=== PATIENT | male | born 1950 | race Caucasian/White ===

== ENCOUNTER 2017-02-07 16:03 | Emergency (ER) | payer OTHER ==
[~2017-02-07] VITALS: Ht 172.7 cm; Wt 81.6 kg
[~2017-02-07 16:03] MED LIST: AMLO5TAB4 PO; ASPCH81X PO; CHOL1CAP57 PO; CYCL10TA6 PO; HYDR-3983 PO; IPRA1AER2 INH; LPR25 PO; SIMV20TA5 PO
[2017-02-07 16:06] VITALS: BP 143/95; PULSE 76; TEMP 36.8; O2SAT 96; Ht 172.7 cm; Wt 81.6 kg
[2017-02-07] MEDS ORDERED: LIDOCAINE/EPINEPHRINE 1% 20 ML VIAL INFIL ONE (16:30)
--- NOTE | 2017-02-07 16:48 | DIAGNOSTIC IMAGING REPORT ---
LEFT HAND 3 VIEWS CLINICAL HISTORY: Laceration. Clinical concern for foreign body. FINDINGS: 3 views of left hand are compared to study dated 06/01/2007. The skeletal structures are osteopenic. No fracture is seen. Mild osteoarthritic change is present at the first carpometacarpal and metacarpophalangeal joints. Mild osteoarthritic change is also present involving the interphalangeal joints, distal greater than proximal. The overlying soft tissues are within normal limits. No radiodense foreign body is identified. IMPRESSION: 1. Osteopenia and arthritic change as above. No acute bony abnormality is identified. 2. There is no radiodense foreign body identified as clinically queried. Electronically signed by: Richie Freire M.D. 02/07/2017 4:47 PM Dictated Date/Time: 02/07/2017 4:45 PM
--- NOTE | 2017-02-07 17:33 | EMERGENCY ROOM VISIT NOTE ---
ED Visit Note First contact with patient: 16:10 The patient was seen and examined with Felicia Cruz PA-C. I agree with the history, physical and findings. Please see the note for disposition and details.
[2017-02-07] MEDS ORDERED: DOXY100C PO (17:34)
--- NOTE | 2017-02-07 17:34 | EMERGENCY ROOM VISIT NOTE ---
ED Visit Note First contact with patient: 16:10 CHIEF COMPLAINT: Left hand laceration HISTORY OF PRESENT ILLNESS: This 66-year-old male patient presents to the emergency department ambulatory after cutting the left hand just prior to arrival. The patient states that he was carrying firewood when he tripped and fell, causing a laceration to his left palm. The bleeding has not stopped. Denies weakness or numbness of the hand or finger. The patient rates the pain as sharp and 7/10. The patient denies any other injuries. The patient's Tetanus shot is up to date. REVIEW OF SYSTEMS: A 6 system review of systems was completed with positives and pertinent negatives listed in the HPI. ALLERGIES: Keflex MEDICATIONS: See med list PMH: Hypertension, hyperlipidemia SOCIAL HISTORY: Patient lives locally with family. He is a smoker and denies alcohol use. PHYSICAL EXAM: Vital Signs: Reviewed Nurse's notes, vital signs stable. GENERAL : This is a 66-year-old male, in no acute distress, well-developed, well- nourished. SKIN: There is a 2.5 cm long laceration on the palmar aspect of the left hand, just proximal to the first digit. The edges gape apart with traction. There is a small amount of debris within the wound with no significant foreign bodies. There is minimal active bleeding. No deep structures such as tendons, bones, or significant blood vessels are seen in the base of the wound. Normal strength and movement of the left thumb. Capillary refill less than 2 seconds. Normal sensation to light and sharp touch. EMERGENCY DEPARTMENT COURSE: I examined the patient. Verbal consent was obtained to perform the procedure. Using sterile technique the wound was cleansed with Betadine. The area was sterilely draped. 5 ml of 1% buffered lidocaine with epinephrine was used to anesthetize the laceration on the left hand. Once the patient was anesthetized, the wound was copiously irrigated under pressure with sterile saline. A small amount of debris was removed from the wound. The wound was explored and was as described above. The laceration was repaired using 5 simple interrupted 5-0 nylon sutures with the wound edges being well approximated. The patient tolerated the procedure well. Hemostasis was achieved. The area was cleaned with sterile saline and dressed with bacitracin ointment and bandage. As the wound was dirty, the patient will be placed on prophylactic antibiotics. He has an allergy to Keflex and therefore will be placed on doxycycline. The patient was discharged home in good condition. DIAGNOSIS: Left hand laceration Problem List Medical Problems: (1) Asthma Status: Chronic (2) History of leg surgery Status: Resolved (3) HTN (hypertension) Status: Chronic Current/Historical Medications Scheduled Amlodipine Besylate (Norvasc), 5 MG PO QPM Aspirin (Aspirin Chewable), 81 MG PO QPM Cholecalciferol (Vitamin D3), 1,000 UNITS PO QPM Doxycycline Hyclate (Vibramycin), 100 MG PO BID Hydrocodone/Acetaminophen 7.5MG/325MG ([place] 7.5MG/325MG), 1 TAB PO AMHS Ipratropium-Albuterol (Combivent Respimat), 1 PUFFS INH QID Metoprolol Tartrate (Lopressor), 25 MG PO BID Simvastatin (Zocor), 10 MG PO QPM Scheduled PRN Cyclobenzaprine Hcl (Flexeril), 10 MG PO BID PRN for Pain Allergies Coded Allergies: Cephalexin (Unverified Adverse Reaction, Unknown, throwing up, diahria , ) Vital Signs Date Time Temp Pulse Resp B/P Pulse Ox O2 Delivery O2 Flow Rate FiO2 02/07/17 16:06 36.8 76 18 143/95 96 Room Air Departure Information Impression Primary Impression: Hand laceration Dispostion Home / Self-Care Condition GOOD Prescriptions Doxycycline Hyclate (VIBRAMYCIN) 100 Mg Cap 100 MG PO BID for 7 Days, #14 CAP Prov: Felicia Cruz ., BRYON 02/07/17 Referrals Micheal Nelson M.D.([facility]) (PCP) Patient Instructions My [facility] Additional Instructions You have received 5 sutures on your hand. These sutures are NOT dissolvable and WILL need to be removed by a health care provider in 10-12 days. You can return to the Emergency Department or contact your Primary Care Provider to have the sutures removed. Proper wound care is essential for adequate wound healing and infection prevention. You can shower and clean the wound with soap and water. Do not scour over the wound, pat dry with a towel. Do not submerse the wound (i.e. bathe or dish wash) until the sutures have been removed. You can use an antibiotic ointment with a dressing over the wound for the next 3-4 days. After this time you may leave the wound dry and open to the air. If crust develops over the wound you can use a Q-tip to apply a 1:1 peroxide:water solution to clean the wound. Look for signs of infection of the wound including: increased pain, swelling, foul discharge, streaking, or increased temperature. If any of these are noticed you should return to the Emergency Department for further assessment and treatment. As with any laceration you may have received nerve damage to the surrounding tissues. This damage may or may not be permanent. You should keep the area covered with sunscreen for the first 6 months to 1 year when at risk for exposure to help minimize scarring. You can also use scar reducing creams or Vitamin E oil to help minimize scarring. For pain control, you can use the following noic-nns-zvzbepa medicines (if >12 yo): - Regular strength (325mg/tab) Tylenol (acetaminophen) 2 tabs every 4-6 hours as needed. Do not exceed 12 tablets in a 24 hour period. Avoid taking more than 4 grams (4000 mg) of Tylenol per day. This includes any other sources of acetaminophen you may take on a regular basis. - Regular strength (200 mg/tab) Advil (ibuprofen) 1-2 tabs every 4-6 hours as needed. Do not exceed a dose of 3200 mg per day. You were prescribed doxycycline to be taken twice daily as prescribed. This is an antibiotic. All antibiotics have the potential to cause diarrhea. Stop this medication and contact a medical provider if you were to develop any significant adverse side effects including: wheezing, shortness of breath, passing out, vomiting, or a diffuse rash. Always take antibiotics as directed and COMPLETE the ENTIRE course regardless of the improvement of your symptoms. Return to the emergency department if your symptoms worsen despite treatment course outlined above. Problem Qualifiers Primary Impression: Hand laceration Encounter type: initial encounter Foreign body presence: without foreign body Laterality: left Qualified Codes: S61.412A - Laceration without foreign body of left hand, initial encounter
== END 2017-02-07 17:44 | disposition home or self-care (01) ==
LOC: C.EDB 16:05 → C.EDD 17:44
DX: S61.412A Laceration without foreign body of left hand, initial encounter (principal); I10 Essential (primary) hypertension; E78.5 Hyperlipidemia, unspecified; J45.909 Unspecified asthma, uncomplicated; Z79.82 Long term (current) use of aspirin; Z79.899 Other long term (current) drug therapy; W01.0XXA Fall on same level from slipping, tripping and stumbling without subsequent striking against object, initial encounter; Y93.89 Activity, other specified; F17.200 Nicotine dependence, unspecified, uncomplicated

== ENCOUNTER 2017-02-19 19:12 | Emergency (ER) | payer OTHER ==
[~2017-02-19] VITALS: Ht 172.7 cm; Wt 83.4 kg
[2017-02-19 19:15] VITALS: BP 123/79; PULSE 78; TEMP 36.4; O2SAT 100; Ht 172.7 cm; Wt 83.4 kg
--- NOTE | 2017-02-19 23:44 | EMERGENCY ROOM VISIT NOTE ---
ED Visit Note First contact with patient: 19:23 CHIEF COMPLAINT: Suture removal HISTORY OF PRESENT ILLNESS: This 67-year-old male patient returns to the ED today for removal of sutures that were placed 13 days ago. There has been no swelling, redness, or drainage from the wound. The patient feels like the laceration is healing well. REVIEW OF SYSTEMS: A 6 system review of systems was completed with positives and pertinent negatives listed in the HPI. PMH: Unchanged from previous visit. ALLERGIES: No known allergies PHYSICAL EXAM: Vital Signs: Reviewed Nurse's notes, vital signs stable. GENERAL : Male, in no acute distress. SKIN: There is a sutured wound on the left hand with no signs of infection. There is no erythema, swelling, or tenderness. EMERGENCY DEPARTMENT COURSE: 5 sutures were removed without any difficulty and there was no separation of the wound edges. The patient was discharged home in good condition. Problem List Medical Problems: (1) Asthma Status: Chronic (2) History of leg surgery Status: Resolved (3) HTN (hypertension) Status: Chronic Current/Historical Medications Scheduled Amlodipine Besylate (Norvasc), 5 MG PO QPM Aspirin (Aspirin Chewable), 81 MG PO QPM Cholecalciferol (Vitamin D3), 1,000 UNITS PO QPM Hydrocodone/Acetaminophen 7.5MG/325MG ([place] 7.5MG/325MG), 1 TAB PO AMHS Ipratropium-Albuterol (Combivent Respimat), 1 PUFFS INH QID Metoprolol Tartrate (Lopressor), 25 MG PO BID Simvastatin (Zocor), 10 MG PO QPM Scheduled PRN Cyclobenzaprine Hcl (Flexeril), 10 MG PO BID PRN for Pain Allergies Coded Allergies: Cephalexin (Unverified Adverse Reaction, Unknown, throwing up, diahria , ) Vital Signs Date Time Temp Pulse Resp B/P Pulse Ox O2 Delivery O2 Flow Rate FiO2 02/19/17 19:15 36.4 78 18 123/79 100 Room Air Departure Information Impression Primary Impression: Encounter for removal of sutures Dispostion Home / Self-Care Condition GOOD Referrals Micheal Nelson M.D.([facility]) (PCP) Forms HOME CARE DOCUMENTATION FORM, IMPORTANT VISIT INFORMATION Patient Instructions [facility], ED Scar Tips to Minimize Additional Instructions Wash off any remaining debris and return to activity as tolerated.
== END 2017-02-19 19:36 | disposition home or self-care (01) ==
LOC: C.EDB 19:14 → C.EDD 19:36
DX: Z48.02 Encounter for removal of sutures (principal); I10 Essential (primary) hypertension; J45.909 Unspecified asthma, uncomplicated; Z98.890 Other specified postprocedural states; Z79.82 Long term (current) use of aspirin; Z79.899 Other long term (current) drug therapy; Z88.8 Allergy status to other drugs, medicaments and biological substances

== ENCOUNTER 2017-06-05 12:30 | Emergency (ER) | payer OTHER ==
[~2017-06-05] VITALS: Ht 172.7 cm; Wt 82.0 kg
[2017-06-05 12:44] VITALS: Ht 172.7 cm; Wt 82.0 kg
[2017-06-05 13:29] LABS: COMPLETE YES; EOS % 0.5 %; HEMATOCRIT 43.2 % (42-52); IG% 0.1 %; LYMPH % 22.2 %; LYMPH ABS # 1.72 K/uL (1.2-3.4); MEAN CELL VOLUME 87.6 fL (80-100); MEAN CORPUSCULAR HEMOGLOBIN 30.2 pg (25-34); MEAN CORPUSCULAR HGB CONC 34.5 g/dl (32-36); MEAN PLATELET VOLUME 11.8 fL (7.4-10.4); MONO % 9.9 %; NEUT % 67.3 %; PLATELET COUNT 135 K/uL (130-400); RED BLOOD COUNT 4.93 M/uL (4.7-6.1); WHITE BLOOD COUNT 7.74 K/uL (4.8-10.8)
[2017-06-05] MEDS ORDERED: MoRPHine SULFATE 4 MG/ML 1 ML CARP\\VIAL IV STA ×2 (13:46→15:01)
[2017-06-05] MEDS ORDERED: SODIUM CHLORIDE 0.9% 1000ML 1,000 ML IV STA (13:46)
[2017-06-05] MEDS ORDERED: SODIUM CHLORIDE 0.9% 500ML 500 ML IV STA (13:46)
[2017-06-05] MEDS ORDERED: ONDANSETRON INJ 2 MG/ML 2 ML VIAL IV STA (13:46)
[2017-06-05 13:55] LABS: BUN/CREATININE RATIO 21.4 (10-20); CREATININE 0.85 mg/dl (0.60-1.40)
[2017-06-05 13:56] LABS: MANUAL MICROSCOPIC REQUIRED? NO; REVIEW REQ? NO; URINE APPEARANCE CLOUDY (CLEAR); URINE BILIRUBIN NEG (NEG); URINE COLOR DK YELLOW; URINE NITRITE NEG (NEG); URINE PH 5.5 (4.5-7.5); URINE SPECIFIC GRAVITY 1.021 (1.000-1.030); UROBILINOGEN NEG (NEG); ZZUR CULT IF INDIC CLEAN CATCH NO
[2017-06-05 13:58] LABS: ALB/GLOB RATIO 1.1 (0.9-2)
--- NOTE | 2017-06-05 14:05 | EMERGENCY ROOM VISIT NOTE ---
History Report prepared by Vidal: Crista Alarcon Under the Supervision of: Dr. Vandana Daugherty M.D. First contact with patient: 13:35 Chief Complaint: ABDOMINAL PAIN Stated Complaint: ABD PAIN Nursing Triage Summary: Pt c/o abd pain, states "I have had diverticulitis in the past and feels the same." History of Present Illness The patient is a 67 year old male who presents to the Emergency Room with complaints of persistent lower abdominal pain starting last night. The patient had some constipation last night. His stools were small and brown. This morning , his stool had some bright red blood. His lower abdominal pain also started last night. He states that it feels like his previous diverticulitis. It has been a couple years since his last flare up. He had a colonoscopy recently which showed 3 pouches. He usually tries to watch what he eats, but notes that he did eat some cracker niraj recently. He denies any urinary symptoms. He does smoke 0.5 ppd. He denies any history of cancer, heart disease, or diabetes. Source of History: patient Onset: last night Position: abdomen (lower) Quality: other (persistent) Timing: other (diverticulitis-like) Associated Symptoms: + hematochezia, No urinary symptoms Note: Pt reports constipation. Review of Systems See HPI for pertinent positives & negatives. A total of 10 systems reviewed and were otherwise negative. Past Medical & Surgical Medical Problems: (1) Asthma (2) History of leg surgery (3) HTN (hypertension) Family History Cancer Diabetes mellitus FH: heart disease FHx: gallbladder disease Hypertension Social History Smoking Status: Never Smoker Alcohol Use: none Drug Use: none Marital Status: Housing Status: lives with significant other Occupation Status: employed Current/Historical Medications Scheduled Amlodipine Besylate (Norvasc), 5 MG PO QPM Aspirin (Aspirin Chewable), 81 MG PO QPM Cholecalciferol (Vitamin D3), 1,000 UNITS PO QPM Hydrocodone/Acetaminophen 7.5MG/325MG ([place] 7.5MG/325MG), 1 TAB PO AMHS Metoprolol Tartrate (Lopressor), 25 MG PO BID Simvastatin (Zocor), 10 MG PO QPM Scheduled PRN Cyclobenzaprine Hcl (Flexeril), 10 MG PO BID PRN for Pain Ipratropium-Albuterol (Combivent Respimat), 1 PUFFS INH QID PRN for Shortness of Breath Allergies Coded Allergies: Cephalexin (Unverified Adverse Reaction, Unknown, throwing up, diahria , ) Physical Exam Vital Signs Date Time Temp Pulse Resp B/P (MAP) Pulse Ox O2 Delivery O2 Flow Rate FiO2 06/05/17 17:45 36.5 86 18 156/86 92 06/05/17 17:00 75 23 148/101 95 06/05/17 16:55 76 19 94 06/05/17 16:50 79 22 94 06/05/17 16:45 76 15 97 06/05/17 16:40 77 22 94 06/05/17 16:35 70 13 95 06/05/17 16:30 79 24 157/84 93 06/05/17 16:28 157/90 06/05/17 16:25 76 14 92 06/05/17 16:20 84 17 87 06/05/17 16:15 80 19 89 06/05/17 16:10 86 19 93 06/05/17 16:09 134/112 06/05/17 16:05 86 19 06/05/17 16:00 87 37 06/05/17 15:55 93 31 06/05/17 15:50 93 38 06/05/17 15:45 88 21 06/05/17 15:40 83 24 06/05/17 15:35 81 23 06/05/17 15:20 82 16 06/05/17 15:15 84 46 06/05/17 15:10 82 26 06/05/17 15:05 86 20 06/05/17 15:00 81 19 06/05/17 13:55 82 18 159/98 93 Room Air 06/05/17 13:24 91 06/05/17 12:44 36.5 104 20 122/79 92 Room Air Physical Exam Vital signs reviewed. General: Well-appearing male, in no significant distress. HEENT: No scleral icterus, PERRLA, neck supple. Atraumatic. Cardiovascular: Regular rate and rhythm, no extra sounds. Pulmonary: Clear to auscultation bilaterally, normal work of breathing. Abdomen: Soft, tender to the LLQ, positive rebound, positive guarding, nondistended, positive bowel sounds. Musculoskeletal: Atraumatic, no peripheral edema. Neurologic: Patient awake alert and oriented x 3 Skin: Warm, dry, no rash Medical Decision & Procedures ER Provider Diagnostic Interpretation: Radiology results as stated below per my review and radiologist interpretation: ABD/PELVIS IV CONTRAST ONLY CT DOSE: 739.23 mGycm HISTORY: Pain LLQ pain TECHNIQUE: Multiaxial CT images of the abdomen and pelvis were performed following the use of intravenous contrast. A dose lowering technique was utilized adhering to the principles of ALARA. COMPARISON STUDY: 07/09/2014 FINDINGS: Mild bibasilar atelectasis. Liver spleen and pancreas are uniform. Several small microcysts as well as a small hemangioma potentially are present within the liver. These are similar compared to the prior study. Kidneys negative for calcification or hydronephrosis. There is a 5 mm cortical right renal cyst. The bowel pattern in the abdomen is considered nonobstructive. There is wall edematous change of the distal transverse as well as descending colonic region. Mild pericolonic infiltrative change is present. There is no evidence for abscess collection or obstruction. Atherosclerotic change and ectasia of the abdominal aorta as well as iliac vasculature. No free fluid within the pelvic cul-de-sac. Bladder is midline. Patient is status post left hip pinning. IMPRESSION: 1. Nonspecific colitis involving the descending colon as well as distal transverse colon. 2. [Moderate pericolonic infiltrative change, although there is no evidence for abscess collection or obstruction]. 3. Study is otherwise negative The above report was generated using voice recognition software. It may contain grammatical, syntax or spelling errors. Electronically signed by: Magdaleno Valadez M.D. 06/05/2017 3:00 PM Dictated Date/Time: 06/05/2017 2:56 PM Laboratory Results 06/05/17 13:05 Red Blood Count 4.93, Mean Corpuscular Volume 87.6, Mean Corpuscular Hemoglobin 30.2, Mean Corpuscular Hemoglobin Concent 34.5, Mean Platelet Volume 11.8, Neutrophils (%) (Auto) 67.3, Lymphocytes (%) (Auto) 22.2, Monocytes (%) (Auto) 9.9, Eosinophils (%) (Auto) 0.5, Basophils (%) (Auto) 0.0, Neutrophils # (Auto) 5.20, Lymphocytes # (Auto) 1.72, Monocytes # (Auto) 0.77, Eosinophils # (Auto) 0.04, Basophils # (Auto) 0.00 06/05/17 13:05 Test 06/05/17 13:05 06/05/17 13:40 White Blood Count 7.74 K/uL (4.8-10.8) Red Blood Count 4.93 M/uL (4.7-6.1) Hemoglobin 14.9 g/dL (14.0-18.0) Hematocrit 43.2 % (42-52) Mean Corpuscular Volume 87.6 fL (80-100) Mean Corpuscular Hemoglobin 30.2 pg (25-34) Mean Corpuscular Hemoglobin Concent 34.5 g/dl (32-36) Platelet Count 135 K/uL (130-400) Mean Platelet Volume 11.8 fL (7.4-10.4) Neutrophils (%) (Auto) 67.3 % Lymphocytes (%) (Auto) 22.2 % Monocytes (%) (Auto) 9.9 % Eosinophils (%) (Auto) 0.5 % Basophils (%) (Auto) 0.0 % Neutrophils # (Auto) 5.20 K/uL (1.4-6.5) Lymphocytes # (Auto) 1.72 K/uL (1.2-3.4) Monocytes # (Auto) 0.77 K/uL (0.11-0.59) Eosinophils # (Auto) 0.04 K/uL (0-0.5) Basophils # (Auto) 0.00 K/uL (0-0.2) RDW Standard Deviation 46.4 fL (36.4-46.3) RDW Coefficient of Variation 14.5 % (11.5-14.5) Immature Granulocyte % (Auto) 0.1 % Immature Granulocyte # (Auto) 0.01 K/uL (0.00-0.02) Anion Gap 7.0 mmol/L (3-11) Est Creatinine Clear Calc Drug Dose 80.4 ml/min Estimated GFR () 103.8 Estimated GFR (Non- 89.5 BUN/Creatinine Ratio 21.4 (10-20) Calcium Level 9.0 mg/dl (8.5-10.1) Total Bilirubin 0.5 mg/dl (0.2-1) Aspartate Amino Transf (AST/SGOT) 16 U/L (15-37) Alanine Aminotransferase (ALT/SGPT) 16 U/L (12-78) Alkaline Phosphatase 75 U/L (45-117) Total Protein 7.2 gm/dl (6.4-8.2) Albumin 3.7 gm/dl (3.4-5.0) Globulin 3.5 gm/dl (2.5-4.0) Albumin/Globulin Ratio 1.1 (0.9-2) Lipase 93 U/L (73-393) Urine Color DK YELLOW Urine Appearance CLOUDY (CLEAR) Urine pH 5.5 (4.5-7.5) Urine Specific [place] 1.021 (1.000-1.030) Urine Protein NEG (NEG) Urine Glucose (UA) NEG (NEG) Urine Ketones NEG (NEG) Urine Occult Blood NEG (NEG) Urine Nitrite NEG (NEG) Urine Bilirubin NEG (NEG) Urine Urobilinogen NEG (NEG) Urine Leukocyte Esterase NEG (NEG) Urine WBC (Auto) 1-5 /hpf (0-5) Urine RBC (Auto) 0-4 /hpf (0-4) Urine Hyaline Casts (Auto) 1-5 /lpf (0-5) Urine Epithelial Cells (Auto) 5-10 /lpf (0-5) Urine Bacteria (Auto) NEG (NEG) Laboratory results per my review. Medications Administered Medications (Trade) Dose Ordered Sig/Karla Route Start Time Stop Time Status Last Admin Dose Admin Sodium Chloride 500 ml @ 999 mls/hr Q31M STAT IV 06/05/17 13:46 06/05/17 14:16 DC 06/05/17 13:54 999 MLS/HR Sodium Chloride 1,000 ml @ 125 mls/hr Q8H STAT IV 06/05/17 13:46 06/05/17 19:19 DC 06/05/17 13:54 125 MLS/HR Morphine Sulfate (MoRPHine SULFATE INJ) 4 mg NOW STAT IV 06/05/17 13:46 06/05/17 13:48 DC 06/05/17 13:55 4 MG Ondansetron HCl (Zofran Inj) 4 mg NOW STAT IV 06/05/17 13:46 06/05/17 13:48 DC 06/05/17 13:54 4 MG Morphine Sulfate (MoRPHine SULFATE INJ) 4 mg NOW STAT IV 06/05/17 15:01 06/05/17 15:02 DC 06/05/17 15:01 4 MG Acetaminophen/ Hydrocodone Bitart ([place] 5/325mg Home Pack) 1 homepack UD ONCE PO 06/05/17 17:15 06/05/17 17:16 DC 06/05/17 17:15 1 HOMEPACK ED Course 1343: Past medical records reviewed. The patient was evaluated in room A11B. A complete history and physical examination was performed. 1346: Zofran Inj 4 mg IV, Morphine Sulfate 4 mg IV, NSS 1000 ml @ 125 mls/hr IV , NSS 500 ml @ 999 mls/hr IV. 1501: Morphine Sulfate 4 mg IV. 1525: I reevaluated the patient. I updated him on the results. 1705: Upon reevaluation, the patient appeared to have improvement of his symptoms. I discussed findings with him. He verbalized agreement of the treatment plan. He was discharged home. 1715: Hydrocodone Bitart/Acetaminophen 1 homepack PO. Medical Decision Differential diagnosis: Etiologies such as appendicitis, diverticulitis, PUD, biliary pathology, UTI, pancreatitis, obstruction, mesenteric ischemia, aortic pathology, infections, inflammatory bowel disease, renal colic, as well as others were entertained. This patient was evaluated and appeared to be in no significant distress. Physical exam is consistent with a left lower quadrant abdominal tenderness. CT scan of the abdomen and pelvis was performed to rule out acute diverticulitis. This study reveals a nonspecific colitis with no abscess or perforation. The patient was in the ER for multiple hours and was unable to provide a stool specimen. He was hydrated with normal saline solution and given IV morphine and Zofran 2. Patient was advised to maintain a bland diet and drink plan fluids. He was discharged with a [place] home pack. He'll follow- up with his physician this week for reevaluation. He will return to the ER for worsening of symptoms or any medical concerns. Medication Reconcilliation Current Medication List: was personally reviewed by me Blood Pressure Screening Patient's blood pressure: Elevated blood pressure Blood pressure disposition: Elevated BP felt to be situational Impression Primary Impression: Colitis Scribe Attestation The scribe's documentation has been prepared under my direction and personally reviewed by me in its entirety. I confirm that the note above accurately reflects all work, treatment, procedures, and medical decision making performed by me. Departure Information Dispostion Home / Self-Care Referrals No Doctor, Assigned (PCP) Sharon Cat C.R.N.PRegi Forms HOME CARE DOCUMENTATION FORM, IMPORTANT VISIT INFORMATION Patient Instructions My [facility] Additional Instructions Diagnosis: Colitis Drink plenty of fluids [place] diet, avoid greasy spicy foods. [place] 1-2 tabs every 6 hours as needed for pain, do not drive or take tylenol with this medication Follow up with your doctor this week for reevaluation Return to the ED for worsening of symptoms or any medical concerns.
[2017-06-05] MEDS ORDERED: OPTIRAY 320 IV PRN (14:15)
--- NOTE | 2017-06-05 15:01 | DIAGNOSTIC IMAGING REPORT ---
ABD/PELVIS IV CONTRAST ONLY CT DOSE: 739.23 mGycm HISTORY: Pain LLQ pain TECHNIQUE: Multiaxial CT images of the abdomen and pelvis were performed following the use of intravenous contrast. A dose lowering technique was utilized adhering to the principles of ALARA. COMPARISON STUDY: 07/09/2014 FINDINGS: Mild bibasilar atelectasis. Liver spleen and pancreas are uniform. Several small microcysts as well as a small hemangioma potentially are present within the liver. These are similar compared to the prior study. Kidneys negative for calcification or hydronephrosis. There is a 5 mm cortical right renal cyst. The bowel pattern in the abdomen is considered nonobstructive. There is wall edematous change of the distal transverse as well as descending colonic region. Mild pericolonic infiltrative change is present. There is no evidence for abscess collection or obstruction. Atherosclerotic change and ectasia of the abdominal aorta as well as iliac vasculature. No free fluid within the pelvic cul-de-sac. Bladder is midline. Patient is status post left hip pinning. IMPRESSION: 1. Nonspecific colitis involving the descending colon as well as distal transverse colon. 2. [Moderate pericolonic infiltrative change, although there is no evidence for abscess collection or obstruction]. 3. Study is otherwise negative The above report was generated using voice recognition software. It may contain grammatical, syntax or spelling errors. Electronically signed by: Magdaleno Valadez M.D. 06/05/2017 3:00 PM Dictated Date/Time: 06/05/2017 2:56 PM
[2017-06-05] MEDS ORDERED: NORCO 5/325MG HOME PACK PO ONE (17:15)
[2017-06-05 17:45] VITALS: BP 156/86; PULSE 86; TEMP 36.5; O2SAT 92
== END 2017-06-05 16:55 | disposition home or self-care (01) ==
LOC: C.EDB 12:31 → C.EDA 16:55
DX: K52.9 Noninfective gastroenteritis and colitis, unspecified (principal); J45.909 Unspecified asthma, uncomplicated; I10 Essential (primary) hypertension; Z98.890 Other specified postprocedural states; Z79.82 Long term (current) use of aspirin; Z79.899 Other long term (current) drug therapy; Z88.8 Allergy status to other drugs, medicaments and biological substances; Z80.9 Family history of malignant neoplasm, unspecified; Z83.3 Family history of diabetes mellitus; Z82.49 Family history of ischemic heart disease and other diseases of the circulatory system; Z83.79 Family history of other diseases of the digestive system

== ENCOUNTER 2017-11-03 14:51 | Emergency (ER) | payer OTHER ==
[~2017-11-03] VITALS: Ht 172.7 cm; Wt 83.0 kg
[2017-11-03 15:00] VITALS: Ht 172.7 cm; Wt 83.0 kg
[2017-11-03] MEDS ORDERED: OXYCODONE HCL IR 5 MG TAB (IMMEDIATE RELEASE) PO STA (15:08)
[2017-11-03] MEDS ORDERED: KETOROLAC TROMETHAMINE 60 MG/2 ML VIAL IM STA (15:08)
[2017-11-03] MEDS ORDERED: CYCLOBENZAPRINE HCL 10 MG TAB PO STA (15:08)
--- NOTE | 2017-11-03 15:56 | DIAGNOSTIC IMAGING REPORT ---
LUMBAR SPINE 5 VIEWS CLINICAL HISTORY: Low back pain. FINDINGS: 5 views of the lumbar spine are correlated with abdominal CT dated 06/05/2017. The skeletal structures are osteopenic. There is no radiographic evidence of fracture or malalignment involving the lumbar spine. Vertebral body height is maintained throughout the lumbar spine. Minimal retrolisthesis is seen at L3-L4. Alignment is otherwise preserved. There is straightening of the lumbar lordosis. The transverse and spinous processes appear intact. Anterior and lateral marginal osteophytes are seen throughout. There is moderate disc space narrowing at L3-L4 with associated endplate sclerosis. A similar finding is seen at L5-S1. Mild disc space narrowing is seen at L4-L5. The remaining disc spaces are maintained. Mild facet arthropathy is noted in the lower lumbar region. The bony pelvis is intact as imaged. Sclerotic change is seen in the sacroiliac joints, left greater than right. Postoperative change is partially visualized in the left femur. There is advanced atherosclerotic calcification and ectasia of the abdominal aorta. No bowel obstruction is seen. IMPRESSION: 1. No acute bony abnormality is seen involving the lumbar spine. 2. Osteopenia and multilevel spondylosis as above. This is similar in appearance to prior studies. Dictated: 11/03/2017 3:46 PM Transcribed: 11/03/2017 3:56 PM [facility] Electronically signed by: Richie Freire M.D. 11/03/2017 3:59 PM Dictated Date/Time: 11/03/2017 3:46 PM
--- NOTE | 2017-11-03 16:27 | EMERGENCY ROOM VISIT NOTE ---
ED Visit Note First contact with patient: 15:03 CHIEF COMPLAINT: Low back pain HISTORY OF PRESENT ILLNESS: This 67-year-old male presents to the ER with chief complaint of low back pain. The patient states yesterday he was shoveling snow and then went to clam picker a 25 pound salt bag and got pain in his lower back. The patient states he initially had some pain radiating down his left leg to his knee but that has resolved. The patient denies any numbness and tingling. The patient denies any loss of bowel or bladder control. The patient denies any saddle anesthesia. The patient states that he sat in a chair most of the day yesterday after he was finished shoveling since he could barely move. He took a Vicodin today just to get into the ER. The patient denies any chronic back pain. REVIEW OF SYSTEMS: 6 system review was performed and was negative unless stated otherwise in history of present illness. PMH: The patient is healthy; kidney disease SOCIAL HISTORY: Patient lives with his . The patient admits to tobacco use but denies any alcohol use. PHYSICAL EXAM: Vital Signs normal: Reviewed Nurse's notes and agree. GENERAL: 67-year-old male appears uncomfortable secondary to back pain. MENTAL STATUS: Alert and oriented in no acute distress. LUMBAR SPINE: No gross bony abnormality noted. Patient is tender to palpation over the lower spinous processes. He is mildly tender to palpation over the paravertebral regions bilaterally. He has limited range of motion in all directions secondary to pain. NEURO: Patient is able to heel and toe walk without difficulty. I lateral patellar and Achilles reflexes are 2+. Sensation is intact to pinprick bilateral lower extremities. Negative straight leg raise bilaterally. EMERGENCY DEPARTMENT COURSE: The patient was evaluated. The patient was given Toradol 60 mg IM, OxyIR 10 mg p.o. and Flexeril 10 mg p.o. X-ray of the lumbar spine was ordered and interpreted by the radiologist and myself. DIAGNOSTICS:LUMBAR SPINE 5 VIEWS CLINICAL HISTORY: Low back pain. FINDINGS: 5 views of the lumbar spine are correlated with abdominal CT dated 06/05/2017. The skeletal structures are osteopenic. There is no radiographic evidence of fracture or malalignment involving the lumbar spine. Vertebral body height is maintained throughout the lumbar spine. Minimal retrolisthesis is seen at L3-L4. Alignment is otherwise preserved. There is straightening of the lumbar lordosis. The transverse and spinous processes appear intact. Anterior and lateral marginal osteophytes are seen throughout. There is moderate disc space narrowing at L3-L4 with associated endplate sclerosis. A similar finding is seen at L5-S1. Mild disc space narrowing is seen at L4-L5. The remaining disc spaces are maintained. Mild facet arthropathy is noted in the lower lumbar region. The bony pelvis is intact as imaged. Sclerotic change is seen in the sacroiliac joints, left greater than right. Postoperative change is partially visualized in the left femur. There is advanced atherosclerotic calcification and ectasia of the abdominal aorta. No bowel obstruction is seen. IMPRESSION: 1. No acute bony abnormality is seen involving the lumbar spine. 2. Osteopenia and multilevel spondylosis as above. This is similar in appearance to prior studies. Dictated: 11/03/2017 3:46 PM Transcribed: 11/03/2017 3:56 PM [facility] Electronically signed by: Richie Freire M.D. 11/03/2017 3:59 PM Dictated Date/Time: 11/03/2017 3:46 PM The patient was informed of the findings. The patient stated he was feeling much better. The patient was independently evaluated by Dr. shipman who agrees with treatment plan. The patient was discharged home in stable condition with his driving.. DIAGNOSIS: Lumbar strain DISCHARGE INSTRUCTIONS AND TREATMENT: Ibuprofen 600 mg every 6 hours with food for pain. Rx is given for Vicodin Oxy IR mg. 1-2 tablets every 6 hours as needed for more severe pain. Dispense [address] taking the OxyIR. Patient was also given Rx for Flexeril 10 mg. One tablet p.o. every 8 hours for muscle spasms. Dispense [address] taking the Flexeril. Avoid staying in any one position for an extended period of time. Follow-up with your family doctor on Tuesday for reevaluation. If symptoms worsen in the interim, return to ER. Problem List Medical Problems: (1) Asthma Status: Chronic (2) History of leg surgery Status: Resolved (3) HTN (hypertension) Status: Chronic Current/Historical Medications Scheduled Amlodipine Besylate (Norvasc), 5 MG PO QPM Aspirin (Aspirin Chewable), 81 MG PO QPM Cholecalciferol (Vitamin D3), 1,000 UNITS PO QPM Hydrocodone/Acetaminophen 7.5MG/325MG ([place] 7.5MG/325MG), 1 TAB PO AMHS Metoprolol Tartrate (Lopressor), 25 MG PO BID Simvastatin (Zocor), 10 MG PO QPM Scheduled PRN Cyclobenzaprine Hcl (Flexeril), 10 MG PO BID PRN for Pain Ipratropium-Albuterol (Combivent Respimat), 1 PUFFS INH QID PRN for Shortness of Breath Allergies Coded Allergies: Cephalexin (Unverified Adverse Reaction, Unknown, throwing up, diahria , ) Vital Signs Date Time Temp Pulse Resp B/P (MAP) Pulse Ox O2 Delivery O2 Flow Rate FiO2 11/03/17 15:00 36.5 101 18 115/78 91 Room Air Medications Administered Medications (Trade) Dose Ordered Sig/Karla Route Start Time Stop Time Status Last Admin Dose Admin Ketorolac Tromethamine (Toradol Inj) 60 mg NOW STAT IM 11/03/17 15:08 11/03/17 15:11 DC 11/03/17 15:32 60 MG Cyclobenzaprine HCl (Flexeril Tab) 10 mg NOW STAT PO 11/03/17 15:08 11/03/17 15:11 DC 11/03/17 15:19 10 MG Oxycodone HCl (Roxicodone Immediate Rel Tab) 10 mg NOW STAT PO 11/03/17 15:08 11/03/17 15:11 DC 11/03/17 15:20 10 MG Departure Information Referrals No Doctor, Assigned (PCP) Patient Instructions [facility]
[2017-11-03] MEDS ORDERED: CYCL10TA6 PO (16:33)
[2017-11-03] MEDS ORDERED: OXYC1TAB3 PO (16:33)
[2017-11-03 17:10] VITALS: BP 115/78; PULSE 101; TEMP 36.5; O2SAT 91
== END 2017-11-03 17:11 | disposition home or self-care (01) ==
LOC: C.EDB 14:53 → C.EDD 17:11
DX: S39.012A Strain of muscle, fascia and tendon of lower back, initial encounter (principal); X50.9XXA Other and unspecified overexertion or strenuous movements or postures, initial encounter; M85.88 Other specified disorders of bone density and structure, other site

== ENCOUNTER 2019-04-03 06:10 | Observation (INO) ==
[~2019-04-03 06:10] MED LIST changes: -AMLO5TAB4 PO; -ASPCH81X PO; -CHOL1CAP57 PO; +CLINDAMYCIN 600 MG/54 ML BAG IV SCH; -CYCL10TA6 PO; -HYDR-3983 PO; -IPRA1AER2 INH; -LPR25 PO; +LR 15ML/HR IV SCH; -SIMV20TA5 PO
[2019-04-03] MEDS ORDERED: BUPIVACAINE 0.25% 30 ML VIAL ONE (07:19)
[2019-04-03] MEDS ORDERED: BACITRACIN INJ 50,000 UNIT VIAL ONE (07:19)
[2019-04-03] MEDS ORDERED: LIDOCAINE HCL 1% 20 ML VIAL ONE (07:19)
--- NOTE | 2019-04-03 08:00 | History & Physical Bridge Note ---
Date of Service April 03, 2019 History & Physical Bridge Note I have examined the patient, reviewed the History & Physical and in the interval since the performance of the History & Physical I have noted the following changes of clinical significance: no changes noted
--- NOTE | 2019-04-03 08:00 | Pre Anesthesia Assessment ---
Date of Service April 03, 2019 Pre Sedation Assessment Vital Signs Temp Pulse Resp BP Pulse Ox 04/03/19 06:40 36.4 C L 68 18 159/97 H 96 Cardiovascular RRR, no murmur, no edema Respiratory normal respiratory effort, lungs clear to auscultation Pre-Sedation Airway Assessment Smoking Status: Current every day smoker Hx Sleep Apnea: No Hx Difficult Intubation: No Short, Thick Neck: No Thyromental Distance: < 3.5 Finger Breadths Oral Cavity: + Dental Abnormalities Mallampati Class: III ASA: ASA3 NPO Status Date of Last Intake of Fluids: 04/02/19 Date of Last Intake of Solid Food: 04/02/19 Procedure Planning Contraindications for Sedation: none Current Medications Reviewed: Yes Notes The planned sedation has been discussed with the patient. Informed Consent was obtained. I have identified the patient, determined the appropriateness of sedation and have assessed the patient immediately prior to the procedure. All medicine(s) and interventions are by my order.
[2019-04-03] MEDS ORDERED: MIDAZOLAM HCL 5 MG/ML 1 ML VIAL ONE (08:10)
[2019-04-03] MEDS ORDERED: fentaNYL citrate 100 MCG/2 ML VIAL ONE (08:10)
--- NOTE | 2019-04-03 09:18 | Post Anesthesia Assessment ---
Date of Service April 03, 2019 Post Sedation Assessment Vital Signs Temp Pulse Resp BP Pulse Ox 04/03/19 06:40 36.4 C L 68 18 159/97 H 96 Recovery Score Activity: Moves 4 extremities Respiration: Deep Breath/Cough Circulation: +/-20% PreAnes Value Consciousness: Fully Awake Oxygen Saturation: > 92% On Room Air Discharge Sedation Level of Care: Fast Track Phase II Post Sedation Plan On clinical assessment, the patient appears to have tolerated the sedation without complications. Patient is recovering as anticipated. Patient will continue to be monitored by nursing and may be discharged when sedation discharge criteria are met per below protocol. Upon Completions of procedure and additional 15 minutes continue every 5 minute vital signs and the P.A.R. score; then discharge to a Phase I or Fast Track to Phase II per the following guidelines: * Discharge Patient to appropriate Phase II area if PAR is 8 or greater or return to pre- procedure baseline. The post - procedure orders will be as directed. * If PAR score is less than 8 or not return to pre-procedure baseline then patient will follow Phase I monitoring till PAR is reached for Phase II. The Phase I may be done in procedure room or may call to secure a Phase I area. * If naloxone or flumazenil are used for reversal, hold in Phase I for continued monitoring from when last reversal dose was given for a minimum of 60 minutes or longer pending the nurse and/or physician discretion of patient condition before discharge to Phase II. Please call the Sedation Physician to re-evaluate and complete post-note for discharge to Phase II area. Do NOT discharge from procedure sedation or Phase 1 until post- sedation evaluation note is complete by procedure /sedation MD Sedation Discharge Instructions to be given to the patient at discharge to home.
--- NOTE | 2019-04-03 09:18 | Operative Report ---
Post Operative Report Pre & Post Diagnosis TBS Operation Date: 04/03/19 08:00 <No data on this case meets the specified criteria> Procedure Operation Date: 04/03/19 08:00 Actual Procedures p Pacer with A/V Leads (Dual) - Tali Rodriguez DO Surgeon Tali Rodriguez, DO Higher Level Teaching Assistant none Estimated Blood Loss 15 Findings Consistent with Post-Op Diagnosis Specimens None Description of Procedure see official report I attest to the content of the Intraoperative Record and any orders documented therein. Any exceptions are noted below.
[2019-04-03] MEDS ORDERED: CYCLOBENZAPRINE HCL 10 MG TAB PO PRN (09:45)
[2019-04-03] MEDS ORDERED: IPRATROPIUM BROMIDE/ALBUTEROL respimat INH INH PRN (09:45)
[2019-04-03] MEDS: ACETAMINOPHEN 325 MG TAB PO PRN ×2 (11:44→20:40)
--- NOTE | 2019-04-03 12:22 | Discharge Summary ---
Date of Service April 03, 2019 Admission HPI Per Admitting Provider pt admitted for elective ppm implant Admission Exam Per Admitting Provider aaox3, NAD NC/AT, EOMI Supple No JVD Nrl S1/S2, No murmur CTA b/l no w/r/r soft nt/nd no LE edema b/l skin intact no focal deficits Principal Diagnosis TBS s/p dual chamber pacemaker Discharge Exam aaox3, NAD NC/AT, EOMI Supple No JVD Nrl S1/S2, No murmur CTA b/l no w/r/r soft nt/nd no LE edema b/l skin intact no focal deficits left pectoral incision intact, no hematoma mild ecchymosis ENMT Mallampati Class: III Respiratory normal respiratory effort, lungs clear to auscultation Cardiovascular RRR, no murmur, no edema Discharge Data Allergies Allergy/AdvReac Type Severity Reaction Status Date / Time cephalexin AdvReac Unknown throwing Verified 04/03/19 06:34 up, diahria Procedures Performed Operation Date: 04/03/19 08:00 Actual Procedures p Pacer with A/V Leads (Dual) - Tali Rodriguez DO Ordered Studies CXR: No PTX, leads in position ECG: SR Pacemaker Interrogation/reprogramming: Normal function and stable lead testing since implant 04/03/19 08:30 EP Lab Images for PACS ONCE Hospital Course (1) Tachy-eric syndrome: Total Time Total Time Spent Total Time Spent (In Minutes): 30 Total Time Includes: Examination of the Patient, Discharge Planning, Medication Reconciliation and Other Discharge Plan Discharge Items Patient Disposition: Home - Self-Care Reason For Visit: Tachy-Eric Syndrome Discharge Diagnosis: TBS s/p pacemaker Condition: Good Discharge Goals: Improve function Activity: As commented below Activity Comment: do not lift your left elbow over your left shoulder for 1 month Lifting: No more than 10 pounds Lifting Comment: do not lift more than 10 pounds with your left arm for 2 weeks Bathing: Keep incision dry Bathing Comment: can shower thurs let water run over the incision do not scrub it Sexual Activity: After two weeks Driving/Machine Use: Resume 1 day after discharge Non-emergency contact: Hand Ironer Follow-up/Referrals: Kimmy Han PA-C [Primary Care Provider] - Diet: Heart Healthy Addtl Provider Instructions: device and wound check as scheduled in [facility] next week if you notice any swelling call my office immediately Prescriptions: Continued CYCLOBENZAPRINE HCL (FLEXERIL) 10 MG tablet 10 mg PO BID PRN (Reason: Pain) Qty: 21 RF: 0 Hydrocodone/Acetaminophen 7.5MG/325MG ([place] 7.5MG/325MG) tablet 1 tab PO AMHS Qty: 0 RF: 0 SIMVASTATIN (ZOCOR) 20 MG tablet 10 mg PO QPM Qty: 0 RF: 0 CHOLECALCIFEROL (VITAMIN D3) 1,000 UNIT capsule 1,000 unit PO QPM Qty: 0 RF: 0 METOPROLOL TARTRATE (LOPRESSOR) 25 MG tablet 25 mg PO BID 30 Days Qty: 0 RF: 2 IPRATROPIUM-ALBUTEROL (COMBIVENT RESPIMAT) 1 AER AER 1 puff Inhalation QID PRN (Reason: Shortness of Breath) Qty: 0 RF: 0 Stand-Alone Forms: [facility] Discharge Orders: Discharge Order (Routine); Ordered 04/04/19 Ordered By: Tali Rodriguez Admission Data Admit Date/Time: 04/03/19 08:52 Attending Provider: Tali Rodriguez Admit Provider: Tali Rodriguez Primary Care Provider: Kimmy Han Service: Telemetry
[2019-04-03] MEDS: OXYCODONE/ACETAMINOPHEN 5mg/325mg TAB PO PRN ×2 (16:01→21:29)
[2019-04-03] MEDS: METOPROLOL TARTRATE 25 MG TAB PO SCH (20:41)
[2019-04-03] MEDS ORDERED: SIMVASTATIN 10 MG TAB PO SCH (21:00)
[2019-04-03] MEDS ORDERED: CHOLECALCIFEROL 1,000 UNITS TAB PO SCH (21:00)
[2019-04-03] MEDS ORDERED: HYDROCODONE/ACETAMINOPHEN 7.5/325MG TAB PO SCH (21:00)
[2019-04-04] MEDS: ACETAMINOPHEN 325 MG TAB PO PRN (03:06)
[2019-04-04] MEDS: OXYCODONE/ACETAMINOPHEN 5mg/325mg TAB PO PRN (03:39)
[2019-04-04] MEDS ORDERED: CLINDAMYCIN 600 MG/54 ML BAG IV SCH (06:00)
--- NOTE | 2019-04-04 07:31 | XRay Report ---
TWO VIEW CHEST CLINICAL HISTORY: Status post pacemaker implantation. FINDINGS: PA and lateral chest radiographs are compared to study dated 05/08/2013 and correlated with chest CT dated 02/20/2019. A 2-lead cardiac pacemaker has been placed. Leads project over the right at rial appendage and the right ventricle. The heart is top normal for projection noting atherosclerotic calcification of the thoracic aorta. The pulmonary vasculature is noncongested. Enlargement of the c entral pulmonary arteries suggests pulmonary artery hypertension. Emphysema and chronic interstitial thickening are similar to previous. Foci of linear scarring/atelectasis are seen bilaterally. No airs pace consolidation or pleural effusion is identified. There is no pneumothorax. The skeletal structur es are osteopenic. The bony thorax appears intact. IMPRESSION: 1. A 2-lead cardiac pacemaker has been placed as detailed above. No pneumothorax is identified. 2. There is no radiographic evidence of congestive failure. 3. Emphysematous change is noted. Electronically signed by: Richie Freire M.D. 04/04/2019 7:30 AM
[2019-04-04] MEDS: METOPROLOL TARTRATE 25 MG TAB PO SCH (07:33)
--- NOTE | 2019-04-11 01:13 | Operative Report ---
DATE OF OPERATION: 04/03/2019 PREOPERATIVE DIAGNOSIS: Tachybrady syndrome. POSTOPERATIVE DIAGNOSIS: Tachybrady syndrome. PROCEDURE: Dual chamber responsive permanent pacemaker under fluoroscopic guidance. SURGEON: Tali Rodriguez DO. LAV CREWMAN: None. ANESTHESIA: Monitored conscious sedation administered under my supervision by Laly Nieto. Start time 8:25 end time 9:11. Total of 4 mg of Versed, 100 mcg of fentanyl. INTRAVENOUS FLUIDS: 64 mL. ANTIBIOTICS: 600 mg of clindamycin. BLOOD LOSS: 15 mL. URINE OUTPUT: Not applicable. SPECIMENS: None. FINDINGS: See below. DRAINS: None. INDICATIONS: This is a 69-year-old gentleman with past medical history of paroxysmal atrial tachycardia, near syncope, carotid artery stenosis bilaterally, hypertension, hyperlipidemia, thrombocytopenia, hepatitis C, tobacco use, PTSD, history of skin cancer. He has had evidence of tachybrady syndrome and was recommended a dual chamber pacemaker. CONSENT: Consent was obtained prior to the patient going into electrophysiology lab. The patient was informed risk, benefits and alternative of procedure. Risks include but not limited to sudden cardiac , cardiac arrhythmia, cerebrovascular accident, myocardial infarction, injury to the blood vessels, chamber of the heart, lung, bleeding, and infection. The patient understood these risks and agreed to the procedure as planned. Informed consent obtained. DESCRIPTION OF PROCEDURE: The patient was brought into the electrophysiology lab in fasting state. He was connected to continuous superintendent local. A timeout was performed to ensure patient identity and procedure correctly. The patient was prepped and draped over the left infraclavicular space in normal surgical standard fashion. Monitored conscious sedation was given throughout the procedure for patient's comfort level. [place] precautions were maintained throughout the procedure. 10 mL of 1% lidocaine-bupivacaine mixture was given in the left deltopectoral groove. Incision was made in left deltopectoral groove. Blunt dissection performed down to identify the cephalic vein. Cephalic vein was identified and isolated using 0 silk ties. The vein was nicked with an 11 blade and a guidewire was inserted without any resistance. An 8-[place] sheath was inserted over the guidewire without any resistance. The dilator was removed and a second guidewire was inserted through the 8-[place] sheath to allow for retained venous access. Sheath was removed, flushed and dilator reinserted over and then was reinserted along the guidewire. The guidewire and dilator removed. Then the right ventricular lead was advanced into right ventricular apex and under fluoroscopic guidance was advanced into the right ventricle under fluoroscopic guidance and advanced into and positioned into right ventricular apex. There was adequate pacing and sensing thresholds and no diaphragmatic stimulation at high output pacing. The 8-[place] sheath was peeled away and lead was fixated to pectoralis muscle using 0 silk suture. A second 8-[place] sheath was reinserted over the retained guidewire. The guidewire and dilator removed. The right atrial lead was then advanced into right atrium and positioned into atrial appendage under fluoroscopic guidance. There was adequate pacing and sensing thresholds and no diaphragmatic stimulation at high output pacing. The 8-[place] sheath was peeled away and lead was fixated pectoralis muscle using 0 silk suture. A pacemaker pocket was created using blunt dissection of the pectoralis muscle within the pectoral fascia. The pocket was flushed with copious amounts of bacitracin saline wash and inspected for hemostasis. The pulse generator was then attached to leads, making sure that the pins were in appropriate position, passed set screw and set screws were all tightened. Pulse generator was then placed in the pocket, making sure that the leads were lying flat beneath the device. A stay stitch using 0 silk suture was used to secure the pectoralis muscle. The incision was then closed in 3-layer fashion with 2-0 Vicryl interrupted suture followed by 3-0 Vicryl interrupted suture followed by 4-0 Monocryl running stitch. Dermabond was applied. INTRAOPERATIVE TESTIN. Right atrial lead: P-wave is 4.1 millivolts, impedance 532 ohms, threshold 0.8 volts at 0.7 milliamps. 2. Right ventricular lead: R wave is 18 millivolts, impedance 456 ohms, threshold 0.4 volts at 0.6 milliamps. FINAL PARAMETERS: 1. Right atrial lead: P waves 4.6 millivolts, impedance 570 ohms, threshold 0.5 volts at 0.4 milliseconds. 2. Right ventricular lead: R-wave 20 millivolts, impedance 931 ohms, threshold 0.5 volts at 0.4 milliseconds. FINAL PARAMETERS: MVP-R 60/130, right atrial amplitude 3.5 volts, pulse width 0.4 milliseconds, sensitivity 0.3 millivolts. Right ventricular amplitude 3.5 volts, pulse width 0.4 milliseconds, sensitivity 1.2 millivolts. IMPRESSION: Successful implantation of dual chamber rate responsive permanent pacemaker under fluoroscopic guidance secondary to tachybrady syndrome. PLAN: Monitor patient overnight, 12-lead ECG, chest x-ray. He is not allowed to lift left elbow or left shoulder for 1 month. He cannot lift more than 10 pounds with the left arm for 2 weeks. He can shower in 2 days, let water run over the incision, do not scrub it. He should follow up in our [facility] in 1 week's time for device and wound check. I attest to the content of the Intraoperative Record and any orders documented therein. Any exception s are noted below.
== END 2019-04-04 10:20 | disposition home or self-care (01) ==
LOC: ASU 06:10 → 2S 06:10

== ENCOUNTER 2022-10-17 08:30 | Inpatient (IN) ==
[2022-10-17] MEDS ORDERED: SODIUM CHLORIDE 0.9% 500 ML IV STA (08:39)
[2022-10-17] MEDS ORDERED: ONDANSETRON INJ 2 MG/ML 2 ML VIAL IV STA (08:39)
[2022-10-17] MEDS ORDERED: MoRPHine SULFATE 4 MG/ML 1 ML CARP\\VIAL IV STA (08:39)
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
[2022-10-17] MEDS ORDERED: methylPREDNISolone 125 MG/2 ML VIAL IV STA (08:58)
[2022-10-17] MEDS ORDERED: ALBUT/IPRATROP 3MG/0.5MG NEB 3 ML VIAL NEB STA (08:58)
[2022-10-17 09:01] LABS: Base Excess VBG -3.6 mEq/L; HCO3 VBG 20 mmol/L; Oxygen Saturation VBG 72.2 %; PCO2 VBG 33 mmHg (38-50); PO2 VBG 42 mmHg
[2022-10-17 09:14] LABS: INR 1.2 (0.9-1.1); Partial Thromboplastin Ratio 0.8; Partial Thromboplastin Time 23.3 Seconds (21.0-31.0); Prothrombin Time 12.6 Seconds (9.0-12.0)
[2022-10-17 09:21] LABS: Alanine Aminotransferase 15 U/L (7-52); Albumin Globulin Ratio 1.4 (0.9-2); Albumin Level 4.1 gm/dl (3.4-5.0); Alkaline Phosphatase 50 U/L (34-104); Anion Gap 13 (3-11); Aspartate Aminotransferase 57 U/L (13-39); BUN Creatinine Ratio 23.7 (10-20); Bilirubin,Total 0.9 mg/dl (0.2-1.0); Blood Urea Nitrogen 31 mg/dl (6-23); Calcium 9.2 mg/dl (8.5-10.1); Carbon Dioxide 19 mmol/L (21-32); Chloride 102 mmol/L (98-107); Est GFR (African American) 62.2 ml/min; Est GFR (Non-African American) 53.6 ml/min; Globulin 2.9 gm/dl (2.5-4.0); Glucose 148 mg/dl (70-99(Fasting)); Potassium 4.4 mmol/L (3.5-5.1); Sodium 134 mmol/L (136-145)
[2022-10-17] MEDS ORDERED: OPTIRAY 350 100ml IV ONE (09:22)
--- NOTE | 2022-10-17 09:36 | XRay Report ---
XR chest 1V portable HISTORY: 72 years-old Male R sided CP, recent rib fractures acute chest pain COMPARISON: Chest CT of same day TECHNIQUE: AP view of the chest FINDINGS: Cardiac megaly with left subclavian pacer. Pulmonary emphysema. Trace pleural effusions with mild dep endent bibasilar consolidation. Degenerative changes of the shoulders and spine. Subtle acute nondisp laced right-sided rib fractures are better seen on the comparison chest CT. Right shoulder rotator cu ff calcific tendinosis. IMPRESSION: 1. Stable exam compared to the chest CT obtained 24 hours earlier. 2. Subtle acute right-sided rib fractures are better seen on the comparison chest CT. No pneumothorax . ACT 112: Negative or not required by law. The above report was generated using voice recognition software. It may contain grammatical, syntax o r spelling errors. Electronically signed by: Michael Boateng M.D. 10/17/2022 9:35 AM
[2022-10-17 09:41] LABS: Hematocrit (blood only) 36.3 % (40.1-51.0); Hemoglobin 11.5 g/dl (14.0-18.0); Mean Corpuscular Hgb Conc 31.7 g/dL (32.0-36.0); Mean Corpuscular Volume 88.5 fL (80.0-100.0); Nucleated RBC # (auto) 0.05 K/uL (0-0); Nucleated RBC % (auto) 0.1 %; Platelet Count 43 K/uL (130-400); RDW Coefficient of Variation 21.2 % (11.5-14.5); RDW Standard Deviation 66.8 fL (36.4-46.3); White Blood Count 48.19 K/ul (4.8-10.8)
[2022-10-17 09:43] LABS: ALC (manual) 1.45 K/uL (1.2-3.4); ANC (manual) 27.47 K/uL (1.4-6.5); Hypochromasia Present; Lymphocytes # (manual) 1.45 K/uL (1.2-3.4); Lymphocytes % (manual) 3 %; Monocytes # (manual) 18.79 K/uL (0.24-0.82); Monocytes % (manual) 39 %; Neutrophils # (manual) 27.47 K/uL (1.4-6.5); Neutrophils % (manual) 57 %; Platelet Estimate Decreased (Normal); Polychromasia 1+; Toxic Vacuolation 1+
--- NOTE | 2022-10-17 10:11 | CT Scan Report ---
CT CHEST WITH IV CONTRAST; ABDOMEN AND PELVIS CT WITH IV CONTRAST CT DOSE: 532.01 mGy.cm HISTORY: Acute chest and abdominal trauma with right-sided rib fractures. trauma, hypoxia TECHNIQUE: Multiaxial CT images of the chest, abdomen and pelvis were performed following the IV admi nistration of 90 cc of Optiray, A dose lowering technique was utilized adhering to the principles of ALARA. COMPARISON STUDY: Chest CT October 16, 2022, CT abdomen and pelvis 02/01/2022. FINDINGS: CHEST CT: Unremarkable thyroid. Left subclavian pacer. Moderate cardiomegaly without pericardial effusion. Exte nsive coronary artery calcifications. Atherosclerosis of the aorta without aneurysm. There is patency of the imaged great vessels. The opacified pulmonary artery is unremarkable. No lymphadenopathy. Tra ce pleural effusions with mild dependent bibasilar atelectasis. Respiratory motion artifact limits ev aluation of the lungs. Moderate emphysema. Mild tracheobronchial secretions. Unremarkable soft tissue s. Acute nondisplaced fracture of the posterior right 10th rib again noted with acute minimally displ aced fracture of the posterior right 11th rib. 25% superior endplate compression of the T7 vertebral body without retropulsion is chronic. CT ABDOMEN/PELVIS: No pneumatosis or pneumoperitoneum. The spleen measures the upper limits of normal at 13 cm. Unremark able pancreas and adrenal glands. Vicarious excretion of contrast in the gallbladder. There are a few scattered subcentimeter hypodensities of the liver which too small to characterize, likely benign. P atent portal vein. There are a few right-sided renal cysts again noted. No hydronephrosis. Contrast n oted within the urinary bladder lumen. 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 High-grade stenosis of the left common iliac artery is 319. N o lymphadenopathy identified. No bowel obstruction or bowel wall thickening. Moderate colonic fecal retention. Normal appendix. Unr emarkable soft tissues. No acute fracture identified. ORIF changes of the left proximal femur. IMPRESSION: 1. Stable exam from the chest CT obtained 24 hours earlier. 2. Acute fractures of the posterior right 10th and 11th ribs are redemonstrated without pneumothorax. 3. Trace pleural effusions with mild bibasilar atelectasis. 4. Pulmonary emphysema. 5. No acute posttraumatic intra-abdominal or intrapelvic abnormality. ACT 112: Negative or not required by law. The above report was generated using voice recognition software. It may contain grammatical, syntax o r spelling errors. Electronically signed by: Michael Boateng M.D. 10/17/2022 10:10 AM
--- NOTE | 2022-10-17 11:01 | Electrocardiogram Report ---
Test Reason : Blood Pressure : / mmHG Vent. Rate : 109 BPM Atrial Rate : 109 BPM P-R Int : 140 ms QRS Dur : 080 ms QT Int : 344 ms P-R-T Axes : 034 -28 -21 degrees QTc Int : 463 ms Poor data quality, interpretation may be adversely affected Sinus tachycardia with Premature atrial complexes RSR' or QR pattern in V1 suggests right ventricular conduction delay Possible Inferior infarct , age undetermined with inferior T wave inversion Abnormal ECG When compared with ECG of 03-APR-2019 09:46, Significant changes have occurred Confirmed by Lio Olivarez ([id number]) on 10/17/2022 11:01:35 AM Referred By: REFERRED SELF Confirmed By:Lio Olivarez
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
[2022-10-17] MEDS ORDERED: POLYETHYLENE (MIRALAX) 17 GM PACK PO PRN (13:06)
[2022-10-17] MEDS ORDERED: LACTATED RINGER'S 1,000 ML IV SCH (13:06)
[2022-10-17] MEDS ORDERED: ALBUTEROL 0.083% NEBU SOLN 3 ML VIAL NEB PRN (13:06)
[2022-10-17] MEDS ORDERED: MoRPHine SULFATE 4 MG/ML 1 ML CARP\\VIAL IV PRN (13:06)
[2022-10-17] MEDS ORDERED: ONDANSETRON INJ 2 MG/ML 2 ML VIAL IV PRN (13:06)
[2022-10-17] MEDS: ACETAMINOPHEN 500 MG TAB PO SCH ×2 (14:24→21:07)
[2022-10-17] MEDS: LIDOCAINE 5% 1 PATCH TD SCH (14:34)
[2022-10-17] MEDS: cefTRIAXone SODIUM 2,000 MG in DEXTROSE 5% 50 ML IV SCH (14:34)
[2022-10-17] MEDS: METOPROLOL TARTRATE 50 MG TAB PO SCH ×2 (14:34→21:08)
[2022-10-17] MEDS: ALBUT/IPRATROP 3MG/0.5MG NEB 3 ML VIAL NEB SCH ×2 (15:02→19:57)
[2022-10-17] MEDS: MoRPHine SULFATE 4 MG/ML 1 ML CARP\\VIAL IV PRN (16:07)
[2022-10-17] MEDS: oxyCODONE HCL IR 5 MG TAB (IMMEDIATE RELEASE) PO PRN (19:15)
[2022-10-17] MEDS: SODIUM CHLOR 7% 4 ML NEB NEB SCH (20:05)
[2022-10-17 20:27] LABS: iSTAT Allen Test Pass; iSTAT Art Bld Gas pCO2 Correct 30 mmHg (35-46); iSTAT Art Bld Gas pH Corrected 7.428 (7.35-7.45); iSTAT Arterial Blood Gas HCO3 20 meg/L (19-24); iSTAT Arterial Blood Gas pCO2 31 mmHg (35-46); iSTAT Arterial Blood Gas pH 7.42 (7.35-7.45); iSTAT Arterial Blood Gas pO2 55 mmHg (80-95); iSTAT Arterial Blood Gas pO2 C 52; iSTAT Carbon Dioxide 21 mmol/L (24-31); iSTAT Hematocrit 34 % (42-52); iSTAT Hemoglobin 11.6 g/dl (14.0-18.0); iSTAT Potassium 4.6 mmol/L (3.3-5.0); iSTAT Site R Radial; iSTAT Sodium 135 mmol/L (135-144)
[2022-10-17] MEDS ORDERED: SIMVASTATIN 10 MG TAB PO SCH (21:00)
[2022-10-17] MEDS: CYCLOBENZAPRINE HCL 10 MG TAB PO SCH (21:07)
[2022-10-17] MEDS: dilTIAZem HCL 30 MG TAB PO SCH (21:08)
[2022-10-18] MEDS ORDERED: Heparin IV Adult Wt-Based Standard WITH Bolus Protocol IV SCH (00:45)
[2022-10-18] MEDS ORDERED: HEPARIN SOD (PORCINE) 1000 UNIT/ML IV ONE (00:54)
[2022-10-18] MEDS: oxyCODONE HCL IR 5 MG TAB (IMMEDIATE RELEASE) PO PRN (01:00)
[2022-10-18] MEDS ORDERED: HEPARIN SODIUM/DEXTROSE 25,000 UNITS/500 ML BAG IV SCH (01:00)
[2022-10-18 01:21] LABS: Partial Thromboplastin Ratio 1.2; Partial Thromboplastin Time 32.2 Seconds (21.0-31.0)
[2022-10-18 04:15] LABS: Calcium 8.6 mg/dl (8.5-10.1); Potassium 4.2 mmol/L (3.5-5.1)
[2022-10-18 04:21] LABS: BUN Creatinine Ratio 33.6 (10-20); Creatinine Clr Calc Pharmacy 41.8 ml/min; Est GFR (African American) 53.2 ml/min; Est GFR (Non-African American) 45.9 ml/min
[2022-10-18 05:00] LABS: Basophils # (auto) 0.03 K/uL (0-0.2); Basophils % (auto) 0.1 %; Dohle Bodies 2+; Giant Platelets 1+; Hematocrit (blood only) 32.1 % (40.1-51.0); Hemoglobin 10.2 g/dl (14.0-18.0); Immature Granulocytes # (auto) 0.29 K/uL (0.00-0.02); Immature Granulocytes % (auto) 1.2 %; Lymphocytes # (auto) 0.82 K/uL (1.2-3.4); Lymphocytes % (auto) 3.3 %; Mean Corpuscular Hemoglobin 28.2 pg (25.0-34.0); Mean Corpuscular Hgb Conc 31.8 g/dL (32.0-36.0); Mean Corpuscular Volume 88.7 fL (80.0-100.0); Monocytes # (auto) 8.25 K/uL (0.24-0.82); Monocytes % (auto) 33.5 %; Neutrophils # (auto) 15.23 K/uL (1.4-6.5); Neutrophils % (auto) 61.9 %; Nucleated RBC # (auto) 0.16 K/uL (0-0); Nucleated RBC % (auto) 0.6 %; Platelet Count 25 K/uL (130-400); Platelet Estimate Signific. Decreased (Normal); Polychromasia 1+; RDW Coefficient of Variation 20.5 % (11.5-14.5); Red Blood Count 3.62 M/uL (4.63-6.08); Toxic Vacuolation 1+; White Blood Count 24.62 K/ul (4.8-10.8)
[2022-10-18] MEDS: ACETAMINOPHEN 500 MG TAB PO SCH ×3 (05:28→20:56)
[2022-10-18] MEDS: SODIUM CHLOR 7% 4 ML NEB NEB SCH ×2 (06:48→18:58)
[2022-10-18] MEDS: ALBUT/IPRATROP 3MG/0.5MG NEB 3 ML VIAL NEB SCH ×4 (06:49→18:58)
[2022-10-18 07:25] LABS: Hypogranular Neutrophils 2+
[2022-10-18 07:33] LABS: Hypogranular Neutrophils 2+
[2022-10-18 07:33] LABS: Partial Thromboplastin Ratio 1.7
[2022-10-18 07:35] LABS: Partial Thromboplastin Time 47.2 Seconds (21.0-31.0)
[2022-10-18] MEDS: CYCLOBENZAPRINE HCL 10 MG TAB PO SCH ×2 (07:55→20:56)
[2022-10-18] MEDS: dilTIAZem HCL 30 MG TAB PO SCH ×2 (07:55→20:56)
[2022-10-18] MEDS: allopurinoL 300 MG TAB PO SCH (07:56)
[2022-10-18] MEDS: PANTOprazole 40 MG TAB PO SCH (07:56)
[2022-10-18] MEDS: LIDOCAINE 5% 1 PATCH TD SCH (07:56)
[2022-10-18] MEDS: METOPROLOL TARTRATE 50 MG TAB PO SCH ×2 (07:56→20:56)
[2022-10-18] MEDS: MoRPHine SULFATE 4 MG/ML 1 ML CARP\\VIAL IV PRN ×3 (07:57→23:37)
--- NOTE | 2022-10-18 08:24 | XRay Report ---
XR chest 1V portable CLINICAL HISTORY: Hypoxia TECHNIQUE: Single frontal radiograph of the chest was obtained. Comparison: Comparison is made to chest radiograph 10/17/[address] chest 10/17/2029 FINDINGS: Dual lead pacemaker is seen. Calcified aortic knob is seen. The lungs are clear. No evidence of pleur al effusion or pneumothorax. Right rib fractures are better seen on CT. IMPRESSION: No acute chest disease. ACT 112: Negative or not required by law. Electronically signed by: Kvng Delatorre M.D. 10/18/2022 8:22 AM
[2022-10-18] MEDS: ATORVASTATIN 40 MG TAB PO SCH (08:43)
[2022-10-18 08:44] LABS: Partial Thromboplastin Ratio 1.2
[2022-10-18] MEDS ORDERED: ASPIRIN 81 MG CHEW PO SCH (09:00)
--- NOTE | 2022-10-18 09:12 | Ultrasound Report ---
US venous doppler LE BI CLINICAL HISTORY: Rule out DVT TECHNIQUE: Right lower extremity real-time compression venous ultrasound with Color Doppler imaging. Utilizing real-time ultrasonic imaging multiple real time high-resolution ultrasonic images with comp ression and noncompression maneuvers of the deep venous system in addition to color doppler imaging w ere performed from the common femoral vein through the proximal calf veins. COMPARISON: None available at the time of this dictation. FINDINGS/IMPRESSION: Currently there is normal compressibility of the deep venous system from the common femoral vein thro ugh the proximal calf veins. No superficial venous thrombosis is identified. ACT 112: Negative or not required by law. Electronically signed by: Kvng Delatorre M.D. 10/18/2022 9:11 AM
[2022-10-18] MEDS: oxyCODONE HCL IR 5 MG TAB (IMMEDIATE RELEASE) PO SCH ×3 (09:50→20:57)
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
--- NOTE | 2022-10-18 11:29 | Communication Note ---
Date of Service: October 18, 2022 With Mr Ap's permission, I called and updated Pt's spouse , Nishi, by phone.
--- NOTE | 2022-10-18 13:21 | Hospitalist Progress Note ---
Date of Service October 18, 2022 Assessment & Plan (1) Hypoxia: (2) Closed rib fracture: Plan: Closed Right Rib fractures Patient is 72 y/o M with PMH hepatitis C, PAD, AAA, COPD, tachybradycardia syndrome s/p pacemaker, HTN, dyslipidemia, recently diagnosed B-cell lymphoma presented to ER with complaint of shortness of breath. 10/16/21 In ER for fall and rightsided rib pain. At that time CT chest with "nondisplaced fractures of the right posterior ninth and 10th ribs. No pneumothorax is seen,bibasilar atelectasis, trace right contusion cannot be entirely excluded". CT head at that time was without intracranial abnormality noted. Overnight developed increased pain and increased SOB In ER patient noted to be tachypneic, pulse ox in the 70s and patient was placed on nonrebreather Patient's respiratory status improved on nonrebreather CT chest and abdomen pelvis: 1. Stable exam from the chest CT obtained 24 hours earlier. 2. Acute fractures of the posterior right 10th and 11th ribs are redemonstrated without pneumothorax. 3. Trace pleural effusions with mild bibasilar atelectasis. 4. Pulmonary emphysema. 5. No acute posttraumatic intra- abdominal or intrapelvic abnormality. In ER given morphine with improvement of pain Discussed with radiology regarding CT chest with contrast study on admission. Major pulmonary vessels were opacified with contrast during the scan; no PE was seen. Plan; Pain control with scheduled Tylenol, oxycodone and morphine. Incentive spirometry Duo nebs, hypertonic saline for pulmonary toileting. Supplemental oxygen as needed to maintain saturation above 90% (3) NSTEMI (non-ST elevated myocardial infarction): Plan: EKG on admission showed T wave inversion in inferior lateral leads. High-sensitivity troponin elevated to 11K; down trended to 8K. Echocardiogram shows a small size inferior wall motion abnormality with hypokinesis of the segment which is new from his echo from 2 weeks ago. No complaint of chest pain. Heparin started overnight; discontinued as patient's platelets are 25,000. No aspirin due to thrombocytopenia. Cardiology on board; recommend to continue metoprolol and Cardizem. Lipitor started. (4) Thrombocytopenia: (5) B-cell lymphoma: Plan: Leukocytosis Recent diagnosis B-cell lymphoma His leukocytosis down trended from 48,000-24,000. Blood culture on admission negative. Chest x-ray does not show any infiltrate. Continue on empiric antibiotic for now;DC if blood culture continues to be negative History of known ITP; previously on IVIG. Platelets 25,000 today. Continue to monitor. Oncology consulted; we appreciate recs (6) Tachy-boris syndrome: Plan: S/p pacemaker On Cardizem; rhythm control for PSVT. (7) HTN (hypertension): Plan: Stable Continue diltiazem, metoprolol tartrate (8) COPD (chronic obstructive pulmonary disease): Plan: Albuterol neb as needed (9) Dyslipidemia: Plan: Started on Lipitor. DVT Prophylaxis SCDs DNR/DNI as per discussion with pt Admission and Anticipated Discharge Date Admission Date: October 17, 2022 Subjective Patient seen and examined at bedside. Patient complains of rib fracture pain; denies any substernal pain or shortness of breath. He was placed on BiPAP due to increased work of breathing last night. High sensitive troponin was found to be markedly elevated; was initially started on heparin drip which was discontinued later. Discussed with radiology regarding CT chest with contrast study yesterday. Major pulmonary vessels were identified during the scan; no PE was seen. Review of Systems Review of Systems: All systems reviewed & are unremarkable except as noted in Subjective Physical Exam Physical Exam: General; he is alert, oriented x3; in distress due to pain Chest wall; tenderness present in right ninth and 10th rib Respiratorybilateral vesicular breath sound; decreased breath sound at bases CVSS1-S2 heard no murmur Abdomensoft nontender MSKno edema Skinno rash or bruises Neurogrossly intact Results & Data Results & Data ([facility]) Vital Signs (Past 12 Hours) Vital Signs Temp Pulse Resp BP Pulse Ox O2 Del Method O2 Flow Rate 10/18/22 12:00 36.6 C 88 18 118/75 91 Nasal Cannula 10/18/22 11:00 36.7 C 86 16 116/67 96 Nasal Cannula 6 10/18/22 10:57 86 19 94 Nasal Cannula 6 10/18/22 08:00 Nasal Cannula 6 10/18/22 06:49 83 20 99 High Flow Nasal Cannula 35 10/18/22 06:00 36.8 C 81 18 127/80 97 Room Air 10/18/22 03:19 74 16 High Flow Nasal Cannula 35 10/18/22 02:51 36.5 C 73 18 133/83 100 High Flow Nasal Cannula FiO2 10/18/22 12:00 10/18/22 11:00 10/18/22 10:57 10/18/22 08:00 10/18/22 06:49 75 10/18/22 06:00 10/18/22 03:19 95 10/18/22 02:51 Laboratory Results Laboratory Results WBC 24.62 K/ul (4.8-10.8) H 10/18/22 03:53 RBC 3.62 M/uL (4.63-6.08) L 10/18/22 03:53 Hgb 10.2 g/dl (14.0-18.0) L 10/18/22 03:53 POC Hgb 11.6 g/dl (14.0-18.0) L 10/17/22 20:13 Hct 32.1 % (40.1-51.0) L 10/18/22 03:53 POC Hct 34 % (42-52) L 10/17/22 20:13 MCV 88.7 fL (80.0-100.0) 10/18/22 03:53 MCH 28.2 pg (25.0-34.0) 10/18/22 03:53 MCHC 31.8 g/dL (32.0-36.0) L 10/18/22 03:53 RDW Std Deviation 64.0 fL (36.4-46.3) H 10/18/22 03:53 RDW Coeff of Efren 20.5 % (11.5-14.5) H 10/18/22 03:53 Plt Count 25 K/uL (130-400) L* 10/18/22 03:53 Immature Gran % (Auto) 1.2 % 10/18/22 03:53 Neut % (Auto) 61.9 % 10/18/22 03:53 Lymph % (Auto) 3.3 % 10/18/22 03:53 [place] % (Auto) 33.5 % 10/18/22 03:53 Eos % (Auto) 0.0 % 10/18/22 03:53 Baso % (Auto) 0.1 % 10/18/22 03:53 Neut # (Auto) 15.23 K/uL (1.4-6.5) H 10/18/22 03:53 Lymph # (Auto) 0.82 K/uL (1.2-3.4) L 10/18/22 03:53 [place] # (Auto) 8.25 K/uL (0.24-0.82) H 10/18/22 03:53 Eos # (Auto) 0.00 K/uL (0-0.50) 10/18/22 03:53 Baso # (Auto) 0.03 K/uL (0-0.2) 10/18/22 03:53 Immature Gran # (Auto) 0.29 K/uL (0.00-0.02) H 10/18/22 03:53 Absolute Nucleated RBC 0.16 K/uL (0-0) H 10/18/22 03:53 Nucleated RBC % (auto) 0.6 % 10/18/22 03:53 Neutrophils % (Manual) 57 % 10/17/22 08:50 Lymphocytes % (Manual) 3 % 10/17/22 08:50 Monocytes % (Manual) 39 % 10/17/22 08:50 Neutrophils # (Manual) 27.47 K/uL (1.4-6.5) H 10/17/22 08:50 Total Absolute Neuts 27.47 K/uL (1.4-6.5) H 10/17/22 08:50 Lymphocytes # (Manual) 1.45 K/uL (1.2-3.4) 10/17/22 08:50 Total Abs Lymphocytes 1.45 K/uL (1.2-3.4) 10/17/22 08:50 Monocytes # (Manual) 18.79 K/uL (0.24-0.82) H 10/17/22 08:50 Hypogranular Neuts 2+ 10/18/22 03:53 Toxic Vacuolation 1+ 10/18/22 03:53 Dohle Bodies 2+ 10/18/22 03:53 Platelet Estimate Signific. Decreased (Normal) L 10/18/22 03:53 Giant Platelets 1+ 10/18/22 03:53 Polychromasia 1+ 10/18/22 03:53 Hypochromasia Present 10/17/22 08:50 Peripher Smr Path Cons 10/17/22 08:50 PT 12.6 Seconds (9.0-12.0) H 10/17/22 08:50 INR 1.2 (0.9-1.1) H 10/17/22 08:50 APTT 33.0 Seconds (21.0-31.0) H 10/18/22 08:04 PTT Ratio 1.2 10/18/22 08:04 Sample Site R Radial 10/17/22 20:13 POC pH 7.42 (7.35-7.45) 10/17/22 20:13 POC pCO2 31 mmHg (35-46) L 10/17/22 20:13 POC pO2 55 mmHg (80-95) L 10/17/22 20:13 POC HCO3 20 devon/L (19-24) 10/17/22 20:13 POC Total CO2 21 mmol/L (24-31) L 10/17/22 20:13 POC Base Excess -4.0 devon/L (-9-1.8) 10/17/22 20:13 ABG pH (Temp Correct) 7.428 (7.35-7.45) 10/17/22 20:13 ABG pCO2 (Temp Corrct 30 mmHg (35-46) L 10/17/22 20:13 POC ABG pO2 at Pt Temp 52 10/17/22 20:13 POC ABG O2 Sat 89.0 % (90-95) L 10/17/22 20:13 Devon Test Pass 10/17/22 20:13 VBG pH 7.40 (7.36-7.41) 10/17/22 08:50 VBG pCO2 33 mmHg (38-50) L 10/17/22 08:50 VBG pO2 42 mmHg 10/17/22 08:50 VBG HCO3 20 mmol/L 10/17/22 08:50 VBG O2 Saturation 72.2 % 10/17/22 08:50 VBG Base Excess -3.6 mEq/L 10/17/22 08:50 O2 Delivery Device NonRb Mask 10/17/22 20:13 POC Sodium 135 mmol/L (135-144) 10/17/22 20:13 Sodium 136 mmol/L (136-145) 10/18/22 03:53 POC Potassium 4.6 mmol/L (3.3-5.0) 10/17/22 20:13 Potassium 4.2 mmol/L (3.5-5.1) 10/18/22 03:53 Chloride 105 mmol/L (98-107) 10/18/22 03:53 Carbon Dioxide 22 mmol/L (21-32) 10/18/22 03:53 Anion Gap 9 (3-11) 10/18/22 03:53 BUN 50 mg/dl (6-23) H 10/18/22 03:53 Creatinine 1.49 mg/dl (0.6-1.4) H 10/18/22 03:53 Est Cr Clr Drug Dosing 41.8 ml/min 10/18/22 03:53 Est GFR ( Amer) 53.2 ml/min 10/18/22 03:53 Est GFR (Non-Af Amer) 45.9 ml/min 10/18/22 03:53 BUN/Creatinine Ratio 33.6 (10-20) H 10/18/22 03:53 Glucose 133 mg/dl (70-99(Fasting)) H 10/18/22 03:53 Calcium 8.6 mg/dl (8.5-10.1) 10/18/22 03:53 Total Bilirubin 0.9 mg/dl (0.2-1.0) 10/17/22 08:50 AST 57 U/L (13-39) H 10/17/22 08:50 ALT 15 U/L (7-52) 10/17/22 08:50 Alkaline Phosphatase 50 U/L (34-104) 10/17/22 08:50 Troponin I High Sens 8616.2 pg/ml (0-20) H* 10/18/22 10:07 Total Protein 7.0 gm/dl (6.0-8.3) 10/17/22 08:50 Albumin 4.1 gm/dl (3.4-5.0) 10/17/22 08:50 Globulin 2.9 gm/dl (2.5-4.0) 10/17/22 08:50 Albumin/Globulin Ratio 1.4 (0.9-2) 10/17/22 08:50 SARS-CoV-2, RNA, NAAT NEGATIVE (NEGATIVE) 10/17/[address] 10/17/22 08:57 CT CHEST WITH IV CONTRAST; ABDOMEN AND PELVIS CT WITH IV CONTRAST CT DOSE: 532.01 mGy.cm HISTORY: Acute chest and abdominal trauma with right-sided rib fractures. trauma, hypoxia TECHNIQUE: Multiaxial CT images of the chest, abdomen and pelvis were performed following the IV administration of 90 cc of Optiray, A dose lowering technique was utilized adhering to the principles of ALARA. COMPARISON STUDY: Chest CT October 16, 2022, CT abdomen and pelvis 02/01/2022. FINDINGS: CHEST CT: Unremarkable thyroid. Left subclavian pacer. Moderate cardiomegaly without pericardial effusion. Extensive coronary artery calcifications. Atherosclerosis of the aorta without aneurysm. There is patency of the imaged great vessels. The opacified pulmonary artery is unremarkable. No lymphadenopathy. Trace pleural effusions with mild dependent bibasilar atelectasis. Respiratory motion artifact limits evaluation of the lungs. Moderate emphysema. Mild tracheobronchial secretions. Unremarkable soft tissues. Acute nondisplaced fracture of the posterior right 10th rib again noted with acute minimally displaced fracture of the posterior right 11th rib. 25% superior endplate compression of the T7 vertebral body without retropulsion is chronic. CT ABDOMEN/PELVIS: No pneumatosis or pneumoperitoneum. The spleen measures the upper limits of normal at 13 cm. Unremarkable pancreas and adrenal glands. Vicarious excretion of contrast in the gallbladder. There are a few scattered subcentimeter hypodensities of the liver which too small to characterize, likely benign. Patent portal vein. There are a few right-sided renal cysts again noted. No hydronephrosis. Contrast noted within the urinary bladder lumen. 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 High-grade stenosis of the left common iliac artery is 319. No lymphadenopathy identified. No bowel obstruction or bowel wall thickening. Moderate colonic fecal retention. Normal appendix. Unremarkable soft tissues. No acute fracture identified. ORIF changes of the left proximal femur. IMPRESSION: 1. Stable exam from the chest CT obtained 24 hours earlier. 2. Acute fractures of the posterior right 10th and 11th ribs are redemonstrated without pneumothorax. 3. Trace pleural effusions with mild bibasilar atelectasis. 4. Pulmonary emphysema. 5. No acute posttraumatic intra-abdominal or intrapelvic abnormality. ACT 112: Negative or not required by law. The above report was generated using voice recognition software. It may contain grammatical, syntax or spelling errors. Electronically signed by: Michael Boateng M.D. 10/17/2022 10:10 AM Abdomen/Pelvis CT 10/17/22 08:58 CT CHEST WITH IV CONTRAST; ABDOMEN AND PELVIS CT WITH IV CONTRAST CT DOSE: 532.01 mGy.cm HISTORY: Acute chest and abdominal trauma with right-sided rib fractures. trauma, hypoxia TECHNIQUE: Multiaxial CT images of the chest, abdomen and pelvis were performed following the IV administration of 90 cc of Optiray, A dose lowering technique was utilized adhering to the principles of ALARA. COMPARISON STUDY: Chest CT October 16, 2022, CT abdomen and pelvis 02/01/2022. FINDINGS: CHEST CT: Unremarkable thyroid. Left subclavian pacer. Moderate cardiomegaly without pericardial effusion. Extensive coronary artery calcifications. Atherosclerosis of the aorta without aneurysm. There is patency of the imaged great vessels. The opacified pulmonary artery is unremarkable. No lymphadenopathy. Trace pleural effusions with mild dependent bibasilar atelectasis. Respiratory motion artifact limits evaluation of the lungs. Moderate emphysema. Mild tracheobronchial secretions. Unremarkable soft tissues. Acute nondisplaced fracture of the posterior right 10th rib again noted with acute minimally displaced fracture of the posterior right 11th rib. 25% superior endplate compression of the T7 vertebral body without retropulsion is chronic. CT ABDOMEN/PELVIS: No pneumatosis or pneumoperitoneum. The spleen measures the upper limits of normal at 13 cm. Unremarkable pancreas and adrenal glands. Vicarious excretion of contrast in the gallbladder. There are a few scattered subcentimeter hypodensities of the liver which too small to characterize, likely benign. Patent portal vein. There are a few right-sided renal cysts again noted. No hydronephrosis. Contrast noted within the urinary bladder lumen. 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 High-grade stenosis of the left common iliac artery is 319. No lymphadenopathy identified. No bowel obstruction or bowel wall thickening. Moderate colonic fecal retention. Normal appendix. Unremarkable soft tissues. No acute fracture identified. ORIF changes of the left proximal femur. IMPRESSION: 1. Stable exam from the chest CT obtained 24 hours earlier. 2. Acute fractures of the posterior right 10th and 11th ribs are redemonstrated without pneumothorax. 3. Trace pleural effusions with mild bibasilar atelectasis. 4. Pulmonary emphysema. 5. No acute posttraumatic intra-abdominal or intrapelvic abnormality. ACT 112: Negative or not required by law. The above report was generated using voice recognition software. It may contain grammatical, syntax or spelling errors. Electronically signed by: Michael Boateng M.D. 10/17/2022 10:10 AM Venous Doppler Study 10/18/22 07:26 US venous doppler LE CLINICAL HISTORY: Rule out DVT TECHNIQUE: Right lower extremity real-time compression venous ultrasound with Color Doppler imaging. Utilizing real-time ultrasonic imaging multiple real time high-resolution ultrasonic images with compression and noncompression maneuvers of the deep venous system in addition to color doppler imaging were performed from the common femoral vein through the proximal calf veins. COMPARISON: None available at the time of this dictation. FINDINGS/IMPRESSION: Currently there is normal compressibility of the deep venous system from the common femoral vein through the proximal calf veins. No superficial venous thrombosis is identified. ACT 112: Negative or not required by law. Electronically signed by: Kvng Delatorre M.D. 10/18/2022 9:11 AM Chest X-Ray 10/18/22 07:43 XR chest 1V portable CLINICAL HISTORY: Hypoxia TECHNIQUE: Single frontal radiograph of the chest was obtained. Comparison: Comparison is made to chest radiograph 10/17/[address] chest 10/17/2029 FINDINGS: Dual lead pacemaker is seen. Calcified aortic knob is seen. The lungs are clear. No evidence of pleural effusion or pneumothorax. Right rib fractures are better seen on CT. IMPRESSION: No acute chest disease. ACT 112: Negative or not required by law. Electronically signed by: Kvng Delatorre M.D. 10/18/2022 8:22 AM
[2022-10-18] MEDS: cefTRIAXone SODIUM 2,000 MG in DEXTROSE 5% 50 ML IV SCH (13:24)
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
--- NOTE | 2022-10-18 18:18 | Electrocardiogram Report ---
Test Reason : Blood Pressure : / mmHG Vent. Rate : 075 BPM Atrial Rate : 075 BPM P-R Int : 152 ms QRS Dur : 090 ms QT Int : 440 ms P-R-T Axes : 035 -31 -30 degrees QTc Int : 491 ms Normal sinus rhythm Left axis deviation Minimal voltage criteria for LVH, may be normal variant Nonspecific T wave abnormality Prolonged QT Abnormal ECG When compared with ECG of 17-OCT-2022 08:37, Premature atrial complexes are no longer Present Criteria for Inferior infarct are no longer Present Nonspecific T wave abnormality now evident in Lateral leads Confirmed by Jeremiah Aleman ([id number]) on 10/18/2022 6:18:28 PM Referred By: REFERRED SELF Confirmed By:Fabricio Aleman
--- NOTE | 2022-10-18 20:10 | Communication Note ---
Date of Service: October 18, 2022 Last night patient was desaturating on oxy mask ABG showed po55. Placed [place] [address]. Started on iv heparin around midnight for NSTEMI.Stopped iv heparin around 6am as soon as morning labs came showing platelets 25k.Patient had baseline platelets 43k. Checked patient and has no bleeding episode and was doing fine, alert and oriented no complaints except of his right posterior lower thorax pain he was complaining earlier.Stat ptt ordered came at 47 drawn around 6:40am and 33 drawn at 8am,baseline ptt 32.Notified Am providers. Later called and and notified the incident.
[2022-10-19] MEDS: oxyCODONE HCL IR 5 MG TAB (IMMEDIATE RELEASE) PO SCH ×4 (03:18→20:16)
[2022-10-19] MEDS: ACETAMINOPHEN 500 MG TAB PO SCH ×3 (05:54→20:17)
[2022-10-19 07:09] LABS: Albumin Globulin Ratio 1.3 (0.9-2); Albumin Level 3.6 gm/dl (3.4-5.0); BUN Creatinine Ratio 43.8 (10-20); Bilirubin,Total 0.4 mg/dl (0.2-1.0); Calcium 8.7 mg/dl (8.5-10.1); Creatinine Clr Calc Pharmacy 49.4 ml/min; Est GFR (African American) 58.9 ml/min; Est GFR (Non-African American) 50.8 ml/min; Globulin 2.7 gm/dl (2.5-4.0); Potassium 4.5 mmol/L (3.5-5.1); Total Protein 6.3 gm/dl (6.0-8.3)
[2022-10-19 07:12] LABS: Hemoglobin 10.1 g/dl (14.0-18.0); Mean Corpuscular Hemoglobin 27.9 pg (25.0-34.0); Mean Corpuscular Hgb Conc 31.6 g/dL (32.0-36.0); Mean Corpuscular Volume 88.4 fL (80.0-100.0); Nucleated RBC # (auto) 0.15 K/uL (0-0); Nucleated RBC % (auto) 0.9 %; RDW Coefficient of Variation 20.6 % (11.5-14.5); RDW Standard Deviation 65.3 fL (36.4-46.3); Red Blood Count 3.62 M/uL (4.63-6.08); White Blood Count 16.55 K/ul (4.8-10.8)
[2022-10-19] MEDS: ALBUT/IPRATROP 3MG/0.5MG NEB 3 ML VIAL NEB SCH ×4 (07:12→19:49)
[2022-10-19] MEDS: SODIUM CHLOR 7% 4 ML NEB NEB SCH ×2 (07:12→19:49)
[2022-10-19 07:14] LABS: Anisocytosis Present; Basophils # (auto) 0.02 K/uL (0-0.2); Basophils % (auto) 0.1 %; Dohle Bodies 2+; Eosinophils # (auto) 0.01 K/uL (0-0.50); Eosinophils % (auto) 0.1 %; Immature Granulocytes # (auto) 0.12 K/uL (0.00-0.02); Immature Granulocytes % (auto) 0.7 %; Lymphocytes # (auto) 0.69 K/uL (1.2-3.4); Lymphocytes % (auto) 4.2 %; Monocytes # (auto) 7.35 K/uL (0.24-0.82); Monocytes % (auto) 44.4 %; Neutrophils # (auto) 8.36 K/uL (1.4-6.5); Neutrophils % (auto) 50.5 %; Polychromasia 1+
[2022-10-19] MEDS: CYCLOBENZAPRINE HCL 10 MG TAB PO SCH ×2 (07:46→20:20)
[2022-10-19] MEDS: LIDOCAINE 5% 1 PATCH TD SCH (07:47)
[2022-10-19] MEDS: METOPROLOL TARTRATE 50 MG TAB PO SCH ×2 (07:47→20:20)
[2022-10-19] MEDS: dilTIAZem HCL 30 MG TAB PO SCH ×2 (07:47→20:20)
[2022-10-19] MEDS: allopurinoL 300 MG TAB PO SCH (07:47)
[2022-10-19] MEDS: ATORVASTATIN 40 MG TAB PO SCH (07:47)
[2022-10-19] MEDS: PANTOprazole 40 MG TAB PO SCH (07:48)
--- NOTE | 2022-10-19 09:04 | Cardiology Progress Note ---
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 This complicates the use of anti-platelet therapy, and at present,and his aspirin is on hold. His acute on chronic thrombocytopenia makes him a poor candidate for PCI which would commit him to dual anti-platelet therapy. - Continue medical therapy with metoprolol, diltiazem ( which he is on for rhythm control of his PSVT) agree of transitioning him from simvastatin to atorvastatin for more intensive lipid lowering, monitor his LFTs. - Continue treatment of his pain with regards to the rib fractures. - Given his change in cardiac status, would likely be best to minimize or avoid exposure to doxorubicin given the potential for cardiac toxicity given the change in the patient's cardiac status.Will coordinate with Dr Rojas of Hematology / Oncology who is considering starting prednisone for the thro mbocytopenia. -Outpt PET CT planned for . -Would recommend delay of port placement for 4-6 weeks, agree with plan to administer chemo via PICC line in the interim. Admission and Anticipated Discharge Date Admission Date: October 17, 2022 Subjective Patient seen in follow up. He has ongoing pain with deep inspiration, but is improved compared to yesterday. No angina, however, pt has not bee out of bed yet. Telemetry reveals SR. Physical Exam Constitutional: + ill appearing Respiratory: + labored breathing ( Pain with deep inspiration) Auscultation: + diminished lung sounds ( mildly reduced breath sounds at the bases bilaterally); no crackles and no pleural rub Cardiovascular: Rate/Rhythm: regular rate Heart Sounds: + murmur (1/6 SM ) Extremities: no edema Gastrointestinal (Abdomen): normal bowel sounds, soft, nontender, no hepatosplenomegaly Neurologic: PERRL, EOMI, accommodation nl, no face palsy, no dysarthria Results & Data ([facility]) Vital Signs (Past 12 Hours) Vital Signs Temp Pulse Pulse Resp BP Pulse Ox O2 Del Method 10/19/22 07:50 Nasal Cannula 10/19/22 07:40 36.6 C 70 16 107/71 98 Nasal Cannula 10/19/22 07:16 73 20 97 Nasal Cannula 10/19/22 04:03 36.4 C L 72 18 99/62 L 92 Oxymask 10/19/22 00:24 94 Oxymask 10/19/22 00:19 36.4 C L 85 18 111/67 89 L Nasal Cannula 10/18/22 22:55 78 O2 Flow Rate 10/19/22 07:50 5 10/19/22 07:40 6 10/19/22 07:16 6 10/19/22 04:03 6 10/19/22 00:24 6 10/19/22 00:19 6 10/18/22 22:55 Laboratory Results Cardiac Enzymes 10/18/22 10/18/22 10/19/22 Range/Units 08:04 10:07 06:17 AST 56 H (13-39) U/L Troponin I High Sens 8494.2 H* D 8616.2 H* (0-20) pg/ml CBC 10/19/22 Range/Units 06:17 WBC 16.55 H (4.8-10.8) K/ul RBC 3.62 L (4.63-6.08) M/uL Hgb 10.1 L (14.0-18.0) g/dl Hct 32.0 L (40.1-51.0) % Plt Count 23 L* (130-400) K/uL Neut # (Auto) 8.36 H (1.4-6.5) K/uL Lymph # (Auto) 0.69 L (1.2-3.4) K/uL Gray # (Auto) 7.35 H (0.24-0.82) K/uL Eos # (Auto) 0.01 (0-0.50) K/uL Baso # (Auto) 0.02 (0-0.2) K/uL Comprehensive Metabolic Panel 10/19/22 Range/Units 06:17 Sodium 137 (136-145) mmol/L Potassium 4.5 (3.5-5.1) mmol/L Chloride 104 (98-107) mmol/L Carbon Dioxide 26 (21-32) mmol/L BUN 60 H (6-23) mg/dl Creatinine 1.37 (0.6-1.4) mg/dl Glucose 92 (70-99(Fasting)) mg/dl Calcium 8.7 (8.5-10.1) mg/dl AST 56 H (13-39) U/L ALT 28 (7-52) U/L Alkaline Phosphatase 42 (34-104) U/L Total Protein 6.3 (6.0-8.3) gm/dl Albumin 3.6 (3.4-5.0) gm/dl Intake and Output 10/18/22 10/19/22 10/19/22 22:59 06:59 14:59 Output Total 400 / 800 400 / 800 Balance -400 / -89.6 -400 / -89.6 Output: Urine 400 / 800 400 / 800 Other: Other Intake Source sips sips Weight 72.8 kg Weight Measurement Method Built in [facility] Diagnostic Findings EKG performed this morning and interpreted independently: SR at 71 bpm with PACs, T wave inversions consistent with inferior and lateral ischemia.
[2022-10-19 10:23] LABS: Platelet Count 23 K/uL (130-400)
--- NOTE | 2022-10-19 13:37 | Hospitalist Progress Note ---
Date of Service October 19, 2022 Assessment & Plan (1) Acute respiratory failure with hypoxia: (2) Closed rib fracture: Plan: Patient is 72 y/o M with PMH hepatitis C, PAD, AAA, COPD, tachybradycardia syndrome s/p pacemaker, HTN, dyslipidemia, recently diagnosed B-cell lymphoma presented to ER with complaint of shortness of breath. 10/16/21 In ER for fall and rightsided rib pain. At that time CT chest with "nondisplaced fractures of the right posterior ninth and 10th ribs. No pneumothorax is seen,bibasilar atelectasis, trace right contusion cannot be entirely excluded". CT head at that time was without intracranial abnormality noted. Overnight developed increased pain and increased SOB In ER patient noted to be tachypneic, pulse ox in the 70s and patient was placed on nonrebreather Patient's respiratory status improved on nonrebreather CT chest and abdomen pelvis: 1. Stable exam from the chest CT obtained 24 hours earlier. 2. Acute fractures of the posterior right 10th and 11th ribs are redemonstrated without pneumothorax. 3. Trace pleural effusions with mild bibasilar atelectasis. 4. Pulmonary emphysema. 5. No acute posttraumatic intra- abdominal or intrapelvic abnormality. In ER given morphine with improvement of pain Discussed with radiology regarding CT chest with contrast study on admission. Major pulmonary vessels were opacified with contrast during the scan; no PE was seen. Plan; Pain control with scheduled Tylenol, oxycodone and morphine. Incentive spirometry Duo nebs, hypertonic saline for pulmonary toileting. Supplemental oxygen as needed to maintain saturation above 90% (3) NSTEMI (non-ST elevated myocardial infarction): Plan: EKG on admission showed T wave inversion in inferior lateral leads. High-sensitivity troponin elevated to 11K; down trended to 8K. Echocardiogram shows a small size inferior wall motion abnormality with hypokinesis of the segment which is new from his echo from 2 weeks ago. No complaint of chest pain. Heparin started overnight; discontinued as patient's platelets are 23,000. No aspirin due to thrombocytopenia. Cardiology on board; recommend to continue metoprolol and Cardizem. Lipitor s tarted. (4) Thrombocytopenia: (5) B-cell lymphoma: Plan: Leukocytosis Recent diagnosis B-cell lymphoma His leukocytosis down trended from 48,000-24,000. Blood culture on admission negative. Chest x-ray does not show any infiltrate. Dc empiric antibiotics as cx are negative. History of known ITP; previously on IVIG. Platelets 23,000 today. Oncology consulted; patient has PET scan scheduled for PET scan on October 21. Port-a-cath placement may be post-poned due to low platelets. (6) Tachy-boris syndrome: Plan: S/p pacemaker On Cardizem; rhythm control for PSVT. (7) HTN (hypertension): Plan: Stable Continue diltiazem, metoprolol tartrate (8) COPD (chronic obstructive pulmonary disease): Plan: Albuterol neb as needed (9) Dyslipidemia: Plan: Started on Lipitor. Plan DVT Prophylaxis SCDs DNR/DNI as per discussion with pt Admission and Anticipated Discharge Date Admission Date: October 17, 2022 Subjective Patient seen and examined at bedside. He reports pain is well controlled on current regimen. Oxygen requirement downtrending; currently on 2 L of oxygen by nasal cannula. Review of Systems Review of Systems: All systems reviewed & are unremarkable except as noted in Subjective Physical Exam Physical Exam: General; he is alert, oriented x3; in distress due to pain Chest wall; tenderness present in right ninth and 10th rib Respiratorybilateral vesicular breath sound; decreased breath sound at bases CVSS1-S2 heard no murmur Abdomensoft nontender MSKno edema Skinno rash or bruises Neurogrossly intact Results & Data Results & Data ([facility]) Vital Signs (Past 12 Hours) Vital Signs Temp Pulse Resp BP Pulse Ox O2 Del Method O2 Del Method 10/19/22 12:00 Nasal Cannula 10/19/22 11:17 36.6 C 75 12 113/70 92 Nasal Cannula 10/19/22 10:16 75 18 93 Nasal Cannula 10/19/22 07:50 Nasal Cannula 10/19/22 07:40 36.6 C 70 16 107/71 98 Nasal Cannula 10/19/22 07:16 73 20 97 Nasal Cannula 10/19/22 04:03 36.4 C L 72 18 99/62 L 92 Oxymask O2 Flow Rate O2 Flow Rate 10/19/22 12:00 2 10/19/22 11:17 6 10/19/22 10:16 2 10/19/22 07:50 5 10/19/22 07:40 6 10/19/22 07:16 6 10/19/22 04:03 6 Laboratory Results Laboratory Results WBC 16.55 K/ul (4.8-10.8) H 10/19/22 06:17 RBC 3.62 M/uL (4.63-6.08) L 10/19/22 06:17 Hgb 10.1 g/dl (14.0-18.0) L 10/19/22 06:17 POC Hgb 11.6 g/dl (14.0-18.0) L 10/17/22 20:13 Hct 32.0 % (40.1-51.0) L 10/19/22 06:17 POC Hct 34 % (42-52) L 10/17/22 20:13 MCV 88.4 fL (80.0-100.0) 10/19/22 06:17 MCH 27.9 pg (25.0-34.0) 10/19/22 06:17 MCHC 31.6 g/dL (32.0-36.0) L 10/19/22 06:17 RDW Std Deviation 65.3 fL (36.4-46.3) H 10/19/22 06:17 RDW Coeff of Efren 20.6 % (11.5-14.5) H 10/19/22 06:17 Plt Count 23 K/uL (130-400) L* 10/19/22 06:17 Immature Gran % (Auto) 0.7 % 10/19/22 06:17 Neut % (Auto) 50.5 % 10/19/22 06:17 Lymph % (Auto) 4.2 % 10/19/22 06:17 [place] % (Auto) 44.4 % 10/19/22 06:17 Eos % (Auto) 0.1 % 10/19/22 06:17 Baso % (Auto) 0.1 % 10/19/22 06:17 Neut # (Auto) 8.36 K/uL (1.4-6.5) H 10/19/22 06:17 Lymph # (Auto) 0.69 K/uL (1.2-3.4) L 10/19/22 06:17 [place] # (Auto) 7.35 K/uL (0.24-0.82) H 10/19/22 06:17 Eos # (Auto) 0.01 K/uL (0-0.50) 10/19/22 06:17 Baso # (Auto) 0.02 K/uL (0-0.2) 10/19/22 06:17 Immature Gran # (Auto) 0.12 K/uL (0.00-0.02) H 10/19/22 06:17 Absolute Nucleated RBC 0.15 K/uL (0-0) H 10/19/22 06:17 Nucleated RBC % (auto) 0.9 % 10/19/22 06:17 Neutrophils % (Manual) 57 % 10/17/22 08:50 Lymphocytes % (Manual) 3 % 10/17/22 08:50 Monocytes % (Manual) 39 % 10/17/22 08:50 Neutrophils # (Manual) 27.47 K/uL (1.4-6.5) H 10/17/22 08:50 Total Absolute Neuts 27.47 K/uL (1.4-6.5) H 10/17/22 08:50 Lymphocytes # (Manual) 1.45 K/uL (1.2-3.4) 10/17/22 08:50 Total Abs Lymphocytes 1.45 K/uL (1.2-3.4) 10/17/22 08:50 Monocytes # (Manual) 18.79 K/uL (0.24-0.82) H 10/17/22 08:50 Hypogranular Neuts 2+ 10/18/22 03:53 Toxic Vacuolation 1+ 10/18/22 03:53 Dohle Bodies 2+ 10/19/22 06:17 Platelet Estimate Signific. Decreased (Normal) L 10/18/22 03:53 Giant Platelets 1+ 10/18/22 03:53 Polychromasia 1+ 10/19/22 06:17 Hypochromasia Present 10/17/22 08:50 Anisocytosis Present 10/19/22 06:17 Peripher Smr Path Cons 10/17/22 08:50 PT 12.6 Seconds (9.0-12.0) H 10/17/22 08:50 INR 1.2 (0.9-1.1) H 10/17/22 08:50 APTT 33.0 Seconds (21.0-31.0) H 10/18/22 08:04 PTT Ratio 1.2 10/18/22 08:04 Sample Site R Radial 10/17/22 20:13 POC pH 7.42 (7.35-7.45) 10/17/22 20:13 POC pCO2 31 mmHg (35-46) L 10/17/22 20:13 POC pO2 55 mmHg (80-95) L 10/17/22 20:13 POC HCO3 20 devon/L (19-24) 10/17/22 20:13 POC Total CO2 21 mmol/L (24-31) L 10/17/22 20:13 POC Base Excess -4.0 devon/L (-9-1.8) 10/17/22 20:13 ABG pH (Temp Correct) 7.428 (7.35-7.45) 10/17/22 20:13 ABG pCO2 (Temp Corrct 30 mmHg (35-46) L 10/17/22 20:13 POC ABG pO2 at Pt Temp 52 10/17/22 20:13 POC ABG O2 Sat 89.0 % (90-95) L 10/17/22 20:13 [place] Test Pass 10/17/22 20:13 VBG pH 7.40 (7.36-7.41) 10/17/22 08:50 VBG pCO2 33 mmHg (38-50) L 10/17/22 08:50 VBG pO2 42 mmHg 10/17/22 08:50 VBG HCO3 20 mmol/L 10/17/22 08:50 VBG O2 Saturation 72.2 % 10/17/22 08:50 VBG Base Excess -3.6 mEq/L 10/17/22 08:50 O2 Delivery Device NonRb Mask 10/17/22 20:13 POC Sodium 135 mmol/L (135-144) 10/17/22 20:13 Sodium 137 mmol/L (136-145) 10/19/22 06:17 POC Potassium 4.6 mmol/L (3.3-5.0) 10/17/22 20:13 Potassium 4.5 mmol/L (3.5-5.1) 10/19/22 06:17 Chloride 104 mmol/L (98-107) 10/19/22 06:17 Carbon Dioxide 26 mmol/L (21-32) 10/19/22 06:17 Anion Gap 7 (3-11) 10/19/22 06:17 BUN 60 mg/dl (6-23) H 10/19/22 06:17 Creatinine 1.37 mg/dl (0.6-1.4) 10/19/22 06:17 Est Cr Clr Drug Dosing 49.4 ml/min 10/19/22 06:17 Est GFR ( Amer) 58.9 ml/min 10/19/22 06:17 Est GFR (Non-Af Amer) 50.8 ml/min 10/19/22 06:17 BUN/Creatinine Ratio 43.8 (10-20) H 10/19/22 06:17 Glucose 92 mg/dl (70-99(Fasting)) 10/19/22 06:17 Calcium 8.7 mg/dl (8.5-10.1) 10/19/22 06:17 Total Bilirubin 0.4 mg/dl (0.2-1.0) D 10/19/22 06:17 AST 56 U/L (13-39) H 10/19/22 06:17 ALT 28 U/L (7-52) 10/19/22 06:17 Alkaline Phosphatase 42 U/L (34-104) 10/19/22 06:17 Troponin I High Sens 8616.2 pg/ml (0-20) H* 10/18/22 10:07 Total Protein 6.3 gm/dl (6.0-8.3) 10/19/22 06:17 Albumin 3.6 gm/dl (3.4-5.0) 10/19/22 06:17 Globulin 2.7 gm/dl (2.5-4.0) 10/19/22 06:17 Albumin/Globulin Ratio 1.3 (0.9-2) 10/19/22 06:17 SARS-CoV-2, RNA, NAAT NEGATIVE (NEGATIVE) 10/17/[address] 10/17/22 08:57 CT CHEST WITH IV CONTRAST; ABDOMEN AND PELVIS CT WITH IV CONTRAST CT DOSE: 532.01 mGy.cm HISTORY: Acute chest and abdominal trauma with right-sided rib fractures. trauma, hypoxia TECHNIQUE: Multiaxial CT images of the chest, abdomen and pelvis were performed following the IV administration of 90 cc of Optiray, A dose lowering technique was utilized adhering to the principles of ALARA. COMPARISON STUDY: Chest CT October 16, 2022, CT abdomen and pelvis 02/01/2022. FINDINGS: CHEST CT: Unremarkable thyroid. Left subclavian pacer. Moderate cardiomegaly without pericardial effusion. Extensive coronary artery calcifications. Atherosclerosis of the aorta without aneurysm. There is patency of the imaged great vessels. The opacified pulmonary artery is unremarkable. No lymphadenopathy. Trace pleural effusions with mild dependent bibasilar atelectasis. Respiratory motion artifact limits evaluation of the lungs. Moderate emphysema. Mild tracheobronchial secretions. Unremarkable soft tissues. Acute nondisplaced fracture of the posterior right 10th rib again noted with acute minimally displaced fracture of the posterior right 11th rib. 25% superior endplate compression of the T7 vertebral body without retropulsion is chronic. CT ABDOMEN/PELVIS: No pneumatosis or pneumoperitoneum. The spleen measures the upper limits of normal at 13 cm. Unremarkable pancreas and adrenal glands. Vicarious excretion of contrast in the gallbladder. There are a few scattered subcentimeter hypodensities of the liver which too small to characterize, likely benign. Patent portal vein. There are a few right-sided renal cysts again noted. No hydronephrosis. Contrast noted within the urinary bladder lumen. 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 High-grade stenosis of the left common iliac artery is 319. No lymphadenopathy identified. No bowel obstruction or bowel wall thickening. Moderate colonic fecal retention. Normal appendix. Unremarkable soft tissues. No acute fracture identified. ORIF changes of the left proximal femur. IMPRESSION: 1. Stable exam from the chest CT obtained 24 hours earlier. 2. Acute fractures of the posterior right 10th and 11th ribs are redemonstrated without pneumothorax. 3. Trace pleural effusions with mild bibasilar atelectasis. 4. Pulmonary emphysema. 5. No acute posttraumatic intra-abdominal or intrapelvic abnormality. ACT 112: Negative or not required by law. The above report was generated using voice recognition software. It may contain grammatical, syntax or spelling errors. Electronically signed by: Michael Boateng M.D. 10/17/2022 10:10 AM Abdomen/Pelvis CT 10/17/22 08:58 CT CHEST WITH IV CONTRAST; ABDOMEN AND PELVIS CT WITH IV CONTRAST CT DOSE: 532.01 mGy.cm HISTORY: Acute chest and abdominal trauma with right-sided rib fractures. trauma, hypoxia TECHNIQUE: Multiaxial CT images of the chest, abdomen and pelvis were performed following the IV administration of 90 cc of Optiray, A dose lowering technique was utilized adhering to the principles of ALARA. COMPARISON STUDY: Chest CT October 16, 2022, CT abdomen and pelvis 02/01/2022. FINDINGS: CHEST CT: Unremarkable thyroid. Left subclavian pacer. Moderate cardiomegaly without pericardial effusion. Extensive coronary artery calcifications. Atherosclerosis of the aorta without aneurysm. There is patency of the imaged great vessels. The opacified pulmonary artery is unremarkable. No lymphadenopathy. Trace pleural effusions with mild dependent bibasilar atelectasis. Respiratory motion artifact limits evaluation of the lungs. Moderate emphysema. Mild tracheobronchial secretions. Unremarkable soft tissues. Acute nondisplaced fracture of the posterior right 10th rib again noted with acute minimally displaced fracture of the posterior right 11th rib. 25% superior endplate compression of the T7 vertebral body without retropulsion is chronic. CT ABDOMEN/PELVIS: No pneumatosis or pneumoperitoneum. The spleen measures the upper limits of normal at 13 cm. Unremarkable pancreas and adrenal glands. Vicarious excretion of contrast in the gallbladder. There are a few scattered subcentimeter hypodensities of the liver which too small to characterize, likely benign. Patent portal vein. There are a few right-sided renal cysts again noted. No hydronephrosis. Contrast noted within the urinary bladder lumen. 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 High-grade stenosis of the left common iliac artery is 319. No lymphadenopathy identified. No bowel obstruction or bowel wall thickening. Moderate colonic fecal retention. Normal appendix. Unremarkable soft tissues. No acute fracture identified. ORIF changes of the left proximal femur. IMPRESSION: 1. Stable exam from the chest CT obtained 24 hours earlier. 2. Acute fractures of the posterior right 10th and 11th ribs are redemonstrated without pneumothorax. 3. Trace pleural effusions with mild bibasilar atelectasis. 4. Pulmonary emphysema. 5. No acute posttraumatic intra-abdominal or intrapelvic abnormality. ACT 112: Negative or not required by law. The above report was generated using voice recognition software. It may contain grammatical, syntax or spelling errors. Electronically signed by: Michael Boateng M.D. 10/17/2022 10:10 AM Venous Doppler Study 10/18/22 07:26 US venous doppler LE BI CLINICAL HISTORY: Rule out DVT TECHNIQUE: Right lower extremity real-time compression venous ultrasound with Color Doppler imaging. Utilizing real-time ultrasonic imaging multiple real time high-resolution ultrasonic images with compression and noncompression maneuvers of the deep venous system in addition to color doppler imaging were performed from the common femoral vein through the proximal calf veins. COMPARISON: None available at the time of this dictation. FINDINGS/IMPRESSION: Currently there is normal compressibility of the deep venous system from the common femoral vein through the proximal calf veins. No superficial venous thrombosis is identified. ACT 112: Negative or not required by law. Electronically signed by: Kvng Delatorre M.D. 10/18/2022 9:11 AM Chest X-Ray 10/18/22 07:43 XR chest 1V portable CLINICAL HISTORY: Hypoxia TECHNIQUE: Single frontal radiograph of the chest was obtained. Comparison: Comparison is made to chest radiograph 10/17/[address] chest 10/17/2029 FINDINGS: Dual lead pacemaker is seen. Calcified aortic knob is seen. The lungs are clear. No evidence of pleural effusion or pneumothorax. Right rib fractures are better seen on CT. IMPRESSION: No acute chest disease. ACT 112: Negative or not required by law. Electronically signed by: Kvng Delatorre M.D. 10/18/2022 8:22 AM
--- NOTE | 2022-10-19 14:32 | Electrocardiogram Report ---
Test Reason : Blood Pressure : / mmHG Vent. Rate : 071 BPM Atrial Rate : 071 BPM P-R Int : 156 ms QRS Dur : 086 ms QT Int : 448 ms P-R-T Axes : 042 -30 -46 degrees QTc Int : 486 ms Sinus rhythm with Premature atrial complexes Left axis deviation T wave abnormality, consider inferior ischemia T wave abnormality, consider anterolateral ischemia Prolonged QT Abnormal ECG When compared with ECG of 18-OCT-2022 00:47, Premature atrial complexes are now Present Confirmed by Jeremiah Aleman ([id number]) on 10/19/2022 2:31:39 PM Referred By: REFERRED SELF Confirmed By:Fabricio Aleman
[2022-10-19] MEDS: MoRPHine SULFATE 4 MG/ML 1 ML CARP\\VIAL IV PRN ×2 (17:37→21:32)
[2022-10-20] MEDS: MoRPHine SULFATE 4 MG/ML 1 ML CARP\\VIAL IV PRN ×2 (01:14→11:32)
[2022-10-20] MEDS: oxyCODONE HCL IR 5 MG TAB (IMMEDIATE RELEASE) PO SCH ×3 (02:46→14:46)
[2022-10-20 03:19] LABS: Appearance Urine Clear (Clear); Bacteria Urine Automated Negative (Negative); Bilirubin Urine Negative (Negative); Blood Urine Negative (Negative); Color Urine Yellow; Glucose Urine UA Negative (Negative); Ketones Urine Negative (Negative); Leukocyte Esterase Urine Negative (Negative); Nitrite Urine Negative (Negative); Protein Urine Trace (Negative); RBC Urine Automated 0-4 /hpf (0-4); Specific Gravity Urine 1.024 (1.000-1.030); Urobilinogen Urine Negative (Negative)
[2022-10-20] MEDS: ACETAMINOPHEN 500 MG TAB PO SCH ×2 (05:25→12:57)
[2022-10-20] MEDS: ALBUT/IPRATROP 3MG/0.5MG NEB 3 ML VIAL NEB SCH ×2 (07:29→11:46)
[2022-10-20] MEDS: SODIUM CHLOR 7% 4 ML NEB NEB SCH (07:30)
[2022-10-20] MEDS: dilTIAZem HCL 30 MG TAB PO SCH (08:32)
[2022-10-20] MEDS: CYCLOBENZAPRINE HCL 10 MG TAB PO SCH (08:32)
[2022-10-20] MEDS: ATORVASTATIN 40 MG TAB PO SCH (08:33)
[2022-10-20] MEDS: PANTOprazole 40 MG TAB PO SCH (08:33)
[2022-10-20] MEDS: METOPROLOL TARTRATE 50 MG TAB PO SCH (08:33)
[2022-10-20] MEDS: allopurinoL 300 MG TAB PO SCH (08:33)
[2022-10-20] MEDS: LIDOCAINE 5% 1 PATCH TD SCH (08:40)
[2022-10-20 08:41] LABS: Albumin Globulin Ratio 1.5 (0.9-2); Bilirubin,Total 0.5 mg/dl (0.2-1.0); Creatinine Clr Calc Pharmacy 55.8 ml/min; Est GFR (African American) 68.4 ml/min; Globulin 2.7 gm/dl (2.5-4.0); Potassium 4.3 mmol/L (3.5-5.1); Total Protein 6.7 gm/dl (6.0-8.3)
[2022-10-20 11:17] LABS: Anisocytosis Present; Basophils # (auto) 0.02 K/uL (0-0.2); Basophils % (auto) 0.1 %; Eosinophils # (auto) 0.03 K/uL (0-0.50); Eosinophils % (auto) 0.2 %; Giant Platelets 1+; Hematocrit (blood only) 35.2 % (40.1-51.0); Hypogranular Neutrophils 1+; Immature Granulocytes # (auto) 0.06 K/uL (0.00-0.02); Immature Granulocytes % (auto) 0.4 %; Lymphocytes # (auto) 1.34 K/uL (1.2-3.4); Lymphocytes % (auto) 8.4 %; Mean Corpuscular Hemoglobin 27.7 pg (25.0-34.0); Mean Corpuscular Hgb Conc 31.3 g/dL (32.0-36.0); Mean Corpuscular Volume 88.7 fL (80.0-100.0); Monocytes # (auto) 5.21 K/uL (0.24-0.82); Monocytes % (auto) 32.5 %; Neutrophils # (auto) 9.38 K/uL (1.4-6.5); Neutrophils % (auto) 58.4 %; Nucleated RBC # (auto) 0.02 K/uL (0-0); Nucleated RBC % (auto) 0.1 %; Platelet Count 99 K/uL (130-400); Polychromasia 1+; RDW Standard Deviation 65.9 fL (36.4-46.3); Red Blood Count 3.97 M/uL (4.63-6.08); White Blood Count 16.04 K/ul (4.8-10.8)
[2022-10-20 11:31] LABS: BUN Creatinine Ratio 33.1 (10-20)
--- NOTE | 2022-10-20 13:48 | Cardiology Progress Note ---
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 - Continue medical therapy with metoprolol, diltiazem ( which he is on for rhythm control of his PSVT) agree of transitioning him from simvastatin to atorvastatin for more intensive lipid lowering, monitor his LFTs. - Continue treatment of his pain with regards to the rib fractures. - Given his change in cardiac status, would likely be best to minimize or avoid exposure to doxorubicin given the potential for cardiac toxicity given the change in the patient's cardiac status.Will coordinate with Dr Rojas of Hematology / Oncology who is considering starting prednisone for the thrombocytopenia. -Outpt PET CT planned for has been rescheduled. -Would recommend delay of port placement for 4-6 weeks, agree with plan to administer chemo via PICC line in the interim. Admission and Anticipated Discharge Date Admission Date: October 17, 2022 Subjective Patient seen in cardiology follow-up this morning. Feels well, but has not been very mobile as of yet, has not tried to walk in the hallway. Telemetry reveals sinus rhythm in the 60s to 70s with no SVT episodes. He is accompanied by his spouse at the bedside. Physical Exam Constitutional: no acute distress Respiratory: + labored breathing ( Pain with deep inspiration) Auscultation: + diminished lung sounds ( mildly reduced breath sounds at the bases bilaterally); no crackles and no pleural rub Cardiovascular: Rate/Rhythm: regular rate Heart Sounds: + murmur (1/6 SM ) Extremities: no edema Gastrointestinal (Abdomen): normal bowel sounds, soft, nontender, no hepatosplenomegaly Neurologic: PERRL, EOMI, accommodation nl, no face palsy, no dysarthria Results & Data ([facility]) Vital Signs (Past 12 Hours) Vital Signs Temp Pulse Pulse Pulse Resp BP BP 10/20/22 11:57 10/20/22 11:46 61 18 10/20/22 11:42 36.5 C 80 20 119/74 10/20/22 08:00 81 10/20/22 08:00 10/20/22 11:19 36.5 C 80 20 119/74 10/20/22 07:37 36.5 C 74 18 115/75 10/20/22 07:30 77 18 10/20/22 02:48 36.5 C 79 16 143/83 H Pulse Ox O2 Del Method O2 Flow Rate 10/20/22 11:57 94 10/20/22 11:46 93 Oxymask 2 10/20/22 11:42 97 Room Air 10/20/22 08:00 10/20/22 08:00 Nasal Cannula 2 10/20/22 11:19 97 Room Air 10/20/22 07:37 98 Oxymask 2 10/20/22 07:30 97 Oxymask 2 10/20/22 02:48 94 Room Air Laboratory Results Cardiac Enzymes 10/20/22 Range/Units 06:58 AST 43 H (13-39) U/L CBC 10/20/22 Range/Units 06:58 WBC 16.04 H (4.8-10.8) K/ul RBC 3.97 L (4.63-6.08) M/uL Hgb 11.0 L (14.0-18.0) g/dl Hct 35.2 L (40.1-51.0) % Plt Count 99 L D (130-400) K/uL Neut # (Auto) 9.38 H (1.4-6.5) K/uL Lymph # (Auto) 1.34 (1.2-3.4) K/uL [place]verse # (Auto) 5.21 H (0.24-0.82) K/uL Eos # (Auto) 0.03 (0-0.50) K/uL Baso # (Auto) 0.02 (0-0.2) K/uL Comprehensive Metabolic Panel 10/20/22 Range/Units 06:58 Sodium 138 (136-145) mmol/L Potassium 4.3 (3.5-5.1) mmol/L Chloride 105 (98-107) mmol/L Carbon Dioxide 26 (21-32) mmol/L BUN 40 H D (6-23) mg/dl Creatinine 1.21 (0.6-1.4) mg/dl Glucose 81 (70-99(Fasting)) mg/dl Calcium 9.0 (8.5-10.1) mg/dl AST 43 H (13-39) U/L ALT 30 (7-52) U/L Alkaline Phosphatase 52 (34-104) U/L Total Protein 6.7 (6.0-8.3) gm/dl Albumin 4.0 (3.4-5.0) gm/dl Intake and Output 10/19/22 10/20/22 10/20/22 22:59 06:59 14:59 Intake Total 100 / 955 300 / 955 Output Total 700 / 1100 200 / 1100 Balance -600 / -145 100 / -145 Intake: Oral 100 / 955 300 / 955 Output: Urine 700 / 1100 200 / 1100 Other: Other Intake Source sips Weight 72.5 kg Weight Measurement Method Built in [facility]
--- NOTE | 2022-10-20 13:57 | Hospitalist Progress Note ---
Date of Service October 20, 2022 Assessment & Plan (1) Acute respiratory failure with hypoxia: (2) Closed rib fracture: Plan: Patient is 72 y/o M with PMH hepatitis C, PAD, AAA, COPD, tachybradycardia syndrome s/p pacemaker, HTN, dyslipidemia, recently diagnosed B-cell lymphoma presented to ER with complaint of shortness of breath. 10/16/21 In ER for fall and rightsided rib pain. At that time CT chest with "nondisplaced fractures of the right posterior ninth and 10th ribs. No pneumothorax is seen,bibasilar atelectasis, trace right contusion cannot be entirely excluded". CT head at that time was without intracranial abnormality noted. Overnight developed increased pain and increased SOB In ER patient noted to be tachypneic, pulse ox in the 70s and patient was placed on nonrebreather Patient's respiratory status improved on nonrebreather CT chest and abdomen pelvis: 1. Stable exam from the chest CT obtained 24 hours earlier. 2. Acute fractures of the posterior right 10th and 11th ribs are redemonstrated without pneumothorax. 3. Trace pleural effusions with mild bibasilar atelectasis. 4. Pulmonary emphysema. 5. No acute posttraumatic intra- abdominal or intrapelvic abnormality. In ER given morphine with improvement of pain Discussed with radiology regarding CT chest with contrast study on admission. Major pulmonary vessels were opacified with contrast during the scan; no PE was seen. Plan; Pain control with scheduled Tylenol, oxycodone and morphine. Incentive spirometry Duo nebs, hypertonic saline for pulmonary toileting done earlier in the hospitalization; will switch to as needed DuoNeb. Supplemental oxygen as needed to maintain saturation above 90% (3) NSTEMI (non-ST elevated myocardial infarction): Plan: EKG on admission showed T wave inversion in inferior lateral leads. High-sensitivity troponin elevated to 11K; down trended to 8K. Echocardiogram shows a small size inferior wall motion abnormality with hypokinesis of the segment which is new from his echo from 2 weeks ago. No complaint of chest pain. Heparin started overnight; discontinued as patient's platelets are 23,000. No aspirin due to thrombocytopenia. Cardiology on board; recommend to continue metoprolol and Cardizem. Lipitor started. (4) Thrombocytopenia: (5) B-cell lymphoma: Plan: Leukocytosis Recent diagnosis B-cell lymphoma His leukocytosis down trended from 48,000 to 16,000 Blood culture on admission negative. Chest x-ray does not show any infiltrate. Dc empiric antibiotics as cx are negative. History of known ITP; previously on IVIG. Platelet improved to 99,000 today Oncology consulted; patient had PET scan scheduled for PET scan on October 21. It will be rescheduled to October 28. Patient to have port placement by surgery after discharge. If continues to be thrombocytopenic; he will have chemotherapy through PICC line. (6) Tachy-boris syndrome: Plan: S/p pacemaker On Cardizem; rhythm control for PSVT. (7) HTN (hypertension): Plan: Stable Continue diltiazem, metoprolol tartrate (8) COPD (chronic obstructive pulmonary disease): Plan: Albuterol neb as needed (9) Dyslipidemia: Plan: Started on Lipitor. DC home simvastatin at discharge. Plan DVT Prophylaxis SCDs DNR/DNI as per discussion with pt DispoHome with home PT OT. Patient continues to be hospitalized due to severe chest pain. If pain is well controlled on oral medication; likely discharge in a.m. tomorrow. Admission and Anticipated Discharge Date Admission Date: October 17, 2022 Subjective Patient seen and examined at bedside. He appears to be more comfortable; chest pain well controlled on current medications. Review of Systems Review of Systems: All systems reviewed & are unremarkable except as noted in Subjective Physical Exam Physical Exam: General; he is alert, oriented x3; in distress due to pain Chest wall; tenderness present in right ninth and 10th rib Respiratorybilateral vesicular breath sound; decreased breath sound at bases CVSS1-S2 heard no murmur Abdomensoft nontender MSKno edema Skinno rash or bruises Neurogrossly intact Results & Data Results & Data ([facility]) Vital Signs (Past 12 Hours) Vital Signs Temp Pulse Pulse Pulse Resp BP BP 10/20/22 11:57 10/20/22 11:46 61 18 10/20/22 11:42 36.5 C 80 20 119/74 10/20/22 08:00 81 10/20/22 08:00 10/20/22 11:19 36.5 C 80 20 119/74 10/20/22 07:37 36.5 C 74 18 115/75 10/20/22 07:30 77 18 10/20/22 02:48 36.5 C 79 16 143/83 H Pulse Ox O2 Del Method O2 Flow Rate 10/20/22 11:57 94 10/20/22 11:46 93 Oxymask 2 10/20/22 11:42 97 Room Air 10/20/22 08:00 10/20/22 08:00 Nasal Cannula 2 10/20/22 11:19 97 Room Air 10/20/22 07:37 98 Oxymask 2 10/20/22 07:30 97 Oxymask 2 10/20/22 02:48 94 Room Air Laboratory Results Laboratory Results WBC 16.04 K/ul (4.8-10.8) H 10/20/22 06:58 RBC 3.97 M/uL (4.63-6.08) L 10/20/22 06:58 Hgb 11.0 g/dl (14.0-18.0) L 10/20/22 06:58 POC Hgb 11.6 g/dl (14.0-18.0) L 10/17/22 20:13 Hct 35.2 % (40.1-51.0) L 10/20/22 06:58 POC Hct 34 % (42-52) L 10/17/22 20:13 MCV 88.7 fL (80.0-100.0) 10/20/22 06:58 MCH 27.7 pg (25.0-34.0) 10/20/22 06:58 MCHC 31.3 g/dL (32.0-36.0) L 10/20/22 06:58 RDW Std Deviation 65.9 fL (36.4-46.3) H 10/20/22 06:58 RDW Coeff of Efren 21.0 % (11.5-14.5) H 10/20/22 06:58 Plt Count 99 K/uL (130-400) L D 10/20/22 06:58 Immature Gran % (Auto) 0.4 % 10/20/22 06:58 Neut % (Auto) 58.4 % 10/20/22 06:58 Lymph % (Auto) 8.4 % 10/20/22 06:58 Dickenson % (Auto) 32.5 % 10/20/22 06:58 Eos % (Auto) 0.2 % 10/20/22 06:58 Baso % (Auto) 0.1 % 10/20/22 06:58 Neut # (Auto) 9.38 K/uL (1.4-6.5) H 10/20/22 06:58 Lymph # (Auto) 1.34 K/uL (1.2-3.4) 10/20/22 06:58 Dickenson # (Auto) 5.21 K/uL (0.24-0.82) H 10/20/22 06:58 Eos # (Auto) 0.03 K/uL (0-0.50) 10/20/22 06:58 Baso # (Auto) 0.02 K/uL (0-0.2) 10/20/22 06:58 Immature Gran # (Auto) 0.06 K/uL (0.00-0.02) H 10/20/22 06:58 Absolute Nucleated RBC 0.02 K/uL (0-0) H 10/20/22 06:58 Nucleated RBC % (auto) 0.1 % 10/20/22 06:58 Neutrophils % (Manual) 57 % 10/17/22 08:50 Lymphocytes % (Manual) 3 % 10/17/22 08:50 Monocytes % (Manual) 39 % 10/17/22 08:50 Neutrophils # (Manual) 27.47 K/uL (1.4-6.5) H 10/17/22 08:50 Total Absolute Neuts 27.47 K/uL (1.4-6.5) H 10/17/22 08:50 Lymphocytes # (Manual) 1.45 K/uL (1.2-3.4) 10/17/22 08:50 Total Abs Lymphocytes 1.45 K/uL (1.2-3.4) 10/17/22 08:50 Monocytes # (Manual) 18.79 K/uL (0.24-0.82) H 10/17/22 08:50 Hypogranular Neuts 1+ 10/20/22 06:58 Toxic Vacuolation 1+ 10/18/22 03:53 Dohle Bodies 2+ 10/19/22 06:17 Platelet Estimate Signific. Decreased (Normal) L 10/18/22 03:53 Giant Platelets 1+ 10/20/22 06:58 Polychromasia 1+ 10/20/22 06:58 Hypochromasia Present 10/17/22 08:50 Anisocytosis Present 10/20/22 06:58 Peripher Smr Path Cons 10/17/22 08:50 PT 12.6 Seconds (9.0-12.0) H 10/17/22 08:50 INR 1.2 (0.9-1.1) H 10/17/22 08:50 APTT 33.0 Seconds (21.0-31.0) H 10/18/22 08:04 PTT Ratio 1.2 10/18/22 08:04 Sample Site R Radial 10/17/22 20:13 POC pH 7.42 (7.35-7.45) 10/17/22 20:13 POC pCO2 31 mmHg (35-46) L 10/17/22 20:13 POC pO2 55 mmHg (80-95) L 10/17/22 20:13 POC HCO3 20 devon/L (19-24) 10/17/22 20:13 POC Total CO2 21 mmol/L (24-31) L 10/17/22 20:13 POC Base Excess -4.0 devon/L (-9-1.8) 10/17/22 20:13 ABG pH (Temp Correct) 7.428 (7.35-7.45) 10/17/22 20:13 ABG pCO2 (Temp Corrct 30 mmHg (35-46) L 10/17/22 20:13 POC ABG pO2 at Pt Temp 52 10/17/22 20:13 POC ABG O2 Sat 89.0 % (90-95) L 10/17/22 20:13 Devon Test Pass 10/17/22 20:13 VBG pH 7.40 (7.36-7.41) 10/17/22 08:50 VBG pCO2 33 mmHg (38-50) L 10/17/22 08:50 VBG pO2 42 mmHg 10/17/22 08:50 VBG HCO3 20 mmol/L 10/17/22 08:50 VBG O2 Saturation 72.2 % 10/17/22 08:50 VBG Base Excess -3.6 mEq/L 10/17/22 08:50 O2 Delivery Device NonRb Mask 10/17/22 20:13 POC Sodium 135 mmol/L (135-144) 10/17/22 20:13 Sodium 138 mmol/L (136-145) 10/20/22 06:58 POC Potassium 4.6 mmol/L (3.3-5.0) 10/17/22 20:13 Potassium 4.3 mmol/L (3.5-5.1) 10/20/22 06:58 Chloride 105 mmol/L (98-107) 10/20/22 06:58 Carbon Dioxide 26 mmol/L (21-32) 10/20/22 06:58 Anion Gap 7 (3-11) 10/20/22 06:58 BUN 40 mg/dl (6-23) H D 10/20/22 06:58 Creatinine 1.21 mg/dl (0.6-1.4) 10/20/22 06:58 Est Cr Clr Drug Dosing 55.8 ml/min 10/20/22 06:58 Est GFR ( Amer) 68.4 ml/min 10/20/22 06:58 Est GFR (Non-Af Amer) 59.0 ml/min 10/20/22 06:58 BUN/Creatinine Ratio 33.1 (10-20) H 10/20/22 06:58 Glucose 81 mg/dl (70-99(Fasting)) 10/20/22 06:58 Calcium 9.0 mg/dl (8.5-10.1) 10/20/22 06:58 Total Bilirubin 0.5 mg/dl (0.2-1.0) 10/20/22 06:58 AST 43 U/L (13-39) H 10/20/22 06:58 ALT 30 U/L (7-52) 10/20/22 06:58 Alkaline Phosphatase 52 U/L (34-104) 10/20/22 06:58 Troponin I High Sens 8616.2 pg/ml (0-20) H* 10/18/22 10:07 Total Protein 6.7 gm/dl (6.0-8.3) 10/20/22 06:58 Albumin 4.0 gm/dl (3.4-5.0) 10/20/22 06:58 Globulin 2.7 gm/dl (2.5-4.0) 10/20/22 06:58 Albumin/Globulin Ratio 1.5 (0.9-2) 10/20/22 06:58 Urine Color Yellow 10/20/22 Unknown Urine Appearance Clear (Clear) 10/20/22 Unknown Urine pH 5.0 (4.5-7.5) 10/20/22 Unknown Ur Specific [place] 1.024 (1.000-1.030) 10/20/22 Unknown Urine Protein Trace (Negative) H 10/20/22 Unknown Urine Glucose (UA) Negative (Negative) 10/20/22 Unknown Urine Ketones Negative (Negative) 10/20/22 Unknown Urine Blood Negative (Negative) 10/20/22 Unknown Urine Nitrite Negative (Negative) 10/20/22 Unknown Urine Bilirubin Negative (Negative) 10/20/22 Unknown Urine Urobilinogen Negative (Negative) 10/20/22 Unknown Ur Leukocyte Esterase Negative (Negative) 10/20/22 Unknown Urine WBC (Auto) 1-5 /hpf (0-5) 10/20/22 Unknown Urine RBC (Auto) 0-4 /hpf (0-4) 10/20/22 Unknown U Hyaline Cast (Auto) 1-5 /lpf (0-5) 10/20/22 Unknown U Epithel Cells (Auto) 10-20 /lpf (0-5) H 10/20/22 Unknown Urine Bacteria (Auto) Negative (Negative) 10/20/22 Unknown SARS-CoV-2, RNA, NAAT NEGATIVE (NEGATIVE) 10/17/[address] 10/17/22 08:57 CT CHEST WITH IV CONTRAST; ABDOMEN AND PELVIS CT WITH IV CONTRAST CT DOSE: 532.01 mGy.cm HISTORY: Acute chest and abdominal trauma with right-sided rib fractures. trauma, hypoxia TECHNIQUE: Multiaxial CT images of the chest, abdomen and pelvis were performed following the IV administration of 90 cc of Optiray, A dose lowering technique was utilized adhering to the principles of ALARA. COMPARISON STUDY: Chest CT October 16, 2022, CT abdomen and pelvis 02/01/2022. FINDINGS: CHEST CT: Unremarkable thyroid. Left subclavian pacer. Moderate cardiomegaly without pericardial effusion. Extensive coronary artery calcifications. Atherosclerosis of the aorta without aneurysm. There is patency of the imaged great vessels. The opacified pulmonary artery is unremarkable. No lymphadenopathy. Trace pleural effusions with mild dependent bibasilar atelectasis. Respiratory motion artifact limits evaluation of the lungs. Moderate emphysema. Mild tracheobronchial secretions. Unremarkable soft tissues. Acute nondisplaced fracture of the posterior right 10th rib again noted with acute minimally displaced fracture of the posterior right 11th rib. 25% superior endplate compression of the T7 vertebral body without retropulsion is chronic. CT ABDOMEN/PELVIS: No pneumatosis or pneumoperitoneum. The spleen measures the upper limits of normal at 13 cm. Unremarkable pancreas and adrenal glands. Vicarious excretion o f contrast in the gallbladder. There are a few scattered subcentimeter hypodensities of the liver which too small to characterize, likely benign. Patent portal vein. There are a few right-sided renal cysts again noted. No hydronephrosis. Contrast noted within the urinary bladder lumen. 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 High-grade stenosis of the left common iliac artery is 319. No lymphadenopathy identified. No bowel obstruction or bowel wall thickening. Moderate colonic fecal retention. Normal appendix. Unremarkable soft tissues. No acute fracture identified. ORIF changes of the left proximal femur. IMPRESSION: 1. Stable exam from the chest CT obtained 24 hours earlier. 2. Acute fractures of the posterior right 10th and 11th ribs are redemonstrated without pneumothorax. 3. Trace pleural effusions with mild bibasilar atelectasis. 4. Pulmonary emphysema. 5. No acute posttraumatic intra-abdominal or intrapelvic abnormality. ACT 112: Negative or not required by law. The above report was generated using voice recognition software. It may contain grammatical, syntax or spelling errors. Electronically signed by: Michael Boateng M.D. 10/17/2022 10:10 AM Abdomen/Pelvis CT 10/17/22 08:58 CT CHEST WITH IV CONTRAST; ABDOMEN AND PELVIS CT WITH IV CONTRAST CT DOSE: 532.01 mGy.cm HISTORY: Acute chest and abdominal trauma with right-sided rib fractures. trauma, hypoxia TECHNIQUE: Multiaxial CT images of the chest, abdomen and pelvis were performed following the IV administration of 90 cc of Optiray, A dose lowering technique was utilized adhering to the principles of ALARA. COMPARISON STUDY: Chest CT October 16, 2022, CT abdomen and pelvis 02/01/2022. FINDINGS: CHEST CT: Unremarkable thyroid. Left subclavian pacer. Moderate cardiomegaly without pericardial effusion. Extensive coronary artery calcifications. Atherosclerosis of the aorta without aneurysm. There is patency of the imaged great vessels. The opacified pulmonary artery is unremarkable. No lymphadenopathy. Trace pleural effusions with mild dependent bibasilar atelectasis. Respiratory motion artifact limits evaluation of the lungs. Moderate emphysema. Mild tracheobronchial secretions. Unremarkable soft tissues. Acute nondisplaced fracture of the posterior right 10th rib again noted with acute minimally displaced fracture of the posterior right 11th rib. 25% superior endplate compression of the T7 vertebral body without retropulsion is chronic. CT ABDOMEN/PELVIS: No pneumatosis or pneumoperitoneum. The spleen measures the upper limits of normal at 13 cm. Unremarkable pancreas and adrenal glands. Vicarious excretion of contrast in the gallbladder. There are a few scattered subcentimeter hypodensities of the liver which too small to characterize, likely benign. Patent portal vein. There are a few right-sided renal cysts again noted. No hydronephrosis. Contrast noted within the urinary bladder lumen. 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 High-grade stenosis of the left common iliac artery is 319. No lymph adenopathy identified. No bowel obstruction or bowel wall thickening. Moderate colonic fecal retention. Normal appendix. Unremarkable soft tissues. No acute fracture identified. ORIF changes of the left proximal femur. IMPRESSION: 1. Stable exam from the chest CT obtained 24 hours earlier. 2. Acute fractures of the posterior right 10th and 11th ribs are redemonstrated without pneumothorax. 3. Trace pleural effusions with mild bibasilar atelectasis. 4. Pulmonary emphysema. 5. No acute posttraumatic intra-abdominal or intrapelvic abnormality. ACT 112: Negative or not required by law. The above report was generated using voice recognition software. It may contain grammatical, syntax or spelling errors. Electronically signed by: Michael Boateng M.D. 10/17/2022 10:10 AM Venous Doppler Study 10/18/22 07:26 US venous doppler LE BI CLINICAL HISTORY: Rule out DVT TECHNIQUE: Right lower extremity real-time compression venous ultrasound with Color Doppler imaging. Utilizing real-time ultrasonic imaging multiple real time high-resolution ultrasonic images with compression and noncompression maneuvers of the deep venous system in addition to color doppler imaging were performed from the common femoral vein through the proximal calf veins. COMPARISON: None available at the time of this dictation. FINDINGS/IMPRESSION: Currently there is normal compressibility of the deep venous system from the common femoral vein through the proximal calf veins. No superficial venous thrombosis is identified. ACT 112: Negative or not required by law. Electronically signed by: Kvng Delatorre M.D. 10/18/2022 9:11 AM Chest X-Ray 10/18/22 07:43 XR chest 1V portable CLINICAL HISTORY: Hypoxia TECHNIQUE: Single frontal radiograph of the chest was obtained. Comparison: Comparison is made to chest radiograph 10/17/[address] chest 10/17/2029 FINDINGS: Dual lead pacemaker is seen. Calcified aortic knob is seen. The lungs are clear. No evidence of pleural effusion or pneumothorax. Right rib fractures are better seen on CT. IMPRESSION: No acute chest disease. ACT 112: Negative or not required by law. Electronically signed by: Kvng Delatorre M.D. 10/18/2022 8:22 AM
--- NOTE | 2022-10-20 17:26 | Discharge Summary ---
Date of Service October 20, 2022 Admission HPI Per Admitting Provider Patient is 72 y/o M with PMH hepatitis C, PAD, AAA, COPD, tachybradycardia syndrome s/p pacemaker, HTN, dyslipidemia, recently diagnosed B-cell lymphoma presented to ER with complaint of shortness of breath. History obtained from patient, patient's , chart review. Patient was seen in ER yesterday after reported fall at home. Yesterday had CT chest with report of "nondisplaced fractures of the right posterior ninth and 10th ribs. No pneumothorax is seen,bibasilar atelectasis, trace right contusion cannot be entirely excluded" and also had CT scan head with no acute intracranial abnormality noted. Patient was ultimately discharged home. He has been taking oxycodone with minimal relief. Reports at home having significant right-sided rib pain that worsened last night. Pain aggravated with breathing and movement of torso. States became short of breath during the night. reports patient seemed very sleepy this morning, was having shortness of breath and complaining of severe pain so was brought to ER. Denies fever/chills, diaphoresis, N/V/D/C, RUIZ, dizziness, syncope, vision changes, neck pain, palpitations, cough, sore throat, otalgia, rhinorrhea, abdominal pain, paresthesias, extremity weakness, extremity edema, rashes, urinary symptoms. Principal Diagnosis (1) Acute respiratory failure with hypoxia: (2) Closed rib fracture: (3) NSTEMI (non-ST elevated myocardial infarction): Discharge Exam General; he is alert, oriented x3; in distress due to pain Chest wall; tenderness present in right ninth and 10th rib Respiratorybilateral vesicular breath sound; decreased breath sound at bases CVSS1-S2 heard no murmur Abdomensoft nontender MSKno edema Skinno rash or bruises Neurogrossly intact Discharge Data Allergies Allergy/AdvReac Type Severity Reaction Status Date / Time cephalexin Allergy Intermediate vomiting, Verified 10/15/22 09:03 diarrhea Consultations 10/17/22 11:12 ED Decision to Admit Stat 10/18/22 08:00 Consult Cardiology Routine Consult Oncology Routine Ordered Studies 10/17/22 08:57 CT chest diagnostic w con Stat 10/17/22 08:58 CT Abd and Pelvis [CT abd pelvis IV con only] Stat 10/18/22 07:26 US venous doppler LE BI Urgent Hospital Course (1) Acute respiratory failure with hypoxia: (2) Closed rib fracture: Patient is 72 y/o M with PMH hepatitis C, PAD, AAA, COPD, tachybradycardia syndrome s/p pacemaker, HTN, dyslipidemia, recently diagnosed B-cell lymphoma presented to ER with complaint of shortness of breath. 10/16/21 In ER for fall and rightsided rib pain. At that time CT chest with "nondisplaced fractures of the right posterior ninth and 10th ribs. No pneumothorax is seen,bibasilar atelectasis, trace right contusion cannot be entirely excluded". CT head at that time was without intracranial abnormality noted. Overnight developed increased pain and increased SOB In ER patient noted to be tachypneic, pulse ox in the 70s and patient was placed on nonrebreather Patient's respiratory status improved on nonrebreather CT chest and abdomen pelvis: 1. Stable exam from the chest CT obtained 24 hours earlier. 2. Acute fractures of the posterior right 10th and 11th ribs are redemonstrated without pneumothorax. 3. Trace pleural effusions with mild bibasilar atelectasis. 4. Pulmonary emphysema. 5. No acute posttraumatic intra- abdominal or intrapelvic abnormality. In ER given morphine with improvement of pain Discussed with radiology regarding CT chest with contrast study on admission. Major pulmonary vessels were opacified with contrast during the scan; no PE was seen. Plan; Pain control with scheduled Tylenol, oxycodone and morphine. Incentive spirometry Patient oxygen requirement was down trended to room air at discharge. He did not require frequent morphine for pain control. He was prescribed oxycodone at discharge for pain control. (3) NSTEMI (non-ST elevated myocardial infarction): EKG on admission showed T wave inversion in inferior lateral leads. High-sensitivity troponin elevated to 11K; down trended to 8K. Echocardiogram shows a small size inferior wall motion abnormality with hypokinesis of the segment which is new from his echo from 2 weeks ago. No complaint of chest pain. Heparin started overnight; discontinued as patient's platelets are 23,000. No aspirin due to thrombocytopenia. Cardiology on board; recommend to continue metoprolol and Cardizem. Lipitor started. Simvastatin was discontinued at discharge. Lipitor was started. No antiplatelet agent given thrombocytopenia. Discussed with cardiology at discharge. (4) Thrombocytopenia: (5) B-cell lymphoma: Leukocytosis Recent diagnosis B-cell lymphoma His leukocytosis down trended from 48,000 to 16,000 Blood culture on admission negative. Chest x-ray does not show any infiltrate. Dc empiric antibiotics as cx are negative. History of known ITP; previously on IVIG. Platelet improved to 99,000 at discharge. Oncology consulted; patient had PET scan scheduled on October 21. It will be rescheduled to October 28. Patient to have port placement by surgery after discharge. If continues to be thrombocytopenic; he will have chemotherapy through PICC line. (6) Tachy-boris syndrome: S/p pacemaker On Cardizem; rhythm control for PSVT. (7) HTN (hypertension): Stable Continue diltiazem, metoprolol tartrate (8) COPD (chronic obstructive pulmonary disease): Albuterol neb as needed (9) Dyslipidemia: Started on Lipitor. DC home simvastatin at discharge. Plan PT OT recommended rehab. However, patient was very insistent on going home, refused going to rehab. Patient was discharged home with his . Home PT OT to be set up for the patient. Patient to have primary care follow-up for sometime next week. Total Time Total Time Spent Total Time Spent (In Minutes): 40 Total Time Includes: Examination of the Patient, Discharge Planning, Medication Reconciliation, Communication With Other Providers and Other Discharge Plan Discharge Items Patient Disposition: Home - Self-Care Reason For Visit: HYPOXIA Discharge Diagnosis: (1) Acute respiratory failure with hypoxia: (2) Closed rib fracture (3) NSTEMI (non-ST elevated myocardial infarction): (4) Thrombocytopenia: (5) B-cell lymphoma: Activity: Resume your previous activity Non-emergency contact: Primary Care Provider Call non-emergency contact if: you have any medication questions and your symptoms worsen Follow-up/Referrals: Kimmy Bradshaw PA-C [Primary Care Provider] - Diet: Regular Addtl Attending Provider Instructions: You are prescribed oxycodone as needed for pain control every 6 hours for the rib fracture. You were prescribed Lipitor for high cholesterol. Please stop taking simvastatin. Please continue to take deep breaths. You will have a follow-up set up with your primary care doctor for sometime next week. Pending Studies at Discharge: No Stand-Alone Forms: My [facility], Smoking Cessation Medications and DC Order Prescriptions: New atorvastatin 40 mg Tablet 40 mg PO QAM Qty: 30 0RF oxycodone 5 mg Tablet 5 mg PO Q6H Qty: 20 0RF Continued metoprolol tartrate [Lopressor] 50 mg tablet 50 mg PO BID diltiazem HCl [Cardizem] 30 mg tablet 30 mg PO BID cyclobenzaprine 10 mg Tablet 10 mg PO BID pantoprazole [Protonix] 40 mg tablet,delayed release (DR/EC) 40 mg PO QAM Rx Instructions: 30 mins before breakfast on an empty stomach allopurinol 300 mg Tablet 300 mg PO QAM ondansetron 4 mg Tablet,Disintegrating 4 mg PO UD PRN (Reason: Nausea) albuterol sulfate 90 mcg/actuation Hfa Aerosol Inhaler 1 inh INHALATION QID PRN (Reason: sob) polyethylene glycol 3350 [Miralax] 17 gram Powder In Packet 17 g PO QAM PRN (Reason: Constipation) acetaminophen 500 mg Tablet 500 mg PO Q6H PRN (Reason: Pain) Discontinued oxycodone 5 mg Tablet 5 mg PO QID PRN (Reason: Pain) simvastatin [Zocor] 20 mg tablet 10 mg PO HS Rx Instructions: take half tablet (10mg) daily Discharge Orders: Discharge Order (Routine); Ordered 10/20/22 Ordered By: Dmitry Fernandes Admission Data Admit Date/Time: 10/17/22 11:53 Attending Provider: Dmitry Fernandes Admit Provider: Dmitry Fernandes Primary Care Provider: Kimmy Bradshaw Other Providers: Dmitry Fernandes ; Zaki Betancourt ; Rigoberto Campos ; Joel Phillips ; Dipesh Cheney ; JamesJoesph gonzalez ; Magdaleno Miranda ; Melodie Woody ; Tali Rodriguez ; Cheyenne Hernandez ; Dustin Renner ; [facility] ; Niyah Rojas
== END 2022-10-20 17:53 | disposition home health service (06) | DRG 280 ==
LOC: ED 08:30 → 2S 11:53

== ENCOUNTER 2022-10-26 22:32 | Inpatient (IN) ==
[2022-10-26] MEDS ORDERED: fentaNYL citrate 100 MCG/2 ML VIAL IV STA (23:02)
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
[2022-10-27 00:08] LABS: Albumin Globulin Ratio 1.5 (0.9-2); Albumin Level 3.8 gm/dl (3.4-5.0); BUN Creatinine Ratio 19.2 (10-20); Bilirubin,Total 0.5 mg/dl (0.2-1.0); Calcium 8.9 mg/dl (8.5-10.1); Creatinine Clr Calc Pharmacy 50.9 ml/min; Est GFR (African American) 65.8 ml/min; Est GFR (Non-African American) 56.8 ml/min; Globulin 2.6 gm/dl (2.5-4.0); Potassium 3.3 mmol/L (3.5-5.1); Total Protein 6.4 gm/dl (6.0-8.3)
[2022-10-27] MEDS ORDERED: fentaNYL citrate 100 MCG/2 ML VIAL IV STA (00:13)
[2022-10-27 00:18] LABS: INR 1.1 (0.9-1.1); Partial Thromboplastin Ratio 1.1; Partial Thromboplastin Time 31.3 Seconds (21.0-31.0)
[2022-10-27 00:31] LABS: Hematocrit (blood only) 33.5 % (42.0-52.0); Hemoglobin 11.1 g/dl (14.0-18.0); Mean Corpuscular Hemoglobin 27.8 pg (25.0-34.0); Mean Corpuscular Hgb Conc 33.1 g/dL (32.0-36.0); Mean Corpuscular Volume 83.8 fL (80.0-100.0); Platelet Count 54 K/uL (130-400); RDW Coefficient of Variation 20.2 % (11.5-14.5)
[2022-10-27] MEDS ORDERED: NSS + 20MEQ KCL 20 MEQ/1,000 ML BAG IV ONE (00:35)
[2022-10-27] MEDS: POTASSIUM CHLORIDE CRTAB 20 MEQ TABCR PO STA ×2 (01:01→01:05)
[2022-10-27] MEDS ORDERED: oxyCODONE HCL IR 5 MG TAB (IMMEDIATE RELEASE) PO STA (01:06)
[2022-10-27 01:08] LABS: Magnesium 1.8 mg/dl (1.7-2.4)
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
[2022-10-27 01:11] LABS: Anisocytosis Present; Basophils # (auto) 0.01 K/uL (0-0.2); Basophils % (auto) 0.1 %; Eosinophils # (auto) 0.07 K/uL (0-0.50); Eosinophils % (auto) 0.4 %; Giant Platelets 1+; Immature Granulocytes # (auto) 0.11 K/uL (0.01-0.20); Immature Granulocytes % (auto) 0.6 %; Lymphocytes # (auto) 1.97 K/uL (1.2-3.4); Lymphocytes % (auto) 11.4 %; Monocytes # (auto) 9.51 K/uL (0.11-0.59); Neutrophils # (auto) 5.63 K/uL (1.40-6.50); Neutrophils % (auto) 32.5 %; Platelet Estimate Decreased (Normal)
[2022-10-27] MEDS: MoRPHine SULFATE 4 MG/ML 1 ML CARP\\VIAL IV PRN ×2 (01:21→05:35)
[2022-10-27] MEDS ORDERED: LEVALBUTEROL 1.25MG/0.5ML NEB INH PRN (02:54)
[2022-10-27] MEDS ORDERED: bisacodyL 10 MG SUPP PR PRN (02:54)
[2022-10-27] MEDS ORDERED: NALOXONE HCL 0.4 MG/1 ML VIAL/CARP IV PRN (02:54)
[2022-10-27] MEDS ORDERED: XOPENEX/ATROVENT 1.25mg/0.5MG NEB COMBO NEB PRN (02:54)
[2022-10-27] MEDS ORDERED: MAGNESIUM HYDROXIDE SUSP 30 ML UDC PO PRN (02:54)
[2022-10-27] MEDS ORDERED: IPRATROPIUM BROMIDE NEB SOLN 0.02% 2.5 ML VIAL INH PRN (02:54)
[2022-10-27] MEDS ORDERED: KETOROLAC TROMETHAMINE 15 MG/ML VIAL IV ONE (03:35)
[2022-10-27] MEDS: MAGNESIUM SULFATE / D5W 1 GM/100 ML BAG IV ONE ×2 (03:45→03:46)
[2022-10-27 06:44] LABS: Hypogranular Neutrophils 1+
--- NOTE | 2022-10-27 07:23 | XRay Report ---
SINGLE VIEW CHEST CLINICAL HISTORY: Fall. FINDINGS: An AP, portable, supine chest radiograph is compared to study dated 10/18/2022 and correlate d with chest CT dated 10/17/2022. The examination is degraded by portable technique and apical lordoti c positioning. A 2-lead cardiac pacemaker is unchanged in position. The heart is enlarged noting athe rosclerotic calcification of the thoracic aorta. The pulmonary vasculature is noncongested. Emphysema and chronic interstitial thickening is similar to previous. Scarring/atelectasis is noted at the rosalina g bases. No airspace consolidation or large pleural effusion is identified. No pneumothorax is seen. The skeletal structures are osteopenic. The bony thorax is grossly intact. IMPRESSION: 1. Cardiomegaly and cardiac pacemaker without radiographic evidence of congestive failure. 2. Emphysema. 3. No airspace consolidation or large pleural effusion is identified. ACT 112: Negative or not required by law. Electronically signed by: Richie Freire M.D. 10/27/2022 7:21 AM
--- NOTE | 2022-10-27 07:24 | XRay Report ---
RIGHT HIP 2 VIEWS CLINICAL HISTORY: Fall with right hip injury. FINDINGS: AP and crosstable lateral views of the right hip compared to study dated 10/16/2022. The ske letal structures are osteopenic. There is a mildly displaced fracture through the neck and intertroch anteric region of the right femur. Overlying soft tissue edema is noted. The visualized right hemipel vis appears intact. Postsurgical change is partially visualized in the left proximal femur. Moderate arthritic change and joint space narrowing is seen in the right hip. Degenerative sclerosis is noted in the sacroiliac joints. Lumbosacral spondylosis is partially visualized. IMPRESSION: Fracture of the right proximal femur as above. Electronically signed by: Richie Freire M.D. 10/27/2022 7:23 AM
[2022-10-27 08:07] LABS: Hematocrit (blood only) 32.5 % (42.0-52.0); Hemoglobin 10.6 g/dl (14.0-18.0); Mean Corpuscular Hemoglobin 27.6 pg (25.0-34.0); Mean Corpuscular Hgb Conc 32.6 g/dL (32.0-36.0); Mean Corpuscular Volume 84.6 fL (80.0-100.0); Platelet Count 47 K/uL (130-400); RDW Coefficient of Variation 20.2 % (11.5-14.5); RDW Standard Deviation 61.6 fL (36.4-46.3); Red Blood Count 3.84 M/uL (4.70-6.10); White Blood Count 14.17 K/ul (4.8-10.8)
[2022-10-27 08:14] LABS: BUN Creatinine Ratio 18.7 (10-20); Calcium 8.4 mg/dl (8.5-10.1); Creatinine Clr Calc Pharmacy 51.6 ml/min; Est GFR (African American) 67.1 ml/min; Est GFR (Non-African American) 57.9 ml/min; Potassium 3.6 mmol/L (3.5-5.1)
[2022-10-27] MEDS: oxyCODONE HCL IR 5 MG TAB (IMMEDIATE RELEASE) PO PRN (09:05)
[2022-10-27 09:22] LABS: Anisocytosis Present; Basophils # (auto) 0.02 K/uL (0-0.2); Basophils % (auto) 0.1 %; Eosinophils # (auto) 0.03 K/uL (0-0.50); Eosinophils % (auto) 0.2 %; Giant Platelets 1+; Immature Granulocytes # (auto) 0.13 K/uL (0.01-0.20); Immature Granulocytes % (auto) 0.9 %; Lymphocytes # (auto) 1.73 K/uL (1.2-3.4); Lymphocytes % (auto) 12.2 %; Monocytes # (auto) 7.73 K/uL (0.11-0.59); Monocytes % (auto) 54.6 %; Neutrophils # (auto) 4.53 K/uL (1.40-6.50)
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
[2022-10-27 09:42] LABS: Appearance Urine Cloudy (Clear); Bacteria Urine Automated Negative (Negative); Bilirubin Urine Negative (Negative); Blood Urine 2+ (Negative); Color Urine Dark Yellow; Epithelial Cell Urine Auto >30 /lpf (0-5); Glucose Urine UA Negative (Negative); Ketones Urine Negative (Negative); Leukocyte Esterase Urine Negative (Negative); Nitrite Urine Negative (Negative); Protein Urine 1+ (Negative); Specific Gravity Urine 1.023 (1.000-1.030); Urobilinogen Urine Negative (Negative)
[2022-10-27] MEDS: allopurinoL 300 MG TAB PO SCH (09:49)
[2022-10-27] MEDS: dilTIAZem HCL 30 MG TAB PO SCH ×2 (09:49→21:40)
[2022-10-27] MEDS: CYCLOBENZAPRINE HCL 10 MG TAB PO SCH (09:49)
[2022-10-27] MEDS: METOPROLOL TARTRATE 50 MG TAB PO SCH ×2 (09:50→21:40)
[2022-10-27] MEDS: PANTOprazole 40 MG TAB PO SCH (09:50)
[2022-10-27 09:52] LABS: Cast Urine Automated >30 /lpf (0-5); Sperm Urine Present (None Prsent)
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
[2022-10-27] MEDS ORDERED: SODIUM CHLORIDE 0.9% 250 ML IV PRN ×2 (12:16→14:24)
[2022-10-27] MEDS ORDERED: dexAMETHasone 40 MG in DEXTROSE 5% 25 ML IV SCH (12:45)
[2022-10-27] MEDS ORDERED: BUPIVACAINE/EPINEPHRINE 0.5% MPF 1:200,000 10 ML VIAL ONE (14:17)
[2022-10-27] MEDS ORDERED: ROCURONIUM BROMIDE 10 MG/ML 5 ML VIAL IV ONE (14:28)
[2022-10-27] MEDS ORDERED: LIDOCAINE 2% MPF LOCAL 5 ML VIAL INFIL ONE (14:28)
[2022-10-27] MEDS ORDERED: PROPOFOL IV EMULSION 10 MG/ML 20 ML VIAL IV ONE (14:28)
[2022-10-27] MEDS ORDERED: ONDANSETRON INJ 2 MG/ML 2 ML VIAL ONE (14:28)
[2022-10-27] MEDS ORDERED: PHENYLEPHRINE HCL 10 MG/ML VIAL ONE (14:28)
[2022-10-27] MEDS ORDERED: MIDAZOLAM HCL 1 MG/ML 2ML VIAL ONE (14:29)
[2022-10-27] MEDS ORDERED: fentaNYL citrate 100 MCG/2 ML VIAL ONE (14:29)
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
[2022-10-27] MEDS ORDERED: ceFAZolin 2,000 MG/15 ML IV PUSH IV ONE (14:53)
--- NOTE | 2022-10-27 14:53 | Hospitalist Progress Note ---
Date of Service October 27, 2022 Assessment & Plan (1) Closed hip fracture: Plan: Right hip fracture secondary to fall Presents with mechanical fall at home. Recent admission with rib fracture WBC of 14.1, hemoglobin 10.6. Platelet count of 47 Plan; Cardiology evaluated the patient; increased risks of perioperative cardiac complication due to recent NSTEMI. Discussed with hematology; patient recommended to be transfused 2 units of platelets and dexamethasone 40 mg once before the procedure. Orthopedic to undergo for surgery today PT OT after surgery Pain control (2) Thrombocytopenia: (3) B-cell lymphoma: Plan: History of thrombocytopenia. Recently diagnosed B-cell lymphoma Plan is to transfer to units of platelets and give dexamethasone 40 mg once prior to surgery Patient has PET scan scheduled for tomorrow which will need to be rescheduled; oncology informed. 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 He is lying in the bed comfortably; denies any discomfort or pain. Review of Systems Review of Systems: All systems reviewed & are unremarkable except as noted in Subjective Physical Exam Physical Exam: Constitutional: WD/WN, vitals as above, NAD, sitting up in bed, pleasant, conversing easily Respiratory: normal respiratory effort, lungs clear to auscultation, no wheeze, rales, rhonchi. Normal insp/exp effort, no accessory muscle use Cardiovascular: RRR, no murmur, no edema Vessels: no JVD or carotid bruit Chest: normal inspection of chest Abdomen: normal bowel sounds, soft, nontender, no hepatosplenomegaly Musculoskeletal: Right hip tenderness present Skin: no rashes, warm and dry normal turgor Neurologic: PERRL, EOMI, accommodation nl, no face palsy, no dysarthria CN's II- XI intact bilaterally and moves all extremities Psychiatric: A+Ox3, euthymic affect Lymphatic: no cervical or axillary lymphadenopathy : deferred Results & Data Results & Data ([facility]) Vital Signs (Past 12 Hours) Vital Signs Temp Pulse Pulse Resp BP BP Pulse Ox 10/27/22 14:27 36.8 C 80 20 120/70 10/27/22 14:40 37.1 C 82 22 121/65 10/27/22 14:12 36.8 C 76 16 125/72 10/27/22 07:23 36.6 C 84 18 120/69 95 10/27/22 03:45 10/27/22 03:45 36.6 C 74 16 127/79 93 O2 Del Method 10/27/22 14:27 10/27/22 14:40 10/27/22 14:12 10/27/22 07:23 Room Air 10/27/22 03:45 Room Air 10/27/22 03:45 Room Air Laboratory Results Laboratory Results WBC 14.17 K/ul (4.8-10.8) H 10/27/22 07:32 RBC 3.84 M/uL (4.70-6.10) L 10/27/22 07:32 Hgb 10.6 g/dl (14.0-18.0) L 10/27/22 07:32 Hct 32.5 % (42.0-52.0) L 10/27/22 07:32 MCV 84.6 fL (80.0-100.0) 10/27/22 07:32 MCH 27.6 pg (25.0-34.0) 10/27/22 07:32 MCHC 32.6 g/dL (32.0-36.0) 10/27/22 07:32 RDW Std Deviation 61.6 fL (36.4-46.3) H 10/27/22 07:32 RDW Coeff of Efren 20.2 % (11.5-14.5) H 10/27/22 07:32 Plt Count 47 K/uL (130-400) L 10/27/22 07:32 Immature Gran % (Auto) 0.9 % 10/27/22 07:32 Neut % (Auto) 32.0 % 10/27/22 07:32 Lymph % (Auto) 12.2 % 10/27/22 07:32 [place] % (Auto) 54.6 % 10/27/22 07:32 Eos % (Auto) 0.2 % 10/27/22 07:32 Baso % (Auto) 0.1 % 10/27/22 07:32 Neut # (Auto) 4.53 K/uL (1.40-6.50) 10/27/22 07:32 Lymph # (Auto) 1.73 K/uL (1.2-3.4) 10/27/22 07:32 [place] # (Auto) 7.73 K/uL (0.11-0.59) H 10/27/22 07:32 Eos # (Auto) 0.03 K/uL (0-0.50) 10/27/22 07:32 Baso # (Auto) 0.02 K/uL (0-0.2) 10/27/22 07:32 Immature Gran # (Auto) 0.13 K/uL (0.01-0.20) 10/27/22 07:32 Hypogranular Neuts 1+ 10/26/22 23:25 Platelet Estimate Decreased (Normal) L 10/26/22 23:25 Giant Platelets 1+ 10/27/22 07:32 Anisocytosis Present 10/27/22 07:32 PT 12.0 Seconds (9.0-12.0) 10/26/22 23:25 INR 1.1 (0.9-1.1) 10/26/22 23:25 APTT 31.3 Seconds (21.0-31.0) H 10/26/22 23:25 PTT Ratio 1.1 10/26/22 23:25 Sodium 135 mmol/L (136-145) L 10/27/22 07:32 Potassium 3.6 mmol/L (3.5-5.1) 10/27/22 07:32 Chloride 107 mmol/L (98-107) 10/27/22 07:32 Carbon Dioxide 22 mmol/L (21-32) 10/27/22 07:32 Anion Gap 6 (3-11) 10/27/22 07:32 BUN 23 mg/dl (6-23) 10/27/22 07:32 Creatinine 1.23 mg/dl (0.6-1.4) 10/27/22 07:32 Est Cr Clr Drug Dosing 51.6 ml/min 10/27/22 07:32 Est GFR ( Amer) 67.1 ml/min 10/27/22 07:32 Est GFR (Non-Af Amer) 57.9 ml/min 10/27/22 07:32 BUN/Creatinine Ratio 18.7 (10-20) 10/27/22 07:32 Glucose 100 mg/dl (70-99(Fasting)) H 10/27/22 07:32 Calcium 8.4 mg/dl (8.5-10.1) L 10/27/22 07:32 Magnesium 1.8 mg/dl (1.7-2.4) 10/26/22 23:25 Total Bilirubin 0.5 mg/dl (0.2-1.0) 10/26/22 23:25 AST 16 U/L (13-39) 10/26/22 23:25 ALT 13 U/L (7-52) 10/26/22 23:25 Alkaline Phosphatase 54 U/L (34-104) 10/26/22 23:25 Total Protein 6.4 gm/dl (6.0-8.3) 10/26/22 23:25 Albumin 3.8 gm/dl (3.4-5.0) 10/26/22 23:25 Globulin 2.6 gm/dl (2.5-4.0) 10/26/22 23:25 Albumin/Globulin Ratio 1.5 (0.9-2) 10/26/22 23:25 Urine Color Dark Yellow 10/27/22 09:10 Urine Appearance Cloudy (Clear) A 10/27/22 09:10 Urine pH 5.0 (4.5-7.5) 10/27/22 09:10 Ur Specific [place] 1.023 (1.000-1.030) 10/27/22 09:10 Urine Protein 1+ (Negative) H 10/27/22 09:10 Urine Glucose (UA) Negative (Negative) 10/27/22 09:10 Urine Ketones Negative (Negative) 10/27/22 09:10 Urine Blood 2+ (Negative) H 10/27/22 09:10 Urine Nitrite Negative (Negative) 10/27/22 09:10 Urine Bilirubin Negative (Negative) 10/27/22 09:10 Urine Urobilinogen Negative (Negative) 10/27/22 09:10 Ur Leukocyte Esterase Negative (Negative) 10/27/22 09:10 Urine WBC (Auto) 10-30 /hpf (0-5) H 10/27/22 09:10 Urine RBC (Auto) 10-30 /hpf (0-4) H 10/27/22 09:10 U Hyaline Cast (Auto) >30 /lpf (0-5) H 10/27/22 09:10 U Epithel Cells (Auto) >30 /lpf (0-5) H 10/27/22 09:10 Urine Bacteria (Auto) Negative (Negative) 10/27/22 09:10 Ur Renal Epithelial Cell Not Reportable 10/27/22 09:10 Granular Casts 1-5 /lpf (0) H 10/27/22 09:10 Urine Sperm Present (None Prsent) A 10/27/22 09:10 SARS-CoV-2, RNA, NAAT NEGATIVE (NEGATIVE) 10/27/22 00:28 Blood Type O Positive 10/27/22 07:32 Antibody Screen NEGATIVE 10/27/22 07:32 Crossmatch See Detail 10/27/22 07:32 Impressions Chest X-Ray 10/26/22 23:03 SINGLE VIEW CHEST CLINICAL HISTORY: Fall. FINDINGS: An AP, portable, supine chest radiograph is compared to study dated 10/18/2022 and correlated with chest CT dated 10/17/2022. The examination is degraded by portable technique and apical lordotic positioning. A 2-lead cardiac pacemaker is unchanged in position. The heart is enlarged noting atherosclerotic calcification of the thoracic aorta. The pulmonary vasculature is noncongested. Emphysema and chronic interstitial thickening is similar to previous. Scarring/atelectasis is noted at the lung bases. No airspace consolidation or large pleural effusion is identified. No pneumothorax is seen. The skeletal structures are osteopenic. The bony thorax is grossly intact. IMPRESSION: 1. Cardiomegaly and cardiac pacemaker without radiographic evidence of congestive failure. 2. Emphysema. 3. No airspace consolidation or large pleural effusion is identified. ACT 112: Negative or not required by law. Electronically signed by: Richie Freire M.D. 10/27/2022 7:21 AM Hip X-Ray 10/26/22 23:03 RIGHT HIP 2 VIEWS CLINICAL HISTORY: Fall with right hip injury. FINDINGS: AP and crosstable lateral views of the right hip compared to study dated 10/16/2022. The skeletal structures are osteopenic. There is a mildly displaced fracture through the neck and intertrochanteric region of the right femur. Overlying soft tissue edema is noted. The visualized right hemipelvis appears intact. Postsurgical change is partially visualized in the left proximal femur. Moderate arthritic change and joint space narrowing is seen in the right hip. Degenerative sclerosis is noted in the sacroiliac joints. Lumbosacral spondylosis is partially visualized. IMPRESSION: Fracture of the right proximal femur as above. Electronically signed by: Richie Freire M.D. 10/27/2022 7:23 AM (1) Closed hip fracture Encounter type: initial encounter Laterality: right Qualified Code(s): S72.001A - Fracture of unspecified part of neck of right femur, initial encounter for closed fracture
[2022-10-27] MEDS ORDERED: SUGAMMADEX SODIUM 200 MG/2 ML VIAL IV ONE (14:55)
[2022-10-27] MEDS ORDERED: ceFAZolin 2000MG 2,000 MG/15 ML SYR IV ONE (15:00)
--- NOTE | 2022-10-27 15:30 | Electrocardiogram Report ---
Test Reason : Blood Pressure : / mmHG Vent. Rate : 080 BPM Atrial Rate : 080 BPM P-R Int : 166 ms QRS Dur : 082 ms QT Int : 370 ms P-R-T Axes : 063 -43 041 degrees QTc Int : 426 ms Normal sinus rhythm Left axis deviation Left ventricular hypertrophy with repolarization abnormality Abnormal ECG When compared with ECG of 19-OCT-2022 05:36, Premature atrial complexes are no longer Present T wave inversion no longer evident in Inferior leads QT has shortened Confirmed by Justice Chau ([id number]) on 10/27/2022 3:30:15 PM Referred By: REFERRED SELF Confirmed By:Justice Chau
[2022-10-27] MEDS ORDERED: HYDROmorphone INJ 1 MG/ML SYRINGE IV PRN (15:35)
[2022-10-27] MEDS ORDERED: fentaNYL citrate 100 MCG/2 ML VIAL IV PRN (15:35)
[2022-10-27] MEDS ORDERED: ONDANSETRON INJ 2 MG/ML 2 ML VIAL IV PRN (15:35)
[2022-10-27] MEDS ORDERED: ATROPINE SULFATE 0.1 MG/ML 10ML SYR IV PRN (15:35)
[2022-10-27] MEDS ORDERED: ePHEDrine sulfate 50 MG/ML AMP IV PRN (15:35)
--- NOTE | 2022-10-27 15:36 | Electrocardiogram Report ---
Test Reason : Blood Pressure : / mmHG Vent. Rate : 081 BPM Atrial Rate : 081 BPM P-R Int : 160 ms QRS Dur : 090 ms QT Int : 394 ms P-R-T Axes : 075 -48 042 degrees QTc Int : 457 ms Sinus rhythm with Premature atrial complexes Left anterior fascicular block Inferior infarct , age undetermined Nonspecific T wave abnormality Abnormal ECG When compared with ECG of 26-OCT-2022 23:49, (unconfirmed) Premature atrial complexes are now Present Confirmed by Justice Chau ([id number]) on 10/27/2022 3:36:16 PM Referred By: REFERRED SELF Confirmed By:Justice Chau
--- NOTE | 2022-10-27 16:59 | Fluoroscopy Report ---
FL hip RT 2-3V CLINICAL HISTORY: RT TROCH NAIL COMPARISON STUDY: Right hip 10/26/2022. FLUOROSCOPY TIME: 58 seconds FLUOROSCOPY IMAGES: 4 EXPOSURE DOSE: 8.1 mGy FINDINGS: There is a right femoral intramedullary mary within interlocking femoral neck pin traversing the intertrochanteric fracture. The hardware appears intact. There is improved anatomic alignment. IMPRESSION: Fluoroscopic assistance as above. ACT 112: Negative or not required by law. Electronically signed by: Kyle Barker M.D. 10/27/2022 4:57 PM
--- NOTE | 2022-10-27 17:07 | Operative Report ---
PG Post Operative Report Pre & Post Diagnosis Operation Date: 10/27/22 12:20 Pre-Op Diagnosis: RT INTERTROCHANTERIC HIP FX Post-Op Diagnosis: RT INTERTROCHANTERIC HIP FX I identified the patient and participated in the time-out.: Yes Procedure Operation Date: 10/27/22 12:20 Actual Procedures p Right Hip Intramedullary Nail(Right) - Rigoberto Null MD Surgeon Rigoberto Null MD Retail Account Specialist Saul Castañeda PA-C Estimated Blood Loss 100 Findings Consistent with Post-Op Diagnosis Specimens None Anesthesia Type General Complications none Disposition Accompanied Patient To Recovery: No Indications Patient is a 72-year-old with multiple medical problems who sustained several falls recently. He developed the relatively acute onset of hip pain. He was brought to emergency room where x-rays revealed a intertrochanteric hip fractu re. Patient was medically optimized and seen several medical services including cardiology and hematology. He was indicated for surgical repair. Description of Procedure Operative implants consist of: 1 Synthes 360 mm x 11 mm right long trochanteric nail. 2. 95 mm helical blade. 3. 46 mm distal interlocking screw. The patient was taken the operating, identified, placed on the operating table supine position but all contact areas were properly padded. IV antibiotics tried by anesthesia team. A general anesthetic was implemented. The patient was a placed on the fracture table. The right leg was placed in boot traction of the left leg was placed in a well leg mckeon. I applied some longitudinal traction to the right leg and internally rotated the foot so the kneecap pointed to the ceiling. X-rays brought in and the fracture was nearly anatomically aligned. The right hip and leg were then scrubbed with Hibiclens, prepped with ChloraPrep and draped in usual sterile fashion. A curvilinear incision was made just proximal to the tip of the trochanter. Sharp dissection was carried through subcutaneous tissue down to level of the gluteal fascia. Gluteal fascia incised longitudinally in line with skin incision. A guidewire was then placed just lateral to the tip of the trochanter in both AP and lateral planes in line with the IM canal. It was advanced down the canal. Was overreamed with a large reamer. This guidewire was removed and exchanged for the ball-tipped guidewire. The ball-tipped guidewire was placed down the canal of the femur length was measured. A 360 mm nail was selected. I overreamed the guidewire with a 12.5 mm reamer. A 360 mm right 11 mm long trochanteric nail was then placed over the guidewire. It was tapped in position. The guidewire was removed. The lateral aiming arm was attached. Stab incision was made in the lateral aiming arm was advanced to the lateral femur. A guidewire was placed in the central aspect of the femoral head neck in both AP and lateral planes. This was measured. A a 95 mm helical blade was selected. The cortical strut drill was used to breach the cortex and a 95 mm reamer was placed to ream for the helical blade. The 95 mm helical blade was placed and tapped in position. This was verified fluoroscopically. The proximal setscrew was tightened. Some final x-rays were obtained. Attention drawn toward distal interlocking. Using the perfect [place] technique the distal interlocking screw was placed. A stab incision was made. We drilled a hole and then placed a 46 mm screw. Some final x-rays were obtained. Attention drawn toward closing. The wounds were irrigated with coconuts normal saline. I did inject locally with 30 cc of half percent Marcaine with epinephrine. The gluteal fascia was then closed with #1 Vicryl suture running fashion for subcutaneous tissues of all wounds were then closed with 2-0 Dexon suture in a buried interrupted fashion skin was closed skin neymar. Leg was then cleaned and dried a sterile dressing was Xeroform, 4 x 4's, ABD pad, foam tape was applied. The patient then taken off the fracture table. Was brought out of general anesthesia and transferred to the recovery room in stable condition. Patient tolerated procedure well and there were no complications. Saul Castañeda, my physician commercial escrow assistant, was present for the entire procedure. His assistance was required for proper patient positioning, prepping and draping, surgical exposure, retraction, placement of the implants, closure of the wound a nd placement of sterile bandage. I attest to the content of the Intraoperative Record and any orders documented therein. Any exceptions are noted below.
--- NOTE | 2022-10-27 17:27 | Anesthesiology Progress Note ---
Date of Service October 27, 2022 Anesthesia Post Procedure Vital Signs Vital Signs: Temp Pulse Pulse Resp BP BP Pulse Ox 10/27/22 15:10 37.2 C 83 20 121/64 10/27/22 14:27 36.8 C 80 20 120/70 10/27/22 14:40 37.1 C 82 22 121/65 10/27/22 14:40 37.1 C 82 22 121/65 91 10/27/22 14:12 36.8 C 76 16 125/72 10/27/22 07:23 36.6 C 84 18 120/69 95 10/27/22 03:45 10/27/22 03:45 36.6 C 74 16 127/79 93 10/27/22 02:00 80 18 121/75 90 10/27/22 00:00 79 20 123/68 90 10/26/22 22:46 36.9 C 89 20 117/59 L 94 O2 Del Method 10/27/22 15:10 10/27/22 14:27 10/27/22 14:40 10/27/22 14:40 Room Air 10/27/22 14:12 10/27/22 07:23 Room Air 10/27/22 03:45 Room Air 10/27/22 03:45 Room Air 10/27/22 02:00 Room Air 10/27/22 00:00 Room Air 10/26/22 22:46 Room Air Pain Intensity Right Hip: Pain Intensity: 9 Transfer of Care Handoff Completed per policy Notes Mental Status: alert / awake / arousable and participated in evaluation Patient Amnestic to Procedure: Yes Nausea / Vomiting: adequately controlled Pain: adequately controlled Airway Patency, RR, SpO2: stable & adequate BP & HR: stable & adequate Hydration State: stable & adequate Anesthetic Complications: no major complications apparent and Pt Satisfied with anesthetic care
[2022-10-27] MEDS ORDERED: ALBUTEROL HFA 8 GM INHALER INH PRN (18:28)
[2022-10-27] MEDS ORDERED: oxyCODONE HCL IR 5 MG TAB (IMMEDIATE RELEASE) PO SCH (18:28)
[2022-10-27] MEDS ORDERED: ONDANSETRON 4 MG OD TAB PO PRN (18:28)
[2022-10-27] MEDS ORDERED: POLYETHYLENE (MIRALAX) 17 GM PACK PO PRN (18:28)
[2022-10-27] MEDS: SODIUM CHLORIDE 0.9% 1000ML 1,000 ML IV SCH ×2 (18:47→22:34)
[2022-10-27] MEDS: ALBUT/IPRATROP 3MG/0.5MG NEB 3 ML VIAL NEB SCH (19:52)
[2022-10-27] MEDS: ceFAZolin 1000MG 1,000 MG/7.5 ML SYR IV SCH (22:33)
[2022-10-28] MEDS: CYCLOBENZAPRINE HCL 10 MG TAB PO SCH ×3 (01:27→20:12)
[2022-10-28] MEDS: oxyCODONE HCL IR 5 MG TAB (IMMEDIATE RELEASE) PO PRN ×3 (01:36→14:45)
[2022-10-28] MEDS: ceFAZolin 1000MG 1,000 MG/7.5 ML SYR IV SCH (06:10)
[2022-10-28] MEDS: ALBUT/IPRATROP 3MG/0.5MG NEB 3 ML VIAL NEB SCH ×2 (06:58→11:06)
--- NOTE | 2022-10-28 08:06 | Progress Notes ---
DATE OF SERVICE: 10/28/2022. SUBJECTIVE: A 72-year-old gentleman with multiple medical comorbidities, postop day 1 from IM nailin g of a right intertrochanteric fracture. He is doing well this morning. A fairly minimal pain while resting in bed. No new complaints. OBJECTIVE: VITAL SIGNS: Temperature 36.3. Vital signs are stable. GENERAL: Shows a thin elderly male. He is lying in bed and looks comfortable. EXTREMITIES: Examination of the right leg reveals the leg to be well aligned. Dressings are clean, dry, and intact. He can dorsiflex and plantarflex his foot appropriately. NEUROLOGIC: He is neurologically intact. LABORATORY DATA: Labs are pending. ASSESSMENT: A 72-year-old gentleman with multiple medical comorbidities, postop day 1 from IM nailin g of a right intertrochanteric fracture. Orthopedically, he seems to be doing okay. Multiple medica l issues to manage. PLAN: 1. DVT prophylaxis includes thigh-high TEDs and SCDs. 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 2. PT/OT. He can weight bear as tolerated on the right leg. 3. Routine wound care. 4. Medical management as per the medicine service. 5. Disposition: He is orthopedically okay for discharge any time medically stable. I need to see h im back in 2-3 weeks out from surgery date. Any orthopedic questions can be directed to me at [phone] . Job ID: [id number]
[2022-10-28] MEDS: dilTIAZem HCL 30 MG TAB PO SCH ×2 (08:12→20:12)
[2022-10-28] MEDS: PANTOprazole 40 MG TAB PO SCH (08:12)
[2022-10-28] MEDS: ATORVASTATIN 40 MG TAB PO SCH (08:12)
[2022-10-28] MEDS: allopurinoL 300 MG TAB PO SCH (08:12)
[2022-10-28] MEDS: METOPROLOL TARTRATE 50 MG TAB PO SCH ×2 (08:12→20:12)
[2022-10-28 09:11] LABS: Basophils # (auto) 0.04 K/uL (0-0.2); Basophils % (auto) 0.1 %; Echinocytes 1+; Hematocrit (blood only) 31.1 % (42.0-52.0); Hemoglobin 9.8 g/dl (14.0-18.0); Immature Granulocytes # (auto) 0.28 K/uL (0.01-0.20); Lymphocytes # (auto) 1.11 K/uL (1.2-3.4); Lymphocytes % (auto) 3.8 %; Mean Corpuscular Hemoglobin 27.3 pg (25.0-34.0); Mean Corpuscular Hgb Conc 31.5 g/dL (32.0-36.0); Mean Corpuscular Volume 86.6 fL (80.0-100.0); Monocytes % (auto) 14.4 %; Neutrophils # (auto) 23.55 K/uL (1.40-6.50); Neutrophils % (auto) 80.7 %; Platelet Count 59 K/uL (130-400); Platelet Estimate Decreased (Normal); RDW Standard Deviation 62.2 fL (36.4-46.3); Red Blood Count 3.59 M/uL (4.70-6.10); White Blood Count 29.18 K/ul (4.8-10.8)
[2022-10-28 11:02] LABS: BUN Creatinine Ratio 21.8 (10-20); Calcium 8.4 mg/dl (8.5-10.1); Creatinine Clr Calc Pharmacy 53.3 ml/min; Est GFR (African American) 69.8 ml/min; Est GFR (Non-African American) 60.2 ml/min; Potassium 4.1 mmol/L (3.5-5.1)
[2022-10-28] MEDS ORDERED: ALBUT/IPRATROP 3MG/0.5MG NEB 3 ML VIAL NEB PRN (11:35)
--- NOTE | 2022-10-28 16:31 | Hospitalist Progress Note ---
Date of Service October 28, 2022 Assessment & Plan (1) Closed hip fracture: Plan: Right hip fracture secondary to fall Presents with mechanical fall at home Recent admission with rib fractur WBC of 14.1, hemoglobin 10.6. Platelet count of 47 Cardiology evaluated the patient; increased risks of perioperative cardiac complication due to recent NSTEMI Discussed with hematology; patient recommended to be transfused 2 units of platelets and dexamethasone 40 mg once before the procedure POD#1 s/p IM nailing of a right intertrochanteric fracture by Dr. Null Anticoagulation includes thigh-high teds and SCDs. Avoid chemical prophylaxis d ue to a history of ITP and thrombocytopenia PT/OT. Per Ortho can weight-bear as tolerated on right leg. Continue wound care Plan to discharge to rehab. Appreciate case management assistance (2) Thrombocytopenia: (3) B-cell lymphoma: Plan: History of thrombocytopenia. Recently diagnosed B-cell lymphoma Plan is to transfer to units of platelets and give dexamethasone 40 mg once prior to surgery Patient has PET scan scheduled for tomorrow which will need to be rescheduled; oncology informed. 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 Please see attending documentation for corrections and/or additions. Admission and Anticipated Discharge Date Admission Date: October 27, 2022 Supervising Physician Co-Signing Physician Notes Patient seen and examined independently. Discussed with Miguelina Null PA-C. POD 1; comfortably sitting up on the chair. Not in any distress. working well with PT/OT Rehab needing; CM on board. Subjective Patient seen and examined at bedside. He sitting in bedside chair with some pain at site of hip. Also with rib pain on deep inspiration. at bedside. Agreeable to recommendation for rehab. Denies any other new symptoms overnight. No fever, chills, lightheadedness, chest pain, shortness of breath, nausea, vomiting, abdominal pain, dysuria, diarrhea or constipation. Review of Systems Review of Systems: As per HPI, all other systems reviewed and negative Physical Exam Physical Exam: Gen: WD/WN, NAD, sitting in bedside chair, A&Ox3 HEENT: Normocephalic, atraumatic, conjunctivae moist, sclerae anicteric, mucous membranes moist Lung: Clear to Auscultation bilaterally, no wheezes/rales/rhonchi Heart: Regular rate, regular rhythm, no murmurs, rubs, or gallops Abdomen: Soft, NT, ND +BS x 4 Extremities:+ R Hip dressing c/d/i. No edema Skin: Warm, no rash Results & Data Results & Data ([facility]) Vital Signs (Past 12 Hours) Vital Signs Temp Pulse Resp BP Pulse Ox O2 Del Method O2 Flow Rate 10/28/22 12:14 36.3 C L 81 18 96/60 L 94 Nasal Cannula 2 10/28/22 08:00 96 10/28/22 11:06 70 18 94 Nasal Cannula 2 10/28/22 07:35 36.3 C L 75 18 120/63 95 Nasal Cannula 2 10/28/22 06:59 77 18 94 Nasal Cannula 2 10/28/22 04:30 94 Nasal Cannula 2 Laboratory Results Short CBC 10/28/22 Range/Units 08:14 WBC 29.18 H (4.8-10.8) K/ul Hgb 9.8 L (14.0-18.0) g/dl Hct 31.1 L (42.0-52.0) % Plt Count 59 L (130-400) K/uL BMP 10/28/22 08:14 Sodium 137 Potassium 4.1 Chloride 107 Carbon Dioxide 21 BUN 26 H Creatinine 1.19 Glucose 150 H Calcium 8.4 L Diagnostic Findings Chest X-Ray 10/26/22 23:03 SINGLE VIEW CHEST CLINICAL HISTORY: Fall. FINDINGS: An AP, portable, supine chest radiograph is compared to study dated 10/18/2022 and correlated with chest CT dated 10/17/2022. The examination is degraded by portable technique and apical lordotic positioning. A 2-lead cardiac pacemaker is unchanged in position. The heart is enlarged noting atherosclerotic calcification of the thoracic aorta. The pulmonary vasculature is noncongested. Emphysema and chronic interstitial thickening is similar to previous. Scarring/atelectasis is noted at the lung bases. No airspace consolidation or large pleural effusion is identified. No pneumothorax is seen. The skeletal structures are osteopenic. The bony thorax is grossly intact. IMPRESSION: 1. Cardiomegaly and cardiac pacemaker without radiographic evidence of congestive failure. 2. Emphysema. 3. No airspace consolidation or large pleural effusion is identified. ACT 112: Negative or not required by law. Electronically signed by: Richie Freire M.D. 10/27/2022 7:21 AM Hip X-Ray 10/26/22 23:03 RIGHT HIP 2 VIEWS CLINICAL HISTORY: Fall with right hip injury. FINDINGS: AP and crosstable lateral views of the right hip compared to study dated 10/16/2022. The skeletal structures are osteopenic. There is a mildly displaced fracture through the neck and intertrochanteric region of the right femur. Overlying soft tissue edema is noted. The visualized right hemipelvis appears intact. Postsurgical change is partially visualized in the left proximal femur. Moderate arthritic change and joint space narrowing is seen in the right hip. Degenerative sclerosis is noted in the sacroiliac joints. Lumbosacral spondylosis is partially visualized. IMPRESSION: Fracture of the right proximal femur as above. Electronically signed by: Richie Freire M.D. 10/27/2022 7:23 AM Hip X-Ray 10/27/22 00:00 FL hip RT 2-3V CLINICAL HISTORY: RT TROCH NAIL COMPARISON STUDY: Right hip 10/26/2022. FLUOROSCOPY TIME: 58 seconds FLUOROSCOPY IMAGES: 4 EXPOSURE DOSE: 8.1 mGy FINDINGS: There is a right femoral intramedullary mary within interlocking femoral neck pin traversing the intertrochanteric fracture. The hardware appears intact. There is improved anatomic alignment. IMPRESSION: Fluoroscopic assistance as above. ACT 112: Negative or not required by law. Electronically signed by: Kyle Barker M.D. 10/27/2022 4:57 PM (1) Closed hip fracture Encounter type: initial encounter Laterality: right Qualified Code(s): S72.001A - Fracture of unspecified part of neck of right femur, initial encounter for closed fracture
--- NOTE | 2022-10-28 18:23 | Cardiology Progress Note ---
Date of Service October 28, 2022 Assessment & Plan (1) Closed hip fracture: (2) Thrombocytopenia: (3) CAD (coronary artery disease): Plan Post op Right Hip Intramedullary Nail 10/27/22. Recent NSTEMI. Recent rib fractures. 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 -Pt feeling well post op. -Not on ASA or pharm DVT prophylaxis due to his chronic thrombocytopenia. -Continue atorvastatin, diltiazem, metoprolol. Admission and Anticipated Discharge Date Admission Date: October 27, 2022 Subjective Pt seen in cardiology follow up. Sitting in bedside chair. Comfortable. Denies chest pain or shortness of breath. Physical Exam Constitutional: no acute distress Respiratory: normal respiratory effort, lungs clear to auscultation Cardiovascular: RRR, no murmur, no edema Gastrointestinal (Abdomen): normal bowel sounds, soft, nontender, no hepatosplenomegaly Neurologic: PERRL, EOMI, accommodation nl, no face palsy, no dysarthria Results & Data ([facility]) Vital Signs (Past 12 Hours) Vital Signs Temp Pulse Resp BP Pulse Ox O2 Del Method O2 Flow Rate 10/28/22 12:14 36.3 C L 81 18 96/60 L 94 Nasal Cannula 2 10/28/22 08:00 96 10/28/22 11:06 70 18 94 Nasal Cannula 2 10/28/22 07:35 36.3 C L 75 18 120/63 95 Nasal Cannula 2 10/28/22 06:59 77 18 94 Nasal Cannula 2 Laboratory Results CBC 10/28/22 Range/Units 08:14 WBC 29.18 H (4.8-10.8) K/ul RBC 3.59 L (4.70-6.10) M/uL Hgb 9.8 L (14.0-18.0) g/dl Hct 31.1 L (42.0-52.0) % Plt Count 59 L (130-400) K/uL Neut # (Auto) 23.55 H (1.40-6.50) K/uL Lymph # (Auto) 1.11 L (1.2-3.4) K/uL [place] # (Auto) 4.20 H (0.11-0.59) K/uL Eos # (Auto) 0.00 (0-0.50) K/uL Baso # (Auto) 0.04 (0-0.2) K/uL Comprehensive Metabolic Panel 10/28/22 Range/Units 08:14 Sodium 137 (136-145) mmol/L Potassium 4.1 (3.5-5.1) mmol/L Chloride 107 (98-107) mmol/L Carbon Dioxide 21 (21-32) mmol/L BUN 26 H (6-23) mg/dl Creatinine 1.19 (0.6-1.4) mg/dl Glucose 150 H (70-99(Fasting)) mg/dl Calcium 8.4 L (8.5-10.1) mg/dl Intake and Output 10/28/22 10/28/22 10/28/22 06:59 14:59 22:59 Intake Total 851.333 / 3024.000 360 / 360 Output Total 400 / 1275 200 / 200 Balance 451.333 / 1749.000 160 / 160 Intake: IV 601.333 / 1939.000 Sodium Chloride 0.9% 1000ML 1, 601.333 / 904.000 000 ml @ 80 mls/hr IV .[id number] [facility] Rx#:[id number] Oral 250 / 250 360 / 360 Output: Urine Amount (Catheter) 400 / 1175 200 / 200 Choudhary/Indwelling 400 / 1175 200 / 200 (1) Closed hip fracture Encounter type: initial encounter Laterality: right Qualified Code(s): S72.001A - Fracture of unspecified part of neck of right femur, initial encounter for closed fracture
[2022-10-29 06:34] LABS: Hematocrit (blood only) 27.5 % (42.0-52.0); Hemoglobin 8.9 g/dl (14.0-18.0); Mean Corpuscular Hemoglobin 28.2 pg (25.0-34.0); Mean Corpuscular Hgb Conc 32.4 g/dL (32.0-36.0); Nucleated RBC # (auto) 0.02 K/uL (0-0.12); Nucleated RBC % (auto) 0.1 %; Platelet Count 62 K/uL (130-400); RDW Coefficient of Variation 20.1 % (11.5-14.5); RDW Standard Deviation 63.4 fL (36.4-46.3); Red Blood Count 3.16 M/uL (4.70-6.10); White Blood Count 31.17 K/ul (4.8-10.8)
[2022-10-29 06:43] LABS: Basophils # (auto) 0.04 K/uL (0-0.2); Basophils % (auto) 0.1 %; Hypogranular Neutrophils 1+; Immature Granulocytes # (auto) 0.26 K/uL (0.01-0.20); Immature Granulocytes % (auto) 0.8 %; Lymphocytes # (auto) 1.25 K/uL (1.2-3.4); Monocytes # (auto) 11.01 K/uL (0.11-0.59); Monocytes % (auto) 35.3 %; Neutrophils # (auto) 18.61 K/uL (1.40-6.50); Neutrophils % (auto) 59.8 %; Polychromasia 1+
[2022-10-29 06:56] LABS: Albumin Globulin Ratio 1.3 (0.9-2); Albumin Level 3.4 gm/dl (3.4-5.0); BUN Creatinine Ratio 25.2 (10-20); Bilirubin,Total 0.4 mg/dl (0.2-1.0); Calcium 8.5 mg/dl (8.5-10.1); Creatinine Clr Calc Pharmacy 59.3 ml/min; Est GFR (African American) 79.4 ml/min; Est GFR (Non-African American) 68.5 ml/min; Globulin 2.6 gm/dl (2.5-4.0); Potassium 3.9 mmol/L (3.5-5.1)
[2022-10-29] MEDS: ATORVASTATIN 40 MG TAB PO SCH (08:17)
[2022-10-29] MEDS: PANTOprazole 40 MG TAB PO SCH (08:17)
[2022-10-29] MEDS: METOPROLOL TARTRATE 50 MG TAB PO SCH ×2 (08:17→20:02)
[2022-10-29] MEDS: CYCLOBENZAPRINE HCL 10 MG TAB PO SCH ×2 (08:17→20:02)
[2022-10-29] MEDS: dilTIAZem HCL 30 MG TAB PO SCH ×2 (08:17→20:02)
[2022-10-29] MEDS: allopurinoL 300 MG TAB PO SCH (08:17)
--- NOTE | 2022-10-29 13:58 | Hospitalist Progress Note ---
Date of Service October 29, 2022 Assessment & Plan (1) Closed hip fracture: Plan: Right hip fracture secondary to fall Presents with mechanical fall at home Recent admission with rib fractur Cardiology evaluated the patient; increased risks of perioperative cardiac complication due to recent NSTEMI Discussed with hematology; patient recommended to be transfused 2 units of platelets and dexamethasone 40 mg once before the procedure s/p IM nailing of a right intertrochanteric fracture by Dr. Null on 10/27/2022 Anticoagulation includes thigh-high teds and SCDs. Avoid chemical prophylaxis due to a history of ITP and thrombocytopenia PT/OT. Per Ortho can weight-bear as tolerated on right leg. Continue wound care Plan to discharge to rehab. Appreciate case management assistance (2) Thrombocytopenia: (3) B-cell lymphoma: Plan: History of thrombocytopenia. Recently diagnosed B-cell lymphoma (4) Closed rib fracture: Plan: Recent admission versus close rib fracture Pain well controlled currently (5) Tachy-boris syndrome: Plan: Status post pacemaker On Cardizem, rhythm control for PSVT (6) COPD (chronic obstructive pulmonary disease): Plan: Continue home inhalers (7) Dyslipidemia: Plan: Continue on Lipitor Plan DVT prophylaxis SCDs DNR/DNI Admission and Anticipated Discharge Date Admission Date: October 27, 2022 Subjective Patient seen and examined at bedside. He is sitting up on the chair at the side of the bed; not in any distress. Denies any fever, chills, chest pain or shortness of breath. Review of Systems Review of Systems: All systems reviewed & are unremarkable except as noted in Subjective Physical Exam Physical Exam: Constitutional: WD/WN, vitals as above, NAD, sitting up in bed, pleasant, conversing easily Respiratory: normal respiratory effort, lungs clear to auscultation, no wheeze, rales, rhonchi. Normal insp/exp effort, no accessory muscle use Cardiovascular: RRR, no murmur, no edema Vessels: no JVD or carotid bruit Chest: normal inspection of chest Abdomen: normal bowel sounds, soft, nontender, no hepatosplenomegaly Musculoskeletal: Right hip bandages intact; no soakage. Skin: no rashes, warm and dry normal turgor Neurologic: PERRL, EOMI, accommodation nl, no face palsy, no dysarthria CN's II- XI intact bilaterally and moves all extremities Psychiatric: A+Ox3, euthymic affect Lymphatic: no cervical or axillary lymphadenopathy : deferred Results & Data Results & Data ([facility]) Vital Signs (Past 12 Hours) Vital Signs Temp Pulse Resp BP Pulse Ox O2 Del Method O2 Flow Rate 10/29/22 09:00 Nasal Cannula 2 10/29/22 07:28 36.6 C 79 16 125/72 96 Nasal Cannula 2 10/29/22 03:42 36.6 C 83 16 119/69 94 Nasal Cannula 2 Laboratory Results Laboratory Results WBC 31.17 K/ul (4.8-10.8) H* 10/29/22 05:57 RBC 3.16 M/uL (4.70-6.10) L 10/29/22 05:57 Hgb 8.9 g/dl (14.0-18.0) L 10/29/22 05:57 Hct 27.5 % (42.0-52.0) L 10/29/22 05:57 MCV 87.0 fL (80.0-100.0) 10/29/22 05:57 MCH 28.2 pg (25.0-34.0) 10/29/22 05:57 MCHC 32.4 g/dL (32.0-36.0) 10/29/22 05:57 RDW Std Deviation 63.4 fL (36.4-46.3) H 10/29/22 05:57 RDW Coeff of Efren 20.1 % (11.5-14.5) H 10/29/22 05:57 Plt Count 62 K/uL (130-400) L 10/29/22 05:57 Immature Gran % (Auto) 0.8 % 10/29/22 05:57 Neut % (Auto) 59.8 % 10/29/22 05:57 Lymph % (Auto) 4.0 % 10/29/22 05:57 [place] % (Auto) 35.3 % 10/29/22 05:57 Eos % (Auto) 0.0 % 10/29/22 05:57 Baso % (Auto) 0.1 % 10/29/22 05:57 Neut # (Auto) 18.61 K/uL (1.40-6.50) H 10/29/22 05:57 Lymph # (Auto) 1.25 K/uL (1.2-3.4) 10/29/22 05:57 [place] # (Auto) 11.01 K/uL (0.11-0.59) H 10/29/22 05:57 Eos # (Auto) 0.00 K/uL (0-0.50) 10/29/22 05:57 Baso # (Auto) 0.04 K/uL (0-0.2) 10/29/22 05:57 Immature Gran # (Auto) 0.26 K/uL (0.01-0.20) H 10/29/22 05:57 Absolute Nucleated RBC 0.02 K/uL (0-0.12) 10/29/22 05:57 Nucleated RBC % (auto) 0.1 % 10/29/22 05:57 Hypogranular Neuts 1+ 10/29/22 05:57 Platelet Estimate Decreased (Normal) L 10/28/22 08:14 Giant Platelets 1+ 10/27/22 07:32 Polychromasia 1+ 10/29/22 05:57 Anisocytosis Present 10/27/22 07:32 Echinocytes 1+ 10/28/22 08:14 PT 12.0 Seconds (9.0-12.0) 10/26/22 23:25 INR 1.1 (0.9-1.1) 10/26/22 23:25 APTT 31.3 Seconds (21.0-31.0) H 10/26/22 23:25 PTT Ratio 1.1 10/26/22 23:25 Sodium 137 mmol/L (136-145) 10/29/22 05:57 Potassium 3.9 mmol/L (3.5-5.1) 10/29/22 05:57 Chloride 107 mmol/L (98-107) 10/29/22 05:57 Carbon Dioxide 24 mmol/L (21-32) 10/29/22 05:57 Anion Gap 6 (3-11) 10/29/22 05:57 BUN 27 mg/dl (6-23) H 10/29/22 05:57 Creatinine 1.07 mg/dl (0.6-1.4) 10/29/22 05:57 Est Cr Clr Drug Dosing 59.3 ml/min 10/29/22 05:57 Est GFR ( Amer) 79.4 ml/min 10/29/22 05:57 Est GFR (Non-Af Amer) 68.5 ml/min 10/29/22 05:57 BUN/Creatinine Ratio 25.2 (10-20) H 10/29/22 05:57 Glucose 107 mg/dl (70-99(Fasting)) H 10/29/22 05:57 Calcium 8.5 mg/dl (8.5-10.1) 10/29/22 05:57 Magnesium 1.8 mg/dl (1.7-2.4) 10/26/22 23:25 Total Bilirubin 0.4 mg/dl (0.2-1.0) 10/29/22 05:57 AST 15 U/L (13-39) 10/29/22 05:57 ALT 11 U/L (7-52) 10/29/22 05:57 Alkaline Phosphatase 48 U/L (34-104) 10/29/22 05:57 Total Protein 6.0 gm/dl (6.0-8.3) 10/29/22 05:57 Albumin 3.4 gm/dl (3.4-5.0) 10/29/22 05:57 Globulin 2.6 gm/dl (2.5-4.0) 10/29/22 05:57 Albumin/Globulin Ratio 1.3 (0.9-2) 10/29/22 05:57 25-OH Vitamin D Total 29.0 ng/ml (30-100) L 10/28/22 08:14 Urine Color Dark Yellow 10/27/22 09:10 Urine Appearance Cloudy (Clear) A 10/27/22 09:10 Urine pH 5.0 (4.5-7.5) 10/27/22 09:10 Ur Specific [place] 1.023 (1.000-1.030) 10/27/22 09:10 Urine Protein 1+ (Negative) H 10/27/22 09:10 Urine Glucose (UA) Negative (Negative) 10/27/22 09:10 Urine Ketones Negative (Negative) 10/27/22 09:10 Urine Blood 2+ (Negative) H 10/27/22 09:10 Urine Nitrite Negative (Negative) 10/27/22 09:10 Urine Bilirubin Negative (Negative) 10/27/22 09:10 Urine Urobilinogen Negative (Negative) 10/27/22 09:10 Ur Leukocyte Esterase Negative (Negative) 10/27/22 09:10 Urine WBC (Auto) 10-30 /hpf (0-5) H 10/27/22 09:10 Urine RBC (Auto) 10-30 /hpf (0-4) H 10/27/22 09:10 U Hyaline Cast (Auto) >30 /lpf (0-5) H 10/27/22 09:10 U Epithel Cells (Auto) >30 /lpf (0-5) H 10/27/22 09:10 Urine Bacteria (Auto) Negative (Negative) 10/27/22 09:10 Ur Renal Epithelial Cell Not Reportable 10/27/22 09:10 Granular Casts 1-5 /lpf (0) H 10/27/22 09:10 Urine Sperm Present (None Prsent) A 10/27/22 09:10 SARS-CoV-2, RNA, NAAT NEGATIVE (NEGATIVE) 10/27/22 00:28 Blood Type O Positive 10/27/22 07:32 Antibody Screen NEGATIVE 10/27/22 07:32 Crossmatch See Detail 10/27/22 07:32 Impressions Chest X-Ray 10/26/22 23:03 SINGLE VIEW CHEST CLINICAL HISTORY: Fall. FINDINGS: An AP, portable, supine chest radiograph is compared to study dated 10/18/2022 and correlated with chest CT dated 10/17/2022. The examination is degraded by portable technique and apical lordotic positioning. A 2-lead cardiac pacemaker is unchanged in position. The heart is enlarged noting atherosclerotic calcification of the thoracic aorta. The pulmonary vasculature is noncongested. Emphysema and chronic interstitial thickening is similar to previous. Scarring/atelectasis is noted at the lung bases. No airspace consolidation or large pleural effusion is identified. No pneumothorax is seen. The skeletal structures are osteopenic. The bony thorax is grossly intact. IMPRESSION: 1. Cardiomegaly and cardiac pacemaker without radiographic evidence of congestive failure. 2. Emphysema. 3. No airspace consolidation or large pleural effusion is identified. ACT 112: Negative or not required by law. Electronically signed by: Richie Freire M.D. 10/27/2022 7:21 AM Hip X-Ray 10/27/22 00:00 FL hip RT 2-3V CLINICAL HISTORY: RT TROCH NAIL COMPARISON STUDY: Right hip 10/26/2022. FLUOROSCOPY TIME: 58 seconds FLUOROSCOPY IMAGES: 4 EXPOSURE DOSE: 8.1 mGy FINDINGS: There is a right femoral intramedullary mary within interlocking femoral neck pin traversing the intertrochanteric fracture. The hardware appears intact. There is improved anatomic alignment. IMPRESSION: Fluoroscopic assistance as above. ACT 112: Negative or not required by law. Electronically signed by: Kyle Barker M.D. 10/27/2022 4:57 PM (1) Closed hip fracture Encounter type: initial encounter Laterality: right Qualified Code(s): S72.001A - Fracture of unspecified part of neck of right femur, initial encounter for closed fracture
[2022-10-29] MEDS: oxyCODONE HCL IR 5 MG TAB (IMMEDIATE RELEASE) PO PRN ×2 (14:43→20:29)
--- NOTE | 2022-10-29 16:26 | Progress Notes ---
DATE OF SERVICE: 10/29/2022. SUBJECTIVE: A 72-year-old gentleman with multiple medical comorbidities postoperative day 2 from IM nailing of a right intertrochanteric fracture. He is doing pretty well. Pain is controlled. He has been up and around some. No chest pain or shortness of breath. Not feeling dizzy or lightheaded. OBJECTIVE: VITAL SIGNS: Temperature 36.7. Vital signs are stable. GENERAL: Shows a pleasant, elderly male. He was sitting up in bed and talking on the phone when I w ent in to first see him today. EXTREMITIES: Examination of the right leg reveals the leg to be well aligned. Dressing is clean, dr y and intact. No significant drainage. He is neurologically intact. LABORATORY DATA: Hemoglobin 8.9. Hematocrit 27.5. Platelets are 62. Electrolytes are stable. ASSESSMENT: A 72-year-old gentleman with multiple medical comorbidities. Postoperative day 2 from I M nailing of a right intertrochanteric fracture. Orthopedically, he is doing well. He seems medical ly stable. PLAN: 1. DVT prophylaxis includes thigh-high TEDs and SCDs. I do not think he is a candidate for anticoag ulation due to his multiple medical issues and ITP and low platelets. 2. PT/OT, weightbear as tolerated. He can fully weightbear on this right leg. 3. Pain control, seems to be doing pretty well with pain control. 4. Medical management as per the medicine service. 5. Disposition. He is orthopedically okay for discharge any time. I need to see him back in 2-3 we eks out from surgery date. Any orthopedic questions can be directed to me at [phone]. Job ID: [id number]
--- NOTE | 2022-10-29 17:33 | Cardiology Progress Note ---
Date of Service October 29, 2022 Assessment & Plan (1) Closed hip fracture: (2) Thrombocytopenia: (3) CAD (coronary artery disease): Plan Post op Right Hip Intramedullary Nail 10/27/22. Recent NSTEMI. Recent rib fractures. 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 -Pt feeling well post op. -Not on ASA or pharm DVT prophylaxis due to his chronic thrombocytopenia. -Continue atorvastatin, diltiazem, metoprolol. -Physical therapy, increase activity as tolerated. -He has been due for an outpatient PET scan last week, which will need to be rescheduled. Admission and Anticipated Discharge Date Admission Date: October 27, 2022 Subjective Patient seen in cardiology follow-up. He is undergoing a visit with his granddaughter. He is awake and oriented. He states he walked a short distance to the bathroom in his room today. Physical Exam Constitutional: + ill appearing; no acute distress Respiratory: normal respiratory effort, lungs clear to auscultation Cardiovascular: RRR, no murmur, no edema Gastrointestinal (Abdomen): normal bowel sounds, soft, nontender, no hepatosplenomegaly Neurologic: PERRL, EOMI, accommodation nl, no face palsy, no dysarthria Results & Data ([facility]) Vital Signs (Past 12 Hours) Vital Signs Temp Pulse Resp BP Pulse Ox O2 Del Method O2 Flow Rate 10/29/22 14:30 36.7 C 77 16 112/61 94 Nasal Cannula 2 10/29/22 09:00 Nasal Cannula 2 10/29/22 07:28 36.6 C 79 16 125/72 96 Nasal Cannula 2 Laboratory Results Cardiac Enzymes 10/29/22 Range/Units 05:57 AST 15 (13-39) U/L CBC 10/29/22 Range/Units 05:57 WBC 31.17 H* (4.8-10.8) K/ul RBC 3.16 L (4.70-6.10) M/uL Hgb 8.9 L (14.0-18.0) g/dl Hct 27.5 L (42.0-52.0) % Plt Count 62 L (130-400) K/uL Neut # (Auto) 18.61 H (1.40-6.50) K/uL Lymph # (Auto) 1.25 (1.2-3.4) K/uL [place] # (Auto) 11.01 H (0.11-0.59) K/uL Eos # (Auto) 0.00 (0-0.50) K/uL Baso # (Auto) 0.04 (0-0.2) K/uL Comprehensive Metabolic Panel 10/29/22 Range/Units 05:57 Sodium 137 (136-145) mmol/L Potassium 3.9 (3.5-5.1) mmol/L Chloride 107 (98-107) mmol/L Carbon Dioxide 24 (21-32) mmol/L BUN 27 H (6-23) mg/dl Creatinine 1.07 (0.6-1.4) mg/dl Glucose 107 H (70-99(Fasting)) mg/dl Calcium 8.5 (8.5-10.1) mg/dl AST 15 (13-39) U/L ALT 11 (7-52) U/L Alkaline Phosphatase 48 (34-104) U/L Total Protein 6.0 (6.0-8.3) gm/dl Albumin 3.4 (3.4-5.0) gm/dl (1) Closed hip fracture Encounter type: initial encounter Laterality: right Qualified Code(s): S72.001A - Fracture of unspecified part of neck of right femur, initial encounter for closed fracture
[2022-10-29] MEDS: ACETAMINOPHEN 500 MG TAB PO PRN (19:53)
[2022-10-30] MEDS: oxyCODONE HCL IR 5 MG TAB (IMMEDIATE RELEASE) PO PRN ×4 (02:47→21:01)
[2022-10-30 08:35] LABS: Hemoglobin 9.5 g/dl (14.0-18.0); Mean Corpuscular Hemoglobin 27.3 pg (25.0-34.0); Mean Corpuscular Hgb Conc 31.7 g/dL (32.0-36.0); Mean Corpuscular Volume 86.2 fL (80.0-100.0); Platelet Count 93 K/uL (130-400); RDW Coefficient of Variation 20.4 % (11.5-14.5); RDW Standard Deviation 63.5 fL (36.4-46.3); Red Blood Count 3.48 M/uL (4.70-6.10)
[2022-10-30 08:49] LABS: Albumin Globulin Ratio 1.3 (0.9-2); Albumin Level 3.5 gm/dl (3.4-5.0); BUN Creatinine Ratio 23.8 (10-20); Bilirubin,Total 0.5 mg/dl (0.2-1.0); Calcium 8.8 mg/dl (8.5-10.1); Creatinine Clr Calc Pharmacy 60.4 ml/min; Est GFR (African American) 81.2 ml/min; Est GFR (Non-African American) 70.1 ml/min; Globulin 2.6 gm/dl (2.5-4.0); Potassium 3.9 mmol/L (3.5-5.1); Total Protein 6.1 gm/dl (6.0-8.3)
[2022-10-30] MEDS: PANTOprazole 40 MG TAB PO SCH (08:59)
[2022-10-30] MEDS: dilTIAZem HCL 30 MG TAB PO SCH ×2 (08:59→21:01)
[2022-10-30] MEDS: ATORVASTATIN 40 MG TAB PO SCH (09:00)
[2022-10-30] MEDS: METOPROLOL TARTRATE 50 MG TAB PO SCH ×2 (09:00→21:01)
[2022-10-30] MEDS: allopurinoL 300 MG TAB PO SCH (09:00)
[2022-10-30] MEDS: CYCLOBENZAPRINE HCL 10 MG TAB PO SCH ×2 (09:01→21:01)
[2022-10-30 09:08] LABS: Basophils # (auto) 0.02 K/uL (0-0.2); Basophils % (auto) 0.1 %; Eosinophils # (auto) 0.11 K/uL (0-0.50); Eosinophils % (auto) 0.6 %; Immature Granulocytes # (auto) 0.11 K/uL (0.01-0.20); Immature Granulocytes % (auto) 0.6 %; Lymphocytes # (auto) 1.94 K/uL (1.2-3.4); Monocytes % (auto) 30.7 %; Neutrophils # (auto) 10.02 K/uL (1.40-6.50); RBC Morphology Unremarkable
--- NOTE | 2022-10-30 10:04 | Progress Notes ---
DATE OF SERVICE: 10/30/2022. SUBJECTIVE: A 72-year-old gentleman now postop day 3 from IM nailing of a right intertrochanteric fr acture. He is doing well. Pain is manageable. No chest pain or shortness of breath. OBJECTIVE: VITAL SIGNS: Temperature 36.7. Vital signs are stable. GENERAL: Shows a thin, pleasant, elderly male. He is sitting up in bed, looks comfortable. EXTREMITIES: Examination of the right leg reveals the dressing to be clean, dry and intact. Leg is well aligned. No significant drainage. No significant swelling. He is neurologically intact. LABORATORY DATA: Pending. ASSESSMENT: A 72-year-old gentleman, postoperative day #3 from IM nailing of a right intertrochanter ic fracture, doing well orthopedically. He has got multiple medical comorbidities. PLAN: 1. DVT prophylaxis includes thigh-high TEDs and SCDs. Really not a candidate for more aggressive an ticoagulation due to his multiple medical issues especially his ITP and thrombocytopenia. 2. PT/OT. He can fully weightbear on his right leg as tolerated. 3. Pain control, doing okay with current pain regimen. 4. Medical management as per the medicine service. 5. Disposition: He is orthopedically okay for discharge any time medically stable. I need to see h im back in 2-3 weeks out from surgery. Any orthopedic questions can be directed to me at [phone]. I am going to sign off for now unless there are other issues and feel free to contact me. Job ID: [id number]
--- NOTE | 2022-10-30 11:58 | Hospitalist Progress Note ---
Date of Service October 30, 2022 Assessment & Plan (1) Closed hip fracture: Plan: Right hip fracture secondary to fall Presents with mechanical fall at home Recent admission with rib fracture Cardiology evaluated the patient; increased risks of perioperative cardiac complication due to recent NSTEMI Discussed with hematology preoperatively; transfused 2 units of platelets and dexamethasone 40 mg once before the procedure. s/p IM nailing of a right intertrochanteric fracture by Dr. Null on 10/27/2022 Anticoagulation includes thigh-high teds and SCDs. Avoid chemical prophylaxis due to a history of ITP and thrombocytopenia PT/OT. Per Ortho can weight-bear as tolerated on right leg. Continue wound care Plan to discharge to rehab. Appreciate case management assistance (2) Thrombocytopenia: (3) B-cell lymphoma: Plan: History of thrombocytopenia. Recently diagnosed B-cell lymphoma Patient was planned for PET scan prior to admission but needed to rescheduled due to the hospitalization. Oncology aware. Also, Patient is also planned to have PICC line placed after the discharged from rehab to be started on chemotherapy. 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 He is comfortably sitting up on the chair; not in any distress. No complains of fever, chills, chest pain, shortness of breath. Review of Systems Review of Systems: All systems reviewed & are unremarkable except as noted in Subjective Physical Exam Physical Exam: Constitutional: WD/WN, vitals as above, NAD, sitting up in bed, pleasant, conversing easily Respiratory: normal respiratory effort, lungs clear to auscultation, no wheeze, rales, rhonchi. Normal insp/exp effort, no accessory muscle use Cardiovascular: RRR, no murmur, no edema Vessels: no JVD or carotid bruit Chest: normal inspection of chest Abdomen: normal bowel sounds, soft, nontender, no hepatosplenomegaly Musculoskeletal: Right hip bandages intact; no soakage. Skin: no rashes, warm and dry normal turgor Neurologic: PERRL, EOMI, accommodation nl, no face palsy, no dysarthria CN's II- XI intact bilaterally and moves all extremities Psychiatric: A+Ox3, euthymic affect Lymphatic: no cervical or axillary lymphadenopathy : deferred Results & Data Results & Data ([facility]) Vital Signs (Past 12 Hours) Vital Signs Temp Pulse Resp BP Pulse Ox O2 Del Method 10/30/22 09:00 Room Air 10/30/22 07:31 36.7 C 82 16 126/74 97 Room Air Laboratory Results Laboratory Results WBC 17.60 K/ul (4.8-10.8) H 10/30/22 07:59 RBC 3.48 M/uL (4.70-6.10) L 10/30/22 07:59 Hgb 9.5 g/dl (14.0-18.0) L 10/30/22 07:59 Hct 30.0 % (42.0-52.0) L 10/30/22 07:59 MCV 86.2 fL (80.0-100.0) 10/30/22 07:59 MCH 27.3 pg (25.0-34.0) 10/30/22 07:59 MCHC 31.7 g/dL (32.0-36.0) L 10/30/22 07:59 RDW Std Deviation 63.5 fL (36.4-46.3) H 10/30/22 07:59 RDW Coeff of Efren 20.4 % (11.5-14.5) H 10/30/22 07:59 Plt Count 93 K/uL (130-400) L 10/30/22 07:59 Immature Gran % (Auto) 0.6 % 10/30/22 07:59 Neut % (Auto) 57.0 % 10/30/22 07:59 Lymph % (Auto) 11.0 % 10/30/22 07:59 [place] % (Auto) 30.7 % 10/30/22 07:59 Eos % (Auto) 0.6 % 10/30/22 07:59 Baso % (Auto) 0.1 % 10/30/22 07:59 Neut # (Auto) 10.02 K/uL (1.40-6.50) H 10/30/22 07:59 Lymph # (Auto) 1.94 K/uL (1.2-3.4) 10/30/22 07:59 [place]agher # (Auto) 5.40 K/uL (0.11-0.59) H 10/30/22 07:59 Eos # (Auto) 0.11 K/uL (0-0.50) 10/30/22 07:59 Baso # (Auto) 0.02 K/uL (0-0.2) 10/30/22 07:59 Immature Gran # (Auto) 0.11 K/uL (0.01-0.20) 10/30/22 07:59 Absolute Nucleated RBC 0.02 K/uL (0-0.12) 10/29/22 05:57 Nucleated RBC % (auto) 0.1 % 10/29/22 05:57 Hypogranular Neuts 1+ 10/29/22 05:57 Platelet Estimate Decreased (Normal) L 10/28/22 08:14 Giant Platelets 1+ 10/27/22 07:32 RBC Morphology Unremarkable 10/30/22 07:59 Polychromasia 1+ 10/29/22 05:57 Anisocytosis Present 10/27/22 07:32 Echinocytes 1+ 10/28/22 08:14 PT 12.0 Seconds (9.0-12.0) 10/26/22 23:25 INR 1.1 (0.9-1.1) 10/26/22 23:25 APTT 31.3 Seconds (21.0-31.0) H 10/26/22 23:25 PTT Ratio 1.1 10/26/22 23:25 Sodium 136 mmol/L (136-145) 10/30/22 07:59 Potassium 3.9 mmol/L (3.5-5.1) 10/30/22 07:59 Chloride 104 mmol/L (98-107) 10/30/22 07:59 Carbon Dioxide 28 mmol/L (21-32) 10/30/22 07:59 Anion Gap 4 (3-11) 10/30/22 07:59 BUN 25 mg/dl (6-23) H 10/30/22 07:59 Creatinine 1.05 mg/dl (0.6-1.4) 10/30/22 07:59 Est Cr Clr Drug Dosing 60.4 ml/min 10/30/22 07:59 Est GFR ( Amer) 81.2 ml/min 10/30/22 07:59 Est GFR (Non-Af Amer) 70.1 ml/min 10/30/22 07:59 BUN/Creatinine Ratio 23.8 (10-20) H 10/30/22 07:59 Glucose 99 mg/dl (70-99(Fasting)) 10/30/22 07:59 Calcium 8.8 mg/dl (8.5-10.1) 10/30/22 07:59 Magnesium 1.8 mg/dl (1.7-2.4) 10/26/22 23:25 Total Bilirubin 0.5 mg/dl (0.2-1.0) 10/30/22 07:59 AST 20 U/L (13-39) 10/30/22 07:59 ALT 16 U/L (7-52) 10/30/22 07:59 Alkaline Phosphatase 55 U/L (34-104) 10/30/22 07:59 Total Protein 6.1 gm/dl (6.0-8.3) 10/30/22 07:59 Albumin 3.5 gm/dl (3.4-5.0) 10/30/22 07:59 Globulin 2.6 gm/dl (2.5-4.0) 10/30/22 07:59 Albumin/Globulin Ratio 1.3 (0.9-2) 10/30/22 07:59 25-OH Vitamin D Total 29.0 ng/ml (30-100) L 10/28/22 08:14 Urine Color Dark Yellow 10/27/22 09:10 Urine Appearance Cloudy (Clear) A 10/27/22 09:10 Urine pH 5.0 (4.5-7.5) 10/27/22 09:10 Ur Specific [place] 1.023 (1.000-1.030) 10/27/22 09:10 Urine Protein 1+ (Negative) H 10/27/22 09:10 Urine Glucose (UA) Negative (Negative) 10/27/22 09:10 Urine Ketones Negative (Negative) 10/27/22 09:10 Urine Blood 2+ (Negative) H 10/27/22 09:10 Urine Nitrite Negative (Negative) 10/27/22 09:10 Urine Bilirubin Negative (Negative) 10/27/22 09:10 Urine Urobilinogen Negative (Negative) 10/27/22 09:10 Ur Leukocyte Esterase Negative (Negative) 10/27/22 09:10 Urine WBC (Auto) 10-30 /hpf (0-5) H 10/27/22 09:10 Urine RBC (Auto) 10-30 /hpf (0-4) H 10/27/22 09:10 U Hyaline Cast (Auto) >30 /lpf (0-5) H 10/27/22 09:10 U Epithel Cells (Auto) >30 /lpf (0-5) H 10/27/22 09:10 Urine Bacteria (Auto) Negative (Negative) 10/27/22 09:10 Ur Renal Epithelial Cell Not Reportable 10/27/22 09:10 Granular Casts 1-5 /lpf (0) H 10/27/22 09:10 Urine Sperm Present (None Prsent) A 10/27/22 09:10 SARS-CoV-2, RNA, NAAT NEGATIVE (NEGATIVE) 10/27/22 00:28 Blood Type O Positive 10/27/22 07:32 Antibody Screen NEGATIVE 10/27/22 07:32 Crossmatch See Detail 10/27/22 07:32 Impressions Chest X-Ray 10/26/22 23:03 SINGLE VIEW CHEST CLINICAL HISTORY: Fall. FINDINGS: An AP, portable, supine chest radiograph is compared to study dated 10/18/2022 and correlated with chest CT dated 10/17/2022. The examination is degraded by portable technique and apical lordotic positioning. A 2-lead cardiac pacemaker is unchanged in position. The heart is enlarged noting atherosclerotic calcification of the thoracic aorta. The pulmonary vasculature is noncongested. Emphysema and chronic interstitial thickening is similar to previous. Scarring/atelectasis is noted at the lung bases. No airspace consolidation or large pleural effusion is identified. No pneumothorax is seen. The skeletal structures are osteopenic. The bony thorax is grossly intact. IMPRESSION: 1. Cardiomegaly and cardiac pacemaker without radiographic evidence of congestive failure. 2. Emphysema. 3. No airspace consolidation or large pleural effusion is identified. ACT 112: Negative or not required by law. Electronically signed by: Richie Freire M.D. 10/27/2022 7:21 AM Hip X-Ray 02/01/23 00:00 FL hip RT 2-3V CLINICAL HISTORY: RT TROCH NAIL COMPARISON STUDY: Right hip 10/26/2022. FLUOROSCOPY TIME: 58 seconds FLUOROSCOPY IMAGES: 4 EXPOSURE DOSE: 8.1 mGy FINDINGS: There is a right femoral intramedullary mary within interlocking femoral neck pin traversing the intertrochanteric fracture. The hardware appears intact. There is improved anatomic alignment. IMPRESSION: Fluoroscopic assistance as above. ACT 112: Negative or not required by law. Electronically signed by: Kyle Barker M.D. 10/27/2022 4:57 PM (1) Closed hip fracture Encounter type: initial encounter Laterality: right Qualified Code(s): S72.001A - Fracture of unspecified part of neck of right femur, initial encounter for closed fracture
[2022-10-30] MEDS: ACETAMINOPHEN 500 MG TAB PO PRN (12:01)
[2022-10-30] MEDS: MoRPHine SULFATE 4 MG/ML 1 ML CARP\\VIAL IV PRN (22:33)
[2022-10-31] MEDS: oxyCODONE HCL IR 5 MG TAB (IMMEDIATE RELEASE) PO PRN ×4 (03:11→21:18)
[2022-10-31] MEDS: ACETAMINOPHEN 500 MG TAB PO PRN (07:30)
[2022-10-31] MEDS: allopurinoL 300 MG TAB PO SCH (07:30)
[2022-10-31 07:31] LABS: Albumin Globulin Ratio 1.3 (0.9-2); Albumin Level 3.6 gm/dl (3.4-5.0); BUN Creatinine Ratio 20.9 (10-20); Bilirubin,Total 0.7 mg/dl (0.2-1.0); Calcium 9.4 mg/dl (8.5-10.1); Creatinine Clr Calc Pharmacy 55.2 ml/min; Est GFR (African American) 72.8 ml/min; Est GFR (Non-African American) 62.8 ml/min; Globulin 2.8 gm/dl (2.5-4.0); Potassium 4.2 mmol/L (3.5-5.1); Total Protein 6.4 gm/dl (6.0-8.3)
[2022-10-31] MEDS: ATORVASTATIN 40 MG TAB PO SCH (07:31)
[2022-10-31] MEDS: dilTIAZem HCL 30 MG TAB PO SCH ×2 (07:31→20:12)
[2022-10-31] MEDS: PANTOprazole 40 MG TAB PO SCH (07:31)
[2022-10-31] MEDS: METOPROLOL TARTRATE 50 MG TAB PO SCH ×2 (07:31→20:12)
[2022-10-31] MEDS: CYCLOBENZAPRINE HCL 10 MG TAB PO SCH ×2 (07:31→20:12)
[2022-10-31 08:00] LABS: Basophils # (auto) 0.01 K/uL (0-0.2); Eosinophils # (auto) 0.12 K/uL (0-0.50); Eosinophils % (auto) 0.6 %; Hematocrit (blood only) 31.3 % (42.0-52.0); Hemoglobin 10.2 g/dl (14.0-18.0); Immature Granulocytes # (auto) 0.24 K/uL (0.01-0.20); Immature Granulocytes % (auto) 1.2 %; Lymphocytes % (auto) 12.4 %; Mean Corpuscular Hemoglobin 27.1 pg (25.0-34.0); Mean Corpuscular Hgb Conc 32.6 g/dL (32.0-36.0); Mean Corpuscular Volume 83.2 fL (80.0-100.0); Monocytes # (auto) 8.84 K/uL (0.11-0.59); Monocytes % (auto) 43.9 %; Neutrophils # (auto) 8.42 K/uL (1.40-6.50); Neutrophils % (auto) 41.9 %; Platelet Count 112 K/uL (130-400); RBC Morphology Unremarkable; RDW Coefficient of Variation 19.9 % (11.5-14.5); RDW Standard Deviation 59.9 fL (36.4-46.3); Red Blood Count 3.76 M/uL (4.70-6.10); White Blood Count 20.13 K/ul (4.8-10.8)
--- NOTE | 2022-10-31 12:14 | Hospitalist Progress Note ---
Date of Service October 31, 2022 Assessment & Plan (1) Closed hip fracture: Plan: Right hip fracture secondary to fall Presents with mechanical fall at home Recent admission with rib fracture Cardiology evaluated the patient; increased risks of perioperative cardiac complication due to recent NSTEMI Discussed with hematology preoperatively; transfused 2 units of platelets and dexamethasone 40 mg once before the procedure. s/p IM nailing of a right intertrochanteric fracture by Dr. Null on 10/27/2022 Anticoagulation includes thigh-high teds and SCDs. Avoid chemical prophylaxis due to a history of ITP and thrombocytopenia PT/OT. Per Ortho can weight-bear as tolerated on right leg. Continue wound care Plan to discharge to rehab. Patient accepted at [facility] for acute rehab. Discussed with patient and regarding transfer to the facility today. Patient does not want to go today. Physical therapy also spoke with the patient and reiterated importance of going to rehab for early mobility. Despite extensive discussion, patient did not want to go and did not specify any reasons for not wanting to go. He says that he wants to go tomorrow. (2) Thrombocytopenia: (3) B-cell lymphoma: Plan: History of thrombocytopenia. Recently diagnosed B-cell lymphoma Patient was planned for PET scan prior to admission but needed to rescheduled due to the hospitalization. Oncology aware. Also, Patient is also planned to have PICC line placed after the discharged from rehab to be started on chemotherapy. (4) Tachy-boris syndrome: Plan: Status post pacemaker On Cardizem, rhythm control for PSVT (5) COPD (chronic obstructive pulmonary disease): Plan: Continue home inhalers (6) Dyslipidemia: Plan: Continue on Lipitor Plan DVT prophylaxis SCDs DNR/DNI Admission and Anticipated Discharge Date Admission Date: October 27, 2022 Subjective Patient seen and examined at bedside. He denies any fever, chills, chest pain, shortness of breath. Patient accepted at [facility] for acute rehab. Discussed with patient and regarding transfer to the facility today. Patient does not want to go today. Physical therapy also spoke with the patient and reiterated importance of going to rehab for early mobility. Despite extensive discussion, patient did not want to go and did not specify any reasons for not wanting to go. He says that he wants to go tomorrow. Review of Systems Review of Systems: All systems reviewed & are unremarkable except as noted in Subjective Physical Exam Physical Exam: Constitutional: WD/WN, vitals as above, NAD, sitting up in bed, pleasant, conversing easily Respiratory: normal respiratory effort, lungs clear to auscultation, no wheeze, rales, rhonchi. Normal insp/exp effort, no accessory muscle use Cardiovascular: RRR, no murmur, no edema Vessels: no JVD or carotid bruit Chest: normal inspection of chest Abdomen: normal bowel sounds, soft, nontender, no hepatosplenomegaly Musculoskeletal: Right hip bandages intact; no soakage. Skin: no rashes, warm and dry normal turgor Neurologic: PERRL, EOMI, accommodation nl, no face palsy, no dysarthria CN's II- XI intact bilaterally and moves all extremities Psychiatric: A+Ox3, euthymic affect Lymphatic: no cervical or axillary lymphadenopathy : deferred Results & Data Results & Data ([facility]) Vital Signs (Past 12 Hours) Vital Signs Temp Pulse Resp BP Pulse Ox O2 Del Method 10/31/22 08:10 Room Air 10/31/22 09:31 82 16 112/72 94 Room Air 10/31/22 07:26 98 H 18 109/68 94 Room Air 10/31/22 07:04 36.8 C 103 H 16 99/46 L 91 Room Air Laboratory Results Laboratory Results WBC 20.13 K/ul (4.8-10.8) H 10/31/22 06:37 RBC 3.76 M/uL (4.70-6.10) L 10/31/22 06:37 Hgb 10.2 g/dl (14.0-18.0) L 10/31/22 06:37 Hct 31.3 % (42.0-52.0) L 10/31/22 06:37 MCV 83.2 fL (80.0-100.0) 10/31/22 06:37 MCH 27.1 pg (25.0-34.0) 10/31/22 06:37 MCHC 32.6 g/dL (32.0-36.0) 10/31/22 06:37 RDW Std Deviation 59.9 fL (36.4-46.3) H 10/31/22 06:37 RDW Coeff of Efren 19.9 % (11.5-14.5) H 10/31/22 06:37 Plt Count 112 K/uL (130-400) L 10/31/22 06:37 Immature Gran % (Auto) 1.2 % 10/31/22 06:37 Neut % (Auto) 41.9 % 10/31/22 06:37 Lymph % (Auto) 12.4 % 10/31/22 06:37 Cross % (Auto) 43.9 % 10/31/22 06:37 Eos % (Auto) 0.6 % 10/31/22 06:37 Baso % (Auto) 0.0 % 10/31/22 06:37 Neut # (Auto) 8.42 K/uL (1.40-6.50) H 10/31/22 06:37 Lymph # (Auto) 2.50 K/uL (1.2-3.4) 10/31/22 06:37 Cross # (Auto) 8.84 K/uL (0.11-0.59) H 10/31/22 06:37 Eos # (Auto) 0.12 K/uL (0-0.50) 10/31/22 06:37 Baso # (Auto) 0.01 K/uL (0-0.2) 10/31/22 06:37 Immature Gran # (Auto) 0.24 K/uL (0.01-0.20) H 10/31/22 06:37 Absolute Nucleated RBC 0.02 K/uL (0-0.12) 10/29/22 05:57 Nucleated RBC % (auto) 0.1 % 10/29/22 05:57 Hypogranular Neuts 1+ 10/29/22 05:57 Platelet Estimate Decreased (Normal) L 10/28/22 08:14 Giant Platelets 1+ 10/27/22 07:32 RBC Morphology Unremarkable 10/31/22 06:37 Polychromasia 1+ 10/29/22 05:57 Anisocytosis Present 10/27/22 07:32 Echinocytes 1+ 10/28/22 08:14 PT 12.0 Seconds (9.0-12.0) 10/26/22 23:25 INR 1.1 (0.9-1.1) 10/26/22 23:25 APTT 31.3 Seconds (21.0-31.0) H 10/26/22 23:25 PTT Ratio 1.1 10/26/22 23:25 Sodium 135 mmol/L (136-145) L 10/31/22 06:37 Potassium 4.2 mmol/L (3.5-5.1) 10/31/22 06:37 Chloride 101 mmol/L (98-107) 10/31/22 06:37 Carbon Dioxide 30 mmol/L (21-32) 10/31/22 06:37 Anion Gap 4 (3-11) 10/31/22 06:37 BUN 24 mg/dl (6-23) H 10/31/22 06:37 Creatinine 1.15 mg/dl (0.6-1.4) 10/31/22 06:37 Est Cr Clr Drug Dosing 55.2 ml/min 10/31/22 06:37 Est GFR ( Amer) 72.8 ml/min 10/31/22 06:37 Est GFR (Non-Af Amer) 62.8 ml/min 10/31/22 06:37 BUN/Creatinine Ratio 20.9 (10-20) H 10/31/22 06:37 Glucose 104 mg/dl (70-99(Fasting)) H 10/31/22 06:37 Calcium 9.4 mg/dl (8.5-10.1) 10/31/22 06:37 Magnesium 1.8 mg/dl (1.7-2.4) 10/26/22 23:25 Total Bilirubin 0.7 mg/dl (0.2-1.0) 10/31/22 06:37 AST 19 U/L (13-39) 10/31/22 06:37 ALT 18 U/L (7-52) 10/31/22 06:37 Alkaline Phosphatase 58 U/L (34-104) 10/31/22 06:37 Total Protein 6.4 gm/dl (6.0-8.3) 10/31/22 06:37 Albumin 3.6 gm/dl (3.4-5.0) 10/31/22 06:37 Globulin 2.8 gm/dl (2.5-4.0) 10/31/22 06:37 Albumin/Globulin Ratio 1.3 (0.9-2) 10/31/22 06:37 25-OH Vitamin D Total 29.0 ng/ml (30-100) L 10/28/22 08:14 Urine Color Dark Yellow 10/27/22 09:10 Urine Appearance Cloudy (Clear) A 10/27/22 09:10 Urine pH 5.0 (4.5-7.5) 10/27/22 09:10 Ur Specific [place] 1.023 (1.000-1.030) 10/27/22 09:10 Urine Protein 1+ (Negative) H 10/27/22 09:10 Urine Glucose (UA) Negative (Negative) 10/27/22 09:10 Urine Ketones Negative (Negative) 10/27/22 09:10 Urine Blood 2+ (Negative) H 10/27/22 09:10 Urine Nitrite Negative (Negative) 10/27/22 09:10 Urine Bilirubin Negative (Negative) 10/27/22 09:10 Urine Urobilinogen Negative (Negative) 10/27/22 09:10 Ur Leukocyte Esterase Negative (Negative) 10/27/22 09:10 Urine WBC (Auto) 10-30 /hpf (0-5) H 10/27/22 09:10 Urine RBC (Auto) 10-30 /hpf (0-4) H 10/27/22 09:10 U Hyaline Cast (Auto) >30 /lpf (0-5) H 10/27/22 09:10 U Epithel Cells (Auto) >30 /lpf (0-5) H 10/27/22 09:10 Urine Bacteria (Auto) Negative (Negative) 10/27/22 09:10 Ur Renal Epithelial Cell Not Reportable 10/27/22 09:10 Granular Casts 1-5 /lpf (0) H 10/27/22 09:10 Urine Sperm Present (None Prsent) A 10/27/22 09:10 SARS-CoV-2, RNA, NAAT NEGATIVE (NEGATIVE) 10/27/22 00:28 Blood Type O Positive 10/27/22 07:32 Antibody Screen NEGATIVE 10/27/22 07:32 Crossmatch See Detail 10/27/22 07:32 Impressions Chest X-Ray 10/26/22 23:03 SINGLE VIEW CHEST CLINICAL HISTORY: Fall. FINDINGS: An AP, portable, supine chest radiograph is compared to study dated 10/18/2022 and correlated with chest CT dated 10/17/2022. The examination is degraded by portable technique and apical lordotic positioning. A 2-lead cardiac pacemaker is unchanged in position. The heart is enlarged noting atherosclerotic calcification of the thoracic aorta. The pulmonary vasculature is noncongested. Emphysema and chronic interstitial thickening is similar to previous. Scarring/atelectasis is noted at the lung bases. No airspace consolidation or large pleural effusion is identified. No pneumothorax is seen. The skeletal structures are osteopenic. The bony thorax is grossly intact. IMPRESSION: 1. Cardiomegaly and cardiac pacemaker without radiographic evidence of congestive failure. 2. Emphysema. 3. No airspace consolidation or large pleural effusion is identified. ACT 112: Negative or not required by law. Electronically signed by: Richie Freire M.D. 10/27/2022 7:21 AM Hip X-Ray 10/27/22 00:00 FL hip RT 2-3V CLINICAL HISTORY: RT TROCH NAIL COMPARISON STUDY: Right hip 10/26/2022. FLUOROSCOPY TIME: 58 seconds FLUOROSCOPY IMAGES: 4 EXPOSURE DOSE: 8.1 mGy FINDINGS: There is a right femoral intramedullary mary within interlocking femoral neck pin traversing the intertrochanteric fracture. The hardware appears intact. There is improved anatomic alignment. IMPRESSION: Fluoroscopic assistance as above. ACT 112: Negative or not required by law. Electronically signed by: Kyle Barker M.D. 10/27/2022 4:57 PM (1) Closed hip fracture Encounter type: initial encounter Laterality: right Qualified Code(s): S72.001A - Fracture of unspecified part of neck of right femur, initial encounter for closed fracture
[2022-11-01] MEDS: oxyCODONE HCL IR 5 MG TAB (IMMEDIATE RELEASE) PO PRN ×4 (04:22→21:44)
[2022-11-01] MEDS: ACETAMINOPHEN 500 MG TAB PO PRN ×2 (04:22→13:54)
[2022-11-01 06:35] LABS: Hematocrit (blood only) 29.2 % (42.0-52.0); Hemoglobin 9.6 g/dl (14.0-18.0); Mean Corpuscular Hemoglobin 27.2 pg (25.0-34.0); Mean Corpuscular Hgb Conc 32.9 g/dL (32.0-36.0); Mean Corpuscular Volume 82.7 fL (80.0-100.0); Platelet Count 110 K/uL (130-400); RDW Coefficient of Variation 19.9 % (11.5-14.5); RDW Standard Deviation 58.5 fL (36.4-46.3); Red Blood Count 3.53 M/uL (4.70-6.10); White Blood Count 22.72 K/ul (4.8-10.8)
[2022-11-01 06:50] LABS: Albumin Globulin Ratio 1.3 (0.9-2); Albumin Level 3.4 gm/dl (3.4-5.0); BUN Creatinine Ratio 26.5 (10-20); Bilirubin,Total 0.9 mg/dl (0.2-1.0); Calcium 8.8 mg/dl (8.5-10.1); Creatinine Clr Calc Pharmacy 56.2 ml/min; Est GFR (African American) 74.3 ml/min; Est GFR (Non-African American) 64.1 ml/min; Globulin 2.6 gm/dl (2.5-4.0); Potassium 3.7 mmol/L (3.5-5.1)
[2022-11-01 06:51] LABS: Hypogranular Neutrophils 2+
[2022-11-01 07:01] LABS: Anisocytosis Present; Basophils # (auto) 0.02 K/uL (0-0.2); Basophils % (auto) 0.1 %; Eosinophils # (auto) 0.08 K/uL (0-0.50); Eosinophils % (auto) 0.4 %; Giant Platelets 1+; Hypogranular Neutrophils 2+; Immature Granulocytes # (auto) 0.12 K/uL (0.01-0.20); Immature Granulocytes % (auto) 0.5 %; Lymphocytes # (auto) 1.41 K/uL (1.2-3.4); Lymphocytes % (auto) 6.2 %; Monocytes # (auto) 9.71 K/uL (0.11-0.59); Monocytes % (auto) 42.7 %; Neutrophils # (auto) 11.38 K/uL (1.40-6.50); Neutrophils % (auto) 50.1 %
[2022-11-01 07:31] LABS: Hypogranular Neutrophils 2+
[2022-11-01] MEDS: PANTOprazole 40 MG TAB PO SCH (08:53)
[2022-11-01] MEDS: allopurinoL 300 MG TAB PO SCH (08:54)
[2022-11-01] MEDS: ATORVASTATIN 40 MG TAB PO SCH (08:54)
[2022-11-01] MEDS: CYCLOBENZAPRINE HCL 10 MG TAB PO SCH ×2 (08:54→21:36)
[2022-11-01] MEDS ORDERED: SODIUM CHLORIDE 0.9% 500 ML IV SCH (09:45)
[2022-11-01] MEDS: dilTIAZem HCL 30 MG TAB PO SCH ×2 (11:51→21:34)
[2022-11-01] MEDS: METOPROLOL TARTRATE 50 MG TAB PO SCH ×2 (11:51→21:34)
--- NOTE | 2022-11-01 14:01 | Hospitalist Progress Note ---
Date of Service November 01, 2022 Assessment & Plan (1) Closed hip fracture: Plan: Right hip fracture secondary to fall Presents with mechanical fall at home Recent admission with rib fracture 10/12-10/20/22 Cardiology evaluated the patient; increased risks of perioperative cardiac complication due to recent NSTEMI Discussed with hematology preoperatively; transfused 2 units of platelets and dexamethasone 40 mg once before the procedure. s/p IM nailing of a right intertrochanteric fracture by Dr. Null on 10/27/2022 Anticoagulation includes thigh-high teds and SCDs. Avoid chemical prophylaxis due to a history of ITP and thrombocytopenia PT/OT. Per Ortho can weight-bear as tolerated on right leg. Continue wound care Plan to discharge to rehab. Patient accepted at [facility] for acute rehab. Discussed with patient and regarding transfer to the facility today; however due to patients blood pressure being on lower side we are going to treat with IVF and hope to discharge patient tomorrow. Low Blood pressure SBP in 90s today Lopressor and dilt held this a.m. s/p IVF, will monitor q4h no apparent sign of infection pt with elevated wbc; however known b cell lymphoma (2) Thrombocytopenia: (3) B-cell lymphoma: Plan: History of thrombocytopenia Recently diagnosed B-cell lymphoma Patient was planned for PET scan prior to admission but needed to rescheduled due to the hospitalization. Oncology aware. Also, Patient is also planned to have PICC line placed after the discharged from rehab to be started on chemotherapy. 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 Benton, please see addendum A total of 35 minutes were spent with greater than 50% of that time face to face with the patient, personally reviewing all current laboratories, imaging studies, past medication reconciliation, outpatient chart review, and discussion with specialists to collaborate care for the patient with attending. Please see attending documentation for corrections and/or additions. Admission and Anticipated Discharge Date Admission Date: October 27, 2022 Supervising Physician Co-Signing Physician Notes Attending addendum The patient was seen and examined in medical floor in presence of the He has been noted to be tachycardic with low blood pressure today Denies any symptoms in bed Has been weak and little dizzy with ambulation Will not be discharged today On examination Lying in bed comfortably Low blood pressure at systolic 70/43 once standing with tachycardia at 108 Chest-clear to auscultation bilaterally Heart-S1, S2. Tachycardic Abdomen-benign Extremities-negative for any edema His labs and electrolytes noted He is a status post right hip fixation with history of B-cell lymphoma Noted to have low blood pressure today on Cardizem and metoprolol We will decrease the dose of metoprolol to 25 mg in the morning and continue with 50 mg at night We will give IV fluid Monitor blood pressure Agree with assessment plan as outlined above by Mihaela Benton Subjective Patient seen and examined in 385-1. Follow up R hip fracture. Pt and family at bedside reports low BP this morning. He denies dizzy/lightheaded but hasn't been out of bed. He is having a lot of R leg pain specifically R ankle pain where he had prior metal placed. He denies f/c/s, chest pain, sob, cough, n/v/d. Overall poor oral intake per family at bedside. She has been trying to encourage him to drink protein shakes. He will drink coke. Review of Systems Review of Systems: All systems reviewed & are unremarkable except as noted in HPI & below Physical Exam Physical Exam: Gen: Thin, M, appears older than stated age, lying in bed, NAD, A&O x3 HEENT: Normocephalic, atraumatic, conjunctivae moist, sclerae anicteric, mucous membranes moist. Lung: Clear to Auscultation bilaterally, no wheezes/rales/rhonchi Heart: Regular rate, regular rhythm, no murmurs, rubs, or gallops Abdomen: Soft, NT, ND +BS x 4 Extremities: R lateral hip incision dressing CDI, no erythema, swelling to ankle, decreased ROM Skin: Warm, no rash, negative turgor. Results & Data Results & Data ([facility]) Vital Signs (Past 12 Hours) Vital Signs Temp Pulse Resp BP Pulse Ox O2 Del Method 11/01/22 07:33 36.5 C 93 H 18 95/53 L 94 Room Air Laboratory Results Short CBC 11/01/22 Range/Units 05:56 WBC 22.72 H (4.8-10.8) K/ul Hgb 9.6 L (14.0-18.0) g/dl Hct 29.2 L (42.0-52.0) % Plt Count 110 L (130-400) K/uL BMP 11/01/22 05:56 Sodium 134 L Potassium 3.7 Chloride 100 Carbon Dioxide 26 BUN 30 H Creatinine 1.13 Glucose 121 H Calcium 8.8 Liver Function 11/01/22 Range/Units 05:56 Total Bilirubin 0.9 (0.2-1.0) mg/dl AST 12 L (13-39) U/L ALT 12 (7-52) U/L Alkaline Phosphatase 51 (34-104) U/L Albumin 3.4 (3.4-5.0) gm/dl Medications Administered Current Inpatient Medications Acetaminophen (Acetaminophen 500 Mg Tab) 500 mg PO Q6H PRN PRN Reason: Pain Stop: 11/26/22 02:53 Last Admin: 11/01/22 13:54 Dose: 500 mg Albuterol (Albuterol Hfa 8 Gm Inhaler) 1 puffs INH QID PRN PRN Reason: sob Stop: 11/26/22 18:27 Albuterol (Albut/Ipratrop 3mg/0.5mg Neb 3 Ml Vial) 3 ml NEB QIDR PRN; Protocol PRN Reason: Shortness Of Breath Or Wheezing Stop: 11/26/22 18:59 Allopurinol (Allopurinol 300 Mg Tab) 300 mg PO QAM [facility] Stop: 11/26/22 08:59 Last Admin: 11/01/22 08:54 Dose: 300 mg Atorvastatin Calcium (Atorvastatin 40 Mg Tab) 40 mg PO QAM [facility] Stop: 11/27/22 08:59 Last Admin: 11/01/22 08:54 Dose: 40 mg Bisacodyl (Bisacodyl 10 Mg Supp) 10 mg MD DAILY PRN PRN Reason: Constipation Stop: 11/26/22 02:53 Cyclobenzaprine HCl (Cyclobenzaprine Hcl 10 Mg Tab) 10 mg PO BID [facility] Stop: 11/26/22 08:59 Last Admin: 11/01/22 08:54 Dose: 10 mg Diltiazem HCl (Diltiazem Hcl 30 Mg Tab) 30 mg PO BID [facility] Stop: 11/26/22 08:59 Last Admin: 11/01/22 11:51 Dose: Not Given Sodium Chloride (Nss) 500 mls @ 100 mls/hr IV .Q5H [facility] Stop: 11/01/22 14:44 Last Admin: 11/01/22 09:49 Dose: 100 mls/hr Ipratropium [place] (Ipratropium [place] Neb Soln 0.02% 2.5 Ml Vial) 0.5 mg INH Q4H PRN PRN Reason: sob wheeze Stop: 11/26/22 02:53 Levalbuterol HCl (Levalbuterol 1.25mg/0.5ml Neb) 1.25 mg INH Q4H PRN PRN Reason: sob/wheeze Stop: 11/26/22 02:53 Magnesium Hydroxide (Magnesium Hydroxide Susp 30 Ml Udc) 30 ml PO DAILY PRN PRN Reason: Constipation Stop: 11/26/22 02:53 Metoprolol Tartrate (Metoprolol Tartrate 50 Mg Tab) 50 mg PO BID [facility] Stop: 11/26/22 08:59 Last Admin: 11/01/22 11:51 Dose: Not Given Morphine Sulfate (Morphine Sulfate 4 Mg/Ml 1 Ml Carp\Vial) 4 mg IV Q4H PRN PRN Reason: Pain Stop: 11/10/22 01:05 Last Admin: 10/30/22 22:33 Dose: 4 mg Naloxone HCl (Naloxone Hcl 0.4 Mg/1 Ml Vial/Carp) 0.1 mg IV UD PRN PRN Reason: Opiate Overdose Stop: 11/26/22 02:53 Ondansetron HCl (Ondansetron 4 Mg Od Tab) 4 mg PO Q6H PRN PRN Reason: Nausea Stop: 11/26/22 18:27 Last Admin: 10/29/22 12:53 Dose: 4 mg Oxycodone HCl (Oxycodone Hcl Ir 5 Mg Tab (Immediate Release)) 5 - 10 mg PO QID PRN PRN Reason: Pain Stop: 11/10/22 01:05 Last Admin: 11/01/22 09:54 Dose: 10 mg Pantoprazole Sodium (Pantoprazole 40 Mg Tab) 40 mg PO QAM [facility] Stop: 11/26/22 08:59 Last Admin: 11/01/22 08:53 Dose: 40 mg Polyethylene Glycol (Polyethylene (Miralax) 17 Gm Pack) 17 gm PO QAM PRN PRN Reason: Constipation Stop: 11/26/22 18:27 (1) Closed hip fracture Encounter type: initial encounter Laterality: right Qualified Code(s): S72.001A - Fracture of unspecified part of neck of right femur, initial encounter for closed fracture
[2022-11-01] MEDS: SODIUM CHLORIDE 0.9% 1000ML 1,000 ML IV SCH (15:21)
[2022-11-02] MEDS: SODIUM CHLORIDE 0.9% 1000ML 1,000 ML IV SCH ×2 (01:56→12:35)
[2022-11-02] MEDS: oxyCODONE HCL IR 5 MG TAB (IMMEDIATE RELEASE) PO PRN ×3 (06:37→18:26)
[2022-11-02 07:45] LABS: Anisocytosis Present; Basophils # (auto) 0.01 K/uL (0-0.2); Basophils % (auto) 0.1 %; Eosinophils # (auto) 0.07 K/uL (0-0.50); Eosinophils % (auto) 0.4 %; Hematocrit (blood only) 28.2 % (42.0-52.0); Hemoglobin 9.1 g/dl (14.0-18.0); Immature Granulocytes % (auto) 0.6 %; Lymphocytes # (auto) 1.19 K/uL (1.2-3.4); Mean Corpuscular Hemoglobin 27.6 pg (25.0-34.0); Mean Corpuscular Hgb Conc 32.3 g/dL (32.0-36.0); Mean Corpuscular Volume 85.5 fL (80.0-100.0); Monocytes # (auto) 6.61 K/uL (0.11-0.59); Monocytes % (auto) 38.6 %; Neutrophils # (auto) 9.14 K/uL (1.40-6.50); Neutrophils % (auto) 53.3 %; Platelet Count 102 K/uL (130-400); RDW Coefficient of Variation 19.8 % (11.5-14.5); RDW Standard Deviation 60.8 fL (36.4-46.3); White Blood Count 17.12 K/ul (4.8-10.8)
[2022-11-02 07:46] LABS: BUN Creatinine Ratio 29.8 (10-20); Calcium 8.7 mg/dl (8.5-10.1); Est GFR (African American) 82.2 ml/min; Est GFR (Non-African American) 70.9 ml/min; Potassium 3.7 mmol/L (3.5-5.1)
[2022-11-02] MEDS: ATORVASTATIN 40 MG TAB PO SCH (09:04)
[2022-11-02] MEDS: PANTOprazole 40 MG TAB PO SCH (09:04)
[2022-11-02] MEDS: CYCLOBENZAPRINE HCL 10 MG TAB PO SCH ×2 (09:04→20:11)
[2022-11-02] MEDS: allopurinoL 300 MG TAB PO SCH (09:04)
[2022-11-02] MEDS: METOPROLOL TARTRATE 50 MG TAB PO SCH ×2 (09:26→20:11)
[2022-11-02] MEDS: dilTIAZem HCL 30 MG TAB PO SCH ×2 (09:26→20:11)
[2022-11-02] MEDS: ACETAMINOPHEN 500 MG TAB PO PRN (15:09)
--- NOTE | 2022-11-02 15:27 | Hospitalist Progress Note ---
Date of Service November 02, 2022 Assessment & Plan (1) Closed hip fracture: Plan: Right hip fracture secondary to fall Presents with mechanical fall at home Recent admission with rib fracture 10/12-10/20/22 Cardiology evaluated the patient; increased risks of perioperative cardiac complication due to recent NSTEMI Discussed with hematology preoperatively; transfused 2 units of platelets and dexamethasone 40 mg once before the procedure. s/p IM nailing of a right intertrochanteric fracture by Dr. Null on 10/27/2022 Anticoagulation includes thigh-high teds and SCDs. Avoid chemical prophylaxis due to a history of ITP and thrombocytopenia PT/OT. Per Ortho can weight-bear as tolerated on right leg. Continue wound care Plan to discharge to rehab. Patient accepted at [facility] for acute rehab. Discussed with patient and regarding transfer to the facility today; however due to patients blood pressure being on lower side we are going to treat with IVF and hope to discharge patient tomorrow. Low Blood pressure ( on 11/01/22) SBP were in 90s +orthostasis s/p IVF BP improving, 127/76 pt encouraged to hydrate but poor intake per and staff continue to monitor (2) Thrombocytopenia: (3) B-cell lymphoma: Plan: History of thrombocytopenia Recently diagnosed B-cell lymphoma Patient was planned for PET scan prior to admission but needed to rescheduled due to the hospitalization. Oncology aware. Also, Patient is also planned to have PICC line placed after the discharged from rehab to be started on chemotherapy. 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 Benton, please see addendum A total of 35 minutes were spent with greater than 50% of that time face to face with the patient, personally reviewing all current laboratories, imaging studies, past medication reconciliation, outpatient chart review, and discussion with specialists to collaborate care for the patient with attending. Please see attending documentation for corrections and/or additions. Pt stable for discharge today Family insistent on [facility] but per CM no beds available possibly all week, [facility] awaiting to hear back Admission and Anticipated Discharge Date Admission Date: October 27, 2022 Supervising Physician Co-Signing Physician Notes Attending addendum The patient was seen and examined in the medical floor in presence of the He has been feeling better but he still complains of pain in the leg mostly the right ankle His blood pressure remains stable On examination No apparent distress at rest Hemodynamically stable Chest-decreased breath sound both bases Heart-S1, S2. Regular Abdomen-benign Extremities-negative for any edema His labs, medications and imaging studies reviewed Remains stable following right hip repair Remote history of right ankle repair which is causing most pain now Will need pain medication Medically stable to be discharged Awaiting placement Patient and the want to go to [facility] Agree with assessment and plan as outlined above by Mihaela Benton Subjective Patient seen and examined in 385-1. Follow up R hip fracture. Pt states he feels unwell due to back pain and ankle pain. Hip feels generally well. Continues with poor intake and motivation per staff. BP improving with IVF. Denies cp, sob, n/v/d, abd pain. Review of Systems Review of Systems: All systems reviewed & are unremarkable except as noted in HPI & below Physical Exam Physical Exam: Gen: Thin, fraile, M, appears older than stated age, lying in bed, NAD, A&O x3 HEENT: Normocephalic, atraumatic, conjunctivae moist, sclerae anicteric, mucous membranes moist. Neck: fixed node to palpation supramandibular/anterior cervical chain Lung: Clear to Auscultation bilaterally, no wheezes/rales/rhonchi Heart: Regular rate, regular rhythm, no murmurs, rubs, or gallops Abdomen: Soft, NT, ND +BS x 4 Extremities: R lateral hip incision dressing CDI, no erythema, swelling to ankle, decreased ROM Skin: Warm, no rash, negative turgor. Results & Data Results & Data ([facility]) Vital Signs (Past 12 Hours) Vital Signs Temp Pulse Resp BP Pulse Ox O2 Del Method 11/02/22 10:39 87 18 97 Room Air 11/02/22 08:44 98 H 93 Room Air 11/02/22 07:43 36.7 C 100 H 17 127/76 92 Room Air Laboratory Results Short CBC 11/02/22 Range/Units 06:50 WBC 17.12 H (4.8-10.8) K/ul Hgb 9.1 L (14.0-18.0) g/dl Hct 28.2 L (42.0-52.0) % Plt Count 102 L (130-400) K/uL [facility] 11/02/22 06:50 Sodium 137 Potassium 3.7 Chloride 103 Carbon Dioxide 25 BUN 31 H Creatinine 1.04 Glucose 101 H Calcium 8.7 Medications Administered Current Inpatient Medications Acetaminophen (Acetaminophen 500 Mg Tab) 500 mg PO Q6H PRN PRN Reason: Pain Stop: 11/26/22 02:53 Last Admin: 11/02/22 15:09 Dose: 500 mg Albuterol (Albuterol Hfa 8 Gm Inhaler) 1 puffs INH QID PRN PRN Reason: sob Stop: 11/26/22 18:27 Albuterol (Albut/Ipratrop 3mg/0.5mg Neb 3 Ml Vial) 3 ml NEB QIDR PRN; Protocol PRN Reason: Shortness Of Breath Or Wheezing Stop: 11/26/22 18:59 Allopurinol (Allopurinol 300 Mg Tab) 300 mg PO QAM [facility] Stop: 11/26/22 08:59 Last Admin: 11/02/22 09:04 Dose: 300 mg Atorvastatin Calcium (Atorvastatin 40 Mg Tab) 40 mg PO QAM [facility] Stop: 11/27/22 08:59 Last Admin: 11/02/22 09:04 Dose: 40 mg Bisacodyl (Bisacodyl 10 Mg Supp) 10 mg NM DAILY PRN PRN Reason: Constipation Stop: 11/26/22 02:53 Cyclobenzaprine HCl (Cyclobenzaprine Hcl 10 Mg Tab) 10 mg PO BID [facility] Stop: 11/26/22 08:59 Last Admin: 11/02/22 09:04 Dose: 10 mg Diltiazem HCl (Diltiazem Hcl 30 Mg Tab) 30 mg PO BID [facility] Stop: 11/26/22 08:59 Last Admin: 11/02/22 09:26 Dose: 30 mg Sodium Chloride (Nss 1000ml) 1,000 mls @ 100 mls/hr IV .Q10H [facility] Stop: 11/02/22 21:14 Last Admin: 11/02/22 12:35 Dose: 100 mls/hr Ipratropium [place] (Ipratropium [place] Neb Soln 0.02% 2.5 Ml Vial) 0.5 mg INH Q4H PRN PRN Reason: sob wheeze Stop: 11/26/22 02:53 Levalbuterol HCl (Levalbuterol 1.25mg/0.5ml Neb) 1.25 mg INH Q4H PRN PRN Reason: sob/wheeze Stop: 11/26/22 02:53 Magnesium Hydroxide (Magnesium Hydroxide Susp 30 Ml Udc) 30 ml PO DAILY PRN PRN Reason: Constipation Stop: 11/26/22 02:53 Metoprolol Tartrate (Metoprolol Tartrate 50 Mg Tab) 50 mg PO BID [facility] Stop: 11/26/22 08:59 Last Admin: 11/02/22 09:26 Dose: 50 mg Morphine Sulfate (Morphine Sulfate 4 Mg/Ml 1 Ml Carp\Vial) 4 mg IV Q4H PRN PRN Reason: Pain Stop: 11/10/22 01:05 Last Admin: 10/30/22 22:33 Dose: 4 mg Naloxone HCl (Naloxone Hcl 0.4 Mg/1 Ml Vial/Carp) 0.1 mg IV UD PRN PRN Reason: Opiate Overdose Stop: 11/26/22 02:53 Ondansetron HCl (Ondansetron 4 Mg Od Tab) 4 mg PO Q6H PRN PRN Reason: Nausea Stop: 11/26/22 18:27 Last Admin: 10/29/22 12:53 Dose: 4 mg Oxycodone HCl (Oxycodone Hcl Ir 5 Mg Tab (Immediate Release)) 5 - 10 mg PO QID PRN PRN Reason: Pain Stop: 11/10/22 01:05 Last Admin: 11/02/22 12:33 Dose: 10 mg Pantoprazole Sodium (Pantoprazole 40 Mg Tab) 40 mg PO QAM [facility] Stop: 11/26/22 08:59 Last Admin: 11/02/22 09:04 Dose: 40 mg Polyethylene Glycol (Polyethylene (Miralax) 17 Gm Pack) 17 gm PO QAM PRN PRN Reason: Constipation Stop: 11/26/22 18:27 (1) Closed hip fracture Encounter type: initial encounter Laterality: right Qualified Code(s): S72.001A - Fracture of unspecified part of neck of right femur, initial encounter for closed fracture
[2022-11-03] MEDS: oxyCODONE HCL IR 5 MG TAB (IMMEDIATE RELEASE) PO PRN ×3 (06:19→19:55)
[2022-11-03 07:21] LABS: Hematocrit (blood only) 27.4 % (42.0-52.0); Mean Corpuscular Hemoglobin 27.4 pg (25.0-34.0); Mean Corpuscular Hgb Conc 32.8 g/dL (32.0-36.0); Mean Corpuscular Volume 83.5 fL (80.0-100.0); Platelet Count 100 K/uL (130-400); RDW Coefficient of Variation 19.9 % (11.5-14.5); RDW Standard Deviation 59.2 fL (36.4-46.3); Red Blood Count 3.28 M/uL (4.70-6.10); White Blood Count 17.16 K/ul (4.8-10.8)
[2022-11-03 07:38] LABS: Basophils # (auto) 0.01 K/uL (0-0.2); Basophils % (auto) 0.1 %; Eosinophils % (auto) 0.6 %; Giant Platelets 1+; Hypogranular Neutrophils 1+; Immature Granulocytes # (auto) 0.09 K/uL (0.01-0.20); Immature Granulocytes % (auto) 0.5 %; Lymphocytes # (auto) 1.42 K/uL (1.2-3.4); Lymphocytes % (auto) 8.3 %; Monocytes # (auto) 7.11 K/uL (0.11-0.59); Monocytes % (auto) 41.4 %; Neutrophils # (auto) 8.43 K/uL (1.40-6.50); Neutrophils % (auto) 49.1 %; Polychromasia 1+
[2022-11-03] MEDS: CYCLOBENZAPRINE HCL 10 MG TAB PO SCH ×2 (08:22→19:50)
[2022-11-03] MEDS: dilTIAZem HCL 30 MG TAB PO SCH ×2 (08:23→19:50)
[2022-11-03] MEDS: ATORVASTATIN 40 MG TAB PO SCH (08:23)
[2022-11-03] MEDS: PANTOprazole 40 MG TAB PO SCH (08:23)
[2022-11-03] MEDS: allopurinoL 300 MG TAB PO SCH (08:23)
[2022-11-03] MEDS: METOPROLOL TARTRATE 50 MG TAB PO SCH ×2 (08:23→19:50)
[2022-11-03] MEDS: ACETAMINOPHEN 500 MG TAB PO PRN (09:40)
--- NOTE | 2022-11-03 14:31 | Hospitalist Progress Note ---
Date of Service November 03, 2022 Assessment & Plan (1) Closed hip fracture: Plan: Right hip fracture secondary to fall Presents with mechanical fall at home Recent admission with rib fracture 10/12-10/20/22 Cardiology evaluated the patient; increased risks of perioperative cardiac complication due to recent NSTEMI Discussed with hematology preoperatively; transfused 2 units of platelets and dexamethasone 40 mg once before the procedure. s/p IM nailing of a right intertrochanteric fracture by Dr. Null on 10/27/2022 Anticoagulation includes thigh-high teds and SCDs. Avoid chemical prophylaxis due to a history of ITP and thrombocytopenia PT/OT. Per Ortho can weight-bear as tolerated on right leg. Continue wound care Plan to discharge to rehab. Patient accepted at [facility] for acute rehab. doesn't feel pt can perform 3hrs of rehab; therefore looking for subacute placement Low Blood pressure ( on 11/01/22) SBP were in 90s +orthostasis s/p IVF x 3.5L BP stable pt encouraged to hydrate but poor intake per and staff continue to monitor R ankle pain pt with h/o previous repair will obtain xray (2) Thrombocytopenia: (3) B-cell lymphoma: Plan: History of thrombocytopenia Recently diagnosed B-cell lymphoma Patient was planned for PET scan prior to admission but needed to rescheduled due to the hospitalization. Oncology aware. Also, Patient is also planned to have PICC line placed after the discharged from rehab to be started on chemotherapy. Follows with DR. 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 Benton, please see addendum A total of 35 minutes were spent with greater than 50% of that time face to face with the patient, personally reviewing all current laboratories, imaging studies, past medication reconciliation, outpatient chart review, and discussion with specialists to collaborate care for the patient with attending. Please see attending documentation for corrections and/or additions. Pt stable for discharge Family insistent on [facility] but per CM no beds available possibly all week, other [facility] have been sent Admission and Anticipated Discharge Date Admission Date: October 27, 2022 Supervising Physician Co-Signing Physician Notes Attending addendum The patient was seen and examined in medical floor He complains to pain mostly in the right ankle Remain generally weak but hemodynamically stable Denies any other significant symptoms On examination Distress due to right ankle pain Hemodynamically stable Chest-clear to auscultate bilaterally Heart-S1, S2 regular Abdomen-benign Extremities-right ankle swelling and status post surgery His labs and imaging studies reviewed We will get an x-ray of the right ankle Status post right hip surgery Remains medically stable to be transferred and awaiting to go to [facility] Agree with assessment plan as outlined above by Mihaela Benton Subjective Patient seen and examined in 385-1. Follow up R hip fracture. Pt states he feels unwell due to back pain and ankle pain. Hip feels generally well. Continues with poor intake and motivation per staff. BP improving with IVF. Denies cp, sob, n/v/d, abd pain. Physical Exam Physical Exam: Gen: Thin, fraile, M, appears older than stated age, lying in bed, NAD, A&O x3 HEENT: Normocephalic, atraumatic, conjunctivae moist, sclerae anicteric, mucous membranes moist. Neck: fixed node to palpation supramandibular/anterior cervical chain Lung: Clear to Auscultation bilaterally, no wheezes/rales/rhonchi Heart: Regular rate, regular rhythm, no murmurs, rubs, or gallops Abdomen: Soft, NT, ND +BS x 4 Extremities: R lateral hip incision dressing CDI, no erythema, swelling to ankle, decreased ROM Skin: Warm, no rash, negative turgor. Results & Data Results & Data ([facility]) Vital Signs (Past 12 Hours) Vital Signs Temp Pulse Resp BP BP Pulse Ox O2 Del Method 11/03/22 14:18 36.9 C 88 18 117/76 90 Room Air 11/03/22 11:22 36.6 C 91 H 16 98/57 L 92 Room Air 11/03/22 10:25 Room Air 11/03/22 07:31 37.1 C 98 H 18 115/64 92 Room Air (1) Closed hip fracture Encounter type: initial encounter Laterality: right Qualified Code(s): S72.001A - Fracture of unspecified part of neck of right femur, initial encounter for closed fracture
--- NOTE | 2022-11-03 15:25 | XRay Report ---
RIGHT ANKLE 2 VIEWS CLINICAL HISTORY: Right ankle pain. FINDINGS: AP and crosstable lateral views of the right ankle are compared to study dated 01/05/2022. T he skeletal structures are heterogeneously osteopenic. There is no radiographic evidence of acute fra cture. Chronic posttraumatic deformity is noted in the distal tibia and fibula. There are buttress pl ates along the lateral cortex of the distal fibula and the medial cortex of the distal tibial which a re transfixed by numerous cortical lag screws. The orthopedic hardware appears intact. Degenerative c hange is noted at the ankle mortise. The overlying soft tissues are atrophic. There is atheroscleroti c calcification of the regional arteries. IMPRESSION: Osteopenia with chronic posttraumatic and postoperative changes as above. No acute bony a bnormality is seen. Electronically signed by: Richie Freire M.D. 11/03/2022 3:23 PM
[2022-11-04] MEDS: oxyCODONE HCL IR 5 MG TAB (IMMEDIATE RELEASE) PO PRN ×3 (05:07→18:01)
[2022-11-04] MEDS: ACETAMINOPHEN 500 MG TAB PO PRN ×2 (06:14→14:32)
[2022-11-04] MEDS: CYCLOBENZAPRINE HCL 10 MG TAB PO SCH ×2 (07:51→21:35)
[2022-11-04] MEDS: dilTIAZem HCL 30 MG TAB PO SCH ×2 (07:51→21:36)
[2022-11-04] MEDS: PANTOprazole 40 MG TAB PO SCH (07:51)
[2022-11-04] MEDS: METOPROLOL TARTRATE 50 MG TAB PO SCH ×2 (07:51→21:36)
[2022-11-04] MEDS: ATORVASTATIN 40 MG TAB PO SCH (07:51)
[2022-11-04] MEDS: allopurinoL 300 MG TAB PO SCH (07:51)
[2022-11-04 08:58] LABS: Basophils # (auto) 0.01 K/uL (0-0.2); Basophils % (auto) 0.1 %; Eosinophils # (auto) 0.07 K/uL (0-0.50); Eosinophils % (auto) 0.4 %; Hematocrit (blood only) 27.5 % (42.0-52.0); Hemoglobin 8.9 g/dl (14.0-18.0); Immature Granulocytes # (auto) 0.14 K/uL (0.01-0.20); Immature Granulocytes % (auto) 0.8 %; Lymphocytes # (auto) 0.94 K/uL (1.2-3.4); Lymphocytes % (auto) 5.3 %; Mean Corpuscular Hemoglobin 27.3 pg (25.0-34.0); Mean Corpuscular Hgb Conc 32.4 g/dL (32.0-36.0); Mean Corpuscular Volume 84.4 fL (80.0-100.0); Monocytes # (auto) 6.44 K/uL (0.11-0.59); Monocytes % (auto) 36.4 %; Neutrophils # (auto) 10.07 K/uL (1.40-6.50); Platelet Count 115 K/uL (130-400); RDW Coefficient of Variation 19.8 % (11.5-14.5); RDW Standard Deviation 59.7 fL (36.4-46.3); Red Blood Count 3.26 M/uL (4.70-6.10); White Blood Count 17.67 K/ul (4.8-10.8)
--- NOTE | 2022-11-04 13:18 | Hospitalist Progress Note ---
Date of Service November 04, 2022 Assessment & Plan (1) Closed hip fracture: Plan: Right hip fracture secondary to fall Presents with mechanical fall at home Recent admission with rib fracture 10/12-10/20/22 Cardiology evaluated the patient; increased risks of perioperative cardiac complication due to recent NSTEMI Discussed with hematology preoperatively; transfused 2 units of platelets and dexamethasone 40 mg once before the procedure. S/p IM nailing of a right intertrochanteric fracture by Dr. Null on 10/27/2022 Anticoagulation includes thigh-high teds and SCDs. Avoid chemical prophylaxis due to a history of ITP and thrombocytopenia PT/OT. Per Ortho can weight-bear as tolerated on right leg. Continue wound care Plan to discharge to rehab. Patient accepted at [facility] for acute rehab. doesn't feel pt can perform 3hrs of rehab; therefore looking for subacute placement Low Blood pressure -> improved +orthostasis on 11/01/22 s/p IVF x 3.5L BP improved and no longer receiving IV fluids but still with intermittent hypotension. Continue to encourage PO hydration but h/o poor intake Will repeat orthostatics today Considering starting midodrine 2.5 TID to help prevent falls per Dr. Campos. Currently on diltiazem and metoprolol for SVT and need to be continued R ankle pain pt with h/o previous repair will obtain xray - osteopenia with chronic posttraumatic and postoperative changes as above. No acute bony abnormality is seen Continue PRN tylenol, consider further discussion with ortho at post-op follow up (2) Thrombocytopenia: (3) B-cell lymphoma: Plan: History of thrombocytopenia Recently diagnosed B-cell lymphoma Patient was planned for PET scan prior to admission but needed to rescheduled due to the hospitalization. Oncology aware Also, Patient is also planned to have PICC line placed after the discharged from rehab to be started on chemotherapy Follows with Dr. 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 Benton, please see addendum A total of 35 minutes were spent with greater than 50% of that time face to face with the patient, personally reviewing all current laboratories, imaging studies, past medication reconciliation, outpatient chart review, and discussion with specialists to collaborate care for the patient with attending. Please see attending documentation for corrections and/or additions. Pt stable for discharge Family insistent on [facility] but per CM no beds available possibly all week, other auths have been sent Admission and Anticipated Discharge Date Admission Date: October 27, 2022 Supervising Physician Co-Signing Physician Notes Attending addendum: The patient was seen and examined in medical floor in presence of the Remains generally weak and lethargic and gets a little dizzy with ambulation Orthostasis symptoms with positive On examination Lying in bed comfortably Hemodynamically stable with BP 120/68 Standing BP drops to 85 Chestclear HeartS1-S2, regular Abdomenbenign His labs and imaging studies reviewed Has significant orthostasis Will start midodrine as per form grader 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 Feeling generally well without any new complaints overnight. Feeling weak but not necessarily any worse than before. at bedside wishes patient would participate more with therapy. BP improving with IVF. Denies cp, sob, n/v/d, abd pain. Last bowel movement 11/03/22. Review of Systems Review of Systems: As per HPI, all other systems reviewed and negative Physical Exam Physical Exam: Gen: Elderly male, appears older than stated age, lying in bed, NAD, A&O x3 HEENT: Normocephalic, atraumatic, conjunctivae moist, sclerae anicteric, mucous membranes moist Lung: Clear to Auscultation bilaterally, no wheezes/rales/rhonchi Heart: Regular rate, regular rhythm, no murmurs, rubs, or gallops Abdomen: Soft, NT, ND +BS x 4 Extremities: R lateral hip incision dressing CDI, no erythema, swelling to ankle, decreased ROM Skin: Warm, no rash Results & Data Results & Data ([facility]) Vital Signs (Past 12 Hours) Vital Signs Temp Pulse Resp BP Pulse Ox O2 Del Method 11/04/22 10:37 Room Air 11/04/22 07:29 36.7 C 99 H 17 120/68 95 Room Air Laboratory Results Short CBC 11/04/22 Range/Units 07:15 WBC 17.67 H (4.8-10.8) K/ul Hgb 8.9 L (14.0-18.0) g/dl Hct 27.5 L (42.0-52.0) % Plt Count 115 L (130-400) K/uL Diagnostic Findings Chest X-Ray 10/26/22 23:03 SINGLE VIEW CHEST CLINICAL HISTORY: Fall. FINDINGS: An AP, portable, supine chest radiograph is compared to study dated 10/18/2022 and correlated with chest CT dated 10/17/2022. The examination is degraded by portable technique and apical lordotic positioning. A 2-lead cardiac pacemaker is unchanged in position. The heart is enlarged noting atherosclerotic calcification of the thoracic aorta. The pulmonary vasculature is noncongested. Emphysema and chronic interstitial thickening is similar to previous. Scarring/atelectasis is noted at the lung bases. No airspace consolidation or large pleural effusion is identified. No pneumothorax is seen. The skeletal structures are osteopenic. The bony thorax is grossly intact. IMPRESSION: 1. Cardiomegaly and cardiac pacemaker without radiographic evidence of congestive failure. 2. Emphysema. 3. No airspace consolidation or large pleural effusion is identified. ACT 112: Negative or not required by law. Electronically signed by: Richie Freire M.D. 10/27/2022 7:21 AM Hip X-Ray 10/26/22 23:03 RIGHT HIP 2 VIEWS CLINICAL HISTORY: Fall with right hip injury. FINDINGS: AP and crosstable lateral views of the right hip compared to study dated 10/16/2022. The skeletal structures are osteopenic. There is a mildly displaced fracture through the neck and intertrochanteric region of the right femur. Overlying soft tissue edema is noted. The visualized right hemipelvis appears intact. Postsurgical change is partially visualized in the left proximal femur. Moderate arthritic change and joint space narrowing is seen in the right hip. Degenerative sclerosis is noted in the sacroiliac joints. Lumbosacral spondylosis is partially visualized. IMPRESSION: Fracture of the right proximal femur as above. Electronically signed by: Richie Freire M.D. 10/27/2022 7:23 AM Hip X-Ray 10/27/22 00:00 FL hip RT 2-3V CLINICAL HISTORY: RT TROCH NAIL COMPARISON STUDY: Right hip 10/26/2022. FLUOROSCOPY TIME: 58 seconds FLUOROSCOPY IMAGES: 4 EXPOSURE DOSE: 8.1 mGy FINDINGS: There is a right femoral intramedullary mary within interlocking femoral neck pin traversing the intertrochanteric fracture. The hardware appears intact. There is improved anatomic alignment. IMPRESSION: Fluoroscopic assistance as above. ACT 112: Negative or not required by law. Electronically signed by: Kyle Barker M.D. 10/27/2022 4:57 PM Ankle X-Ray 11/03/22 14:40 RIGHT ANKLE 2 VIEWS CLINICAL HISTORY: Right ankle pain. FINDINGS: AP and crosstable lateral views of the right ankle are compared to study dated 01/05/2022. The skeletal structures are heterogeneously osteopenic. There is no radiographic evidence of acute fracture. Chronic posttraumatic deformity is noted in the distal tibia and fibula. There are buttress plates along the lateral cortex of the distal fibula and the medial cortex of the distal tibial which are transfixed by numerous cortical lag screws. The orthopedic hardware appears intact. Degenerative change is noted at the ankle mortise. The overlying soft tissues are atrophic. There is atherosclerotic calcification of the regional arteries. IMPRESSION: Osteopenia with chronic posttraumatic and postoperative changes as above. No acute bony abnormality is seen. Electronically signed by: Richie Freire M.D. 11/03/2022 3:23 PM (1) Closed hip fracture Encounter type: initial encounter Laterality: right Qualified Code(s): S72.001A - Fracture of unspecified part of neck of right femur, initial encounter for closed fracture
[2022-11-04 15:05] LABS: Calcium 8.9 mg/dl (8.5-10.1); Potassium 3.5 mmol/L (3.5-5.1)
[2022-11-04 15:10] LABS: BUN Creatinine Ratio 23.6 (10-20); Creatinine Clr Calc Pharmacy 59.9 ml/min; Est GFR (African American) 80.3 ml/min; Est GFR (Non-African American) 69.3 ml/min
[2022-11-04] MEDS: MIDODRINE HCL 2.5 MG TAB PO SCH (17:47)
[2022-11-05] MEDS: dilTIAZem HCL 30 MG TAB PO SCH (07:54)
[2022-11-05] MEDS: METOPROLOL TARTRATE 50 MG TAB PO SCH (07:54)
[2022-11-05] MEDS: allopurinoL 300 MG TAB PO SCH (07:55)
[2022-11-05] MEDS: PANTOprazole 40 MG TAB PO SCH (07:55)
[2022-11-05] MEDS: ATORVASTATIN 40 MG TAB PO SCH (07:55)
[2022-11-05] MEDS: CYCLOBENZAPRINE HCL 10 MG TAB PO SCH (07:55)
[2022-11-05] MEDS: oxyCODONE HCL IR 5 MG TAB (IMMEDIATE RELEASE) PO PRN ×2 (07:59→12:20)
[2022-11-05] MEDS ORDERED: CEROVITE ADV FORMULA TAB PO SCH (09:00)
[2022-11-05] MEDS ORDERED: MEGESTROL ACETATE 40 MG TAB PO SCH (09:00)
[2022-11-05] MEDS: MIDODRINE HCL 2.5 MG TAB PO SCH ×2 (09:17→13:42)
[2022-11-05] MEDS ORDERED: CARBAMIDE PEROXIDE 6.5% 15 ML BTL OTR PRN (10:56)
[2022-11-05] MEDS: ACETAMINOPHEN 500 MG TAB PO PRN (11:09)
--- NOTE | 2022-11-05 14:23 | Discharge Summary ---
Discharge Summary Date of Service November 05, 2022 Notes For Next Care Provider Medically complex patient admitted for hip fracture 2 fall and underwent IM nailing of a right intertrochanteric fracture by Dr. Null on 10/27/2022. Follow up with Dr. Rojas for rescheduled PET scan in the future. Will need PICC line placed per Isela once discharged from SNF to begin chemotherapy. Increase water intake. Started on midodrine per cardiology to support BP and hopefully prevent falls. Monitor BP at SNF and adjust accordingly Started on multivitamin and megestrol to help improve overall nutrition/ appetite stimulation. Follow up with PCP, orthopedic surgery, oncology, cardiology. Medication Changes From Visit Midodrine 2.5mg TID Megestrol 40mg daily Short course oxycodone PRN for severe pain Admission HPI Per Admitting Provider History obtained from patient, family, and records. 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 Troponin elevation attributed to NSTEMI, Medical management recommended by cardiology. Patient slipped at home last night subsequently falling on his right side. Some head trauma without LOC. No chest pain, no unusual SOB. Achy right hip pain and inability to get up. Patient brought by EMS to ER. SURGERIES: Shoulder surgery, left hip surgery, L zygoma surgery, FAMILY HISTORY: Hypertension, lung CA PERSONAL SOCIAL HISTORY: Half pack daily, no chronic intake of alcoholic beverages. 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 Admission Exam Per Admitting Provider GENERAL: uncomfortable, no respiratory distress SKIN: Pallor, warm HEENT: Pale palpebral conjunctivae, no ptosis, dry buccal mucosa NECK : Supple, no tenderness CHEST : Decreased breath sounds, no tenderness HEART : RRR, no obvious murmurs ABDOMEN: Some distention, nontender EXTREMITIES : No LE swelling, right hip tenderness NEUROLOGIC : Coherent, no facial asymmetry, gait and stance not assessed Principal Dx & Hospital Course #1 = Principal Diagnosis (1) Closed hip fracture: (2) Thrombocytopenia: (3) B-cell lymphoma: (4) Tachy-boris syndrome: (5) COPD (chronic obstructive pulmonary disease): (6) Dyslipidemia: Plan This is a 72yo M with PMH significant for SSS status post PPM, hypertension, valvular heart disease (mild MR/TR), AAA, PAD, COPD, HCV cirrhosis, 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 Underwent IM nailing of a right intertrochanteric fracture by Dr. Null on 10/27/2022. Anticoagulation includes thigh-high teds and SCDs but have avoided chemical prophylaxis due to a history of ITP and thrombocytopenia. Cardiology and hematology were consulted to evaluate the patient pre-operatively due to recent history of NSTEMI and was given platelets prior to procedure. Patient will continue PT/OT at short term rehab and then follow up with orthopedics in clinic as scheduled. While admitted, patient noted to have issues with hypotension. Orthostatics were positive on multiple occasions despite administration of IV fluids. Patient with poor p.o. intake at baseline despite encouragement to increase hydration. Per discussion with Dr. Campos, will trial patient on midodrine 2.5 3 times daily in an effort to maintain blood pressure and prevent future falls. Patient to continue diltiazem and metoprolol for SVT. Patient endorsing right ankle pain during admission with history of remote injury status post repair. X-ray demonstrates osteopenia with chronic posttraumatic and postoperative changes but no acute abnormality seen. Continue as needed Tylenol, consider supportive compression sleeve for ankle and follow-up with orthopedic service as needed. Patient was recently diagnosed with B-cell lymphoma and is due for PET scan. Oncology is aware of this. Patient also needs to have PICC line placed after discharge from rehab so that he may start on chemotherapy. Follows with Dr. Rojas for heme/onc. During admission, patient thin with limited p.o. intake or appetite. Noted a multivitamin to optimize nutritional status. Also started on Megace daily to stimulate appetite. Earlier today, patient complaining that he is having difficulty hearing during discussions and felt that right ear was clogged. Notable wax buildup on otoscope exam and started on Debrox drops to be continued at SNF. Patient comfortable and clear on plan details. Patient to follow-up with orthopedic service and then PCP and cardiology at time of discharge from SNF. Comfortable and he medically stable at time of discharge. Discharge Exam Gen: Elderly male, appears older than stated age,sitting in bedside chair, NAD, A&O x3 HEENT: Normocephalic, atraumatic, conjunctivae moist, sclerae anicteric, mucous membranes moist, R ear with pearly shin TM, non-bulging, no erythema.+ significant wax visualized Lung: Clear to Auscultation bilaterally, no wheezes/rales/rhonchi Heart: Regular rate, regular rhythm, no murmurs, rubs, or gallops Abdomen: Soft, NT, ND +BS x 4 Extremities: R lateral hip incision dressing CDI, no erythema, swelling to ankle, decreased ROM Skin: Warm, no rash Updated Medication List Medication Instructions Recorded Confirmed Type oxycodone 5 mg tablet 5 mg PO Q6H #20 tabs 10/20/22 10/26/22 Rx acetaminophen 500 mg tablet 500 mg PO Q6H PRN Pain #60 tabs 11/05/22 Rx albuterol sulfate 90 mcg/actuation 1 inh inhalation QID PRN sob #6.7 11/05/22 Rx aerosol inhaler grams allopurinol 300 mg tablet 300 mg PO QAM #30 tabs 11/05/22 Rx atorvastatin 40 mg tablet 40 mg PO QAM #30 tabs 11/05/22 Rx carbamide peroxide 6.5 % ear drops 5 drp OTR BID PRN earwax #15 mL 11/05/22 Rx (Ear Drops (carbamide peroxide)) cyclobenzaprine 10 mg tablet 10 mg PO BID #60 tabs 11/05/22 Rx diltiazem HCl 30 mg tablet 30 mg PO BID #60 tabs 11/05/22 Rx (Cardizem) megestrol 40 mg tablet 40 mg PO QAM #30 tabs 11/05/22 Rx metoprolol tartrate 50 mg tablet 50 mg PO BID #60 tabs 11/05/22 Rx (Lopressor) midodrine 2.5 mg tablet 2.5 mg PO TID@0800,1200,1700 #90 11/05/22 Rx tabs ajexhyfe-dtp-gvqjj acid 0.4 1 tab PO QAM #30 tabs 11/05/22 Rx mg-lycopene 300 mcg-lutein 250 mcg tablet ([employer]) ondansetron 4 mg disintegrating 4 mg PO Q8H PRN Nausea #10 tabs 11/05/22 Rx tablet oxycodone 5 mg tablet 5 mg PO Q6H PRN severe pain (scale 11/05/22 Rx score 7-10) #12 tabs pantoprazole 40 mg tablet,delayed 40 mg PO QAM #30 tabs 11/05/22 Rx release (Protonix) polyethylene glycol 3350 17 gram 17 g PO QAM PRN Constipation #14 ea 11/05/22 Rx oral powder packet (Miralax) Hospital Stay Data Consultations 10/27/22 00:12 ED Decision to Admit Stat 10/27/22 01:33 Consult Orthopedic Surgery Routine 10/27/22 08:49 Consult Cardiology Routine Procedures Performed Operation Date: 10/27/22 12:20 Actual Procedures p Right Hip Intramedullary Nail(Right) - Rigoberto Null MD Diagnostic Imagining Performed 10/27/22 FL hip RT 2-3V Routine Pending Results Patient Have Any Pending Studies at Discharge: No Discharge Instructions Given to Patient (Per Discharging Provider) You were admitted to the hospital with right hip fracture after a fall. Your event surgery by Dr. Null on October 27, 2022. Please continue physical therapy and Occupational Therapy while at the rehab. You may bear weight on right leg as tolerated. For pain control; use Tylenol for mild pain. Use oxycodone 5mg for moderate to severe pain. Please apply thigh-high teds and SCDs to prevent DVT at the rehab. You are not on any blood thinner and antiplatelet agent due to your low platelet count. You need to follow-up with orthopedic in 2 to 3 weeks. Any orthopedic question can be directed to Dr. Null at [phone]. Your oncologist was informed regarding it the admission; you will have rescheduled PET scan in the future. Patient was supposed to have PICC line placed as per Isela. Please coordinate with the rehab facility upon discharge to have it placed. You need to follow-up with her primary care doctor in 1 week. He will also need to follow-up with your oncologist. Drink 64oz of water daily. Encourage daily protein shakes. Started on Midodrine 3x/day to support blood pressure. Please continue to monitor BP in out-patient setting and adjust as needed. Follow-up with card iology once discharged home. Started on multivitamin and megestrol to help improve overall nutrition/ appetite stimulation. Total Time Total Time Spent Total Time Spent (In Minutes): 80
== END 2022-11-05 16:50 | DRG 480 ==
LOC: ED 22:32 → 3N 10-27 01:31 → SUATTDRO 10-27 01:31 → 3N 10-27 02:05

== ENCOUNTER 2022-11-18 10:39 | Inpatient (IN) ==
[2022-11-18] MEDS ORDERED: MAGNESIUM HYDROXIDE SUSP 30 ML UDC PO PRN (11:55)
[2022-11-18] MEDS ORDERED: ACETAMINOPHEN 325 MG TAB PO PRN (11:55)
[2022-11-18] MEDS ORDERED: POLYETHYLENE (MIRALAX) 17 GM PACK PO PRN (11:55)
[2022-11-18] MEDS ORDERED: ONDANSETRON INJ 2 MG/ML 2 ML VIAL IV PRN (11:55)
[2022-11-18] MEDS ORDERED: ALUMINUM/MAGNESIUM SUSP 30 ML UDC PO PRN (11:55)
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
[2022-11-18] MEDS ORDERED: ALBUTEROL HFA 8 GM INHALER INH PRN (14:13)
[2022-11-18] MEDS: oxyCODONE HCL IR 5 MG TAB (IMMEDIATE RELEASE) PO PRN ×2 (15:02→21:07)
[2022-11-18 15:12] LABS: Albumin Globulin Ratio 1.4 (0.9-2); Albumin Level 3.9 gm/dl (3.4-5.0); BUN Creatinine Ratio 25.2 (10-20); Bilirubin,Total 0.7 mg/dl (0.2-1.0); Calcium 9.2 mg/dl (8.5-10.1); Est GFR (African American) 62.2 ml/min; Est GFR (Non-African American) 53.6 ml/min; Globulin 2.8 gm/dl (2.5-4.0); Magnesium 1.9 mg/dl (1.7-2.4); Phosphorus 3.7 mg/dl (2.5-4.9); Potassium 3.8 mmol/L (3.5-5.1); Total Protein 6.7 gm/dl (6.0-8.3); Uric Acid 2.7 mg/dl (2.6-7.2)
[2022-11-18 15:22] LABS: Hematocrit (blood only) 31.9 % (42.0-52.0); Mean Corpuscular Hemoglobin 27.2 pg (25.0-34.0); Mean Corpuscular Hgb Conc 31.3 g/dL (32.0-36.0); Mean Corpuscular Volume 86.9 fL (80.0-100.0); Platelet Count 83 K/uL (130-400); RDW Coefficient of Variation 21.3 % (11.5-14.5); RDW Standard Deviation 63.7 fL (36.4-46.3); Red Blood Count 3.67 M/uL (4.70-6.10)
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
[2022-11-18 15:55] LABS: Basophils # (auto) 0.03 K/uL (0-0.2); Basophils % (auto) 0.1 %; Eosinophils % (auto) 0.3 %; Immature Granulocytes # (auto) 0.34 K/uL (0.01-0.20); Immature Granulocytes % (auto) 1.1 %; Lymphocytes # (auto) 2.37 K/uL (1.2-3.4); Lymphocytes % (auto) 7.5 %; Monocytes # (auto) 8.45 K/uL (0.11-0.59); Monocytes % (auto) 26.6 %; Neutrophils # (auto) 20.51 K/uL (1.40-6.50); Neutrophils % (auto) 64.4 %
[2022-11-18] MEDS ORDERED: [UNRECOGNIZED DRUG - OTHER] IV PRN (16:15)
[2022-11-18] MEDS ORDERED: [UNRECOGNIZED DRUG - OTHER] IV PRN (16:15)
[2022-11-18] MEDS ORDERED: [UNRECOGNIZED DRUG - MIXTURE] IV PRN (16:15)
[2022-11-18] MEDS ORDERED: ACETAMINOPHEN 325 MG TAB PO SCH (17:00)
[2022-11-18] MEDS ORDERED: SODIUM CHLORIDE 0.9% IV SCH ×3 (17:00→19:30)
[2022-11-18] MEDS ORDERED: diphenhydrAMINE Capsule 25 MG CAP PO SCH (17:00)
[2022-11-18] MEDS ORDERED: RITUXIMAB IV SCH ×3 (17:00→19:30)
[2022-11-18] MEDS ORDERED: dexAMETHasone 20 MG in DEXTROSE 5% 25 ML IV SCH (17:00)
--- NOTE | 2022-11-18 17:04 | XRay Report ---
SINGLE VIEW CHEST CLINICAL HISTORY: PICC placement. FINDINGS: An AP, portable, upright chest radiograph is compared to study dated 10/26/2022 and correlat ed with chest CT dated 10/17/2022. The examination is degraded by portable technique and apical lordot ic positioning. A 2-lead cardiac pacemaker is unchanged in position. A right PICC line has been place d. The tip projects over the cavoatrial junction. The heart is enlarged noting atherosclerotic calcif ication of the thoracic aorta. The pulmonary vasculature is noncongested. Emphysema and chronic inter stitial thickening is similar to previous. Mild scarring/atelectasis is noted at the lung bases. The lungs and pleural spaces are otherwise clear. No pneumothorax is seen. The skeletal structures are os teopenic. The bony thorax is grossly intact. IMPRESSION: 1. A right PICC line has been placed as above. 2. Cardiomegaly and cardiac pacemaker without radiographic evidence of congestive failure. 3. Emphysema. 4. No airspace consolidation or large pleural effusion is identified ACT 112: Negative or not required by law. Electronically signed by: Richie Freire M.D. 11/18/2022 5:02 PM
--- NOTE | 2022-11-18 17:12 | Electrocardiogram Report ---
Test Reason : Blood Pressure : / mmHG Vent. Rate : 075 BPM Atrial Rate : 075 BPM P-R Int : 152 ms QRS Dur : 088 ms QT Int : 408 ms P-R-T Axes : 047 -12 -47 degrees QTc Int : 455 ms Normal sinus rhythm Inferior-posterior infarct (cited on or before 27-OCT-2022) T wave inversions concerning for ischemia Abnormal ECG When compared with ECG of 27-OCT-2022 09:22, Premature atrial complexes are no longer Present Left anterior fascicular block is no longer Present Inverted T waves have replaced nonspecific T wave abnormality in Inferior leads Nonspecific T wave abnormality, improved in Anterior leads Confirmed by Jeremiah Aleman ([id number]) on 11/18/2022 5:12:03 PM Referred By: Niyah Rojas Confirmed By:Fabricio Aleman
[2022-11-18] MEDS ORDERED: dexAMETHasone 4 MG TAB PO SCH (18:00)
[2022-11-18] MEDS: MIDODRINE HCL 2.5 MG TAB PO SCH (18:16)
[2022-11-18] MEDS: MELATONIN 3 MG TAB PO PRN (21:07)
[2022-11-18] MEDS: METOPROLOL TARTRATE 50 MG TAB PO SCH (21:08)
[2022-11-18] MEDS: dilTIAZem HCL 30 MG TAB PO SCH (21:08)
[2022-11-19] MEDS: oxyCODONE HCL IR 5 MG TAB (IMMEDIATE RELEASE) PO PRN ×4 (06:01→23:35)
[2022-11-19 06:54] LABS: Phosphorus 5.8 mg/dl (2.5-4.9)
[2022-11-19 06:57] LABS: Hematocrit (blood only) 30.3 % (42.0-52.0); Hemoglobin 9.6 g/dl (14.0-18.0); Mean Corpuscular Hemoglobin 27.3 pg (25.0-34.0); Mean Corpuscular Hgb Conc 31.7 g/dL (32.0-36.0); Mean Corpuscular Volume 86.1 fL (80.0-100.0); Nucleated RBC # (auto) 0.04 K/uL (0-0.12); Nucleated RBC % (auto) 0.1 %; Platelet Count 68 K/uL (130-400); RDW Coefficient of Variation 21.8 % (11.5-14.5); RDW Standard Deviation 64.5 fL (36.4-46.3); Red Blood Count 3.52 M/uL (4.70-6.10); White Blood Count 30.81 K/ul (4.8-10.8)
[2022-11-19 07:29] LABS: Anisocytosis Present; Basophils # (auto) 0.04 K/uL (0-0.2); Basophils % (auto) 0.1 %; Eosinophils # (auto) 0.01 K/uL (0-0.50); Hypogranular Neutrophils 2+; Immature Granulocytes # (auto) 0.52 K/uL (0.01-0.20); Immature Granulocytes % (auto) 1.7 %; Lymphocytes # (auto) 1.73 K/uL (1.2-3.4); Lymphocytes % (auto) 5.6 %; Monocytes # (auto) 4.27 K/uL (0.11-0.59); Monocytes % (auto) 13.9 %; Neutrophils # (auto) 24.24 K/uL (1.40-6.50); Neutrophils % (auto) 78.7 %; Polychromasia 1+
[2022-11-19 07:48] LABS: Albumin Globulin Ratio 1.4 (0.9-2); Albumin Level 3.9 gm/dl (3.4-5.0); BUN Creatinine Ratio 28.6 (10-20); Bilirubin,Total 0.8 mg/dl (0.2-1.0); Calcium 9.2 mg/dl (8.5-10.1); Creatinine Clr Calc Pharmacy 47.4 ml/min; Est GFR (Non-African American) 52.7 ml/min; Globulin 2.7 gm/dl (2.5-4.0); Potassium 4.2 mmol/L (3.5-5.1); Total Protein 6.6 gm/dl (6.0-8.3); Uric Acid 3.4 mg/dl (2.6-7.2)
[2022-11-19] MEDS ORDERED: PALONOSETRON 0.25 MG in SYRINGE 0 ML IV SCH (08:30)
[2022-11-19] MEDS ORDERED: dexAMETHasone 12 MG in DEXTROSE 5% 25 ML IV SCH (08:30)
[2022-11-19] MEDS: MIDODRINE HCL 2.5 MG TAB PO SCH ×3 (08:59→16:43)
[2022-11-19] MEDS: MEGESTROL ACETATE 40 MG TAB PO SCH (09:00)
[2022-11-19] MEDS: METOPROLOL TARTRATE 50 MG TAB PO SCH ×2 (09:00→20:07)
[2022-11-19] MEDS: dilTIAZem HCL 30 MG TAB PO SCH ×2 (09:00→20:07)
[2022-11-19] MEDS: ATORVASTATIN 40 MG TAB PO SCH (09:00)
[2022-11-19] MEDS ORDERED: vinCRIStine SULFATE 1 MG in SODIUM CHLORIDE 0.9% 50 ML IV SCH (09:00)
[2022-11-19] MEDS: allopurinoL 300 MG TAB PO SCH (09:00)
[2022-11-19] MEDS: CEROVITE ADV FORMULA TAB PO SCH (09:01)
[2022-11-19] MEDS: PANTOprazole 40 MG TAB PO SCH (09:01)
[2022-11-19] MEDS ORDERED: CYCLOPHOSPHAMIDE IV SCH (09:15)
[2022-11-19] MEDS ORDERED: SODIUM CHLORIDE 0.9% IV SCH ×2 (09:15→09:45)
[2022-11-19] MEDS ORDERED: ETOPOSIDE IV SCH (09:45)
--- NOTE | 2022-11-19 11:37 | Electrocardiogram Report ---
Test Reason : Blood Pressure : / mmHG Vent. Rate : 074 BPM Atrial Rate : 075 BPM P-R Int : 120 ms QRS Dur : 082 ms QT Int : 412 ms P-R-T Axes : 039 -15 -38 degrees QTc Int : 457 ms Poor data quality, interpretation may be adversely affected Sinus rhythm with Premature supraventricular complexes and demand atrial pacing Inferior infarct (cited on or before 27-OCT-2022) Abnormal ECG When compared with ECG of 18-NOV-2022 14:53, Premature supraventricular complexes are now Present Nonspecific T wave abnormality no longer evident in Lateral leads Confirmed by Jeremiah Aleman ([id number]) on 11/19/2022 11:37:21 AM Referred By: Niyah Rojas Confirmed By:Fabricio Aleman
--- NOTE | 2022-11-19 15:39 | Hospitalist Progress Note ---
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 Pt recently hospitalized 2/2 fall and R hip fx s/p R IM nail on 10/27/[address] Null. Was d/c to SNF for PT/OT. Now presents back to hospital for direct admission at direction of oncology to initiate chemotherapy. 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 Chronic Thrombocytopenia Marrow biopsy consistent with CMML with multiple mutations including SRS F2 and TET 2 Continue chemotherapy as per oncology Appreciate oncology input Monitor CBC CT neck pending Needs outpatient PET scan Continue prednisone as per oncology Continue allopurinol for tumor lysis syndrome prophylaxis Needs follow-up with oncology upon discharge SSS S/P PPM Orthostatic hypotension Valvular heart disease H/O PSVT continue diltiazem, metoprolol Abnormal EKG No significant change from prior Denies any chest pain Chronic troponin elevation Frequent falls Recent R hip fx s/p IM nail by Dr. Null 10/27/22 PT OT Fall precautions Needs follow-up with orthopedics with repeat imaging in 1 month PAD continue statin ABIs done on 03/17 showed R 0.87 and L 0.85 at rest concerning for occlusive disease to b/l SFA and tibial artery along with L iliac disease Follow-up as outpatient COPD No signs of exacerbation continue home inhalers DTI 2/2 pressure of b/l heels - POA consult wound care Heel precautions Tobacco use Encouraged cessation Refuses nicotine patch Anorexia 30lb weight loss since July Continue Megace DVT Px: SCDS Re: Thrombocytopenia Code Status FULL CODE Disposition PT OT prior to discharge Admission and Anticipated Discharge Date Admission Date: November 18, 2022 Subjective Patient is seen and examined at bedside States having right hip pain intermittently Otherwise feels well Denies any chest pain, shortness of breath, dizziness, nausea, abdominal pain No other complaints Review of Systems Review of Systems: All systems reviewed & are unremarkable except as noted in Subjective Physical Exam Physical Exam: Physical Exam: Vitals signs as noted above General Appearance:Thin, Frail, Chronic ill appearing, no apparent distress Head: normocephalic, Atraumatic Eyes: normal inspection, EOMI Neck: supple, Trachea midline Respiratory/Chest: Decreased Normal breath sounds, CTA, No accessory muscle use Cardiovascular: S1, S2, No murmur Abdomen/GI:Soft, Non tender, Bowel sounds present Extremities/Musculoskeletal:normal inspection, no edema, R hip surgical scar Neurologic/Psych:AAOX3, grossly no focal neurological deficits Skin: normal color, warm Results & Data Results & Data ([facility]) Vital Signs (Past 12 Hours) Vital Signs Temp Pulse Resp BP Pulse Ox O2 Del Method 11/19/22 12:03 36.6 C 80 19 124/65 93 Room Air 11/19/22 08:04 36.7 C 77 18 107/64 93 Room Air Laboratory Results Short CBC 11/19/22 Range/Units 06:07 WBC 30.81 H* (4.8-10.8) K/ul Hgb 9.6 L (14.0-18.0) g/dl Hct 30.3 L (42.0-52.0) % Plt Count 68 L (130-400) K/uL BMP 11/19/22 06:07 Sodium 137 Potassium 4.2 Chloride 103 Carbon Dioxide 22 BUN 38 H Creatinine 1.33 Glucose 148 H Calcium 9.2 Liver Function 11/19/22 Range/Units 06:07 Total Bilirubin 0.8 (0.2-1.0) mg/dl AST 23 (13-39) U/L ALT 37 (7-52) U/L Alkaline Phosphatase 72 (34-104) U/L Albumin 3.9 (3.4-5.0) gm/dl
[2022-11-19] MEDS ORDERED: OPTIRAY 350 100ml IV ONE (17:56)
--- NOTE | 2022-11-19 18:16 | CT Scan Report ---
CT soft tissue neck w con CT DOSE: 448.56 mGy.cm CLINICAL HISTORY: Neck Mass TECHNIQUE: Multiaxial CT images of the neck were performed following the intravenous administration o f contrast. Sagittal and coronal reformations were performed at the workstation by the radiologist. A dose lowering technique was utilized adhering to the principles of ALARA. COMPARISON STUDY: CT neck 09/20/2022. FINDINGS: The majority of the enlarged right cervical lymph nodes seen on the prior study are almost completely cystic/necrotic and have also slightly increased in size. Dominant right cervical lymph no de deep to the skin marker measures 2.9 x 2.3 cm, previously measuring 2.4 x 2.0 cm. There are few ne w mild enlarged right posterior cervical chain lymph nodes. Stable subcentimeter left cervical lymph nodes. The visualized brain parenchyma and orbits are unremarkable. The pterygopalatine fossa and par atracheal fat spaces are well-maintained. There is mild edema surrounding the right carotid arteries. Prevertebral soft tissues and the epiglottis are normal in thickness. The major mucosal airways serv ices are intact. The thyroid gland enhances normally. Emphysema. Pacemaker wires and a right-sided ce ntral venous catheter partially visualized. The orbits are unremarkable. The parotid and submandibula r glands enhance symmetrically. Moderate calcified plaque within the bilateral carotid bifurcations w ith up to 50% stenosis within the proximal bilateral internal carotid arteries. This remains unchange d. The paranasal sinuses and mastoid air cells are clear. No suspicious lytic or blastic osseous lesi ons. IMPRESSION: 1. The majority of the enlarged right cervical lymph nodes seen on the prior study are almost complet enrique cystic/necrotic and have also slightly increased in size. Neoplastic/metastatic disease of the di agnosis of exclusion. Of note, these were previously biopsied. 2. There are few new mildly enlarged right posterior cervical chain lymph nodes. 3. Emphysema. 4. Additional findings as described above. ACT 112: Positive. There are findings on this exam that require communication between the performing entity and the patient following Patient Test Result Information Act ([place] Act 112) guidelines. Electronically signed by: Kyle Barker M.D. 11/19/2022 6:14 PM
[2022-11-19] MEDS: MELATONIN 3 MG TAB PO PRN (23:35)
[2022-11-20] MEDS: oxyCODONE HCL IR 5 MG TAB (IMMEDIATE RELEASE) PO PRN ×3 (06:40→19:50)
[2022-11-20 07:06] LABS: Hematocrit (blood only) 26.5 % (42.0-52.0); Hemoglobin 8.4 g/dl (14.0-18.0); Mean Corpuscular Hemoglobin 27.1 pg (25.0-34.0); Mean Corpuscular Hgb Conc 31.7 g/dL (32.0-36.0); Mean Corpuscular Volume 85.5 fL (80.0-100.0); Nucleated RBC # (auto) 0.08 K/uL (0-0.12); Nucleated RBC % (auto) 0.2 %; Platelet Count 50 K/uL (130-400); RDW Coefficient of Variation 21.8 % (11.5-14.5); RDW Standard Deviation 65.1 fL (36.4-46.3); White Blood Count 43.05 K/ul (4.8-10.8)
[2022-11-20 07:15] LABS: Anisocytosis Present; Basophils # (auto) 0.08 K/uL (0-0.2); Basophils % (auto) 0.2 %; Hypogranular Neutrophils 2+; Immature Granulocytes # (auto) 1.44 K/uL (0.01-0.20); Immature Granulocytes % (auto) 3.3 %; Lymphocytes # (auto) 1.19 K/uL (1.2-3.4); Lymphocytes % (auto) 2.8 %; Monocytes # (auto) 8.41 K/uL (0.11-0.59); Monocytes % (auto) 19.5 %; Neutrophils # (auto) 31.93 K/uL (1.40-6.50); Neutrophils % (auto) 74.2 %; Polychromasia 1+
[2022-11-20 07:24] LABS: Albumin Globulin Ratio 1.4 (0.9-2); Albumin Level 3.4 gm/dl (3.4-5.0); BUN Creatinine Ratio 39.3 (10-20); Bilirubin,Total 0.6 mg/dl (0.2-1.0); Creatinine Clr Calc Pharmacy 49.2 ml/min; Est GFR (African American) 71.3 ml/min; Est GFR (Non-African American) 61.5 ml/min; Globulin 2.5 gm/dl (2.5-4.0); Magnesium 2.1 mg/dl (1.7-2.4); Phosphorus 5.4 mg/dl (2.5-4.9); Potassium 4.2 mmol/L (3.5-5.1); Total Protein 5.9 gm/dl (6.0-8.3); Uric Acid 3.8 mg/dl (2.6-7.2)
[2022-11-20] MEDS: predniSONE 50 MG TAB PO SCH (08:24)
[2022-11-20] MEDS: PANTOprazole 40 MG TAB PO SCH (08:25)
[2022-11-20] MEDS: CEROVITE ADV FORMULA TAB PO SCH (08:25)
[2022-11-20] MEDS: MIDODRINE HCL 2.5 MG TAB PO SCH ×3 (08:25→16:52)
[2022-11-20] MEDS: ATORVASTATIN 40 MG TAB PO SCH (08:25)
[2022-11-20] MEDS: MEGESTROL ACETATE 40 MG TAB PO SCH (08:25)
[2022-11-20] MEDS: allopurinoL 300 MG TAB PO SCH (08:25)
[2022-11-20] MEDS: dilTIAZem HCL 30 MG TAB PO SCH ×2 (08:25→20:33)
[2022-11-20] MEDS: METOPROLOL TARTRATE 50 MG TAB PO SCH ×2 (08:25→20:33)
[2022-11-20] MEDS: ETOPOSIDE IV SCH (09:24)
[2022-11-20] MEDS: SODIUM CHLORIDE 0.9% IV SCH (09:24)
--- NOTE | 2022-11-20 17:12 | Hospitalist Progress Note ---
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 Pt recently hospitalized 2/2 fall and R hip fx s/p R IM nail on 10/27/[address] Null. Was d/c to SNF for PT/OT. Now presents back to hospital for direct admission at direction of oncology to initiate chemotherapy. 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 The majority of the enlarged right cervical lymph nodes seen on the prior study are almost completely cystic/necrotic and have also slightly increased in size. Neoplastic/metastatic disease of the diagnosis of exclusion. Of note, these were previously biopsied. There are few new mildly enlarged right posterior cervical chain lymph nodes. Emphysema. -Continue chemotherapy as per oncology Appreciate oncology input Monitor CBC Needs outpatient PET scan Continue prednisone as per oncology Continue allopurinol for tumor lysis syndrome prophylaxis Needs follow-up with oncology upon discharge Tolerating chemotherapy Leukocytosis secondary to steroids, lymphoma SSS S/P PPM Orthostatic hypotension Valvular heart disease H/O PSVT continue diltiazem, metoprolol Abnormal EKG No significant change from prior Denies any chest pain Chronic troponin elevation Frequent falls Recent R hip fx s/p IM nail by Dr. Null 10/27/22 PT OT Fall precautions Needs follow-up with orthopedics with repeat imaging in 1 month PAD continue statin ABIs done on 03/17 showed R 0.87 and L 0.85 at rest concerning for occlusive disease to b/l SFA and tibial artery along with L iliac disease Obtain arterial Doppler Vascular surgery consulted COPD No signs of exacerbation continue home inhalers DTI 2/2 pressure of b/l heels - POA consult wound care Heel precautions Tobacco use Encouraged cessation Refuses nicotine patch Anorexia 30lb weight loss since July Continue Megace DVT Px: SCDS Re: Thrombocytopenia Code Status FULL CODE Admission and Anticipated Discharge Date Admission Date: November 18, 2022 Subjective Patient is seen and examined at bedside At chemotherapy today Right hip pain is controlled No new complaints Denies any chest pain, shortness of breath, dizziness, nausea, abdominal pain Review of Systems Review of Systems: All systems reviewed & are unremarkable except as noted in Subjective Physical Exam Physical Exam: Physical Exam: Vitals signs as noted above General Appearance:Thin, Frail, Chronic ill appearing, no apparent distress Head: normocephalic, Atraumatic Eyes: normal inspection, EOMI Neck: supple, Trachea midline Respiratory/Chest: Decreased Normal breath sounds, CTA, No accessory muscle use Cardiovascular: S1, S2, No murmur Abdomen/GI:Soft, Non tender, Bowel sounds present Extremities/Musculoskeletal:normal inspection, no edema, R hip surgical scar Neurologic/Psych:AAOX3, grossly no focal neurological deficits Skin: normal color, warm Results & Data Results & Data ([facility]) Vital Signs (Past 12 Hours) Vital Signs Temp Pulse Pulse Resp BP Pulse Ox O2 Del Method 11/20/22 16:06 36.6 C 63 19 127/65 94 Room Air 11/20/22 14:55 70 11/20/22 12:12 36.7 C 77 18 113/70 93 Room Air 11/20/22 07:56 36.6 C 71 19 110/68 93 Room Air 11/20/22 07:13 Room Air 11/20/22 07:45 78 Laboratory Results Short CBC 11/20/22 Range/Units 06:12 WBC 43.05 H* (4.8-10.8) K/ul Hgb 8.4 L (14.0-18.0) g/dl Hct 26.5 L (42.0-52.0) % Plt Count 50 L (130-400) K/uL BMP 11/20/22 06:12 Sodium 137 Potassium 4.2 Chloride 105 Carbon Dioxide 23 BUN 46 H Creatinine 1.17 Glucose 120 H Calcium 9.0 Liver Function 11/20/22 Range/Units 06:12 Total Bilirubin 0.6 (0.2-1.0) mg/dl AST 22 (13-39) U/L ALT 38 (7-52) U/L Alkaline Phosphatase 60 (34-104) U/L Albumin 3.4 (3.4-5.0) gm/dl
[2022-11-20] MEDS: MELATONIN 3 MG TAB PO PRN (19:51)
[2022-11-21] MEDS: oxyCODONE HCL IR 5 MG TAB (IMMEDIATE RELEASE) PO PRN ×3 (01:55→18:57)
[2022-11-21 06:36] LABS: Anisocytosis Present; Basophils # (auto) 0.01 K/uL (0-0.2); Basophils % (auto) 0.1 %; Giant Platelets 1+; Hematocrit (blood only) 27.6 % (42.0-52.0); Hemoglobin 8.7 g/dl (14.0-18.0); Hypogranular Neutrophils 2+; Immature Granulocytes # (auto) 0.17 K/uL (0.01-0.20); Immature Granulocytes % (auto) 1.1 %; Lymphocytes # (auto) 0.34 K/uL (1.2-3.4); Lymphocytes % (auto) 2.2 %; Mean Corpuscular Hemoglobin 27.4 pg (25.0-34.0); Mean Corpuscular Hgb Conc 31.5 g/dL (32.0-36.0); Mean Corpuscular Volume 87.1 fL (80.0-100.0); Monocytes # (auto) 2.66 K/uL (0.11-0.59); Monocytes % (auto) 17.6 %; Neutrophils # (auto) 11.94 K/uL (1.40-6.50); Nucleated RBC # (auto) 0.08 K/uL (0-0.12); Nucleated RBC % (auto) 0.5 %; Platelet Count 40 K/uL (130-400); Polychromasia 1+; RDW Coefficient of Variation 21.4 % (11.5-14.5); RDW Standard Deviation 65.5 fL (36.4-46.3); Red Blood Count 3.17 M/uL (4.70-6.10); White Blood Count 15.12 K/ul (4.8-10.8)
[2022-11-21 07:47] LABS: Albumin Level 3.4 gm/dl (3.4-5.0); Bilirubin,Total 0.7 mg/dl (0.2-1.0); Calcium 8.9 mg/dl (8.5-10.1); Magnesium 2.2 mg/dl (1.7-2.4); Potassium 4.3 mmol/L (3.5-5.1)
[2022-11-21 07:53] LABS: Creatinine Clr Calc Pharmacy 62.3 ml/min; Est GFR (African American) 84.1 ml/min; Est GFR (Non-African American) 72.6 ml/min
[2022-11-21 08:03] LABS: Albumin Globulin Ratio 1.4 (0.9-2); Globulin 2.5 gm/dl (2.5-4.0); Phosphorus 5.2 mg/dl (2.5-4.9); Total Protein 5.9 gm/dl (6.0-8.3); Uric Acid 4.9 mg/dl (2.6-7.2)
[2022-11-21] MEDS: MEGESTROL ACETATE 40 MG TAB PO SCH (08:17)
[2022-11-21] MEDS: predniSONE 50 MG TAB PO SCH (08:17)
[2022-11-21] MEDS: CEROVITE ADV FORMULA TAB PO SCH (08:17)
[2022-11-21] MEDS: ATORVASTATIN 40 MG TAB PO SCH (08:18)
[2022-11-21] MEDS: dilTIAZem HCL 30 MG TAB PO SCH ×2 (08:18→20:39)
[2022-11-21] MEDS: allopurinoL 300 MG TAB PO SCH (08:18)
[2022-11-21] MEDS: METOPROLOL TARTRATE 50 MG TAB PO SCH ×2 (08:18→20:38)
[2022-11-21] MEDS: MIDODRINE HCL 2.5 MG TAB PO SCH ×3 (08:18→17:00)
[2022-11-21] MEDS: PANTOprazole 40 MG TAB PO SCH (08:18)
[2022-11-21] MEDS ORDERED: PALONOSETRON 0.25 MG in SYRINGE 0 ML IV SCH (08:30)
[2022-11-21] MEDS: ETOPOSIDE IV SCH (09:09)
[2022-11-21] MEDS: SODIUM CHLORIDE 0.9% IV SCH (09:09)
--- NOTE | 2022-11-21 14:56 | Hospitalist Progress Note ---
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 Pt recently hospitalized 2/2 fall and R hip fx s/p R IM nail on 10/27/[address] Null. Was d/c to SNF for PT/OT. Now presents back to hospital for direct admission at direction of oncology to initiate chemotherapy. 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 The majority of the enlarged right cervical lymph nodes seen on the prior study are almost completely cystic/necrotic and have also slightly increased in size. Neoplastic/metastatic disease of the diagnosis of exclusion. Of note, these were previously biopsied. There are few new mildly enlarged right posterior cervical chain lymph nodes. Emphysema. Appreciate oncology input Monitor CBC Needs outpatient PET scan Continue prednisone as per oncology Continue allopurinol for tumor lysis syndrome prophylaxis Needs follow-up with oncology upon discharge Tolerating chemotherapy Leukocytosis trended down today Continue chemotherapy as per oncology SSS S/P PPM Orthostatic hypotension Valvular heart disease H/O PSVT continue diltiazem, metoprolol Abnormal EKG No significant change from prior Denies any chest pain Chronic troponin elevation Frequent falls Recent R hip fx s/p IM nail by Dr. Null 10/27/22 PT OT Fall precautions Needs follow-up with orthopedics with repeat imaging in 1 month PAD continue statin ABIs done on 03/17 showed R 0.87 and L 0.85 at rest concerning for occlusive disease to b/l SFA and tibial artery along with L iliac disease Arterial Doppler pending Vascular surgery consulted COPD No signs of exacerbation continue home inhalers DTI 2/2 pressure of b/l heels - POA consult wound care Heel precautions Tobacco use Encouraged cessation Refuses nicotine patch Anorexia 30lb weight loss since July Continue Megace DVT Px: SCDS Re: Thrombocytopenia Code Status FULL CODE Admission and Anticipated Discharge Date Admission Date: November 18, 2022 Subjective Patient is seen and examined at bedside Getting chemotherapy this morning No new complaints Denies any significant Right hip pain at surgical site Discussed with patient's family at bedside Denies any chest pain, shortness of breath, dizziness, nausea, abdominal pain Review of Systems Review of Systems: All systems reviewed & are unremarkable except as noted in Subjective Physical Exam Physical Exam: Physical Exam: Vitals signs as noted above General Appearance:Thin, Frail, Chronic ill appearing, no apparent distress Head: normocephalic, Atraumatic Eyes: normal inspection, EOMI Neck: supple, Trachea midline Respiratory/Chest: Decreased Normal breath sounds, CTA, No accessory muscle use Cardiovascular: S1, S2, No murmur Abdomen/GI:Soft, Non tender, Bowel sounds present Extremities/Musculoskeletal:normal inspection, no edema, R hip surgical scar Neurologic/Psych:AAOX3, grossly no focal neurological deficits Skin: normal color, warm Results & Data Results & Data ([facility]) Vital Signs (Past 12 Hours) Vital Signs Temp Pulse Resp BP Pulse Ox O2 Del Method 11/21/22 11:26 36.7 C 78 19 122/60 91 Room Air 11/21/22 06:39 36.7 C 76 16 118/69 96 Room Air Laboratory Results Short CBC 11/21/22 Range/Units 05:44 WBC 15.12 H D (4.8-10.8) K/ul Hgb 8.7 L (14.0-18.0) g/dl Hct 27.6 L (42.0-52.0) % Plt Count 40 L (130-400) K/uL BMP 11/21/22 05:44 Sodium 135 L Potassium 4.3 Chloride 103 Carbon Dioxide 23 BUN 50 H Creatinine 1.02 Glucose 113 H Calcium 8.9 Liver Function 11/21/22 Range/Units 05:44 Total Bilirubin 0.7 (0.2-1.0) mg/dl AST 22 (13-39) U/L ALT 35 (7-52) U/L Alkaline Phosphatase 66 (34-104) U/L Albumin 3.4 (3.4-5.0) gm/dl
[2022-11-21] MEDS: MELATONIN 3 MG TAB PO PRN (19:50)
[2022-11-22] MEDS: oxyCODONE HCL IR 5 MG TAB (IMMEDIATE RELEASE) PO PRN ×4 (02:45→21:31)
[2022-11-22 07:53] LABS: Albumin Globulin Ratio 1.4 (0.9-2); Albumin Level 3.4 gm/dl (3.4-5.0); Calcium 9.1 mg/dl (8.5-10.1); Creatinine Clr Calc Pharmacy 61.8 ml/min; Est GFR (African American) 88.3 ml/min; Est GFR (Non-African American) 76.2 ml/min; Globulin 2.4 gm/dl (2.5-4.0); Magnesium 2.3 mg/dl (1.7-2.4); Phosphorus 4.8 mg/dl (2.5-4.9); Potassium 4.2 mmol/L (3.5-5.1); Total Protein 5.8 gm/dl (6.0-8.3); Uric Acid 5.4 mg/dl (2.6-7.2)
[2022-11-22 08:10] LABS: Basophils # (auto) 0.01 K/uL (0-0.2); Basophils % (auto) 0.1 %; Giant Platelets 1+; Hematocrit (blood only) 25.6 % (42.0-52.0); Hemoglobin 8.3 g/dl (14.0-18.0); Hypogranular Neutrophils 2+; Immature Granulocytes # (auto) 0.08 K/uL (0.01-0.20); Immature Granulocytes % (auto) 0.9 %; Lymphocytes # (auto) 0.18 K/uL (1.2-3.4); Mean Corpuscular Hemoglobin 28.1 pg (25.0-34.0); Mean Corpuscular Hgb Conc 32.4 g/dL (32.0-36.0); Mean Corpuscular Volume 86.8 fL (80.0-100.0); Monocytes # (auto) 1.55 K/uL (0.11-0.59); Neutrophils # (auto) 7.28 K/uL (1.40-6.50); Nucleated RBC # (auto) 0.05 K/uL (0-0.12); Nucleated RBC % (auto) 0.5 %; Platelet Count 26 K/uL (130-400); Platelet Estimate Signific. Decreased (Normal); Polychromasia 1+; RDW Coefficient of Variation 21.2 % (11.5-14.5); RDW Standard Deviation 64.7 fL (36.4-46.3); Red Blood Count 2.95 M/uL (4.70-6.10)
--- NOTE | 2022-11-22 08:38 | Ultrasound Report ---
BILATERAL LOWER EXTREMITY ARTERIAL DOPPLER ULTRASOUND CLINICAL HISTORY: Peripheral arterial disease. COMPARISON STUDY: No previous studies for comparison. TECHNIQUE: Grayscale, color and duplex Doppler sonography of the arterial systems of both lower extre mities was performed. Ankle to brachial indices could not be obtained due to portable technique. FINDINGS: Moderate atherosclerotic plaque is noted within the lower extremities. There is biphasic fl ow within the right common femoral and profunda vessels. Otherwise, there is monophasic flow througho ut the remainder of the right lower extremity. The vessels were patent. Mildly elevated velocities wi thin the right posterior tibial and anterior tibial arteries are present. There are no elevated veloc ities within the left lower extremity. There is biphasic flow within the left common femoral and prof unda vessels with monophasic flow within the remainder of the left lower extremity vessels with the e xception of suspected occlusion of the distal left posterior tibial artery. IMPRESSION: 1. Moderate atherosclerotic plaque within the bilateral lower extremities. Suspected occlusion of the distal left posterior tibial artery, otherwise patent vessels. 2. Monophasic flow within the bilateral calf vessels. ACT 112: Negative or not required by law. Electronically signed by: Alok Davenport M.D. 11/22/2022 8:36 AM
[2022-11-22] MEDS: dilTIAZem HCL 30 MG TAB PO SCH ×2 (08:57→21:32)
[2022-11-22] MEDS: CEROVITE ADV FORMULA TAB PO SCH (08:58)
[2022-11-22] MEDS: METOPROLOL TARTRATE 50 MG TAB PO SCH ×2 (08:58→21:32)
[2022-11-22] MEDS: predniSONE 50 MG TAB PO SCH (08:58)
[2022-11-22] MEDS: MIDODRINE HCL 2.5 MG TAB PO SCH ×3 (08:58→18:11)
[2022-11-22] MEDS: MEGESTROL ACETATE 40 MG TAB PO SCH (08:59)
[2022-11-22] MEDS: PANTOprazole 40 MG TAB PO SCH (08:59)
[2022-11-22] MEDS: allopurinoL 300 MG TAB PO SCH (09:00)
[2022-11-22] MEDS: ATORVASTATIN 40 MG TAB PO SCH (09:00)
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
[2022-11-22] MEDS: CYCLOBENZAPRINE HCL 10 MG TAB PO PRN (12:31)
--- NOTE | 2022-11-22 14:05 | Fluoroscopy Report ---
FL video swallow HISTORY: Neck mass. assess for aspiration TECHNIQUE: Video fluoroscopic evaluation of swallowing was performed in the AP and lateral projection s by the speech pathology staff. The patient is fed nectar-thick and thin liquid barium, a barium coa clemencia wafer, and barium pudding. FLUOROSCOPY TIME: 2.3 minutes. A cine loop submitted. Ka, r: 24.8 mGy. COMPARISON STUDY: None. FINDINGS: There is normal hyoid excursion and epiglottic deflection. A few episodes of trace silent a spiration with the thin liquid barium only. No aspiration seen within the mildly ectatic liquid bariu m, barium pudding, or barium coated cracker. IMPRESSION: 1. A few episodes of trace silent aspiration with the thin liquid barium only. 2. Please see the speech pathologist report for detailed findings and recommendations. ACT 112: Negative or not required by law. Electronically signed by: Kyle Barker M.D. 11/22/2022 2:03 PM
--- NOTE | 2022-11-22 15:52 | Hematology/Oncology Prog Note ---
Date of Service November 22, 2022 Assessment & Plan (1) B-cell lymphoma of lymph nodes of head: (2) CMML (chronic myelomonocytic leukemia): (3) Thrombocytopenia: Plan Very pleasant gentleman recently diagnosed with stage Ia diffuse large B-cell lymphoma for which he is s/p inpatient chemotherapy with cycle 1 of treatment with RCEOP. He also has a history of recently diagnosed CMML-0. Treatment has so far been well-tolerated. Labs show thrombocytopenia likely due to CMML0/ITP and recent chemotherapy. Appears to have responded to treatment with improvement in right neck mass as well as clinical symptoms. -Continue with daily CBC while inpatient. Transfuse for platelet count less than 15,000 and hemoglobin less than 7.5 -Continue with allopurinol -Plan to see him upon discharge from hospital to resume systemic therapy Admission and Anticipated Discharge Date Admission Date: November 18, 2022 Subjective Cycle 1, day 5 following treatment with RCEOP. Treatment has been well- tolerated so far with no significant side effects.Complains of fatigue. Has noticed significant improvement in right-sided neck mass. Also noted improvement in odynophagia Review of Systems Review of Systems: All systems reviewed & are unremarkable except as noted in HPI & below Results & Data ([facility]) Vital Signs (Past 12 Hours) Vital Signs Temp Pulse Pulse Resp BP Pulse Ox O2 Del Method 11/22/22 12:23 36.7 C 85 18 107/63 94 Room Air 11/22/22 08:00 74 11/22/22 08:00 Room Air 11/22/22 06:37 36.8 C 77 18 129/74 93 Room Air
--- NOTE | 2022-11-22 16:44 | Hospitalist Progress Note ---
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 Pt recently hospitalized 2/2 fall and R hip fx s/p R IM nail on 10/27/[address] Null. Was d/c to SNF for PT/OT. Now presents back to hospital for direct admission at direction of oncology to initiate chemotherapy. 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 The majority of the enlarged right cervical lymph nodes seen on the prior study are almost completely cystic/necrotic and have also slightly increased in size. Neoplastic/metastatic disease of the diagnosis of exclusion. Of note, these were previously biopsied. There are few new mildly enlarged right posterior cervical chain lymph nodes. Emphysema. Appreciate oncology input Needs outpatient PET scan Continue prednisone as per oncology Continue allopurinol for tumor lysis syndrome prophylaxis Needs follow-up with oncology upon discharge Completed chemotherapy cycle Will monitor CBC and transfuse as needed Currently no bleeding issues Blood consent obtained today Discussed with oncology: Will need outpatient blood work and follow-up for further chemotherapy Frequent falls Recent R hip fx s/p IM nail by Dr. Null 10/27/22 PT OT Fall precautions Needs follow-up with orthopedics with repeat imaging in 1 month PAD continue statin ABIs done on 03/17 showed R 0.87 and L 0.85 at rest concerning for occlusive disease to b/l SFA and tibial artery along with L iliac disease Arterial Doppler:Moderate atherosclerotic plaque within the bilateral lower extremities. Suspected occlusion of the distal left posterior tibial artery, otherwise patent vessels. Monophasic flow within the bilateral calf vessels. Appreciate vascular surgery input Waffle boots to offload heel pressure No surgical intervention suggested currently Dysphagia-POA Video swallow:few episodes of trace silent aspiration with the thin liquid barium only. Aspiration precautions Appreciate speech therapy recommendations Continue moist~cut easy to chew diet with thin liquids SSS S/P PPM Orthostatic hypotension Valvular heart disease H/O PSVT continue diltiazem, metoprolol Abnormal EKG No significant change from prior Denies any chest pain Chronic troponin elevation COPD No signs of exacerbation continue home inhalers DTI 2/2 pressure of b/l heels - POA consult wound care Heel precautions Tobacco use Encouraged cessation Refuses nicotine patch Anorexia 30lb weight loss since July Continue Megace DVT Px: SCDS Re: Thrombocytopenia Code Status FULL CODE Disposition Home with home health Admission and Anticipated Discharge Date Admission Date: November 18, 2022 Subjective Patient is seen and examined at bedside States having generalized weakness No other complaints Discussed with patient's at bedside Also discussed with Dr. Rojas Denies any chest pain, shortness of breath, dizziness, nausea, abdominal pain Review of Systems Review of Systems: All systems reviewed & are unremarkable except as noted in Subjective Physical Exam Physical Exam: Physical Exam: Vitals signs as noted above General Appearance:Thin, Frail, Chronic ill appearing, no apparent distress Head: normocephalic, Atraumatic Eyes: normal inspection, EOMI Neck: supple, Trachea midline Respiratory/Chest: Decreased Normal breath sounds, CTA, No accessory muscle use Cardiovascular: S1, S2, No murmur Abdomen/GI:Soft, Non tender, Bowel sounds present Extremities/Musculoskeletal:normal inspection, no edema, R hip surgical scar Neurologic/Psych:AAOX3, grossly no focal neurological deficits Skin: normal color, warm Results & Data Results & Data ([facility]) Vital Signs (Past 12 Hours) Vital Signs Temp Pulse Pulse Resp BP Pulse Ox O2 Del Method 11/22/22 16:22 36.8 C 78 17 115/62 92 Room Air 11/22/22 12:23 36.7 C 85 18 107/63 94 Room Air 11/22/22 08:00 74 11/22/22 08:00 Room Air 11/22/22 06:37 36.8 C 77 18 129/74 93 Room Air Laboratory Results Short CBC 11/22/22 Range/Units 06:41 WBC 9.10 (4.8-10.8) K/ul Hgb 8.3 L (14.0-18.0) g/dl Hct 25.6 L (42.0-52.0) % Plt Count 26 L* (130-400) K/uL BMP 11/22/22 06:41 Sodium 136 Potassium 4.2 Chloride 102 Carbon Dioxide 27 BUN 48 H Creatinine 0.98 Glucose 105 H Calcium 9.1 Liver Function 11/22/22 Range/Units 06:41 Total Bilirubin 1.0 (0.2-1.0) mg/dl AST 18 (13-39) U/L ALT 33 (7-52) U/L Alkaline Phosphatase 59 (34-104) U/L Albumin 3.4 (3.4-5.0) gm/dl
[2022-11-22] MEDS: MELATONIN 3 MG TAB PO PRN (21:31)
[2022-11-23] MEDS: oxyCODONE HCL IR 5 MG TAB (IMMEDIATE RELEASE) PO PRN ×2 (03:39→09:42)
[2022-11-23 06:35] LABS: Calcium 8.8 mg/dl (8.5-10.1); Est GFR (African American) 82.2 ml/min; Est GFR (Non-African American) 70.9 ml/min; Potassium 3.9 mmol/L (3.5-5.1)
[2022-11-23 06:54] LABS: Anisocytosis Present; Basophils # (auto) 0.02 K/uL (0-0.2); Basophils % (auto) 0.2 %; Hematocrit (blood only) 21.8 % (42.0-52.0); Hemoglobin 7.2 g/dl (14.0-18.0); Hypogranular Neutrophils 1+; Immature Granulocytes # (auto) 0.22 K/uL (0.01-0.20); Immature Granulocytes % (auto) 1.7 %; Lymphocytes # (auto) 0.24 K/uL (1.2-3.4); Lymphocytes % (auto) 1.9 %; Mean Corpuscular Volume 84.8 fL (80.0-100.0); Monocytes # (auto) 0.63 K/uL (0.11-0.59); Neutrophils # (auto) 11.58 K/uL (1.40-6.50); Neutrophils % (auto) 91.2 %; Nucleated RBC # (auto) 0.03 K/uL (0-0.12); Nucleated RBC % (auto) 0.2 %; Platelet Count 21 K/uL (130-400); Platelet Estimate Decreased (Normal); Poikilocytosis Present; RDW Coefficient of Variation 20.8 % (11.5-14.5); RDW Standard Deviation 63.3 fL (36.4-46.3); Red Blood Count 2.57 M/uL (4.70-6.10); White Blood Count 12.69 K/ul (4.8-10.8)
[2022-11-23] MEDS: MIDODRINE HCL 2.5 MG TAB PO SCH ×2 (08:28→12:20)
[2022-11-23] MEDS: METOPROLOL TARTRATE 50 MG TAB PO SCH (08:28)
[2022-11-23] MEDS: dilTIAZem HCL 30 MG TAB PO SCH (08:28)
[2022-11-23] MEDS: PANTOprazole 40 MG TAB PO SCH (08:29)
[2022-11-23] MEDS: ATORVASTATIN 40 MG TAB PO SCH (08:29)
[2022-11-23] MEDS: CEROVITE ADV FORMULA TAB PO SCH (08:29)
[2022-11-23] MEDS: predniSONE 50 MG TAB PO SCH (08:29)
[2022-11-23] MEDS: allopurinoL 300 MG TAB PO SCH (08:29)
[2022-11-23] MEDS: MEGESTROL ACETATE 40 MG TAB PO SCH (08:29)
[2022-11-23] MEDS: CYCLOBENZAPRINE HCL 10 MG TAB PO PRN (08:34)
[2022-11-23] MEDS ORDERED: SODIUM CHLORIDE 0.9% 250 ML IV PRN (08:55)
--- NOTE | 2022-11-23 14:18 | Hospitalist Progress Note ---
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 Pt recently hospitalized 2/2 fall and R hip fx s/p R IM nail on 10/27/[address] Null. Was d/c to SNF for PT/OT. Now presents back to hospital for direct admission at direction of oncology to initiate chemotherapy. 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 The majority of the enlarged right cervical lymph nodes seen on the prior study are almost completely cystic/necrotic and have also slightly increased in size. Neoplastic/metastatic disease of the diagnosis of exclusion. Of note, these were previously biopsied. There are few new mildly enlarged right posterior cervical chain lymph nodes. Emphysema. Appreciate oncology input Needs outpatient PET scan Continue prednisone as per oncology Continue allopurinol for tumor lysis syndrome prophylaxis Completed chemotherapy cycle No bleeding issues Discussed with oncology 11/22/22 and 11/23/22: Will need outpatient blood work and follow-up for further chemotherapy. Can discharge with PICC line in place as cardiology recommends to hold off on Mediport. Hb 7.2 today Transfuse 1 unit PRBC Thrombocytes 21 K. No plan for transfusion unless less than 15,000. Plan to discharge home with Home Health Needs follow-up with oncology upon discharge Frequent falls Recent R hip fx s/p IM nail by Dr. Null 10/27/22 PT OT Fall precautions Needs follow-up with orthopedics with repeat imaging in 1 month Follow-up with orthopedics is scheduled PAD continue statin ABIs done on 03/17 showed R 0.87 and L 0.85 at rest concerning for occlusive disease to b/l SFA and tibial artery along with L iliac disease Arterial Doppler:Moderate atherosclerotic plaque within the bilateral lower extremities. Suspected occlusion of the distal left posterior tibial artery, otherwise patent vessels. Monophasic flow within the bilateral calf vessels. Appreciate vascular surgery input Waffle boots to offload heel pressure No surgical intervention suggested currently Dysphagia-POA Video swallow:few episodes of trace silent aspiration with the thin liquid barium only. Aspiration precautions Appreciate speech therapy recommendations Continue moist~cut easy to chew diet with thin liquids SSS S/P PPM Orthostatic hypotension Valvular heart disease H/O PSVT continue diltiazem, metoprolol Abnormal EKG No significant change from prior Denies any chest pain Chronic troponin elevation COPD No signs of exacerbation continue home inhalers DTI 2/2 pressure of b/l heels - POA consult wound care Heel precautions Tobacco use Encouraged cessation Refuses nicotine patch Anorexia 30lb weight loss since July Continue Megace DVT Px: SCDS Re: Thrombocytopenia Code Status FULL CODE Disposition Home with home health Admission and Anticipated Discharge Date Admission Date: November 18, 2022 Subjective Patient is seen and examined at bedside States feeling tired No other complaints Discussed with patient's at bedside and Dr. Rojas Denies any chest pain, shortness of breath, dizziness, nausea, abdominal pain Plan to transfuse 1 unit PRBC today Review of Systems Review of Systems: All systems reviewed & are unremarkable except as noted in Subjective Physical Exam Physical Exam: Physical Exam: Vitals signs as noted above General Appearance:Thin, Frail, Chronic ill appearing, no apparent distress Head: normocephalic, Atraumatic Eyes: normal inspection, EOMI Neck: supple, Trachea midline Respiratory/Chest: Decreased Normal breath sounds, CTA, No accessory muscle use Cardiovascular: S1, S2, No murmur Abdomen/GI:Soft, Non tender, Bowel sounds present Extremities/Musculoskeletal:normal inspection, no edema, R hip surgical scar Neurologic/Psych:AAOX3, grossly no focal neurological deficits Skin: normal color, warm Results & Data Results & Data ([facility]) Vital Signs (Past 12 Hours) Vital Signs Temp Pulse Pulse Resp BP BP Pulse Ox 11/23/22 12:43 36.5 C 71 18 119/71 93 11/23/22 12:28 36.5 C 77 18 108/63 94 11/23/22 12:12 36.6 C 82 18 105/65 94 11/23/22 11:35 36.8 C 81 17 107/63 93 11/23/22 08:54 11/23/22 08:00 36.5 C 90 16 105/59 L 93 11/23/22 07:28 76 11/23/22 02:50 36.5 C 72 16 133/75 96 O2 Del Method 11/23/22 12:43 11/23/22 12:28 11/23/22 12:12 11/23/22 11:35 Room Air 11/23/22 08:54 Room Air 11/23/22 08:00 Room Air 11/23/22 07:28 11/23/22 02:50 Room Air Laboratory Results Short CBC 11/23/22 Range/Units 05:44 WBC 12.69 H (4.8-10.8) K/ul Hgb 7.2 L (14.0-18.0) g/dl Hct 21.8 L (42.0-52.0) % Plt Count 21 L* (130-400) K/uL BMP 11/23/22 05:44 Sodium 136 Potassium 3.9 Chloride 103 Carbon Dioxide 28 BUN 53 H Creatinine 1.04 Glucose 119 H Calcium 8.8
--- NOTE | 2022-11-23 14:50 | Discharge Summary ---
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 Of significance patient was recently hospitalized 10/27-11/05/22 secondary to fall and subsequent right hip fracture. He underwent IM nailing of the right intertrochanteric fracture by Dr. Null on 10/27/2022. Chemical prophylaxis for VTE was avoided in setting of history of ITP and thrombocytopenia. Cardiology and heme/oncology were consulted to evaluate patient preoperatively due to history of NSTEMI and he was given platelets prior to procedure. Due to procedure patient required PT and OT at SNF facility. During hospitalization he did have difficulty with hypotension despite IV fluids. He remained orthostatic. Cardiology was on board and recommended a trial of midodrine 2.5 mg 3 times a day to maintain blood pressure and hopeful to prevent falls. He was also started on Megace for appetite stimulation due to poor po intake. In regards to RLE he is WBAT and recently follows up with Dr. Null and neymar were removed. He has been at [facility] for rehab. He follows with Dr. Rojas for heme/onc in regards to Diffuse B cell lymphoma. He is being admitted to initiate inpatient chemotherapy. Currently patient feels generally weak and complains of right-sided neck pain and right hip pain. He feels he is making improvements in therapy and then walking with a walker. He also complains of change in color to his bilateral heels and pain. He denies any fever, chills, sweats, lightheadedness, dizziness, chest pain, shortness breath, cough, nausea, vomit, abdominal pain. P.o. intake is still very poor despite Megace. He continues to to smoke cigarettes despite being in rehab. is at bedside. Patient has not yet underwent PET/CT. Over the last 2 weeks he has been noticing increasing size to his right neck and enlarged lymph node as well as worsening pain. He further elicits difficulty swallowing due to enlargement of neck lymph nodes. Admission Exam Per Admitting Provider On exam General: Elderly man in no distress Eyes: PERRL, conjunctivae normal, not pale, anicteric sclerae, EOM intact bilaterally ENMT: External ear and nose normal, oropharynx normal Neck: Right neck swelling at angle of jaw, tender Respiratory: Normal respiratory effort, no respiratory distress, lungs clear to auscultation, no crackles and no wheezes Cardiovascular: RRR S1 S2 Gastrointestinal (Abdomen): Abdomen is not distended, soft, non-tender to palpation, no guarding, no palpable hepatosplenomegaly, normal bowel sounds Musculoskeletal: No pedal edema Skin: Deep tiss injury on both heels Neurologic: Alert and oriented x 3, No focal weakness, sensation grossly intact. Power reduced in RLE due to recent fracture Psychiatric: Euthymic affect Principal Diagnosis Diffuse B Cell Lymphoma Chronic myelomonocytic leukemia Thrombocytopenia Recent Right hip fracture Peripheral artery disease Dysphagia Orthostatic hypotension Valvular heart disease Discharge Data Allergies Allergy/AdvReac Type Severity Reaction Status Date / Time cephalexin Allergy Intermediate vomiting, Verified 11/15/22 12:08 diarrhea Consultations 11/18/22 11:55 Consult Oncology Routine 11/22/22 07:00 Consult Vascular Surgery Routine Procedures Performed Laboratory Results WBC 12.69 K/ul (4.8-10.8) H 11/23/22 05:44 RBC 2.57 M/uL (4.70-6.10) L 11/23/22 05:44 Hgb 7.2 g/dl (14.0-18.0) L 11/23/22 05:44 Hct 21.8 % (42.0-52.0) L 11/23/22 05:44 MCV 84.8 fL (80.0-100.0) 11/23/22 05:44 MCH 28.0 pg (25.0-34.0) 11/23/22 05:44 MCHC 33.0 g/dL (32.0-36.0) 11/23/22 05:44 RDW Std Deviation 63.3 fL (36.4-46.3) H 11/23/22 05:44 RDW Coeff of Efren 20.8 % (11.5-14.5) H 11/23/22 05:44 Plt Count 21 K/uL (130-400) L* 11/23/22 05:44 Immature Gran % (Auto) 1.7 % 11/23/22 05:44 Neut % (Auto) 91.2 % 11/23/22 05:44 Lymph % (Auto) 1.9 % 11/23/22 05:44 [place] % (Auto) 5.0 % 11/23/22 05:44 Eos % (Auto) 0.0 % 11/23/22 05:44 Baso % (Auto) 0.2 % 11/23/22 05:44 Neut # (Auto) 11.58 K/uL (1.40-6.50) H 11/23/22 05:44 Lymph # (Auto) 0.24 K/uL (1.2-3.4) L 11/23/22 05:44 [place] # (Auto) 0.63 K/uL (0.11-0.59) H 11/23/22 05:44 Eos # (Auto) 0.00 K/uL (0-0.50) 11/23/22 05:44 Baso # (Auto) 0.02 K/uL (0-0.2) 11/23/22 05:44 Immature Gran # (Auto) 0.22 K/uL (0.01-0.20) H 11/23/22 05:44 Absolute Nucleated RBC 0.03 K/uL (0-0.12) 11/23/22 05:44 Nucleated RBC % (auto) 0.2 % 11/23/22 05:44 Hypogranular Neuts 1+ 11/23/22 05:44 Platelet Estimate Decreased (Normal) L 11/23/22 05:44 Giant Platelets 1+ 11/22/22 06:41 Polychromasia 1+ 11/22/22 06:41 Poikilocytosis Present 11/23/22 05:44 Anisocytosis Present 11/23/22 05:44 Sodium 136 mmol/L (136-145) 11/23/22 05:44 Potassium 3.9 mmol/L (3.5-5.1) 11/23/22 05:44 Chloride 103 mmol/L (98-107) 11/23/22 05:44 Carbon Dioxide 28 mmol/L (21-32) 11/23/22 05:44 Anion Gap 5 (3-11) 11/23/22 05:44 BUN 53 mg/dl (6-23) H 11/23/22 05:44 Creatinine 1.04 mg/dl (0.6-1.4) 11/23/22 05:44 Est Cr Clr Drug Dosing 54.0 ml/min 11/23/22 05:44 Est GFR ( Amer) 82.2 ml/min 11/23/22 05:44 Est GFR (Non-Af Amer) 70.9 ml/min 11/23/22 05:44 BUN/Creatinine Ratio 51.0 (10-20) H 11/23/22 05:44 Glucose 119 mg/dl (70-99(Fasting)) H 11/23/22 05:44 Uric Acid 5.4 mg/dl (2.6-7.2) 11/22/22 06:41 Calcium 8.8 mg/dl (8.5-10.1) 11/23/22 05:44 Phosphorus 4.8 mg/dl (2.5-4.9) 11/22/22 06:41 Magnesium 2.3 mg/dl (1.7-2.4) 11/22/22 06:41 Total Bilirubin 1.0 mg/dl (0.2-1.0) 11/22/22 06:41 AST 18 U/L (13-39) 11/22/22 06:41 ALT 33 U/L (7-52) 11/22/22 06:41 Alkaline Phosphatase 59 U/L (34-104) 11/22/22 06:41 Troponin I High Sens 171.8 pg/ml (0-20) H* 11/19/22 06:07 Total Protein 5.8 gm/dl (6.0-8.3) L 11/22/22 06:41 Albumin 3.4 gm/dl (3.4-5.0) 11/22/22 06:41 Globulin 2.4 gm/dl (2.5-4.0) L 11/22/22 06:41 Albumin/Globulin Ratio 1.4 (0.9-2) 11/22/22 06:41 SARS-CoV-2, RNA, NAAT NEGATIVE (NEGATIVE) 11/18/22 17:28 Blood Type O Positive 11/23/22 09:25 Antibody Screen NEGATIVE 11/23/22 09:25 Crossmatch See Detail 11/23/22 09:25 Impressions Chest X-Ray 11/18/22 16:41 SINGLE VIEW CHEST CLINICAL HISTORY: PICC placement. FINDINGS: An AP, portable, upright chest radiograph is compared to study dated 10/26/2022 and correlated with chest CT dated 10/17/2022. The examination is degraded by portable technique and apical lordotic positioning. A 2-lead cardiac pacemaker is unchanged in position. A right PICC line has been placed. The tip projects over the cavoatrial junction. The heart is enlarged noting atherosclerotic calcification of the thoracic aorta. The pulmonary vasculature is noncongested. Emphysema and chronic interstitial thickening is similar to previous. Mild scarring/atelectasis is noted at the lung bases. The lungs and pleural spaces are otherwise clear. No pneumothorax is seen. The skeletal structures are osteopenic. The bony thorax is grossly intact. IMPRESSION: 1. A right PICC line has been placed as above. 2. Cardiomegaly and cardiac pacemaker without radiographic evidence of congestive failure. 3. Emphysema. 4. No airspace consolidation or large pleural effusion is identified ACT 112: Negative or not required by law. Electronically signed by: Richie Freire M.D. 11/18/2022 5:[address] Tissue Neck [address] 11/19/22 11:57 CT soft tissue neck w con CT DOSE: 448.56 mGy.cm CLINICAL HISTORY: Neck Mass TECHNIQUE: Multiaxial CT images of the neck were performed following the intravenous administration of contrast. Sagittal and coronal reformations were performed at the workstation by the radiologist. A dose lowering technique was utilized adhering to the principles of ALARA. COMPARISON STUDY: CT neck 09/20/2022. FINDINGS: The majority of the enlarged right cervical lymph nodes seen on the prior study are almost completely cystic/necrotic and have also slightly increased in size. Dominant right cervical lymph node deep to the skin marker measures 2.9 x 2.3 cm, previously measuring 2.4 x 2.0 cm. There are few new mild enlarged right posterior cervical chain lymph nodes. Stable subcentimeter left cervical lymph nodes. The visualized brain parenchyma and orbits are unremarkable. The pterygopalatine fossa and paratracheal fat spaces are well- maintained. There is mild edema surrounding the right carotid arteries. Prevertebral soft tissues and the epiglottis are normal in thickness. The major mucosal airways services are intact. The thyroid gland enhances normally. Emphysema. Pacemaker wires and a right-sided central venous catheter partially visualized. The orbits are unremarkable. The parotid and submandibular glands enhance symmetrically. Moderate calcified plaque within the bilateral carotid bifurcations with up to 50% stenosis within the proximal bilateral internal carotid arteries. This remains unchanged. The paranasal sinuses and mastoid air cells are clear. No suspicious lytic or blastic osseous lesions. IMPRESSION: 1. The majority of the enlarged right cervical lymph nodes seen on the prior study are almost completely cystic/necrotic and have also slightly increased in size. Neoplastic/metastatic disease of the diagnosis of exclusion. Of note, these were previously biopsied. 2. There are few new mildly enlarged right posterior cervical chain lymph nodes. 3. Emphysema. 4. Additional findings as described above. ACT 112: Positive. There are findings on this exam that require communication between the performing entity and the patient following Patient Test Result Information Act ([place] Act 112) guidelines. Electronically signed by: Kyle Barker M.D. 11/19/2022 6:14 PM Duplex Scan Lower Extremity Artery 11/20/22 14:51 BILATERAL LOWER EXTREMITY ARTERIAL DOPPLER ULTRASOUND CLINICAL HISTORY: Peripheral arterial disease. COMPARISON STUDY: No previous studies for comparison. TECHNIQUE: Grayscale, color and duplex Doppler sonography of the arterial systems of both lower extremities was performed. Ankle to brachial indices could not be obtained due to portable technique. FINDINGS: Moderate atherosclerotic plaque is noted within the lower extremities. There is biphasic flow within the right common femoral and profunda vessels. Otherwise, there is monophasic flow throughout the remainder of the right lower extremity. The vessels were patent. Mildly elevated velocities within the right posterior tibial and anterior tibial arteries are present. There are no elevated velocities within the left lower extremity. There is biphasic flow within the left common femoral and profunda vessels with monophasic flow within the remainder of the left lower extremity vessels with the exception of suspected occlusion of the distal left posterior tibial artery. IMPRESSION: 1. Moderate atherosclerotic plaque within the bilateral lower extremities. Suspected occlusion of the distal left posterior tibial artery, otherwise patent vessels. 2. Monophasic flow within the bilateral calf vessels. ACT 112: Negative or not required by law. Electronically signed by: Alok Davenport M.D. 11/22/2022 8:36 AM Videofluoroscopic Swallow 11/22/22 13:30 FL video swallow HISTORY: Neck mass. assess for aspiration TECHNIQUE: Video fluoroscopic evaluation of swallowing was performed in the AP and lateral projections by the speech pathology staff. The patient is fed nectar-thick and thin liquid barium, a barium coated wafer, and barium pudding. FLUOROSCOPY TIME: 2.3 minutes. A cine loop submitted. katerina Cortes: 24.8 mGy. COMPARISON STUDY: None. FINDINGS: There is normal hyoid excursion and epiglottic deflection. A few episodes of trace silent aspiration with the thin liquid barium only. No aspiration seen within the mildly ectatic liquid barium, barium pudding, or barium coated cracker. IMPRESSION: 1. A few episodes of trace silent aspiration with the thin liquid barium only. 2. Please see the speech pathologist report for detailed findings and recommendations. ACT 112: Negative or not required by law. Electronically signed by: Kyle Barker M.D. 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 Pt recently hospitalized 2/2 fall and R hip fx s/p R IM nail on 10/27/[address] Null. Was d/c to SNF for PT/OT. Now presents back to hospital for direct admission at direction of oncology to initiate chemotherapy. 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 The majority of the enlarged right cervical lymph nodes seen on the prior study are almost completely cystic/necrotic and have also slightly increased in size. Neoplastic/metastatic disease of the diagnosis of exclusion. Of note, these were previously biopsied. There are few new mildly enlarged right posterior cervical chain lymph nodes. Emphysema. Appreciate oncology input Needs outpatient PET scan Continue prednisone as per oncology Continue allopurinol for tumor lysis syndrome prophylaxis Completed chemotherapy cycle No bleeding issues Discussed with oncology 11/22/22 and 11/23/22: Will need outpatient blood work and follow-up for further chemotherapy. Can discharge with PICC line in place as cardiology recommends to hold off on Mediport. Hb 7.2 today Transfuse 1 unit PRBC Thrombocytes 21 K. No plan for transfusion unless less than 15,000. Plan to discharge home with Home Health Needs follow-up with oncology upon discharge Frequent falls Recent R hip fx s/p IM nail by Dr. Null 10/27/22 PT OT Fall precautions Needs follow-up with orthopedics with repeat imaging in 1 month Follow-up with orthopedics is scheduled PAD continue statin ABIs done on 03/17 showed R 0.87 and L 0.85 at rest concerning for occlusive disease to b/l SFA and tibial artery along with L iliac disease Arterial Doppler:Moderate atherosclerotic plaque within the bilateral lower extremities. Suspected occlusion of the distal left posterior tibial artery, otherwise patent vessels. Monophasic flow within the bilateral calf vessels. Appreciate vascular surgery input Waffle boots to offload heel pressure No surgical intervention suggested currently Dysphagia-POA Video swallow:few episodes of trace silent aspiration with the thin liquid barium only. Aspiration precautions Appreciate speech therapy recommendations Continue moist~cut easy to chew diet with thin liquids SSS S/P PPM Orthostatic hypotension Valvular heart disease H/O PSVT continue diltiazem, metoprolol Abnormal EKG No significant change from prior Denies any chest pain Chronic troponin elevation COPD No signs of exacerbation continue home inhalers DTI 2/2 pressure of b/l heels - POA consult wound care Heel precautions Tobacco use Encouraged cessation Refuses nicotine patch Anorexia 30lb weight loss since July Continue Megace DVT Px: SCDS Re: Thrombocytopenia Code Status FULL CODE Disposition Home with home health Total Time Total Time Spent Total Time Spent (In Minutes): 65 minutes Discharge Plan Discharge Items Patient Disposition: Home - Home Health Services Reason For Visit: LYMPHOMA Discharge Diagnosis: Diffuse B Cell Lymphoma Chronic myelomonocytic leukemia Thrombocytopenia Recent Right hip fracture Peripheral artery disease Dysphagia Orthostatic hypotension Valvular heart disease Activity: Per Instructions section Exercise/Sports: Gradually increase as tolerated Non-emergency contact: Primary Care Provider, Surgeon and Oncologist Call non-emergency contact if: you have any medication questions, your symptoms worsen, your pain is concerning for you and you have a fever Follow-up/Referrals: Kimmy Bradshaw PA-C [Primary Care Provider] - Diet: Heart Healthy Diet Texture: Easy to Chew Addtl Attending Provider Instructions: Follow-up with your primary care physician Kailey Bradshaw PA-C in 1 week as advised Follow-up with your oncologist for chemotherapy, blood work and follow- up as advised Follow-up with your orthopedic surgeon Dr. Null as scheduled Consider following with vascular surgeon Dr. Polk as needed --- Quit smoking tobacco as advised. --- Obtain outpatient PET scan as recommended by your oncologist. ---Continue to use waffle boots to offload heel pressure ---Complete Prednisone 100mg course tomorrow as prescribed Seek immediate medical attention if your symptoms reoccur or worsen Please take all medications as instructed on discharge list below. Please call if you have any questions or problems. You can reach a [facility] hospitalist on duty at [facility] 24 hours a day by calling [phone] Pending Studies at Discharge: No Stand-Alone Forms: My [facility], Smoking Cessation Medications and DC Order Prescriptions: New prednisone 50 mg Tablet 100 mg PO DAILY Qty: 2 0RF Continued megestrol 40 mg Tablet 40 mg PO QAM Qty: 30 0RF Ear Drops (carbamide peroxide) 6.5 % Drops 5 drp OTR BID PRN (Reason: earwax) Qty: 15 0RF Rx Instructions: Use twice a day up to 4 days as needed Cerovite Senior 0.4 mg-300 mcg- 250 mcg Tablet 1 tab PO QAM Qty: 30 0RF cyclobenzaprine 10 mg Tablet 10 mg PO BID Qty: 60 0RF atorvastatin 40 mg Tablet 40 mg PO QAM Qty: 30 0RF Rx Instructions: PER PT'S SPOUSE "WAITING TO GET FROM [place], NOT STARTED YET". polyethylene glycol 3350 [Miralax] 17 gram Powder In Packet 17 g PO QAM PRN (Reason: Constipation) Qty: 14 0RF acetaminophen 500 mg Tablet 500 mg PO Q6H PRN (Reason: Pain) Qty: 60 0RF pantoprazole [Protonix] 40 mg tablet,delayed release (DR/EC) 40 mg PO QAM Qty: 30 0RF Rx Instructions: 30 mins before breakfast on an empty stomach metoprolol tartrate [Lopressor] 50 mg tablet 50 mg PO BID Qty: 60 0RF allopurinol 300 mg Tablet 300 mg PO QAM Qty: 30 0RF albuterol sulfate 90 mcg/actuation Hfa Aerosol Inhaler 1 inh INHALATION QID PRN (Reason: sob) Qty: 6.7 0RF diltiazem HCl [Cardizem] 30 mg tablet 30 mg PO BID Qty: 60 0RF ondansetron 4 mg Tablet,Disintegrating 4 mg PO Q8H PRN (Reason: Nausea) Qty: 10 0RF midodrine 2.5 mg Tablet 2.5 mg PO TID@0800,1200,1700 Qty: 90 0RF oxycodone 5 mg Tablet 5 mg PO Q6H PRN (Reason: severe pain (scale score 7-10)) Qty: 12 0RF Discontinued oxycodone 5 mg Tablet 5 mg PO Q6H Qty: 20 0RF Rx Instructions: PER PT'S SPOUSE "HAVE NOT RECIEVED FROM [facility], NOT STARTED YET". Discharge Orders: Discharge Order (Routine); Ordered 11/23/22 Ordered By: Stefano Kramer Admission Data Admit Date/Time: 11/18/22 13:01 Attending Provider: Stefano Kramer Admit Provider: Tish Gonzalez I. Primary Care Provider: Kimmy Bradshaw Other Providers: Niyah Rojas ; Fredy Polk ; [place]
== END 2022-11-23 16:15 | disposition home health service (06) | DRG 847 ==
LOC: SUATTDRO 13:01 → 3E 13:01 → 2S 18:51

== ENCOUNTER 2022-11-26 15:27 | Inpatient (IN) ==
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
[2022-11-26 17:04] LABS: Hematocrit (blood only) 20.9 % (42.0-52.0); Hemoglobin 6.7 g/dl (14.0-18.0); Mean Corpuscular Hemoglobin 27.8 pg (25.0-34.0); Mean Corpuscular Hgb Conc 32.1 g/dL (32.0-36.0); Mean Corpuscular Volume 86.7 fL (80.0-100.0); Platelet Count 10 K/uL (130-400); RDW Coefficient of Variation 19.9 % (11.5-14.5); RDW Standard Deviation 62.1 fL (36.4-46.3); Red Blood Count 2.41 M/uL (4.70-6.10); White Blood Count 0.84 K/ul (4.8-10.8)
[2022-11-26 17:07] LABS: Albumin Level 3.1 gm/dl (3.4-5.0); BUN Creatinine Ratio 44.2 (10-20); Bilirubin Direct 0.4 mg/dl (0-0.2); Bilirubin,Total 1.4 mg/dl (0.2-1.0); Calcium 7.9 mg/dl (8.5-10.1); Creatinine Clr Calc Pharmacy 62.7 ml/min; Est GFR (African American) 91.7 ml/min; Est GFR (Non-African American) 79.1 ml/min; Magnesium 1.7 mg/dl (1.7-2.4); Potassium 3.3 mmol/L (3.5-5.1)
--- NOTE | 2022-11-26 17:14 | XRay Report ---
XR chest 1V portable HISTORY: 72 years-old Male Sepsis acute sepsis COMPARISON: Chest radiograph 11/18/2022 TECHNIQUE: AP view of the chest FINDINGS: Cardiac mediastinal and hilar silhouettes are within normal limits. Left subclavian pacer. Pulmonary emphysema. Unchanged positioning of the right-sided PICC. No pneumothorax, pleural effusion, airspace consolidation or pulmonary edema. Bones appear grossly intact. Unchanged mild right hemidiaphragmati c elevation. Left shoulder rotator cuff calcific tendinosis. IMPRESSION: 1. Emphysema without acute process. 2. Unchanged positioning of the right-sided PICC. ACT 112: Negative or not required by law. The above report was generated using voice recognition software. It may contain grammatical, syntax o r spelling errors. Electronically signed by: Michael Boateng M.D. 11/26/2022 5:13 PM
[2022-11-26] MEDS ORDERED: SODIUM CHLORIDE 0.9% 1000ML 1,000 ML IV ONE (17:16)
[2022-11-26] MEDS ORDERED: cefTRIAXone SODIUM 2,000 MG/70 ML BAG IV STA (17:16)
[2022-11-26] MEDS ORDERED: SODIUM CHLORIDE 0.9% 250 ML IV PRN ×2 (17:17→21:15)
[2022-11-26 17:26] LABS: Troponin I High Sensitivity 61.7 pg/ml (0-20)
[2022-11-26 17:28] LABS: ALC (manual) 0.04 K/uL (1.2-3.4); Anisocytosis Present; Hypochromasia Present; Lymphocytes # (manual) 0.04 K/uL (1.2-3.4); Lymphocytes % (manual) 5 %; Neutrophils % (manual) 95 %
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
[2022-11-26] MEDS ORDERED: ALBUTEROL HFA 8 GM INHALER INH PRN (18:49)
[2022-11-26] MEDS ORDERED: CARBAMIDE PEROXIDE 6.5% 15 ML BTL OTR PRN (18:49)
[2022-11-26 20:30] LABS: Appearance Urine Clear (Clear); Bilirubin Urine Negative (Negative); Blood Urine Negative (Negative); Color Urine Yellow; Glucose Urine UA Negative (Negative); Ketones Urine Negative (Negative); Leukocyte Esterase Urine Negative (Negative); Nitrite Urine Negative (Negative); Protein Urine Negative (Negative); Specific Gravity Urine 1.017 (1.000-1.030); Urobilinogen Urine Negative (Negative); pH Urine 5.5 (4.5-7.5)
[2022-11-26] MEDS ORDERED: dilTIAZem HCL 30 MG TAB PO SCH (21:00)
[2022-11-26] MEDS ORDERED: DEXTROSE 50% 50 ML SYRINGE IV PRN (21:15)
[2022-11-26] MEDS ORDERED: MAGNESIUM HYDROXIDE SUSP 30 ML UDC PO PRN (21:15)
[2022-11-26] MEDS ORDERED: GLUCAGON FOR INJ 1 MG VIAL SQ PRN (21:15)
[2022-11-26] MEDS ORDERED: POTASSIUM CHLORIDE 20 MEQ/15 ML UDC PO ONE (21:15)
[2022-11-26] MEDS ORDERED: GLUCOSE 10 TAB/TUBE PO PRN (21:15)
[2022-11-26] MEDS ORDERED: POLYETHYLENE (MIRALAX) 17 GM PACK PO PRN (21:15)
[2022-11-26] MEDS ORDERED: ALUMINUM/MAGNESIUM SUSP 30 ML UDC PO PRN (21:15)
[2022-11-26] MEDS ORDERED: ONDANSETRON INJ 2 MG/ML 2 ML VIAL IV PRN (21:15)
[2022-11-26] MEDS ORDERED: GLUCOSE 40% GEL 15 GM TUBE PO PRN (21:15)
[2022-11-26] MEDS ORDERED: CARBOHYDRATES FOR HYPOGLYCEMIA PO PRN (21:15)
[2022-11-26] MEDS ORDERED: MEROPENEM 1,000 MG in SYRINGE 0 ML IV SCH (21:15)
[2022-11-26] MEDS: HYDROCODONE/ACETAMINOPHEN 7.5/325MG TAB PO PRN (21:44)
[2022-11-26] MEDS: CYCLOBENZAPRINE HCL 10 MG TAB PO SCH (21:45)
[2022-11-26] MEDS: METOPROLOL TARTRATE 50 MG TAB PO SCH (21:45)
[2022-11-26] MEDS ORDERED: ACETAMINOPHEN 325 MG TAB PO SCH (22:00)
[2022-11-26] MEDS ORDERED: diphenhydrAMINE Capsule 25 MG CAP PO SCH (22:00)
[2022-11-26 22:56] LABS: Hematocrit (blood only) 20.6 % (42.0-52.0); Hemoglobin 6.7 g/dl (14.0-18.0); Mean Corpuscular Hemoglobin 28.3 pg (25.0-34.0); Mean Corpuscular Hgb Conc 32.5 g/dL (32.0-36.0); Mean Corpuscular Volume 86.9 fL (80.0-100.0); Platelet Count 10 K/uL (130-400); RDW Standard Deviation 63.2 fL (36.4-46.3); Red Blood Count 2.37 M/uL (4.70-6.10)
[2022-11-26 22:59] LABS: ALC (manual) 0.09 K/uL (1.2-3.4); ANC (manual) 0.61 K/uL (1.4-6.5); Anisocytosis Present; Lymphocytes # (manual) 0.09 K/uL (1.2-3.4); Lymphocytes % (manual) 13 %; Neutrophils # (manual) 0.61 K/uL (1.40-6.50); Neutrophils % (manual) 87 %
[2022-11-27] MEDS: MEROPENEM 500 MG in SYRINGE 0 ML IV SCH ×3 (01:24→08:41)
[2022-11-27] MEDS: oxyCODONE HCL IR 5 MG TAB (IMMEDIATE RELEASE) PO PRN (01:24)
[2022-11-27] MEDS ORDERED: diphenhydrAMINE Capsule 25 MG CAP PO ONE (01:48)
[2022-11-27 04:55] LABS: BUN Creatinine Ratio 41.3 (10-20); Calcium 8.2 mg/dl (8.5-10.1); Creatinine Clr Calc Pharmacy 64.7 ml/min; Est GFR (African American) 95.3 ml/min; Est GFR (Non-African American) 82.2 ml/min; Potassium 4.3 mmol/L (3.5-5.1)
[2022-11-27] MEDS: HYDROCODONE/ACETAMINOPHEN 7.5/325MG TAB PO PRN ×2 (06:19→18:01)
[2022-11-27 07:44] LABS: Hemoglobin 9.3 g/dl (14.0-18.0); Mean Corpuscular Hemoglobin 28.4 pg (25.0-34.0); Mean Corpuscular Hgb Conc 33.2 g/dL (32.0-36.0); Mean Corpuscular Volume 85.4 fL (80.0-100.0); Platelet Count 8 K/uL (130-400); RDW Coefficient of Variation 19.3 % (11.5-14.5); RDW Standard Deviation 58.9 fL (36.4-46.3); Red Blood Count 3.28 M/uL (4.70-6.10); White Blood Count 0.88 K/ul (4.8-10.8)
--- NOTE | 2022-11-27 08:05 | Electrocardiogram Report ---
Test Reason : Blood Pressure : / mmHG Vent. Rate : 087 BPM Atrial Rate : 087 BPM P-R Int : 128 ms QRS Dur : 086 ms QT Int : 382 ms P-R-T Axes : 050 000 -20 degrees QTc Int : 459 ms Sinus rhythm with Premature supraventricular complexes Left atrial enlargement Borderline ECG When compared with ECG of 19-NOV-2022 05:45, No significant change was found Confirmed by Vinny Gan ([id number]) on 11/27/2022 8:05:42 AM Referred By: REFERRED SELF Confirmed By:Vinny Gan
[2022-11-27 08:13] LABS: Platelet Estimate Signific. Decreased (Normal)
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
--- NOTE | 2022-11-27 08:33 | XRay Report ---
XR chest 1V portable CLINICAL HISTORY: post-operative coughing and wheezing TECHNIQUE: Single frontal radiograph of the chest was obtained. Comparison: Comparison is made to chest radiograph 12/16/2022 FINDINGS: Dual lead pacemaker is seen. Stable right PICC. Cardiomegaly is noted. The aortic arch is calcified. Emphysematous changes are seen. No evidence of pleural effusion or pneumothorax. IMPRESSION: No evidence of acute abnormality. In particular no pneumothorax or pneumonia. ACT 112: Negative or not required by law. Electronically signed by: Kvng Delatorre M.D. 11/27/2022 8:32 AM
[2022-11-27] MEDS: MIDODRINE HCL 2.5 MG TAB PO SCH ×3 (08:41→16:19)
[2022-11-27] MEDS: CYCLOBENZAPRINE HCL 10 MG TAB PO SCH ×2 (08:41→20:51)
[2022-11-27] MEDS: METOPROLOL TARTRATE 50 MG TAB PO SCH ×2 (08:41→20:50)
[2022-11-27] MEDS: ATORVASTATIN 40 MG TAB PO SCH (10:27)
[2022-11-27] MEDS: CEROVITE ADV FORMULA TAB PO SCH (10:27)
[2022-11-27] MEDS: allopurinoL 300 MG TAB PO SCH (10:27)
[2022-11-27] MEDS: MEGESTROL ACETATE 40 MG TAB PO SCH (10:27)
[2022-11-27] MEDS: FILGRASTIM 480 MCG/1.6 ML VIAL SC SCH (10:27)
[2022-11-27] MEDS: PANTOprazole 40 MG TAB PO SCH (10:27)
[2022-11-27 11:19] LABS: Uric Acid 3.1 mg/dl (2.6-7.2)
--- NOTE | 2022-11-27 14:01 | Hospitalist Progress Note ---
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 Patient was recently discharged with an admission 11/18 to 11/23 secondary to fall at home and right hip fracture status post right intramedullary nail placement on 10/[address] Null. Patient was at that point discharged to SNF for PT OT and rehabilitation which was necessary for completion prior to initiation of chemotherapy treatment per his oncologist. Patient has been home for 3 days [facility] and has been, increasingly challenging to care for physically due to increased weakness. Pt was receiving platelet transfusion in the [facility] when he became shaky and shivering (s/p solumedrol and benadryl in [facility]) and hence was sent to ED for evaluation. He is being managed for the following: Diffuse B Cell Lymphoma of head/neck: s/p 1 cycle of RCEOP (11/18/22 - 11/21/22). Chronic myelomonocytic leukemia: Chronic Thrombocytopenia: Transfusion reaction/to platelets transfusion: Recently discharged 11/23 with PICC line. Last Admission marrow biopsy consistent with CMML with multiple mutations including SRS F2 and TET 2 11/19/22 CT Neck:. The majority of the enlarged right cervical lymph nodes seen on the prior study are almost completely cystic/necrotic and have also slightly increased in size. Neoplastic/metastatic disease of the diagnosis of exclusion. Of note, these were previously biopsied. There are few new mildly enlarged right posterior cervical chain lymph nodes. Emphysema. Admitting: WBC 0.84K; Hb 6.7; Plt 10K; CXR w/ no acute findings/no pna or ptx. Continue allopurinol for tumor lysis syndrome prophylaxis Hem Onc on board, d/w hem onc 11/27 - filgrastim for 2 to 3 days, goal of Hb >7.5 and Plt >15K. Pt will require premedications prior to transfusion as OP s/p 2 units prbc and 1 unit platelets. Repeat CBC at 2PM, transfuse rbc or platelets as needed. maintain neutropenic precaution. Needs outpatient PET scan that has not occured yet. Increase blood lactic acid level: Lactate 5.7 at presentation with other labs as above at presentation. suspect related to thrombocytopenia and disease process. Patient with no signs and symptoms of infection 1 to 2 weeks prior to arrival per Pt. Procalcitonin at presentation was negative. Lactate downtrending. UA and CXR negative for infection at presentation. Patient reports being at his baseline. Will discontinue meropenem and monitor him off of antibiotic as long as he is here. Follow-up admitting blood culture. Maintain neutropenic precaution. Goals of care; counseling/discussion: noted prior attending's/team d/w pt on 11/26. Will follow palliative care. Severe protein calorie malnutrition: Significant weight loss > 30 pounds since 08/17. Continue Megace; per this was never started post discharge Frequent falls:Recent R hip fx s/p IM nail by Dr. Null 10/27/22. Pt/ot; Fall precaution. f/u ortho on dc as scheduled prior. PAD: c/w statin. ABIs done on 03/17 showed R 0.87 and L 0.85 at rest concerning for occlusive disease to b/l SFA and tibial artery along with L iliac disease. Arterial Doppler:Moderate atherosclerotic plaque within the bilateral lower extremities. Suspected occlusion of the distal left posterior tibial artery, otherwise patent vessels. Monophasic flow within the bilateral calf vessels. H/o Dysphagia Video swallow:few episodes of trace silent aspiration with the thin liquid barium only. Aspiration precautions Appreciate speech therapy recommendations Continue moist~cut easy to chew diet with thin liquids No need for further speech therapy at this point. SSS S/P PPM -Orthostatic hypotension; SBP mid 90s in ED. MAP greater than 60 -Valvular heart disease -H/O PSVT -continue diltiazem, metoprolol; reevaluate with hold parameters pending continued hypotension -Last admission cardiology started midodrine; per this was not continued post discharge COPD: c/w home inhalers. no signs of exacerbation. Disposition: PCP: Dr. Bradshaw Code Status: DNR/DNI VTE Prophylaxis: Teds and SCDs for now, will await fobt prior to chemo px. ambulation as 2-3 times a day. Admission and Anticipated Discharge Date Admission Date: November 26, 2022 Subjective Patient seen and examined at bedside as a follow-up of history of diffuse B-cell lymphoma of head and neck and chronic myelomonocytic leukemia who was admitted due to reaction to platelets transfusion at [facility]. Patient was sitting up in bed, eating his lunch, NAD, reports no new acute event overnight, reports no headache or dizziness or chest pain or belly pain or blood in the stool or cough or sputum or any febrile illness or viral illness in the last 1 to 2 weeks prior to arrival. Patient reports feeling better and at his baseline. The only symptom he had was chills and shivers while transfusing platelets at [facility] clinic on the day of admission. Physical Exam Physical Exam: GENERAL: Alert and oriented x3. NAD, on RA. Thin/frail/weak appearing. HEENT: No pallor, no icterus. Pupils equal, round and reactive to light. Oral mucosa moist. NECK: No JVD, no neck masses. HEART: S1 and S2 heard. Regular rate and rhythm. No murmur, no gallop. RESPIRATORY SYSTEM: Normal AP diameter. No accessory muscle use. No wheezing, no crackles. ABDOMEN: Soft, bowel sounds present, nontender, no distention. CENTRAL NERVOUS SYSTEM: No facial droop. Speech is clear. Obeys simple commands. Moves extremities. EXTREMITIES: No edema, no erythema seen. Results & Data Results & Data ([facility]) Vital Signs (Past 12 Hours) Vital Signs Temp Pulse Pulse Resp BP BP Pulse Ox 11/27/22 11:41 87 11/27/22 11:40 87 14 147/79 H 98 11/27/22 09:00 36.5 C 79 16 141/81 H 99 11/27/22 10:10 82 11/27/22 10:47 36.7 C 75 14 147/76 H 94 11/27/22 10:17 36.6 C 78 14 128/62 96 11/27/22 10:02 36.6 C 82 14 134/71 99 11/27/22 04:55 36.5 C 80 14 121/74 99 11/27/22 09:43 36.5 C 78 14 147/70 H 98 11/27/22 05:24 11/27/22 05:24 36.6 C 76 18 165/93 H 92 11/27/22 05:22 76 11/27/22 04:16 36.7 C 77 18 143/80 H 98 11/27/22 03:16 37.2 C 11/27/22 03:16 37.2 C 81 18 135/74 98 11/27/22 02:46 37.6 C H 11/27/22 02:45 37.6 C H 80 18 136/72 97 11/27/22 02:31 37.1 C 78 16 133/70 100 11/27/22 02:15 36.8 C 84 18 126/67 97 11/27/22 01:45 36.3 C L 82 18 123/68 99 O2 Del Method O2 Flow Rate 11/27/22 11:41 11/27/22 11:40 11/27/22 09:00 Room Air 11/27/22 10:10 11/27/22 10:47 11/27/22 10:17 11/27/22 10:02 11/27/22 04:55 11/27/22 09:43 11/27/22 05:24 Room Air 11/27/22 05:24 Room Air 11/27/22 05:22 11/27/22 04:16 3 11/27/22 03:16 11/27/22 03:16 3 11/27/22 02:46 11/27/22 02:45 3 11/27/22 02:31 3 11/27/22 02:15 3 11/27/22 01:45 3
[2022-11-27 15:03] LABS: Hematocrit (blood only) 26.6 % (42.0-52.0); Hemoglobin 8.9 g/dl (14.0-18.0); Mean Corpuscular Hemoglobin 28.2 pg (25.0-34.0); Mean Corpuscular Hgb Conc 33.5 g/dL (32.0-36.0); Mean Corpuscular Volume 84.2 fL (80.0-100.0); Platelet Count 12 K/uL (130-400); RDW Coefficient of Variation 19.4 % (11.5-14.5); RDW Standard Deviation 57.8 fL (36.4-46.3); Red Blood Count 3.16 M/uL (4.70-6.10); White Blood Count 1.04 K/ul (4.8-10.8)
[2022-11-27] MEDS: MELATONIN 3 MG TAB PO PRN (20:50)
[2022-11-28] MEDS: HYDROCODONE/ACETAMINOPHEN 7.5/325MG TAB PO PRN ×2 (04:16→19:12)
[2022-11-28 07:39] LABS: BUN Creatinine Ratio 29.9 (10-20); Calcium 7.7 mg/dl (8.5-10.1); Creatinine Clr Calc Pharmacy 76.4 ml/min; Est GFR (African American) 104.3 ml/min; Magnesium 1.8 mg/dl (1.7-2.4); Phosphorus 2.2 mg/dl (2.5-4.9); Potassium 3.6 mmol/L (3.5-5.1)
[2022-11-28 07:51] LABS: Hematocrit (blood only) 27.3 % (42.0-52.0); Hemoglobin 9.1 g/dl (14.0-18.0); Mean Corpuscular Hemoglobin 28.4 pg (25.0-34.0); Mean Corpuscular Hgb Conc 33.3 g/dL (32.0-36.0); Mean Corpuscular Volume 85.3 fL (80.0-100.0); Nucleated RBC # (auto) 0.03 K/uL (0-0.12); Nucleated RBC % (auto) 2.4 %; Platelet Count 8 K/uL (130-400); RDW Coefficient of Variation 19.8 % (11.5-14.5); RDW Standard Deviation 60.2 fL (36.4-46.3); White Blood Count 1.24 K/ul (4.8-10.8)
[2022-11-28] MEDS: METOPROLOL TARTRATE 50 MG TAB PO SCH ×2 (08:33→19:14)
[2022-11-28] MEDS: CYCLOBENZAPRINE HCL 10 MG TAB PO SCH ×2 (08:34→19:14)
[2022-11-28] MEDS: MIDODRINE HCL 2.5 MG TAB PO SCH ×3 (08:34→16:11)
[2022-11-28] MEDS: allopurinoL 300 MG TAB PO SCH (08:35)
[2022-11-28] MEDS: ATORVASTATIN 40 MG TAB PO SCH (08:35)
[2022-11-28] MEDS: CEROVITE ADV FORMULA TAB PO SCH (08:35)
[2022-11-28] MEDS: MEGESTROL ACETATE 40 MG TAB PO SCH (08:35)
[2022-11-28] MEDS: PANTOprazole 40 MG TAB PO SCH (08:35)
[2022-11-28 08:44] LABS: Lymphocytes # (auto) 0.79 K/uL (1.2-3.4); Lymphocytes % (auto) 63.7 %; Monocytes # (auto) 0.11 K/uL (0.11-0.59); Monocytes % (auto) 8.9 %; Neutrophils # (auto) 0.34 K/uL (1.40-6.50); Neutrophils % (auto) 27.4 %
[2022-11-28] MEDS: FILGRASTIM 480 MCG/1.6 ML VIAL SC SCH ×2 (09:27→09:59)
[2022-11-28] MEDS: POT PHOSPHATE MONOBASIC W/ SOD TAB PO SCH ×5 (12:23→21:40)
[2022-11-28 14:47] LABS: Hematocrit (blood only) 26.5 % (42.0-52.0); Hemoglobin 8.8 g/dl (14.0-18.0); Mean Corpuscular Hemoglobin 28.2 pg (25.0-34.0); Mean Corpuscular Hgb Conc 33.2 g/dL (32.0-36.0); Mean Corpuscular Volume 84.9 fL (80.0-100.0); Nucleated RBC # (auto) 0.02 K/uL (0-0.12); Nucleated RBC % (auto) 1.6 %; Platelet Count 17 K/uL (130-400); RDW Coefficient of Variation 19.7 % (11.5-14.5); Red Blood Count 3.12 M/uL (4.70-6.10); White Blood Count 1.22 K/ul (4.8-10.8)
--- NOTE | 2022-11-28 14:49 | Hospitalist Progress Note ---
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 Patient was recently discharged with an admission 11/18 to 11/23 secondary to fall at home and right hip fracture status post right intramedullary nail placement on 10/[address] Null. Patient was at that point discharged to SNF for PT OT and rehabilitation which was necessary for completion prior to initiation of chemotherapy treatment per his oncologist. Patient has been home for 3 days [employer] and has been, increasingly challenging to care for physically due to increased weakness. Pt was receiving platelet transfusion in the [facility] when he became shaky and shivering (s/p solumedrol and benadryl in [facility]) and hence was sent to ED for evaluation. He is being managed for the following: Diffuse B Cell Lymphoma of head/neck: s/p 1 cycle of RCEOP (11/18/22 - 11/21/22). Chronic myelomonocytic leukemia: Chronic Thrombocytopenia: Transfusion reaction/to platelets transfusion: Recently discharged 11/23 with PICC line. Last Admission marrow biopsy consistent with CMML with multiple mutations including SRS F2 and TET 2 11/19/22 CT Neck:. The majority of the enlarged right cervical lymph nodes seen on the prior study are almost completely cystic/necrotic and have also slightly increased in size. Neoplastic/metastatic disease of the diagnosis of exclusion. Of note, these were previously biopsied. There are few new mildly enlarged right posterior cervical chain lymph nodes. Emphysema. Admitting: WBC 0.84K; Hb 6.7; Plt 10K; CXR w/ no acute findings/no pna or ptx. Continue allopurinol for tumor lysis syndrome prophylaxis Hem Onc on board, d/w hem onc 11/27 - filgrastim for 2 to 3 days, goal of Hb >7.5 and Plt >15K. Pt will require premedications prior to transfusion as OP s/p 2 units prbc and 2 unit platelets. Repeat CBC at 2PM, transfuse rbc or platelets as needed. maintain neutropenic precaution. Needs outpatient PET scan that has not occurred yet. Increase blood lactic acid level: Lactate 5.7 at presentation with other labs as above at presentation. suspect related to thrombocytopenia and disease process. Patient with no signs and symptoms of infection 1 to 2 weeks prior to arrival per Pt. Procalcitonin at presentation was negative. Lactate downtrended. UA and CXR negative for infection at presentation. Meropenem started empirically on 11/26 was discontinued 11/27. Pt afebrile, WBC improving, immature granulocyte is 0.00. Will repeat Procal. Follow-up admitting blood culture. Maintain neutropenic precaution. Goals of care; counseling/discussion: noted prior attending's/team d/w pt on 11/26. Will follow palliative care. Severe protein calorie malnutrition: Significant weight loss > 30 pounds since 08/17. Continue Megace; per this was never started post discharge. Appetite has been ok lately. Frequent falls:Recent R hip fx s/p IM nail by Dr. Null 10/27/22. Pt/ot; Fall precaution. f/u ortho on dc as scheduled prior. PAD: c/w statin. ABIs done on 03/17 showed R 0.87 and L 0.85 at rest concerning for occlusive disease to b/l SFA and tibial artery along with L iliac disease. Arterial Doppler:Moderate atherosclerotic plaque within the bilateral lower extremities. Suspected occlusion of the distal left posterior tibial artery, otherwise patent vessels. Monophasic flow within the bilateral calf vessels. H/o Dysphagia Video swallow:few episodes of trace silent aspiration with the thin liquid barium only. Aspiration precautions Appreciate speech therapy recommendations Continue moist~cut easy to chew diet with thin liquids No need for further speech therapy at this point. SSS S/P PPM -Orthostatic hypotension; SBP mid 90s in ED. MAP greater than 60 -Valvular heart disease -H/O PSVT -continue diltiazem, metoprolol; reevaluate with hold parameters pending continued hypotension -Last admission cardiology started midodrine; per this was not continued post discharge COPD: c/w home inhalers. no signs of exacerbation. Disposition: PCP: Dr. Bradshaw Code Status: DNR/DNI VTE Prophylaxis: Teds and SCDs for now, will await fobt prior to chemo px. ambulation as 2-3 times a day. Admission and Anticipated Discharge Date Admission Date: November 26, 2022 Subjective Patient seen and examined at bedside as a follow-up of history of diffuse B-cell lymphoma of head and neck and chronic myelomonocytic leukemia who was admitted due to reaction to platelets transfusion at [facility] clinic. Patient was lying in bed, sleepy, reports feeling weak and tired and asked "to be left alone". at bedside who reports pt w/ good appetite in AM, BM yes terday and has no other concerns except for his tiredness & off - mood which she has noticed on and off in the past as well. Pt declined any pain or new cough or any other ROS. Pt appears to be afebrile since admission. Physical Exam Physical Exam: GENERAL: sleepy, NAD, on RA. Thin/frail/weak appearing. HEENT: No pallor, no icterus. Pupils equal, round and reactive to light. Oral mucosa moist. NECK: No JVD, no neck masses. HEART: S1 and S2 heard. Regular rate and rhythm. No murmur, no gallop. RESPIRATORY SYSTEM: Normal AP diameter. No accessory muscle use. No wheezing, no crackles. ABDOMEN: Soft, bowel sounds present, nontender, no distention. CENTRAL NERVOUS SYSTEM: No facial droop. Speech is clear. Obeys simple commands. Moves extremities. EXTREMITIES: No edema, no erythema seen. Results & Data Results & Data ([facility]) Vital Signs (Past 12 Hours) Vital Signs Temp Pulse Pulse Resp BP BP Pulse Ox 11/28/22 12:11 36.9 C 82 17 140/65 99 11/28/22 08:00 11/28/22 09:41 36.5 C 95 H 16 129/66 95 11/28/22 09:24 36.5 C 87 16 129/66 97 11/28/22 09:09 36.3 C L 88 18 134/68 97 11/28/22 07:57 36.5 C 87 18 112/56 L 92 03/05/23 05:40 11/28/22 03:47 36.8 C 86 20 120/78 95 O2 Del Method O2 Del Method 11/28/22 12:11 Room Air 11/28/22 08:00 Room Air 11/28/22 09:41 11/28/22 09:24 11/28/22 09:09 11/28/22 07:57 Room Air 11/28/22 05:40 Room Air 11/28/22 03:47 Room Air
[2022-11-28] MEDS ORDERED: POTASSIUM PHOS 3 MMOL/1 ML INFUSION IV STA (21:07)
[2022-11-28] MEDS ORDERED: POTASSIUM PHOSPHATE 15 MMOL in SODIUM CHLORIDE 0.9% 250 ML IV ONE (21:15)
[2022-11-29] MEDS: oxyCODONE HCL IR 5 MG TAB (IMMEDIATE RELEASE) PO PRN ×3 (01:00→17:37)
[2022-11-29] MEDS: HYDROCODONE/ACETAMINOPHEN 7.5/325MG TAB PO PRN ×2 (06:26→22:53)
[2022-11-29 06:35] LABS: BUN Creatinine Ratio 28.4 (10-20); Calcium 7.8 mg/dl (8.5-10.1); Creatinine Clr Calc Pharmacy 79.9 ml/min; Est GFR (African American) 106.1 ml/min; Est GFR (Non-African American) 91.5 ml/min; Magnesium 1.7 mg/dl (1.7-2.4); Phosphorus 2.9 mg/dl (2.5-4.9); Potassium 3.9 mmol/L (3.5-5.1)
[2022-11-29 07:20] LABS: Hematocrit (blood only) 27.7 % (42.0-52.0); Mean Corpuscular Hemoglobin 27.8 pg (25.0-34.0); Mean Corpuscular Hgb Conc 32.5 g/dL (32.0-36.0); Mean Corpuscular Volume 85.5 fL (80.0-100.0); Platelet Count 12 K/uL (130-400); RDW Coefficient of Variation 19.8 % (11.5-14.5); RDW Standard Deviation 60.5 fL (36.4-46.3); Red Blood Count 3.24 M/uL (4.70-6.10)
[2022-11-29 07:33] LABS: Dohle Bodies 1+; Platelet Estimate Signific. Decreased (Normal); Polychromasia 1+; Toxic Vacuolation 1+
[2022-11-29 07:42] LABS: Lymphocytes # (auto) 0.91 K/uL (1.2-3.4); Monocytes # (auto) 0.14 K/uL (0.11-0.59); Neutrophils # (auto) 0.35 K/uL (1.40-6.50)
[2022-11-29] MEDS: allopurinoL 300 MG TAB PO SCH (08:15)
[2022-11-29] MEDS: MEGESTROL ACETATE 40 MG TAB PO SCH (08:15)
[2022-11-29] MEDS: ATORVASTATIN 40 MG TAB PO SCH (08:15)
[2022-11-29] MEDS: CEROVITE ADV FORMULA TAB PO SCH (08:15)
[2022-11-29] MEDS: PANTOprazole 40 MG TAB PO SCH (08:15)
[2022-11-29] MEDS: METOPROLOL TARTRATE 50 MG TAB PO SCH ×2 (08:16→22:01)
[2022-11-29] MEDS: CYCLOBENZAPRINE HCL 10 MG TAB PO SCH ×2 (08:16→22:01)
[2022-11-29] MEDS: MIDODRINE HCL 2.5 MG TAB PO SCH ×3 (08:35→17:29)
[2022-11-29] MEDS: POT PHOSPHATE MONOBASIC W/ SOD TAB PO SCH ×4 (08:36→22:01)
[2022-11-29] MEDS: FILGRASTIM 480 MCG/1.6 ML VIAL SC SCH (08:50)
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
[2022-11-29] MEDS: ACETAMINOPHEN 325 MG TAB PO PRN (12:52)
[2022-11-29] MEDS ORDERED: METOPROLOL TARTRATE 25 MG TAB PO STA (14:20)
[2022-11-29] MEDS ORDERED: MAGNESIUM SULFATE / D5W 1 GM/100 ML BAG IV ONE (14:30)
--- NOTE | 2022-11-29 14:34 | Hospitalist Progress Note ---
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 Patient was recently discharged with an admission 11/18 to 11/23 secondary to fall at home and right hip fracture status post right intramedullary nail placement on 10/[address] Null. Patient was at that point discharged to SNF for PT OT and rehabilitation which was necessary for completion prior to initiation of chemotherapy treatment per his oncologist. 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 Pt was receiving platelet transfusion [facility] when he became shaky and shivering (s/p solumedrol and benadryl in [facility]) and hence was sent to ED for evaluation. He is being managed for the following: Diffuse B Cell Lymphoma of head/neck: s/p 1 cycle of RCEOP (11/18/22 - 11/21/22). Chronic myelomonocytic leukemia: Chronic Thrombocytopenia: Transfusion reaction/to platelets transfusion: Recently discharged 11/23 with PICC line. Last Admission marrow biopsy consistent with CMML with multiple mutations including SRS F2 and TET 2 11/19/22 CT Neck:. The majority of the enlarged right cervical lymph nodes seen on the prior study are almost completely cystic/necrotic and have also slightly increased in size. Neoplastic/metastatic disease of the diagnosis of exclusion. Of note, these were previously biopsied. There are few new mildly enlarged right posterior cervical chain lymph nodes. Emphysema. Admitting: WBC 0.84K; Hb 6.7; Plt 10K; CXR w/ no acute findings/no pna or ptx. Continue allopurinol for tumor lysis syndrome prophylaxis Hem Onc on board, d/w hem onc 11/27 - filgrastim for 2 to 3 days, goal of Hb >7.5 and Plt >15K. Pt will require premedications prior to transfusion as OP s/p 2 units prbc and 3 unit platelets. Repeat CBC at 2PM, transfuse rbc or platelets as needed. maintain neutropenic precaution. Needs outpatient PET scan that has not occurred yet. Filgrastim will be done today. Increase blood lactic acid level: Lactate 5.7 at presentation with other labs as above at presentation. suspect related to thrombocytopenia and disease process. Patient with no signs and symptoms of infection 1 to 2 weeks prior to arrival per Pt. Procalcitonin at presentation was negative. Lactate downtrended. UA and CXR negative for infection at presentation. Meropenem started empirically on 11/26 was discontinued 11/27. Pt afebrile, WBC improving, immature granulocyte is 0.00. Repeat procal on 11/28 is negative. Follow-up admitting blood culture. Maintain neutropenic precaution. Goals of care; counseling/discussion: noted prior attending's/team d/w pt on 11/26. Will follow palliative care. Severe protein calorie malnutrition: Significant weight loss > 30 pounds since 08/17. Continue Megace; per this was never started post discharge. Appetite has been ok lately. Frequent falls:Recent R hip fx s/p IM nail by Dr. Null 10/27/22. Pt/ot; Fall precaution. f/u ortho on dc as scheduled prior. PAD: c/w statin. ABIs done on 03/17 showed R 0.87 and L 0.85 at rest concerning for occlusive disease to b/l SFA and tibial artery along with L iliac disease. Arterial Doppler:Moderate atherosclerotic plaque within the bilateral lower extremities. Suspected occlusion of the distal left posterior tibial artery, otherwise patent vessels. Monophasic flow within the bilateral calf vessels. H/o Dysphagia Video swallow:few episodes of trace silent aspiration with the thin liquid barium only. Aspiration precautions Appreciate speech therapy recommendations Continue moist~cut easy to chew diet with thin liquids No need for further speech therapy at this point. SSS S/P PPM -Orthostatic hypotension; SBP mid 90s in ED. MAP greater than 60 -Valvular heart disease -H/O PSVT -continue diltiazem, metoprolol; reevaluate with hold parameters pending continued hypotension -Last admission cardiology started midodrine; per this was not continued post discharge COPD: c/w home inhalers. no signs of exacerbation. Disposition: PCP: Dr. Bradshaw Code Status: DNR/DNI VTE Prophylaxis: Teds and SCDs for now, will await fobt prior to chemo px. ambulation as 2-3 times a day. Dispo: PT/OT eval; pending pall eval; cm to assist. Admission and Anticipated Discharge Date Admission Date: November 26, 2022 Subjective Patient seen and examined at bedside as a follow-up of history of diffuse B-cell lymphoma of head and neck and chronic myelomonocytic leukemia who was admitted due to reaction to platelets transfusion at [facility] clinic. Patient was lying in bed, is more alert and reports feeling better today, patient is aware that he was not feeling okay yesterday but did not have any specific complaints, he just wanted to be left alone yesterday. Patient reports having good appetite and moving bowels okay. Patient denies any headache or fever or chills or sore throat or cough or chest pain or belly pain or pain or burning with passing urine. Pt's metoprolol was held per parameter in AM; communicated w/ RN to recheck parameters in half to 1 hours time in such situation rather than completely forgoing metoprolol dose. HR high now; will order one time dose. Communicated to administer CATHIE. Physical Exam Physical Exam: GENERAL: alert and awake, NAD, on RA. Thin/frail/weak appearing. HEENT: No pallor, no icterus. Pupils equal, round and reactive to light. Oral mucosa moist. NECK: No JVD, no neck masses. HEART: S1 and S2 heard. Regular rate and rhythm. No murmur, no gallop. RESPIRATORY SYSTEM: Normal AP diameter. No accessory muscle use. No wheezing, no crackles. ABDOMEN: Soft, bowel sounds present, nontender, no distention. CENTRAL NERVOUS SYSTEM: No facial droop. Speech is clear. Obeys simple commands. Moves extremities. EXTREMITIES: No edema, no erythema seen. Results & Data Results & Data ([facility]) Vital Signs (Past 12 Hours) Vital Signs Temp Pulse Pulse Resp BP BP Pulse Ox 11/29/22 12:22 36.9 C 122 H 18 120/94 93 11/29/22 09:58 36.4 C L 106 H 16 119/63 93 11/29/22 08:50 34.9 C L 108 H 16 119/63 93 11/29/22 08:35 36.2 C L 111 H 16 130/66 93 11/29/22 08:10 36.0 C L 100 H 16 95/61 L 95 11/29/22 07:38 36.8 C 112 H 18 112/78 98 11/29/22 05:42 11/29/22 02:50 36.5 C 94 H 18 115/66 97 O2 Del Method O2 Del Method 11/29/22 12:22 Room Air 11/29/22 09:58 11/29/22 08:50 11/29/22 08:35 11/29/22 08:10 11/29/22 07:38 Room Air 11/29/22 05:42 Room Air 11/29/22 02:50 Room Air
[2022-11-30] MEDS: oxyCODONE HCL IR 5 MG TAB (IMMEDIATE RELEASE) PO PRN ×3 (01:32→16:04)
[2022-11-30 08:07] LABS: BUN Creatinine Ratio 30.4 (10-20); Calcium 8.2 mg/dl (8.5-10.1); Creatinine Clr Calc Pharmacy 85.9 ml/min; Est GFR (African American) 109.2 ml/min; Est GFR (Non-African American) 94.2 ml/min; Magnesium 1.8 mg/dl (1.7-2.4); Phosphorus 3.5 mg/dl (2.5-4.9); Potassium 3.7 mmol/L (3.5-5.1)
[2022-11-30 08:44] LABS: Hematocrit (blood only) 27.2 % (42.0-52.0); Hemoglobin 8.9 g/dl (14.0-18.0); Mean Corpuscular Hemoglobin 27.6 pg (25.0-34.0); Mean Corpuscular Hgb Conc 32.7 g/dL (32.0-36.0); Mean Corpuscular Volume 84.5 fL (80.0-100.0); Platelet Count 16 K/uL (130-400); RDW Coefficient of Variation 19.8 % (11.5-14.5); RDW Standard Deviation 61.1 fL (36.4-46.3); Red Blood Count 3.22 M/uL (4.70-6.10); White Blood Count 1.94 K/ul (4.8-10.8)
[2022-11-30] MEDS: PANTOprazole 40 MG TAB PO SCH (09:30)
[2022-11-30] MEDS: allopurinoL 300 MG TAB PO SCH (09:30)
[2022-11-30] MEDS: MEGESTROL ACETATE 40 MG TAB PO SCH (09:30)
[2022-11-30] MEDS: CEROVITE ADV FORMULA TAB PO SCH (09:30)
[2022-11-30] MEDS: ATORVASTATIN 40 MG TAB PO SCH (09:30)
[2022-11-30] MEDS: METOPROLOL TARTRATE 50 MG TAB PO SCH ×2 (09:30→20:27)
[2022-11-30] MEDS: CHLORASEPTIC 1.4% SOLN 180 ML BTL MT PRN ×2 (09:31→16:04)
--- NOTE | 2022-11-30 10:23 | XRay Report ---
XR chest 1V portable HISTORY: 72 years-old Male f/u, now w cough; immunocompromised pt acute cough COMPARISON: 11/27/2022 TECHNIQUE: AP view of the chest FINDINGS: Cardiac silhouette is enlarged. Left subclavian pacer. Right-sided PICC is again noted with distal ti p in Dislocation of the mid SVC. Atherosclerosis of the aorta. Emphysema with mild chronic interstitial co arsening. No pneumothorax, pleural effusion, airspace consolidation or pulmonary edema. Bones of the chest appear grossly intact. Bilateral shoulder rotator cuff calcific tendinosis. IMPRESSION: Emphysema without acute process. ACT 112: Negative or not required by law. The above report was generated using voice recognition software. It may contain grammatical, syntax o r spelling errors. Electronically signed by: Michael Boateng M.D. 11/30/2022 10:22 AM
[2022-11-30] MEDS: CYCLOBENZAPRINE HCL 10 MG TAB PO SCH ×2 (10:29→20:26)
[2022-11-30] MEDS: MIDODRINE HCL 2.5 MG TAB PO SCH ×3 (10:29→17:00)
[2022-11-30] MEDS: DOXYCYCLINE HYCLATE 100 MG CAP PO SCH ×2 (10:29→20:27)
[2022-11-30 12:08] LABS: Adenovirus PCR Not Detected (NotDetected); Bordetella parapertussis PCR Not Detected (NotDetected); Bordetella pertussis PCR Not Detected (NotDetected); Chlamydia pneumoniae PCR Not Detected (NotDetected); Coronavirus 229E PCR Not Detected (NotDetected); Coronavirus CoV-2 (COVID19)PCR Not Detected (NotDetected); Coronavirus HKU1 PCR Not Detected (NotDetected); Coronavirus NL63 PCR Not Detected (NotDetected); Coronavirus OC43PCR Not Detected (NotDetected); Human Metapneumovirus PCR Not Detected (NotDetected); Influenza A PCR Not Detected (NotDetected); Influenza B PCR Not Detected (NotDetected); Mycoplasma pneumoniae PCR Not Detected (NotDetected); Parainfluenza Virus 1 PCR Not Detected (NotDetected); Parainfluenza Virus 2 PCR Not Detected (NotDetected); Parainfluenza Virus 3 PCR Not Detected (NotDetected); Parainfluenza Virus 4 PCR Not Detected (NotDetected); Respiratory Syncytial VirusPCR Not Detected (NotDetected); Rhinovirus/Enterovirus PCR Not Detected (NotDetected)
--- NOTE | 2022-11-30 13:56 | Hospitalist Progress Note ---
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 Patient was recently discharged with an admission 11/18 to 11/23 secondary to fall at home and right hip fracture status post right intramedullary nail placement on 10/[address] Null. Patient was at that point discharged to SNF for PT OT and rehabilitation which was necessary for completion prior to initiation of chemotherapy treatment per his oncologist. Patient has been home for 3 days [employer]QUAT[employer] DIRECT[employer] and has been, increasingly challenging to care for physically due to increased weakness. Pt was receiving platelet transfusion in [facility] when he became shaky and shivering (s/p solumedrol and benadryl in [facility]) and hence was sent to ED for evaluation. He is being managed for the following: Diffuse B Cell Lymphoma of head/neck: s/p 1 cycle of RCEOP (11/18/22 - 11/21/22). Chronic myelomonocytic leukemia: Chronic Thrombocytopenia: Transfusion reaction/to platelets transfusion: Recently discharged 11/23 with PICC line. Last Admission marrow biopsy consistent with CMML with multiple mutations including SRS F2 and TET 2 11/19/22 CT Neck:. The majority of the enlarged right cervical lymph nodes seen on the prior study are almost completely cystic/necrotic and have also slightly increased in size. Neoplastic/metastatic disease of the diagnosis of exclusion. Of note, these were previously biopsied. There are few new mildly enlarged right posterior cervical chain lymph nodes. Emphysema. Admitting: WBC 0.84K; Hb 6.7; Plt 10K; CXR w/ no acute findings/no pna or ptx. Continue allopurinol for tumor lysis syndrome prophylaxis Hem Onc on board, d/w hem onc 11/27 - filgrastim for 2 to 3 days, goal of Hb >7.5 and Plt >15K. Pt will require premedications prior to transfusion as OP s/p 2 units prbc and 3 unit platelets. s/p filgrastim for 3 days. Transfuse rbc or platelets as needed. Needs outpatient PET scan that has not occurred yet. Increase blood lactic acid level: Lactate 5.7 at presentation with other labs as above at presentation. suspect related to thrombocytopenia and disease process. Patient with no signs and symptoms of infection 1 to 2 weeks prior to arrival per Pt. Procalcitonin at presentation was negative. Lactate downtrended. UA and CXR negative for infection at presentation. Meropenem started empirically on 11/26 was discontinued 11/27. Pt afebrile, WBC improving, immature granulocyte is 0.00. Repeat procal on 11/28 is negative. Follow-up admitting blood culture- NG 48 hours. Sore throat/?bronchitis: Pt complains of sore throat 11/30 a/w cough w/ clear mucus. 11/28 Viral panel negative; 11/28 CXR w/ no acute findings. 11/28 Strep throat PCR negative. Pt afebrile. Chloraseptic spray. doxy empirically for bronchitis given immunocompromised status. symptomatic care. Goals of care; counseling/discussion: noted prior attending's/team d/w pt on 11/26. Appreciate pall care recs ---> pt can have both hospice level nursing support and chemo under his [facility] benefit; CM to assist w/ dc planning. Severe protein calorie malnutrition: Significant weight loss > 30 pounds since 08/17. Continue Megace; per this was never started post discharge. Appetite has been ok lately. Frequent falls:Recent R hip fx s/p IM nail by Dr. Null 10/27/22. Pt/ot; Fall precaution. f/u ortho on dc as scheduled prior. PAD: c/w statin. ABIs done on 03/17 showed R 0.87 and L 0.85 at rest concerning for occlusive disease to b/l SFA and tibial artery along with L iliac disease. Arterial Doppler:Moderate atherosclerotic plaque within the bilateral lower extremities. Suspected occlusion of the distal left posterior tibial artery, otherwise patent vessels. Monophasic flow within the bilateral calf vessels. H/o Dysphagia Video swallow:few episodes of trace silent aspiration with the thin liquid barium only. Aspiration precautions Appreciate speech therapy recommendations Continue moist~cut easy to chew diet with thin liquids No need for further speech therapy at this point. SSS S/P PPM -Orthostatic hypotension; SBP mid 90s in ED. MAP greater than 60 -Valvular heart disease -H/O PSVT -continue diltiazem, metoprolol; reevaluate with hold parameters pending continued hypotension -Last admission cardiology started midodrine; per this was not continued post discharge COPD: c/w home inhalers. no signs of exacerbation. Disposition: PCP: Dr. Bradshaw Code Status: DNR/DNI VTE Prophylaxis: heparin sc Dispo: PT/OT eval; has acute sore throat today/likely dc [place] unless family wants to go today. ideally would monitor overnight given severely immunocompromised status since he is already in the hospital. CM to assist w/ dc plan. Admission and Anticipated Discharge Date Admission Date: November 26, 2022 Subjective Patient seen and examined at bedside as a follow-up of history of diffuse B-cell lymphoma of head and neck and chronic myelomonocytic leukemia who was admitted due to reaction to platelets transfusion at [facility]. Patient was lying in bed, is alert and reports feeling better today overall, but now he has sore throat and cough w/ clear mucus. Patient reports having good appetite but trouble swallowing due to sore throat and moving bowels okay. Patient denies any headache or fever or chills or chest pain or belly pain or pain or burning with passing urine. Pt's at bedside, update about plan of care, answered all her questions. Physical Exam Physical Exam: GENERAL: alert and awake, NAD, on RA. Thin/frail/weak appearing. HEENT: No pallor, no icterus. Pupils equal, round and reactive to light. Oral mucosa moist. erythematous oropharynx. NECK: No JVD, no neck masses. HEART: S1 and S2 heard. Regular rate and rhythm. No murmur, no gallop. RESPIRATORY SYSTEM: Normal AP diameter. No accessory muscle use. No wheezing, no crackles. ABDOMEN: Soft, bowel sounds present, nontender, no distention. CENTRAL NERVOUS SYSTEM: No facial droop. Speech is clear. Obeys simple commands. Moves extremities. EXTREMITIES: No edema, no erythema seen. Results & Data Results & Data ([facility]) Vital Signs (Past 12 Hours) Vital Signs Temp Pulse Resp BP Pulse Ox Pulse Ox O2 Del Method 11/30/22 11:34 36.6 C 110 H 18 132/68 95 Room Air 11/30/22 08:24 36.7 C 111 H 19 109/75 94 Room Air 11/30/22 07:36 Room Air 11/30/22 05:00 94 11/30/22 02:58 37.3 C 100 H 18 115/73 94 Room Air O2 Del Method 11/30/22 11:34 11/30/22 08:24 11/30/22 07:36 11/30/22 05:00 Room Air 11/30/22 02:58
[2022-11-30] MEDS: HYDROCODONE/ACETAMINOPHEN 7.5/325MG TAB PO PRN (20:26)
[2022-11-30] MEDS: MELATONIN 3 MG TAB PO PRN (20:26)
[2022-11-30] MEDS: HEPARIN SOD 5,000 UNIT/0.5 ML VIAL SQ SCH (20:29)
[2022-12-01 07:06] LABS: BUN Creatinine Ratio 25.4 (10-20); Calcium 8.6 mg/dl (8.5-10.1); Creatinine Clr Calc Pharmacy 87.1 ml/min; Est GFR (African American) 110.5 ml/min; Est GFR (Non-African American) 95.3 ml/min; Magnesium 1.7 mg/dl (1.7-2.4); Phosphorus 3.5 mg/dl (2.5-4.9); Potassium 3.6 mmol/L (3.5-5.1)
[2022-12-01 07:09] LABS: Hematocrit (blood only) 28.4 % (42.0-52.0); Hemoglobin 9.4 g/dl (14.0-18.0); Mean Corpuscular Hemoglobin 27.8 pg (25.0-34.0); Mean Corpuscular Hgb Conc 33.1 g/dL (32.0-36.0); Platelet Count 12 K/uL (130-400); RDW Coefficient of Variation 19.8 % (11.5-14.5); RDW Standard Deviation 60.1 fL (36.4-46.3); Red Blood Count 3.38 M/uL (4.70-6.10); White Blood Count 3.84 K/ul (4.8-10.8)
[2022-12-01] MEDS: oxyCODONE HCL IR 5 MG TAB (IMMEDIATE RELEASE) PO PRN ×2 (09:25→20:01)
[2022-12-01] MEDS: ATORVASTATIN 40 MG TAB PO SCH (09:26)
[2022-12-01] MEDS: allopurinoL 300 MG TAB PO SCH (09:26)
[2022-12-01] MEDS: CHLORASEPTIC 1.4% SOLN 180 ML BTL MT PRN (09:26)
[2022-12-01] MEDS: PANTOprazole 40 MG TAB PO SCH (09:26)
[2022-12-01] MEDS: METOPROLOL TARTRATE 50 MG TAB PO SCH ×2 (09:26→20:02)
[2022-12-01] MEDS: MEGESTROL ACETATE 40 MG TAB PO SCH (09:27)
[2022-12-01] MEDS: CEROVITE ADV FORMULA TAB PO SCH (09:27)
[2022-12-01] MEDS: DOXYCYCLINE HYCLATE 100 MG CAP PO SCH ×2 (09:27→20:02)
[2022-12-01] MEDS: MIDODRINE HCL 2.5 MG TAB PO SCH ×3 (09:28→17:06)
[2022-12-01] MEDS: CYCLOBENZAPRINE HCL 10 MG TAB PO SCH ×2 (09:34→20:01)
[2022-12-01] MEDS: HEPARIN SOD 5,000 UNIT/0.5 ML VIAL SQ SCH (10:37)
[2022-12-01] MEDS: HYDROCODONE/ACETAMINOPHEN 7.5/325MG TAB PO PRN (16:08)
--- NOTE | 2022-12-01 16:42 | Hospitalist Progress Note ---
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 Patient was recently discharged with an admission 11/18 to 11/23 secondary to fall at home and right hip fracture status post right intramedullary nail placement on 10/[address] Null. Patient was at that point discharged to SNF for PT OT and rehabilitation which was necessary for completion prior to initiation of chemotherapy treatment per his oncologist. 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 Pt was receiving platelet transfusion in the [facility] when he became shaky and shivering (s/p solumedrol and benadryl in [facility]) and hence was sent to ED for evaluation. He is being managed for the following: Diffuse B Cell Lymphoma of head/neck: s/p 1 cycle of RCEOP (11/18/22 - 11/21/22). Chronic myelomonocytic leukemia: Chronic Thrombocytopenia: Transfusion reaction/to platelets transfusion: Recently discharged 11/23 with PICC line. Last Admission marrow biopsy consistent with CMML with multiple mutations including SRS F2 and TET 2 11/19/22 CT Neck:. The majority of the enlarged right cervical lymph nodes seen on the prior study are almost completely cystic/necrotic and have also slightly increased in size. Neoplastic/metastatic disease of the diagnosis of exclusion. Of note, these were previously biopsied. There are few new mildly enlarged right posterior cervical chain lymph nodes. Emphysema. Admitting: WBC 0.84K; Hb 6.7; Plt 10K; CXR w/ no acute findings/no pna or ptx. Continue allopurinol for tumor lysis syndrome prophylaxis Hem Onc on board, d/w hem onc 11/27 - filgrastim for 2 to 3 days, goal of Hb >7.5 and Plt >15K. Pt will require premedications prior to transfusion as OP s/p 2 units prbc and 4 unit platelets. s/p filgrastim for 3 days. Transfuse rbc or platelets as needed. Needs outpatient PET scan that has not occurred yet. Increase blood lactic acid level: Lactate 5.7 at presentation with other labs as above at presentation. suspect related to thrombocytopenia and disease process. Patient with no signs and symptoms of infection 1 to 2 weeks prior to arrival per Pt. Procalcitonin at presentation was negative. Lactate downtrended. UA and CXR negative for infection at presentation. Meropenem started empirically on 11/26 was discontinued 11/27. Pt afebrile, WBC improving, immature granulocyte is 0.00. Repeat procal on 11/28 is negative. Follow-up admitting blood culture- NG 48 hours. Sore throat/?bronchitis: Pt complains of sore throat 11/30 a/w cough w/ clear mucus. 11/28 Viral panel negative; 11/28 CXR w/ no acute findings. 11/28 Strep throat PCR negative. Pt afebrile. Chloraseptic spray. doxy empirically for bronchitis given immunocompromised status. symptomatic care. Pressure Ulcers: Right ankle ulcer POA -unstageable and bilateral heel pressure ulcer - unstageable. WOCN on board, dressings. Goals of care; counseling/discussion: noted prior attending's/team d/w pt on 11/26. Appreciate pall care recs ---> pt can have both hospice level nursing support and chemo under his [facility] benefit; CM to assist w/ dc planning. Severe protein calorie malnutrition: Significant weight loss > 30 pounds since 08/17. Continue Megace; per this was never started post discharge. Appetite has been ok lately. Frequent falls:Recent R hip fx s/p IM nail by Dr. Null 10/27/22. Pt/ot; Fall precaution. f/u ortho on dc as scheduled prior. PAD: c/w statin. ABIs done on 03/17 showed R 0.87 and L 0.85 at rest concerning for occlusive disease to b/l SFA and tibial artery along with L iliac disease. Arterial Doppler:Moderate atherosclerotic plaque within the bilateral lower extremities. Suspected occlusion of the distal left posterior tibial artery, otherwise patent vessels. Monophasic flow within the bilateral calf vessels. H/o Dysphagia Video swallow:few episodes of trace silent aspiration with the thin liquid barium only. Aspiration precautions Appreciate speech therapy recommendations Continue moist~cut easy to chew diet with thin liquids No need for further speech therapy at this point. SSS S/P PPM -Orthostatic hypotension; SBP mid 90s in ED. MAP greater than 60 -Valvular heart disease -H/O PSVT -continue diltiazem, metoprolol; reevaluate with hold parameters pending continued hypotension -Last admission cardiology started midodrine; per this was not continued post discharge COPD: c/w home inhalers. no signs of exacerbation. Disposition: PCP: Dr. Bradshaw Code Status: DNR/DNI VTE Prophylaxis: scds. Dispo: PT/OT eval; cm to assist, awaiting placement. d/w CM regarding his medical stability and he could go, initially plan was to go home w/ home health but later on pt's said she won't be able to take care of him and hence wanted him to go to rehab. Admission and Anticipated Discharge Date Admission Date: November 26, 2022 Subjective Patient seen and examined at bedside as a follow-up of history of diffuse B-cell lymphoma of head and neck and chronic myelomonocytic leukemia who was admitted due to reaction to platelets transfusion at [facility] clinic. Patient was lying in bed, is alert and reports feeling better, reports his sore throat is about the same and has some occasional cough w/ clear mucus. Patient reports having good appetite but trouble swallowing due to sore throat, and is moving bowels okay. Patient denies any headache or fever or chills or chest pain or belly pain or pain or burning with passing urine. Pt's at bedside, update about plan of care, answered all her questions. Physical Exam Physical Exam: GENERAL: alert and awake, NAD, on RA. Thin/frail/weak appearing. HEENT: No pallor, no icterus. Pupils equal, round and reactive to light. Oral mucosa moist. erythematous oropharynx. NECK: No JVD, no neck masses. HEART: S1 and S2 heard. Regular rate and rhythm. No murmur, no gallop. RESPIRATORY SYSTEM: Normal AP diameter. No accessory muscle use. No wheezing, no crackles. ABDOMEN: Soft, bowel sounds present, nontender, no distention. CENTRAL NERVOUS SYSTEM: No facial droop. Speech is clear. Obeys simple commands. Moves extremities. EXTREMITIES: No edema, no erythema seen. Results & Data Results & Data ([facility]) Vital Signs (Past 12 Hours) Vital Signs Temp Pulse Pulse Resp BP BP Pulse Ox 12/01/22 15:50 36.8 C 109 H 16 119/78 95 12/01/22 11:28 36.8 C 100 H 17 108/61 90 12/01/22 10:42 36.7 C 99 H 16 121/64 93 12/01/22 10:22 36.8 C 101 H 16 121/64 93 12/01/22 10:08 113 H 12/01/22 09:52 37.0 C 111 H 18 124/61 93 12/01/22 09:37 36.7 C 109 H 16 123/78 93 12/01/22 09:16 36.8 C 116 H 16 122/74 93 12/01/22 08:05 36.7 C 116 H 16 109/78 93 O2 Del Method 12/01/22 15:50 Room Air 12/01/22 11:28 Room Air 12/01/22 10:42 12/01/22 10:22 12/01/22 10:08 12/01/22 09:52 12/01/22 09:37 12/01/22 09:16 12/01/22 08:05 Room Air
[2022-12-01] MEDS: MELATONIN 3 MG TAB PO PRN (20:01)
[2022-12-02] MEDS: HYDROCODONE/ACETAMINOPHEN 7.5/325MG TAB PO PRN (05:42)
[2022-12-02 08:00] LABS: Hemoglobin 9.3 g/dl (14.0-18.0); Mean Corpuscular Hemoglobin 27.6 pg (25.0-34.0); Mean Corpuscular Hgb Conc 33.2 g/dL (32.0-36.0); Mean Corpuscular Volume 83.1 fL (80.0-100.0); Platelet Count 25 K/uL (130-400); RDW Standard Deviation 60.5 fL (36.4-46.3); Red Blood Count 3.37 M/uL (4.70-6.10)
[2022-12-02] MEDS: DOXYCYCLINE HYCLATE 100 MG CAP PO SCH ×2 (08:26→21:17)
[2022-12-02] MEDS: CEROVITE ADV FORMULA TAB PO SCH (08:26)
[2022-12-02] MEDS: METOPROLOL TARTRATE 50 MG TAB PO SCH ×2 (08:26→21:17)
[2022-12-02] MEDS: MIDODRINE HCL 2.5 MG TAB PO SCH ×3 (08:28→16:07)
[2022-12-02] MEDS: PANTOprazole 40 MG TAB PO SCH (08:28)
[2022-12-02] MEDS: allopurinoL 300 MG TAB PO SCH (08:28)
[2022-12-02] MEDS: ATORVASTATIN 40 MG TAB PO SCH (08:28)
[2022-12-02] MEDS: MEGESTROL ACETATE 40 MG TAB PO SCH (08:33)
[2022-12-02] MEDS: CYCLOBENZAPRINE HCL 10 MG TAB PO SCH ×2 (08:39→21:20)
--- NOTE | 2022-12-02 13:07 | Hospitalist Progress Note ---
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 Patient was recently discharged with an admission 11/18 to 11/23 secondary to fall at home and right hip fracture status post right intramedullary nail placement on 10/[address] Null. Patient was at that point discharged to SNF for PT OT and rehabilitation which was necessary for completion prior to initiation of chemotherapy treatment per his oncologist. Patient has been home for 3 days [employer] and has been, increasingly challenging to care for physically due to increased weakness. Pt was receiving platelet transfusion [facility] when he became shaky and shivering (s/p solumedrol and benadryl in [facility]) and hence was sent to ED for evaluation. He is being managed for the following: Diffuse B Cell Lymphoma of head/neck: s/p 1 cycle of RCEOP (11/18/22 - 11/21/22). Chronic myelomonocytic leukemia: Chronic Thrombocytopenia: Transfusion reaction/to platelets transfusion: Recently discharged 11/23 with PICC line. Last Admission marrow biopsy consistent with CMML with multiple mutations including SRS F2 and TET 2 11/19/22 CT Neck:. The majority of the enlarged right cervical lymph nodes seen on the prior study are almost completely cystic/necrotic and have also slightly increased in size. Neoplastic/metastatic disease of the diagnosis of exclusion. Of note, these were previously biopsied. There are few new mildly enlarged right posterior cervical chain lymph nodes. Emphysema. Admitting: WBC 0.84K; Hb 6.7; Plt 10K; CXR w/ no acute findings/no pna or ptx. Continue allopurinol for tumor lysis syndrome prophylaxis Hem Onc on board, d/w hem onc 11/27 - filgrastim for 2 to 3 days, goal of Hb >7.5 and Plt >15K. Pt will require premedications prior to transfusion as OP s/p 2 units prbc and 4 unit platelets. s/p filgrastim for 3 days. Transfuse rbc or platelets as needed. Needs outpatient PET scan that has not occurred yet. WBC wnl, Plt 25K and Hb stable around 9.0. Appears improving. Increase blood lactic acid level: Lactate 5.7 at presentation with other labs as above at presentation. suspect related to thrombocytopenia and disease process. Patient with no signs and symptoms of infection 1 to 2 weeks prior to arrival per Pt. Procalcitonin at presentation was negative. Lactate downtrended. UA and CXR negative for infection at presentation. Meropenem started empirically on 11/26 was discontinued 11/27. Pt afebrile, WBC wnl now. Repeat procal on 11/28 is negative. Admitting blood culture - no growth. Pt has been afebrile. Sore throat/?bronchitis: Pt complains of sore throat 11/30 a/w cough w/ clear mucus. 11/28 Viral panel negative; 11/28 CXR w/ no acute findings. 11/28 Strep throat PCR negative. Pt afebrile. Chloraseptic spray. doxy empirically for bronchitis given immunocompromised status. symptomatic care. Pt reports improving sore throat and easing up of swallowing food now. Pressure Ulcers: Right ankle ulcer POA -unstageable and bilateral heel pressure ulcer - unstageable. WOCN on board, dressings. Goals of care; counseling/discussion: noted prior attending's/team d/w pt on 11/26. Appreciate pall care recs ---> pt can have both hospice level nursing support and chemo under his [facility] benefit; CM to assist w/ dc planning. Severe protein calorie malnutrition: Significant weight loss > 30 pounds since 08/17. Continue Megace; per this was never started post discharge. Appetite has been ok lately. Frequent falls:Recent R hip fx s/p IM nail by Dr. Null 10/27/22. Pt/ot; Fall precaution. f/u ortho on dc as scheduled prior. PAD: c/w statin. ABIs done on 03/17 showed R 0.87 and L 0.85 at rest concerning for occlusive disease to b/l SFA and tibial artery along with L iliac disease. Arterial Doppler:Moderate atherosclerotic plaque within the bilateral lower extremities. Suspected occlusion of the distal left posterior tibial artery, otherwise patent vessels. Monophasic flow within the bilateral calf vessels. H/o Dysphagia Video swallow:few episodes of trace silent aspiration with the thin liquid barium only. Aspiration precautions Appreciate speech therapy recommendations Continue moist~cut easy to chew diet with thin liquids No need for further speech therapy at this point. SSS S/P PPM -Orthostatic hypotension; SBP mid 90s in ED. MAP greater than 60 -Valvular heart disease -H/O PSVT -continue diltiazem, metoprolol; reevaluate with hold parameters pending continued hypotension -Last admission cardiology started midodrine; per this was not continued post discharge COPD: c/w home inhalers. no signs of exacerbation. Disposition: PCP: Dr. Bradshaw Code Status: DNR/DNI VTE Prophylaxis: scds. Dispo: PT/OT eval; cm to assist, awaiting placement. Admission and Anticipated Discharge Date Admission Date: November 26, 2022 Subjective Patient seen and examined at bedside as a follow-up of history of diffuse B-cell lymphoma of head and neck and chronic myelomonocytic leukemia who was admitted due to reaction to platelets transfusion at [facility]. Patient was lying in bed, is alert and reports feeling better, reports his sore throat is improving and swallowing has eased up better now. Reports some bloating and indigestion today, will use maalox. Patient reports having good appetite and is moving bowels okay. Patient denies any headache or fever or chills or chest pain, or pain or burning with passing urine. Pt's at bedside, update about plan of care, answered all her questions. Physical Exam Physical Exam: GENERAL: alert and awake, NAD, on RA. Thin/frail/weak appearing. HEENT: No pallor, no icterus. Pupils equal, round and reactive to light. Oral mucosa moist. erythematous oropharynx. NECK: No JVD, no neck masses. HEART: S1 and S2 heard. Regular rate and rhythm. No murmur, no gallop. RESPIRATORY SYSTEM: Normal AP diameter. No accessory muscle use. No wheezing, no crackles. ABDOMEN: Soft, bowel sounds present, nontender, no distention. CENTRAL NERVOUS SYSTEM: No facial droop. Speech is clear. Obeys simple commands. Moves extremities. EXTREMITIES: No edema, no erythema seen. Results & Data Results & Data ([facility]) Vital Signs (Past 12 Hours) Vital Signs Temp Pulse Pulse Resp BP Pulse Ox O2 Del Method 12/02/22 11:06 36.6 C 103 H 20 109/68 99 Room Air 12/02/22 09:42 107 H 12/02/22 07:52 36.8 C 113 H 17 119/73 95 Room Air 12/02/22 02:17 36.8 C 110 H 19 144/75 H 95 Room Air
--- NOTE | 2022-12-02 15:17 | Palliative Care Progress Note ---
Date of Service December 02, 2022 Assessment & Plan (1) Palliative care by specialist: Plan Patient has a disposition plan for SNF placement, rehab then hopefully home. ACP discussion was held and documented in prior notes. No acute IP pall med needs at this time, so Palliative med will sign off and remain available for re-engagement if needed. Joanna Cordova DNP Clinical Director, Palliative Medicine Admission and Anticipated Discharge Date Admission Date: November 26, 2022 Subjective pt and have elected a SNF dc for rehab, is uncomfortable with managing the complexity of patient's medical needs. Review of Systems Review of Systems: All systems reviewed & are unremarkable except as noted in Subjective Results & Data ([facility]) Vital Signs (Past 12 Hours) Vital Signs Temp Pulse Pulse Resp BP Pulse Ox O2 Del Method 12/02/22 11:06 36.6 C 103 H 20 109/68 99 Room Air 12/02/22 09:42 107 H 12/02/22 07:52 36.8 C 113 H 17 119/73 95 Room Air PG Care Time/CCT Total # of Minutes Spent Total Time Spent: 20 Total Time Spent with Patient: Total time spent is greater than 50% in coordination of care (as documented) at patient's floor/unit and/or counseling patient: [place] [address] SUB INP/OBS CARE 1/25MIN Patient Type Established History Problem Focused Medical Decision Making Straight Forward Diagnoses Palliative care by specialist Z51.5
[2022-12-02] MEDS: oxyCODONE HCL IR 5 MG TAB (IMMEDIATE RELEASE) PO PRN ×2 (16:07→22:21)
[2022-12-02] MEDS ORDERED: SIMETHICONE 80 MG CHEW PO PRN (17:02)
[2022-12-02] MEDS: MELATONIN 3 MG TAB PO PRN (21:17)
[2022-12-03] MEDS ORDERED: POTASSIUM CHLORIDE PWD 20 MEQ PACK PO STA (06:16)
[2022-12-03] MEDS ORDERED: LACTATED RINGER'S 1,000 ML IV ONE (06:16)
[2022-12-03] MEDS ORDERED: oxyCODONE HCL IR 5 MG TAB (IMMEDIATE RELEASE) PO STA (06:17)
[2022-12-03] MEDS ORDERED: OPTIRAY 350 100ml IV ONE (06:39)
[2022-12-03] MEDS: MAGNESIUM SULFATE / D5W 1 GM/100 ML BAG IV SCH ×2 (06:39→08:20)
--- NOTE | 2022-12-03 06:42 | Communication Note ---
Date of Service: December 03, 2022 Patient with new left-sided central abdominal pain as per RN. Last BM was yesterday. CT abdomen pelvis N.p.o. for now until CT results known.
[2022-12-03 07:23] LABS: Hematocrit (blood only) 28.6 % (42.0-52.0); Hemoglobin 9.5 g/dl (14.0-18.0); Mean Corpuscular Hemoglobin 27.2 pg (25.0-34.0); Mean Corpuscular Hgb Conc 33.2 g/dL (32.0-36.0); Mean Corpuscular Volume 81.9 fL (80.0-100.0); Nucleated RBC # (auto) 0.02 K/uL (0-0.12); Nucleated RBC % (auto) 0.2 %; Platelet Count 49 K/uL (130-400); Platelet Estimate Decreased (Normal); RDW Coefficient of Variation 20.3 % (11.5-14.5); RDW Standard Deviation 60.1 fL (36.4-46.3); Red Blood Count 3.49 M/uL (4.70-6.10); White Blood Count 12.92 K/ul (4.8-10.8)
[2022-12-03 08:05] LABS: Albumin Globulin Ratio 1.3 (0.9-2); Albumin Level 3.2 gm/dl (3.4-5.0); Calcium 8.4 mg/dl (8.5-10.1); Creatinine Clr Calc Pharmacy 77.8 ml/min; Est GFR (African American) 106.7 ml/min; Globulin 2.4 gm/dl (2.5-4.0); Magnesium 1.6 mg/dl (1.7-2.4); Potassium 3.5 mmol/L (3.5-5.1); Total Protein 5.6 gm/dl (6.0-8.3)
[2022-12-03] MEDS: allopurinoL 300 MG TAB PO SCH (08:18)
[2022-12-03] MEDS: CEROVITE ADV FORMULA TAB PO SCH (08:18)
[2022-12-03] MEDS: MEGESTROL ACETATE 40 MG TAB PO SCH (08:18)
[2022-12-03] MEDS: PANTOprazole 40 MG TAB PO SCH (08:18)
[2022-12-03] MEDS: ATORVASTATIN 40 MG TAB PO SCH (08:18)
[2022-12-03] MEDS: DOXYCYCLINE HYCLATE 100 MG CAP PO SCH ×2 (08:18→22:00)
[2022-12-03] MEDS: METOPROLOL TARTRATE 50 MG TAB PO SCH ×2 (08:18→21:17)
[2022-12-03] MEDS: MIDODRINE HCL 2.5 MG TAB PO SCH ×3 (08:18→17:23)
[2022-12-03] MEDS: CYCLOBENZAPRINE HCL 10 MG TAB PO SCH ×2 (08:21→21:14)
--- NOTE | 2022-12-03 08:46 | CT Scan Report ---
CT abd pelvis IV con only CLINICAL HISTORY: abd pain TECHNIQUE: Helical axial images of the abdomen and pelvis were obtained and displayed. Automated dose lowering techniques and/or adjustment according to patient size were utilized for this exam. This e xam was performed with intravenous contrast. CT DOSE: 300.30 mGy.cm COMPARISON: Comparison is made to CT abdomen pelvis 10/17/2022 FINDINGS: Lower chest: Right lower lung consolidation is noted. Liver: Unremarkable. No focal lesions are seen. Gallbladder and biliary tree: No calcified gallstones. Normal caliber wall. No intra- or extrahepatic biliary ductal dilation. Pancreas: Unremarkable, no focal lesions. Spleen: Splenule is incidentally noted. Adrenals: Unremarkable. Kidneys and ureters: Right renal cyst is seen. Bladder: Unremarkable. Reproductive organs: Unremarkable. Bowel: The appendix is normal. Lymph nodes Retroperitoneal: Subcentimeter lymph nodes are noted. Pelvic: Unremarkable. Mesenteric: Unremarkable. Peritoneum: Trace peritoneal stranding in the right paracolic gutter, nonspecific. Vessels: Atherosclerotic calcifications are seen. 31 mm infrarenal aortic aneurysm is seen. Redemonst ration of high-grade stenosis of the left common iliac artery. Abdominal wall: Unremarkable. Bones: Bilateral femoral fixation hardware is seen. Degenerative changes are seen in the spine. There are subacute fractures of the right 10th and 11th ribs. IMPRESSION: 1. No acute abnormalities and in particular the appendix is normal. 2. Redemonstration of subacute rib fractures. ACT 112: Negative or not required by law. Electronically signed by: Kvng Delatorre M.D. 12/03/2022 8:45 AM
[2022-12-03] MEDS ORDERED: cefTRIAXone SODIUM 2,000 MG in DEXTROSE 5% 50 ML IV SCH (12:30)
[2022-12-03 13:10] LABS: Calcium 8.4 mg/dl (8.5-10.1); Creatinine Clr Calc Pharmacy 69.2 ml/min; Est GFR (African American) 101.7 ml/min; Est GFR (Non-African American) 87.7 ml/min
[2022-12-03] MEDS: FIRST - Mouthwash BLM 119 ML PO SCH ×3 (13:16→21:19)
[2022-12-03] MEDS: ADVANCED PROBIOTIC 1250 MG CAPSULE PO SCH (14:10)
--- NOTE | 2022-12-03 14:59 | Hospitalist Progress Note ---
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 Patient was recently discharged with an admission 11/18 to 11/23 secondary to fall at home and right hip fracture status post right intramedullary nail placement on 10/[address] Null. Patient was at that point discharged to SNF for PT OT and rehabilitation which was necessary for completion prior to initiation of chemotherapy treatment per his oncologist. Patient has been home for 3 days [employer] and has been, increasingly challenging to care for physically due to increased weakness. Pt was receiving platelet transfusion [facility] when he became shaky and shivering (s/p solumedrol and benadryl in [facility]) and hence was sent to ED for evaluation. He is being managed for the following: Diffuse B Cell Lymphoma of head/neck: s/p 1 cycle of RCEOP (11/18/22 - 11/21/22). Chronic myelomonocytic leukemia: Chronic Thrombocytopenia: Transfusion reaction/to platelets transfusion: Recently discharged 11/23 with PICC line. Last Admission marrow biopsy consistent with CMML with multiple mutations including SRS F2 and TET 2 11/19/22 CT Neck:. The majority of the enlarged right cervical lymph nodes seen on the prior study are almost completely cystic/necrotic and have also slightly increased in size. Neoplastic/metastatic disease of the diagnosis of exclusion. Of note, these were previously biopsied. There are few new mildly enlarged right posterior cervical chain lymph nodes. Emphysema. Admitting: WBC 0.84K; Hb 6.7; Plt 10K; CXR w/ no acute findings/no pna or ptx. Continue allopurinol for tumor lysis syndrome prophylaxis Hem Onc on board, d/w hem onc 11/27 - filgrastim for 2 to 3 days, goal of Hb >7.5 and Plt >15K. Pt will require premedications prior to transfusion as OP s/p 2 units prbc and 4 unit platelets. s/p filgrastim for 3 days. Transfuse rbc or platelets as needed. Needs outpatient PET scan that has not occurred yet. Cell lines appear improved and stable. Increase blood lactic acid level: Lactate 5.7 at presentation with other labs as above at presentation. suspect related to thrombocytopenia and disease process. Patient with no signs and symptoms of infection 1 to 2 weeks prior to arrival per Pt. Procalcitonin at presentation was negative. Lactate downtrended. UA and CXR negative for infection at presentation. Meropenem started empirically on 11/26 was discontinued 11/27. Pt afebrile, WBC wnl now. Repeat procal on 11/28 is negative. Admitting blood culture - no growth. Pt has been afebrile. Leucocytosis: noted 12/03, procal 12/03 0.80, pt complains of burning while passing urine. 12/03 CTAP - neg for acute findings, f/u 12/01 urine analysis and blood culture. c/w rocephin 12/03 Sore throat/?bronchitis: Pt complains of sore throat 11/30 a/w cough w/ clear mucus. 11/28 Viral panel negative; 11/28 CXR w/ no acute findings. 11/28 Strep throat PCR negative. Pt afebrile. Chloraseptic spray. doxy empirically for bronchitis given immunocompromised status. symptomatic care. Pt reports improving sore throat and easing up of swallowing food now. Pressure Ulcers: Right ankle ulcer POA -unstageable and bilateral heel pressure ulcer - unstageable. WOCN on board, dressings. Goals of care; counseling/discussion: noted prior attending's/team d/w pt on 11/26. Appreciate pall care recs ---> pt can have both hospice level nursing support and chemo under his [facility] benefit; CM to assist w/ dc planning. Severe protein calorie malnutrition: Significant weight loss > 30 pounds since 08/17. Continue Megace; per this was never started post discharge. Appetite has been ok lately. Frequent falls:Recent R hip fx s/p IM nail by Dr. Null 10/27/22. Pt/ot; Fall precaution. f/u ortho on dc as scheduled prior. PAD: c/w statin. ABIs done on 03/17 showed R 0.87 and L 0.85 at rest concerning for occlusive disease to b/l SFA and tibial artery along with L iliac disease. Arterial Doppler:Moderate atherosclerotic plaque within the bilateral lower extremities. Suspected occlusion of the distal left posterior tibial artery, otherwise patent vessels. Monophasic flow within the bilateral calf vessels. H/o Dysphagia Video swallow:few episodes of trace silent aspiration with the thin liquid barium only. Aspiration precautions Appreciate speech therapy recommendations Continue moist~cut easy to chew diet with thin liquids No need for further speech therapy at this point. SSS S/P PPM -Orthostatic hypotension; SBP mid 90s in ED. MAP greater than 60 -Valvular heart disease -H/O PSVT -continue diltiazem, metoprolol; reevaluate with hold parameters pending continued hypotension -Last admission cardiology started midodrine; per this was not continued post discharge COPD: c/w home inhalers. no signs of exacerbation. Disposition: PCP: Dr. Bradshaw Code Status: DNR/DNI VTE Prophylaxis: scds. Dispo: PT/OT eval; cm to assist. Admission and Anticipated Discharge Date Admission Date: November 26, 2022 Subjective Patient seen and examined at bedside as a follow-up of history of diffuse B-cell lymphoma of head and neck and chronic myelomonocytic leukemia who was admitted due to reaction to platelets transfusion at [facility]. Patient was lying in bed, is alert and reports feeling better, reports his sore throat is improving and swallowing has eased up better now. Reports lower belly pain today, has some burnig w/ passing urine, CTAP done overnight was neg for any acute findings. Patient reports having good appetite and is moving bowels okay. Patient denies any headache or fever or chills or chest pain, or pain or burning with passing urine. Physical Exam Physical Exam: GENERAL: alert and awake, NAD, on RA. Thin/frail/weak appearing. HEENT: No pallor, no icterus. Pupils equal, round and reactive to light. Oral mucosa moist. erythematous oropharynx. NECK: No JVD, no neck masses. HEART: S1 and S2 heard. Regular rate and rhythm. No murmur, no gallop. RESPIRATORY SYSTEM: Normal AP diameter. No accessory muscle use. No wheezing, no crackles. ABDOMEN: Soft, bowel sounds present, nontender, no distention. CENTRAL NERVOUS SYSTEM: No facial droop. Speech is clear. Obeys simple commands. Moves extremities. EXTREMITIES: No edema, no erythema seen. Results & Data Results & Data ([facility]) Vital Signs (Past 12 Hours) Vital Signs Temp Pulse Pulse Resp BP Pulse Ox O2 Del Method 12/03/22 14:48 96 H 12/03/22 08:00 Room Air 12/03/22 10:47 36.9 C 106 H 17 107/57 L 92 Room Air 12/03/22 06:20 163 H 12/03/22 07:24 36.9 C 120 H 22 126/54 L 91 Room Air
[2022-12-03] MEDS: oxyCODONE HCL IR 5 MG TAB (IMMEDIATE RELEASE) PO PRN ×2 (17:22→21:14)
[2022-12-03 18:50] LABS: Appearance Urine Clear (Clear); Bacteria Urine Automated Negative (Negative); Bilirubin Urine Negative (Negative); Blood Urine Negative (Negative); Color Urine Dark Yellow; Epithelial Cell Urine Auto >30 /lpf (0-5); Glucose Urine UA Negative (Negative); Ketones Urine Negative (Negative); Leukocyte Esterase Urine Negative (Negative); Nitrite Urine Negative (Negative); Protein Urine 1+ (Negative); RBC Urine Automated 0-4 /hpf (0-4); Specific Gravity Urine 1.036 (1.000-1.030); Urobilinogen Urine Negative (Negative); pH Urine 6.5 (4.5-7.5)
[2022-12-03] MEDS: MELATONIN 3 MG TAB PO PRN ×2 (21:15→21:20)
[2022-12-04] MEDS: FIRST - Mouthwash BLM 119 ML PO SCH ×4 (06:00→20:22)
[2022-12-04] MEDS: oxyCODONE HCL IR 5 MG TAB (IMMEDIATE RELEASE) PO PRN ×2 (06:00→17:27)
[2022-12-04] MEDS: ACETAMINOPHEN 325 MG TAB PO PRN (06:00)
[2022-12-04 07:23] LABS: Hematocrit (blood only) 27.6 % (42.0-52.0); Mean Corpuscular Hemoglobin 27.1 pg (25.0-34.0); Mean Corpuscular Hgb Conc 32.6 g/dL (32.0-36.0); Mean Corpuscular Volume 83.1 fL (80.0-100.0); Platelet Count 84 K/uL (130-400); RDW Coefficient of Variation 21.1 % (11.5-14.5); Red Blood Count 3.32 M/uL (4.70-6.10); White Blood Count 16.24 K/ul (4.8-10.8)
[2022-12-04 07:25] LABS: Calcium 8.4 mg/dl (8.5-10.1); Est GFR (African American) 102.2 ml/min; Est GFR (Non-African American) 88.2 ml/min; Phosphorus 4.1 mg/dl (2.5-4.9); Potassium 3.6 mmol/L (3.5-5.1)
[2022-12-04] MEDS: DOXYCYCLINE HYCLATE 100 MG CAP PO SCH ×2 (08:36→20:21)
[2022-12-04] MEDS: allopurinoL 300 MG TAB PO SCH (08:36)
[2022-12-04] MEDS: ATORVASTATIN 40 MG TAB PO SCH (08:37)
[2022-12-04] MEDS: CEROVITE ADV FORMULA TAB PO SCH (08:37)
[2022-12-04] MEDS: PANTOprazole 40 MG TAB PO SCH (08:37)
[2022-12-04] MEDS: MEGESTROL ACETATE 40 MG TAB PO SCH (08:37)
[2022-12-04] MEDS: METOPROLOL TARTRATE 50 MG TAB PO SCH ×2 (08:37→20:21)
[2022-12-04] MEDS: MIDODRINE HCL 2.5 MG TAB PO SCH ×3 (08:37→17:25)
[2022-12-04] MEDS: ADVANCED PROBIOTIC 1250 MG CAPSULE PO SCH (08:45)
[2022-12-04] MEDS: CYCLOBENZAPRINE HCL 10 MG TAB PO SCH ×2 (08:45→20:22)
[2022-12-04] MEDS: HYDROCODONE/ACETAMINOPHEN 7.5/325MG TAB PO PRN ×2 (09:09→20:21)
[2022-12-04] MEDS: AMOXICILLIN/CLAVULANATE 875 MG TAB PO SCH ×2 (09:26→17:28)
[2022-12-04] MEDS: METOPROLOL TARTRATE 25 MG TAB PO SCH (09:26)
--- NOTE | 2022-12-04 14:34 | Hospitalist Progress Note ---
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 Patient was recently discharged with an admission 11/18 to 11/23 secondary to fall at home and right hip fracture status post right intramedullary nail placement on 10/[address] Null. Patient was at that point discharged to SNF for PT OT and rehabilitation which was necessary for completion prior to initiation of chemotherapy treatment per his oncologist. Patient has been home for 3 days [employer] [employer] and has been, increasingly challenging to care for physically due to increased weakness. Pt was receiving platelet transfusion in the [facility] when he became shaky and shivering (s/p solumedrol and benadryl in [facility]) and hence was sent to ED for evaluation. He is being managed for the following: Diffuse B Cell Lymphoma of head/neck: s/p 1 cycle of RCEOP (11/18/22 - 11/21/22). Chronic myelomonocytic leukemia: Chronic Thrombocytopenia: Transfusion reaction/to platelets transfusion: Recently discharged 11/23 with PICC line. Last Admission marrow biopsy consistent with CMML with multiple mutations including SRS F2 and TET 2 11/19/22 CT Neck:. The majority of the enlarged right cervical lymph nodes seen on the prior study are almost completely cystic/necrotic and have also slightly increased in size. Neoplastic/metastatic disease of the diagnosis of exclusion. Of note, these were previously biopsied. There are few new mildly enlarged right posterior cervical chain lymph nodes. Emphysema. Admitting: WBC 0.84K; Hb 6.7; Plt 10K; CXR w/ no acute findings/no pna or ptx. Continue allopurinol for tumor lysis syndrome prophylaxis Hem Onc on board, d/w hem onc 11/27 - filgrastim for 2 to 3 days, goal of Hb >7.5 and Plt >15K. Pt will require premedications prior to transfusion as OP s/p 2 units prbc and 4 unit platelets. s/p filgrastim for 3 days. Transfuse rbc or platelets as needed. Needs outpatient PET scan that has not occurred yet. WBC trending up towards his lymphoma level. Pt remains afebrile. Increase blood lactic acid level: Lactate 5.7 at presentation with other labs as above at presentation. suspect related to thrombocytopenia and disease process. Patient with no signs and symptoms of infection 1 to 2 weeks prior to arrival per Pt. Procalcitonin at presentation was negative. Lactate downtrended. UA and CXR negative for infection at presentation. Meropenem started empirically on 11/26 was discontinued 11/27. Pt afebrile, WBC wnl now. Repeat procal on 11/28 is negative. Admitting blood culture - no growth. Pt has been afebrile. Leucocytosis: noted 12/03, may be trending up towards his previous lymphoma level. Pt did complain burning while passing urine on 12/03. Also pt has h/o aspiration. 12/03 blood culture -NG48 hrs. Will change rocephin 12/03 to Augmentin --- total 5-7 days. Sore throat/?bronchitis: Pt complains of sore throat 11/30 a/w cough w/ clear mucus. 11/28 Viral panel negative; 11/28 CXR w/ no acute findings. 11/28 Strep throat PCR negative. Pt afebrile. Chloraseptic spray. doxy empirically for bronchitis given immunocompromised status. symptomatic care. Pt reports improving sore throat and easing up of swallowing food now. Pressure Ulcers: Right ankle ulcer POA -unstageable and bilateral heel pressure ulcer - unstageable. WOCN on board, dressings. Goals of care; counseling/discussion: noted prior attending's/team d/w pt on 11/26. Appreciate pall care recs ---> pt can have both hospice level nursing support and chemo under his [facility] benefit; CM to assist w/ dc planning. Severe protein calorie malnutrition: Significant weight loss > 30 pounds since 08/17. Continue Megace; per this was never started post discharge. Appetite has been ok lately. Frequent falls:Recent R hip fx s/p IM nail by Dr. Null 10/27/22. Pt/ot; Fall precaution. f/u ortho on dc as scheduled prior. PAD: c/w statin. ABIs done on 03/17 showed R 0.87 and L 0.85 at rest concerning for occlusive disease to b/l SFA and tibial artery along with L iliac disease. Arterial Doppler:Moderate atherosclerotic plaque within the bilateral lower extremities. Suspected occlusion of the distal left posterior tibial artery, otherwise patent vessels. Monophasic flow within the bilateral calf vessels. H/o Dysphagia Video swallow:few episodes of trace silent aspiration with the thin liquid barium only. Aspiration precautions Appreciate speech therapy recommendations Continue moist~cut easy to chew diet with thin liquids No need for further speech therapy at this point. SSS S/P PPM -Orthostatic hypotension; SBP mid 90s in ED. MAP greater than 60 -Valvular heart disease -H/O PSVT -continue diltiazem, metoprolol; reevaluate with hold parameters pending continued hypotension -Last admission cardiology started midodrine; per this was not continued post discharge COPD: c/w home inhalers. no signs of exacerbation. Disposition: PCP: Dr. Bradshaw Code Status: DNR/DNI VTE Prophylaxis: scds. Dispo: PT/OT eval; cm to assist. awaiting placement. Admission and Anticipated Discharge Date Admission Date: November 26, 2022 Subjective Patient seen and examined at bedside as a follow-up of history of diffuse B-cell lymphoma of head and neck and chronic myelomonocytic leukemia who was admitted due to reaction to platelets transfusion at [facility]. Patient was lying in bed, is alert and is feeling better, reports his sore throat is better. Reports no burning while passing urine today. Reports being weak to move around. Patient reports having good appetite and is moving bowels okay. Patient denies any headache or fever or chills or chest pain. Pt's at bedside, updated. She is concerned whether she would be able to take him home/care for him. Physical Exam Physical Exam: GENERAL: alert and awake, NAD, on RA. Thin/frail/weak appearing. HEENT: No pallor, no icterus. Pupils equal, round and reactive to light. Oral mucosa moist. erythematous oropharynx - improved. NECK: No JVD, no neck masses. HEART: S1 and S2 heard. Regular rate and rhythm. No murmur, no gallop. RESPIRATORY SYSTEM: Normal AP diameter. No accessory muscle use. No wheezing, no crackles. ABDOMEN: Soft, bowel sounds present, nontender, no distention. CENTRAL NERVOUS SYSTEM: No facial droop. Speech is clear. Obeys simple commands. Moves extremities. EXTREMITIES: No edema, no erythema seen. Results & Data Results & Data ([facility]) Vital Signs (Past 12 Hours) Vital Signs Temp Pulse Pulse Pulse Resp BP Pulse Ox 12/04/22 11:39 36.9 C 100 H 16 105/68 92 12/04/22 08:00 12/04/22 07:38 36.7 C 110 H 22 110/73 92 12/04/22 06:00 130 H 12/04/22 04:01 36.9 C 112 H 20 120/70 92 12/04/22 02:32 36.9 C 110 H 18 114/67 90 O2 Del Method O2 Flow Rate 12/04/22 11:39 Room Air 12/04/22 08:00 Room Air 12/04/22 07:38 Room Air 12/04/22 06:00 12/04/22 04:01 Nasal Cannula 2 12/04/22 02:32 Room Air
[2022-12-04] MEDS ORDERED: SODIUM CHLORIDE 0.9% 1000ML 1,000 ML IV SCH (16:45)
[2022-12-04] MEDS ORDERED: METOPROLOL TARTRATE 50 MG TAB PO STA (17:12)
[2022-12-04] MEDS ORDERED: Heparin IV Adult Wt-Based Low-Dose *NO* Bolus Protocol IV SCH (17:28)
[2022-12-04] MEDS: METOPROLOL TARTRATE 1 MG/ML VIAL IV PRN ×3 (17:31→18:02)
[2022-12-04] MEDS ORDERED: HEPARIN SODIUM/DEXTROSE 25,000 UNITS/500 ML BAG IV SCH (18:15)
[2022-12-04 18:40] LABS: Partial Thromboplastin Ratio 1.1; Partial Thromboplastin Time 29.9 Seconds (21.0-31.0)
[2022-12-04] MEDS: MELATONIN 3 MG TAB PO PRN (20:22)
[2022-12-05] MEDS: oxyCODONE HCL IR 5 MG TAB (IMMEDIATE RELEASE) PO PRN ×3 (00:21→19:52)
[2022-12-05 01:21] LABS: Partial Thromboplastin Ratio 1.2
[2022-12-05] MEDS ORDERED: HEPARIN IV BOLUS 2,000 UNITS in SYRINGE 0 ML IV ONE (01:45)
[2022-12-05] MEDS ORDERED: METOPROLOL TARTRATE 1 MG/ML VIAL IV STA (01:47)
[2022-12-05] MEDS ORDERED: POTASSIUM CHLORIDE PWD 20 MEQ PACK PO STA (01:48)
[2022-12-05] MEDS ORDERED: dilTIAZem HCl 5 MG/ML 5 ML VIAL IV STA (04:38)
[2022-12-05] MEDS ORDERED: SODIUM CHLORIDE 0.9% 1000ML 1,000 ML IV ONE (04:39)
[2022-12-05] MEDS: METOPROLOL TARTRATE 50 MG TAB PO SCH ×2 (05:00→20:40)
[2022-12-05] MEDS: FIRST - Mouthwash BLM 119 ML PO SCH ×3 (05:04→18:33)
[2022-12-05 08:29] LABS: Calcium 7.8 mg/dl (8.5-10.1); Creatinine Clr Calc Pharmacy 66.9 ml/min; Est GFR (African American) 98.8 ml/min; Est GFR (Non-African American) 85.2 ml/min; Phosphorus 3.9 mg/dl (2.5-4.9); Potassium 4.1 mmol/L (3.5-5.1)
[2022-12-05 08:40] LABS: Partial Thromboplastin Ratio 1.3; Partial Thromboplastin Time 37.1 Seconds (21.0-31.0)
[2022-12-05] MEDS: AMOXICILLIN/CLAVULANATE 875 MG TAB PO SCH ×2 (08:44→16:15)
[2022-12-05] MEDS: allopurinoL 300 MG TAB PO SCH (08:44)
[2022-12-05] MEDS: PANTOprazole 40 MG TAB PO SCH (08:44)
[2022-12-05] MEDS: MIDODRINE HCL 2.5 MG TAB PO SCH ×3 (08:44→16:13)
[2022-12-05] MEDS: ADVANCED PROBIOTIC 1250 MG CAPSULE PO SCH (08:44)
[2022-12-05] MEDS: MEGESTROL ACETATE 40 MG TAB PO SCH (08:44)
[2022-12-05] MEDS: CEROVITE ADV FORMULA TAB PO SCH (08:44)
[2022-12-05] MEDS: ATORVASTATIN 40 MG TAB PO SCH (08:45)
[2022-12-05] MEDS: DOXYCYCLINE HYCLATE 100 MG CAP PO SCH (08:45)
[2022-12-05] MEDS: METOPROLOL TARTRATE 25 MG TAB PO SCH (08:46)
[2022-12-05] MEDS: CYCLOBENZAPRINE HCL 10 MG TAB PO SCH ×2 (08:51→20:53)
[2022-12-05 08:53] LABS: Hematocrit (blood only) 27.3 % (42.0-52.0); Hemoglobin 8.6 g/dl (14.0-18.0); Mean Corpuscular Hemoglobin 26.4 pg (25.0-34.0); Mean Corpuscular Hgb Conc 31.5 g/dL (32.0-36.0); Mean Corpuscular Volume 83.7 fL (80.0-100.0); Nucleated RBC # (auto) 0.03 K/uL (0-0.12); Nucleated RBC % (auto) 0.2 %; Platelet Count 122 K/uL (130-400); RDW Coefficient of Variation 21.1 % (11.5-14.5); RDW Standard Deviation 63.8 fL (36.4-46.3); Red Blood Count 3.26 M/uL (4.70-6.10); White Blood Count 16.79 K/ul (4.8-10.8)
[2022-12-05] MEDS ORDERED: AMIODARONE 200 MG TAB PO ONE (10:34)
--- NOTE | 2022-12-05 10:35 | Electrocardiogram Report ---
Test Reason : Blood Pressure : / mmHG Vent. Rate : 136 BPM Atrial Rate : 131 BPM P-R Int : 000 ms QRS Dur : 084 ms QT Int : 322 ms P-R-T Axes : 000 -09 -04 degrees QTc Int : 484 ms Atrial fibrillation with rapid ventricular response Cannot rule out Inferior infarct , age undetermined Abnormal ECG When compared with ECG of 26-NOV-2022 16:17, Atrial fibrillation has replaced Sinus rhythm Vent. rate has increased BY 49 BPM Confirmed by Lio Olivarez ([id number]) on 12/05/2022 10:34:48 AM Referred By: REFERRED SELF Confirmed By:Lio Olivarez
[2022-12-05] MEDS ORDERED: HEPARIN SOD (PORCINE) 1000 UNIT/ML IV ONE (10:37)
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
--- NOTE | 2022-12-05 10:56 | Electrocardiogram Report ---
Test Reason : Blood Pressure : / mmHG Vent. Rate : 099 BPM Atrial Rate : 099 BPM P-R Int : 150 ms QRS Dur : 084 ms QT Int : 378 ms P-R-T Axes : 029 -14 -08 degrees QTc Int : 485 ms Normal sinus rhythm Nonspecific T wave abnormality Abnormal ECG When compared with ECG of 04-DEC-2022 16:57, (unconfirmed) Sinus rhythm has replaced Atrial fibrillation Confirmed by Lio Olivarez ([id number]) on 12/05/2022 10:56:31 AM Referred By: REFERRED SELF Confirmed By:Lio Olivarez
[2022-12-05] MEDS: AMIODARONE 200 MG TAB PO SCH ×2 (11:50→16:15)
[2022-12-05] MEDS ORDERED: METOPROLOL TARTRATE 1 MG/ML VIAL IV PRN (12:42)
--- NOTE | 2022-12-05 15:42 | Hospitalist Progress Note ---
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 Patient was recently discharged with an admission 11/18 to 11/23 secondary to fall at home and right hip fracture status post right intramedullary nail placement on 10/[address] Null. Patient was at that point discharged to SNF for PT OT and rehabilitation which was necessary for completion prior to initiation of chemotherapy treatment per his oncologist. Patient has been home for 3 days [employer] and has been, increasingly challenging to care for physically due to increased weakness. Pt was receiving platelet transfusion [facility] when he became shaky and shivering (s/p solumedrol and benadryl in [facility]) and hence was sent to ED for evaluation. He is being managed for the following: Diffuse B Cell Lymphoma of head/neck: s/p 1 cycle of RCEOP (11/18/22 - 11/21/22). Chronic myelomonocytic leukemia: Chronic Thrombocytopenia: Transfusion reaction/to platelets transfusion: Recently discharged 11/23 with PICC line. Last Admission marrow biopsy consistent with CMML with multiple mutations including SRS F2 and TET 2 11/19/22 CT Neck:. The majority of the enlarged right cervical lymph nodes seen on the prior study are almost completely cystic/necrotic and have also slightly increased in size. Neoplastic/metastatic disease of the diagnosis of exclusion. Of note, these were previously biopsied. There are few new mildly enlarged right posterior cervical chain lymph nodes. Emphysema. Admitting: WBC 0.84K; Hb 6.7; Plt 10K; CXR w/ no acute findings/no pna or ptx. Continue allopurinol for tumor lysis syndrome prophylaxis Hem Onc on board, d/w hem onc 11/27 - filgrastim for 2 to 3 days, goal of Hb >7.5 and Plt >15K. Pt will require premedications prior to transfusion as OP s/p 2 units prbc and 4 unit platelets. s/p filgrastim for 3 days. Transfuse rbc or platelets as needed. Needs outpatient PET scan that has not occurred yet. WBC trending up towards his lymphoma level. Pt remains afebrile. Afib RVR: Pt w/ new afib, onset 12/04 evening, TSH wnl. Currently pt in and out of afib, rate in 100s to 120s. d/w cardio, amiodarone started and heparin drip discontinued/as pt is not a candidate for chronic anticoagulation give recurrent falls and tendency to get pancytopenia from his cancer therapy. Increase blood lactic acid level: Lactate 5.7 at presentation with other labs as above at presentation. suspect related to thrombocytopenia and disease process. Patient with no signs and symptoms of infection 1 to 2 weeks prior to arrival per Pt. Procalcitonin at presentation was negative. Lactate downtrended. UA and CXR negative for infection at presentation. Meropenem started empirically on 11/26 was discontinued 11/27. Pt afebrile. Repeat procal on 11/28 is negative. Admitting blood culture - no growth. Pt has been afebrile. Leucocytosis: noted 12/03, may be trending up towards his previous lymphoma level. Pt did complain burning while passing urine on 12/03. Also pt has h/o aspiration. 12/03 blood culture -NG48 hrs. Changed rocephin 12/03 to Augmentin 12/04 --- total 5-7 days. Sore throat/?bronchitis: Pt complains of sore throat 11/30 a/w cough w/ clear mucus. 11/28 Viral panel negative; 11/28 CXR w/ no acute findings. 11/28 Strep throat PCR negative. Pt afebrile. Chloraseptic spray. s/p empiric doxy course for bronc hitis given immunocompromised status. symptomatic care. Pt reports improving sore throat and easing up of swallowing food now. Pressure Ulcers: Right ankle ulcer POA -unstageable and bilateral heel pressure ulcer - unstageable. WOCN on board, dressings. Goals of care; counseling/discussion: noted prior attending's/team d/w pt on 11/26. Appreciate pall care recs ---> pt can have both hospice level nursing support and chemo under his [facility] benefit; CM to assist w/ dc planning. Severe protein calorie malnutrition: Significant weight loss > 30 pounds since 08/17. Continue Megace; per this was never started post discharge. Appetite has been ok lately. Frequent falls:Recent R hip fx s/p IM nail by Dr. Null 10/27/22. Pt/ot; Fall precaution. f/u ortho on dc as scheduled prior. PAD: c/w statin. ABIs done on 03/17 showed R 0.87 and L 0.85 at rest concerning for occlusive disease to b/l SFA and tibial artery along with L iliac disease. Arterial Doppler:Moderate atherosclerotic plaque within the bilateral lower extremities. Suspected occlusion of the distal left posterior tibial artery, otherwise patent vessels. Monophasic flow within the bilateral calf vessels. H/o Dysphagia Video swallow:few episodes of trace silent aspiration with the thin liquid barium only. Aspiration precautions Appreciate speech therapy recommendations Continue moist~cut easy to chew diet with thin liquids No need for further speech therapy at this point. SSS S/P PPM -Orthostatic hypotension; SBP mid 90s in ED. MAP greater than 60 -Valvular heart disease -H/O PSVT -continue diltiazem, metoprolol; reevaluate with hold parameters pending continued hypotension -Last admission cardiology started midodrine; per this was not continued post discharge COPD: c/w home inhalers. no signs of exacerbation. Disposition: PCP: Dr. Bradshaw Code Status: DNR/DNI VTE Prophylaxis: scds. Dispo: PT/OT eval; cm to assist. Admission and Anticipated Discharge Date Admission Date: November 26, 2022 Subjective Patient seen and examined at bedside as a follow-up of history of diffuse B-cell lymphoma of head and neck and chronic myelomonocytic leukemia who was admitted due to reaction to platelets transfusion [facility]. Patient was lying in bed, is alert and is feeling better, reports his sore throat is better. Reports no burning while passing urine today. Reports being weak to move around. Did move bowel today - no blood or black. Patient w/ poor po intake/appetite and is moving bowels okay. Patient denies any headache or fever or chills or chest pain. Pt's at bedside, updated. She is concerned whether she would be able to take him home/care for him. Physical Exam Physical Exam: GENERAL: alert and awake, NAD, on RA. Thin/frail/weak appearing. HEENT: No pallor, no icterus. Pupils equal, round and reactive to light. Oral mucosa moist. erythematous oropharynx - improved. NECK: No JVD, no neck masses. HEART: S1 and S2 heard. irregular rate and rhythm. No murmur, no gallop. RESPIRATORY SYSTEM: Normal AP diameter. No accessory muscle use. No wheezing, no crackles. ABDOMEN: Soft, bowel sounds present, nontender, no distention. CENTRAL NERVOUS SYSTEM: No facial droop. Speech is clear. Obeys simple commands. Moves extremities. EXTREMITIES: No edema, no erythema seen. Results & Data Results & Data ([facility]) Vital Signs (Past 12 Hours) Vital Signs Temp Pulse Pulse Resp BP BP Pulse Ox 12/05/22 15:07 101 H 12/05/22 13:02 131 H 12/05/22 11:03 36.7 C 117 H 23 100/65 90 12/05/22 09:50 120 H 12/05/22 08:00 12/05/22 08:00 36.7 C 96 H 22 103/68 95 12/05/22 07:27 89 12/05/22 06:00 99 H 12/05/22 04:26 20 103/68 95 12/05/22 03:54 36.5 C 100 H 25 H 103/72 92 O2 Del Method O2 Flow Rate 12/05/22 15:07 12/05/22 13:02 12/05/22 11:03 Room Air 12/05/22 09:50 12/05/22 08:00 Room Air 12/05/22 08:00 Room Air 12/05/22 07:27 12/05/22 06:00 12/05/22 04:26 Nasal Cannula 3 12/05/22 03:54 Nasal Cannula 3
[2022-12-05] MEDS: HYDROCODONE/ACETAMINOPHEN 7.5/325MG TAB PO PRN (16:13)
[2022-12-05] MEDS: FAMOTIDINE 20 MG TAB PO SCH (20:41)
[2022-12-05] MEDS: MELATONIN 3 MG TAB PO PRN (20:53)
[2022-12-06] MEDS: FIRST - Mouthwash BLM 119 ML PO SCH ×5 (00:39→23:30)
[2022-12-06] MEDS: AMIODARONE 200 MG TAB PO SCH ×3 (07:21→17:42)
[2022-12-06 07:22] LABS: BUN Creatinine Ratio 28.8 (10-20); Creatinine Clr Calc Pharmacy 80.3 ml/min; Est GFR (African American) 106.7 ml/min; Magnesium 1.9 mg/dl (1.7-2.4); Phosphorus 3.4 mg/dl (2.5-4.9); Potassium 3.6 mmol/L (3.5-5.1)
[2022-12-06] MEDS: MIDODRINE HCL 2.5 MG TAB PO SCH ×3 (07:22→17:42)
[2022-12-06] MEDS: AMOXICILLIN/CLAVULANATE 875 MG TAB PO SCH ×2 (07:22→17:42)
[2022-12-06 07:34] LABS: Hematocrit (blood only) 26.4 % (42.0-52.0); Hemoglobin 8.4 g/dl (14.0-18.0); Mean Corpuscular Hemoglobin 26.3 pg (25.0-34.0); Mean Corpuscular Hgb Conc 31.8 g/dL (32.0-36.0); Mean Corpuscular Volume 82.8 fL (80.0-100.0); Nucleated RBC # (auto) 0.02 K/uL (0-0.12); Nucleated RBC % (auto) 0.1 %; Platelet Count 150 K/uL (130-400); RDW Coefficient of Variation 21.6 % (11.5-14.5); RDW Standard Deviation 63.9 fL (36.4-46.3); Red Blood Count 3.19 M/uL (4.70-6.10); White Blood Count 13.36 K/ul (4.8-10.8)
[2022-12-06] MEDS: ADVANCED PROBIOTIC 1250 MG CAPSULE PO SCH (08:43)
[2022-12-06] MEDS: METOPROLOL TARTRATE 50 MG TAB PO SCH ×2 (08:43→20:54)
[2022-12-06] MEDS: CEROVITE ADV FORMULA TAB PO SCH (08:43)
[2022-12-06] MEDS: PANTOprazole 40 MG TAB PO SCH (08:43)
[2022-12-06] MEDS: ATORVASTATIN 40 MG TAB PO SCH (08:44)
[2022-12-06] MEDS: allopurinoL 300 MG TAB PO SCH (08:44)
[2022-12-06] MEDS: MEGESTROL ACETATE 40 MG TAB PO SCH (08:44)
[2022-12-06] MEDS: oxyCODONE HCL IR 5 MG TAB (IMMEDIATE RELEASE) PO PRN (09:14)
[2022-12-06] MEDS: CYCLOBENZAPRINE HCL 10 MG TAB PO SCH (09:15)
--- NOTE | 2022-12-06 11:22 | Cardiology Progress Note ---
Date of Service December 06, 2022 Assessment & Plan (1) Paroxysmal atrial fibrillation with RVR: (2) Chronic ischemic heart disease: (3) Pancytopenia: Plan IMPRESSION: Complex 72-year-old patient with recent NSTEMI managed medically due to pancytopenia presented to the hospital with weakness on November 26, 2022. New onset paroxysmal atrial fibrillation noted over the past 24 hours without associated symptoms. Carries a history of supraventricular tachycardia with tachybradycardia syndrome and permanent pacemaker implantation. He is not a candidate for long-term anticoagulation due to pancytopenia. PLAN: Recommend rhythm control strategy. QTc stable on today's EKG. Continue amiodarone 200 mg 3 times daily (12/05). Continue metoprolol 50 mg twice daily for the time being with plans to reduce dose of beta-alma therapy pending blood pressure response. Not a long-term anticoagulation candidate due to pancytopenia-remain off anticoagulation. Continue to manage chronic ischemic heart disease medically with statin therapy and beta-alma. Repeat ECG 12/05 demonstrating sinus rhythm with inferior T wave inversions unchanged from admission ECG 11/26/2022. Case discussed with Dr. Cheney. Will follow. Admission and Anticipated Discharge Date Admission Date: November 26, 2022 Supervising Physician Co-Signing Physician Notes I have personally seen and examined the patient along with JUAN ANTONIO Vela. Patient more confused today. Denies chest pain or shortness of breath. The medical record and all available studies have been reviewed. Please refer to the note as detailed above for full PMH, PSH, social hx, family hx, active medication list and allergies. After discussion with JUAN ANTONIO Vela I fully agree with the assessment and plan as documented above. Continue rhythm control strategy with amiodarone. Consider reduction of metoprolol pending clinical response. Subjective Medically complex 72-year-old male who presented to [facility] on 11/26 secondary to weakness. 12/04: Developed new onset atrial fibrillation with RVR. Treated with oral metoprolol and IV diltiazem. Continuously converted to normal sinus rhythm at approximately 4:50 AM. Patient was asymptomatic with atrial fibrillation. Amiodarone 200 mg 3 times daily started. Metoprolol succinate 50 mg twice daily continued. Not a candidate for long-term anticoagulation due to pancytopenia. IV heparin discontinued. 12/05: Upon entrance into the room patient resting in bed. Increasingly confused. Easily redirected. No acute distress. Review of systems limited due to confusion. Telemetry: Normal sinus rhythm with PACs in the 90s. Episode of atrial fibrillation from 10pm-12am yesterday, 12/05. Review of Systems Review of Systems: Unobtainable due to cognitive status Physical Exam Constitutional: + thin; no acute distress Respiratory: no respiratory distress, no labored breathing and no retractions Auscultation: no crackles, no rales, no rhonchi and no wheezes Cardiovascular: Rate/Rhythm: regular rate and regular rhythm Heart Sounds: normal S1, normal S2 and + murmur (1/6 systolic ejection murmur) Vessels: radial pulses present; no JVD and no carotid bruit Extremities: no edema Gastrointestinal (Abdomen): Inspection/Auscultation: abdomen normal to inspection and normal bowel sounds; abdomen not distended Percussion/Palpation: abdomen soft; abdomen nontender, no guarding and abdomen not rigid Neurologic: CN's II-XI intact bilaterally and moves all extremities; no focal motor deficits Psychiatric: Orientation: alert and cooperative Results & Data ([facility]) Vital Signs (Past 12 Hours) Vital Signs Temp Pulse Pulse Resp BP Pulse Ox O2 Del Method 12/06/22 11:11 36.7 C 88 20 117/65 93 Room Air 12/06/22 09:43 102 H 12/06/22 07:29 36.7 C 111 H 22 152/84 H 96 Room Air 12/05/22 23:42 36.4 C L 12/06/22 03:46 36.4 C L 99 H 20 126/72 93 Room Air 12/05/22 23:27 35.8 C L 122 H 22 104/82 92 Room Air Laboratory Results CBC 12/06/22 Range/Units 06:12 WBC 13.36 H (4.8-10.8) K/ul RBC 3.19 L (4.70-6.10) M/uL Hgb 8.4 L (14.0-18.0) g/dl Hct 26.4 L (42.0-52.0) % Plt Count 150 (130-400) K/uL Comprehensive Metabolic Panel 12/06/22 Range/Units 06:12 Sodium 137 (136-145) mmol/L Potassium 3.6 (3.5-5.1) mmol/L Chloride 105 (98-107) mmol/L Carbon Dioxide 23 (21-32) mmol/L BUN 21 (6-23) mg/dl Creatinine 0.73 (0.6-1.4) mg/dl Glucose 104 H (70-99(Fasting)) mg/dl Calcium 8.0 L (8.5-10.1) mg/dl Intake and Output 12/05/22 12/06/22 12/06/22 22:59 06:59 14:59 Output Total 400 / 675 275 / 675 Balance -400 / 1066.667 -275 / 1066.667 Output: Urine 400 / 675 275 / 675 Other: Other Intake Source sips Weight 63 kg Weight Measurement Method Built in [facility]
--- NOTE | 2022-12-06 15:01 | Hospitalist Progress Note ---
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 Patient was recently discharged with an admission 11/18 to 11/23 secondary to fall at home and right hip fracture status post right intramedullary nail placement on 10/[address] Null. Patient was at that point discharged to SNF for PT OT and rehabilitation which was necessary for completion prior to initiation of chemotherapy treatment per his oncologist. Patient has been home for 3 days [employer] and has been, increasingly challenging to care for physically due to increased weakness. Pt was receiving platelet transfusion [facility] when he became shaky and shivering (s/p solumedrol and benadryl in [facility]) and hence was sent to ED for evaluation. He is being managed for the following: Diffuse B Cell Lymphoma of head/neck: s/p 1 cycle of RCEOP (11/18/22 - 11/21/22). Chronic myelomonocytic leukemia: Chronic Thrombocytopenia: Transfusion reaction/to platelets transfusion: Recently discharged 11/23 with PICC line. Last Admission marrow biopsy consistent with CMML with multiple mutations including SRS F2 and TET 2 11/19/22 CT Neck:. The majority of the enlarged right cervical lymph nodes seen on the prior study are almost completely cystic/necrotic and have also slightly increased in size. Neoplastic/metastatic disease of the diagnosis of exclusion. Of note, these were previously biopsied. There are few new mildly enlarged right posterior cervical chain lymph nodes. Emphysema. Admitting: WBC 0.84K; Hb 6.7; Plt 10K; CXR w/ no acute findings/no pna or ptx. Continue allopurinol for tumor lysis syndrome prophylaxis Hem Onc on board, d/w hem onc 11/27 - filgrastim for 2 to 3 days, goal of Hb >7.5 and Plt >15K. Pt will require premedications prior to transfusion as OP s/p 2 units prbc and 4 unit platelets. s/p filgrastim for 3 days. Transfuse rbc or platelets as needed. Needs outpatient PET scan that has not occurred yet. Pt remains afebrile. Afib RVR: Pt w/ new afib, onset 12/04 evening, TSH wnl. Currently pt in and out of afib, rate better controlled today. cardio on board - c/w metoprolol and amiodarone. Not a candidate for chronic anticoagulation give recurrent falls and tendency to get pancytopenia from his cancer therapy. Increase blood lactic acid level: Lactate 5.7 at presentation with other labs as above at presentation. suspect related to thrombocytopenia and disease process. Patient with no signs and symptoms of infection 1 to 2 weeks prior to arrival per Pt. Procalcitonin at presentation was negative. Lactate downtrended. UA and CXR negative for infection at presentation. Meropenem started empirically on 11/26 was discontinued 11/27. Pt afebrile. Repeat procal on 11/28 is negative. Admitting blood culture - no growth. Pt has been afebrile. Leucocytosis: noted 12/03, may be trending up towards his previous lymphoma level. Pt did complain burning while passing urine on 12/03. Also pt has h/o aspiration. 12/03 blood culture -NG48 hrs. Changed rocephin 12/03 to Augmentin 12/04 --- total 5-7 days. Sore throat/?bronchitis: Pt complains of sore throat 11/30 a/w cough w/ clear mucus. 11/28 Viral panel negative; 11/28 CXR w/ no acute findings. 11/28 Strep throat PCR negative. Pt afebrile. Chloraseptic spray. s/p empiric doxy course for bronchitis given immunocompromised status. symptomatic care. Pt reports improving sore throat and easing up of swallowing food now. Pressure Ulcers: Right ankle ulcer POA -unstageable and bilateral heel pressure ulcer - unstageable. WOCN on board, dressings. Goals of care; counseling/discussion: noted prior attending's/team d/w pt on 11/26. Appreciate pall care recs ---> pt can have both hospice level nursing support and chemo under his [facility] benefit; CM to assist w/ dc planning. Severe protein calorie malnutrition: Significant weight loss > 30 pounds since 08/17. Continue Megace; per this was never started post discharge. Appetite has been ok lately. Frequent falls:Recent R hip fx s/p IM nail by Dr. Null 10/27/22. Pt/ot; Fall precaution. f/u ortho on dc as scheduled prior. PAD: c/w statin. ABIs done on 03/17 showed R 0.87 and L 0.85 at rest concerning for occlusive disease to b/l SFA and tibial artery along with L iliac disease. Arterial Doppler:Moderate atherosclerotic plaque within the bilateral lower extremities. Suspected occlusion of the distal left posterior tibial artery, otherwise patent vessels. Monophasic flow within the bilateral calf vessels. H/o Dysphagia Video swallow:few episodes of trace silent aspiration with the thin liquid barium only. Aspiration precautions Appreciate speech therapy recommendations Continue moist~cut easy to chew diet with thin liquids No need for further speech therapy at this point. SSS S/P PPM -Orthostatic hypotension; SBP mid 90s in ED. MAP greater than 60 -Valvular heart disease -H/O PSVT -continue diltiazem, metoprolol; reevaluate with hold parameters pending continued hypotension -Last admission cardiology started midodrine; per this was not continued post discharge COPD: c/w home inhalers. no signs of exacerbation. Disposition: PCP: Dr. Bradshaw Code Status: DNR/DNI VTE Prophylaxis: scds. Dispo: PT/OT eval; cm to assist. Admission and Anticipated Discharge Date Admission Date: November 26, 2022 Subjective Patient seen and examined at bedside as a follow-up of history of diffuse B-cell lymphoma of head and neck and chronic myelomonocytic leukemia who was admitted due to reaction to platelets transfusion at [facility]. Patient was lying in bed, is alert and has good appetite today and moved his bowel in am. Reports no burning while passing urine today. Reports being weak to move around. Is confused on/off today. Patient denies any headache or fever or chills or chest pain. Pt had generalized pain today at exam time but had just received his pain meds. Pt's at bedside, updated. She is concerned whether she would be able to take him home/care for him. Physical Exam Physical Exam: GENERAL: alert and awake, NAD, on RA. Thin/frail/weak appearing. HEENT: No pallor, no icterus. Pupils equal, round and reactive to light. Oral mucosa moist. NECK: No JVD, no neck masses. HEART: S1 and S2 heard. irregular rate and rhythm. No murmur, no gallop. RESPIRATORY SYSTEM: Normal AP diameter. No accessory muscle use. No wheezing, no crackles. ABDOMEN: Soft, bowel sounds present, nontender, no distention. CENTRAL NERVOUS SYSTEM: No facial droop. Speech is clear. Obeys simple commands. Moves extremities. EXTREMITIES: No edema, no erythema seen. Results & Data Results & Data ([facility]) Vital Signs (Past 12 Hours) Vital Signs Temp Pulse Pulse Resp BP Pulse Ox O2 Del Method 12/06/22 11:11 36.7 C 88 20 117/65 93 Room Air 12/06/22 09:43 102 H 12/06/22 07:29 36.7 C 111 H 22 152/84 H 96 Room Air 12/06/22 03:46 36.4 C L 99 H 20 126/72 93 Room Air
[2022-12-06] MEDS ORDERED: OLANZAPINE 2.5 MG TAB PO PRN (15:31)
[2022-12-06] MEDS: SODIUM CHLORIDE 0.9% 1000ML 1,000 ML IV SCH (16:05)
[2022-12-06] MEDS: FAMOTIDINE 20 MG TAB PO SCH (20:57)
[2022-12-06] MEDS ORDERED: MELATONIN 3 MG TAB PO SCH (21:00)
[2022-12-07] MEDS: ACETAMINOPHEN 325 MG TAB PO PRN ×2 (01:34→10:45)
[2022-12-07] MEDS: FIRST - Mouthwash BLM 119 ML PO SCH ×2 (04:23→11:41)
--- NOTE | 2022-12-07 07:26 | Cardiology Progress Note ---
Date of Service December 07, 2022 Assessment & Plan (1) Paroxysmal atrial fibrillation with RVR: (2) Chronic ischemic heart disease: (3) Pancytopenia: Plan IMPRESSION: Complex 72-year-old patient with recent NSTEMI managed medically due to pancytopenia presented to the hospital with weakness on November 26, 2022. New onset paroxysmal atrial fibrillation noted without associated symptoms. Carries a history of supraventricular tachycardia with tachybradycardia syndrome and permanent pacemaker implantation. He is not a candidate for long-term anticoagulation due to pancytopenia. PLAN: -Recommend rhythm control strategy. QTc stable on today's EKG. Continue amiodarone, will reduce to 200 mg twice daily with meals at discharge. -Continue metoprolol 50 mg twice daily. -Not a long-term anticoagulation candidate due to pancytopenia-remain off anticoagulation. -Continue to manage chronic ischemic heart disease medically with statin therapy and beta-alma. -Continue to monitor and replace electrolytes. Potassium goal 4.0 and mag goal at 2.0. -Blood pressures improving, will stop midodrine at discharge. Case discussed with Dr. Cheney. Krunal for discharge from a cardiology standpoint- recommend follow up in our office in 2 weeks. Will arrange. Admission and Anticipated Discharge Date Admission Date: November 26, 2022 Supervising Physician Co-Signing Physician Notes I have personally seen and examined the patient along with JUAN ANTONIO Vela. Patient more alert today. Denies chest pain or shortness of breath. No palpitations. The medical record and all available studies have been reviewed. Please refer to the note as detailed above for full physical exam, active medication list and allergies. After discussion with JUAN ANTONIO Vela I fully agree with the assessment and plan as documented above. Continue rhythm control strategy with amiodarone 200 mg twice daily. Discontinue midodrine. Consider reduction of metoprolol pending clinical response. Subjective Medically complex 72-year-old male who presented to [facility] on 11/26 secondary to weakness. Carries a history of non-Hodgkin's B-cell lymphoma, CML, chronic thrombocytopenia, sick sinus syndrome status post permanent pacemaker, and recent NSTEMI. 12/04: Developed new onset atrial fibrillation with RVR. Treated with oral metoprolol and IV diltiazem. Continuously converted to normal sinus rhythm at approximately 4:50 AM. Patient was asymptomatic with atrial fibrillation. Amiodarone 200 mg 3 times daily started. Metoprolol succinate 50 mg twice daily continued. Not a candidate for long-term anticoagulation due to pancytopenia. IV heparin discontinued. 12/05: Telemetry: Normal sinus rhythm with PACs in the 90s. Episode of atrial fibrillation from 10pm-12am, 12/05. Amiodarone 200 mg TID with meals continued. 12/06: Upon entrance into the room patient resting comfortably in bed. at bedside. Separate from his confusion today. He denies any acute concerns including chest pain, shortness of breath, or palpitations. No lightheadedness or dizziness. No syncope. Tele: NSR 80s, ongoing brief episodes of PAF, most recent occurrence 0730am Review of Systems Review of Systems: All systems reviewed & are unremarkable except as noted in HPI & below Physical Exam Constitutional: well nourished and + thin; no acute distress Respiratory: no respiratory distress, no labored breathing and no retractions Auscultation: no crackles, no rales, no rhonchi and no wheezes Cardiovascular: Rate/Rhythm: regular rate and regular rhythm Heart Sounds: normal S1, normal S2 and + murmur (1/6 systolic ejection murmur) Vessels: radial pulses present; no JVD and no carotid bruit Extremities: no edema Gastrointestinal (Abdomen): Inspection/Auscultation: abdomen normal to inspection and normal bowel sounds; abdomen not distended Percussion/Palpation: abdomen soft; abdomen nontender, no guarding and abdomen not rigid Neurologic: moves all extremities Psychiatric: A+Ox3, euthymic affect Orientation: cooperative Results & Data ([facility]) Vital Signs (Past 12 Hours) Vital Signs Temp Pulse Pulse Resp BP Pulse Ox O2 Del Method 12/07/22 04:43 36.9 C 91 H 18 134/79 100 Room Air 12/06/22 23:26 36.8 C 88 20 130/84 100 Room Air 12/06/22 22:55 94 H 12/06/22 20:18 36.7 C 103 H 22 142/80 H 100 Room Air Laboratory Results CBC 12/07/22 Range/Units 06:20 WBC 10.41 (4.8-10.8) K/ul RBC 3.18 L (4.70-6.10) M/uL Hgb 8.3 L (14.0-18.0) g/dl Hct 26.2 L (42.0-52.0) % Plt Count 205 (130-400) K/uL Comprehensive Metabolic Panel 12/07/22 Range/Units 06:20 Sodium 138 (136-145) mmol/L Potassium 3.3 L (3.5-5.1) mmol/L Chloride 107 (98-107) mmol/L Carbon Dioxide 21 (21-32) mmol/L BUN 14 (6-23) mg/dl Creatinine 0.79 (0.6-1.4) mg/dl Glucose 93 (70-99(Fasting)) mg/dl Calcium 8.0 L (8.5-10.1) mg/dl Intake and Output 12/06/22 12/07/22 12/07/22 22:59 06:59 14:59 Intake Total 97.333 / 313.333 216 / 313.333 590.667 / 590.667 Output Total 350 / 350 Balance -252.667 / -36.667 216 / -36.667 590.667 / 590.667 Intake: IV 97.333 / 313.333 216 / 313.333 590.667 / 590.667 Sodium Chloride 0.9% 1000ML 1, 97.333 / 313.333 216 / 313.333 590.667 / 590.667 000 ml @ 80 mls/hr IV .[id number] [facility] Rx#:[id number] Output: Urine 350 / 350 Other: Other Intake Source SIPS SIPS Weight 60.7 kg Weight Measurement Method Built in [facility]
[2022-12-07 07:36] LABS: BUN Creatinine Ratio 17.7 (10-20); Creatinine Clr Calc Pharmacy 71.5 ml/min; Est GFR (African American) 103.2 ml/min; Est GFR (Non-African American) 89.1 ml/min; Magnesium 1.9 mg/dl (1.7-2.4); Potassium 3.3 mmol/L (3.5-5.1)
[2022-12-07 07:51] LABS: Hematocrit (blood only) 26.2 % (42.0-52.0); Hemoglobin 8.3 g/dl (14.0-18.0); Mean Corpuscular Hemoglobin 26.1 pg (25.0-34.0); Mean Corpuscular Hgb Conc 31.7 g/dL (32.0-36.0); Mean Corpuscular Volume 82.4 fL (80.0-100.0); Platelet Count 205 K/uL (130-400); RDW Coefficient of Variation 21.9 % (11.5-14.5); RDW Standard Deviation 63.7 fL (36.4-46.3); Red Blood Count 3.18 M/uL (4.70-6.10); White Blood Count 10.41 K/ul (4.8-10.8)
[2022-12-07] MEDS: AMOXICILLIN/CLAVULANATE 875 MG TAB PO SCH (08:10)
[2022-12-07] MEDS: ADVANCED PROBIOTIC 1250 MG CAPSULE PO SCH (08:10)
[2022-12-07] MEDS: SODIUM CHLORIDE 0.9% 1000ML 1,000 ML IV SCH (08:10)
[2022-12-07] MEDS: AMIODARONE 200 MG TAB PO SCH ×2 (08:10→11:41)
[2022-12-07] MEDS: ATORVASTATIN 40 MG TAB PO SCH (08:11)
[2022-12-07] MEDS: MEGESTROL ACETATE 40 MG TAB PO SCH (08:11)
[2022-12-07] MEDS: allopurinoL 300 MG TAB PO SCH (08:11)
[2022-12-07] MEDS: PANTOprazole 40 MG TAB PO SCH (08:11)
[2022-12-07] MEDS: CEROVITE ADV FORMULA TAB PO SCH (08:11)
[2022-12-07] MEDS: MIDODRINE HCL 2.5 MG TAB PO SCH (08:11)
[2022-12-07] MEDS: METOPROLOL TARTRATE 50 MG TAB PO SCH (08:11)
[2022-12-07] MEDS ORDERED: POTASSIUM CHLORIDE CRTAB 20 MEQ TABCR PO STA (08:20)
--- NOTE | 2022-12-07 13:53 | Discharge Summary ---
Date of Service December 07, 2022 Admission HPI Per Admitting Provider Mr. Greenberg is a pleasant 72-year-old gentleman with chronic thrombocytopenia who was recently diagnosed with diffuse large B-cell lymphoma and CMML. He noticed right-sided neck swelling around July, for which [facility] and prednisone with no significant improvement in symptoms. He then presented to the ED [facility] on 09/20/2022 with sore throat and worsening right-sided lymphadenopathy. CT soft tissue neck on 09/20/2022 revealed pathologically enlarged right cervical chain lymph nodes with largest lymph node measuring 2.6 x 2.1 cm. He was also found to have mildly thickened and hyperemic pharyngeal mucosa with soft tissue thickening along the right aspect of the vallecula without obvious mass lesion identified. Patient was in the [facility] receiving a platelet transfusion when he became shaky and was shivering. Transfusion was stopped and he was given Solumedrol and Benadryl and transfered to the ED for further evaluation. Patient indicated that he has had increased falls, increased weakness and just feels like 'things are not moving in the right direction'. Patient and indicated that they are both becoming overwhelmed at home due to the burden of his illness and toxicities of his therapy are feeling that it is more than they can manage on their own; especially with his worsening weakness and becoming more dependent with his care and ADLs. Patient lives with his and adult son. Patient quite emotional during conversation however I indicated that it is important for them to have a goals of care conversation while the patient is still able to express his desires and goals related to his treatment. Patient expressed that he is not fearful of dying; however he did indicate that he would like to live but if it appears that his life is limited or that the majority of the remaining part of his life would be spent in and out of the hospital that he would prefer to transition to a more hospice approach to his care and remain at home with symptom management. We discussed the difference between palliative medicine and hospice services. I asked him what was important to him and what brought him felicitas and he reflected on his family and grandchild that just turned 18. He said that 1 goal that he has that he has not fulfilled is to take a trip in his pickup truck and drive out [place]. He indicated that Jasmine is not of strong importance to him but he does not fear dying. Patient is sitting upright in his hospital bed with shin, dusky skin complexion. Patient is not using any accessory or diaphragmatic muscle use for his breathing. Patient is normotensive without tachycardia and is able to speak in complete sentences without hypoxia. Patient states that he is experiencing chronic generalized pain. Patient reports that he has had increased bowel movements that have been soft and dark. For now, we will continue to monitor and trend his laboratory work including his lactic acid, transfusing PRBCs and monitoring Hgb. Patient will be admitted for further evaluation and management. Please see A/P for further details. Admission Exam Per Admitting Provider Neuro: AAOx4, PERRLA, no aphagia, memory changes, CNII-XII grossly intact . Able to speak in complete sentences HEENT: head normocephalic, moist mucus membranes CV: S1/S2, (-) M/G/R, (-) edema, cap refill < 3 seconds Resp: Lungs CTA in all palomo. On 2LNC. No diaphragmatic use of muscles. No accessory muscle use. GI: Abdomen S/NT/ND, Ax4 bowel sounds, (-) CVA tenderness Musculoskeletal: 5/5 B/L UE strength, 5/5 B/L LE strength. Increased weakness. Right AC double-lumen PICC Skin: (-) rashes , (-) erythema. 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 Thin/frail/weak appearing. HEENT: No pallor, no icterus. Pupils equal, round and reactive to light. Oral mucosa moist. NECK: No JVD, no neck masses. HEART: S1 and S2 heard. regular rate and rhythm. No murmur, no gallop. RESPIRATORY SYSTEM: Normal AP diameter. No accessory muscle use. No wheezing, no crackles. ABDOMEN: Soft, bowel sounds present, nontender, no distention. CENTRAL NERVOUS SYSTEM: No facial droop. Speech is clear. Obeys simple commands. Moves extremities. EXTREMITIES: No edema, no erythema seen. Discharge Data Allergies Allergy/AdvReac Type Severity Reaction Status Date / Time cephalexin Allergy Intermediate vomiting, Verified 11/26/22 12:55 diarrhea Consultations 11/26/22 17:29 ED Decision to Admit Stat 11/26/22 21:15 Consult Hematology Routine 11/27/22 08:00 Consult Hematology Routine 11/29/22 08:00 Consult Palliative Care Routine 12/04/22 17:01 Consult Cardiology Routine Ordered Studies 12/03/22 06:14 CT abd pelvis IV con only Urgent Hospital Course (1) B-cell lymphoma of lymph nodes of head: (2) CMML (chronic myelomonocytic leukemia): (3) Pancytopenia: (4) Frequent falls: (5) Peripheral arterial disease: (6) Tachy-boris syndrome: (7) Dyslipidemia: (8) COPD (chronic obstructive pulmonary disease): (9) Goals of care, counseling/discussion: Plan 72-year-old male with a quite complex medical history including non- Hodgkin's B-cell lymphoma, CML, chronic thrombocytopenia, history of SSS status post PPM, HTN, valvular heart disease with mild MR/TR, AAA, history of SVT, PAD, COPD, 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 Patient was recently discharged with an admission 11/18 to 11/23 secondary to fall at home and right hip fracture status post right intramedullary nail placement on 10/[address] Null. Patient was at that point discharged to SNF for PT OT and rehabilitation which was necessary for completion prior to initiation of chemotherapy treatment per his oncologist. Patient has been home for 3 days [employer] and has been, increasingly challenging to care for physically due to increased weakness. Pt was receiving platelet transfusion in the [facility] clinic when he became shaky and shivering (s/p solumedrol and benadryl in [facility]) and hence was sent to ED for evaluation. He is being man aged for the following: Diffuse B Cell Lymphoma of head/neck: s/p 1 cycle of RCEOP (11/18/22 - 11/21/22). Chronic myelomonocytic leukemia: Chronic Thrombocytopenia: Transfusion reaction/to platelets transfusion: Recently discharged 11/23 with PICC line. Last Admission marrow biopsy consistent with CMML with multiple mutations including SRS F2 and TET 2 11/19/22 CT Neck:. The majority of the enlarged right cervical lymph nodes seen on the prior study are almost completely cystic/necrotic and have also slightly increased in size. Neoplastic/metastatic disease of the diagnosis of exclusion. Of note, these were previously biopsied. There are few new mildly enlarged right posterior cervical chain lymph nodes. Emphysema. Admitting: WBC 0.84K; Hb 6.7; Plt 10K; CXR w/ no acute findings/no pna or ptx. Continue allopurinol for tumor lysis syndrome prophylaxis Hem Onc on board, d/w hem onc 11/27 - filgrastim for 2 to 3 days, goal of Hb >7.5 and Plt >15K. Pt will require premedications prior to transfusion as OP s/p 2 units prbc and 4 unit platelets. s/p filgrastim for 3 days. Transfuse rbc or platelets as needed. Needs outpatient PET scan that has not occurred yet. Pt remains afebrile. Afib RVR: Pt w/ new afib, onset 12/04 evening, TSH wnl. Currently pt in and out of afib, rate better controlled today. cardio on board - c/w metoprolol and amiodarone. Not a candidate for chronic anticoagulation give recurrent falls and tendency to get pancytopenia from his cancer therapy. Midodrine and diltiazem discontinued; being discharged on prior home dose of metoprolol and amiodarone 200 mg BIDM. f/u w/ cardion in 1-2 weeks time. Increase blood lactic acid level: Lactate 5.7 at presentation with other labs as above at presentation. suspect related to thrombocytopenia and disease process. Patient with no signs and symptoms of infection 1 to 2 weeks prior to arrival per Pt. Procalcitonin at presentation was negative. Lactate downtrended. UA and CXR negative for infection at presentation. Meropenem started empirically on 11/26 was discontinued 11/27. Pt afebrile. Repeat procal on 11/28 is negative. Admitting blood culture - no growth. Pt has been afebrile. Leucocytosis: noted 12/03, may be trending up towards his previous lymphoma level. Pt did complain burning while passing urine on 12/03. Also pt has h/o aspiration. 12/03 blood culture -NG48 hrs. Changed rocephin 12/03 to Augmentin 12/04 --- total 5-7 days, to complete course on dc. Sore throat/?bronchitis: Pt complains of sore throat 11/30 a/w cough w/ clear mucus. 11/28 Viral panel negative; 11/28 CXR w/ no acute findings. 11/28 Strep throat PCR negative. Pt afebrile. Chloraseptic spray. s/p empiric doxy course for bronchitis given immunocompromised status. symptomatic care. Pt reports no more sore throat. Pressure Ulcers: Right ankle ulcer POA -unstageable and bilateral heel pressure ulcer - unstageable. WOCN on board, dressings. Goals of care; counseling/discussion: noted prior attending's/team d/w pt on 11/26. Appreciate pall care recs ---> pt can have both hospice level nursing support and chemo under [facility]; CM to assist w/ dc planning. Severe protein calorie malnutrition: Significant weight loss > 30 pounds since 08/17. Continue Megace; per this was never started post discharge. Appetite has been ok lately. Frequent falls:Recent R hip fx s/p IM nail by Dr. Null 10/27/22. Pt/ot; Fall precaution. f/u ortho on dc as scheduled prior. PAD: c/w statin. ABIs done on 03/17 showed R 0.87 and L 0.85 at rest concerning for occlusive disease to b/l SFA and tibial artery along with L iliac disease. Arterial Doppler:Moderate atherosclerotic plaque within the bilateral lower extremities. Suspected occlusion of the distal left posterior tibial artery, otherwise patent vessels. Monophasic flow within the bilateral calf vessels. H/o Dysphagia Video swallow:few episodes of trace silent aspiration with the thin liquid barium only. Aspiration precautions Appreciate speech therapy recommendations Continue moist~cut easy to chew diet with thin liquids No need for further speech therapy at this point. SSS S/P PPM -Orthostatic hypotension; SBP mid 90s in ED. MAP greater than 60 -Valvular heart disease -H/O PSVT - cardio evaled, recs as above. COPD: c/w home inhalers. no signs of exacerbation. Disposition: PCP: Dr. Bradshaw Code Status: DNR/DNI VTE Prophylaxis: scds. Dispo: PT/OT eval; cm to assist. Patient being discharged to group home with following instructions at the point of discharge: Follow-up with your primary care physician within a week time and likely you will need labs CBC/CMP/magnesium/phosphorus. Follow-up with your cancer doctor as prior for ongoing treatment of your lymphoma. Since you had allergy to platelet transfusion as an outpatient, you received irradiated platelets while in here. Either you need irradiated platelets if you need in future or premedication prior to transfusion. Follow up with you plan for Outpatient PET Scan. You also developed atrial fibrillation with rapid ventricular response, cardiology evaluated you, you are being discharged on amiodarone, continue your home metoprolol dose. Diltiazem and midodrine has been discontinued. You will need to follow-up with cardiology in 1 to 2 weeks time. Since you were considered poor candidate for long-term anticoagulation due to your weakness/recurrent falls, if that changes in future, you will need reevaluation for consideration for anticoagulation. You will be discharged with few days worth of antibiotic to complete the course for UTI. Continue ongoing physical therapy and Occupational Therapy. Continue with minced and moist diet/easy to chew diet as per our speech therapy recommendation while inpatient. Follow up with wound care as outpatient for your b/l heel pressure ulcers care. Follow up with ortho on dc as scheduled prior. Take your medications as prescribed. Please make sure that you are able to get your medications today by calling your pharmacy before you leave the hospital so that your treatment continuity is not broken. Home Health Attestation I certify that this patient is under my care and that I, or a physicians college sports assistant working with me, had a face to-face encounter that meets the home health xsoo-di-uwti encounter requirements with this patient. The encounter with the patient was in whole, or in part, for the following medical condition, which is the primary reason for home health care (list medical condition): weakness- transfusion reaction I certify that, based on my findings, the following services are medically necessary home health services: My clinical findings support the need for the above services because: OT Assess ADL Status and Restore Function w ADLs PT Assessment for Endurance / Balance / Strength PT Eval for Safety and Mobility PT Eval for Safety, Gait Training, Assistive Devices PT Gait and Balance Training, Strengthening and Safety Skilled Nsg Assessment Further, I certify that my clinical findings support that this patient is homebound (i.e. absences from home require considerable and taxing effort and are for medical reasons or tenriism services or infrequently or of short duration when for other reasons) because: Supportive Aid - Walker Transportation Assistance/Unable to Leave Home Unassisted Certification for Home Health Services: Based on the above findings, I certify that this patient is confined to the home and needs intermittent care home care, physical therapy and/or speech therapy or continues to need occupational therapy. The patient is under my care, and I have initiated the establishment of the plan of care. This patient will be followed by a physician who will periodically review the plan of care. Total Time Total Time Spent Total Time Spent (In Minutes): 55 Discharge Plan Discharge Items Patient Disposition: Transfer Correction Fac Reason For Visit: WEAKNESS Discharge Diagnosis: Diffuse B-cell lymphoma of head and neck Chronic myelomonocytic leukemia Chronic thrombocytopenia Transfusion reaction to platelets transfusion Atrial fibrillation RVR, new onset A-fib UTI Severe protein calorie malnutrition Activity: Resume your previous activity Non-emergency contact: Primary Care Provider Call non-emergency contact if: you have any medication questions, your symptoms worsen and your pain is worsening Follow-up/Referrals: Kimmy Bradshaw PA-C [Primary Care Provider] - Diet: Regular Diet Texture: Easy to Chew Addtl Attending Provider Instructions: Follow-up with your primary care physician within a week time and likely you will need labs CBC/CMP/magnesium/phosphorus. Follow-up with your cancer doctor as prior for ongoing treatment of your lymphoma. Since you had allergy to platelet transfusion as an outpatient, you received irradiated platelets while in here. Either you need irradiated platelets if you need in future or premedication prior to transfusion. Follow up with you plan for Outpatient PET Scan. You also developed atrial fibrillation with rapid ventricular response, cardiology evaluated you, you are being discharged on amiodarone, continue your home metoprolol dose. Diltiazem and midodrine has been discontinued. You will need to follow-up with cardiology in 1 to 2 weeks time. Since you were considered poor candidate for long-term anticoagulation due to your weakness/recurrent falls, if that changes in future, you will need reevaluation for consideration for anticoagulation. You will be discharged with few days worth of antibiotic to complete the course for UTI. Continue ongoing physical therapy and Occupational Therapy. Continue with minced and moist diet/easy to chew diet as per our speech therapy recommendation while inpatient. Follow up with wound care as outpatient for your b/l heel pressure ulcers care. Follow up with ortho on dc as scheduled prior. Take your medications as prescribed. Please make sure that you are able to get your medications today by calling your pharmacy before you leave the hospital so that your treatment continuity is not broken. Pending Studies at Discharge: Yes (Blood culture final results.) Stand-Alone Forms: My [facility] Skilled Items Patient informed of condition?: Yes DNR: Yes Discharge Level of Care: Skilled Communicable Disease: No Discharge Prognosis: Stable Lines: PICC Urinary Catheter: No Medications and DC Order Prescriptions: New amoxicillin-pot clavulanate 875-125 mg Tablet 1 tab PO BIDM 4 Days Qty: 8 0RF amiodarone 200 mg Tablet 200 mg PO BIDM Qty: 60 0RF Advanced Probiotic 625 mg (10 billion cell) Capsule 2 cap PO DAILY 7 Days Qty: 14 0RF Continued Ear Drops (carbamide peroxide) 6.5 % Drops 5 drp OTR BID PRN (Reason: earwax) Qty: 15 0RF Rx Instructions: Use twice a day up to 4 days as needed Cerovite Senior 0.4 mg-300 mcg- 250 mcg Tablet 1 tab PO QAM Qty: 30 0RF cyclobenzaprine 10 mg Tablet 10 mg PO BID Qty: 60 0RF atorvastatin 40 mg Tablet 40 mg PO QAM Qty: 30 0RF polyethylene glycol 3350 [Miralax] 17 gram Powder In Packet 17 g PO QAM PRN (Reason: Constipation) Qty: 14 0RF acetaminophen 500 mg Tablet 500 mg PO Q6H PRN (Reason: Pain) Qty: 60 0RF pantoprazole [Protonix] 40 mg tablet,delayed release (DR/EC) 40 mg PO QAM Qty: 30 0RF Rx Instructions: 30 mins before breakfast on an empty stomach metoprolol tartrate [Lopressor] 50 mg tablet 50 mg PO BID Qty: 60 0RF allopurinol 300 mg Tablet 300 mg PO QAM Qty: 30 0RF albuterol sulfate 90 mcg/actuation Hfa Aerosol Inhaler 1 inh INHALATION QID PRN (Reason: sob) Qty: 6.7 0RF ondansetron 4 mg Tablet,Disintegrating 4 mg PO Q8H PRN (Reason: Nausea) Qty: 10 0RF oxycodone 5 mg Tablet 5 mg PO Q6H PRN (Reason: severe pain (scale score 7-10)) Qty: 12 0RF hydrocodone-acetaminophen 7.5-325 mg Tablet 1 tab PO Q8H PRN (Reason: Pain) megestrol 40 mg Tablet 40 mg PO QAM Qty: 30 0RF Discontinued diltiazem HCl [Cardizem] 30 mg tablet 30 mg PO BID Qty: 60 0RF midodrine 2.5 mg Tablet 2.5 mg PO TID@0800,1200,1700 Qty: 90 0RF Discharge Orders: Discharge Order (Routine); Ordered 12/07/22 Ordered By: Davion Murguia Admission Data Admit Date/Time: 11/26/22 17:36 Attending Provider: Davion Murguia Admit Provider: Stefano Kramer Primary Care Provider: Kimmy Bradshaw Other Providers: Anjelica Darling ; Stefano Kramer ; Flavia Alan ; Niyah Rojas ; [facility] ; [place] ; Criselda Bartlett [facility] ; Dipesh Cheney ; [place] Other Interventions: Discharge Summary Assessment (RN) Last Done: 12/07/22 13:25
--- NOTE | 2022-12-07 22:27 | Electrocardiogram Report ---
Test Reason : Blood Pressure : / mmHG Vent. Rate : 092 BPM Atrial Rate : 092 BPM P-R Int : 160 ms QRS Dur : 092 ms QT Int : 390 ms P-R-T Axes : 077 -11 -15 degrees QTc Int : 482 ms Poor data quality, interpretation may be adversely affected Normal sinus rhythm Possible Left atrial enlargement Inferior infarct (cited on or before 06-DEC-2022) Prolonged QT Abnormal ECG When compared with ECG of 05-DEC-2022 05:55, No significant change was found Confirmed by Issac Bynum ([id number]) on 12/07/2022 10:27:02 PM Referred By: REFERRED SELF Confirmed By:Issac Bynum
== END 2022-12-07 14:29 | DRG 840 ==
LOC: ED 15:27 → SUATTDRO 17:36 → EDINP 17:36 → 1E 21:16 → 2E 11-27 19:12
DX: Z88.1 Allergy status to other antibiotic agents; G62.9 Polyneuropathy, unspecified; J44.9 Chronic obstructive pulmonary disease, unspecified; I25.9 Chronic ischemic heart disease, unspecified; I71.40 Abdominal aortic aneurysm, without rupture, unspecified; R13.10 Dysphagia, unspecified; R25.9 Unspecified abnormal involuntary movements; E87.20 Acidosis, unspecified; J40 Bronchitis, not specified as acute or chronic; E43 Unspecified severe protein-calorie malnutrition; Z66 Do not resuscitate; D61.818 Other pancytopenia; J43.9 Emphysema, unspecified; I25.2 Old myocardial infarction; C93.10 Chronic myelomonocytic leukemia not having achieved remission; R29.6 Repeated falls; N39.0 Urinary tract infection, site not specified; Z95.0 Presence of cardiac pacemaker; I95.1 Orthostatic hypotension; L89.620 Pressure ulcer of left heel, unstageable; D84.9 Immunodeficiency, unspecified; C85.11 Unspecified B-cell lymphoma, lymph nodes of head, face, and neck; T45.8X5A Adverse effect of other primarily systemic and hematological agents, initial encounter; I49.5 Sick sinus syndrome; L89.510 Pressure ulcer of right ankle, unstageable; D69.6 Thrombocytopenia, unspecified; K76.0 Fatty (change of) liver, not elsewhere classified; L89.610 Pressure ulcer of right heel, unstageable; Z79.899 Other long term (current) drug therapy; Z51.5 Encounter for palliative care; I25.10 Atherosclerotic heart disease of native coronary artery without angina pectoris; R06.02 Shortness of breath; I48.0 Paroxysmal atrial fibrillation

== ENCOUNTER 2022-12-26 13:46 | Inpatient (IN) ==
[2022-12-26] MEDS ORDERED: SODIUM CHLORIDE 0.9% 1000ML 1,000 ML IV ONE ×2 (14:08→15:35)
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
[2022-12-26 15:57] LABS: Albumin Globulin Ratio 1.3 (0.9-2); BUN Creatinine Ratio 21.1 (10-20); Calcium 9.6 mg/dl (8.6-10.3); Creatinine Clr Calc Pharmacy 50.3 ml/min; Est GFR (African American) 77.6 ml/min; Globulin 3.1 gm/dl (2.5-4.0); Potassium 3.6 mmol/L (3.5-5.1); Total Protein 7.1 gm/dl (6.0-8.3)
[2022-12-26 16:03] LABS: Troponin I High Sensitivity 23.9 pg/ml (0-20)
--- NOTE | 2022-12-26 16:07 | XRay Report ---
XR chest 1V portable CLINICAL HISTORY: Chest pain, nonspecific TECHNIQUE: Single frontal radiograph of the chest was obtained. Comparison: Comparison is made to chest radiograph 11/30/2022 FINDINGS: Dual lead pacemaker is seen. Calcified aortic knob is seen. Right lower lung airspace opacity is note d. Lesser degree of airspace opacity is seen elsewhere. IMPRESSION: Right lower lung airspace opacity compatible with pneumonia. ACT 112: Negative or not required by law. Electronically signed by: Kvng Delatorre M.D. 12/26/2022 4:05 PM
[2022-12-26 16:16] LABS: Anisocytosis Present; Basophils # (auto) 0.02 K/uL (0-0.2); Basophils % (auto) 0.2 %; Eosinophils # (auto) 0.36 K/uL (0-0.50); Eosinophils % (auto) 3.7 %; Hematocrit (blood only) 31.1 % (42.0-52.0); Hemoglobin 9.7 g/dl (14.0-18.0); Immature Granulocytes # (auto) 0.03 K/uL (0.01-0.20); Immature Granulocytes % (auto) 0.3 %; Lymphocytes # (auto) 2.07 K/uL (1.2-3.4); Lymphocytes % (auto) 21.3 %; Mean Corpuscular Hemoglobin 26.6 pg (25.0-34.0); Mean Corpuscular Hgb Conc 31.2 g/dL (32.0-36.0); Mean Corpuscular Volume 85.2 fL (80.0-100.0); Monocytes # (auto) 3.51 K/uL (0.11-0.59); Neutrophils # (auto) 3.75 K/uL (1.40-6.50); Neutrophils % (auto) 38.5 %; Platelet Count 53 K/uL (130-400); RDW Standard Deviation 73.3 fL (36.4-46.3); Red Blood Count 3.65 M/uL (4.70-6.10); White Blood Count 9.74 K/ul (4.8-10.8)
[2022-12-26] MEDS ORDERED: OPTIRAY 320 500ml IV ONE (16:35)
[2022-12-26 16:53] LABS: Influenza A virus by PCR Negative (Neg); Influenza B virus by PCR Negative (Neg); RSV by PCR Negative (Neg); SARS CoV2 RNA(COVID-19) Ceph NEGATIVE (Negative)
--- NOTE | 2022-12-26 17:13 | CT Scan Report ---
CT angio head wo/w, CT angio neck with con CLINICAL HISTORY: ?cva TECHNIQUE: Contiguous axial CT images of the head were acquired from the base of the skull to the abdoul alexis without intravenous contrast administration. CT angiography of the head and neck was performed f ollowing intravenous administration of iodinated contrast. Coronal and sagittal MIPS were obtained fr om the axial data set and were submitted for review. Automated dose lowering techniques and/or adjus tment according to patient size were utilized for this examination. All measurements were calculated based on NASCET criteria. Comparison: Comparison is made to CT head 10/16/2022 FINDINGS: CT head: There is no acute intracranial hemorrhage or evidence of acute territorial infarction. No sh ift of the midline structures, mass effect, or extra-axial abnormalities are shown. Emphysema is seen in the lungs. CTA Neck: A 3 vessel aortic arch is shown. Atherosclerotic plaque is present in the aortic arch and at the origin of the great vessels. Significant but likely hemodynamically nonsignificant stenosis is seen just proximal to the right carotid bulb. The left vertebral artery is dominant. CTA Head: The anterior and posterior cerebral circulations are patent. origin of the right pos terior cerebral artery is seen. IMPRESSION: 1. No acute intracranial hemorrhage, evidence of acute territorial infarction, or other acute intrac ranial disease process. 2. No occlusion, hemodynamically significant stenosis, or dissection in the major cervical arteries. 3. No occlusion, hemodynamically significant stenosis, aneurysm, dissection, or arteriovenous malfor mation in the major intracranial arteries. Assessment of stenosis of the internal carotid arteries is based on NASCET criteria. ACT 112: Negative or not required by law. Electronically signed by: Kvng Delatorre M.D. 12/26/2022 5:11 PM
--- NOTE | 2022-12-26 17:21 | CT Scan Report ---
CT soft tissue neck w con CLINICAL HISTORY: trouble talking with throat cancer Technique: Axial CT images of the soft tissues of the neck were obtained following intravenous admini stration of 100 cc of Omnipaque 300. Automated dose lowering techniques and/or adjustment according t o patient size were utilized for this exam. CT DOSE: 1565.13 mGy.cm Comparison: Comparison is made to CT neck 11/19/2022 Findings: Exam is limited by patient motion. There is a right 20 mm hypodense lesion just anterior to the carotid bifurcation compatible with a ne crotic lymph node which has decreased in size from October were measured 28 mm. There is also a 13 m m hypodensity deep to the SCM which is decreased from prior exam where it measured 18 mm. The orophar ynx, hypopharynx, larynx, and trachea are patent. No enlarged lymph nodes are seen. The parotid gland s, submandibular glands, and thyroid gland are unremarkable. Imaged portions of the brain parenchyma are unremarkable. The paranasal sinuses and mastoid air cell s are normal in appearance. Impression: Necrotic lymph nodes are further decreased in size from prior exam. ACT 112: Negative or not required by law. Electronically signed by: Kvng Delatorre M.D. 12/26/2022 5:19 PM
[2022-12-26] MEDS ORDERED: levoFLOXacin/D5W 750 MG/150 ML BAG IV STA (17:27)
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
[2022-12-26 19:36] LABS: Fibrinogen 429 mg/dl (184-400); INR 1.2 (0.9-1.1); Partial Thromboplastin Ratio 1.2; Prothrombin Time 12.7 Seconds (9.0-12.0)
[2022-12-26] MEDS ORDERED: METOPROLOL TARTRATE 50 MG TAB PO ONE (19:40)
[2022-12-26] MEDS ORDERED: ALBUTEROL HFA 8 GM INHALER INH PRN (19:42)
[2022-12-26] MEDS ORDERED: CARBAMIDE PEROXIDE 6.5% 15 ML BTL OTR PRN (19:42)
[2022-12-26] MEDS ORDERED: AMIODARONE 200 MG TAB PO ONE (19:43)
[2022-12-26] MEDS ORDERED: METOPROLOL TARTRATE 50 MG TAB PO SCH (19:45)
[2022-12-26] MEDS ORDERED: ONDANSETRON INJ 2 MG/ML 2 ML VIAL IV PRN (20:33)
[2022-12-26] MEDS ORDERED: POLYETHYLENE (MIRALAX) 17 GM PACK PO PRN (20:33)
[2022-12-26] MEDS: HYDROCODONE/ACETAMINOPHEN 7.5/325MG TAB PO SCH ×2 (20:57→21:35)
[2022-12-26] MEDS: CYCLOBENZAPRINE HCL 10 MG TAB PO SCH (21:29)
[2022-12-26] MEDS: cefTRIAXone SODIUM 2,000 MG in DEXTROSE 5% 50 ML IV SCH (21:29)
[2022-12-26] MEDS: DOXYCYCLINE HYCLATE 100 MG in DEXTROSE 5% 100 ML IV SCH (22:15)
[2022-12-26] MEDS ORDERED: SODIUM CHLORIDE 0.9% 1000ML 500 ML IV SCH (23:15)
--- NOTE | 2022-12-27 01:42 | CT Scan Report ---
Exam(s): CT CHEST Without Contrast EXAM: CT Chest Without Intravenous Contrast CLINICAL HISTORY: Reason for exam: RLL PNA. TECHNIQUE: Axial computed tomography images of the chest without intravenous contrast. CTDI is 6.42 mGy and DLP is 206.16 mGy-cm. Automated exposure control was utilized for the study. A dose lowering technique was utilized adhering to the principles of ALARA. COMPARISON: 02/04/2022. FINDINGS: Lungs: Right lower lobe consolidation suggestive of residual atelectasis versus infiltrate. Mild interstitial opacity in the left lower lobe which may indicate a focal interstitial changes versus pneumonitis. Biapical mid upper lung emphysematous changes, otherwise clear lung. Pleural space: Mild right-sided pleural effusion. No pneumothorax. Heart: Unremarkable. No cardiomegaly. No significant pericardial effusion. No significant coronary artery calcifications. Bones/joints: Mild compression fracture of the approximate T7 vertebral body, stable. Mild degenerative disease of thoracic spine. No acute fracture. No dislocation. Soft tissues: Unremarkable. Vasculature: Atherosclerotic disease of aorta with mild ectasia measuring 2.9 cm. No thoracic aortic aneurysm. Lymph nodes: Unremarkable. No enlarged lymph nodes. Liver: Upper abdomen reveals low-attenuation structures within the liver, difficult to characterize due to small size measuring up to 5 mm, likely benign such as liver cysts. Tubes, lines and devices: There is a left-sided pacemaker in place. IMPRESSION: 1. Underlying emphysema, more significant in the lung apices . 2. Mild right-sided pleural effusion with right lower lobe atelectasis versus residual infiltrate. 3. Focal interstitial changes versus residual pneumonitis in the left lower lobe. 4. No pneumothorax. Electronically signed by: Bertha Isabel MD 12/27/22 01:41 AM
[2022-12-27 06:59] LABS: BUN Creatinine Ratio 18.8 (10-20); Creatinine Clr Calc Pharmacy 56.4 ml/min; Est GFR (African American) 90.5 ml/min; Est GFR (Non-African American) 78.1 ml/min; Potassium 3.6 mmol/L (3.5-5.1)
[2022-12-27 07:03] LABS: Hematocrit (blood only) 28.6 % (42.0-52.0); Hemoglobin 8.8 g/dl (14.0-18.0); Mean Corpuscular Hemoglobin 26.6 pg (25.0-34.0); Mean Corpuscular Hgb Conc 30.8 g/dL (32.0-36.0); Mean Corpuscular Volume 86.4 fL (80.0-100.0); Platelet Count 41 K/uL (130-400); RDW Coefficient of Variation 24.1 % (11.5-14.5); RDW Standard Deviation 73.4 fL (36.4-46.3); Red Blood Count 3.31 M/uL (4.70-6.10); White Blood Count 11.02 K/ul (4.8-10.8)
--- NOTE | 2022-12-27 07:38 | Hospitalist Progress Note ---
Date of Service December 27, 2022 Assessment & Plan (1) Acute metabolic encephalopathy: (2) Pneumonia: (3) Weakness: (4) HTN (hypertension): (5) Tachy-boris syndrome: (6) Thrombocytopenia: (7) B-cell lymphoma: (8) COPD (chronic obstructive pulmonary disease): (9) NSTEMI (non-ST elevated myocardial infarction): (10) CMML (chronic myelomonocytic leukemia): (11) Chronic ischemic heart disease: (12) Paroxysmal atrial fibrillation: Plan This is a 72yo M with a complex PMH of 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 Acute delirium Likely multifactorial in setting of infection, possible opioid withdrawal vs general illness Has been taking hydrocodone TID for cancer related pain but has not taken any narcotics since yesterday - resume hydrocodone with careful monitoring CT head, CTA head/neck without acute findings Infection discussed below 12/27: Today he appeared too fatigued to take his scheduled hydrocodone. Will back down on the dose to 5mg and change to BID dosing with PRN in addition as needed for breakthrough. Hypoxia RLL pneumonia, previously noted on imaging Was recent admitted to our service earlier in November with e/o RLL pna and was treated with Rocephin and then discharged on Augmentin CXR today with Right lower lung airspace opacity compatible with pneumonia-this was already present on CT from 12/03 continue with aspiration precautions and Rocephin/doxy CT chest reveals an improvement in the pna Continue supplemental O2 - underlying COPD so goal to maintain O2 ~90-92% 12/27: still hypoxic, consider CT PE in am pending improvement in hyopxia overnight. Paroxysmal A fib Diagnosed during admission last month Following with cardiology, given missed doses of amiodarone 200mg (dose decreased last week) and Lopressor Not a candidate for aspirin or anticoagulation with history of thrombocytopenia Diffuse B Cell Lymphoma of head/neck:s/p 1 cycle of RCEOP (11/18/22 - 11/21/22) Chronic myelomonocytic leukemia: Chronic Thrombocytopenia: Transfusion reaction/to platelets transfusion: Following with Dr. Rojas - randolph on hold for now, picc was removed Soft tissue neck CT with necrotic lymph nodes are further decreased in size from prior exam Continue allopurinol for tumor lysis syndrome prophylaxis Chronic thrombocytopenia, h/o ITP Plt 53 today. Monitor with daily CBC. Consider transfusion for plt <20 and bleeding or <10 Severe protein calorie malnutrition:Significant weight loss > 30 pounds since 08/17.Continue Megace; per this was never started post discharge. Appetite has been okay until today Frequent falls:Recent R hip fx s/p IM nail by Dr. Null 10/27/22. Pt/ot; Fall precaution.f/u orthothis week - will need to reschedule PAD: c/w statin. ABIs done on 03/17 showed R 0.87 and L 0.85 at rest concerning for occlusive disease to b/l SFA and tibial artery along with L iliac disease. Arterial Doppler:Moderate atherosclerotic plaque within the bilateral lower extremities. Suspected occlusion of the distal left posterior tibial artery, otherwise patent vessels. Monophasic flow within the bilateral calf vessels H/o Dysphagia Video swallow:few episodes of trace silent aspiration with the thin liquid barium only.= Aspiration precautions Appreciate speech therapy recommendations Continue minced and moist, easy to chew diet with thin liquids Notably when patient is confused/somnolent aspiration risk increases. SSS S/P PPM in 2019 COPD: c/w home inhalers. no signs of exacerbation Goals of care; counseling/discussion:noted prior attending's/team d/w pt on 11/26. Appreciate pall care recs ---> pt can have both hospice level nursing support and chemo under his [facility] benefit but patient and not interested in pursuing hospice at this time Disposition PCP: Dr. Bradshaw Code Status: DNR/DNI VTE Prophylaxis: SCDs, avoid chemical vte ppx given thrombocytopenia Dispo: admitted to PCU Admission and Anticipated Discharge Date Admission Date: December 26, 2022 Subjective 72 yoM presented with delirium and hypoxia Today he "feelss fine" Yasmani is notably less fidgety but is still very fatigued as if he didn't get much rest overnight Repeat CT chest reviewed with and compared to previous films Pneumonia appears improved Patient denies pain states he is not eating much Review of Systems Review of Systems: All systems reviewed and negative except as indicated above. Physical Exam Physical Exam: CONSTITUTIONAL: thin, vitals as above, generally appears fatigued but can wake eup too verbal stimulus and follow instructions. EYES: normal conjunctivae, no scleral icterus ENT: external ear and nose normal, MMM NECK: trachea midline RESPIRATORY: clear to auscultation bilaterally, no crackles, rales or wheezes, normal respiratory effort CARDIOVASCULAR: regular rate and rhythm, S1 and 2 heard without murmurs, gallops or rubs, no JVD, no peripheral edema CHEST: inspection of chest was normal GASTROINTESTINAL: soft, nontender, ND, no guarding MUSCULOSKELETAL: strength 5/5 throughout, head is normocephalic and atraumatic, neck supple, normal palpation of chest wall without tenderness SKIN: warm and dry, no rashes NEUROLOGIC: CN 2-12 grossly intact, no sensory deficit, normal cognition, normal speech, no tremor PSYCHIATRIC: alert cooperative and oriented to person, place and time. Euthy antoine mood, makes good eye contact, language grossly intact, recent and remote memory grossly intact. Results & Data Results & Data Vital Signs (Past 12 Hours) Vital Signs Temp Pulse Pulse Pulse Resp BP Pulse Ox 12/26/22 20:49 12/26/22 20:49 12/26/22 20:49 12/27/22 00:41 36.3 C L 89 19 132/77 95 12/26/22 20:49 36.7 C 110 H 20 137/78 96 12/26/22 23:25 119 H 12/26/22 22:31 114 H 12/26/22 20:49 36.7 C 110 H 20 137/78 96 12/26/22 20:12 116 H 18 156/84 H 91 Pulse Ox O2 Del Method O2 Del Method O2 Flow Rate O2 Flow Rate 12/26/22 20:49 Nasal Cannula 4 12/26/22 20:49 Nasal Cannula 4 12/26/22 20:49 95 Nasal Cannula 4 12/27/22 00:41 Nasal Cannula 4 12/26/22 20:49 Nasal Cannula 4 12/26/22 23:25 12/26/22 22:31 12/26/22 20:49 Nasal Cannula 2 12/26/22 20:12 Nasal Cannula 4 Laboratory Results Short CBC 12/26/22 12/27/22 Range/Units 13:55 05:31 WBC 9.74 11.02 H (4.8-10.8) K/ul Hgb 9.7 L 8.8 L (14.0-18.0) g/dl Hct 31.1 L 28.6 L (42.0-52.0) % Plt Count 53 L 41 L (130-400) K/uL BMP 12/26/22 12/27/22 13:55 05:31 Sodium 139 137 Potassium 3.6 3.6 Chloride 107 108 H Carbon Dioxide 22 20 L BUN 23 18 Creatinine 1.09 0.96 Glucose 96 87 Calcium 9.6 9.0 Liver Function 12/26/22 Range/Units 13:55 Total Bilirubin 1.0 (0.2-1.0) mg/dl AST 14 (13-39) U/L ALT 10 (7-52) U/L Alkaline Phosphatase 73 (34-104) U/L Albumin 4.0 (3.4-5.0) gm/dl Diagnostic Findings Chest CT 12/26/22 20:18 Exam(s): CT CHEST Without Contrast EXAM: CT Chest Without Intravenous Contrast CLINICAL HISTORY: Reason for exam: RLL PNA. TECHNIQUE: Axial computed tomography images of the chest without intravenous contrast. CTDI is 6.42 mGy and DLP is 206.16 mGy-cm. Automated exposure control was utilized for the study. A dose lowering technique was utilized adhering to the principles of ALARA. COMPARISON: 02/04/2022. FINDINGS: Lungs: Right lower lobe consolidation suggestive of residual atelectasis versus infiltrate. Mild interstitial opacity in the left lower lobe which may indicate a focal interstitial changes versus pneumonitis. Biapical mid upper lung emphysematous changes, otherwise clear lung. Pleural space: Mild right-sided pleural effusion. No pneumothorax. Heart: Unremarkable. No cardiomegaly. No significant pericardial effusion. No significant coronary artery calcifications. Bones/joints: Mild compression fracture of the approximate T7 vertebral body, stable. Mild degenerative disease of thoracic spine. No acute fracture. No dislocation. Soft tissues: Unremarkable. Vasculature: Atherosclerotic disease of aorta with mild ectasia measuring 2.9 cm. No thoracic aortic aneurysm. Lymph nodes: Unremarkable. No enlarged lymph nodes. Liver: Upper abdomen reveals low-attenuation structures within the liver, difficult to characterize due to small size measuring up to 5 mm, likely benign such as liver cysts. Tubes, lines and devices: There is a left-sided pacemaker in place. IMPRESSION: 1. Underlying emphysema, more significant in the lung apices . 2. Mild right-sided pleural effusion with right lower lobe atelectasis versus residual infiltrate. 3. Focal interstitial changes versus residual pneumonitis in the left lower lobe. 4. No pneumothorax. Electronically signed by: Bertha Isabel MD 12/27/22 01:41 AM Medications Administered Current Inpatient Medications Acetaminophen (Acetaminophen 325 Mg Tab) 650 mg PO Q4H PRN PRN Reason: Pain or Fever Stop: 01/25/23 20:32 Hydrocodone Bitart/Acetaminophen (Hydrocodone/Acetaminophen 7.5/325mg Tab) 1 tab PO TID COUNT INCLUDES THE [facility] Stop: 01/09/23 19:39 Last Admin: 12/26/22 21:35 Dose: 1 tab Albuterol (Albuterol Hfa 8 Gm Inhaler) 1 puffs INH QID PRN PRN Reason: sob Stop: 01/25/23 19:41 Allopurinol (Allopurinol 300 Mg Tab) 300 mg PO QAM COUNT INCLUDES THE [facility] Stop: 01/26/23 08:59 Amiodarone HCl (Amiodarone 200 Mg Tab) 200 mg PO DAILY COUNT INCLUDES THE [facility] Stop: 01/26/23 08:59 Atorvastatin Calcium (Atorvastatin 40 Mg Tab) 40 mg PO QAM COUNT INCLUDES THE [facility] Stop: 01/26/23 08:59 Carbamide Peroxide (Carbamide Peroxide 6.5% 15 Ml Btl) 5 drops OTR BID PRN PRN Reason: earwax Stop: 12/30/22 19:41 Cyclobenzaprine HCl (Cyclobenzaprine Hcl 10 Mg Tab) 10 mg PO BID COUNT INCLUDES THE [facility] Stop: 01/25/23 20:59 Last Admin: 12/26/22 21:29 Dose: 10 mg Ceftriaxone Sodium 2,000 mg/ (Dextrose) 70 mls @ 100 mls/hr IV Q24H COUNT INCLUDES THE [facility]; Protocol Stop: 01/01/23 21:41 Last Infusion: 12/26/22 22:15 Dose: Infused Doxycycline Hyclate 100 mg/ (Dextrose) 110 mls @ 50 mls/hr IV Q12H COUNT INCLUDES THE [facility] Stop: 01/02/23 21:59 Last Infusion: 12/27/22 00:40 Dose: Infused Megestrol Acetate (Megestrol Acetate 40 Mg Tab) 40 mg PO QAM COUNT INCLUDES THE [facility] Stop: 01/26/23 08:59 Metoprolol Tartrate (Metoprolol Tartrate 50 Mg Tab) 50 mg PO BID COUNT INCLUDES THE [facility] Stop: 01/26/23 08:59 Multivitamins/Minerals (Cerovite Adv Formula Tab) [facility] [place] Stop: 01/26/23 08:59 Ondansetron HCl (Ondansetron Inj 2 Mg/Ml 2 Ml Vial) 4 mg IV Q6H PRN PRN Reason: Nausea Stop: 01/25/23 20:32 Pantoprazole Sodium (Pantoprazole 40 Mg Tab) 40 mg PO QAM COUNT INCLUDES THE [facility] Stop: 01/26/23 08:59 Polyethylene Glycol (Polyethylene (Miralax) 17 Gm Pack) 17 gm PO DAILY PRN PRN Reason: Constipation Stop: 01/25/23 20:32
--- NOTE | 2022-12-27 08:28 | Electrocardiogram Report ---
Test Reason : Blood Pressure : / mmHG Vent. Rate : 103 BPM Atrial Rate : 103 BPM P-R Int : 170 ms QRS Dur : 090 ms QT Int : 372 ms P-R-T Axes : 034 -06 008 degrees QTc Int : 487 ms Poor data quality, interpretation may be adversely affected Sinus tachycardia Otherwise normal ECG When compared with ECG of 06-DEC-2022 11:33, Criteria for Inferior infarct are no longer Present Confirmed by Vinny Gan ([id number]) on 12/27/2022 8:27:57 AM Referred By: REFERRED SELF Confirmed By:Vinny Gan
[2022-12-27] MEDS: CEROVITE ADV FORMULA TAB PO SCH (08:38)
[2022-12-27] MEDS: allopurinoL 300 MG TAB PO SCH (08:38)
[2022-12-27] MEDS: AMIODARONE 200 MG TAB PO SCH (08:38)
[2022-12-27] MEDS: MEGESTROL ACETATE 40 MG TAB PO SCH (08:38)
[2022-12-27] MEDS: PANTOprazole 40 MG TAB PO SCH (08:39)
[2022-12-27] MEDS: HYDROCODONE/ACETAMINOPHEN 7.5/325MG TAB PO SCH ×5 (08:39→23:47)
[2022-12-27] MEDS: ATORVASTATIN 40 MG TAB PO SCH (08:39)
[2022-12-27] MEDS: CYCLOBENZAPRINE HCL 10 MG TAB PO SCH ×2 (08:45→21:15)
[2022-12-27] MEDS: DOXYCYCLINE HYCLATE 100 MG in DEXTROSE 5% 100 ML IV SCH ×2 (12:27→21:21)
[2022-12-27] MEDS: METOPROLOL TARTRATE 50 MG TAB PO SCH ×2 (12:27→21:16)
[2022-12-27] MEDS: cefTRIAXone SODIUM 2,000 MG in DEXTROSE 5% 50 ML IV SCH (21:21)
[2022-12-28] MEDS ORDERED: oxyCODONE HCL IR 5 MG TAB (IMMEDIATE RELEASE) PO STA (05:20)
[2022-12-28 06:37] LABS: BUN Creatinine Ratio 15.7 (10-20); Calcium 9.1 mg/dl (8.6-10.3); Creatinine Clr Calc Pharmacy 47.3 ml/min; Est GFR (African American) 78.5 ml/min; Est GFR (Non-African American) 67.7 ml/min; Potassium 3.4 mmol/L (3.5-5.1)
[2022-12-28 06:38] LABS: Hematocrit (blood only) 28.9 % (42.0-52.0); Hemoglobin 9.1 g/dl (14.0-18.0); Mean Corpuscular Hemoglobin 26.6 pg (25.0-34.0); Mean Corpuscular Hgb Conc 31.5 g/dL (32.0-36.0); Mean Corpuscular Volume 84.5 fL (80.0-100.0); Platelet Count 32 K/uL (130-400); RDW Coefficient of Variation 24.3 % (11.5-14.5); RDW Standard Deviation 72.7 fL (36.4-46.3); Red Blood Count 3.42 M/uL (4.70-6.10); White Blood Count 8.58 K/ul (4.8-10.8)
[2022-12-28] MEDS ORDERED: POTASSIUM CHLORIDE CRTAB 20 MEQ TABCR PO STA (08:47)
[2022-12-28] MEDS ORDERED: HYDROCODONE/ACETAMOPHEN 5/325MG TAB PO SCH (09:00)
[2022-12-28] MEDS: ATORVASTATIN 40 MG TAB PO SCH (09:14)
[2022-12-28] MEDS: CEROVITE ADV FORMULA TAB PO SCH (09:14)
[2022-12-28] MEDS: allopurinoL 300 MG TAB PO SCH (09:14)
[2022-12-28] MEDS: PANTOprazole 40 MG TAB PO SCH (09:14)
[2022-12-28] MEDS: AMIODARONE 200 MG TAB PO SCH (09:14)
[2022-12-28] MEDS: MEGESTROL ACETATE 40 MG TAB PO SCH (09:15)
[2022-12-28] MEDS: CYCLOBENZAPRINE HCL 10 MG TAB PO SCH (09:15)
[2022-12-28] MEDS: METOPROLOL TARTRATE 50 MG TAB PO SCH ×2 (09:15→22:00)
--- NOTE | 2022-12-28 09:35 | Hospitalist Progress Note ---
Date of Service December 28, 2022 Assessment & Plan (1) Acute metabolic encephalopathy: (2) Pneumonia: (3) Weakness: (4) HTN (hypertension): (5) Tachy-boris syndrome: (6) Thrombocytopenia: (7) B-cell lymphoma: (8) COPD (chronic obstructive pulmonary disease): (9) CMML (chronic myelomonocytic leukemia): (10) Chronic ischemic heart disease: (11) Paroxysmal atrial fibrillation: Plan This is a 72yo M with a complex PMH of 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 Acute delirium resolved- was Likely multifactorial in setting of infection, likely opioid wi thdrawal Has been taking hydrocodone TID for cancer related pain but likely overmedicated Working on decreasing pain medications-changed scheduled Flexeril to PRN to avoid polypharmacy CT head, CTA head/neck without acute findings No evidence of stroke Hypoxia RLL pneumonia, previously noted on imaging Resolved--Was recent admitted to our service earlier in November with e/o RLL pna and was treated with Rocephin and then discharged on Augmentin (total 5 day course) CXR today with Right lower lung airspace opacity compatible with pneumonia- likely residual, definitely improved and doesn't appear to be contributing to his hypoxia. Hypoxia more likely related to overmedication with narcotics. Rocephin/doxy started, cont aspiration precautions, cont short course Au gmentin/Doxy at discharge for total 7 days treatment to ensure complete clearance of any infection prior to starting chemotherapy. Paroxysmal A fib Diagnosed during admission last month Not a candidate for aspirin or anticoagulation with history of thrombocytopenia Cont metoprolol and amiodarone per home regimen. Diffuse B Cell Lymphoma of head/neck:s/p 1 cycle of RCEOP (11/18/22 - 11/21/22) Chronic myelomonocytic leukemia: Chronic Thrombocytopenia: Transfusion reaction/to platelets transfusion: Following with Dr. Rojas - chemo on hold for now, picc was removed recently Soft tissue neck CT with necrotic lymph nodes are further decreased in size from prior exam Continue allopurinol for tumor lysis syndrome prophylaxis Planned chemotherapy as outpatient as soon as possible. Chronic thrombocytopenia, h/o ITP Plts are in the 30s, no indication for transfusion at this time. Needs ch emotherapy which improved his platelets for the past 3 weeks. Severe protein calorie malnutrition:Significant weight loss > 30 pounds since 08/17.Continue Megace; per this was never started post discharge. reports boiler control technician already saw his last visit and recommended Boost which he won't drink. She has some supplements that she may bring in from home which will be fine. Will also address his throat discomfort with a compounded Maalox/nystatin/lidocaine magic mouthwash pharmacy is making for him. Mouth is dry, biotene spray at bedside. Frequent falls:Recent R hip fx s/p IM nail by Dr. Null 10/27/22. Pt/ot; Fall precaution.outpatient followup with ortho was scheduled for this week. will reschedule PAD: c/w statin. ABIs done on 03/17 showed R 0.87 and L 0.85 at rest concerning for occlusive disease to b/l SFA and tibial artery along with L iliac disease. Arterial Doppler:Moderate atherosclerotic plaque within the bilateral lower extremities. Suspected occlusion of the distal left posterior tibial artery, otherwise patent vessels. Monophasic flow within the bilateral calf vessels Heel wounds-POA, wound care nurse consulted. Supportive care. Waffle boots. Narcotics are being given for pain here. H/o Dysphagia Video swallow:few episodes of trace silent aspiration with the thin liquid barium only.= Aspiration precautions Appreciate speech therapy recommendations Continue minced and moist, easy to chew diet with thin liquids Magic mouthwash as above. Avoid foods that are dry. SSS S/P PPM in 2019 COPD: c/w home inhalers. no signs of exacerbation Goals of care; counseling/discussion:noted prior attending's/team d/w pt on 11/26. Appreciate pall care recs ---> pt can have both hospice level nursing support and chemo under his [facility] benefit but patient and not interested in pursuing hospice at this time Disposition PCP: Dr. Bradshaw Code Status: DNR/DNI VTE Prophylaxis: SCDs, avoid chemical vte ppx given thrombocytopenia Dispo: admitted to PCU I spent a total of 80 minutes coordinating, documenting, and providing care for this patient excluding time spent in the performance of separately billed services. DO Hilda Guy Hospitalist Admission and Anticipated Discharge Date Admission Date: December 26, 2022 Subjective 72 yo M presented with delirium and hypoxia Initially reporting that pain is well controlled Later mentioned that his throat is sore On exam he has dry scabbed material in posterior throat and dry tongue/mucous membranes Off oxygen overnight Discussed outpatient care plan wtih his oncologist. Relayed all of this with at bedside and patient today. Discussed pros and cons for taking him home vs SNF with and case filler. Review of Systems Review of Systems: All systems reviewed and negative except as indicated above. Physical Exam Physical Exam: CONSTITUTIONAL: thin, vitals as above, NAD EYES: normal conjunctivae, no scleral icterus ENT: external ear and nose normal, MMM NECK: trachea midline RESPIRATORY: clear to auscultation bilaterally, no crackles, rales or wheezes, normal respiratory effort CARDIOVASCULAR: regular rate and rhythm, S1 and 2 heard without murmurs, gallops or rubs, no JVD, no peripheral edema CHEST: inspection of chest was normal GASTROINTESTINAL: soft, nontender, ND, no guarding MUSCULOSKELETAL: strength 5/5 throughout, head is normocephalic and atraumatic, neck supple, normal palpation of chest wall without tenderness SKIN: warm and dry, unstageable heel ulcers bilaterally NEUROLOGIC: CN 2-12 grossly intact, no sensory deficit, normal cognition, difficulty articulating at baseline, no tremor PSYCHIATRIC: alert cooperative and oriented to person, place and time. Euthymic mood, makes good eye contact, language grossly intact, recent and remote memory grossly intact. Results & Data Results & Data Vital Signs (Past 12 Hours) Vital Signs Temp Pulse Resp BP Pulse Ox O2 Del Method 12/28/22 08:02 36.8 C 93 H 20 144/79 H 92 Room Air 12/28/22 03:15 36.7 C 74 18 109/67 92 Room Air 12/27/22 22:00 36.9 C 88 21 106/69 93 Room Air Laboratory Results Short CBC 12/28/22 Range/Units 05:47 WBC 8.58 (4.8-10.8) K/ul Hgb 9.1 L (14.0-18.0) g/dl Hct 28.9 L (42.0-52.0) % Plt Count 32 L (130-400) K/uL [facility] 12/28/22 05:47 Sodium 136 Potassium 3.4 L Chloride 106 Carbon Dioxide 19 L BUN 17 Creatinine 1.08 Glucose 90 Calcium 9.1 Medications Administered Current Inpatient Medications Acetaminophen (Acetaminophen 325 Mg Tab) 650 mg PO Q4H PRN PRN Reason: Pain or Fever Stop: 01/25/23 20:32 Hydrocodone Bitart/Acetaminophen (Hydrocodone/Acetamophen 5/325mg Tab) 1 tab PO BID [facility] Stop: 01/11/23 08:59 Last Admin: 12/28/22 09:15 Dose: 1 tab Albuterol (Albuterol Hfa 8 Gm Inhaler) 1 puffs INH QID PRN PRN Reason: sob Stop: 01/25/23 19:41 Allopurinol (Allopurinol 300 Mg Tab) 300 mg PO QAM [facility] Stop: 01/26/23 08:59 Last Admin: 12/28/22 09:14 Dose: 300 mg Amiodarone HCl (Amiodarone 200 Mg Tab) 200 mg PO DAILY [facility] Stop: 01/26/23 08:59 Last Admin: 12/28/22 09:14 Dose: 200 mg Atorvastatin Calcium (Atorvastatin 40 Mg Tab) 40 mg PO QAM [facility] Stop: 01/26/23 08:59 Last Admin: 12/28/22 09:14 Dose: 40 mg Carbamide Peroxide (Carbamide Peroxide 6.5% 15 Ml Btl) 5 drops OTR BID PRN PRN Reason: earwax Stop: 12/30/22 19:41 Cyclobenzaprine HCl (Cyclobenzaprine Hcl 10 Mg Tab) 10 mg PO BID [facility] Stop: 01/25/23 20:59 Last Admin: 12/28/22 09:15 Dose: 10 mg Ceftriaxone Sodium 2,000 mg/ (Dextrose) 70 mls @ 100 mls/hr IV Q24H [facility]; Protocol Stop: 01/01/23 21:41 Last Infusion: 12/27/22 23:07 Dose: Infused Doxycycline Hyclate 100 mg/ (Dextrose) 110 mls @ 50 mls/hr IV Q12H [facility] Stop: 01/02/23 21:59 Last Infusion: 12/27/22 23:43 Dose: Infused Megestrol Acetate (Megestrol Acetate 40 Mg Tab) [facility] [place]: 01/26/23 08:59 Last Admin: 12/28/22 09:15 Dose: 40 mg Metoprolol Tartrate (Metoprolol Tartrate 50 Mg Tab) 50 mg PO BID [facility] Stop: 01/26/23 08:59 Last Admin: 12/28/22 09:15 Dose: 50 mg Multivitamins/Minerals (Cerovite Adv Formula Tab) 1 tab PO QAM [facility] Stop: 01/26/23 08:59 Last Admin: 12/28/22 09:14 Dose: 1 tab Ondansetron HCl (Ondansetron Inj 2 Mg/Ml 2 Ml Vial) 4 mg IV Q6H PRN PRN Reason: Nausea Stop: 01/25/23 20:32 Pantoprazole Sodium (Pantoprazole 40 Mg Tab) 40 mg PO QAM [facility] Stop: 01/26/23 08:59 Last Admin: 12/28/22 09:14 Dose: 40 mg Polyethylene Glycol (Polyethylene (Miralax) 17 Gm Pack) 17 gm PO DAILY PRN PRN Reason: Constipation Stop: 01/25/23 20:32
[2022-12-28] MEDS: DOXYCYCLINE HYCLATE 100 MG in DEXTROSE 5% 100 ML IV SCH (11:25)
[2022-12-28] MEDS ORDERED: CYCLOBENZAPRINE HCL 10 MG TAB PO PRN (11:37)
[2022-12-28] MEDS: MAGNESIUM PO SCH ×3 (14:58→21:59)
[2022-12-28] MEDS: [UNRECOGNIZED DRUG - OTHER] PO SCH ×3 (14:58→21:59)
[2022-12-28] MEDS: LIDOCAINE VISCOUS PO SCH ×3 (14:58→21:59)
[2022-12-28] MEDS: NYSTATIN PO SCH ×3 (14:58→21:59)
[2022-12-28] MEDS: ALUMINUM PO SCH ×3 (14:58→21:59)
[2022-12-28] MEDS: AMOXICILLIN/CLAVULANATE 875 MG TAB PO SCH (16:40)
[2022-12-28] MEDS ORDERED: HYDROCODONE/ACETAMOPHEN 5/325MG TAB PO STA (17:38)
[2022-12-28] MEDS: HYDROCODONE/ACETAMOPHEN 5/325MG TAB PO SCH (21:59)
[2022-12-28] MEDS: DOXYCYCLINE HYCLATE 100 MG CAP PO SCH (22:00)
[2022-12-29] MEDS: ACETAMINOPHEN 325 MG TAB PO PRN ×3 (03:19→15:12)
[2022-12-29] MEDS: HYDROCODONE/ACETAMOPHEN 5/325MG TAB PO SCH ×2 (05:25→20:21)
[2022-12-29] MEDS: PANTOprazole 40 MG TAB PO SCH (08:20)
[2022-12-29] MEDS: METOPROLOL TARTRATE 50 MG TAB PO SCH ×2 (08:20→20:21)
[2022-12-29] MEDS: DOXYCYCLINE HYCLATE 100 MG CAP PO SCH ×2 (08:20→20:21)
[2022-12-29] MEDS: allopurinoL 300 MG TAB PO SCH (08:21)
[2022-12-29] MEDS: ATORVASTATIN 40 MG TAB PO SCH (08:21)
[2022-12-29] MEDS: AMIODARONE 200 MG TAB PO SCH (08:21)
[2022-12-29] MEDS: AMOXICILLIN/CLAVULANATE 875 MG TAB PO SCH ×2 (08:22→16:52)
[2022-12-29] MEDS: CEROVITE ADV FORMULA TAB PO SCH (08:22)
[2022-12-29] MEDS: MEGESTROL ACETATE 40 MG TAB PO SCH (08:22)
[2022-12-29] MEDS: NYSTATIN PO SCH ×4 (09:26→20:22)
[2022-12-29] MEDS: LIDOCAINE VISCOUS PO SCH ×4 (09:26→20:22)
[2022-12-29] MEDS: [UNRECOGNIZED DRUG - OTHER] PO SCH ×4 (09:26→20:22)
[2022-12-29] MEDS: ALUMINUM PO SCH ×4 (09:26→20:22)
[2022-12-29] MEDS: MAGNESIUM PO SCH ×4 (09:26→20:22)
[2022-12-29] MEDS ORDERED: POTASSIUM CHLORIDE CRTAB 20 MEQ TABCR PO STA (17:05)
--- NOTE | 2022-12-29 17:17 | Hospitalist Progress Note ---
Date of Service December 29, 2022 Assessment & Plan (1) Acute metabolic encephalopathy: (2) Pneumonia: (3) Weakness: (4) HTN (hypertension): (5) Tachy-boris syndrome: (6) Thrombocytopenia: (7) B-cell lymphoma: (8) COPD (chronic obstructive pulmonary disease): (9) CMML (chronic myelomonocytic leukemia): (10) Chronic ischemic heart disease: (11) Paroxysmal atrial fibrillation: Plan This is a 72yo M with a complex PMH of 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 He is being managed for the following: Acute delirium: CT head, CTA head/neck without acute findings . No evidence of stroke. Metation resolved- was Likely multifactorial in setting of overmedication w/ opioid at home, likely infection. Working on decreasing pain medications-changed scheduled Flexeril to PRN to avoid polypharmacy Hypoxia RLL pneumonia, previously noted on imaging Resolved--Was recent admitted to our service earlier in November with e/o RLL pna and was treated. CXR at admission with Right lower lung airspace opacity compatible with pneumonia-likely residual, definitely improved and doesn't appear to be contributing to his hypoxia. Hypoxia more likely related to overmedication with narcotics. Rocephin/doxy started, cont aspiration precautions, cont short course Augmentin/Doxy at discharge for total 7 days treatment to ensure complete alexander gera of any infection prior to starting chemotherapy. Paroxysmal A fib Diagnosed during admission last month Not a candidate for aspirin or anticoagulation with history of thrombocytopenia Cont metoprolol and amiodarone per home regimen. Diffuse B Cell Lymphoma of head/neck:s/p 1 cycle of RCEOP (11/18/22 - 11/21/22) Chronic myelomonocytic leukemia: Chronic Thrombocytopenia: Transfusion reaction/to platelets transfusion: Following with Dr. Rojas - chemo on hold for now, picc was removed recently Soft tissue neck CT with necrotic lymph nodes are further decreased in size from prior exam Continue allopurinol for tumor lysis syndrome prophylaxis Planned chemotherapy as outpatient as soon as possible. Chronic thrombocytopenia, h/o ITP : Plts are in the 30s, no indication for transfusion at this time. Needs chemotherapy which improved his platelets for the past 3 weeks. Severe protein calorie malnutrition:Significant weight loss > 30 pounds since 08/17.Continue Megace; was discharged on megace during last admission. reports crane operator already saw his last visit and recommended Boost which he won't drink. She has some supplements that she may bring in from home which will be fine. Will also address his throat discomfort with a compounded Maalox/nystatin/lidocaine magic mouthwash pharmacy is making for him. Mouth is dry, biotene spray at bedside. Frequent falls:Recent R hip fx s/p IM nail by Dr. Null 10/27/22. Pt/ot; Fall precaution.outpatient followup with ortho was scheduled for last week. to reschedule PAD: c/w statin. ABIs done on 03/17 showed R 0.87 and L 0.85 at rest concerning for occlusive disease to b/l SFA and tibial artery along with L iliac disease. Arterial Doppler:Moderate atherosclerotic plaque within the bilateral lower extremities. Suspected occlusion of the distal left posterior tibial artery, otherwise patent vessels. Monophasic flow within the bilateral calf vessels Heel wounds-POA, wound care nurse consulted. Supportive care. Waffle boots. Narcotics are being given for pain here. H/o Dysphagia Video swallow:few episodes of trace silent aspiration with the thin liquid barium only.= Aspiration precautions Appreciate speech therapy recommendations Continue minced and moist, easy to chew diet with thin liquids Magic mouthwash as above. Avoid foods that are dry. SSS S/P PPM in 2019 COPD: c/w home inhalers. no signs of exacerbation Goals of care; counseling/discussion:noted prior attending's/team d/w pt on 11/26. Appreciate pall care recs ---> pt can have both hospice level nursing support and chemo under his [facility] benefit but patient and not interested in pursuing hospice at this time Disposition PCP: Dr. Bradshaw Code Status: DNR/DNI VTE Prophylaxis: SCDs, avoid chemical vte ppx given thrombocytopenia Dispo: awaiting placement. Admission and Anticipated Discharge Date Admission Date: December 26, 2022 Subjective Patient seen and examined at bedside as a follow-up of acute metabolic encephalopathy, likely pneumonia and weakness. Patient was lying in bed, on room air, NAD, reports no new acute event overnight, per at bedside patient has fairly better appetite than prior, patient denies any headache or dizziness or chest pain or belly pain or any other review of symptoms. Physical Exam Physical Exam: GENERAL: alert and awake, NAD, on RA. Thin/frail/weak appearing. HEENT: No pallor, no icterus. Pupils equal, round and reactive to light. Oral mucosa moist. NECK: No JVD, no neck masses. HEART: S1 and S2 heard. regular rate and rhythm. No murmur, no gallop. RESPIRATORY SYSTEM: Normal AP diameter. No accessory muscle use. No wheezing, no crackles. ABDOMEN: Soft, bowel sounds present, nontender, no distention. CENTRAL NERVOUS SYSTEM: No facial droop. Speech is clear. Obeys simple commands. Moves extremities. EXTREMITIES: No edema, no erythema seen. Results & Data Results & Data Vital Signs (Past 12 Hours) Vital Signs Temp Pulse Pulse Resp BP Pulse Ox O2 Del Method 12/29/22 15:00 36.7 C 87 16 122/64 93 Room Air 12/29/22 07:20 Room Air 12/29/22 07:36 36.6 C 86 86 16 120/72 95 Room Air
[2022-12-29] MEDS ORDERED: Nursing to Pharmacy Communication SCH (18:15)
[2022-12-29] MEDS ORDERED: HYDROCODONE/ACETAMOPHEN 5/325MG TAB PO ONE (18:15)
[2022-12-30] MEDS: ACETAMINOPHEN 325 MG TAB PO PRN ×2 (03:41→09:12)
[2022-12-30] MEDS: HYDROCODONE/ACETAMOPHEN 5/325MG TAB PO SCH ×2 (05:06→19:26)
[2022-12-30 07:17] LABS: BUN Creatinine Ratio 20.5 (10-20); Calcium 8.9 mg/dl (8.6-10.3); Creatinine Clr Calc Pharmacy 45.6 ml/min; Est GFR (African American) 75.1 ml/min; Est GFR (Non-African American) 64.8 ml/min; Magnesium 1.9 mg/dl (1.7-2.4); Phosphorus 3.7 mg/dl (2.5-4.9); Potassium 3.9 mmol/L (3.5-5.1)
[2022-12-30] MEDS: allopurinoL 300 MG TAB PO SCH (09:06)
[2022-12-30] MEDS: AMIODARONE 200 MG TAB PO SCH (09:06)
[2022-12-30] MEDS: AMOXICILLIN/CLAVULANATE 875 MG TAB PO SCH ×2 (09:06→17:14)
[2022-12-30] MEDS: ALUMINUM PO SCH ×4 (09:07→21:32)
[2022-12-30] MEDS: [UNRECOGNIZED DRUG - OTHER] PO SCH ×4 (09:07→21:32)
[2022-12-30] MEDS: NYSTATIN PO SCH ×4 (09:07→21:32)
[2022-12-30] MEDS: PANTOprazole 40 MG TAB PO SCH (09:07)
[2022-12-30] MEDS: CEROVITE ADV FORMULA TAB PO SCH (09:07)
[2022-12-30] MEDS: DOXYCYCLINE HYCLATE 100 MG CAP PO SCH ×2 (09:07→19:30)
[2022-12-30] MEDS: MEGESTROL ACETATE 40 MG TAB PO SCH (09:07)
[2022-12-30] MEDS: METOPROLOL TARTRATE 50 MG TAB PO SCH ×2 (09:07→19:30)
[2022-12-30] MEDS: LIDOCAINE VISCOUS PO SCH ×4 (09:07→21:32)
[2022-12-30] MEDS: MAGNESIUM PO SCH ×4 (09:07→21:32)
[2022-12-30] MEDS: ATORVASTATIN 40 MG TAB PO SCH (09:07)
--- NOTE | 2022-12-30 17:26 | Hospitalist Progress Note ---
Date of Service December 30, 2022 Assessment & Plan (1) Acute metabolic encephalopathy: (2) Pneumonia: (3) Weakness: (4) HTN (hypertension): (5) Tachy-boris syndrome: (6) Thrombocytopenia: (7) B-cell lymphoma: (8) COPD (chronic obstructive pulmonary disease): (9) CMML (chronic myelomonocytic leukemia): (10) Chronic ischemic heart disease: (11) Paroxysmal atrial fibrillation: Plan This is a 72yo M with a complex PMH of 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 He is being managed for the following: Acute delirium: CT head, CTA head/neck without acute findings . No evidence of stroke. Metation resolved- was Likely multifactorial in setting of overmedication w/ opioid at home, likely infection. Working on decreasing pain medications-changed scheduled Flexeril to PRN to avoid polypharmacy Hypoxia RLL pneumonia, previously noted on imaging Resolved--Was recent admitted to our service earlier in November with e/o RLL pna and was treated. CXR at admission with Right lower lung airspace opacity compatible with pneumonia-likely residual, definitely improved and doesn't appear to be contributing to his hypoxia. Hypoxia more likely related to overmedication with narcotics. Rocephin/doxy started, cont aspiration precautions, cont short course Augmentin/Doxy at discharge for total 7 days treatment to ensure complete alexander gera of any infection prior to starting chemotherapy. Paroxysmal A fib Diagnosed during admission last month Not a candidate for aspirin or anticoagulation with history of thrombocytopenia Cont metoprolol and amiodarone per home regimen. Diffuse B Cell Lymphoma of head/neck:s/p 1 cycle of RCEOP (11/18/22 - 11/21/22) Chronic myelomonocytic leukemia: Chronic Thrombocytopenia: Transfusion reaction/to platelets transfusion: Following with Dr. Rojas - chemo on hold for now, picc was removed recently Soft tissue neck CT with necrotic lymph nodes are further decreased in size from prior exam Continue allopurinol for tumor lysis syndrome prophylaxis Planned chemotherapy as outpatient as soon as possible. Chronic thrombocytopenia, h/o ITP : Plts are in the 30s, no indication for transfusion at this time. Needs chemotherapy which improved his platelets for the past 3 weeks. Severe protein calorie malnutrition:Significant weight loss > 30 pounds since 08/17.Continue Megace; was discharged on megace during last admission. reports teletype installer already saw his last visit and recommended Boost which he won't drink. She has some supplements that she may bring in from home which will be fine. Will also address his throat discomfort with a compounded Maalox/nystatin/lidocaine magic mouthwash pharmacy is making for him. Mouth is dry, biotene spray at bedside. Frequent falls:Recent R hip fx s/p IM nail by Dr. Null 10/27/22. Pt/ot; Fall precaution.outpatient followup with ortho was scheduled for last week. to reschedule PAD: c/w statin. ABIs done on 03/17 showed R 0.87 and L 0.85 at rest concerning for occlusive disease to b/l SFA and tibial artery along with L iliac disease. Arterial Doppler:Moderate atherosclerotic plaque within the bilateral lower extremities. Suspected occlusion of the distal left posterior tibial artery, otherwise patent vessels. Monophasic flow within the bilateral calf vessels Heel wounds-POA, wound care nurse consulted. Supportive care. Waffle boots. Narcotics are being given for pain here. H/o Dysphagia Video swallow:few episodes of trace silent aspiration with the thin liquid barium only.= Aspiration precautions Appreciate speech therapy recommendations Continue minced and moist, easy to chew diet with thin liquids Magic mouthwash as above. Avoid foods that are dry. SSS S/P PPM in 2019 COPD: c/w home inhalers. no signs of exacerbation Goals of care; counseling/discussion:noted prior attending's/team d/w pt on 11/26. Appreciate pall care recs ---> pt can have both hospice level nursing support and chemo under his [facility] benefit but patient and not interested in pursuing hospice at this time Disposition PCP: Dr. Bradshaw Code Status: DNR/DNI VTE Prophylaxis: SCDs, avoid chemical vte ppx given thrombocytopenia Dispo: awaiting placement. Admission and Anticipated Discharge Date Admission Date: December 26, 2022 Subjective Patient seen and examined at bedside as a follow-up of acute metabolic encephalopathy, likely pneumonia and weakness. Patient was lying in bed, on room air, NAD, reports no new acute event overnight, per at bedside patient has fairly better appetite than prior, patient denies any headache or dizziness or chest pain or belly pain or any other review of symptoms. Physical Exam Physical Exam: GENERAL: alert and awake, NAD, on RA. Thin/frail/weak appearing. HEENT: No pallor, no icterus. Pupils equal, round and reactive to light. Oral mucosa moist. NECK: No JVD, no neck masses. HEART: S1 and S2 heard. regular rate and rhythm. No murmur, no gallop. RESPIRATORY SYSTEM: Normal AP diameter. No accessory muscle use. No wheezing, no crackles. ABDOMEN: Soft, bowel sounds present, nontender, no distention. CENTRAL NERVOUS SYSTEM: No facial droop. Speech is clear. Obeys simple commands. Moves extremities. EXTREMITIES: No edema, no erythema seen. Results & Data Results & Data Vital Signs (Past 12 Hours) Vital Signs Temp Pulse Pulse Resp BP Pulse Ox O2 Del Method 12/30/22 16:09 36.8 C 89 18 105/63 93 Room Air 12/30/22 09:51 Room Air 12/30/22 07:30 36.4 C L 83 16 127/75 91 Room Air
[2022-12-31] MEDS: ACETAMINOPHEN 325 MG TAB PO PRN (02:22)
[2022-12-31] MEDS: HYDROCODONE/ACETAMOPHEN 5/325MG TAB PO SCH ×2 (05:02→19:54)
[2022-12-31] MEDS: AMOXICILLIN/CLAVULANATE 875 MG TAB PO SCH ×2 (08:00→16:32)
[2022-12-31] MEDS: METOPROLOL TARTRATE 50 MG TAB PO SCH ×2 (08:48→19:55)
[2022-12-31] MEDS: ATORVASTATIN 40 MG TAB PO SCH (08:48)
[2022-12-31] MEDS: DOXYCYCLINE HYCLATE 100 MG CAP PO SCH ×2 (08:49→19:55)
[2022-12-31] MEDS: allopurinoL 300 MG TAB PO SCH (08:49)
[2022-12-31] MEDS: AMIODARONE 200 MG TAB PO SCH (08:49)
[2022-12-31] MEDS: CEROVITE ADV FORMULA TAB PO SCH (08:49)
[2022-12-31] MEDS: PANTOprazole 40 MG TAB PO SCH (08:49)
[2022-12-31] MEDS: [UNRECOGNIZED DRUG - OTHER] PO SCH ×4 (08:52→19:55)
[2022-12-31] MEDS: LIDOCAINE VISCOUS PO SCH ×4 (08:52→19:55)
[2022-12-31] MEDS: MAGNESIUM PO SCH ×4 (08:52→19:55)
[2022-12-31] MEDS: NYSTATIN PO SCH ×4 (08:52→19:55)
[2022-12-31] MEDS: ALUMINUM PO SCH ×4 (08:52→19:55)
[2022-12-31] MEDS: MEGESTROL ACETATE 40 MG TAB PO SCH (08:53)
[2022-12-31] MEDS: HYDROCODONE/ACETAMOPHEN 5/325MG TAB PO PRN (12:23)
--- NOTE | 2022-12-31 15:12 | Hospitalist Progress Note ---
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 He is being managed for the following: Acute delirium: Likely secondary to excessive opioid use/polypharmacy -CT head, CTA head/neck without acute findings. Scheduled Flexeril changed to as needed Minimize narcotics as able Mentation back to baseline Hypoxia RLL pneumonia, previously noted on imaging --CT Chest:Underlying emphysema, more significant in the lung apices. Mild right-sided pleural effusion with right lower lobe atelectasis versus residual infiltrate. Focal interstitial changes versus residual pneumonitis in the left lower lobe. No pneumothorax. Hypoxia likely multifactorial-pneumonia, overmedication with narcotics --Currently on Augmentin, doxycycline--will complete 7-day course Weaned off of supplemental oxygen Saturating well on room air Paroxysmal A fib Not a candidate Anticoagulation with significant thrombocytopenia/Bleeding risk/Recurrent falls Continue metoprolol, amiodarone Diffuse B Cell Lymphoma of head/neck:s/p 1 cycle of RCEOP (11/18/22 - 11/21/22) Chronic myelomonocytic leukemia Chronic Thrombocytopenia Transfusion reaction to platelets transfusion: Following with Dr. Rojas - randolph on hold for now Soft tissue neck CT with necrotic lymph nodes are further decreased in size from prior exam Continue allopurinol for tumor lysis syndrome prophylaxis Planned chemotherapy as outpatient as soon as possible. Needs follow-up with oncology upon discharge Chronic thrombocytopenia H/O ITP No acute bleeding issues Monitor platelets Severe protein calorie malnutrition:Significant weight loss > 30 pounds since 08/17. Continue Megace Poor oral intake BMI 18 Encouraged to increase oral intake Frequent falls: Recent R hip fx s/p IM nail by Dr. Null 10/27/22 Fall precautions Continue PT OT Needs placement Advised to schedule for outpatient orthopedics follow-up upon discharge PAD: ABIs done on 03/17 showed R 0.87 and L 0.85 at rest concerning for occlusive disease to b/l SFA and tibial artery along with L iliac disease. Arterial Doppler:Moderate atherosclerotic plaque within the bilateral lower extremities. Suspected occlusion of the distal left posterior tibial artery, otherwise patent vessels. Monophasic flow within the bilateral calf vessels Continue statin Heel wounds-POA wound care nurse consulted Supportive care Waffle boots. H/o Dysphagia Video swallow:few episodes of trace silent aspiration with the thin liquid barium only.= Aspiration precautions Appreciate speech therapy recommendations Continue minced and moist, easy to chew diet with thin liquids Magic mouthwash as needed SSS S/P PPM in 2019 COPD: c/w home inhalers. no signs of exacerbation As per prior provider Goals of care; counseling/discussion:noted prior attending's/team d/w pt on 11/26. Appreciate pall care recs ---> pt can have both hospice level nursing support and chemo under his [facility] benefit but patient and not interested in pursuing hospice at this time DVT Px: SCDs Re: Thrombocytopenia Code Status: DNR/DNI Disposition Needs placement Admission and Anticipated Discharge Date Admission Date: December 26, 2022 Subjective Patient is seen and examined at bedside States having right-sided chest pain intermittently within started after having a big sneeze overnight No significant cough Poor appetite Denies any dyspnea, dizziness, nausea, vomiting, abdominal pain Family at bedside No other complaints Review of Systems Review of Systems: All systems reviewed & are unremarkable except as noted in Subjective Physical Exam Physical Exam: Physical Exam: Vitals signs as noted above General Appearance:Thin, Frail, Chronic ill appearing, no apparent distress Head: normocephalic, Atraumatic Eyes: normal inspection, EOMI Neck: supple, Trachea midline Respiratory/Chest: Decreased breath sounds, CTA, No accessory muscle use Cardiovascular: S1, S2, No murmur Abdomen/GI:Soft, Non tender, Bowel sounds present Extremities/Musculoskeletal:normal inspection, no edema, +Heel ulcers bilaterally Neurologic/Psych:AAOX3, grossly no focal neurological deficits Skin: normal color, warm Results & Data Results & Data Vital Signs (Past 12 Hours) Vital Signs Temp Pulse Resp BP Pulse Ox O2 Del Method 12/31/22 07:45 Room Air 12/31/22 07:35 36.8 C 67 16 114/75 95 Room Air
[2023-01-01] MEDS: HYDROCODONE/ACETAMOPHEN 5/325MG TAB PO SCH ×2 (04:36→20:03)
[2023-01-01 06:40] LABS: BUN Creatinine Ratio 25.2 (10-20); Calcium 8.6 mg/dl (8.6-10.3); Creatinine Clr Calc Pharmacy 44.4 ml/min; Est GFR (African American) 72.8 ml/min; Est GFR (Non-African American) 62.8 ml/min; Potassium 3.8 mmol/L (3.5-5.1)
[2023-01-01 06:52] LABS: Hematocrit (blood only) 28.5 % (42.0-52.0); Hemoglobin 9.1 g/dl (14.0-18.0); Mean Corpuscular Hemoglobin 26.9 pg (25.0-34.0); Mean Corpuscular Hgb Conc 31.9 g/dL (32.0-36.0); Mean Corpuscular Volume 84.3 fL (80.0-100.0); Platelet Count 24 K/uL (130-400); Platelet Estimate Signific. Decreased (Normal); RDW Coefficient of Variation 25.5 % (11.5-14.5); RDW Standard Deviation 78.2 fL (36.4-46.3); Red Blood Count 3.38 M/uL (4.70-6.10); White Blood Count 17.06 K/ul (4.8-10.8)
[2023-01-01] MEDS: MEGESTROL ACETATE 40 MG TAB PO SCH (09:52)
[2023-01-01] MEDS: AMIODARONE 200 MG TAB PO SCH (09:52)
[2023-01-01] MEDS: AMOXICILLIN/CLAVULANATE 875 MG TAB PO SCH ×2 (09:52→17:23)
[2023-01-01] MEDS: CEROVITE ADV FORMULA TAB PO SCH (09:52)
[2023-01-01] MEDS: METOPROLOL TARTRATE 50 MG TAB PO SCH ×2 (09:52→21:18)
[2023-01-01] MEDS: PANTOprazole 40 MG TAB PO SCH (09:52)
[2023-01-01] MEDS: DOXYCYCLINE HYCLATE 100 MG CAP PO SCH ×2 (09:52→21:18)
[2023-01-01] MEDS: ATORVASTATIN 40 MG TAB PO SCH (09:52)
[2023-01-01] MEDS: allopurinoL 300 MG TAB PO SCH (09:52)
[2023-01-01] MEDS: [UNRECOGNIZED DRUG - OTHER] PO SCH ×4 (09:53→21:18)
[2023-01-01] MEDS: MAGNESIUM PO SCH ×4 (09:53→21:18)
[2023-01-01] MEDS: LIDOCAINE VISCOUS PO SCH ×4 (09:53→21:18)
[2023-01-01] MEDS: ALUMINUM PO SCH ×4 (09:53→21:18)
[2023-01-01] MEDS: NYSTATIN PO SCH ×4 (09:53→21:18)
--- NOTE | 2023-01-01 10:53 | Hospitalist Progress Note ---
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 He is being managed for the following: Acute delirium: Likely secondary to excessive opioid use/polypharmacy -CT head, CTA head/neck without acute findings. Scheduled Flexeril changed to as needed Minimize narcotics as able Mentation back to baseline Hypoxia RLL pneumonia, previously noted on imaging --CT Chest:Underlying emphysema, more significant in the lung apices. Mild right-sided pleural effusion with right lower lobe atelectasis versus residual infiltrate. Focal interstitial changes versus residual pneumonitis in the left lower lobe. No pneumothorax. Hypoxia likely multifactorial-pneumonia, overmedication with narcotics --Currently on Augmentin, doxycycline--will complete 7-day course Weaned off of supplemental oxygen Saturating well on room air - continues to have R-sided chest pain pleuritic, will repeat chest Xray, obtain procalcitonin (WBC elevated) Paroxysmal A fib Not a candidate Anticoagulation with significant thrombocytopenia/Bleeding risk/Recurrent falls Continue metoprolol, amiodarone Diffuse B Cell Lymphoma of head/neck:s/p 1 cycle of RCEOP (11/18/22 - 11/21/22) Chronic myelomonocytic leukemia Chronic Thrombocytopenia Transfusion reaction to platelets transfusion: Following with Dr. Rojas - randolph on hold for now Soft tissue neck CT with necrotic lymph nodes are further decreased in size from prior exam Continue allopurinol for tumor lysis syndrome prophylaxis Planned chemotherapy as outpatient as soon as possible. Needs follow-up with oncology upon discharge Chronic thrombocytopenia H/O ITP No acute bleeding issues Monitor platelets Severe protein calorie malnutrition:Significant weight loss > 30 pounds since 08/17. Continue Megace Poor oral intake BMI 18 Encouraged to increase oral intake Frequent falls: Recent R hip fx s/p IM nail by Dr. Null 10/27/22 Fall precautions Continue PT OT Needs placement Advised to schedule for outpatient orthopedics follow-up upon discharge PAD: ABIs done on 03/17 showed R 0.87 and L 0.85 at rest concerning for occlusive disease to b/l SFA and tibial artery along with L iliac disease. Arterial Doppler:Moderate atherosclerotic plaque within the bilateral lower extremities. Suspected occlusion of the distal left posterior tibial artery, otherwise patent vessels. Monophasic flow within the bilateral calf vessels Continue statin Heel wounds-POA wound care nurse consulted Supportive care Waffle boots. H/o Dysphagia Video swallow:few episodes of trace silent aspiration with the thin liquid barium only.= Aspiration precautions Appreciate speech therapy recommendations Continue minced and moist, easy to chew diet with thin liquids Magic mouthwash as needed SSS S/P PPM in 2019 COPD: c/w home inhalers. no signs of exacerbation As per prior provider Goals of care; counseling/discussion:noted prior attending's/team d/w pt on 11/26. Appreciate palliative care recs ---> pt can have both hospice level nursing support and chemo under his [facility] benefit but patient and not interested in pursuing hospice at this time DVT Px: SCDs Re: Thrombocytopenia Code Status: DNR/DNI Disposition Needs placement Admission and Anticipated Discharge Date Admission Date: December 26, 2022 Subjective Patient seen in follow up of AMS, hypoxia, hx of B-cell lymphoma States having right-sided chest pain intermittently No significant cough Poor appetite Denies any dyspnea, dizziness, nausea, vomiting, abdominal pain Currently breathing comfortably on RA present at the bedside Review of Systems Review of Systems: All systems reviewed & are unremarkable except as noted in Subjective Physical Exam Physical Exam: GENERAL: alert and awake, NAD, on RA. Thin/frail/weak appearing. HEENT: NC. EOMI. Pupils equal, round and reactive to light. Oral mucosa moist. NECK: No JVD, no neck masses. HEART: S1 and S2 heard. regular rate and rhythm. No murmur, no gallop. RESPIRATORY: Normal AP diameter. No accessory muscle use. No wheezing, no crackles. somewhat diminished on the right ABDOMEN: Soft, bowel sounds present, nontender, no distention. NEURO: No facial droop. Speech is clear. Obeys simple commands. Moves extremities. EXTREMITIES: No edema, no erythema seen. Results & Data Results & Data Vital Signs (Past 12 Hours) Vital Signs Temp Pulse Resp BP Pulse Ox Pulse Ox O2 Del Method 01/01/23 07:47 36.7 C 96 H 16 118/69 90 Room Air 01/01/23 00:54 94 O2 Del Method O2 Flow Rate 01/01/23 07:47 01/01/23 00:54 Nasal Cannula 2 Laboratory Results 01/01/23 01/01/23 Range/Units 05:15 05:15 WBC 17.06 H (4.8-10.8) K/ul RBC 3.38 L (4.70-6.10) M/uL Hgb 9.1 L (14.0-18.0) g/dl Hct 28.5 L (42.0-52.0) % MCV 84.3 (80.0-100.0) fL MCH 26.9 (25.0-34.0) pg MCHC 31.9 L (32.0-36.0) g/dL RDW Std Deviation 78.2 H (36.4-46.3) fL RDW Coeff of Efren 25.5 H (11.5-14.5) % Plt Count 24 L* (130-400) K/uL Platelet Estimate Signific. Decreased L (Normal) Sodium 136 (136-145) mmol/L Potassium 3.8 (3.5-5.1) mmol/L Chloride 105 (98-107) mmol/L Carbon Dioxide 20 L (21-32) mmol/L Anion Gap 11 (3-11) BUN 29 H (6-23) mg/dl Creatinine 1.15 (0.6-1.4) mg/dl Est Cr Clr Drug Dosing 44.4 ml/min Est GFR ( Amer) 72.8 ml/min Est GFR (Non-Af Amer) 62.8 ml/min BUN/Creatinine Ratio 25.2 H (10-20) Glucose 102 H (70-99(Fasting)) mg/dl Calcium 8.6 (8.6-10.3) mg/dl Medications Administered Current Inpatient Medications Acetaminophen (Acetaminophen 325 Mg Tab) 650 mg PO Q4H PRN PRN Reason: Pain or Fever Stop: 01/25/23 20:32 Last Admin: 12/31/22 02:22 Dose: 650 mg Hydrocodone Bitart/Acetaminophen (Hydrocodone/Acetamophen 5/325mg Tab) 1 tab PO BID@0500,2000 [facility] Stop: 01/11/23 19:59 Last Admin: 01/01/23 04:36 Dose: 1 tab Hydrocodone Bitart/Acetaminophen (Hydrocodone/Acetamophen 5/325mg Tab) 1 tab PO DAILY PRN PRN Reason: Pain Stop: 01/14/23 12:08 Last Admin: 12/31/22 12:23 Dose: 1 tab Albuterol (Albuterol Hfa 8 Gm Inhaler) 1 puffs INH QID PRN PRN Reason: sob Stop: 01/25/23 19:41 Allopurinol (Allopurinol 300 Mg Tab) 300 mg PO QAM [facility] Stop: 01/26/23 08:59 Last Admin: 01/01/23 09:52 Dose: 300 mg Amiodarone HCl (Amiodarone 200 Mg Tab) 200 mg PO DAILY [facility] Stop: 01/26/23 08:59 Last Admin: 01/01/23 09:52 Dose: 200 mg Amoxicillin/Clavulanate Potassium (Amoxicillin/Clavulanate 875 Mg Tab) 1 tab PO BIDM [facility] Stop: 01/04/23 16:59 Last Admin: 01/01/23 09:52 Dose: 1 tab Atorvastatin Calcium (Atorvastatin 40 Mg Tab) 40 mg PO QAM [facility] Stop: 01/26/23 08:59 Last Admin: 01/01/23 09:52 Dose: 40 mg Nystatin 30 ml/ Lidocaine HCl 30 ml/ Al Hydrox/Mg Hydrox/Simethicone 30 ml/ BARCODE IDENTIFIER 1 each 0 ml PO QID [facility] Stop: 01/27/23 12:59 Last Admin: 01/01/23 09:53 Dose: 5 ml Cyclobenzaprine HCl (Cyclobenzaprine Hcl 10 Mg Tab) 10 mg PO BID PRN PRN Reason: prn Stop: 01/25/23 20:59 Doxycycline Hyclate (Doxycycline Hyclate 100 Mg Cap) 100 mg PO BID [facility] Stop: 01/04/23 20:59 Last Admin: 01/01/23 09:52 Dose: 100 mg Megestrol Acetate (Megestrol Acetate 40 Mg Tab) [facility] Stop: 01/26/23 08:59 Last Admin: 01/01/23 09:52 Dose: 40 mg Metoprolol Tartrate (Metoprolol Tartrate 50 Mg Tab) 50 mg PO BID [facility] Stop: 01/26/23 08:59 Last Admin: 01/01/23 09:52 Dose: 50 mg Multivitamins/Minerals (Cerovite Adv Formula Tab) 1 tab PO QAM [facility] Stop: 01/26/23 08:59 Last Admin: 01/01/23 09:52 Dose: 1 tab Ondansetron HCl (Ondansetron Inj 2 Mg/Ml 2 Ml Vial) 4 mg IV Q6H PRN PRN Reason: Nausea Stop: 01/25/23 20:32 Pantoprazole Sodium (Pantoprazole 40 Mg Tab) [facility] [place] Stop: 01/26/23 08:59 Last Admin: 01/01/23 09:52 Dose: 40 mg Polyethylene Glycol (Polyethylene (Miralax) 17 Gm Pack) 17 gm PO DAILY PRN PRN Reason: Constipation Stop: 01/25/23 20:32
[2023-01-01] MEDS: HYDROCODONE/ACETAMOPHEN 5/325MG TAB PO PRN (11:32)
--- NOTE | 2023-01-01 11:41 | XRay Report ---
XR chest 1V portable CLINICAL HISTORY: follow up COMPARISON STUDY: Chest radiograph December 26, 2022. Chest CT December 27, 2022. FINDINGS: Dual lead left subclavian pacer is in place. There is no pneumothorax. A moderate right ple ural effusion has significantly increased in size since chest CT of December 27, 2022. Associated airspac e opacity is noted with interstitial thickening within the right lung. The left lung is clear. Underl brandon emphysema is better depicted on prior chest CT. No convincing evidence for pulmonary edema. IMPRESSION: Significant increase in size of a moderate right pleural effusion, possibly loculated, since chest CT of December 27, 2022. Associated right lung airspace opacity could reflect pneumonia or atelectasis. Rad iographic follow-up to ensure resolution is recommended. ACT 112: Negative or not required by law. Electronically signed by: Alok Davenport M.D. 01/01/2023 11:39 AM
[2023-01-01] MEDS: guaiFENesin SUGAR FREE 200 MG/10 ML UDC PO SCH ×3 (12:41→23:49)
[2023-01-01] MEDS ORDERED: POTASSIUM CHLORIDE PWD 20 MEQ PACK PO ONE (12:54)
[2023-01-01] MEDS: FUROSEMIDE 20 MG TAB PO SCH (17:23)
[2023-01-02] MEDS: HYDROCODONE/ACETAMOPHEN 5/325MG TAB PO SCH (05:06)
[2023-01-02] MEDS: guaiFENesin SUGAR FREE 200 MG/10 ML UDC PO SCH ×3 (05:06→16:55)
[2023-01-02 06:44] LABS: Hematocrit (blood only) 27.4 % (42.0-52.0); Hemoglobin 8.8 g/dl (14.0-18.0); Mean Corpuscular Hemoglobin 26.9 pg (25.0-34.0); Mean Corpuscular Hgb Conc 32.1 g/dL (32.0-36.0); Mean Corpuscular Volume 83.8 fL (80.0-100.0); Nucleated RBC # (auto) 0.02 K/uL (0-0.12); Nucleated RBC % (auto) 0.1 %; Platelet Count 30 K/uL (130-400); RDW Coefficient of Variation 25.1 % (11.5-14.5); RDW Standard Deviation 77.4 fL (36.4-46.3); Red Blood Count 3.27 M/uL (4.70-6.10); White Blood Count 14.87 K/ul (4.8-10.8)
--- NOTE | 2023-01-02 06:53 | Hospitalist Progress Note ---
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 He is being managed for the following: Acute delirium: Likely secondary to excessive opioid use/polypharmacy -CT head, CTA head/neck without acute findings. Scheduled Flexeril changed to as needed Minimize narcotics as able Mentation back to baseline Hypoxia RLL pneumonia, previously noted on imaging --CT Chest:Underlying emphysema, more significant in the lung apices. Mild right-sided pleural effusion with right lower lobe atelectasis versus residual infiltrate. Focal interstitial changes versus residual pneumonitis in the left lower lobe. No pneumothorax. Hypoxia likely multifactorial-pneumonia, overmedication with narcotics --Currently on Augmentin, doxycycline--plan was to complete 7-day course Weaned off of supplemental oxygen - however now on 2L d/t new pl. effusion - continues to have R-sided chest pain pleuritic, repeated chest Xray (01/01), and obtained procalcitonin (as WBC elevated) CXR c/w with R sided pl. effusion - reviewed personally -started on small dose lasix as thoracentesis difficult given his thrombocytopenia Repeated CXR today- pl. effusion w/o improvement, procal normal, will discuss w/ pulm. medicine -pulm. medicine consulted Paroxysmal A fib Not a candidate Anticoagulation with significant thrombocytopenia/Bleeding risk/Recurrent falls Continue metoprolol, amiodarone Diffuse B Cell Lymphoma of head/neck:s/p 1 cycle of RCEOP (11/18/22 - 11/21/22) Chronic myelomonocytic leukemia Chronic Thrombocytopenia Transfusion reaction to platelets transfusion: Following with Dr. Rojas - randolph on hold for now Soft tissue neck CT with necrotic lymph nodes are further decreased in size from prior exam Continue allopurinol for tumor lysis syndrome prophylaxis Planned chemotherapy as outpatient as soon as possible. Needs follow-up with oncology upon discharge Chronic thrombocytopenia H/O ITP No acute bleeding issues Monitor platelets Severe protein calorie malnutrition:Significant weight loss > 30 pounds since 08/17. Continue Megace Poor oral intake BMI 18 Encouraged to increase oral intake Frequent falls: Recent R hip fx s/p IM nail by Dr. Null 10/27/22 Fall precautions Continue PT OT Needs placement Advised to schedule for outpatient orthopedics follow-up upon discharge PAD: ABIs done on 03/17 showed R 0.87 and L 0.85 at rest concerning for occlusive disease to b/l SFA and tibial artery along with L iliac disease. Arterial Doppler:Moderate atherosclerotic plaque within the bilateral lower extremities. Suspected occlusion of the distal left posterior tibial artery, otherwise patent vessels. Monophasic flow within the bilateral calf vessels Continue statin Heel wounds-POA wound care nurse consulted Supportive care Waffle boots. H/o Dysphagia Video swallow:few episodes of trace silent aspiration with the thin liquid barium only.= Aspiration precautions Appreciate speech therapy recommendations Continue minced and moist, easy to chew diet with thin liquids Magic mouthwash as needed SSS S/P PPM in 2019 COPD: c/w home inhalers. no signs of exacerbation As per prior provider Goals of care; counseling/discussion:noted prior attending's/team d/w pt on 11/26. Appreciate palliative care recs ---> pt can have both hospice level nursing support and chemo under his [facility] benefit but patient and not interested in pursuing hospice at this time DVT Px: SCDs Re: Thrombocytopenia Code Status: DNR/DNI Disposition Needs placement Admission and Anticipated Discharge Date Admission Date: December 26, 2022 Subjective Patient seen in follow up of AMS, hypoxia, hx of B-cell lymphoma Pt reported having right-sided chest pain intermittently - CXR obtained yesterday and showed pl. effusion No significant cough Poor appetite Denies any dyspnea, dizziness, nausea, vomiting, abdominal pain Currently breathing comfortably on 2L suppl. O2 Review of Systems Review of Systems: All systems reviewed & are unremarkable except as noted in Subjective Physical Exam Physical Exam: GENERAL: alert and awake, NAD, on 2 L of O2 Thin/frail/weak appearing. HEENT: NC. EOMI. Pupils equal, round and reactive to light. Oral mucosa moist. NECK: No JVD, no neck masses. HEART: S1 and S2 heard. regular rate and rhythm. No murmur, no gallop. RESPIRATORY: Normal AP diameter. No accessory muscle use. No wheezing, +diminished on the right ABDOMEN: Soft, bowel sounds present, nontender, no distention. NEURO: No facial droop. Speech is clear. Obeys simple commands. Moves ex tremities. EXTREMITIES: No edema, no erythema seen. Results & Data Results & Data Vital Signs (Past 12 Hours) Vital Signs Temp Pulse Pulse Resp BP Pulse Ox O2 Del Method 01/02/23 05:16 36.6 C 97 H 18 129/76 91 Room Air 01/01/23 19:50 Nasal Cannula 01/01/23 21:00 36.6 C 99 H 20 114/68 92 Nasal Cannula O2 Flow Rate 01/02/23 05:16 2 01/01/23 19:50 2 01/01/23 21:00 2 Laboratory Results 01/02/23 01/02/23 01/02/23 Range/Units 05:34 05:34 05:34 WBC 14.87 H (4.8-10.8) K/ul RBC 3.27 L (4.70-6.10) M/uL Hgb 8.8 L (14.0-18.0) g/dl Hct 27.4 L (42.0-52.0) % MCV 83.8 (80.0-100.0) fL MCH 26.9 (25.0-34.0) pg MCHC 32.1 (32.0-36.0) g/dL RDW Std Deviation 77.4 H (36.4-46.3) fL RDW Coeff of Efren 25.1 H (11.5-14.5) % Plt Count 30 L (130-400) K/uL Absolute Nucleated RBC 0.02 (0-0.12) K/uL Nucleated RBC % (auto) 0.1 % Sodium 135 L (136-145) mmol/L Potassium 3.4 L (3.5-5.1) mmol/L Chloride 102 (98-107) mmol/L Carbon Dioxide 21 (21-32) mmol/L Anion Gap 12 H (3-11) BUN 29 H (6-23) mg/dl Creatinine 1.19 (0.6-1.4) mg/dl Est Cr Clr Drug Dosing 42.9 ml/min Est GFR ( Amer) 69.8 ml/min Est GFR (Non-Af Amer) 60.2 ml/min BUN/Creatinine Ratio 24.4 H (10-20) Glucose 110 H (70-99(Fasting)) mg/dl Calcium 8.6 (8.6-10.3) mg/dl Phosphorus 4.4 (2.5-4.9) mg/dl Magnesium 1.7 (1.7-2.4) mg/dl Procalcitonin 0.27 (0-0.5) ng/ml Medications Administered Current Inpatient Medications Acetaminophen (Acetaminophen 325 Mg Tab) 650 mg PO Q4H PRN PRN Reason: Pain or Fever Stop: 01/25/23 20:32 Last Admin: 12/31/22 02:22 Dose: 650 mg Hydrocodone Bitart/Acetaminophen (Hydrocodone/Acetamophen 5/325mg Tab) 1 tab PO BID@0500,2000 [facility] Stop: 01/11/23 19:59 Last Admin: 01/02/23 05:06 Dose: 1 tab Hydrocodone Bitart/Acetaminophen (Hydrocodone/Acetamophen 5/325mg Tab) 1 tab PO DAILY PRN PRN Reason: Pain Stop: 01/14/23 12:08 Last Admin: 01/01/23 11:32 Dose: 1 tab Albuterol (Albuterol Hfa 8 Gm Inhaler) 1 puffs INH QID PRN PRN Reason: sob Stop: 01/25/23 19:41 Allopurinol (Allopurinol 300 Mg Tab) 300 mg PO QAM [facility] Stop: 01/26/23 08:59 Last Admin: 01/01/23 09:52 Dose: 300 mg Amiodarone HCl (Amiodarone 200 Mg Tab) 200 mg PO DAILY [facility] Stop: 01/26/23 08:59 Last Admin: 01/01/23 09:52 Dose: 200 mg Amoxicillin/Clavulanate Potassium (Amoxicillin/Clavulanate 875 Mg Tab) 1 tab PO BIDM [facility] Stop: 01/04/23 16:59 Last Admin: 01/01/23 17:23 Dose: 1 tab Atorvastatin Calcium (Atorvastatin 40 Mg Tab) 40 mg PO QAM [facility] Stop: 01/26/23 08:59 Last Admin: 01/01/23 09:52 Dose: 40 mg Nystatin 30 ml/ Lidocaine HCl 30 ml/ Al Hydrox/Mg Hydrox/Simethicone 30 ml/ BARCODE IDENTIFIER 1 each 0 ml PO QID [facility] Stop: 01/27/23 12:59 Last Admin: 01/01/23 21:18 Dose: 5 ml Cyclobenzaprine HCl (Cyclobenzaprine Hcl 10 Mg Tab) 10 mg PO BID PRN PRN Reason: prn Stop: 01/25/23 20:59 Doxycycline Hyclate (Doxycycline Hyclate 100 Mg Cap) 100 mg PO BID [facility] Stop: 01/04/23 20:59 Last Admin: 01/01/23 21:18 Dose: 100 mg Furosemide (Furosemide 20 Mg Tab) 20 mg PO BID17 [facility] Stop: 01/31/23 16:59 Last Admin: 01/01/23 17:23 Dose: 20 mg Guaifenesin (Guaifenesin Sugar Free 200 Mg/10 Ml Udc) 200 mg PO Q6H [facility] Stop: 01/31/23 11:29 Last Admin: 01/02/23 05:06 Dose: 200 mg Megestrol Acetate (Megestrol Acetate 40 Mg Tab) 40 mg PO QAM [facility] Stop: 01/26/23 08:59 Last Admin: 01/01/23 09:52 Dose: 40 mg Metoprolol Tartrate (Metoprolol Tartrate 50 Mg Tab) 50 mg PO BID [facility] Stop: 01/26/23 08:59 Last Admin: 01/01/23 21:18 Dose: 50 mg Multivitamins/Minerals (Cerovite Adv Formula Tab) [facility] Stop: 01/26/23 08:59 Last Admin: 01/01/23 09:52 Dose: 1 tab Ondansetron HCl (Ondansetron Inj 2 Mg/Ml 2 Ml Vial) 4 mg IV Q6H PRN PRN Reason: Nausea Stop: 01/25/23 20:32 Pantoprazole Sodium (Pantoprazole 40 Mg Tab) [facility] Stop: 01/26/23 08:59 Last Admin: 01/01/23 09:52 Dose: 40 mg Polyethylene Glycol (Polyethylene (Miralax) 17 Gm Pack) 17 gm PO DAILY PRN PRN Reason: Constipation Stop: 01/25/23 20:32
[2023-01-02 06:57] LABS: BUN Creatinine Ratio 24.4 (10-20); Calcium 8.6 mg/dl (8.6-10.3); Creatinine Clr Calc Pharmacy 42.9 ml/min; Est GFR (African American) 69.8 ml/min; Est GFR (Non-African American) 60.2 ml/min; Magnesium 1.7 mg/dl (1.7-2.4); Phosphorus 4.4 mg/dl (2.5-4.9); Potassium 3.4 mmol/L (3.5-5.1)
--- NOTE | 2023-01-02 07:15 | XRay Report ---
XR chest 1V portable CLINICAL HISTORY: follow up pl. effusion COMPARISON STUDY: Chest CT December 27, 2022. Chest radiograph January 01, 2023. FINDINGS: Dual lead subclavian pacemaker. Cardiac size is normal. Mediastinal contours are stable. Th ere is no pneumothorax. A moderate to large right pleural effusion, likely loculated, has increased i n size since prior chest radiograph. Associated right lung airspace opacity is present. Asymmetric in terstitial thickening within the right lung is noted. Linear left basilar densities favor atelectasis . IMPRESSION: Increase in size of a moderate to large right pleural effusion, likely loculated. Associ ated right lung airspace opacities could reflect pneumonia or atelectasis. ACT 112: Negative or not required by law. Electronically signed by: Alok Davenport M.D. 01/02/2023 7:14 AM
[2023-01-02] MEDS: AMOXICILLIN/CLAVULANATE 875 MG TAB PO SCH ×2 (09:13→17:03)
[2023-01-02] MEDS: FUROSEMIDE 20 MG TAB PO SCH ×2 (09:14→17:03)
[2023-01-02] MEDS: MAGNESIUM PO SCH ×4 (09:14→20:48)
[2023-01-02] MEDS: METOPROLOL TARTRATE 50 MG TAB PO SCH ×2 (09:14→20:45)
[2023-01-02] MEDS: DOXYCYCLINE HYCLATE 100 MG CAP PO SCH ×2 (09:14→20:46)
[2023-01-02] MEDS: AMIODARONE 200 MG TAB PO SCH (09:14)
[2023-01-02] MEDS: ATORVASTATIN 40 MG TAB PO SCH (09:14)
[2023-01-02] MEDS: NYSTATIN PO SCH ×4 (09:14→20:48)
[2023-01-02] MEDS: CEROVITE ADV FORMULA TAB PO SCH (09:14)
[2023-01-02] MEDS: allopurinoL 300 MG TAB PO SCH (09:14)
[2023-01-02] MEDS: [UNRECOGNIZED DRUG - OTHER] PO SCH ×4 (09:14→20:48)
[2023-01-02] MEDS: MEGESTROL ACETATE 40 MG TAB PO SCH (09:14)
[2023-01-02] MEDS: LIDOCAINE VISCOUS PO SCH ×4 (09:14→20:48)
[2023-01-02] MEDS: ALUMINUM PO SCH ×4 (09:14→20:48)
[2023-01-02] MEDS: PANTOprazole 40 MG TAB PO SCH (09:15)
[2023-01-02] MEDS ORDERED: POTASSIUM CHLORIDE PWD 20 MEQ PACK PO ONE (10:00)
[2023-01-02] MEDS: HYDROCODONE/ACETAMOPHEN 5/325MG TAB PO PRN ×2 (11:48→20:44)
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
[2023-01-02] MEDS ORDERED: ACETAMINOPHEN 325 MG TAB PO PRN (12:54)
[2023-01-02] MEDS ORDERED: diphenhydrAMINE HCL 25 MG/10 ML UDC PO ONE (12:55)
[2023-01-02] MEDS ORDERED: dexAMETHasone 8 MG in SYRINGE 0 ML IV ONE (13:15)
[2023-01-03] MEDS: guaiFENesin SUGAR FREE 200 MG/10 ML UDC PO SCH ×5 (00:06→18:03)
[2023-01-03] MEDS: HYDROCODONE/ACETAMOPHEN 5/325MG TAB PO PRN ×3 (04:31→19:21)
[2023-01-03 06:34] LABS: Hematocrit (blood only) 25.3 % (42.0-52.0); Hemoglobin 8.2 g/dl (14.0-18.0); Mean Corpuscular Hemoglobin 26.9 pg (25.0-34.0); Mean Corpuscular Hgb Conc 32.4 g/dL (32.0-36.0); Nucleated RBC # (auto) 0.04 K/uL (0-0.12); Nucleated RBC % (auto) 0.4 %; Platelet Count 79 K/uL (130-400); RDW Standard Deviation 75.3 fL (36.4-46.3); Red Blood Count 3.05 M/uL (4.70-6.10); White Blood Count 9.93 K/ul (4.8-10.8)
[2023-01-03 06:49] LABS: Anisocytosis Present; Basophils # (auto) 0.01 K/uL (0-0.2); Basophils % (auto) 0.1 %; Giant Platelets 1+; Hypogranular Neutrophils 2+; Immature Granulocytes # (auto) 0.05 K/uL (0.01-0.20); Immature Granulocytes % (auto) 0.5 %; Lymphocytes # (auto) 0.96 K/uL (1.2-3.4); Lymphocytes % (auto) 9.7 %; Monocytes # (auto) 1.43 K/uL (0.11-0.59); Monocytes % (auto) 14.4 %; Neutrophils # (auto) 7.48 K/uL (1.40-6.50); Neutrophils % (auto) 75.3 %; Poikilocytosis Present; Polychromasia 1+
[2023-01-03 07:21] LABS: BUN Creatinine Ratio 26.3 (10-20); Calcium 8.9 mg/dl (8.6-10.3); Creatinine Clr Calc Pharmacy 44.8 ml/min; Est GFR (African American) 73.5 ml/min; Est GFR (Non-African American) 63.4 ml/min; Phosphorus 5.5 mg/dl (2.5-4.9); Potassium 3.9 mmol/L (3.5-5.1)
[2023-01-03] MEDS: DOXYCYCLINE HYCLATE 100 MG CAP PO SCH ×2 (08:29→20:14)
[2023-01-03] MEDS: METOPROLOL TARTRATE 50 MG TAB PO SCH ×2 (08:29→20:14)
[2023-01-03] MEDS: CEROVITE ADV FORMULA TAB PO SCH (08:30)
[2023-01-03] MEDS: allopurinoL 300 MG TAB PO SCH (08:30)
[2023-01-03] MEDS: ATORVASTATIN 40 MG TAB PO SCH (08:30)
[2023-01-03] MEDS: AMOXICILLIN/CLAVULANATE 875 MG TAB PO SCH ×2 (08:30→17:48)
[2023-01-03] MEDS: PANTOprazole 40 MG TAB PO SCH (08:30)
[2023-01-03] MEDS: MEGESTROL ACETATE 40 MG TAB PO SCH (08:30)
[2023-01-03] MEDS: AMIODARONE 200 MG TAB PO SCH (08:30)
[2023-01-03] MEDS: FUROSEMIDE 20 MG TAB PO SCH ×2 (08:31→17:48)
[2023-01-03] MEDS: ALUMINUM PO SCH ×4 (08:31→20:15)
[2023-01-03] MEDS: NYSTATIN PO SCH ×4 (08:31→20:15)
[2023-01-03] MEDS: MAGNESIUM PO SCH ×4 (08:31→20:15)
[2023-01-03] MEDS: [UNRECOGNIZED DRUG - OTHER] PO SCH ×4 (08:31→20:15)
[2023-01-03] MEDS: LIDOCAINE VISCOUS PO SCH ×4 (08:31→20:15)
--- NOTE | 2023-01-03 09:57 | Pulmonology Progress Note ---
Date of Service January 03, 2023 Assessment & Plan (1) Hypoxia: (2) Pneumonia: (3) Thrombocytopenia: (4) Loculated pleural effusion: (5) COPD with emphysema: Plan Impression: 72-year-old male with diffuse large B-cell lymphoma currently undergoing chemotherapy admitted with delirium and pneumonia now with right- sided pleural effusion. 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 They understand and want to go ahead with the procedure Case was discussed with Dr. Benton Please note the above document was generated using voice recognition software. It may contain grammatical, syntax or spelling errors.Any formal questions or concerns about the content, text or information contained within the body of this dictation should be directly addressed to the provider for clarification. Admission and Anticipated Discharge Date Admission Date: December 26, 2022 Subjective Patient seen and examined at bedside. No acute distress, no adverse events overnight. Patient's family was also at bedside. Denies any chest pain, no headache, no nausea, no vomiting Fair appetite. Review of Systems Review of Systems: All systems reviewed & are unremarkable except as noted in Subjective Physical Exam Physical Exam: Constitutional: No acute distress, frail-appearing HEENT: EOMI, PERRLA Respiratory system: Decreased air entry on the right side, no wheeze, no rhonchi, positive crackles right lower lobe CVS: S1-S2 positive, no murmurs or gallops Abdomen: Soft, nontender, nondistended, positive bowel sounds x4 Extremities: +2 pulses bilaterally radialis/ dorsalis pedis, no cyanosis, no edema Neuro: Awake alert oriented x3 Psych: Normal mood and affect G/U: No Choudhary Skin: no rashes, warm and dry Lymphatic: no cervical or axillary lymphadenopathy Results & Data Results & Data Vital Signs (Past 12 Hours) Vital Signs Temp Pulse Pulse Pulse Resp BP Pulse Ox 01/03/23 07:52 36.7 C 99 H 18 144/75 H 92 01/03/23 03:00 36.5 C 68 19 125/75 91 01/02/23 21:59 81 01/02/23 23:00 36.4 C L 87 21 112/68 91 O2 Del Method O2 Flow Rate 01/03/23 07:52 Nasal Cannula 2 01/03/23 03:00 Nasal Cannula 2 01/02/23 21:59 01/02/23 23:00 Nasal Cannula 2 Laboratory Results 01/03/23 05:38 01/03/23 05:38 PG Care Time/CCT Total # of Minutes Spent Total Time Spent with Patient: Total time spent is greater than 50% in coordination of care (as documented) at patient's floor/unit and/or counseling patient: Coding [place] [address] SUB INP/OBS CARE 3/50MIN Patient Type Established Diagnoses Hypoxia R09.02 Pneumonia J18.9 Thrombocytopenia D69.6 Loculated pleural effusion J90 COPD with emphysema J43.9
[2023-01-03] MEDS ORDERED: LIDOCAINE 2% 2 ML VIAL/AMP(20MG/ML) INFIL ONE (12:06)
[2023-01-03] MEDS ORDERED: LIDOCAINE 2% LOCAL 50 ML VIAL ONE (12:08)
[2023-01-03] MEDS ORDERED: LIDOCAINE 2% 20 MG/ML 5 ML SYR IV STA (12:08)
--- NOTE | 2023-01-03 12:38 | Procedure Note ---
Procedure Note Date of Service January 03, 2023 Note Procedure: Pigtail chest tube insertion Performance Engineer: Dr. Tania Carter Indication: Right-sided loculated pleural effusion Consent: Signed by patient and verified with timeout prior to procedure Anesthesia: 1% lidocaine without epinephrine local Procedure: Consent was verified and timeout performed. Appropriate imaging studies were reviewed prior to the procedure. Patient was placed in a seated position. Appropriate site above the diaphragm on the right midaxillary line fourth intercostal space for chest tube insertion was selected. The skin was prepped and draped in normal sterile fashion. Lidocaine was used for local analgesia. Serosanguineous was aspirated via the finder needle. A small skin patsy was made with the scalpel and the catheter over the needle apparatus was advanced over the rib into the pleural space. With the help of guidewire and Seldinger technique, 14 Cameroonian pigtail catheter was inserted and connected to Pleur-evac. Minimal air leak was appreciated after the procedure which stopped. Chest x-ray to follow Fluid was sent for labs, culture and cytology. The patient tolerated the procedure without obvious complication Complications: None Blood loss: Less than 2 cc. Coding CPT Codes Pulmonary/Thoracic - Pulmonary and Thoracic: 62663 Tube thoracostomy ([id number]) Pulmonary/Thoracic - Pulmonary and Thoracic: 22242 Pleural drainage w/o imaging ([id number]) Pulmonary/Thoracic - Pulmonary and Thoracic: 66454 US, Chest, real time with imaging documentation ([id number]) Pulmonary/Thoracic - Pulmonary and Thoracic: 91391 [place] chest fibrin initial day ([id number]) [facility] [place] Procedure Codes (Charges) Pulmonary/Thoracic Procedure 1: Pulmonary and Thoracic: 04475 Tube thoracostomy Procedure 2: Pulmonary and Thoracic: 69510 Pleural drainage w/o imaging Procedure 3: Pulmonary and Thoracic: 83428 US, Chest, real time with imaging documentation Procedure 4: Pulmonary and Thoracic: 37416 Lyse chest fibrin initial day
--- NOTE | 2023-01-03 13:09 | XRay Report ---
XR chest 1V portable CLINICAL HISTORY: CHEST TUBE PLACEMENT TECHNIQUE: Single frontal radiograph of the chest was obtained. Comparison: Comparison is made to chest radiographs 01/02/2023 FINDINGS: There is interval placement of a right pigtail catheter. Dual lead pacemaker is seen. Calcified aorti c knob is seen. Airspace opacity is seen in the right lower lung. Right pleural effusion is decreased from prior exam. No pneumothorax is seen. IMPRESSION: 1. Interval placement of right pigtail catheter with decrease in size of right pleural effusion. No pneumothorax is seen. 2. Right lower lung airspace opacity likely represents atelectasis with or without superimposed aspi ration/pneumonia. ACT 112: Negative or not required by law. Electronically signed by: Kvng Delatorre M.D. 01/03/2023 1:07 PM
[2023-01-03 13:40] LABS: Albumin Level 3.6 gm/dl (3.4-5.0); Bilirubin,Total 0.6 mg/dl (0.2-1.0)
[2023-01-03 13:45] LABS: Total Protein 6.5 gm/dl (6.0-8.3)
[2023-01-03 13:46] LABS: Total Protein Pleural Fluid 4.5 gm/dl
[2023-01-03 14:54] LABS: Basophils, Fluid 1 %; Eosinophils, Fluid 5 %; Lymphocytes, Fluid 18 %; Mono,Macrophage,Mesothelial 4 %; Neutrophils, Fluid 72 %
[2023-01-03 14:55] LABS: Appearance Pleural Fluid Bloody; Color Pleural Fluid Red; RBC Pleural Fluid Auto 57000 /uL; Source Pleural Fluid Right Lung; WBC Pleural Fluid Auto 1442 /uL
--- NOTE | 2023-01-03 16:22 | Hospitalist Progress Note ---
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 He is being managed for the following: Acute metabolic and cephalopathy Likely secondary to excessive opioid use/polypharmacy -CT head, CTA head/neck without acute findings. Scheduled Flexeril changed to as needed Minimize narcotics as able Mentation back to baseline No more drowsiness and/or confusion Hypoxia RLL pneumonia, previously noted on imaging CT Chest:Underlying emphysema, more significant in the lung apices. Mild right- sided pleural effusion with right lower lobe atelectasis versus residual infiltrate. Focal interstitial changes versus residual pneumonitis in the left lower lobe. No pneumothorax. Hypoxia likely multifactorial-pneumonia, overmedication with narcotics Currently on Augmentin, doxycycline--plan was to complete 7-day course Continues to have R-sided chest pain pleuritic, repeated chest Xray (01/01), and obtained procalcitonin (as WBC elevated) CXR c/w with R sided pl. effusion - reviewed personally Started on small dose lasix as thoracentesis difficult given his thrombocytopenia Right pleural effusion is not getting any better Pulmonary consulted-appreciate input and recommendation Status post right thoracentesis-loculated effusion and is status post chest tube placement Will have repeat CT in about 3 days and then depending on the fluid status the tube will be taken out Fluid studies pending Paroxysmal A fib Not a candidate Anticoagulation with significant thrombocytopenia/Bleeding risk/Recurrent falls Continue metoprolol, amiodarone Diffuse B Cell Lymphoma of head/neck:s/p 1 cycle of RCEOP (11/18/22 - 11/21/22) Chronic myelomonocytic leukemia Chronic Thrombocytopenia Transfusion reaction to platelets transfusion: Following with Dr. Rojas - randolph on hold for now Soft tissue neck CT with necrotic lymph nodes are further decreased in size from prior exam Continue allopurinol for tumor lysis syndrome prophylaxis Planned chemotherapy as outpatient as soon as possible. Needs follow-up with oncology upon discharge Chronic thrombocytopenia H/O ITP No acute bleeding issues Platelets count went down to 24 on eighth and 30th on ninth of this month Patient received 2 units of platelet pheresis and the platelet count is 79 as of 01/03/2023 S/p thoracentesis on 01/03/2023 Severe protein calorie malnutrition:Significant weight loss > 30 pounds since 08/17. Continue Megace Poor oral intake BMI 18 Encouraged to increase oral intake Frequent falls: Recent R hip fx s/p IM nail by Dr. Null 10/27/22 Fall precautions Continue PT OT Needs placement Advised to schedule for outpatient orthopedics follow-up upon discharge PAD: ABIs done on 03/17 showed R 0.87 and L 0.85 at rest concerning for occlusive disease to b/l SFA and tibial artery along with L iliac disease. Arterial Doppler:Moderate atherosclerotic plaque within the bilateral lower extremities. Suspected occlusion of the distal left posterior tibial artery, otherwise patent vessels. Monophasic flow within the bilateral calf vessels Continue statin Heel wounds-POA wound care nurse consulted Supportive care Waffle boots. H/o Dysphagia Video swallow:few episodes of trace silent aspiration with the thin liquid barium only.= Aspiration precautions Appreciate speech therapy recommendations Continue minced and moist, easy to chew diet with thin liquids Magic mouthwash as needed SSS S/P PPM in 2019 COPD: c/w home inhalers. no signs of exacerbation DVT Px: SCDs Re: Thrombocytopenia Code Status: DNR/DNI Disposition Needs placement Admission and Anticipated Discharge Date Admission Date: December 26, 2022 Subjective 01/03/2023 The patient was seen and examined in telemetry unit in presence of the He has been feeling much better Denies any shortness of breath or chest pain at rest Remains generally weak and lethargic Review of Systems Review of Systems: All systems reviewed and are unremarkable except as noted below Physical Exam Physical Exam: Lying in bed comfortably Constitutional: + ill appearing and average body habitus Eyes: PERRL, conjunctivae normal, anicteric sclerae ENMT: external ear and nose normal, oropharynx normal Neck: trachea midline, no thyromegaly Respiratory: no respiratory distress Auscultation: + diminished lung sounds and + crackles (Bibasilar crackles with decreased breath sounds on the right); no wheezes Cardiovascular: Rate/Rhythm: regular rate and regular rhythm; not tachycardic Heart Sounds: normal S1 and normal S2; no murmur Extremities: no edema Gastrointestinal (Abdomen): Inspection/Auscultation: abdomen not distended Percussion/Palpation: abdomen soft; abdomen nontender Musculoskeletal: No acute arthritis in any joint Neurologic: Alert, awake and oriented x3. Generally weak Lymphatic: no cervical or axillary lymphadenopathy Results & Data Results & Data Vital Signs (Past 12 Hours) Vital Signs Temp Pulse Pulse Pulse Resp BP Pulse Ox 01/03/23 12:55 01/03/23 11:49 36.8 C 97 H 18 108/63 90 01/03/23 10:06 90 01/03/23 07:52 36.7 C 99 H 18 144/75 H 92 Pulse Ox O2 Del Method O2 Del Method O2 Flow Rate 01/03/23 12:55 92 Nasal Cannula 01/03/23 11:49 Nasal Cannula 2 01/03/23 10:06 01/03/23 07:52 Nasal Cannula 2 Laboratory Results Short CBC 01/03/23 Range/Units 05:38 WBC 9.93 (4.8-10.8) K/ul Hgb 8.2 L (14.0-18.0) g/dl Hct 25.3 L (42.0-52.0) % Plt Count 79 L D (130-400) K/uL BMP 01/03/23 05:38 Sodium 136 Potassium 3.9 Chloride 103 Carbon Dioxide 21 BUN 30 H Creatinine 1.14 Glucose 141 H Calcium 8.9 Liver Function 01/03/23 Range/Units 13:02 Total Bilirubin 0.6 (0.2-1.0) mg/dl Albumin 3.6 (3.4-5.0) gm/dl Medications Administered Current Inpatient Medications Acetaminophen (Acetaminophen 325 Mg Tab) 650 mg PO Q4H PRN PRN Reason: Mild Pain or Fever Stop: 01/25/23 20:32 Last Admin: 04/07/23 02:22 Dose: 650 mg Acetaminophen (Acetaminophen 325 Mg Tab) 650 mg PO ONE PRN PRN Reason: plt transfusion Stop: 02/01/23 12:53 Hydrocodone Bitart/Acetaminophen (Hydrocodone/Acetamophen 5/325mg Tab) 1 tab PO Q6H PRN PRN Reason: Moderate to Severe Pain Stop: 01/14/23 12:08 Last Admin: 01/03/23 12:49 Dose: 1 tab Albuterol (Albuterol Hfa 8 Gm Inhaler) 1 puffs INH QID PRN PRN Reason: sob Stop: 01/25/23 19:41 Allopurinol (Allopurinol 300 Mg Tab) 300 mg PO QAM [facility] [place] Stop: 01/26/23 08:59 Last Admin: 01/03/23 08:30 Dose: 300 mg Amiodarone HCl (Amiodarone 200 Mg Tab) 200 mg PO DAILY [facility] [place] Stop: 01/26/23 08:59 Last Admin: 01/03/23 08:30 Dose: 200 mg Amoxicillin/Clavulanate Potassium (Amoxicillin/Clavulanate 875 Mg Tab) 1 tab PO BIDM [facility] [place] Stop: 01/04/23 16:59 Last Admin: 01/03/23 08:30 Dose: 1 tab Atorvastatin Calcium (Atorvastatin 40 Mg Tab) 40 mg PO QAM [facility] [place] Stop: 01/26/23 08:59 Last Admin: 01/03/23 08:30 Dose: 40 mg Nystatin 30 ml/ Lidocaine HCl 30 ml/ Al Hydrox/Mg Hydrox/Simethicone 30 ml/ [employer]IFIER 1 each 0 ml PO QID [facility] [place] Stop: 01/27/23 12:59 Last Admin: 01/03/23 12:33 Dose: 30 ml Cyclobenzaprine HCl (Cyclobenzaprine Hcl 10 Mg Tab) 10 mg PO BID PRN PRN Reason: muscle spasms Stop: 01/25/23 20:59 Doxycycline Hyclate (Doxycycline Hyclate 100 Mg Cap) 100 mg PO BID [facility] [place] Stop: 01/04/23 20:59 Last Admin: 01/03/23 08:29 Dose: 100 mg Furosemide (Furosemide 20 Mg Tab) 20 mg PO [id number] [facility] [place] Stop: 01/31/23 16:59 Last Admin: 01/03/23 08:31 Dose: 20 mg Guaifenesin (Guaifenesin Sugar Free 200 Mg/10 Ml Udc) 200 mg PO Q6H [facility] [place] Stop: 01/31/23 11:29 Last Admin: 01/03/23 13:23 Dose: Not Given Alteplase, Recombinant 10 mg/ (Syringe) 60 mls @ 0 mls/hr IPL Q12H [facility] [place]; Protocol Stop: 01/06/23 06:01 Dornase Keon 5 ml/ Syringe 30 mls @ 0 mls/hr IPL Q12H [facility] [place]; Protocol Stop: 01/06/23 06:01 Megestrol Acetate (Megestrol Acetate 40 Mg Tab) 40 mg PO [facility] Stop: 01/26/23 08:59 Last Admin: 01/03/23 08:30 Dose: 40 mg Metoprolol Tartrate (Metoprolol Tartrate 50 Mg Tab) 50 mg PO BID [facility] [place] Stop: 01/26/23 08:59 Last Admin: 01/03/23 08:29 Dose: 50 mg Multivitamins/Minerals (Cerovite Adv Formula Tab) 1 tab PO [facility] Stop: 01/26/23 08:59 Last Admin: 01/03/23 08:30 Dose: 1 tab Ondansetron HCl (Ondansetron Inj 2 Mg/Ml 2 Ml Vial) 4 mg IV Q6H PRN PRN Reason: Nausea Stop: 01/25/23 20:32 Pantoprazole Sodium (Pantoprazole 40 Mg Tab) 40 mg PO [facility] Stop: 01/26/23 08:59 Last Admin: 01/03/23 08:30 Dose: 40 mg Polyethylene Glycol (Polyethylene (Miralax) 17 Gm Pack) 17 gm PO DAILY PRN PRN Reason: Constipation Stop: 01/25/23 20:32
[2023-01-03] MEDS: ALTEPLASE, RECOMBINANT 10 MG in SYRINGE 50 ML IPL SCH (17:46)
[2023-01-03] MEDS: DORNASE ALFA 5 ML in SYRINGE 25 ML IPL SCH (19:08)
[2023-01-04] MEDS: HYDROCODONE/ACETAMOPHEN 5/325MG TAB PO PRN ×4 (03:49→22:25)
[2023-01-04] MEDS: ALTEPLASE, RECOMBINANT 10 MG in SYRINGE 50 ML IPL SCH ×2 (06:00→17:59)
[2023-01-04] MEDS: guaiFENesin SUGAR FREE 200 MG/10 ML UDC PO SCH ×5 (06:00→23:27)
[2023-01-04] MEDS ORDERED: KETOROLAC TROMETHAMINE 15 MG/ML VIAL IV ONE (06:22)
[2023-01-04] MEDS: DORNASE ALFA 5 ML in SYRINGE 25 ML IPL SCH ×2 (07:12→19:00)
[2023-01-04 07:33] LABS: BUN Creatinine Ratio 22.8 (10-20); Calcium 9.2 mg/dl (8.6-10.3); Est GFR (African American) 53.2 ml/min; Est GFR (Non-African American) 45.9 ml/min
[2023-01-04] MEDS: LIDOCAINE 5% 1 PATCH TD SCH (07:58)
[2023-01-04] MEDS: AMOXICILLIN/CLAVULANATE 875 MG TAB PO SCH (08:00)
[2023-01-04] MEDS: METOPROLOL TARTRATE 50 MG TAB PO SCH ×2 (08:00→20:13)
[2023-01-04] MEDS: MEGESTROL ACETATE 40 MG TAB PO SCH (08:01)
[2023-01-04] MEDS: FUROSEMIDE 20 MG TAB PO SCH (08:01)
[2023-01-04] MEDS: CEROVITE ADV FORMULA TAB PO SCH (08:01)
[2023-01-04] MEDS: DOXYCYCLINE HYCLATE 100 MG CAP PO SCH (08:01)
[2023-01-04] MEDS: AMIODARONE 200 MG TAB PO SCH (08:01)
[2023-01-04] MEDS: ATORVASTATIN 40 MG TAB PO SCH (08:01)
[2023-01-04] MEDS: PANTOprazole 40 MG TAB PO SCH (08:02)
[2023-01-04] MEDS: ALUMINUM PO SCH ×4 (08:02→20:14)
[2023-01-04] MEDS: [UNRECOGNIZED DRUG - OTHER] PO SCH ×4 (08:02→20:14)
[2023-01-04] MEDS: allopurinoL 300 MG TAB PO SCH (08:02)
[2023-01-04] MEDS: NYSTATIN PO SCH ×4 (08:02→20:14)
[2023-01-04] MEDS: LIDOCAINE VISCOUS PO SCH ×4 (08:02→20:14)
[2023-01-04] MEDS: MAGNESIUM PO SCH ×4 (08:02→20:14)
[2023-01-04 08:13] LABS: Hematocrit (blood only) 28.6 % (42.0-52.0); Mean Corpuscular Hemoglobin 26.2 pg (25.0-34.0); Mean Corpuscular Hgb Conc 31.5 g/dL (32.0-36.0); Mean Corpuscular Volume 83.1 fL (80.0-100.0); RDW Coefficient of Variation 24.9 % (11.5-14.5); RDW Standard Deviation 74.6 fL (36.4-46.3); Red Blood Count 3.44 M/uL (4.70-6.10)
[2023-01-04 08:16] LABS: Anisocytosis Present; Eosinophils # (auto) 0.01 K/uL (0-0.50); Eosinophils % (auto) 0.1 %; Hypochromasia Present; Hypogranular Neutrophils 1+; Immature Granulocytes # (auto) 0.04 K/uL (0.01-0.20); Immature Granulocytes % (auto) 0.3 %; Lymphocytes # (auto) 1.11 K/uL (1.2-3.4); Lymphocytes % (auto) 9.1 %; Monocytes # (auto) 3.37 K/uL (0.11-0.59); Monocytes % (auto) 27.5 %; Neutrophils # (auto) 7.71 K/uL (1.40-6.50); Nucleated RBC # (auto) 0.07 K/uL (0-0.12); Nucleated RBC % (auto) 0.6 %; Platelet Count 119 K/uL (130-400); Platelet Estimate Normal (Normal); Poikilocytosis Present; Polychromasia 1+; Schistocytes 1+; White Blood Count 12.24 K/ul (4.8-10.8)
--- NOTE | 2023-01-04 08:55 | XRay Report ---
XR chest 1V portable CLINICAL HISTORY: f/u TECHNIQUE: Single frontal radiograph of the chest was obtained. Comparison: Comparison is made to chest radiograph 01/03/2023 FINDINGS: Dual lead pacemaker is seen. Right pigtail catheter has been withdrawn but the pigtail still projects over the thoracic cavity. Cardiomegaly is noted. The aortic arch is calcified. There is elevation of the right hemidiaphragm with atelectasis. There is a moderate right pneumothorax measuring up to 36 mm, increased from prior and measured 17 mm. No significant residual effusion is seen. IMPRESSION: The right pigtail catheter remains in the pleural cavity although it has been withdrawn somewhat. The re is interval enlargement of a pneumothorax which now measures 36 mm in greatest diameter. No signif icant residual pleural effusion is seen. ACT 112: Negative or not required by law. Electronically signed by: Kvng Delatorre M.D. 01/04/2023 8:54 AM
[2023-01-04] MEDS ORDERED: ACETAMINOPHEN 1,000 MG/100 ML VIAL IV PRN (10:21)
--- NOTE | 2023-01-04 10:22 | Pulmonology Progress Note ---
Date of Service January 04, 2023 Assessment & Plan (1) Hypoxia: (2) Pneumonia: (3) Thrombocytopenia: (4) Loculated pleural effusion: (5) COPD with emphysema: Plan Impression: 72-year-old male with diffuse large B-cell lymphoma currently undergoing chemotherapy admitted with delirium and pneumonia now with right- sided pleural effusion. -- Loculated right-sided pleural effusion Worse compared to CT chest 12/27/2022 Status post pigtail catheter placement 01/03/23, MIST 2 protocol Follow-up micro and cyto -- Pneumonia Right lower lobe Continue with antibiotics -- Acute hypoxic respiratory failure Likely secondary to above Continue with O2 supplementation to keep oxygen saturation between 90-92% --COPD with emphysema Only on albuterol at home Patient does not seem to be in exacerbation -- Large B-cell lymphoma On chemotherapy Plan: Chest x-ray from today shows increase in size of the right-sided pneumothorax Pleural effusion is significantly improved. The chest x-ray was taken while the chest tube was clogged. That is likely the reason for increase in size of the pneumothorax I personally drained the chest tube with sterile saline. There was intermittent bubbling appreciated following that on the Diya drainage container. Platelets and H&H stable. Possibility of patient having normal ex-vacuo is also there. Continue with pain medications [id number] Case was discussed RN and at bedside. Creatinine is going up. Would recommend to hold diuretics. Case discussed with Dr. Benton Please note the above document was generated using voice recognition software. It may contain grammatical, syntax or spelling errors.Any formal questions or concerns about the content, text or information contained within the body of this dictation should be directly addressed to the provider for clarification. Admission and Anticipated Discharge Date Admission Date: December 26, 2022 Subjective Patient seen and examined at bedside. No acute distress He did complain of right-sided pain at the site of the chest tube. Denies any shortness of breath No headache, no nausea, no vomiting Fair appetite The chest tube seem to be clogged early in the morning which was flushed out. Review of Systems Review of Systems: All systems reviewed & are unremarkable except as noted in Subjective Physical Exam Physical Exam: Constitutional: No acute distress, frail-appearing HEENT: EOMI, PERRLA Respiratory system: Decreased air entry on the right side, no wheeze, no rhonchi, positive crackles right lower lobe CVS: S1-S2 positive, no murmurs or gallops Abdomen: Soft, nontender, nondistended, positive bowel sounds x4 Extremities: +2 pulses bilaterally radialis/ dorsalis pedis, no cyanosis, no edema Neuro: Awake alert oriented x3 Psych: Normal mood and affect G/U: No Choudhary Skin: no rashes, warm and dry Lymphatic: no cervical or axillary lymphadenopathy Results & Data Results & Data Vital Signs (Past 12 Hours) Vital Signs Temp Pulse Pulse Pulse Resp BP Pulse Ox 01/04/23 10:07 96 H 01/04/23 08:57 01/04/23 07:42 36.5 C 90 20 118/71 91 01/04/23 03:45 36.7 C 106 H 22 123/78 94 01/03/23 23:21 36.6 C 99 H 16 121/81 94 O2 Del Method O2 Flow Rate 01/04/23 10:07 01/04/23 08:57 Nasal Cannula 3 01/04/23 07:42 Nasal Cannula 3 01/04/23 03:45 Nasal Cannula 3 01/03/23 23:21 Nasal Cannula 3 Laboratory Results 01/04/23 06:44 01/04/23 06:44 PG Care Time/CCT Total # of Minutes Spent Total Time Spent with Patient: Total time spent is greater than 50% in coordination of care (as documented) at patient's floor/unit and/or counseling patient: Coding Level of Care Code 18365 SUB INP/OBS CARE 3/50MIN Diagnoses Hypoxia R09.02 Pneumonia J18.9 Thrombocytopenia D69.6 Loculated pleural effusion J90 COPD with emphysema J43.9
[2023-01-04] MEDS: SODIUM CHLORIDE 0.9% 1000ML 1,000 ML IV SCH ×2 (11:23→22:25)
--- NOTE | 2023-01-04 16:51 | Hospitalist Progress Note ---
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 He is being managed for the following: Acute metabolic and cephalopathy Likely secondary to excessive opioid use/polypharmacy -CT head, CTA head/neck without acute findings. Scheduled Flexeril changed to as needed Minimize narcotics as able Mentation back to baseline No more drowsiness and/or confusion Remains generally weak but otherwise no more confusion Hypoxia RLL pneumonia, previously noted on imaging CT Chest:Underlying emphysema, more significant in the lung apices. Mild right- sided pleural effusion with right lower lobe atelectasis versus residual infiltrate. Focal interstitial changes versus residual pneumonitis in the left lower lobe. No pneumothorax. Hypoxia likely multifactorial-pneumonia, overmedication with narcotics Currently on Augmentin, doxycycline--plan was to complete 7-day course Continues to have R-sided chest pain pleuritic, repeated chest Xray (01/01), and obtained procalcitonin (as WBC elevated) CXR c/w with R sided pl. effusion - reviewed personally Started on small dose lasix as thoracentesis difficult given his thrombocytopenia Right pleural effusion is not getting any better Pulmonary consulted-appreciate input and recommendation Status post right thoracentesis-loculated effusion and is status post chest tube placement Will have repeat CT in about 3 days and then depending on the fluid status the tube will be taken out Pleural fluid is exudative,Gram stain of the fluid remains unremarkable, AFB is pending Pathology pending Paroxysmal A fib Not a candidate Anticoagulation with significant thrombocytopenia/Bleeding risk/Recurrent falls Continue metoprolol, amiodarone Heart rate is controlled Diffuse B Cell Lymphoma of head/neck:s/p 1 cycle of RCEOP (11/18/22 - 11/21/22) Chronic myelomonocytic leukemia Chronic Thrombocytopenia Transfusion reaction to platelets transfusion: Following with Dr. Rojas - randolph on hold for now Soft tissue neck CT with necrotic lymph nodes are further decreased in size from prior exam Continue allopurinol for tumor lysis syndrome prophylaxis Planned chemotherapy as outpatient as soon as possible. Needs follow-up with oncology upon discharge Chronic thrombocytopenia H/O ITP No acute bleeding issues Platelets count went down to 24 on eighth and 30th on ninth of this month Patient received 2 units of platelet pheresis and the platelet count is 79 as of 01/03/2023 S/p thoracentesis on 01/03/2023 Platelets have increased to 119 Severe protein calorie malnutrition:Significant weight loss > 30 pounds since 08/17. Continue Megace Poor oral intake BMI 18 Encouraged to increase oral intake Frequent falls: Recent R hip fx s/p IM nail by Dr. Null 10/27/22 Fall precautions Continue PT OT Needs placement Advised to schedule for outpatient orthopedics follow-up upon discharge PAD: ABIs done on 03/17 showed R 0.87 and L 0.85 at rest concerning for occlusive disease to b/l SFA and tibial artery along with L iliac disease. Arterial Doppler:Moderate atherosclerotic plaque within the bilateral lower extremities. Suspected occlusion of the distal left posterior tibial artery, otherwise patent vessels. Monophasic flow within the bilateral calf vessels Continue statin Heel wounds-POA wound care nurse consulted Supportive care Waffle boots. H/o Dysphagia Video swallow:few episodes of trace silent aspiration with the thin liquid barium only.= Aspiration precautions Appreciate speech therapy recommendations Continue minced and moist, easy to chew diet with thin liquids Magic mouthwash as needed SSS S/P PPM in 2019 COPD: c/w home inhalers. no signs of exacerbation DVT Px: SCDs Re: Thrombocytopenia Code Status: DNR/DNI Disposition Needs placement Admission and Anticipated Discharge Date Admission Date: December 26, 2022 Subjective 01/03/2023 The patient was seen and examined in telemetry unit in presence of the He has been feeling much better Denies any shortness of breath or chest pain at rest Remains generally weak and lethargic 01/04/2023 The patient was seen and examined in telemetry unit He has been complaining of pain in the right lower chest at the site of chest tube with minimal shortness of breath at rest Denies any nausea and or vomiting Been generally weak and lethargic Review of Systems Review of Systems: All systems reviewed and are unremarkable except as noted below Physical Exam Physical Exam: Lying in bed with some discomfort due to chest tube and slight lateral chest wall pain Constitutional: + ill appearing and average body habitus Eyes: PERRL, conjunctivae normal, anicteric sclerae ENMT: external ear and nose normal, oropharynx normal Neck: trachea midline, no thyromegaly Respiratory: no respiratory distress Auscultation: + diminished lung sounds and + crackles (Bibasilar crackles with decreased breath sounds on the right); no wheezes Cardiovascular: Rate/Rhythm: regular rate and regular rhythm; not tachycardic Heart Sounds: normal S1 and normal S2; no murmur Extremities: no edema Gastrointestinal (Abdomen): Inspection/Auscultation: abdomen not distended Percussion/Palpation: abdomen soft; abdomen nontender Musculoskeletal: No acute arthritis involving any joint Neurologic: Alert, awake and oriented x3. Lymphatic: no cervical or axillary lymphadenopathy Results & Data Results & Data Vital Signs (Past 12 Hours) Vital Signs Temp Pulse Pulse Resp BP Pulse Ox Pulse Ox 01/04/23 15:22 01/04/23 15:04 34.2 C L 19 96/68 L 01/04/23 14:13 101/61 01/04/23 13:11 94 01/04/23 11:20 84 20 93/53 L 01/04/23 11:10 36.4 C L 84 7 L 97/61 L 95 01/04/23 10:07 96 H 01/04/23 08:57 01/04/23 07:42 36.5 C 90 20 118/71 91 O2 Del Method O2 Del Method O2 Flow Rate 01/04/23 15:22 2 01/04/23 15:04 01/04/23 14:13 01/04/23 13:11 Nasal Cannula 01/04/23 11:20 Nasal Cannula 3 01/04/23 11:10 Nasal Cannula 3 01/04/23 10:07 01/04/23 08:57 Nasal Cannula 3 01/04/23 07:42 Nasal Cannula 3 Laboratory Results Short CBC 01/04/23 Range/Units 06:44 WBC 12.24 H (4.8-10.8) K/ul Hgb 9.0 L (14.0-18.0) g/dl Hct 28.6 L (42.0-52.0) % Plt Count 119 L D (130-400) K/uL BMP 01/04/23 06:44 Sodium 136 Potassium 4.0 Chloride 102 Carbon Dioxide 22 BUN 34 H Creatinine 1.49 H D Glucose 119 H Calcium 9.2 Medications Administered Current Inpatient Medications Hydrocodone Bitart/Acetaminophen (Hydrocodone/Acetamophen 5/325mg Tab) 1 tab PO Q6H PRN PRN Reason: Moderate to Severe Pain Stop: 01/14/23 12:08 Last Admin: 01/04/23 16:36 Dose: 1 tab Albuterol (Albuterol Hfa 8 Gm Inhaler) 1 puffs INH QID PRN PRN Reason: sob Stop: 01/25/23 19:41 Allopurinol (Allopurinol 300 Mg Tab) 300 [facility] [place] Stop: 01/26/23 08:59 Last Admin: 01/04/23 08:02 Dose: 300 mg Amiodarone HCl (Amiodarone 200 Mg Tab) 200 mg PO DAILY [facility] Stop: 01/26/23 08:59 Last Admin: 01/04/23 08:01 Dose: 200 mg Amoxicillin/Clavulanate Potassium (Amoxicillin/Clavulanate 875 Mg Tab) 1 tab PO BIDM [facility] Stop: 01/04/23 16:59 Last Admin: 01/04/23 08:00 Dose: 1 tab Atorvastatin Calcium (Atorvastatin 40 Mg Tab) 40 mg PO QAM [facility] Stop: 01/26/23 08:59 Last Admin: 01/04/23 08:01 Dose: 40 mg Nystatin 30 ml/ Lidocaine HCl 30 ml/ Al Hydrox/Mg Hydrox/Simethicone 30 ml/ [employer] 1 each 0 ml PO QID [facility] Stop: 01/27/23 12:59 Last Admin: 01/04/23 16:36 Dose: 10 ml Cyclobenzaprine HCl (Cyclobenzaprine Hcl 10 Mg Tab) 10 mg PO BID PRN PRN Reason: muscle spasms Stop: 01/25/23 20:59 Doxycycline Hyclate (Doxycycline Hyclate 100 Mg Cap) 100 mg PO BID [facility] Stop: 01/04/23 20:59 Last Admin: 01/04/23 08:01 Dose: 100 mg Furosemide (Furosemide 20 Mg Tab) 20 mg PO BID17 [facility] Stop: 01/31/23 16:59 Last Admin: 01/04/23 08:01 Dose: 20 mg Guaifenesin (Guaifenesin Sugar Free 200 Mg/10 Ml Udc) 200 mg PO Q6H [facility] Stop: 01/31/23 11:29 Last Admin: 01/04/23 12:39 Dose: Not Given Hydromorphone HCl (Hydromorphone Inj 0.5 Mg/0.5 Ml Syr) 0.25 mg IV Q6H PRN PRN Reason: Pain Stop: 01/18/23 10:35 Alteplase, Recombinant 10 mg/ (Syringe) 60 mls @ 0 mls/hr IPL Q12H [facility]; Protocol Stop: 01/06/23 06:01 Last Admin: 01/04/23 06:00 Dose: 60 mls/hr Dornase Keon 5 ml/ Syringe 30 mls @ 0 mls/hr IPL Q12H [facility]; Protocol Stop: 01/06/23 06:01 Last Admin: 01/04/23 07:12 Dose: 30 mls/hr Acetaminophen (Ofirmev) 1,000 mg in 100 mls @ 400 mls/hr IV Q12 PRN PRN Reason: pain Stop: 01/07/23 10:20 Sodium Chloride (Nss 1000ml) 1,000 mls @ 80 mls/hr IV .[id number] [facility] Stop: 02/03/23 10:44 Last Admin: 01/04/23 11:23 Dose: 80 mls/hr Lidocaine (Lidocaine 5% 1 Patch) 1 patch TD [facility] [place] Stop: 02/03/23 06:24 Last Admin: 01/04/23 07:58 Dose: Not Given Megestrol Acetate (Megestrol Acetate 40 Mg Tab) 40 mg PO QAM [facility] Stop: 01/26/23 08:59 Last Admin: 01/04/23 08:01 Dose: 40 mg Metoprolol Tartrate (Metoprolol Tartrate 50 Mg Tab) 50 mg PO BID [facility] Stop: 01/26/23 08:59 Last Admin: 01/04/23 08:00 Dose: 50 mg Miscellaneous (Remove Lidoderm Patch) 1 each N/A DAILY@2100 [facility] Stop: 02/03/23 20:59 Multivitamins/Minerals (Cerovite Adv Formula Tab) 1 tab PO [facility] Stop: 01/26/23 08:59 Last Admin: 01/04/23 08:01 Dose: 1 tab Ondansetron HCl (Ondansetron Inj 2 Mg/Ml 2 Ml Vial) 4 mg IV Q6H PRN PRN Reason: Nausea Stop: 01/25/23 20:32 Pantoprazole Sodium (Pantoprazole 40 Mg Tab) 40 mg PO [facility] Stop: 01/26/23 08:59 Last Admin: 01/04/23 08:02 Dose: 40 mg Polyethylene Glycol (Polyethylene (Miralax) 17 Gm Pack) 17 gm PO DAILY PRN PRN Reason: Constipation Stop: 01/25/23 20:32
[2023-01-05] MEDS: HYDROCODONE/ACETAMOPHEN 5/325MG TAB PO PRN ×3 (05:29→20:33)
[2023-01-05] MEDS: guaiFENesin SUGAR FREE 200 MG/10 ML UDC PO SCH ×4 (05:46→20:33)
[2023-01-05] MEDS: ALTEPLASE, RECOMBINANT 10 MG in SYRINGE 50 ML IPL SCH (06:10)
[2023-01-05] MEDS: DORNASE ALFA 5 ML in SYRINGE 25 ML IPL SCH (07:16)
[2023-01-05 07:59] LABS: BUN Creatinine Ratio 24.9 (10-20); Calcium 7.9 mg/dl (8.6-10.3); Est GFR (African American) 44.4 ml/min; Est GFR (Non-African American) 38.3 ml/min; Potassium 3.6 mmol/L (3.5-5.1)
[2023-01-05 08:08] LABS: Hematocrit (blood only) 21.4 % (42.0-52.0); Hemoglobin 6.5 g/dl (14.0-18.0); Mean Corpuscular Hemoglobin 25.7 pg (25.0-34.0); Mean Corpuscular Hgb Conc 30.4 g/dL (32.0-36.0); Mean Corpuscular Volume 84.6 fL (80.0-100.0); Platelet Count 126 K/uL (130-400); RDW Coefficient of Variation 25.1 % (11.5-14.5); RDW Standard Deviation 76.9 fL (36.4-46.3); Red Blood Count 2.53 M/uL (4.70-6.10); White Blood Count 11.35 K/ul (4.8-10.8)
[2023-01-05 08:15] LABS: Anisocytosis Present; Eosinophils # (auto) 0.18 K/uL (0-0.50); Eosinophils % (auto) 1.6 %; Immature Granulocytes # (auto) 0.04 K/uL (0.01-0.20); Immature Granulocytes % (auto) 0.4 %; Lymphocytes # (auto) 2.15 K/uL (1.2-3.4); Lymphocytes % (auto) 18.9 %; Monocytes # (auto) 2.73 K/uL (0.11-0.59); Monocytes % (auto) 24.1 %; Neutrophils # (auto) 6.25 K/uL (1.40-6.50); Poikilocytosis Present; Polychromasia 1+
[2023-01-05] MEDS: LIDOCAINE 5% 1 PATCH TD SCH (08:20)
[2023-01-05] MEDS: AMIODARONE 200 MG TAB PO SCH (08:20)
[2023-01-05] MEDS: ATORVASTATIN 40 MG TAB PO SCH (08:20)
[2023-01-05] MEDS: allopurinoL 300 MG TAB PO SCH (08:20)
[2023-01-05] MEDS: METOPROLOL TARTRATE 50 MG TAB PO SCH ×2 (08:20→20:33)
[2023-01-05] MEDS: PANTOprazole 40 MG TAB PO SCH (08:21)
[2023-01-05] MEDS: MAGNESIUM PO SCH ×4 (08:21→20:32)
[2023-01-05] MEDS: ALUMINUM PO SCH ×4 (08:21→20:32)
[2023-01-05] MEDS: NYSTATIN PO SCH ×4 (08:21→20:32)
[2023-01-05] MEDS: LIDOCAINE VISCOUS PO SCH ×4 (08:21→20:32)
[2023-01-05] MEDS: MEGESTROL ACETATE 40 MG TAB PO SCH (08:21)
[2023-01-05] MEDS: CEROVITE ADV FORMULA TAB PO SCH (08:21)
[2023-01-05] MEDS: [UNRECOGNIZED DRUG - OTHER] PO SCH ×4 (08:21→20:32)
[2023-01-05] MEDS ORDERED: SODIUM CHLORIDE 0.9% 250 ML IV PRN (08:26)
[2023-01-05] MEDS: HYDROmorphone INJ 0.5 MG/0.5 ML SYR IV PRN (08:29)
[2023-01-05] MEDS ORDERED: dexAMETHasone 8 MG in SYRINGE 0 ML IV ONE (09:20)
[2023-01-05] MEDS ORDERED: diphenhydrAMINE Capsule 25 MG CAP PO ONE (09:20)
[2023-01-05] MEDS ORDERED: ACETAMINOPHEN 325 MG TAB PO ONE (09:21)
--- NOTE | 2023-01-05 09:22 | Pulmonology Progress Note ---
Date of Service January 05, 2023 Assessment & Plan (1) Hypoxia: (2) Pneumonia: (3) Thrombocytopenia: (4) Loculated pleural effusion: (5) COPD with emphysema: Plan Impression: 72-year-old male with diffuse large B-cell lymphoma currently undergoing chemotherapy admitted with delirium and pneumonia now with right- sided pleural effusion. -- Loculated right-sided pleural effusion Worse compared to CT chest 12/27/2022 Status post pigtail catheter placement 01/03/23, MIST 2 protocol Follow-up micro and cyto -- Pneumonia Right lower lobe Continue with antibiotics -- Acute hypoxic respiratory failure Likely secondary to above Continue with O2 supplementation to keep oxygen saturation between 90-92% --COPD with emphysema Only on albuterol at home Patient does not seem to be in exacerbation -- Large B-cell lymphoma On chemotherapy Plan: Chest x-ray from today shows improvement in the loculated effusion Patient's hemoglobin did go down to 6.5 today, he had schistocytes on the peripheral smear yesterday. Patient is getting mist 2 protocol, the drainage from the chest tube is serosanguineous. I will stop MIST 2 protocol. Patient is getting 2 units of PRBC. If the fluid is not clearing up then VATS will be considered. Case was discussed at bedside. Case discussed with Dr. Benton Please note the above document was generated using voice recognition software. It may contain grammatical, syntax or spelling errors.Any formal questions or concerns about the content, text or information contained within the body of this dictation should be directly addressed to the provider for clarification. Admission and Anticipated Discharge Date Admission Date: December 26, 2022 Subjective Patient seen and examined at bedside. No acute distress, no adverse events overnight Still complains of pain at the site of the chest tube which is better than before He has been getting pain medications. Denies any nausea or vomiting Poor appetite. Shortness of breath is improved. No headache. Review of Systems Review of Systems: All systems reviewed & are unremarkable except as noted in Subjective Physical Exam Physical Exam: Constitutional: No acute distress, frail-appearing HEENT: EOMI, PERRLA Respiratory system: Decreased air entry on the right side, no wheeze, no rhonchi, positive crackles right lower lobe CVS: S1-S2 positive, no murmurs or gallops Abdomen: Soft, nontender, nondistended, positive bowel sounds x4 Extremities: +2 pulses bilaterally radialis/ dorsalis pedis, no cyanosis, no edema Neuro: Awake alert oriented x3 Psych: Normal mood and affect G/U: No Choudhary Skin: no rashes, warm and dry Lymphatic: no cervical or axillary lymphadenopathy Results & Data Results & Data Vital Signs (Past 12 Hours) Vital Signs Temp Pulse Pulse Resp BP Pulse Ox O2 Del Method 01/05/23 08:00 85 01/05/23 07:50 36.9 C 83 18 96 Nasal Cannula 01/05/23 04:00 36.8 C 79 16 105/61 96 Nasal Cannula 01/04/23 23:51 87 01/04/23 22:52 36.7 C 85 20 96/73 L 92 Nasal Cannula O2 Flow Rate 01/05/23 08:00 01/05/23 07:50 01/05/23 04:00 3 01/04/23 23:51 01/04/23 22:52 3 Laboratory Results 01/05/23 07:27 01/05/23 07:27 PG Care Time/CCT Total # of Minutes Spent Total Time Spent with Patient: Total time spent is greater than 50% in coordination of care (as documented) at patient's floor/unit and/or counseling patient: Coding Level of Care Code 30392 SUB INP/OBS CARE 3/50MIN Diagnoses Hypoxia R09.02 Pneumonia J18.9 Thrombocytopenia D69.6 Loculated pleural effusion J90 COPD with emphysema J43.9
[2023-01-05] MEDS ORDERED: TRANEXAMIC ACID / 0.7% NACL 1,000 MG/100 ML BAG IV ONE (10:15)
[2023-01-05 10:51] LABS: Fibrinogen 417 mg/dl (184-400); INR 1.2 (0.9-1.1); Partial Thromboplastin Time 28.1 Seconds (21.0-31.0); Prothrombin Time 12.3 Seconds (9.0-12.0)
--- NOTE | 2023-01-05 11:01 | XRay Report ---
XR chest 1V portable CLINICAL HISTORY: f/u TECHNIQUE: Single frontal radiograph of the chest was obtained. Comparison: Comparison is made to chest radiograph 01/04/2023 FINDINGS: Dual lead pacemaker is seen. Stable right pleural catheter. Calcified aortic knob is seen. The lungs are clear. No significant residual pneumothorax is seen. A skinfold is noted which may have accounted for appearance of pneumothorax on prior exam. IMPRESSION: No significant residual pneumothorax is seen on today's exam. Satisfactory position of pigtail cathet er. ACT 112: Negative or not required by law. Electronically signed by: Kvng Delatorre M.D. 01/05/2023 11:00 AM
[2023-01-05 11:22] LABS: Appearance Pleural Fluid Bloody; Color Pleural Fluid Red; RBC Pleural Fluid Auto 1490000 /uL; Source Pleural Fluid Right Lung; WBC Pleural Fluid Auto 71260 /uL
[2023-01-05 11:53] LABS: Eosinophils, Fluid 1 %; Lymphocytes, Fluid 6 %; Mono,Macrophage,Mesothelial 30 %; Neutrophils, Fluid 63 %
--- NOTE | 2023-01-05 14:48 | Hospitalist Progress Note ---
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 He is being managed for the following: Acute metabolic and cephalopathy Likely secondary to excessive opioid use/polypharmacy -CT head, CTA head/neck without acute findings. Scheduled Flexeril changed to as needed Minimize narcotics as able Mentation back to baseline No more drowsiness and/or confusion Remains generally weak but otherwise no more confusion Hypoxia: Loculated right pleural effusion RLL pneumonia, previously noted on imaging CT Chest:Underlying emphysema, more significant in the lung apices. Mild right- sided pleural effusion with right lower lobe atelectasis versus residual infiltrate. Focal interstitial changes versus residual pneumonitis in the left lower lobe. No pneumothorax. Hypoxia likely multifactorial-pneumonia, overmedication with narcotics Currently on Augmentin, doxycycline--plan was to complete 7-day course Continues to have R-sided chest pain pleuritic, repeated chest Xray (01/01), and obtained procalcitonin (as WBC elevated) CXR c/w with R sided pl. effusion - reviewed personally Started on small dose lasix as thoracentesis difficult given his thrombocytopenia Right pleural effusion is not getting any better Pulmonary consulted-appreciate input and recommendation Status post right thoracentesis-loculated effusion and is status post chest tube placement Will have repeat CT in about 3 days and then depending on the fluid status the tube will be taken out Pleural fluid is exudative,Gram stain of the fluid remains unremarkable, AFB is pending Pathology of the fluid did not show any malignancy Drainage is bloody but not tierra blood in the chest x-ray showing improvement of the fluid Diffuse B Cell Lymphoma of head/neck:s/p 1 cycle of RCEOP (11/18/22 - 11/21/22) Chronic myelomonocytic leukemia Chronic Thrombocytopenia Transfusion reaction to platelets transfusion: Following with Dr. Rojas - chemo on hold for now Soft tissue neck CT with necrotic lymph nodes are further decreased in size from prior exam Continue allopurinol for tumor lysis syndrome prophylaxis Planned chemotherapy as outpatient as soon as possible. Acute anemia-hemoglobin dropped to 6.5 without any active bleeding-could be secondary to illness/dilution/hemolysis/lymphoma Will receive 2 units of blood transfusion today-if hemoglobin does not show much improvement will do further testing to rule out any bleeding Pretreatment with Benadryl, Tylenol and dexamethasone given Paroxysmal A fib Not a candidate Anticoagulation with significant thrombocytopenia/Bleeding risk/Recurrent falls Continue metoprolol, amiodarone Heart rate is controlled Chronic thrombocytopenia H/O ITP No acute bleeding issues Platelets count went down to 24 on eighth and 30th on ninth of this month Patient received 2 units of platelet pheresis and the platelet count is 79 as of 01/03/2023 S/p thoracentesis on 01/03/2023 Platelets have increased to 119 Severe protein calorie malnutrition:Significant weight loss > 30 pounds since 08/17. Continue Megace Poor oral intake BMI 18 Encouraged to increase oral intake Frequent falls: Recent R hip fx s/p IM nail by Dr. Null 10/27/22 Fall precautions Continue PT OT Needs placement Advised to schedule for outpatient orthopedics follow-up upon discharge PAD: ABIs done on 03/17 showed R 0.87 and L 0.85 at rest concerning for occlusive disease to b/l SFA and tibial artery along with L iliac disease. Arterial Doppler:Moderate atherosclerotic plaque within the bilateral lower extremities. Suspected occlusion of the distal left posterior tibial artery, otherwise patent vessels. Monophasic flow within the bilateral calf vessels Continue statin Heel wounds-POA wound care nurse consulted Supportive care Waffle boots. H/o Dysphagia Video swallow:few episodes of trace silent aspiration with the thin liquid barium only.= Aspiration precautions Appreciate speech therapy recommendations Continue minced and moist, easy to chew diet with thin liquids Magic mouthwash as needed SSS S/P PPM in 2019 COPD: c/w home inhalers. no signs of exacerbation DVT Px: SCDs Re: Thrombocytopenia Code Status: DNR/DNI Disposition Needs placement Discussed with the and the patient Admission and Anticipated Discharge Date Admission Date: December 26, 2022 Subjective 01/03/2023 The patient was seen and examined in telemetry unit in presence of the He has been feeling much better Denies any shortness of breath or chest pain at rest Remains generally weak and lethargic 01/04/2023 The patient was seen and examined in telemetry unit He has been complaining of pain in the right lower chest at the site of chest tube with minimal shortness of breath at rest Denies any nausea and or vomiting Been generally weak and lethargic 01/05/2023 The patient was seen and examined in telemetry unit He has been complaining of pain in the right side of the chest where the tube was placed Complains to have more weakness but denies any increasing shortness of breath at rest Has some nonspecific abdominal discomfort Review of Systems Review of Systems: All systems reviewed and are unremarkable except as noted below Physical Exam Physical Exam: Lying in bed with some discomfort due to chest tube and slight lateral chest wall pain Constitutional: + ill appearing and average body habitus Eyes: PERRL, conjunctivae normal, anicteric sclerae ENMT: external ear and nose normal, oropharynx normal Neck: trachea midline, no thyromegaly Respiratory: no respiratory distress Auscultation: + diminished lung sounds and + crackles (Bibasilar crackles with decreased breath sounds on the right); no wheezes Cardiovascular: Rate/Rhythm: regular rate and regular rhythm; not tachycardic Heart Sounds: normal S1 and normal S2; no murmur Extremities: no edema Gastrointestinal (Abdomen): Inspection/Auscultation: abdomen not distended Percussion/Palpation: abdomen soft; abdomen nontender Musculoskeletal: No acute arthritis involving any of the joints Neurologic: Alert, awake and oriented x3. Generally very weak and lethargic Lymphatic: no cervical or axillary lymphadenopathy Results & Data Results & Data Vital Signs (Past 12 Hours) Vital Signs Temp Pulse Pulse Resp BP BP Pulse Ox 01/05/23 13:50 36.7 C 80 16 111/69 92 01/05/23 12:21 82 14 103/65 96 01/05/23 12:01 36.7 C 87 16 105/66 98 01/05/23 11:31 36.7 C 86 14 103/65 99 01/05/23 11:16 36.7 C 89 16 105/68 98 01/05/23 11:00 36.7 C 88 16 101/65 97 01/05/23 08:00 01/05/23 08:00 85 01/05/23 07:50 36.9 C 83 18 96 01/05/23 04:00 36.8 C 79 16 105/61 96 O2 Del Method O2 Flow Rate 01/05/23 13:50 01/05/23 12:21 3 01/05/23 12:01 01/05/23 11:31 3 01/05/23 11:16 01/05/23 11:00 01/05/23 08:00 Nasal Cannula 3 01/05/23 08:00 01/05/23 07:50 Nasal Cannula 01/05/23 04:00 Nasal Cannula 3 Laboratory Results Short CBC 01/05/23 Range/Units 07:27 WBC 11.35 H (4.8-10.8) K/ul Hgb 6.5 L* (14.0-18.0) g/dl Hct 21.4 L (42.0-52.0) % Plt Count 126 L (130-400) K/uL BMP 01/05/23 07:27 Sodium 137 Potassium 3.6 Chloride 108 H Carbon Dioxide 22 BUN 43 H Creatinine 1.73 H Glucose 101 H Calcium 7.9 L Medications Administered Current Inpatient Medications Hydrocodone Bitart/Acetaminophen (Hydrocodone/Acetamophen 5/325mg Tab) 1 tab PO Q6H PRN PRN Reason: Moderate to Severe Pain Stop: 01/14/23 12:08 Last Admin: 01/05/23 12:35 Dose: 1 tab Albuterol (Albuterol Hfa 8 Gm Inhaler) 1 puffs INH QID PRN PRN Reason: sob Stop: 01/25/23 19:41 Allopurinol (Allopurinol 300 Mg Tab) 300 mg PO QAM [facility] Stop: 01/26/23 08:59 Last Admin: 01/05/23 08:20 Dose: 300 mg Amiodarone HCl (Amiodarone 200 Mg Tab) 200 mg PO DAILY [facility] Stop: 01/26/23 08:59 Last Admin: 01/05/23 08:20 Dose: 200 mg Atorvastatin Calcium (Atorvastatin 40 Mg Tab) 40 mg PO QAM [facility] Stop: 01/26/23 08:59 Last Admin: 01/05/23 08:20 Dose: 40 mg Nystatin 30 ml/ Lidocaine HCl 30 ml/ Al Hydrox/Mg Hydrox/Simethicone 30 ml/ [employer] 1 each 0 ml PO QID [facility] Stop: 01/27/23 12:59 Last Admin: 01/05/23 12:31 Dose: 5 ml Cyclobenzaprine HCl (Cyclobenzaprine Hcl 10 Mg Tab) 10 mg PO BID PRN PRN Reason: muscle spasms Stop: 01/25/23 20:59 Furosemide (Furosemide 20 Mg Tab) 20 mg PO BID17 [facility] Stop: 01/31/23 16:59 Last Admin: 01/04/23 08:01 Dose: 20 mg Guaifenesin (Guaifenesin Sugar Free 200 Mg/10 Ml Udc) 200 mg PO Q6H [facility] Stop: 01/31/23 11:29 Last Admin: 01/05/23 12:31 Dose: 200 mg Hydromorphone HCl (Hydromorphone Inj 0.5 Mg/0.5 Ml Syr) 0.25 mg IV Q6H PRN PRN Reason: Pain Stop: 01/18/23 10:35 Last Admin: 01/05/23 08:29 Dose: 0.25 mg Acetaminophen (Ofirmev) 1,000 mg in 100 mls @ 400 mls/hr IV Q12 PRN PRN Reason: pain Stop: 01/07/23 10:20 Sodium Chloride (Nss 1000ml) 1,000 mls @ 80 mls/hr IV .[id number] [facility] Stop: 02/03/23 10:44 Last Infusion: 01/05/23 11:12 Dose: Infused Sodium Chloride (Nss) 250 mls @ 15 mls/hr IV .[id number] PRN PRN Reason: For Transfusion Duration Stop: 01/05/23 18:26 Lidocaine (L[facility]ocaine 5% 1 Patch) [facility]: 02/03/23 06:24 Last Admin: 01/05/23 08:20 Dose: Not Given Megestrol Acetate (Megestrol Acetate 40 Mg Tab) [facility] Stop: 01/26/23 08:59 Last Admin: 01/05/23 08:21 Dose: 40 mg Metoprolol Tartrate (Metoprolol Tartrate 50 Mg Tab) 50 mg PO BID [facility] Stop: 01/26/23 08:59 Last Admin: 01/05/23 08:20 Dose: 50 mg Miscellaneous (Remove Lidoderm Patch) 1 each N/A DAILY@2100 [facility] Stop: 02/03/23 20:59 Last Admin: 01/04/23 20:13 Dose: Not Given Multivitamins/Minerals (Cerovite Adv Formula Tab) 1 tab PO QAM [facility] Stop: 01/26/23 08:59 Last Admin: 01/05/23 08:21 Dose: 1 tab Ondansetron HCl (Ondansetron Inj 2 Mg/Ml 2 Ml Vial) 4 mg IV Q6H PRN PRN Reason: Nausea Stop: 01/25/23 20:32 Pantoprazole Sodium (Pantoprazole 40 Mg Tab) [facility]: 01/26/23 08:59 Last Admin: 01/05/23 08:21 Dose: 40 mg Polyethylene Glycol (Polyethylene (Miralax) 17 Gm Pack) 17 gm PO DAILY PRN PRN Reason: Constipation Stop: 01/25/23 20:32
[2023-01-05] MEDS: SODIUM CHLORIDE 0.9% 1000ML 1,000 ML IV SCH (16:47)
[2023-01-06] MEDS: HYDROmorphone INJ 0.5 MG/0.5 ML SYR IV PRN (00:16)
[2023-01-06] MEDS: SODIUM CHLORIDE 0.9% 1000ML 1,000 ML IV SCH ×2 (04:34→16:25)
[2023-01-06] MEDS: HYDROCODONE/ACETAMOPHEN 5/325MG TAB PO PRN ×3 (04:40→18:11)
[2023-01-06] MEDS: guaiFENesin SUGAR FREE 200 MG/10 ML UDC PO SCH ×4 (06:06→23:21)
--- NOTE | 2023-01-06 07:28 | Pulmonology Progress Note ---
Date of Service January 06, 2023 Assessment & Plan (1) Hypoxia: (2) Pneumonia: (3) Thrombocytopenia: (4) Loculated pleural effusion: (5) COPD with emphysema: Plan Impression: 72-year-old male with diffuse large B-cell lymphoma currently undergoing chemotherapy admitted with delirium and pneumonia now with right- sided pleural effusion. -- Loculated right-sided pleural effusion Worse compared to CT chest 12/27/2022 Status post pigtail catheter placement 01/03/23, got 2 days MIST 2 protocol Micro shows no growth till date Pathology was negative for malignancy, specimen did consist blood -- Pneumonia Right lower lobe Continue with antibiotics -- Acute hypoxic respiratory failure Likely secondary to above Continue with O2 supplementation to keep oxygen saturation between 90-92% --COPD with emphysema Only on albuterol at home Patient does not seem to be in exacerbation -- Acute blood loss anemia Did get 2 units PRBC on 01/05/2023 I did give the patient tranexamic acid 2 g IV and lavage the right-sided pleural space with cold saline on 01/05/2023 -- Large B-cell lymphoma On chemotherapy Plan: Chest x-ray from today shows retraction of the pigtail catheter. It is still in the pleural space. No right-sided pleural effusion, no pneumothorax. Hemoglobin was 9.5 today. Drainage from the chest tube is serous. Patient did only 100 mL overnight. Plan will be to take the chest tube out. Case was discussed and RN at bedside. Case discussed with Dr. Benton Please note the above document was generated using voice recognition software. It may contain grammatical, syntax or spelling errors.Any formal questions or concerns about the content, text or information contained within the body of this dictation should be directly addressed to the provider for clarification. Admission and Anticipated Discharge Date Admission Date: December 26, 2022 Subjective Patient seen and examined at bedside. No acute distress, no adverse events overnight He got 2 units of PRBC yesterday At the time of examination he was doing well Chest tube was draining serous fluid. This complain of mild chest discomfort No shortness of breath, no headache. Has been afebrile Review of Systems Review of Systems: All systems reviewed & are unremarkable except as noted in Subjective Physical Exam Physical Exam: Constitutional: No acute distress, frail-appearing HEENT: EOMI, PERRLA Respiratory system: Decreased air entry on the right side, no wheeze, no rhonchi, mild crackles right lower lobe CVS: S1-S2 positive, no murmurs or gallops Abdomen: Soft, nontender, nondistended, positive bowel sounds x4 Extremities: +2 pulses bilaterally radialis/ dorsalis pedis, no cyanosis, no edema Neuro: Awake alert oriented x3 Psych: Normal mood and affect G/U: No Choudhary Skin: no rashes, warm and dry Lymphatic: no cervical or axillary lymphadenopathy Results & Data Results & Data Vital Signs (Past 12 Hours) Vital Signs Temp Pulse Resp BP Pulse Ox O2 Del Method O2 Flow Rate 01/06/23 03:37 36.7 C 91 H 18 137/65 94 Nasal Cannula 3 01/05/23 22:43 36.7 C 84 18 118/73 92 Room Air Laboratory Results 01/06/23 07:28 01/06/23 07:28 PG Care Time/CCT Total # of Minutes Spent Total Time Spent with Patient: Total time spent is greater than 50% in coordination of care (as documented) at patient's floor/unit and/or counseling patient: Coding Level of Care Code 20575 SUB INP/OBS CARE 3/50MIN Diagnoses Hypoxia R09.02 Pneumonia J18.9 Thrombocytopenia D69.6 Loculated pleural effusion J90 COPD with emphysema J43.9
--- NOTE | 2023-01-06 08:04 | XRay Report ---
XR chest 1V portable HISTORY: Follow pneumothorax. COMPARISON: Chest 01/05/2023. FINDINGS: No pneumothorax. Stable linear scarlike densities and volume loss again noted within the ri ght hemithorax. The left lung is essentially clear. No evidence for pulmonary edema. Is left-sided du al-chamber pacemaker. The heart is normal in size. No pleural effusions. The right basilar pleural ca theter has been pulled back and now resides within the right lateral costophrenic sulcus. There are f ew skinfolds noted within the upper lung zones. IMPRESSION: 1. The right basilar pleural catheter has been pulled back and now resides within the right lateral c ostophrenic sulcus. 2. No definite pneumothorax. ACT 112: Negative or not required by law. Electronically signed by: Kyle Barker M.D. 01/06/2023 8:02 AM
[2023-01-06 08:08] LABS: Hematocrit (blood only) 28.6 % (42.0-52.0); Hemoglobin 9.4 g/dl (14.0-18.0); Mean Corpuscular Hemoglobin 27.3 pg (25.0-34.0); Mean Corpuscular Hgb Conc 32.9 g/dL (32.0-36.0); Mean Corpuscular Volume 83.1 fL (80.0-100.0); Platelet Count 133 K/uL (130-400); RDW Coefficient of Variation 19.4 % (11.5-14.5); RDW Standard Deviation 55.7 fL (36.4-46.3); Red Blood Count 3.44 M/uL (4.70-6.10); White Blood Count 7.26 K/ul (4.8-10.8)
[2023-01-06 08:09] LABS: Albumin Globulin Ratio 1.4 (0.9-2); Anisocytosis Present; BUN Creatinine Ratio 31.3 (10-20); Bilirubin,Total 0.4 mg/dl (0.2-1.0); Calcium 8.3 mg/dl (8.6-10.3); Creatinine Clr Calc Pharmacy 40.3 ml/min; Eosinophils # (auto) 0.01 K/uL (0-0.50); Eosinophils % (auto) 0.1 %; Est GFR (African American) 60.5 ml/min; Est GFR (Non-African American) 52.2 ml/min; Globulin 2.1 gm/dl (2.5-4.0); Immature Granulocytes # (auto) 0.04 K/uL (0.01-0.20); Immature Granulocytes % (auto) 0.6 %; Lymphocytes # (auto) 1.14 K/uL (1.2-3.4); Lymphocytes % (auto) 15.7 %; Monocytes % (auto) 17.9 %; Neutrophils # (auto) 4.77 K/uL (1.40-6.50); Neutrophils % (auto) 65.7 %; Polychromasia 1+; Potassium 4.4 mmol/L (3.5-5.1); Total Protein 5.1 gm/dl (6.0-8.3)
[2023-01-06] MEDS: LIDOCAINE 5% 1 PATCH TD SCH (08:37)
[2023-01-06] MEDS: AMIODARONE 200 MG TAB PO SCH (08:37)
[2023-01-06] MEDS: METOPROLOL TARTRATE 50 MG TAB PO SCH ×2 (08:37→19:58)
[2023-01-06] MEDS: ATORVASTATIN 40 MG TAB PO SCH (08:37)
[2023-01-06] MEDS: PANTOprazole 40 MG TAB PO SCH (08:38)
[2023-01-06] MEDS: MEGESTROL ACETATE 40 MG TAB PO SCH (08:38)
[2023-01-06] MEDS: allopurinoL 300 MG TAB PO SCH (08:38)
[2023-01-06] MEDS: CEROVITE ADV FORMULA TAB PO SCH (08:38)
[2023-01-06] MEDS: [UNRECOGNIZED DRUG - OTHER] PO SCH ×4 (08:39→19:58)
[2023-01-06] MEDS: NYSTATIN PO SCH ×4 (08:39→19:58)
[2023-01-06] MEDS: MAGNESIUM PO SCH ×4 (08:39→19:58)
[2023-01-06] MEDS: ALUMINUM PO SCH ×4 (08:39→19:58)
[2023-01-06] MEDS: LIDOCAINE VISCOUS PO SCH ×4 (08:39→19:58)
--- NOTE | 2023-01-06 11:03 | Procedure Note ---
Procedure Note Date of Service January 06, 2023 Note Procedure: Pigtail chest tube removal Special Education Paraeducator: Dr. Tania Carter Indication: No more need Consent: Consent obtained from patient and prior to procedure Anesthesia: None Procedure: After removing the dressing, under aseptic precautions the pigtail catheter string was unwound. On examination pigtail catheter was removed, it was found to be intact. Vaseline gauze with 4 x 4 dressing was applied. The patient tolerated the procedure without obvious complication Complications: None Blood loss: Less than 2 cc. Coding CPT Codes Pulmonary/Thoracic - Pulmonary and Thoracic: 01481 Remove lung catheter ([id number]) [facility] Procedure Codes (Charges) Pulmonary/Thoracic Procedure 1: Pulmonary and Thoracic: 45738 Remove lung catheter
--- NOTE | 2023-01-06 15:38 | Hospitalist Progress Note ---
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 He is being managed for the following: Acute metabolic and cephalopathy Likely secondary to excessive opioid use/polypharmacy -CT head, CTA head/neck without acute findings. Scheduled Flexeril changed to as needed Minimize narcotics as able Mentation back to baseline No more drowsiness and/or confusion Remains generally weak but otherwise no more confusion Acute metabolic and cephalopathy is resolved Hypoxia: Loculated right pleural effusion RLL pneumonia, previously noted on imaging CT Chest:Underlying emphysema, more significant in the lung apices. Mild right- sided pleural effusion with right lower lobe atelectasis versus residual infiltrate. Focal interstitial changes versus residual pneumonitis in the left lower lobe. No pneumothorax. Hypoxia likely multifactorial-pneumonia, overmedication with narcotics Currently on Augmentin, doxycycline--plan was to complete 7-day course Continues to have R-sided chest pain pleuritic, repeated chest Xray (01/01), and obtained procalcitonin (as WBC elevated) CXR c/w with R sided pl. effusion - reviewed personally Started on small dose lasix as thoracentesis difficult given his thr ombocytopenia Right pleural effusion is not getting any better Pulmonary consulted-appreciate input and recommendation Status post right thoracentesis-loculated effusion and is status post chest tube placement Will have repeat CT in about 3 days and then depending on the fluid status the tube will be taken out Pleural fluid is exudative,Gram stain of the fluid remains unremarkable, AFB is pending Pathology of the fluid did not show any malignancy Drainage is bloody but not tierra blood in the chest x-ray showing improvement of the fluid Status post removal of the chest tube and the patient has been doing much better Diffuse B Cell Lymphoma of head/neck:s/p 1 cycle of RCEOP (11/18/22 - 11/21/22) Chronic myelomonocytic leukemia Chronic Thrombocytopenia Transfusion reaction to platelets transfusion: Following with Dr. Rojas - chemo on hold for now Soft tissue neck CT with necrotic lymph nodes are further decreased in size from prior exam Continue allopurinol for tumor lysis syndrome prophylaxis Planned chemotherapy as outpatient as soon as possible. Acute anemia-hemoglobin dropped to 6.5 without any active bleeding-could be secondary to illness/dilution/hemolysis/lymphoma Will receive 2 units of blood transfusion today-if hemoglobin does not show much improvement will do further testing to rule out any bleeding Pretreatment with Benadryl, Tylenol and dexamethasone given Hemoglobin went up to 9.4 and the patient has been feeling much better Weakness is improved Likely discharge in a day or 2 Paroxysmal A fib Not a candidate Anticoagulation with significant thrombocytopenia/Bleeding risk/Recurrent falls Continue metoprolol, amiodarone Heart rate is controlled Chronic thrombocytopenia H/O ITP No acute bleeding issues Platelets count went down to 24 on eighth and 30th on ninth of this month Patient received 2 units of platelet pheresis and the platelet count is 79 as of 01/03/2023 S/p thoracentesis on 01/03/2023 Platelets have increased to 119 Platelet has been normalized at 133 as of 01/06/2023 Severe protein calorie malnutrition:Significant weight loss > 30 pounds since 08/17. Continue Megace Poor oral intake BMI 18 Encouraged to increase oral intake Frequent falls: Recent R hip fx s/p IM nail by Dr. Null 10/27/22 Fall precautions Continue PT OT Needs placement Advised to schedule for outpatient orthopedics follow-up upon discharge PT and OT are done and the patient will need to go to rehab PAD: ABIs done on 03/17 showed R 0.87 and L 0.85 at rest concerning for occlusive disease to b/l SFA and tibial artery along with L iliac disease. Arterial Doppler:Moderate atherosclerotic plaque within the bilateral lower extremities. Suspected occlusion of the distal left posterior tibial artery, otherwise patent vessels. Monophasic flow within the bilateral calf vessels Continue statin Heel wounds-POA wound care nurse consulted Supportive care Waffle boots. H/o Dysphagia Video swallow:few episodes of trace silent aspiration with the thin liquid barium only.= Aspiration precautions Appreciate speech therapy recommendations Continue minced and moist, easy to chew diet with thin liquids Magic mouthwash as needed SSS S/P PPM in 2019 COPD: c/w home inhalers. no signs of exacerbation DVT Px: SCDs Re: Thrombocytopenia Code Status: DNR/DNI Disposition Needs placement Discussed with the and the patient Admission and Anticipated Discharge Date Admission Date: December 26, 2022 Subjective 01/03/2023 The patient was seen and examined in telemetry unit in presence of the He has been feeling much better Denies any shortness of breath or chest pain at rest Remains generally weak and lethargic 01/04/2023 The patient was seen and examined in telemetry unit He has been complaining of pain in the right lower chest at the site of chest tube with minimal shortness of breath at rest Denies any nausea and or vomiting Been generally weak and lethargic 01/05/2023 The patient was seen and examined in telemetry unit He has been complaining of pain in the right side of the chest where the tube was placed Complains to have more weakness but denies any increasing shortness of breath at rest Has some nonspecific abdominal discomfort 01/06/2023 The patient was seen and examined in telemetry unit He has been feeling much better today and the chest tube is out Denies any significant symptoms except minimal pain at the chest tube site No shortness of breath at rest, no nausea and or vomiting Review of Systems Review of Systems: All systems reviewed and are unremarkable except as noted below Physical Exam Physical Exam: Lying in bed with some discomfort due to chest tube and slight lateral chest wall pain Constitutional: + ill appearing and average body habitus Eyes: PERRL, conjunctivae normal, anicteric sclerae ENMT: external ear and nose normal, oropharynx normal Neck: trachea midline, no thyromegaly Respiratory: no respiratory distress Auscultation: + diminished lung sounds and + crackles (Bibasilar crackles with decreased breath sounds on the right); no wheezes Cardiovascular: Rate/Rhythm: regular rate and regular rhythm; not tachycardic Heart Sounds: normal S1 and normal S2; no murmur Extremities: no edema Gastrointestinal (Abdomen): Inspection/Auscultation: abdomen not distended Percussion/Palpation: abdomen soft; abdomen nontender Musculoskeletal: No acute arthritis involving any of the joint Neurologic: Alert, awake and oriented x3. No focal sensory or no motor deficit appreciated. Remains generally weak Lymphatic: no cervical or axillary lymphadenopathy Results & Data Results & Data Vital Signs (Past 12 Hours) Vital Signs Temp Pulse Pulse Resp BP Pulse Ox O2 Del Method 01/06/23 15:21 36.6 C 78 18 124/63 94 Room Air 01/06/23 15:16 75 01/06/23 11:27 36.4 C L 85 18 136/79 94 Nasal Cannula 01/06/23 10:19 80 01/06/23 10:19 Room Air 01/06/23 08:01 36.6 C 76 18 152/74 H 94 Nasal Cannula 01/06/23 03:37 36.7 C 91 H 18 137/65 94 Nasal Cannula O2 Flow Rate 01/06/23 15:21 01/06/23 15:16 01/06/23 11:27 3 01/06/23 10:19 01/06/23 10:19 01/06/23 08:01 3 01/06/23 03:37 3 Laboratory Results Short CBC 01/06/23 Range/Units 07:28 WBC 7.26 (4.8-10.8) K/ul Hgb 9.4 L D (14.0-18.0) g/dl Hct 28.6 L (42.0-52.0) % Plt Count 133 (130-400) K/uL BMP 01/06/23 07:28 Sodium 137 Potassium 4.4 D Chloride 109 H Carbon Dioxide 21 BUN 42 H Creatinine 1.34 D Glucose 124 H Calcium 8.3 L Liver Function 01/06/23 Range/Units 07:28 Total Bilirubin 0.4 (0.2-1.0) mg/dl AST 31 (13-39) U/L ALT 42 (7-52) U/L Alkaline Phosphatase 49 (34-104) U/L Albumin 3.0 L (3.4-5.0) gm/dl Medications Administered Current Inpatient Medications Hydrocodone Bitart/Acetaminophen (Hydrocodone/Acetamophen 5/325mg Tab) 1 tab PO Q6H PRN PRN Reason: Moderate to Severe Pain Stop: 01/14/23 12:08 Last Admin: 01/06/23 12:19 Dose: 1 tab Albuterol (Albuterol Hfa 8 Gm Inhaler) 1 puffs INH QID PRN PRN Reason: sob Stop: 01/25/23 19:41 Allopurinol (Allopurinol 300 Mg Tab) 300 mg PO QAM [facility] Stop: 01/26/23 08:59 Last Admin: 01/06/23 08:38 Dose: 300 mg Amiodarone HCl (Amiodarone 200 Mg Tab) 200 mg PO DAILY [facility] Stop: 01/26/23 08:59 Last Admin: 01/06/23 08:37 Dose: 200 mg Atorvastatin Calcium (Atorvastatin 40 Mg Tab) 40 mg PO QAM [facility] Stop: 01/26/23 08:59 Last Admin: 01/06/23 08:37 Dose: 40 mg Nystatin 30 ml/ Lidocaine HCl 30 ml/ Al Hydrox/Mg Hydrox/Simethicone 30 ml/ BARC [employer] 1 each 0 ml PO QID [facility] Stop: 01/27/23 12:59 Last Admin: 01/06/23 12:20 Dose: 5 ml Cyclobenzaprine HCl (Cyclobenzaprine Hcl 10 Mg Tab) 10 mg PO BID PRN PRN Reason: muscle spasms Stop: 01/25/23 20:59 Furosemide (Furosemide 20 Mg Tab) 20 mg PO BID17 [facility] Stop: 01/31/23 16:59 Last Admin: 01/04/23 08:01 Dose: 20 mg Guaifenesin (Guaifenesin Sugar Free 200 Mg/10 Ml Udc) 200 mg PO Q6H [facility] Stop: 01/31/23 11:29 Last Admin: 01/06/23 12:13 Dose: Not Given Hydromorphone HCl (Hydromorphone Inj 0.5 Mg/0.5 Ml Syr) 0.25 mg IV Q6H PRN PRN Reason: Pain Stop: 01/18/23 10:35 Last Admin: 01/06/23 00:16 Dose: 0.25 mg Acetaminophen (Ofirmev) 1,000 mg in 100 mls @ 400 mls/hr IV Q12 PRN PRN Reason: pain Stop: 01/07/23 10:20 Sodium Chloride (Nss 1000ml) 1,000 mls @ 80 mls/hr IV .[id number] [facility] Stop: 02/03/23 10:44 Last Admin: 01/06/23 04:34 Dose: 80 mls/hr Lidocaine (Lidocaine 5% 1 Patch) [facility] Stop: 02/03/23 06:24 Last Admin: 01/06/23 08:37 Dose: Not Given Megestrol Acetate (Megestrol Acetate 40 Mg Tab) [facility] [place] Stop: 01/26/23 08:59 Last Admin: 01/06/23 08:38 Dose: 40 mg Metoprolol Tartrate (Metoprolol Tartrate 50 Mg Tab) 50 mg PO BID [facility] Stop: 01/26/23 08:59 Last Admin: 01/06/23 08:37 Dose: 50 mg Miscellaneous (Remove Lidoderm Patch) 1 each N/A DAILY@2100 [facility] Stop: 02/03/23 20:59 Last Admin: 01/05/23 20:33 Dose: 1 each Multivitamins/Minerals (Cerovite Adv Formula Tab) [facility] [place] Stop: 01/26/23 08:59 Last Admin: 01/06/23 08:38 Dose: 1 tab Ondansetron HCl (Ondansetron Inj 2 Mg/Ml 2 Ml Vial) 4 mg IV Q6H PRN PRN Reason: Nausea Stop: 01/25/23 20:32 Pantoprazole Sodium (Pantoprazole 40 Mg Tab) 40 mg PO [facility] Stop: 01/26/23 08:59 Last Admin: 01/06/23 08:38 Dose: 40 mg Polyethylene Glycol (Polyethylene (Miralax) 17 Gm Pack) 17 gm PO DAILY PRN PRN Reason: Constipation Stop: 01/25/23 20:32
[2023-01-07] MEDS: SODIUM CHLORIDE 0.9% 1000ML 1,000 ML IV SCH (06:32)
[2023-01-07] MEDS: guaiFENesin SUGAR FREE 200 MG/10 ML UDC PO SCH ×3 (06:32→18:06)
--- NOTE | 2023-01-07 07:05 | XRay Report ---
SINGLE VIEW CHEST CLINICAL HISTORY: Chest tube removal. FINDINGS: An AP, portable, upright chest radiograph is compared to study dated 01/06/2023 and correlat ed with chest CT dated 12/27/2022. A 2-lead cardiac pacemaker is unchanged in position. The heart is en larged noting atherosclerotic calcification of the thoracic aorta. A right-sided chest tube has been removed. Emphysema and chronic interstitial thickening is similar to previous. Scarring/atelectasis i s noted at the lung bases. There is a small right pleural effusion. No pneumothorax is seen. The skel etal structures are osteopenic. The bony thorax is grossly intact. IMPRESSION: 1. A right-sided chest tube has been removed. No residual pneumothorax is clearly identified. 2. Small residual right pleural effusion. 3. Cardiomegaly and cardiac pacemaker without radiographic evidence of congestive failure. 4. Emphysema. ACT 112: Negative or not required by law. Electronically signed by: Richie Freire M.D. 01/07/2023 7:03 AM
[2023-01-07] MEDS: MEGESTROL ACETATE 40 MG TAB PO SCH (08:18)
[2023-01-07] MEDS: ATORVASTATIN 40 MG TAB PO SCH (08:18)
[2023-01-07] MEDS: AMIODARONE 200 MG TAB PO SCH (08:18)
[2023-01-07] MEDS: CEROVITE ADV FORMULA TAB PO SCH (08:18)
[2023-01-07] MEDS: PANTOprazole 40 MG TAB PO SCH (08:18)
[2023-01-07] MEDS: METOPROLOL TARTRATE 50 MG TAB PO SCH ×2 (08:18→20:15)
[2023-01-07] MEDS: NYSTATIN PO SCH ×4 (08:19→21:22)
[2023-01-07] MEDS: ALUMINUM PO SCH ×4 (08:19→21:22)
[2023-01-07] MEDS: LIDOCAINE 5% 1 PATCH TD SCH (08:19)
[2023-01-07] MEDS: [UNRECOGNIZED DRUG - OTHER] PO SCH ×4 (08:19→21:22)
[2023-01-07] MEDS: LIDOCAINE VISCOUS PO SCH ×4 (08:19→21:22)
[2023-01-07] MEDS: MAGNESIUM PO SCH ×4 (08:19→21:22)
[2023-01-07] MEDS: HYDROCODONE/ACETAMOPHEN 5/325MG TAB PO PRN ×3 (08:29→20:24)
[2023-01-07] MEDS: allopurinoL 300 MG TAB PO SCH (08:30)
--- NOTE | 2023-01-07 12:06 | Pulmonology Progress Note ---
Date of Service January 07, 2023 Assessment & Plan (1) Hypoxia: (2) Pneumonia: (3) Thrombocytopenia: (4) Loculated pleural effusion: (5) COPD with emphysema: Plan Impression: 72-year-old male with diffuse large B-cell lymphoma currently undergoing chemotherapy admitted with delirium and pneumonia now with right- sided pleural effusion. -- Loculated right-sided pleural effusion Worse compared to CT chest 12/27/2022 Status post pigtail catheter placement 01/03/23, got 2 days MIST 2 protocol Micro shows no growth till date Pathology was negative for malignancy, specimen did consist blood -- Pneumonia Right lower lobe Continue with antibiotics -- Acute hypoxic respiratory failure -> resolved Likely secondary to above Continue with O2 supplementation to keep oxygen saturation between 90-92% --COPD with emphysema Only on albuterol at home Patient does not seem to be in exacerbation -- Acute blood loss anemia Did get 2 units PRBC on 01/05/2023 I did give the patient tranexamic acid 2 g IV and lavage the right-sided pleural space with cold saline on 01/05/2023 -- Large B-cell lymphoma On chemotherapy Plan: Chest x-ray from today shows clear airways. No reaccumulation for fluid and no pneumo. No further recommendation from pulmonary perspective. Will sign off. Please call directly with any questions. Case discussed with Dr. Benton Please note the above document was generated using voice recognition software. It may contain grammatical, syntax or spelling errors.Any formal questions or concerns about the content, text or information contained within the body of t his dictation should be directly addressed to the provider for clarification. Admission and Anticipated Discharge Date Admission Date: December 26, 2022 Subjective Patient seen and examined at bedside. No acute distress, no adverse events overnight. Denies any chest pain, no shortness of breath No headache, no nausea or vomiting Poor appetite Review of Systems Review of Systems: All systems reviewed & are unremarkable except as noted in Subjective Physical Exam Physical Exam: Constitutional: No acute distress, frail-appearing HEENT: EOMI, PERRLA Respiratory system: Decreased air entry on the right side, no wheeze, no rhonchi, mild crackles bilateral lower lobes CVS: S1-S2 positive, no murmurs or gallops Abdomen: Soft, nontender, nondistended, positive bowel sounds x4 Extremities: +2 pulses bilaterally radialis/ dorsalis pedis, no cyanosis, no edema Neuro: Awake alert oriented x3 Psych: Normal mood and affect G/U: No Choudhary Skin: no rashes, warm and dry Lymphatic: no cervical or axillary lymphadenopathy Results & Data Results & Data Vital Signs (Past 12 Hours) Vital Signs Temp Pulse Pulse Resp BP Pulse Ox O2 Del Method 01/07/23 11:53 36.3 C L 73 19 114/61 95 Room Air 01/07/23 11:33 71 01/07/23 07:09 36.5 C 67 20 132/55 L 92 Room Air 01/07/23 03:07 36.6 C 71 18 158/83 H 92 Room Air Laboratory Results 01/06/23 07:28 01/06/23 07:28 PG Care Time/CCT Total # of Minutes Spent Total Time Spent with Patient: Total time spent is greater than 50% in coordination of care (as documented) at patient's floor/unit and/or counseling patient: Coding Level of Care Code 74815 SUB INP/OBS CARE 2/35MIN Diagnoses Hypoxia R09.02 Pneumonia J18.9 Thrombocytopenia D69.6 Loculated pleural effusion J90 COPD with emphysema J43.9
--- NOTE | 2023-01-07 12:31 | Hospitalist Progress Note ---
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 He is being managed for the following: Acute metabolic and cephalopathy Likely secondary to excessive opioid use/polypharmacy -CT head, CTA head/neck without acute findings. Scheduled Flexeril changed to as needed Minimize narcotics as able Mentation back to baseline No more drowsiness and/or confusion Remains generally weak but otherwise no more confusion Acute metabolic and cephalopathy is resolved Hypoxia: Loculated right pleural effusion RLL pneumonia, previously noted on imaging CT Chest:Underlying emphysema, more significant in the lung apices. Mild right- sided pleural effusion with right lower lobe atelectasis versus residual infiltrate. Focal interstitial changes versus residual pneumonitis in the left lower lobe. No pneumothorax. Hypoxia likely multifactorial-pneumonia, overmedication with narcotics Currently on Augmentin, doxycycline--plan was to complete 7-day course Continues to have R-sided chest pain pleuritic, repeated chest Xray (01/01), and obtained procalcitonin (as WBC elevated) CXR c/w with R sided pl. effusion - reviewed personally Started on small dose lasix as thoracentesis difficult given his thr ombocytopenia Right pleural effusion is not getting any better Pulmonary consulted-appreciate input and recommendation Status post right thoracentesis-loculated effusion and is status post chest tube placement Will have repeat CT in about 3 days and then depending on the fluid status the tube will be taken out Pleural fluid is exudative,Gram stain of the fluid remains unremarkable, AFB is pending Pathology of the fluid did not show any malignancy Drainage is bloody but not tierra blood in the chest x-ray showing improvement of the fluid Status post removal of the chest tube and the patient has been doing much better Chest x-ray from today shows clear airways, no accumulation of fluid and no pneumonia She will be discharged out of the hospital this afternoon Diffuse B Cell Lymphoma of head/neck:s/p 1 cycle of RCEOP (11/18/22 - 11/21/22) Chronic myelomonocytic leukemia Chronic Thrombocytopenia Transfusion reaction to platelets transfusion: Following with Dr. Rojas - chemo on hold for now Soft tissue neck CT with necrotic lymph nodes are further decreased in size from prior exam Continue allopurinol for tumor lysis syndrome prophylaxis Planned chemotherapy as outpatient as soon as possible. Will have appointment with Dr. Rojas following discharge Acute anemia-hemoglobin dropped to 6.5 without any active bleeding-could be secondary to illness/dilution/hemolysis/lymphoma Will receive 2 units of blood transfusion today-if hemoglobin does not show much improvement will do further testing to rule out any bleeding Pretreatment with Benadryl, Tylenol and dexamethasone given Hemoglobin went up to 9.4 and the patient has been feeling much better Weakness is improved Likely discharge in a day or 2 Hemoglobin remained stable and the patient has been feeling much better Paroxysmal A fib Not a candidate Anticoagulation with significant thrombocytopenia/Bleeding risk/Recurrent falls Continue metoprolol, amiodarone Heart rate is controlled Chronic thrombocytopenia H/O ITP No acute bleeding issues Platelets count went down to 24 on eighth and 30th on ninth of this month Patient received 2 units of platelet pheresis and the platelet count is 79 as of 01/03/2023 S/p thoracentesis on 01/03/2023 Platelets have increased to 119 Platelet has been normalized at 133 as of 01/06/2023 Severe protein calorie malnutrition:Significant weight loss > 30 pounds since 08/17. Continue Megace Poor oral intake BMI 18 Encouraged to increase oral intake Frequent falls: Recent R hip fx s/p IM nail by Dr. Null 10/27/22 Fall precautions Continue PT OT Needs placement Advised to schedule for outpatient orthopedics follow-up upon discharge PT and OT are done and the patient will need to go to rehab If accepted to rehab he will be discharged home this afternoon PAD: ABIs done on 03/17 showed R 0.87 and L 0.85 at rest concerning for occlusive disease to b/l SFA and tibial artery along with L iliac disease. Arterial Doppler:Moderate atherosclerotic plaque within the bilateral lower extremities. Suspected occlusion of the distal left posterior tibial artery, otherwise patent vessels. Monophasic flow within the bilateral calf vessels Continue statin Heel wounds-POA wound care nurse consulted Supportive care Waffle boots. H/o Dysphagia Video swallow:few episodes of trace silent aspiration with the thin liquid barium only.= Aspiration precautions Appreciate speech therapy recommendations Continue minced and moist, easy to chew diet with thin liquids Magic mouthwash as needed SSS S/P PPM in 2019 COPD: c/w home inhalers. no signs of exacerbation DVT Px: SCDs Re: Thrombocytopenia Code Status: DNR/DNI Disposition Needs placement Discussed with the and the patient Admission and Anticipated Discharge Date Admission Date: December 26, 2022 Subjective 01/03/2023 The patient was seen and examined in telemetry unit in presence of the He has been feeling much better Denies any shortness of breath or chest pain at rest Remains generally weak and lethargic 01/04/2023 The patient was seen and examined in telemetry unit He has been complaining of pain in the right lower chest at the site of chest tube with minimal shortness of breath at rest Denies any nausea and or vomiting Been generally weak and lethargic 01/05/2023 The patient was seen and examined in telemetry unit He has been complaining of pain in the right side of the chest where the tube was placed Complains to have more weakness but denies any increasing shortness of breath at rest Has some nonspecific abdominal discomfort 01/06/2023 The patient was seen and examined in telemetry unit He has been feeling much better today and the chest tube is out Denies any significant symptoms except minimal pain at the chest tube site No shortness of breath at rest, no nausea and or vomiting 01/07/2023 The patient was seen and examined in telemetry unit in presence of the He has minimal complaints today involving the right heel and the chest pain is better since the tube is out Denies any shortness of breath, any fever and or chills He wants to go home Review of Systems Review of Systems: All systems reviewed and are unremarkable except as noted below Physical Exam Physical Exam: Lying in bed with some discomfort due to chest tube and slight lateral chest wall pain Constitutional: + ill appearing and average body habitus Eyes: PERRL, conjunctivae normal, anicteric sclerae ENMT: external ear and nose normal, oropharynx normal Neck: trachea midline, no thyromegaly Respiratory: no respiratory distress Auscultation: + diminished lung sounds and + crackles (Bibasilar crackles with decreased breath sounds on the right); no wheezes Cardiovascular: Rate/Rhythm: regular rate and regular rhythm; not tachycardic Heart Sounds: normal S1 and normal S2; no murmur Extremities: no edema Gastrointestinal (Abdomen): Inspection/Auscultation: abdomen not distended Percussion/Palpation: abdomen soft; abdomen nontender Musculoskeletal: No acute arthritis involving any of the joints Neurologic: Alert, awake and oriented x3. Generally weak but no focal sensory or motor deficit appreciated Lymphatic: no cervical or axillary lymphadenopathy Results & Data Results & Data Vital Signs (Past 12 Hours) Vital Signs Temp Pulse Pulse Resp BP Pulse Ox O2 Del Method 01/07/23 11:53 36.3 C L 73 19 114/61 95 Room Air 01/07/23 11:33 71 01/07/23 07:09 36.5 C 67 20 132/55 L 92 Room Air 01/07/23 03:07 36.6 C 71 18 158/83 H 92 Room Air Medications Administered Current Inpatient Medications Hydrocodone Bitart/Acetaminophen (Hydrocodone/Acetamophen 5/325mg Tab) 1 tab PO Q6H PRN PRN Reason: Moderate to Severe Pain Stop: 01/14/23 12:08 Last Admin: 01/07/23 08:29 Dose: 1 tab Albuterol (Albuterol Hfa 8 Gm Inhaler) 1 puffs INH QID PRN PRN Reason: sob Stop: 01/25/23 19:41 Allopurinol (Allopurinol 300 Mg Tab) 300 mg PO QAM [facility] Stop: 01/26/23 08:59 Last Admin: 01/07/23 08:30 Dose: 300 mg Amiodarone HCl (Amiodarone 200 Mg Tab) 200 mg PO DAILY JOÃO Stop: 01/26/23 08:59 Last Admin: 01/07/23 08:18 Dose: 200 mg Atorvastatin Calcium (Atorvastatin 40 Mg Tab) 40 mg PO QAM [facility] Stop: 01/26/23 08:59 Last Admin: 01/07/23 08:18 Dose: 40 mg Nystatin 30 ml/ Lidocaine HCl 30 ml/ Al Hydrox/Mg Hydrox/Simethicone 30 ml/ BARCODE IDENTIFIER 1 each 0 ml PO QID [facility] Stop: 01/27/23 12:59 Last Admin: 01/07/23 08:19 Dose: 5 ml Cyclobenzaprine HCl (Cyclobenzaprine Hcl 10 Mg Tab) 10 mg PO BID PRN PRN Reason: muscle spasms Stop: 01/25/23 20:59 Furosemide (Furosemide 20 Mg Tab) 20 mg PO BID17 [facility] Stop: 01/31/23 16:59 Last Admin: 01/04/23 08:01 Dose: 20 mg Guaifenesin (Guaifenesin Sugar Free 200 Mg/10 Ml Udc) 200 mg PO Q6H [facility] Stop: 01/31/23 11:29 Last Admin: 01/07/23 11:44 Dose: Not Given Hydromorphone HCl (Hydromorphone Inj 0.5 Mg/0.5 Ml Syr) 0.25 mg IV Q6H PRN PRN Reason: Pain Stop: 01/18/23 10:35 Last Admin: 01/06/23 00:16 Dose: 0.25 mg Sodium Chloride (Nss 1000ml) 1,000 mls @ 80 mls/hr IV .[id number] [facility] Stop: 02/03/23 10:44 Last Admin: 01/07/23 06:32 Dose: 80 mls/hr Lidocaine (Lidocaine 5% 1 Patch) 1 patch TD QAM [facility] Stop: 02/03/23 06:24 Last Admin: 01/07/23 08:19 Dose: Not Given Megestrol Acetate (Megestrol Acetate 40 Mg Tab) 40 mg PO QAM [facility] Stop: 01/26/23 08:59 Last Admin: 01/07/23 08:18 Dose: 40 mg Metoprolol Tartrate (Metoprolol Tartrate 50 Mg Tab) 50 mg PO BID [facility] Stop: 01/26/23 08:59 Last Admin: 01/07/23 08:18 Dose: 50 mg Miscellaneous (Remove Lidoderm Patch) 1 each N/A DAILY@2100 [facility] Stop: 02/03/23 20:59 Last Admin: 01/06/23 19:59 Dose: 1 each Multivitamins/Minerals (Cerovite Adv Formula Tab) 1 tab PO QAM [facility] Stop: 01/26/23 08:59 Last Admin: 01/07/23 08:18 Dose: 1 tab Ondansetron HCl (Ondansetron Inj 2 Mg/Ml 2 Ml Vial) 4 mg IV Q6H PRN PRN Reason: Nausea Stop: 01/25/23 20:32 Pantoprazole Sodium (Pantoprazole 40 Mg Tab) 40 mg PO QAM [facility] Stop: 01/26/23 08:59 Last Admin: 01/07/23 08:18 Dose: 40 mg Polyethylene Glycol (Polyethylene (Miralax) 17 Gm Pack) 17 gm PO DAILY PRN PRN Reason: Constipation Stop: 01/25/23 20:32
[2023-01-08] MEDS: guaiFENesin SUGAR FREE 200 MG/10 ML UDC PO SCH ×5 (00:31→23:17)
[2023-01-08] MEDS: HYDROCODONE/ACETAMOPHEN 5/325MG TAB PO PRN ×3 (06:49→18:42)
--- NOTE | 2023-01-08 07:30 | XRay Report ---
SINGLE VIEW CHEST CLINICAL HISTORY: Follow-up pneumothorax. FINDINGS: An AP, portable, upright chest radiograph is compared to study dated 01/07/2023 and correlat ed with chest CT dated 12/27/2022. The examination is degraded by portable technique and apical lordoti c positioning. A 2-lead cardiac pacemaker is unchanged in position. The heart is enlarged noting ath erosclerotic calcification of the thoracic aorta. Emphysema and chronic interstitial thickening is si milar to previous. There is mild elevation right hemidiaphragm. Scarring/atelectasis is noted at the lung bases. There is a small right pleural effusion. No pneumothorax is seen. The skeletal structures are osteopenic. The bony thorax is grossly intact. IMPRESSION: 1. No residual pneumothorax is clearly identified. 2. Small residual right pleural effusion. 3. Cardiomegaly and cardiac pacemaker without radiographic evidence of congestive failure. 4. Emphysema. ACT 112: Negative or not required by law. Electronically signed by: Richie Freire M.D. 01/08/2023 7:27 AM
[2023-01-08] MEDS: ATORVASTATIN 40 MG TAB PO SCH (08:33)
[2023-01-08] MEDS: METOPROLOL TARTRATE 50 MG TAB PO SCH ×2 (08:33→20:25)
[2023-01-08] MEDS: CEROVITE ADV FORMULA TAB PO SCH (08:33)
[2023-01-08] MEDS: PANTOprazole 40 MG TAB PO SCH (08:33)
[2023-01-08] MEDS: MEGESTROL ACETATE 40 MG TAB PO SCH (08:33)
[2023-01-08] MEDS: MAGNESIUM PO SCH ×4 (08:34→20:27)
[2023-01-08] MEDS: allopurinoL 300 MG TAB PO SCH (08:34)
[2023-01-08] MEDS: [UNRECOGNIZED DRUG - OTHER] PO SCH ×4 (08:34→20:27)
[2023-01-08] MEDS: LIDOCAINE VISCOUS PO SCH ×4 (08:34→20:27)
[2023-01-08] MEDS: LIDOCAINE 5% 1 PATCH TD SCH (08:34)
[2023-01-08] MEDS: NYSTATIN PO SCH ×4 (08:34→20:27)
[2023-01-08] MEDS: AMIODARONE 200 MG TAB PO SCH (08:34)
[2023-01-08] MEDS: ALUMINUM PO SCH ×4 (08:34→20:27)
--- NOTE | 2023-01-08 08:56 | Pulmonology Progress Note ---
Date of Service January 08, 2023 Assessment & Plan (1) Hypoxia: (2) Pneumonia: (3) Thrombocytopenia: (4) Loculated pleural effusion: (5) COPD with emphysema: Plan Impression: 72-year-old male with diffuse large B-cell lymphoma currently undergoing chemotherapy admitted with delirium and pneumonia now with right- sided pleural effusion. -- Loculated right-sided pleural effusion Worse compared to CT chest 12/27/2022 Status post pigtail catheter placement 01/03/23, got 2 days MIST 2 protocol Chest tube removed 01/06/2023 Micro shows no growth till date Pathology was negative for malignancy, specimen did consist blood -- Pneumonia Right lower lobe Continue with antibiotics -- Acute hypoxic respiratory failure -> resolved Likely secondary to above Continue with O2 supplementation to keep oxygen saturation between 90-92% --COPD with emphysema Only on albuterol at home Patient does not seem to be in exacerbation -- Acute blood loss anemia Did get 2 units PRBC on 01/05/2023 I did give the patient tranexamic acid 2 g IV and lavage the right-sided pleural space with cold saline on 01/05/2023 -- Large B-cell lymphoma On chemotherapy Plan: Chest x-ray from today shows no clear lung infiltrate. No reaccumulation of pleural effusion Pleural fluid micro is negative to date No further recommendation from pulmonary perspective. Will sign off. Please call directly with any questions. Case discussed with Dr. Benton Please note the above document was generated using voice recognition software. It may contain grammatical, syntax or spelling errors.Any formal questions or concerns about the content, text or information contained within the body of this dictation should be directly addressed to the provider for clarification. Admission and Anticipated Discharge Date Admission Date: December 26, 2022 Subjective Patient seen and examined at bedside. No acute distress, no adverse events overnight Patient's was on also in the room at the time of examination He was saturating 96% on room air Denies any chest pain, no headache, no nausea, no vomiting Fair appetite. Review of Systems Review of Systems: All systems reviewed & are unremarkable except as noted in Subjective Physical Exam Physical Exam: Constitutional: No acute distress, frail-appearing HEENT: EOMI, PERRLA Respiratory system: Decreased air entry on the right side, no wheeze, no rhonchi, mild crackles bilateral lower lobes CVS: S1-S2 positive, no murmurs or gallops Abdomen: Soft, nontender, nondistended, positive bowel sounds x4 Extremities: +2 pulses bilaterally radialis/ dorsalis pedis, no cyanosis, no edema Neuro: Awake alert oriented x3 Psych: Normal mood and affect G/U: No Choudhary Skin: no rashes, warm and dry Lymphatic: no cervical or axillary lymphadenopathy Results & Data Results & Data Vital Signs (Past 12 Hours) Vital Signs Temp Pulse Pulse Resp BP Pulse Ox Pulse Ox 01/08/23 08:21 36.7 C 83 18 139/63 97 01/08/23 07:53 69 01/08/23 07:53 01/08/23 03:00 36.8 C 76 18 113/64 94 01/08/23 01:00 93 01/07/23 23:47 37.0 C 73 22 151/69 H 93 01/07/23 22:26 73 O2 Del Method O2 Del Method 01/08/23 08:21 Room Air 01/08/23 07:53 01/08/23 07:53 Room Air 01/08/23 03:00 Room Air 01/08/23 01:00 Room Air 01/07/23 23:47 Room Air 01/07/23 22:26 Laboratory Results 01/06/23 07:28 01/06/23 07:28 PG Care Time/CCT Total # of Minutes Spent Total Time Spent with Patient: Total time spent is greater than 50% in coordination of care (as documented) at patient's floor/unit and/or counseling patient: Coding Level of Care Code 10877 SUB INP/OBS CARE 2/35MIN Diagnoses Hypoxia R09.02 Pneumonia J18.9 Thrombocytopenia D69.6 Loculated pleural effusion J90 COPD with emphysema J43.9
[2023-01-08] MEDS ORDERED: ACETAMINOPHEN 325 MG TAB PO PRN (15:23)
--- NOTE | 2023-01-08 16:28 | Hospitalist Progress Note ---
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 He is being managed for the following: Acute metabolic and cephalopathy Likely secondary to excessive opioid use/polypharmacy -CT head, CTA head/neck without acute findings. Scheduled Flexeril changed to as needed Minimize narcotics as able Mentation back to baseline No more drowsiness and/or confusion Remains generally weak but otherwise no more confusion Acute metabolic and cephalopathy is resolved Will need placement for ongoing weakness and tiredness Hypoxia: Loculated right pleural effusion RLL pneumonia, previously noted on imaging CT Chest:Underlying emphysema, more significant in the lung apices. Mild right- sided pleural effusion with right lower lobe atelectasis versus residual infiltrate. Focal interstitial changes versus residual pneumonitis in the left lower lobe. No pneumothorax. Hypoxia likely multifactorial-pneumonia, overmedication with narcotics Currently on Augmentin, doxycycline--plan was to complete 7-day course Continues to have R-sided chest pain pleuritic, repeated chest Xray (01/01), and obtained procalcitonin (as WBC elevated) CXR c/w with R sided pl. effusion - reviewed personally Started on small dose lasix as thoracentesis difficult given his thrombocytopenia Right pleural effusion is not getting any better Pulmonary consulted-appreciate input and recommendation Status post right thoracentesis-loculated effusion and is status post chest tube placement Will have repeat CT in about 3 days and then depending on the fluid status the tube will be taken out Pleural fluid is exudative,Gram stain of the fluid remains unremarkable, AFB is pending Pathology of the fluid did not show any malignancy Drainage is bloody but not tierra blood in the chest x-ray showing improvement of the fluid Status post removal of the chest tube and the patient has been doing much better Chest x-ray from today shows clear airways, no accumulation of fluid and no pneumonia If swelling with minimal ambulation-we will need placement Diffuse B Cell Lymphoma of head/neck:s/p 1 cycle of RCEOP (11/18/22 - 11/21/22) Chronic myelomonocytic leukemia Chronic Thrombocytopenia Transfusion reaction to platelets transfusion: Following with Dr. Rojas - chemo on hold for now Soft tissue neck CT with necrotic lymph nodes are further decreased in size from prior exam Continue allopurinol for tumor lysis syndrome prophylaxis Planned chemotherapy as outpatient as soon as possible. Will have appointment with Dr. Rojas following discharge Acute anemia-hemoglobin dropped to 6.5 without any active bleeding-could be secondary to illness/dilution/hemolysis/lymphoma Will receive 2 units of blood transfusion today-if hemoglobin does not show much improvement will do further testing to rule out any bleeding Pretreatment with Benadryl, Tylenol and dexamethasone given Hemoglobin went up to 9.4 and the patient has been feeling much better Weakness is improved Likely discharge in a day or 2 Hemoglobin remained stable and the patient has been feeling much better Paroxysmal A fib Not a candidate Anticoagulation with significant thrombocytopenia/Bleeding risk/Recurrent falls Continue metoprolol, amiodarone Heart rate is controlled Chronic thrombocytopenia H/O ITP No acute bleeding issues Platelets count went down to 24 on eighth and 30th on ninth of this month Patient received 2 units of platelet pheresis and the platelet count is 79 as of 01/03/2023 S/p thoracentesis on 01/03/2023 Platelets have increased to 119 Platelet has been normalized at 133 as of 01/06/2023 Severe protein calorie malnutrition:Significant weight loss > 30 pounds since 08/17. Continue Megace Poor oral intake BMI 18 Encouraged to increase oral intake Frequent falls: Recent R hip fx s/p IM nail by Dr. Null 10/27/22 Fall precautions Continue PT OT Needs placement Advised to schedule for outpatient orthopedics follow-up upon discharge PT and OT are done and the patient will need to go to rehab If accepted to rehab he will be discharged home this afternoon Wanted to go home but later on changed his mind PAD: ABIs done on 03/17 showed R 0.87 and L 0.85 at rest concerning for occlusive disease to b/l SFA and tibial artery along with L iliac disease. Arterial Doppler:Moderate atherosclerotic plaque within the bilateral lower extremities. Suspected occlusion of the distal left posterior tibial artery, otherwise patent vessels. Monophasic flow within the bilateral calf vessels Continue statin Heel wounds-POA wound care nurse consulted Supportive care Waffle boots. H/o Dysphagia Video swallow:few episodes of trace silent aspiration with the thin liquid barium only.= Aspiration precautions Appreciate speech therapy recommendations Continue minced and moist, easy to chew diet with thin liquids Magic mouthwash as needed SSS S/P PPM in 2019 COPD: c/w home inhalers. no signs of exacerbation DVT Px: SCDs Re: Thrombocytopenia Code Status: DNR/DNI Disposition Needs placement Discussed with the and the patient Admission and Anticipated Discharge Date Admission Date: December 26, 2022 Subjective 01/03/2023 The patient was seen and examined in telemetry unit in presence of the He has been feeling much better Denies any shortness of breath or chest pain at rest Remains generally weak and lethargic 01/04/2023 The patient was seen and examined in telemetry unit He has been complaining of pain in the right lower chest at the site of chest tube with minimal shortness of breath at rest Denies any nausea and or vomiting Been generally weak and lethargic 01/05/2023 The patient was seen and examined in telemetry unit He has been complaining of pain in the right side of the chest where the tube was placed Complains to have more weakness but denies any increasing shortness of breath at rest Has some nonspecific abdominal discomfort 01/06/2023 The patient was seen and examined in telemetry unit He has been feeling much better today and the chest tube is out Denies any significant symptoms except minimal pain at the chest tube site No shortness of breath at rest, no nausea and or vomiting 01/07/2023 The patient was seen and examined in telemetry unit in presence of the He has minimal complaints today involving the right heel and the chest pain is better since the tube is out Denies any shortness of breath, any fever and or chills He wants to go home 01/08/2023 The patient was seen and examined in telemetry unit in presence of the The patient remains stable but extremely weak and lethargic Keeps falling with minimal ambulation-Will need to go to rehab Review of Systems Review of Systems: All systems reviewed and are unremarkable except as noted below Physical Exam Physical Exam: Sitting on a chair without any acute distress Constitutional: + ill appearing and average body habitus Eyes: PERRL, conjunctivae normal, anicteric sclerae ENMT: external ear and nose normal, oropharynx normal Neck: trachea midline, no thyromegaly Respiratory: no respiratory distress Auscultation: + diminished lung sounds and + crackles (Bibasilar crackles with decreased breath sounds on the right); no wheezes Cardiovascular: Rate/Rhythm: regular rate and regular rhythm; not tachycardic Heart Sounds: normal S1 and normal S2; no murmur Extremities: no edema Gastrointestinal (Abdomen): Inspection/Auscultation: abdomen not distended Percussion/Palpation: abdomen soft; abdomen nontender Musculoskeletal: No acute arthritis involving any joint Neurologic: Alert, awake and oriented x3. Extremely weak and lethargic Lymphatic: no cervical or axillary lymphadenopathy Results & Data Results & Data Vital Signs (Past 12 Hours) Vital Signs Temp Pulse Pulse Resp BP Pulse Ox O2 Del Method 01/08/23 16:23 72 01/08/23 11:47 37.1 C 74 22 169/88 H Room Air 01/08/23 08:21 36.7 C 83 18 139/63 97 Room Air 01/08/23 07:53 69 01/08/23 07:53 Room Air Medications Administered Current Inpatient Medications Acetaminophen (Acetaminophen 325 Mg Tab) 650 mg PO Q4H PRN PRN Reason: Mild Pain Stop: 02/07/23 15:22 Last Admin: 01/08/23 15:39 Dose: 650 mg Hydrocodone Bitart/Acetaminophen (Hydrocodone/Acetamophen 5/325mg Tab) 1 tab PO Q6H PRN PRN Reason: Moderate to Severe Pain Stop: 01/14/23 12:08 Last Admin: 01/08/23 12:50 Dose: 1 tab Albuterol (Albuterol Hfa 8 Gm Inhaler) 1 puffs INH QID PRN PRN Reason: sob Stop: 01/25/23 19:41 Allopurinol (Allopurinol 300 Mg Tab) 300 mg PO QAM JOÃO Stop: 01/26/23 08:59 Last Admin: 01/08/23 08:34 Dose: 300 mg Amiodarone HCl (Amiodarone 200 Mg Tab) 200 mg PO DAILY [facility] Stop: 01/26/23 08:59 Last Admin: 01/08/23 08:34 Dose: 200 mg Atorvastatin Calcium (Atorvastatin 40 Mg Tab) 40 mg PO QAM [facility] Stop: 01/26/23 08:59 Last Admin: 01/08/23 08:33 Dose: 40 mg Nystatin 30 ml/ Lidocaine HCl 30 ml/ Al Hydrox/Mg Hydrox/Simethicone 30 ml/ [employer] 1 each 0 ml PO QID [facility] Stop: 01/27/23 12:59 Last Admin: 01/08/23 12:51 Dose: 10 ml Cyclobenzaprine HCl (Cyclobenzaprine Hcl 10 Mg Tab) 10 mg PO BID PRN PRN Reason: muscle spasms Stop: 01/25/23 20:59 Furosemide (Furosemide 20 Mg Tab) 20 mg PO BID17 [facility] Stop: 01/31/23 16:59 Last Admin: 01/04/23 08:01 Dose: 20 mg Guaifenesin (Guaifenesin Sugar Free 200 Mg/10 Ml Udc) 200 mg PO Q6H [facility] Stop: 01/31/23 11:29 Last Admin: 01/08/23 11:17 Dose: Not Given Hydromorphone HCl (Hydromorphone Inj 0.5 Mg/0.5 Ml Syr) 0.25 mg IV Q6H PRN PRN Reason: Pain Stop: 01/18/23 10:35 Last Admin: 01/06/23 00:16 Dose: 0.25 mg Lidocaine (Lidocaine 5% 1 Patch) [facility]: 02/03/23 06:24 Last Admin: 01/08/23 08:34 Dose: Not Given Megestrol Acetate (Megestrol Acetate 40 Mg Tab) 40 [facility] Stop: 01/26/23 08:59 Last Admin: 01/08/23 08:33 Dose: 40 mg Metoprolol Tartrate (Metoprolol Tartrate 50 Mg Tab) 50 mg PO BID [facility] Stop: 01/26/23 08:59 Last Admin: 01/08/23 08:33 Dose: 50 mg Miscellaneous (Remove Lidoderm Patch) 1 each N/A DAILY@2100 [facility] Stop: 02/03/23 20:59 Last Admin: 01/07/23 20:19 Dose: 1 each Multivitamins/Minerals (Cerovite Adv Formula Tab) 1 tab [facility] Stop: 01/26/23 08:59 Last Admin: 01/08/23 08:33 Dose: 1 tab Ondansetron HCl (Ondansetron Inj 2 Mg/Ml 2 Ml Vial) 4 mg IV Q6H PRN PRN Reason: Nausea Stop: 01/25/23 20:32 Pantoprazole Sodium (Pantoprazole 40 Mg Tab) 40 mg PO [facility] Stop: 01/26/23 08:59 Last Admin: 01/08/23 08:33 Dose: 40 mg Polyethylene Glycol (Polyethylene (Miralax) 17 Gm Pack) 17 gm PO DAILY PRN PRN Reason: Constipation Stop: 01/25/23 20:32
[2023-01-09] MEDS: HYDROCODONE/ACETAMOPHEN 5/325MG TAB PO PRN ×4 (00:45→20:07)
[2023-01-09] MEDS: guaiFENesin SUGAR FREE 200 MG/10 ML UDC PO SCH ×4 (05:16→23:11)
--- NOTE | 2023-01-09 07:04 | XRay Report ---
SINGLE VIEW CHEST CLINICAL HISTORY: Follow-up pneumothorax. FINDINGS: An AP, portable, upright chest radiograph is compared to study dated 01/08/2023 and correlat ed with chest CT dated 12/27/2022. The examination is degraded by portable technique and apical lordoti c positioning. A 2-lead cardiac pacemaker is unchanged in position. The heart is enlarged noting ath erosclerotic calcification of the thoracic aorta. Emphysema and chronic interstitial thickening is si milar to previous. There is mild elevation of the right hemidiaphragm. Scarring/atelectasis is noted at the lung bases. There is trace residual right pleural effusion. No pneumothorax is seen. The skele katie structures are osteopenic. The bony thorax is grossly intact. IMPRESSION: 1. No residual pneumothorax is identified. 2. Trace residual right pleural effusion. 3. Cardiomegaly and cardiac pacemaker without radiographic evidence of congestive failure. 4. Emphysema. ACT 112: Negative or not required by law. Electronically signed by: Richie Freire M.D. 01/09/2023 7:02 AM
--- NOTE | 2023-01-09 07:18 | Pulmonology Progress Note ---
Date of Service January 09, 2023 Assessment & Plan (1) Hypoxia: (2) Pneumonia: (3) Thrombocytopenia: (4) Loculated pleural effusion: (5) COPD with emphysema: Plan Impression: 72-year-old male with diffuse large B-cell lymphoma currently undergoing chemotherapy admitted with delirium and pneumonia now with right- sided pleural effusion. -- Loculated right-sided pleural effusion Worse compared to CT chest 12/27/2022 Status post pigtail catheter placement 01/03/23, got 2 days MIST 2 protocol Chest tube removed 01/06/2023 Micro shows no growth till date Pathology was negative for malignancy, specimen did consist blood -- Pneumonia Right lower lobe Continue with antibiotics -- Acute hypoxic respiratory failure -> resolved Likely secondary to above Continue with O2 supplementation to keep oxygen saturation between 90-92% --COPD with emphysema Only on albuterol at home Patient does not seem to be in exacerbation -- Acute blood loss anemia Did get 2 units PRBC on 01/05/2023 I did give the patient tranexamic acid 2 g IV and lavage the right-sided pleural space with cold saline on 01/05/2023 -- Large B-cell lymphoma On chemotherapy Plan: Chest x-ray today shows minimal blunting of the right costophrenic angle. No clear lung infiltrate. Micro from the pleural fluid negative to date No further recommendation from pulmonary perspective. Will sign off. Please call directly with any questions. Case discussed with Dr. Benton Please note the above document was generated using voice recognition software. It may contain grammatical, syntax or spelling errors.Any formal questions or concerns about the content, text or information contained within the body of this dictation should be directly addressed to the provider for clarification. Admission and Anticipated Discharge Date Admission Date: December 26, 2022 Subjective Patient seen and examined at bedside. No acute distress, no adverse events overnight Patient's is also in the room. He was saturating 98-99% on room air Denies any headache, no nausea, no vomiting Poor appetite. Has been afebrile. Review of Systems Review of Systems: All systems reviewed & are unremarkable except as noted in Subjective Physical Exam Physical Exam: Constitutional: No acute distress, frail-appearing HEENT: EOMI, PERRLA Respiratory system: Decreased air entry on the right side, no wheeze, no rho nchi, mild crackles bilateral lower lobes CVS: S1-S2 positive, no murmurs or gallops Abdomen: Soft, nontender, nondistended, positive bowel sounds x4 Extremities: +2 pulses bilaterally radialis/ dorsalis pedis, no cyanosis, no edema Neuro: Awake alert oriented x3 Psych: Normal mood and affect G/U: No Cohudhary Skin: no rashes, warm and dry Lymphatic: no cervical or axillary lymphadenopathy Results & Data Results & Data Vital Signs (Past 12 Hours) Vital Signs Temp Pulse Pulse Pulse Resp BP Pulse Ox 01/09/23 03:57 36.2 C L 76 144/83 H 94 01/09/23 01:00 01/08/23 23:13 36.9 C 75 18 108/63 95 01/08/23 22:42 79 01/08/23 20:00 01/08/23 19:34 36.3 C L 72 18 102/67 96 O2 Del Method O2 Del Method 01/09/23 03:57 Room Air 01/09/23 01:00 Room Air 01/08/23 23:13 Room Air 01/08/23 22:42 01/08/23 20:00 Room Air 01/08/23 19:34 Room Air Laboratory Results 01/09/23 07:18 PG Care Time/CCT Total # of Minutes Spent Total Time Spent with Patient: Total time spent is greater than 50% in coordination of care (as documented) at patient's floor/unit and/or counseling patient: Coding Level of Care Code 20390 SUB INP/OBS CARE 2/35MIN Diagnoses Hypoxia R09.02 Pneumonia J18.9 Thrombocytopenia D69.6 Loculated pleural effusion J90 COPD with emphysema J43.9
[2023-01-09 08:38] LABS: BUN Creatinine Ratio 23.8 (10-20); Creatinine Clr Calc Pharmacy 56.8 ml/min; Est GFR (African American) 85.1 ml/min; Est GFR (Non-African American) 73.4 ml/min; Magnesium 1.6 mg/dl (1.7-2.4); Potassium 3.8 mmol/L (3.5-5.1)
[2023-01-09] MEDS: ATORVASTATIN 40 MG TAB PO SCH (08:44)
[2023-01-09] MEDS: METOPROLOL TARTRATE 50 MG TAB PO SCH ×2 (08:44→20:08)
[2023-01-09] MEDS: allopurinoL 300 MG TAB PO SCH (08:45)
[2023-01-09] MEDS: AMIODARONE 200 MG TAB PO SCH (08:45)
[2023-01-09] MEDS: PANTOprazole 40 MG TAB PO SCH (08:45)
[2023-01-09] MEDS: MAGNESIUM PO SCH ×4 (08:45→20:09)
[2023-01-09] MEDS: NYSTATIN PO SCH ×4 (08:45→20:09)
[2023-01-09] MEDS: LIDOCAINE VISCOUS PO SCH ×4 (08:45→20:09)
[2023-01-09] MEDS: MEGESTROL ACETATE 40 MG TAB PO SCH (08:45)
[2023-01-09] MEDS: [UNRECOGNIZED DRUG - OTHER] PO SCH ×4 (08:45→20:09)
[2023-01-09] MEDS: CEROVITE ADV FORMULA TAB PO SCH (08:45)
[2023-01-09] MEDS: ALUMINUM PO SCH ×4 (08:45→20:09)
[2023-01-09] MEDS: LIDOCAINE 5% 1 PATCH TD SCH (08:45)
[2023-01-09 10:13] LABS: Basophils # (auto) 0.01 K/uL (0-0.2); Basophils % (auto) 0.1 %; Eosinophils # (auto) 0.12 K/uL (0-0.50); Eosinophils % (auto) 0.9 %; Hematocrit (blood only) 29.1 % (42.0-52.0); Hemoglobin 9.1 g/dl (14.0-18.0); Immature Granulocytes # (auto) 0.03 K/uL (0.01-0.20); Immature Granulocytes % (auto) 0.2 %; Lymphocytes # (auto) 2.32 K/uL (1.2-3.4); Lymphocytes % (auto) 16.9 %; Mean Corpuscular Hemoglobin 27.2 pg (25.0-34.0); Mean Corpuscular Hgb Conc 31.3 g/dL (32.0-36.0); Mean Corpuscular Volume 87.1 fL (80.0-100.0); Monocytes % (auto) 32.1 %; Neutrophils # (auto) 6.82 K/uL (1.40-6.50); Neutrophils % (auto) 49.8 %; Platelet Count 136 K/uL (130-400); RBC Morphology Unremarkable; RDW Coefficient of Variation 21.2 % (11.5-14.5); RDW Standard Deviation 64.6 fL (36.4-46.3); Red Blood Count 3.34 M/uL (4.70-6.10)
--- NOTE | 2023-01-09 13:06 | Hospitalist Progress Note ---
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 He is being managed for the following: Acute metabolic and cephalopathy Likely secondary to excessive opioid use/polypharmacy -CT head, CTA head/neck without acute findings. Scheduled Flexeril changed to as needed Minimize narcotics as able Mentation back to baseline No more drowsiness and/or confusion Remains generally weak but otherwise no more confusion Acute metabolic and cephalopathy is resolved Will need placement for ongoing weakness and tiredness Will do more physical therapy and likely to need placement even though he wants to go home Hypoxia: Loculated right pleural effusion RLL pneumonia, previously noted on imaging CT Chest:Underlying emphysema, more significant in the lung apices. Mild right- sided pleural effusion with right lower lobe atelectasis versus residual infiltrate. Focal interstitial changes versus residual pneumonitis in the left lower lobe. No pneumothorax. Hypoxia likely multifactorial-pneumonia, overmedication with narcotics Currently on Augmentin, doxycycline--plan was to complete 7-day course Continues to have R-sided chest pain pleuritic, repeated chest Xray (01/01), and obtained procalcitonin (as WBC elevated) CXR c/w with R sided pl. effusion - reviewed personally Started on small dose lasix as thoracentesis difficult given his thrombocytopenia Right pleural effusion is not getting any better Pulmonary consulted-appreciate input and recommendation Status post right thoracentesis-loculated effusion and is status post chest tube placement Will have repeat CT in about 3 days and then depending on the fluid status the tube will be taken out Pleural fluid is exudative,Gram stain of the fluid remains unremarkable, AFB is pending Pathology of the fluid did not show any malignancy Drainage is bloody but not tierra blood in the chest x-ray showing improvement of the fluid Status post removal of the chest tube and the patient has been doing much better Chest x-ray from today shows clear airways, no accumulation of fluid and no pneumonia Pulmonary signed off denies any respiratory symptoms Diffuse B Cell Lymphoma of head/neck:s/p 1 cycle of RCEOP (11/18/22 - 11/21/22) Chronic myelomonocytic leukemia Chronic Thrombocytopenia Transfusion reaction to platelets transfusion: Following with Dr. Rojas - chemo on hold for now Soft tissue neck CT with necrotic lymph nodes are further decreased in size from prior exam Continue allopurinol for tumor lysis syndrome prophylaxis Planned chemotherapy as outpatient as soon as possible. Will have appointment with Dr. Rojas following discharge Acute anemia-hemoglobin dropped to 6.5 without any active bleeding-could be secondary to illness/dilution/hemolysis/lymphoma Will receive 2 units of blood transfusion today-if hemoglobin does not show much improvement will do further testing to rule out any bleeding Pretreatment with Benadryl, Tylenol and dexamethasone given Hemoglobin went up to 9.4 and the patient has been feeling much better Weakness is improved Likely discharge in a day or 2 Hemoglobin remained stable and the patient has been feeling much better Paroxysmal A fib Not a candidate Anticoagulation with significant thrombocytopenia/Bleeding risk/Recurrent falls Continue metoprolol, amiodarone Heart rate is controlled Chronic thrombocytopenia H/O ITP No acute bleeding issues Platelets count went down to 24 on eighth and 30th on ninth of this month Patient received 2 units of platelet pheresis and the platelet count is 79 as of 01/03/2023 S/p thoracentesis on 01/03/2023 Platelets have increased to 119 Platelet has been normalized at 133 as of 01/06/2023 Recent CBC and PRP were unremarkable Severe protein calorie malnutrition:Significant weight loss > 30 pounds since 08/17. Continue Megace Poor oral intake BMI 18 Encouraged to increase oral intake Frequent falls: Recent R hip fx s/p IM nail by Dr. Null 10/27/22 Fall precautions Continue PT OT Needs placement Advised to schedule for outpatient orthopedics follow-up upon discharge PT and OT are done and the patient will need to go to rehab If accepted to rehab he will be discharged home this afternoon Wanted to go home but later on changed his mind PAD: ABIs done on 03/17 showed R 0.87 and L 0.85 at rest concerning for occlusive disease to b/l SFA and tibial artery along with L iliac disease. Arterial Doppler:Moderate atherosclerotic plaque within the bilateral lower extremities. Suspected occlusion of the distal left posterior tibial artery, otherwise patent vessels. Monophasic flow within the bilateral calf vessels Continue statin Heel wounds-POA wound care nurse consulted Supportive care Waffle boots. H/o Dysphagia Video swallow:few episodes of trace silent aspiration with the thin liquid barium only.= Aspiration precautions Appreciate speech therapy recommendations Continue minced and moist, easy to chew diet with thin liquids Magic mouthwash as needed SSS S/P PPM in 2018 COPD: c/w home inhalers. no signs of exacerbation DVT Px: SCDs Re: Thrombocytopenia Code Status: DNR/DNI Disposition Needs placement Discussed with the and the patient Continue PT and OT and likely to need placement Admission and Anticipated Discharge Date Admission Date: December 26, 2022 Subjective 01/03/2023 The patient was seen and examined in telemetry unit in presence of the He has been feeling much better Denies any shortness of breath or chest pain at rest Remains generally weak and lethargic 01/04/2023 The patient was seen and examined in telemetry unit He has been complaining of pain in the right lower chest at the site of chest tube with minimal shortness of breath at rest Denies any nausea and or vomiting Been generally weak and lethargic 01/05/2023 The patient was seen and examined in telemetry unit He has been complaining of pain in the right side of the chest where the tube was placed Complains to have more weakness but denies any increasing shortness of breath at rest Has some nonspecific abdominal discomfort 01/06/2023 The patient was seen and examined in telemetry unit He has been feeling much better today and the chest tube is out Denies any significant symptoms except minimal pain at the chest tube site No shortness of breath at rest, no nausea and or vomiting 01/07/2023 The patient was seen and examined in telemetry unit in presence of the He has minimal complaints today involving the right heel and the chest pain is better since the tube is out Denies any shortness of breath, any fever and or chills He wants to go home 01/08/2023 The patient was seen and examined in telemetry unit in presence of the The patient remains stable but extremely weak and lethargic Keeps falling with minimal ambulation-Will need to go to rehab 01/09/2023 The patient was seen and examined in telemetry unit in presence of the He has been feeling much better but remains weak and lethargic Has not been able to ambulate himself Likely needs to be placed Review of Systems Review of Systems: All systems reviewed and are unremarkable except as noted below Physical Exam Physical Exam: Sitting on a chair without any acute distress Constitutional: average body habitus; not ill appearing Eyes: PERRL, conjunctivae normal, anicteric sclerae ENMT: external ear and nose normal, oropharynx normal Neck: trachea midline, no thyromegaly Respiratory: no respiratory distress Auscultation: + diminished lung sounds and + crackles (Bibasilar crackles with decreased breath sounds on the right); no wheezes Cardiovascular: Rate/Rhythm: regular rate and regular rhythm; not tachycardic Heart Sounds: normal S1 and normal S2; no murmur Extremities: no edema Gastrointestinal (Abdomen): Inspection/Auscultation: abdomen not distended Percussion/Palpation: abdomen soft; abdomen nontender Musculoskeletal: No acute arthritis involving any joint Neurologic: Alert, awake and oriented x3. Generally weak. Unsteady in gait Lymphatic: no cervical or axillary lymphadenopathy Results & Data Results & Data Vital Signs (Past 12 Hours) Vital Signs Temp Pulse Pulse Resp BP Pulse Ox O2 Del Method 01/09/23 08:00 36.8 C 77 18 132/72 99 Room Air 01/09/23 08:00 79 01/09/23 08:00 Room Air 01/09/23 03:57 36.2 C L 76 144/83 H 94 Room Air Laboratory Results Short CBC 01/09/23 Range/Units 07:18 WBC 13.70 H (4.8-10.8) K/ul Hgb 9.1 L (14.0-18.0) g/dl Hct 29.1 L (42.0-52.0) % Plt Count 136 (130-400) K/uL BMP 01/09/23 07:18 Sodium 138 Potassium 3.8 Chloride 107 Carbon Dioxide 25 BUN 24 H Creatinine 1.01 Glucose 105 H Calcium 8.0 L Medications Administered Current Inpatient Medications Acetaminophen (Acetaminophen 325 Mg Tab) 650 mg PO Q4H PRN PRN Reason: Mild Pain Stop: 02/07/23 15:22 Last Admin: 01/08/23 15:39 Dose: 650 mg Hydrocodone Bitart/Acetaminophen (Hydrocodone/Acetamophen 5/325mg Tab) 1 tab PO Q6H PRN PRN Reason: Moderate to Severe Pain Stop: 01/14/23 12:08 Last Admin: 01/09/23 06:56 Dose: 1 tab Albuterol (Albuterol Hfa 8 Gm Inhaler) 1 puffs INH QID PRN PRN Reason: sob Stop: 01/25/23 19:41 Allopurinol (Allopurinol 300 Mg Tab) 300 mg PO QAM [facility] Stop: 01/26/23 08:59 Last Admin: 01/09/23 08:45 Dose: 300 mg Amiodarone HCl (Amiodarone 200 Mg Tab) 200 mg PO DAILY [facility] Stop: 01/26/23 08:59 Last Admin: 01/09/23 08:45 Dose: 200 mg Atorvastatin Calcium (Atorvastatin 40 Mg Tab) 40 mg PO QAM [facility] Stop: 01/26/23 08:59 Last Admin: 01/09/23 08:44 Dose: 40 mg Nystatin 30 ml/ Lidocaine HCl 30 ml/ Al Hydrox/Mg Hydrox/Simethicone 30 ml/ [employer] 1 each 0 ml PO QID [facility] Stop: 01/27/23 12:59 Last Admin: 01/09/23 08:45 Dose: 10 ml Cyclobenzaprine HCl (Cyclobenzaprine Hcl 10 Mg Tab) 10 mg PO BID PRN PRN Reason: muscle spasms Stop: 01/25/23 20:59 Furosemide (Furosemide 20 Mg Tab) 20 mg PO [id number] [facility] Stop: 01/31/23 16:59 Last Admin: 01/04/23 08:01 Dose: 20 mg Guaifenesin (Guaifenesin Sugar Free 200 Mg/10 Ml Udc) 200 mg PO Q6H [facility] Stop: 01/31/23 11:29 Last Admin: 01/09/23 08:48 Dose: Not Given Hydromorphone HCl (Hydromorphone Inj 0.5 Mg/0.5 Ml Syr) 0.25 mg IV Q6H PRN PRN Reason: Pain Stop: 01/18/23 10:35 Last Admin: 01/06/23 00:16 Dose: 0.25 mg Lidocaine (Lidocaine 5% 1 Patch) 1 patch TD QAM [facility] Stop: 02/03/23 06:24 Last Admin: 01/09/23 08:45 Dose: Not Given Megestrol Acetate (Megestrol Acetate 40 Mg Tab) [facility] Stop: 01/26/23 08:59 Last Admin: 01/09/23 08:45 Dose: 40 mg Metoprolol Tartrate (Metoprolol Tartrate 50 Mg Tab) 50 mg PO BID [facility] Stop: 01/26/23 08:59 Last Admin: 01/09/23 08:44 Dose: 50 mg Miscellaneous (Remove Lidoderm Patch) 1 each N/A DAILY@2100 [facility] Stop: 02/03/23 20:59 Last Admin: 01/08/23 20:23 Dose: Not Given Multivitamins/Minerals (Cerovite Adv Formula Tab) 1 tab PO [facility] Stop: 01/26/23 08:59 Last Admin: 01/09/23 08:45 Dose: 1 tab Ondansetron HCl (Ondansetron Inj 2 Mg/Ml 2 Ml Vial) 4 mg IV Q6H PRN PRN Reason: Nausea Stop: 01/25/23 20:32 Pantoprazole Sodium (Pantoprazole 40 Mg Tab) 40 mg PO [facility] Stop: 01/26/23 08:59 Last Admin: 01/09/23 08:45 Dose: 40 mg Polyethylene Glycol (Polyethylene (Miralax) 17 Gm Pack) 17 gm PO DAILY PRN PRN Reason: Constipation Stop: 01/25/23 20:32
[2023-01-10] MEDS: HYDROCODONE/ACETAMOPHEN 5/325MG TAB PO PRN ×2 (02:28→08:14)
[2023-01-10] MEDS: guaiFENesin SUGAR FREE 200 MG/10 ML UDC PO SCH (05:22)
[2023-01-10] MEDS: METOPROLOL TARTRATE 50 MG TAB PO SCH (08:12)
[2023-01-10] MEDS: allopurinoL 300 MG TAB PO SCH (08:13)
[2023-01-10] MEDS: ALUMINUM PO SCH (08:13)
[2023-01-10] MEDS: MEGESTROL ACETATE 40 MG TAB PO SCH (08:13)
[2023-01-10] MEDS: CEROVITE ADV FORMULA TAB PO SCH (08:13)
[2023-01-10] MEDS: PANTOprazole 40 MG TAB PO SCH (08:13)
[2023-01-10] MEDS: LIDOCAINE VISCOUS PO SCH (08:13)
[2023-01-10] MEDS: MAGNESIUM PO SCH (08:13)
[2023-01-10] MEDS: NYSTATIN PO SCH (08:13)
[2023-01-10] MEDS: ATORVASTATIN 40 MG TAB PO SCH (08:13)
[2023-01-10] MEDS: AMIODARONE 200 MG TAB PO SCH (08:13)
[2023-01-10] MEDS: [UNRECOGNIZED DRUG - OTHER] PO SCH (08:13)
[2023-01-10] MEDS: LIDOCAINE 5% 1 PATCH TD SCH (08:14)
--- NOTE | 2023-01-10 10:48 | Hospitalist Progress Note ---
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 He is being managed for the following: Acute metabolic and cephalopathy Likely secondary to excessive opioid use/polypharmacy -CT head, CTA head/neck without acute findings. Scheduled Flexeril changed to as needed Minimize narcotics as able Mentation back to baseline No more drowsiness and/or confusion Remains generally weak but otherwise no more confusion Acute metabolic and cephalopathy is resolved Will need placement for ongoing weakness and tiredness Will do more physical therapy and likely to need placement even though he wants to go homFor the last few days he has been confirmed He is confined to a single room and he will be going home today He will need a bedside commode Hypoxia: Loculated right pleural effusion RLL pneumonia, previously noted on imaging CT Chest:Underlying emphysema, more significant in the lung apices. Mild right- sided pleural effusion with right lower lobe atelectasis versus residual infiltrate. Focal interstitial changes versus residual pneumonitis in the left lower lobe. No pneumothorax. Hypoxia likely multifactorial-pneumonia, overmedication with narcotics Currently on Augmentin, doxycycline--plan was to complete 7-day course Continues to have R-sided chest pain pleuritic, repeated chest Xray (01/01), and obtained procalcitonin (as WBC elevated) CXR c/w with R sided pl. effusion - reviewed personally Started on small dose lasix as thoracentesis difficult given his thrombocytopenia Right pleural effusion is not getting any better Pulmonary consulted-appreciate input and recommendation Status post right thoracentesis-loculated effusion and is status post chest tube placement Will have repeat CT in about 3 days and then depending on the fluid status the tube will be taken out Pleural fluid is exudative,Gram stain of the fluid remains unremarkable, AFB is pending Pathology of the fluid did not show any malignancy Drainage is bloody but not tierra blood in the chest x-ray showing improvement of the fluid Status post removal of the chest tube and the patient has been doing much better Chest x-ray from today shows clear airways, no accumulation of fluid and no pneumonia Pulmonary signed off denies any respiratory symptoms Discharged home this morning Diffuse B Cell Lymphoma of head/neck:s/p 1 cycle of RCEOP (11/18/22 - 11/21/22) Chronic myelomonocytic leukemia Chronic Thrombocytopenia Transfusion reaction to platelets transfusion: Following with Dr. Rojas - chemo on hold for now Soft tissue neck CT with necrotic lymph nodes are further decreased in size from prior exam Continue allopurinol for tumor lysis syndrome prophylaxis Planned chemotherapy as outpatient as soon as possible. Will have appointment with Dr. Rojas following discharge Acute anemia-hemoglobin dropped to 6.5 without any active bleeding-could be secondary to illness/dilution/hemolysis/lymphoma Will receive 2 units of blood transfusion today-if hemoglobin does not show much improvement will do further testing to rule out any bleeding Pretreatment with Benadryl, Tylenol and dexamethasone given Hemoglobin went up to 9.4 and the patient has been feeling much better Weakness is improved Likely discharge in a day or 2 Hemoglobin remained stable and the patient has been feeling much better Paroxysmal A fib Not a candidate Anticoagulation with significant thrombocytopenia/Bleeding risk/Recurrent falls Continue metoprolol, amiodarone Heart rate is controlled Chronic thrombocytopenia H/O ITP No acute bleeding issues Platelets count went down to 24 on eighth and 30th on ninth of this month Patient received 2 units of platelet pheresis and the platelet count is 79 as of 01/03/2023 S/p thoracentesis on 01/03/2023 Platelets have increased to 119 Platelet has been normalized at 133 as of 01/06/2023 Recent CBC and PRP were unremarkable Severe protein calorie malnutrition:Significant weight loss > 30 pounds since 08/17. Continue Megace Poor oral intake BMI 18 Encouraged to increase oral intake Frequent falls: Recent R hip fx s/p IM nail by Dr. Null 10/27/22 Fall precautions Continue PT OT Needs placement Advised to schedule for outpatient orthopedics follow-up upon discharge PT and OT are done and the patient will need to go to rehab If accepted to rehab he will be discharged home this afternoon Wanted to go home but later on changed his mind Will need a bedside commode to prevent falls PAD: ABIs done on 03/17 showed R 0.87 and L 0.85 at rest concerning for occlusive disease to b/l SFA and tibial artery along with L iliac disease. Arterial Doppler:Moderate atherosclerotic plaque within the bilateral lower extremities. Suspected occlusion of the distal left posterior tibial artery, o therwise patent vessels. Monophasic flow within the bilateral calf vessels Continue statin Heel wounds-POA wound care nurse consulted Supportive care Waffle boots. H/o Dysphagia Video swallow:few episodes of trace silent aspiration with the thin liquid barium only.= Aspiration precautions Appreciate speech therapy recommendations Continue minced and moist, easy to chew diet with thin liquids Magic mouthwash as needed SSS S/P PPM in 2018 COPD: c/w home inhalers. no signs of exacerbation DVT Px: SCDs Re: Thrombocytopenia Code Status: DNR/DNI Disposition Needs placement Discussed with the and the patient Continue PT and OT and likely to need placement Admission and Anticipated Discharge Date Admission Date: December 26, 2022 Subjective 01/03/2023 The patient was seen and examined in telemetry unit in presence of the He has been feeling much better Denies any shortness of breath or chest pain at rest Remains generally weak and lethargic 01/04/2023 The patient was seen and examined in telemetry unit He has been complaining of pain in the right lower chest at the site of chest tube with minimal shortness of breath at rest Denies any nausea and or vomiting Been generally weak and lethargic 01/05/2023 The patient was seen and examined in telemetry unit He has been complaining of pain in the right side of the chest where the tube was placed Complains to have more weakness but denies any increasing shortness of breath at rest Has some nonspecific abdominal discomfort 01/06/2023 The patient was seen and examined in telemetry unit He has been feeling much better today and the chest tube is out Denies any significant symptoms except minimal pain at the chest tube site No shortness of breath at rest, no nausea and or vomiting 01/07/2023 The patient was seen and examined in telemetry unit in presence of the He has minimal complaints today involving the right heel and the chest pain is better since the tube is out Denies any shortness of breath, any fever and or chills He wants to go home 01/08/2023 The patient was seen and examined in telemetry unit in presence of the The patient remains stable but extremely weak and lethargic Keeps falling with minimal ambulation-Will need to go to rehab 01/09/2023 The patient was seen and examined in telemetry unit in presence of the He has been feeling much better but remains weak and lethargic Has not been able to ambulate himself Likely needs to be placed 01/10/2023 The patient was seen and examined in telemetry unit in presence of the He wants to go home today Remains weak and lethargic and is almost confined to one room He will need a bedside commode on discharge Review of Systems Review of Systems: All systems reviewed and are unremarkable except as noted below Physical Exam Physical Exam: Sitting on a chair without any acute distress Constitutional: average body habitus; not ill appearing Eyes: PERRL, conjunctivae normal, anicteric sclerae ENMT: external ear and nose normal, oropharynx normal Neck: trachea midline, no thyromegaly Respiratory: no respiratory distress Auscultation: + diminished lung sounds and + crackles (Bibasilar crackles with decreased breath sounds on the right); no wheezes Cardiovascular: Rate/Rhythm: regular rate and regular rhythm; not tachycardic Heart Sounds: normal S1 and normal S2; no murmur Extremities: no edema Gastrointestinal (Abdomen): Inspection/Auscultation: abdomen not distended Percussion/Palpation: abdomen soft; abdomen nontender Musculoskeletal: No acute arthritis involving any joint Neurologic: .Alert and awake. He is pleasantly confused remains extremely weak and lethargic Lymphatic: no cervical or axillary lymphadenopathy Results & Data Results & Data Vital Signs (Past 12 Hours) Vital Signs Temp Pulse Pulse Resp BP Pulse Ox O2 Del Method 01/10/23 07:48 75 01/10/23 07:48 Room Air 01/10/23 07:19 36.5 C 81 18 139/78 95 Room Air 01/10/23 03:15 36.7 C 78 18 107/64 93 Room Air 01/09/23 23:14 36.8 C 86 18 133/74 93 Room Air
--- NOTE | 2023-01-10 18:33 | Discharge Summary ---
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 Was recent admitted to our service earlier in November and was treated with rocephin and then Augmentin for UTI and seen by cardiology regarding new atrial fibrillation diagnosis. Not a candidate for aspirin or anticoagulation given underlying thrombocytopenia. Diltiazem and midodrine were discontinued at this time. Patient was discharged to [facility] for further care but patient left AMA on 12/21/22 desiring to return home. History primarily obtained from chart review and at bedside due to patient's delirium. States that he was doing fine until yesterday when he seemed easily agitated and refused to take his medication this morning. Has been mumbling more than usual and yelling at her, which is unusual. Still weak from hospitalization and was participating with home PT when they noted him to be pale and mumbling while speaking. Poor appetite. Brought to ED for further evaluation. Received all normal medictions yesterday except for running out of amiodarone. Patient admits to some SOB and weakness. Knows his name and location but easily distracted during interview, pulling at his bedsheet and my shirt. Needs continual redirection to keep oxygen mask on. Unable to obtain remainder of ROS due to patient's altered mentation. Did discuss general health decline with , who became tearful and feels extremely overwhelmed. Palliative service did meet with patient and his on 11/29/22 and at that time they were not interested in pursuing hospice at that time. Admission Exam Per Admitting Provider Physical Exam: General Appearance:WD/WN, vitals as above, appears thin, frail, intermittently agitated and pulling at bedsheet and oxygen mask Head: normocephalic, atraumatic Eyes:normal inspection, PERRL, conjunctivae normal, anicteric sclerae ENT: external ear and nose normal, oropharynx normal Neck: normal visual inspection, trachea midline, no thyromegaly Respiratory:decreased respiratory effort, coarse breath sounds R>L, no wheezing, wearing oxymask. No accessory muscle use Cardiovascular: tachycardic rate, regular rhythm, no murmur appreciated, normal peripheral pulses, no BLE edema. Vessels: no JVD Chest: normal inspection of chest Abdomen/GI: normal bowel sounds, soft, nontender, no hepatosplenomegaly Extremities/Musculoskeletal: no cyanosis or clubbing, extremities motor strength 5/5 Neurologic: PERRL, EOMI, accommodation nl, no face palsy, unable to follow commands at this time but moving all extremities spontaneously Psychiatric:oriented to person and place, not to situation. Requiring frequent redirection Skin: no rashes, normal color, warm/dry Principal Diagnosis Acute metabolic and cephalopathy, right lower lobe pneumonia, right pleural effusion status post chest tube drainage, diffuse B-cell lymphoma, paroxysmal atrial fibrillation Discharge Exam Sitting on a chair without any acute distress Constitutional average body habitus; not ill appearing Eyes PERRL, conjunctivae normal, anicteric sclerae ENMT external ear and nose normal, oropharynx normal Neck trachea midline, no thyromegaly Respiratory no respiratory distress Auscultation: + diminished lung sounds and + crackles (Bibasilar crackles with decreased breath sounds on the right); no wheezes Cardiovascular Rate/Rhythm: regular rate and regular rhythm; not tachycardic Heart Sounds: normal S1 and normal S2; no murmur Extremities: no edema Gastrointestinal (Abdomen) Inspection/Auscultation: abdomen not distended Percussion/Palpation: abdomen soft; abdomen nontender Lymphatic no cervical or axillary lymphadenopathy Discharge Data Allergies Allergy/AdvReac Type Severity Reaction Status Date / Time cephalexin Allergy Intermediate vomiting, Verified 12/26/22 16:16 diarrhea oxycodone AdvReac Intermediate agitation Uncoded 12/28/22 08:52 Consultations 12/26/22 18:48 ED Decision to Admit Stat 01/02/23 06:53 Consult Pulmonology Routine Ordered Studies 12/26/22 14:08 CT angio head wo/w Stat CT angio neck with con Stat 12/26/22 14:38 CT soft tissue neck w con Stat 12/26/22 20:18 CT chest diagnostic wo con Routine 01/03/23 11:45 US point of care ultrasound Urgent Hospital Course (1) Acute metabolic encephalopathy: (2) Pneumonia: (3) Weakness: (4) HTN (hypertension): (5) Tachy-boris syndrome: (6) Thrombocytopenia: (7) B-cell lymphoma: (8) COPD (chronic obstructive pulmonary disease): (9) CMML (chronic myelomonocytic leukemia): (10) Chronic ischemic heart disease: (11) Paroxysmal atrial fibrillation: Plan Patient is a 72 yr male with H/O 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 He is being managed for the following: Acute metabolic and cephalopathy Likely secondary to excessive opioid use/polypharmacy -CT head, CTA head/neck without acute findings. Scheduled Flexeril changed to as needed Minimize narcotics as able Mentation back to baseline No more drowsiness and/or confusion Remains generally weak but otherwise no more confusion Acute metabolic and cephalopathy is resolved Will need placement for ongoing weakness and tiredness Will do more physical therapy and likely to need placement even though he wants to go homFor the last few days he has been confirmed He is confined to a single room and he will be going home today He will need a bedside commode Hypoxia: Loculated right pleural effusion RLL pneumonia, previously noted on imaging CT Chest:Underlying emphysema, more significant in the lung apices. Mild right- sided pleural effusion with right lower lobe atelectasis versus residual infiltrate. Focal interstitial changes versus residual pneumonitis in the left lower lobe. No pneumothorax. Hypoxia likely multifactorial-pneumonia, overmedication with narcotics Currently on Augmentin, doxycycline--plan was to complete 7-day course Continues to have R-sided chest pain pleuritic, repeated chest Xray (01/01), and obtained procalcitonin (as WBC elevated) CXR c/w with R sided pl. effusion - reviewed personally Started on small dose lasix as thoracentesis difficult given his thrombocyt openia Right pleural effusion is not getting any better Pulmonary consulted-appreciate input and recommendation Status post right thoracentesis-loculated effusion and is status post chest tube placement Will have repeat CT in about 3 days and then depending on the fluid status the tube will be taken out Pleural fluid is exudative,Gram stain of the fluid remains unremarkable, AFB is pending Pathology of the fluid did not show any malignancy Drainage is bloody but not tierra blood in the chest x-ray showing improvement of the fluid Status post removal of the chest tube and the patient has been doing much better Chest x-ray from today shows clear airways, no accumulation of fluid and no pneumonia Pulmonary signed off denies any respiratory symptoms Discharged home this morning Diffuse B Cell Lymphoma of head/neck:s/p 1 cycle of RCEOP (11/18/22 - 11/21/22) Chronic myelomonocytic leukemia Chronic Thrombocytopenia Transfusion reaction to platelets transfusion: Following with Dr. Rojas - chemo on hold for now Soft tissue neck CT with necrotic lymph nodes are further decreased in size from prior exam Continue allopurinol for tumor lysis syndrome prophylaxis Planned chemotherapy as outpatient as soon as possible. Will have appointment with Dr. Rojas following discharge Acute anemia-hemoglobin dropped to 6.5 without any active bleeding-could be secondary to illness/dilution/hemolysis/lymphoma Will receive 2 units of blood transfusion today-if hemoglobin does not show much improvement will do further testing to rule out any bleeding Pretreatment with Benadryl, Tylenol and dexamethasone given Hemoglobin went up to 9.4 and the patient has been feeling much better Weakness is improved Likely discharge in a day or 2 Hemoglobin remained stable and the patient has been feeling much better Paroxysmal A fib Not a candidate Anticoagulation with significant thrombocytopenia/Bleeding risk/Recurrent falls Continue metoprolol, amiodarone Heart rate is controlled Chronic thrombocytopenia H/O ITP No acute bleeding issues Platelets count went down to 24 on eighth and 30th on ninth of this month Patient received 2 units of platelet pheresis and the platelet count is 79 as of 01/03/2023 S/p thoracentesis on 01/03/2023 Platelets have increased to 119 Platelet has been normalized at 133 as of 01/06/2023 Recent CBC and PRP were unremarkable Severe protein calorie malnutrition:Significant weight loss > 30 pounds since 08/17. Continue Megace Poor oral intake BMI 18 Encouraged to increase oral intake Frequent falls: Recent R hip fx s/p IM nail by Dr. Null 10/27/22 Fall precautions Continue PT OT Needs placement Advised to schedule for outpatient orthopedics follow-up upon discharge PT and OT are done and the patient will need to go to rehab If accepted to rehab he will be discharged home this afternoon Wanted to go home but later on changed his mind Will need a bedside commode to prevent falls PAD: ABIs done on 03/17 showed R 0.87 and L 0.85 at rest concerning for occlusive disease to b/l SFA and tibial artery along with L iliac disease. Arterial Doppler:Moderate atherosclerotic plaque within the bilateral lower extremities. Suspected occlusion of the distal left posterior tibial artery, otherwise patent vessels. Monophasic flow within the bilateral calf vessels Continue statin Heel wounds-POA wound care nurse consulted Supportive care Waffle boots. H/o Dysphagia Video swallow:few episodes of trace silent aspiration with the thin liquid barium only.= Aspiration precautions Appreciate speech therapy recommendations Continue minced and moist, easy to chew diet with thin liquids Magic mouthwash as needed SSS S/P PPM in 2019 COPD: c/w home inhalers. no signs of exacerbation DVT Px: SCDs Re: Thrombocytopenia Code Status: DNR/DNI Disposition Needs placement Discussed with the and the patient Continue PT and OT and likely to need placement Total Time Total Time Spent Total Time Spent (In Minutes): 45 minutes Discharge Plan Discharge Items Patient Disposition: Home - Home Health Services Reason For Visit: HAP, HYPOXIA, DELIRIUM Discharge Diagnosis: Acute metabolic and cephalopathy, right lower lobe pneumonia, right pleural effusion status post chest tube drainage, diffuse B-cell lymphoma, paroxysmal atrial fibrillation Condition on Discharge: Fair Activity: Resume your previous activity Non-emergency contact: Primary Care Provider Call non-emergency contact if: you have any medication questions and your symptoms worsen Follow-up/Referrals: [facility] [Primary Care Provider] - (Please keep your appointment for tomorrow) Diet: Regular Addtl Attending Provider Instructions: Please take extreme precautions to avoid falls Take extra time to initiate any activities Take your medications as advised and keep appointments with your healthcare providers Please make an appointment with your oncologist as soon as possible Pending Studies at Discharge: No Stand-Alone Forms: My [employer], Smoking Cessation Medications and DC Order Prescriptions: Continued Ear Drops (carbamide peroxide) 6.5 % Drops 5 drp OTR BID PRN (Reason: earwax) Qty: 15 0RF Rx Instructions: Use twice a day up to 4 days as needed Cerovite Senior 0.4 mg-300 mcg- 250 mcg Tablet 1 tab PO QAM Qty: 30 0RF cyclobenzaprine 10 mg Tablet 10 mg PO BID Qty: 60 0RF atorvastatin 40 mg Tablet 40 mg PO QAM Qty: 30 0RF polyethylene glycol 3350 [Miralax] 17 gram Powder In Packet 17 g PO QAM PRN (Reason: Constipation) Qty: 14 0RF acetaminophen 500 mg Tablet 500 mg PO Q6H PRN (Reason: Pain) Qty: 60 0RF pantoprazole [Protonix] 40 mg tablet,delayed release (DR/EC) 40 mg PO QAM Qty: 30 0RF Rx Instructions: 30 mins before breakfast on an empty stomach metoprolol tartrate [Lopressor] 50 mg tablet 50 mg PO BID Qty: 60 0RF allopurinol 300 mg Tablet 300 mg PO QAM Qty: 30 0RF albuterol sulfate 90 mcg/actuation Hfa Aerosol Inhaler 1 inh INHALATION QID PRN (Reason: sob) Qty: 6.7 0RF ondansetron 4 mg Tablet,Disintegrating 4 mg PO Q8H PRN (Reason: Nausea) Qty: 10 0RF hydrocodone-acetaminophen 7.5-325 mg Tablet 1 tab PO Q8H PRN (Reason: Pain) megestrol 40 mg Tablet 40 mg PO QAM Qty: 30 0RF amiodarone 200 mg tablet 200 mg PO DAILY Discharge Orders: Discharge Order (Routine); Ordered 01/10/23 Ordered By: Lilly Benton Admission Data Admit Date/Time: 12/26/22 18:44 Attending Provider: Lilly Benton Admit Provider: Vicki Simon Primary Care Provider: [facility] Other Providers: Stefano Kramer ; Vicki Simon ; Mason Navarro ; Brayan Carvajal Other Interventions: Discharge Summary Assessment (RN) Last Done: 01/10/23 10:46
--- NOTE | 2023-01-14 12:55 | Coding Query ---
CODING QUERY To promote full compliance with coding requirements relating to patient care, provider participation is requested in all cases of remote medical coder uncertainty. Please assist us with the question(s) below: Coding Question(s): Beginning on the 12/28 Progress Note, there is documentation of, "Heel wounds-POA", and, "unstageable heel ulcers bilaterally". Please specify below, regarding the unstageable heel ulcers bilaterally: ( x ) Pressure Ulcers ( ) Non-Pressure Ulcers ( ) Other: Please Specify Physician's Response(s): Thank you Gem Koehler Principal Diagnosis: "that condition established after study, to be chiefly responsible for occasioning the admission of the patient to the hospital for care." Co-Existing Principal Diagnosis: "when two or more diagnoses equally meet the criteria for principal diagnosis as determined by the circumstances of admission, diagnostic work up, and/or therapy provided, and the Alphabetic Index, Tabular List, or another coding guideline does not provide sequencing direction, any one of the diagnoses may be sequenced first." "When the physician has documented what appears to be a current diagnosis in the body of the record, but has not included the diagnosis in the final diagnostic statement, the physician should be asked whether the diagnosis should be added." (Source Coding [facility] 2 QTR90. p3-4) CRUZ
--- NOTE | 2023-01-14 12:57 | Coding Query ---
CODING QUERY To promote full compliance with coding requirements relating to patient care, provider participation is requested in all cases of surgical coder uncertainty. Please assist us with the question(s) below: Coding Question(s): Please specify below, in your clinical opinion, the diagnosis most responsible for occasioning the inpatient admission: ( x ) Acute Metabolic Encephalopathy ( ) Pneumonia ( ) Other: Please Specify Physician's Response(s): Thank you Gem Koehler Principal Diagnosis: "that condition established after study, to be chiefly responsible for occasioning the admission of the patient to the hospital for care." Co-Existing Principal Diagnosis: "when two or more diagnoses equally meet the criteria for principal diagnosis as determined by the circumstances of admission, diagnostic work up, and/or therapy provided, and the Alphabetic Index, Tabular List, or another coding guideline does not provide sequencing direction, any one of the diagnoses may be sequenced first." "When the physician has documented what appears to be a current diagnosis in the body of the record, but has not included the diagnosis in the final diagnostic statement, the physician should be asked whether the diagnosis should be added." (Source Coding Clinic 2 QTR90. p3-4) CRUZ
--- NOTE | 2023-01-14 13:02 | Coding Query ---
CODING QUERY To promote full compliance with coding requirements relating to patient care, provider participation is requested in all cases of medical billing coder uncertainty. Please assist us with the question(s) below: Coding Question(s): The 01/04/23 Pulmonary Progress Note documents, "Chest x-ray from today shows increase in size of the right-sided pneumothorax Pleural effusion is significantly improved. The chest x-ray was taken while the chest tube was clogged. That is likely the reason for increase in size of the pneumothorax I personally drained the chest tube with sterile saline. There was intermittent bubbling appreciated following that on the Diya drainage container". Please specify below, regarding the clogged chest tube: ( ) this is complication of the chest tube ( x ) this is not a complication of the chest tube ( ) Other: Please Specify Physician's Response(s): Thank you Gem Koehler Principal Diagnosis: "that condition established after study, to be chiefly responsible for occasioning the admission of the patient to the hospital for care." Co-Existing Principal Diagnosis: "when two or more diagnoses equally meet the criteria for principal diagnosis as determined by the circumstances of admission, diagnostic work up, and/or therapy provided, and the Alphabetic Index, Tabular List, or another coding guideline does not provide sequencing direction, any one of the diagnoses may be sequenced first." "When the physician has documented what appears to be a current diagnosis in the body of the record, but has not included the diagnosis in the final diagnostic statement, the physician should be asked whether the diagnosis should be added." (Source Coding Clinic 2 QTR90. p3-4) CRUZ
--- NOTE | 2023-01-14 13:06 | Coding Query ---
CODING QUERY To promote full compliance with coding requirements relating to patient care, provider participation is requested in all cases of hard tile setter uncertainty. Please assist us with the question(s) below: Coding Question(s): The 01/06/23 Pulmonary Progress Note documents, " Acute blood loss anemia Did get 2 units PRBC on 01/05/2023 I did give the patient tranexamic acid 2 g IV and lavage the right-sided pleural space with cold saline on 01/05/2023". There is no documentation of the description of the 01/05/23 procedure for lavage of the right-sided pleural space with cold saline. Please document the description of the procedure done on 01/05/23 below: Physician's Response(s): Thank you Gem Koehler Principal Diagnosis: "that condition established after study, to be chiefly responsible for occasioning the admission of the patient to the hospital for care." Co-Existing Principal Diagnosis: "when two or more diagnoses equally meet the criteria for principal diagnosis as determined by the circumstances of admission, diagnostic work up, and/or therapy provided, and the Alphabetic Index, Tabular List, or another coding guideline does not provide sequencing direction, any one of the diagnoses may be sequenced first." "When the physician has documented what appears to be a current diagnosis in the body of the record, but has not included the diagnosis in the final diagnostic statement, the physician should be asked whether the diagnosis should be added." (Source Coding Clinic 2 QTR90. p3-4) CRUZ
== END 2023-01-10 11:27 | disposition home health service (06) | DRG 917 ==
LOC: ED 13:46 → 4W 18:44 → SUATTDRO 18:44 → 4W 20:45 → 3W 12-28 14:49 → 2S 01-02 13:15

== ENCOUNTER 2023-04-05 12:18 | Inpatient (IN) ==
[2023-04-05] MEDS ORDERED: SODIUM CHLORIDE 0.9% 1000ML 1,000 ML IV ONE (13:09)
[2023-04-05] MEDS ORDERED: ONDANSETRON INJ 2 MG/ML 2 ML VIAL IV STA (13:09)
[2023-04-05] MEDS ORDERED: MoRPHine SULFATE 4 MG/ML 1 ML CARP\\VIAL IV STA ×2 (13:09→15:01)
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
--- NOTE | 2023-04-05 13:34 | XRay Report ---
SINGLE VIEW CHEST CLINICAL HISTORY: Dyspnea. FINDINGS: An AP, portable, upright chest radiograph is compared to study dated 02/17/2023. A right int ernal jugular central venous infusion port is unchanged in position, as is a 2-lead cardiac pacemaker which partially obscures the left upper chest. The heart is enlarged noting atherosclerotic calcific ation of the thoracic aorta. There is pulmonary vascular congestion. Bilateral airspace opacities lik enrique represent interstitial edema. Emphysema and chronic interstitial thickening is similar to previou s. There is a layering left pleural effusion with left basilar consolidation. This is new from previo us. No pneumothorax is seen. The skeletal structures are osteopenic. The bony thorax is grossly intac t. IMPRESSION: 1. Cardiomegaly and cardiac pacemaker without evidence of congestive failure. 2. Bilateral airspace opacities likely represent pulmonary edema. 3. Layering left pleural effusion with left basilar consolidation. This is new from previous. Correla te clinically for evidence of a superimposed pneumonia. Radiographic follow-up to resolution is recom mended. 4. Emphysema. ACT 112: Negative or not required by law. Electronically signed by: Richie Freire M.D. 04/05/2023 1:32 PM
[2023-04-05 13:55] LABS: Albumin Globulin Ratio 1.4 (0.9-2); Albumin Level 3.4 gm/dl (3.4-5.0); BUN Creatinine Ratio 17.5 (10-20); Bilirubin,Total 0.5 mg/dl (0.2-1.0); Calcium 7.8 mg/dl (8.6-10.3); Creatinine Clr Calc Pharmacy 57.1 ml/min; Est GFR (African American) 88.8 ml/min; Est GFR (Non-African American) 76.6 ml/min; Globulin 2.4 gm/dl (2.5-4.0); Hematocrit (blood only) 30.8 % (42.0-52.0); Hemoglobin 10.1 g/dl (14.0-18.0); Magnesium 1.9 mg/dl (1.7-2.4); Mean Corpuscular Hemoglobin 28.3 pg (25.0-34.0); Mean Corpuscular Hgb Conc 32.8 g/dL (32.0-36.0); Mean Corpuscular Volume 86.3 fL (80.0-100.0); Platelet Count 66 K/uL (130-400); Potassium 3.4 mmol/L (3.5-5.1); RDW Coefficient of Variation 18.6 % (11.5-14.5); RDW Standard Deviation 59.3 fL (36.4-46.3); Red Blood Count 3.57 M/uL (4.70-6.10); Total Protein 5.8 gm/dl (6.0-8.3)
[2023-04-05 14:01] LABS: Troponin I High Sensitivity 11.1 pg/ml (0-20)
[2023-04-05 14:03] LABS: Basophils # (auto) 0.01 K/uL (0-0.2); Basophils % (auto) 0.1 %; Eosinophils % (auto) 1.1 %; Immature Granulocytes # (auto) 0.08 K/uL (0.01-0.20); Immature Granulocytes % (auto) 0.5 %; Lymphocytes # (auto) 1.88 K/uL (1.2-3.4); Lymphocytes % (auto) 10.7 %; Monocytes # (auto) 9.26 K/uL (0.11-0.59); Monocytes % (auto) 52.5 %; Neutrophils # (auto) 6.22 K/uL (1.40-6.50); Neutrophils % (auto) 35.1 %; Nucleated RBC # (auto) 0.03 K/uL (0-0.12); Nucleated RBC % (auto) 0.2 %; Poikilocytosis Present; Polychromasia 1+; White Blood Count 17.65 K/ul (4.8-10.8)
[2023-04-05] MEDS ORDERED: CEFEPIME 2,000 MG/20 ML VIAL IV STA (14:04)
[2023-04-05] MEDS ORDERED: CALCIUM GLUCONATE 1,000 MG/60 ML BAG IV STA (14:04)
[2023-04-05] MEDS ORDERED: OPTIRAY 320 125ml IV ONE (14:33)
--- NOTE | 2023-04-05 14:57 | CT Scan Report ---
CT angio chest PE protocol CLINICAL HISTORY: PE TECHNIQUE: Multidetector row helical CT of the chest was performed with angiographic protocol. Knutson l and sagittal reformations were obtained. Coronal and sagittal MIPS were obtained from the axial harry a set and were submitted for review. Automated dose lowering techniques and/or adjustment according to patient size were utilized for this exam. CT DOSE: 823.64 mGy.cm Comparison: Comparison is made to CT chest 12/27/2022 FINDINGS: Lungs and pleura: Diffuse centrilobular emphysema is seen most prominent in the upper lobes. Intersti tial thickening is seen. There is a loculated left pleural effusion. Heart and pericardium: Heart size is normal. No pericardial effusion. Severe atherosclerotic disease is seen. Vessels: No evidence of pulmonary embolism. Mediastinum and nohemy: Subcentimeter lymph nodes are seen. Chest wall and lower neck: Unremarkable. Abdomen: Unremarkable. Bones: Subacute fractures of the right 10th and 11th ribs are seen. No acute fractures are noted. IMPRESSION: 1. No acute abnormality and in particular no evidence of pulmonary embolus. 2. Interval resolution of previously noted right pleural effusion and development of a loculated lef t pleural effusion which is moderate in size with associated atelectasis. 3. Stable emphysema. ACT 112: Negative or not required by law. Electronically signed by: Kvng Delatorre M.D. 04/05/2023 2:56 PM
[2023-04-05] MEDS ORDERED: ALBUT/IPRATROP 3MG/0.5MG NEB 3 ML VIAL NEB STA (14:58)
--- NOTE | 2023-04-05 15:03 | CT Scan Report ---
CT SCAN OF THE ABDOMEN AND PELVIS WITH IV CONTRAST CLINICAL HISTORY: Upper abdominal pain. COMPARISON STUDY: Abdominal CT dated 02/18/2023. PET/CT dated 02/23/2023. TECHNIQUE: Following the IV administration of 120 cc of Optiray 320, CT scan of the abdomen and pelv is is performed from the lung bases to the proximal femora. Images are reviewed in the axial, sagitta l, and coronal planes. IV contrast was administered without complication. A dose lowering technique w as utilized adhering to the principles of ALARA. FINDINGS: Lung bases: The heart is enlarged noting a small pericardial effusion. Pacemaker leads are in place. The coronary arteries a densely calcified. A thick-walled peripherally enhancing pleural collection a t the left lung base measures approximately 15.5 x 7 cm in axial dimension. This is new from , and there is consolidation of the left lung base. Scarring/atelectasis is seen at the right lung b ase. There is a tiny hiatal hernia. Liver: The contrast-enhanced liver is normal in size, contour, and attenuation. There is no intrahepa tic biliary ductal dilatation. The hepatic veins and portal veins are patent. Gallbladder: Unremarkable. Spleen: Normal in size and attenuation. Pancreas: Mildly atrophic and grossly unremarkable. Adrenal glands: Unremarkable. Kidneys: The contrast enhanced kidneys are normal in size and without hydronephrosis. The kidneys enh ance symmetrically. A 14 mm cyst is seen on the right. Additional subcentimeter cortical hypodensitie s also likely represent cysts but are too small for definitive characterization. Abdominal vasculature: There is advanced atherosclerotic calcification and ectasia of the abdominal a sarika. An infrarenal abdominal aortic aneurysm measures up to 3.2 cm. Bowel: There is mild to moderate colonic fecal retention. No bowel obstruction is seen. The appendix is normal as visualized. Peritoneum: There is no intraperitoneal free air or abdominal ascites. Lymphadenopathy: None. Pelvic viscera: Evaluation of the pelvis is significantly degraded by streak artifact from orthopedic hardware in the proximal femora. The prostate gland is diminutive and heterogeneous. The bladder is mildly distended comment a wall appears thickened/trabeculated indicating chronic outlet obstruction. Fluid is seen along the right internal canal. Skeletal structures: The skeletal structures are osteopenic. Indeterminate lucency in the right iliac wing seen on image #225 is unchanged. There is a subacute appearing fracture of the right proximal f emur with intertrochanteric intramedullary nail is in place. Chronic deformity and postsurgical servin es noted in the left proximal femur. Anterior right pubic ring fractures and left acetabular fracture are subacute in appearance but new from 02/18/2023. There are subacute appearing right posterior rib fractures. IMPRESSION: 1. No acute infectious or inflammatory findings are identified in the abdomen or pelvis. 2. There are subacute appearing fractures of the right anterior pubic ring as well as a subacute appe aring fracture of the left anterior acetabulum. These were not clearly seen previously. Correlate cli nically. 3. There is a large pleural collection at the left lung base which is new from 02/23/2023 with consoli dation at the left lung base. Correlate clinically for evidence of pneumonia. The sterility of the pl eural collection cannot be assessed by imaging. 4. Cardiomegaly and cardiac pacemaker. 5. There is a 3.2 cm infrarenal abdominal aortic aneurysm. 6. Additional findings as above. ACT 112: Negative or not required by law. Electronically signed by: Richie Freire M.D. 04/05/2023 3:02 PM
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
[2023-04-05 15:45] LABS: INR 1.2 (0.9-1.1); Partial Thromboplastin Ratio 1.1; Partial Thromboplastin Time 32.2 Seconds (21.0-31.0); Prothrombin Time 13.1 Seconds (9.0-12.0)
[2023-04-05] MEDS ORDERED: ALBUTEROL HFA 8 GM INHALER INH PRN (18:19)
[2023-04-05] MEDS ORDERED: HYDROCODONE/ACETAMINOPHEN 7.5/325MG TAB PO STA (18:19)
[2023-04-05] MEDS ORDERED: CARBAMIDE PEROXIDE 6.5% 15 ML BTL OTR PRN (18:19)
[2023-04-05] MEDS ORDERED: ACETAMINOPHEN 325 MG TAB PO PRN (18:23)
[2023-04-05] MEDS ORDERED: POLYETHYLENE (MIRALAX) 17 GM PACK PO PRN (18:23)
[2023-04-05] MEDS ORDERED: ONDANSETRON INJ 2 MG/ML 2 ML VIAL IV PRN (18:23)
[2023-04-05] MEDS ORDERED: ALBUT/IPRATROP 3MG/0.5MG NEB 3 ML VIAL NEB PRN (18:23)
[2023-04-05] MEDS: CEFEPIME 2,000 MG in SYRINGE 0 ML IV SCH (19:55)
[2023-04-05] MEDS: CYCLOBENZAPRINE HCL 10 MG TAB PO SCH (20:51)
[2023-04-05] MEDS: METOPROLOL TARTRATE 50 MG TAB PO SCH (20:51)
[2023-04-06] MEDS: HYDROCODONE/ACETAMINOPHEN 7.5/325MG TAB PO PRN ×4 (01:18→20:14)
[2023-04-06] MEDS: CEFEPIME 2,000 MG in SYRINGE 0 ML IV SCH ×3 (02:16→21:28)
[2023-04-06 07:15] LABS: BUN Creatinine Ratio 15.7 (10-20); Calcium 8.8 mg/dl (8.6-10.3); Creatinine Clr Calc Pharmacy 41.4 ml/min; Est GFR (African American) 64.1 ml/min; Est GFR (Non-African American) 55.3 ml/min; Potassium 4.2 mmol/L (3.5-5.1)
[2023-04-06 07:36] LABS: Hematocrit (blood only) 30.2 % (42.0-52.0); Hemoglobin 9.8 g/dl (14.0-18.0); Mean Corpuscular Hemoglobin 28.4 pg (25.0-34.0); Mean Corpuscular Hgb Conc 32.5 g/dL (32.0-36.0); Mean Corpuscular Volume 87.5 fL (80.0-100.0); Platelet Count 67 K/uL (130-400); RDW Coefficient of Variation 18.2 % (11.5-14.5); RDW Standard Deviation 58.4 fL (36.4-46.3); Red Blood Count 3.45 M/uL (4.70-6.10); White Blood Count 10.52 K/ul (4.8-10.8)
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
[2023-04-06] MEDS: CYCLOBENZAPRINE HCL 10 MG TAB PO SCH ×2 (08:16→20:16)
[2023-04-06] MEDS: METOPROLOL TARTRATE 50 MG TAB PO SCH ×2 (08:16→20:13)
[2023-04-06] MEDS: CEROVITE ADV FORMULA TAB PO SCH (08:16)
[2023-04-06] MEDS: ATORVASTATIN 40 MG TAB PO SCH (08:16)
[2023-04-06] MEDS: PANTOprazole 40 MG TAB PO SCH (08:16)
[2023-04-06] MEDS: AMIODARONE 200 MG TAB PO SCH (08:17)
[2023-04-06] MEDS: MEGESTROL ACETATE 40 MG TAB PO SCH (08:17)
[2023-04-06] MEDS: DOXYCYCLINE HYCLATE 100 MG in DEXTROSE 5% 100 ML IV SCH ×2 (09:30→21:28)
[2023-04-06] MEDS: allopurinoL 300 MG TAB PO SCH (10:00)
--- NOTE | 2023-04-06 13:17 | Hospitalist Progress Note ---
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 LLL pneumonia Loculated pleural effusion SOB, cough, WBC 17.65 K, Chest CTA with development of a loculated left pleural effusion which is moderate in size with associated atelectasis Was admitted with R sided loculated effusion in December 2022 requiring chest tube placement. Pleural fluid was exudative, pathology did not show any malignancy Continue Cefepime given possible HAP and doxycycline was added to cover atypicals Clinically a little better Appreciate pulmonary input and recommendation for thoracentesis and possible Pleurx catheter placement The patient is agreeable to thoracentesis and placement of plerax cath if indicated We will get PT and OT evaluation prior to discharge Diffuse B Cell Lymphoma of head/neck:s/p 1 cycle of RCEOP (11/18/22 - 11/21/22) Chronic myelomonocytic leukemia: Chronic Thrombocytopenia: Transfusion reaction/to platelets transfusion: Following with Dr. Rojas - chemo on hold for now and patient just began receiving radiation to neck yesterday (due again tomorrow with Dr. Bermeo) Soft tissue neck CT with necrotic lymph nodes are further decreased in size from prior exam Continue allopurinol for tumor lysis syndrome prophylaxis Scheduled for radiotherapy today as an outpatient Inform Dr. Bermeo to continue with the therapy Paroxysmal A fib Following with cardiology. Continue amiodarone 200mg daily Not a candidate for aspirin or anticoagulation with history of thrombocytopenia Heart rate is controlled Chronic thrombocytopenia, h/o ITP Plt 66 today. Monitor with daily CBC. Consider transfusion for plt <20 and bleeding or <10 Platelet remains more than 50,000 Severe protein calorie malnutrition: Significant weight loss previously but appetite improving on Megace per . Still appears cachectic. Boost PRN PAD: c/w statin. ABIs done on 03/17 showed R 0.87 and L 0.85 at rest concerning for occlusive disease to b/l SFA and tibial artery along with L iliac disease Arterial Doppler:Moderate atherosclerotic plaque within the bilateral lower extremities. Suspected occlusion of the distal left posterior tibial artery, otherwise patent vessels. Monophasic flow within the bilateral calf vessels Unstageable pressure ulcers, bilateral: following with wound care. Per notes, un able to debride eschar due to significant PAD. soil expert consulted-appreciate input and recommendation H/o Dysphagia Continue minced and moist, easy to chew diet with thin liquids SSS S/P PPM in 2019 COPD: c/w home inhalers. no signs of exacerbation Goals of care; counseling/discussion:during previous discussions with palliative, patient and family not interested in hospice at this time Disposition PCP: Dr. Bradshaw Code Status: DNR/DNI VTE Prophylaxis: SCDs, avoid chemical vte ppx given thrombocytopenia Dispo: admitted to PCU Admission and Anticipated Discharge Date Admission Date: April 05, 2023 Subjective 04/06/2023 The patient was seen and examined in telemetry unit He was admitted with productive of greenish-yellow phlegm and more shortness of breath from home He has been feeling little better since admission Denies any chest pain and/or palpitation, no fever and or chills, no nausea and or vomiting He is agreeable to go for thoracentesis Review of Systems Review of Systems: All systems reviewed and are unremarkable except as noted below Respiratory: No shortness of breath at rest Physical Exam Physical Exam: Lying in bed without any acute distress Constitutional: + ill appearing and average body habitus Eyes: PERRL, conjunctivae normal, anicteric sclerae ENMT: external ear and nose normal, oropharynx normal Respiratory: no respiratory distress Auscultation: + diminished lung sounds (Bilaterally but more on the left side with occasional crackles) and + crackles (Occasional left) Cardiovascular: Rate/Rhythm: regular rate and regular rhythm; not tachycardic Heart Sounds: normal S1, normal S2 and + murmur Extremities: no edema Gastrointestinal (Abdomen): Inspection/Auscultation: normal bowel sounds; abdomen not distended Percussion/Palpation: abdomen soft; abdomen nontender Musculoskeletal: No acute arthritis involving the joint Neurologic: normal touch/pain/proprioception and moves all extremities; no focal motor deficits Lymphatic: no cervical or axillary lymphadenopathy Results & Data Results & Data Vital Signs (Past 12 Hours) Vital Signs Temp Pulse Pulse Resp BP Pulse Ox O2 Del Method 04/06/23 11:10 36.5 C 79 20 105/65 91 Nasal Cannula 04/06/23 07:39 78 04/06/23 07:34 36.6 C 70 19 139/71 92 Nasal Cannula 04/06/23 02:58 36.3 C L 84 18 136/79 90 Nasal Cannula O2 Flow Rate 04/06/23 11:10 04/06/23 07:39 04/06/23 07:34 4 04/06/23 02:58 4 Laboratory Results Short CBC 04/05/23 04/06/23 Range/Units 12:49 05:46 WBC 17.65 H 10.52 (4.8-10.8) K/ul Hgb 10.1 L 9.8 L (14.0-18.0) g/dl Hct 30.8 L 30.2 L (42.0-52.0) % Plt Count 66 L 67 L (130-400) K/uL BMP 04/05/23 04/06/23 12:49 05:46 Sodium 135 L 136 Potassium 3.4 L 4.2 D Chloride 107 105 Carbon Dioxide 22 24 BUN 17 20 Creatinine 0.97 1.27 D Glucose 115 H 90 Calcium 7.8 L 8.8 Liver Function 04/05/23 Range/Units 12:49 Total Bilirubin 0.5 (0.2-1.0) mg/dl AST 11 L (13-39) U/L ALT 9 (7-52) U/L Alkaline Phosphatase 54 (34-104) U/L Albumin 3.4 (3.4-5.0) gm/dl Medications Administered Current Inpatient Medications Acetaminophen (Acetaminophen 325 Mg Tab) 650 mg PO Q4H PRN PRN Reason: Pain or Fever Stop: 05/05/23 18:22 Hydrocodone Bitart/Acetaminophen (Hydrocodone/Acetaminophen 7.5/325mg Tab) 1 tab PO Q6H PRN PRN Reason: pain (scale score 7-10) Stop: 04/19/23 18:18 Last Admin: 04/06/23 07:53 Dose: 1 tab Albuterol (Albuterol Hfa 8 Gm Inhaler) 1 puffs INH QID PRN PRN Reason: sob Stop: 05/05/23 18:18 Albuterol (Albut/Ipratrop 3mg/0.5mg Neb 3 Ml Vial) 3 ml NEB QIDR PRN; Protocol PRN Reason: Shortness Of Breath Or Wheezing Stop: 05/05/23 18:22 Allopurinol (Allopurinol 300 Mg Tab) 300 mg PO QAM JOÃO Stop: 05/06/23 08:59 Last Admin: 04/06/23 10:00 Dose: Not Given Amiodarone HCl (Amiodarone 200 Mg Tab) 200 mg PO QAM JOÃO Stop: 05/06/23 08:59 Last Admin: 04/06/23 08:17 Dose: 200 mg Atorvastatin Calcium (Atorvastatin 40 Mg Tab) 40 mg PO QAM JOÃO Stop: 05/06/23 08:59 Last Admin: 04/06/23 08:16 Dose: 40 mg Carbamide Peroxide (Carbamide Peroxide 6.5% 15 Ml Btl) 5 drops OTR BID PRN PRN Reason: earwax Stop: 04/09/23 18:18 Cyclobenzaprine HCl (Cyclobenzaprine Hcl 10 Mg Tab) 10 mg PO BID JOÃO Stop: 05/05/23 20:59 Last Admin: 04/06/23 08:16 Dose: 10 mg Heparin Sodium (Porcine) (Heparin 100 Unit/Ml 5ml Flush) 5 ml FLUSH PRN PRN PRN Reason: Flush Stop: 05/06/23 00:14 Doxycycline Hyclate 100 mg/ (Dextrose) 110 mls @ 50 mls/hr IV Q12H JOÃO Stop: 04/13/23 09:14 Last Infusion: 04/06/23 11:42 Dose: Infused Cefepime HCl 2,000 mg/ Syringe 20 mls @ 5 mls/min IV Q12H [facility]; Protocol Stop: 04/13/23 21:59 Megestrol Acetate (Megestrol Acetate 40 Mg Tab) 40 mg PO QAM [facility] Stop: 05/06/23 08:59 Last Admin: 04/06/23 08:17 Dose: 40 mg Metoprolol Tartrate (Metoprolol Tartrate 50 Mg Tab) 50 mg PO BID [facility] Stop: 05/05/23 20:59 Last Admin: 04/06/23 08:16 Dose: 50 mg Multivitamins/Minerals (Cerovite Adv Formula Tab) 1 tab PO QAM [facility] Stop: 05/06/23 08:59 Last Admin: 04/06/23 08:16 Dose: 1 tab Ondansetron HCl (Ondansetron Inj 2 Mg/Ml 2 Ml Vial) 4 mg IV Q6H PRN PRN Reason: Nausea Stop: 05/05/23 18:22 Pantoprazole Sodium (Pantoprazole 40 Mg Tab) 40 mg PO DAILY [facility] Stop: 05/06/23 08:59 Last Admin: 04/06/23 08:16 Dose: 40 mg Polyethylene Glycol (Polyethylene (Miralax) 17 Gm Pack) 17 gm PO DAILY PRN PRN Reason: Constipation Stop: 05/05/23 18:22
[2023-04-06] MEDS ORDERED: CEFEPIME 2,000 MG in SYRINGE 0 ML IV SCH (14:00)
--- NOTE | 2023-04-06 14:11 | Electrocardiogram Report ---
Test Reason : Blood Pressure : / mmHG Vent. Rate : 091 BPM Atrial Rate : 091 BPM P-R Int : 204 ms QRS Dur : 086 ms QT Int : 396 ms P-R-T Axes : 000 -08 -01 degrees QTc Int : 487 ms Atrial-paced rhythm Low voltage QRS Cannot rule out Inferior infarct , age undetermined Abnormal ECG When compared with ECG of 26-DEC-2022 13:52, Electronic atrial pacemaker has replaced Sinus rhythm Confirmed by Jeremiah Aleman ([id number]) on 04/06/2023 2:11:13 PM Referred By: REFERRED SELF Confirmed By:Fabricio Aleman
--- NOTE | 2023-04-06 14:52 | Procedure Note ---
Procedure Note Date of Service April 06, 2023 Note Procedure: 14 Amharic pigtail catheter placement, ultrasound-guided Indication: Loculated left pleural effusion Consent risk and benefits were discussed with the patient. She agreed. Written consent was verified prior to commencement of the procedure. Rooming House Inspector Dr. Navarro Estimated blood loss: Less than 5 mL Anesthesia: 5 mL 1% lidocaine without epinephrine locally. Procedure: Patient was placed in a seated position. Limited thoracic ultrasound was performed bilaterally. No significant effusion was identified on the right. A loculated pleural effusion was identified on the left with multiple septations. Site appropriate for catheter placement was identified and marked. The patient was placed in a semiupright seated position. Skin cleansed using chlorhexidine and a sterile field established. Using 1% lidocaine without epinephrine, the skin, subcutaneous tissues, and overlying anesthetized. We were able to aspirate appearing fluid with the finder needle. The finder needle was then withdrawn. A small skin patsy was made with a scalpel. An 18-gauge needle was then advanced on a similar line until I was able to aspirate fluid. The syringe was withdrawn leaving the needle in place. A wire was passed through the needle and then the needle was withdrawn leaving the wire in the pleural space. A 14 Amharic dilator was then passed over the wire to dilate the skin and soft tissues. This passed with ease. The dilator was removed leaving the wire in place. A 14 Amharic pigtail catheter was then loaded on a straightening catheter and advanced over the wire into the pleural space. The pipe straightener and wire were removed leaving the pigtail catheter in place. The locking mechanism was secured in place. A three-way stopcock was attached. A total of 200 mL of bloody fluid was aspirated for microbiologic and cytologic analysis. The tube was attached to suction and approximately 600 mL of bloody fluid was collected. The skater catheter fixation system was attached to the chest wall and the catheter secured. Catheter was attached to suction at 20 cm of water. Post procedure chest x-ray is pending. The patient tolerated the procedure well. Given the multiple loculations identified on ultrasound, will initiate the patient on mist 2 protocol and await microbiologic and cytologic analysis of the pleural fluid Coding CPT Codes Pulmonary/Thoracic - Pulmonary and Thoracic: 60760 Tube thoracostomy ([id number]) Pulmonary/Thoracic - Pulmonary and Thoracic: 76272 US, Chest, real time with imaging documentation ([id number]) [facility] [place] Procedure Codes (Charges) Pulmonary/Thoracic Procedure 1: Pulmonary and Thoracic: 65329 Tube thoracostomy Procedure 2: Pulmonary and Thoracic: 75492 US, Chest, real time with imaging documentation
--- NOTE | 2023-04-06 15:38 | XRay Report ---
XR chest 1V portable HISTORY: Status post thoracentesis. COMPARISON: Chest CTA 04/05/2023. Chest x-ray 04/05/2023. FINDINGS: Interval placement of a left basilar pleural catheter which is likely in good position. The small left pleural effusion has decreased in size in the interval. Left basilar densities have also improved. No pneumothorax. The heart remains mildly enlarged. Linear densities within the left midlun g zone may represent subsegmental atelectasis. There is a left-sided pacemaker. A right jugular Port- A-Cath terminates at the SVC. Interval improvement in the pulmonary edema. IMPRESSION: 1. Left basilar pleural catheter appears in good position. No pneumothorax. 2. Decrease in size in the small left pleural effusion with improved aeration within the left lung ba se. 3. Interval improvement in the pulmonary edema. ACT 112: Negative or not required by law. Electronically signed by: Kyle Barker M.D. 04/06/2023 3:36 PM
[2023-04-06 15:43] LABS: Total Protein Pleural Fluid 4.4 gm/dl
[2023-04-06 16:07] LABS: Appearance Pleural Fluid Cloudy; Color Pleural Fluid Red; Eosinophils, Fluid 4 %; Lymphocytes, Fluid 26 %; Mono,Macrophage,Mesothelial 34 %; Neutrophils, Fluid 36 %; RBC Pleural Fluid Auto 93000 /uL; Source Pleural Fluid Left Lung; WBC Pleural Fluid Auto 2045 /uL
[2023-04-06] MEDS: ALTEPLASE, RECOMBINANT 10 MG in SYRINGE 50 ML IPL SCH (16:42)
[2023-04-06] MEDS: DORNASE ALFA 5 ML in SYRINGE 25 ML IPL SCH (17:43)
[2023-04-07] MEDS: HYDROCODONE/ACETAMINOPHEN 7.5/325MG TAB PO PRN ×3 (02:19→20:22)
[2023-04-07] MEDS: ALTEPLASE, RECOMBINANT 10 MG in SYRINGE 50 ML IPL SCH ×2 (04:05→15:50)
[2023-04-07] MEDS: DORNASE ALFA 5 ML in SYRINGE 25 ML IPL SCH ×2 (05:05→16:50)
[2023-04-07] MEDS: HEPARIN 100 UNIT/ML 5ML FLUSH FLUSH PRN (06:27)
[2023-04-07 07:22] LABS: BUN Creatinine Ratio 18.5 (10-20); Calcium 8.9 mg/dl (8.6-10.3); Creatinine Clr Calc Pharmacy 44.2 ml/min; Est GFR (African American) 69.3 ml/min; Est GFR (Non-African American) 59.8 ml/min
[2023-04-07 07:38] LABS: Hematocrit (blood only) 34.1 % (42.0-52.0); Hemoglobin 10.9 g/dl (14.0-18.0); Mean Corpuscular Volume 87.7 fL (80.0-100.0); Platelet Count 110 K/uL (130-400); RDW Coefficient of Variation 18.8 % (11.5-14.5); RDW Standard Deviation 60.4 fL (36.4-46.3); Red Blood Count 3.89 M/uL (4.70-6.10); White Blood Count 10.95 K/ul (4.8-10.8)
[2023-04-07 07:39] LABS: Basophils # (auto) 0.02 K/uL (0-0.2); Basophils % (auto) 0.2 %; Dohle Bodies 1+; Echinocytes 1+; Eosinophils # (auto) 0.25 K/uL (0-0.50); Eosinophils % (auto) 2.3 %; Immature Granulocytes # (auto) 0.03 K/uL (0.01-0.20); Immature Granulocytes % (auto) 0.3 %; Lymphocytes # (auto) 2.45 K/uL (1.2-3.4); Lymphocytes % (auto) 22.4 %; Monocytes # (auto) 4.07 K/uL (0.11-0.59); Monocytes % (auto) 37.2 %; Neutrophils # (auto) 4.13 K/uL (1.40-6.50); Neutrophils % (auto) 37.6 %
--- NOTE | 2023-04-07 07:43 | XRay Report ---
XR chest 1V portable CLINICAL HISTORY: Chest tube ? MIST 2 protocol TECHNIQUE: Single frontal radiograph of the chest was obtained. Comparison: Comparison is made to chest radiograph 04/06/2023 FINDINGS: Dual lead pacemaker is seen. A left chest tube and right portacatheter are stable. The cardiomediasti nal silhouette is stable. Mild atelectasis is seen in the left lung base, improved from prior exam. P reviously noted pulmonary edema has improved. Minimal residual left pleural effusion. IMPRESSION: Stable chest tube with minimal residual left pleural effusion with associated atelectasis. Previously noted pulmonary edema has essentially resolved. ACT 112: Negative or not required by law. Electronically signed by: Kvng Delatorre M.D. 04/07/2023 7:41 AM
--- NOTE | 2023-04-07 08:26 | Pulmonology Progress Note ---
Date of Service April 07, 2023 Assessment & Plan (1) Pleural effusion: (2) Pleuritic chest pain: Plan Impression: 73-year-old male with history of lymphoma on chemotherapy and chroni c low platelets admitted with shortness of breath cough and elevated white blood cell count with left-sided partially loculated effusion. He is status post 14 Nigerian pigtail catheter placement on the left 04/06/2023 exudative effusion characteristics Recommendations: 1. Pleural effusion: Exudative and bloody this morning. Await cytology. Patient radiographically appears to be responding to intrapleural fibrinolytics so will complete course. 2. Agree with antibiotics de-escalate if cultures remain negative. 3. Chest pain: Secondary to pigtail catheter. Will place on Toradol 30 mg IV every 6 as needed. Continue hydrocodone. You. Feel free to contact us with questions or concerns Admission and Anticipated Discharge Date Admission Date: April 05, 2023 Subjective Patient seen and examined. EMR reviewed. Patient states his respiratory status is improved but he is having significant chest pain associated with the pigtail catheter. His current pain medication is inadequate. He is unable to cough or take a deep breath. He denies fevers chills. Patient is undergoing mist 2 protocol. Review of Systems Review of Systems: All systems reviewed & are unremarkable except as noted in Subjective Physical Exam Constitutional: + ill appearing, + thin and + cachectic; not in distress Neck: trachea midline, no thyromegaly Respiratory: + dullness to percussion; no respiratory distress, no labored breathing, no cough and not tachypneic Auscultation: + diminished lung sounds Cardiovascular: RRR, no murmur, no edema Gastrointestinal (Abdomen): normal bowel sounds, soft, nontender, no hepatosplenomegaly Skin: no rashes, warm and dry Lymphatic: no cervical lymphadenopathy Results & Data Results & Data Vital Signs (Past 12 Hours) Vital Signs Temp Pulse Pulse Resp BP Pulse Ox O2 Del Method 04/07/23 08:17 36.3 C L 89 16 103/66 90 Nasal Cannula 04/07/23 03:27 36.5 C 96 H 18 113/58 L 93 Nasal Cannula 04/06/23 23:08 37 C 75 18 111/69 92 Nasal Cannula 04/06/23 22:32 73 O2 Flow Rate 04/07/23 08:17 3.5 04/07/23 03:27 3 04/06/23 23:08 3 04/06/23 22:32 chest tube output: 1.1 L serosanguineous fluid Laboratory Results 04/07/23 05:49 04/07/23 05:49 Pleural fluid studies: Cytology pending Gram stain many white blood cells no organisms, culture pending Differential: 36% neutrophils, 26% lymphocytes, 4% eosinophils, 34% mesothelial cells Pleural pH 7.35 Pleural LDH 854 Pleural total protein 4.4 Pleural glucose 68 Diagnostic Findings Chest x-ray from today was reviewed. The basilar pigtail catheter on the left is in good position. There appears to have been significant reduction in the pleural effusion. No pneumothorax. PG Care Time/CCT Total # of Minutes Spent Total Time Spent with Patient: Total time spent is greater than 50% in coordination of care (as documented) at patient's floor/unit and/or counseling patient: Coding Level of Care Code 46159 SUB INP/OBS CARE 2/35MIN Diagnoses Pleural effusion J90 Pleuritic chest pain R07.81
[2023-04-07] MEDS ORDERED: KETOROLAC TROMETHAMINE 15 MG/ML VIAL IV PRN (08:34)
[2023-04-07] MEDS: AMIODARONE 200 MG TAB PO SCH (08:43)
[2023-04-07] MEDS: CEROVITE ADV FORMULA TAB PO SCH (08:43)
[2023-04-07] MEDS: allopurinoL 300 MG TAB PO SCH (08:43)
[2023-04-07] MEDS: METOPROLOL TARTRATE 50 MG TAB PO SCH ×2 (08:43→20:22)
[2023-04-07] MEDS: PANTOprazole 40 MG TAB PO SCH (08:44)
[2023-04-07] MEDS: ATORVASTATIN 40 MG TAB PO SCH (08:44)
[2023-04-07] MEDS: MEGESTROL ACETATE 40 MG TAB PO SCH (08:44)
[2023-04-07] MEDS: CYCLOBENZAPRINE HCL 10 MG TAB PO SCH ×2 (08:51→20:22)
[2023-04-07] MEDS: DOXYCYCLINE HYCLATE 100 MG in DEXTROSE 5% 100 ML IV SCH ×2 (08:52→21:44)
[2023-04-07] MEDS: CEFEPIME 2,000 MG in SYRINGE 0 ML IV SCH ×2 (09:00→21:44)
--- NOTE | 2023-04-07 21:45 | Hospitalist Progress Note ---
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 LLL pneumonia Loculated pleural effusion Chest CTA - loculated left pleural effusion Hx of this on the right Continue Cefepime, doxycycline Appreciate pulmonary recs/services Diffuse B Cell Lymphoma of head/neck:s/p 1 cycle of RCEOP (11/18/22 - 11/21/22) Chronic myelomonocytic leukemia: Chronic Thrombocytopenia: Transfusion reaction/to platelets transfusion: Following with Dr. Rojas - chemo on hold for now and patient just began receiving radiation to neck yesterday (due again with Dr. Bermeo) Soft tissue neck CT with necrotic lymph nodes are further decreased in size from prior exam Continue allopurinol for tumor lysis syndrome prophylaxis Paroxysmal A fib Following with cardiology. Continue amiodarone 200mg daily Chronic thrombocytopenia, h/o ITP stable Severe protein calorie malnutrition: Significant weight loss previously but appetite improving on Megace per . PAD: c/w statin. ABIs done on 03/17 showed R 0.87 and L 0.85 at rest concerning for occlusive disease to b/l SFA and tibial artery along with L iliac disease Arterial Doppler:Moderate atherosclerotic plaque within the bilateral lower extremities. Suspected occlusion of the distal left posterior tibial artery, otherwise patent vessels. Monophasic flow within the bilateral calf vessels Unstageable pressure ulcers, bilateral: following with wound care. Per notes, unable to debride eschar due to significant PAD. news technical director consulted-appreciate input and recommendation H/o Dysphagia Continue minced and moist, easy to chew diet with thin liquids SSS S/P PPM in 2019 COPD: c/w home inhalers. no signs of exacerbation Disposition PCP: Dr. Bradshaw Code Status: DNR/DNI VTE Prophylaxis: SCDs, avoid chemical vte ppx given thrombocytopenia Dispo: admitted to PCU Admission and Anticipated Discharge Date Admission Date: April 05, 2023 Subjective Seen this AM, PleurX catheter in place. Denies pain except with deep breaths. No acute concerns. Review of Systems Review of Systems: All systems reviewed & are unremarkable except as noted in Subjective Physical Exam Physical Exam: General: Alert, oriented. No acute distress, frail gentleman Psych: Appropriate mood and affect Neuro: difficulty moving HEENT: NC/AT CV: RRR Resp: hesitates with taking deep breaths Abdomen: Soft, nontender, nondistended. Extremities: No edema in lower extremities bilaterally. Results & Data Results & Data Vital Signs (Past 12 Hours) Vital Signs Temp Pulse Pulse Resp BP Pulse Ox O2 Del Method 04/07/23 20:30 Nasal Cannula 04/07/23 19:19 36.6 C 96 H 24 98/61 L 91 Room Air 04/07/23 17:37 83 04/07/23 16:35 36.5 C 86 18 95/62 L 92 Nasal Cannula 04/07/23 14:07 Nasal Cannula 04/07/23 12:27 91 H 04/07/23 11:28 36.5 C 81 16 92/60 L 92 Nasal Cannula O2 Flow Rate 04/07/23 20:30 04/07/23 19:19 04/07/23 17:37 04/07/23 16:35 3.5 04/07/23 14:07 4 04/07/23 12:27 04/07/23 11:28 3.5
[2023-04-07] MEDS ORDERED: ALBUMIN 25% 25 GM/100 ML VIAL IV ONE (23:41)
[2023-04-08 00:40] LABS: BUN Creatinine Ratio 20.4 (10-20); Calcium 8.9 mg/dl (8.6-10.3); Creatinine Clr Calc Pharmacy 29.1 ml/min; Est GFR (African American) 41.8 ml/min; Potassium 4.6 mmol/L (3.5-5.1)
[2023-04-08 01:02] LABS: Hemoglobin 8.7 g/dl (14.0-18.0); Mean Corpuscular Hgb Conc 32.2 g/dL (32.0-36.0); Mean Corpuscular Volume 86.8 fL (80.0-100.0); Nucleated RBC # (auto) 0.03 K/uL (0-0.12); Nucleated RBC % (auto) 0.2 %; Platelet Count 174 K/uL (130-400); RDW Coefficient of Variation 19.3 % (11.5-14.5); RDW Standard Deviation 60.2 fL (36.4-46.3); Red Blood Count 3.11 M/uL (4.70-6.10); White Blood Count 17.72 K/ul (4.8-10.8)
[2023-04-08] MEDS: AMIODARONE 200 MG TAB PO SCH (01:11)
[2023-04-08 01:22] LABS: Basophils # (auto) 0.02 K/uL (0-0.2); Basophils % (auto) 0.1 %; Dohle Bodies 1+; Eosinophils % (auto) 1.1 %; Immature Granulocytes # (auto) 0.08 K/uL (0.01-0.20); Immature Granulocytes % (auto) 0.5 %; Lymphocytes # (auto) 2.83 K/uL (1.2-3.4); Monocytes % (auto) 32.7 %; Neutrophils # (auto) 8.79 K/uL (1.40-6.50); Neutrophils % (auto) 49.6 %
[2023-04-08] MEDS ORDERED: ALBUMIN 25% 25 GM/100 ML VIAL IV ONE (01:27)
[2023-04-08] MEDS ORDERED: LACTATED RINGER'S 1,000 ML IV ONE (03:00)
[2023-04-08] MEDS ORDERED: HYDROCODONE/ACETAMINOPHEN 7.5/325MG TAB PO STA (03:52)
[2023-04-08] MEDS: ALTEPLASE, RECOMBINANT 10 MG in SYRINGE 50 ML IPL SCH (04:46)
[2023-04-08] MEDS: DORNASE ALFA 5 ML in SYRINGE 25 ML IPL SCH (04:46)
--- NOTE | 2023-04-08 05:12 | Communication Note ---
Date of Service: April 08, 2023 Overnight developments 04/07, 11:40 PM Made aware by RN of sinus tachycardia, heart rate 120s, BP 90s as per RN Patient initially talking in his sleep but later noted to be tachypneic and short of breath. Hemoglobin 8.7 from 10.9 serum crea 1.81 from 1.19 Lactic acid 3 CXR as per my interpretation atelectasis, elevated right hemidiaphragm, chest tube left side without effusion Bloody CT drainage greater than 1200 cc since 6 PM last night as per RN AP Hypotension secondary to hypovolemia Bloody CT drainage ARF secondary to above Baseline UA monitor creatinine, lactic acid response to IVF Hold NSAIDs for now Decrease maintenance beta-alma dose to avoid ATN Follow H&H, transfuse PRBC if hemoglobin less than 8 and or for symptomatic anemia RN requested to notify Pulmonology regarding bloody CT drainage 04/08 620AM Lactic acid noted to be 6 as per RN. Hemoglobin 6.6 Serum creatinine 2.2 Patient complaining of new left-sided abdominal pain and nausea as per RN. AP Worsening anemia, lactic acidosis, kidney dysfunction Left upper quadrant pain Transfuse PRBC to maintain hemoglobin at least 8 CT abdomen pelvis N.p.o. until CT abdomen pelvis results known
[2023-04-08 06:13] LABS: BUN Creatinine Ratio 19.8 (10-20); Calcium 9.1 mg/dl (8.6-10.3); Creatinine Clr Calc Pharmacy 24.8 ml/min; Est GFR (African American) 34.5 ml/min; Est GFR (Non-African American) 29.8 ml/min; Potassium 5.2 mmol/L (3.5-5.1)
[2023-04-08 06:17] LABS: Hematocrit (blood only) 20.5 % (42.0-52.0); Hemoglobin 6.6 g/dl (14.0-18.0); Mean Corpuscular Hgb Conc 32.2 g/dL (32.0-36.0); Mean Corpuscular Volume 86.9 fL (80.0-100.0); Nucleated RBC # (auto) 0.02 K/uL (0-0.12); Nucleated RBC % (auto) 0.2 %; Platelet Count 141 K/uL (130-400); RDW Coefficient of Variation 19.2 % (11.5-14.5); RDW Standard Deviation 60.2 fL (36.4-46.3); Red Blood Count 2.36 M/uL (4.70-6.10); White Blood Count 9.75 K/ul (4.8-10.8)
[2023-04-08] MEDS ORDERED: SODIUM CHLORIDE 0.9% 250 ML IV PRN (06:18)
[2023-04-08] MEDS ORDERED: SODIUM CHLORIDE 0.9% 1000ML 1,000 ML IV ONE (06:21)
[2023-04-08 06:23] LABS: Immature Granulocytes # (auto) 0.03 K/uL (0.01-0.20); Immature Granulocytes % (auto) 0.3 %; Lymphocytes % (auto) 14.4 %; Monocytes # (auto) 1.99 K/uL (0.11-0.59); Monocytes % (auto) 20.4 %; Neutrophils # (auto) 6.33 K/uL (1.40-6.50); Neutrophils % (auto) 64.9 %; RBC Morphology Unremarkable
[2023-04-08] MEDS ORDERED: PROMETHAZINE HCL 6.25 MG in SODIUM CHLORIDE 0.9% 50 ML IV STA (06:24)
[2023-04-08] MEDS ORDERED: SODIUM BICARB 8.4% INJ 50 MEQ/50 ML SYR IV STA (06:25)
[2023-04-08] MEDS ORDERED: ACETAMINOPHEN 1,000 MG/100 ML VIAL IV ONE (06:45)
--- NOTE | 2023-04-08 07:32 | XRay Report ---
XR chest 1V portable HISTORY: 73 years-old Male tachypnea acute shortness of breath COMPARISON: 04/07/2023 TECHNIQUE: AP view of the chest FINDINGS: Cardiomediastinal and hilar silhouettes are unchanged. Left subclavian pacer. Right IJ Rxdimo-t-Linn catheter is unchanged. Atherosclerosis of the aorta. Left basilar pleural drainage catheter. Residual trace left pleural effusion with mild left basilar opacities. No pneumothorax or overt pulmonary homa ma. Emphysema with chronic interstitial coarsening. Degenerative changes of the shoulders and spine. IMPRESSION: 1. Left basilar pleural drainage catheter in place. Trace residual left pleural effusion with left ba silar atelectasis. 2. No pneumothorax identified. 3. Emphysema with chronic interstitial coarsening. ACT 112: Negative or not required by law. The above report was generated using voice recognition software. It may contain grammatical, syntax o r spelling errors. Electronically signed by: Michael Boateng M.D. 04/08/2023 7:30 AM
[2023-04-08] MEDS: MEGESTROL ACETATE 40 MG TAB PO SCH (08:02)
[2023-04-08] MEDS: allopurinoL 300 MG TAB PO SCH (08:02)
[2023-04-08] MEDS: PANTOprazole 40 MG TAB PO SCH (08:02)
[2023-04-08] MEDS: CEROVITE ADV FORMULA TAB PO SCH (08:02)
[2023-04-08] MEDS: ATORVASTATIN 40 MG TAB PO SCH (08:03)
--- NOTE | 2023-04-08 08:11 | Pulmonology Progress Note ---
Date of Service April 08, 2023 Assessment & Plan (1) Pleural effusion: (2) Pleuritic chest pain: Plan Impression: 73-year-old male with history of lymphoma on chemotherapy and chroni c low platelets admitted with shortness of breath cough and elevated white blood cell count with left-sided partially loculated effusion. He is status post 14 Gabonese pigtail catheter placement on the left 04/06/2023 exudative effusion characteristics. Overnight he had a decrease in his hemoglobin and hematocrit with bloody output from the chest tube. Additional intrapleural thrombolytic/fibrinolytics were held. His x-ray this morning looks okay but he has developed acute renal failure significant anemia and lactic acidosis. Recommendations: 1. Pleural effusion: Hold on additional intrapleural lytics. On his x-ray today there does not appear to be significant reaccumulation of the pleural fluid or he retained hemothorax which is somewhat encouraging. We will keep the tube in place for now and monitor output. 2. Agree with antibiotics de-escalate if cultures remain negative. 3. Trend hemoglobin and hematocrit after transfusion and follow-up lactate. 4. Trend electrolytes very closely given his elevated potassium and acute renal failure. follow up labs later this AM. Given the patient's increasing lactate, progressive renal failure, and anemia, I think he would be best served by moving him to the intensive care unit for closer monitoring. Case was discussed with the electronic equipment installer Patient is critically ill at this point time with significant possibility of clinical deterioration and loss of organ function. A total of 45 minutes in critical care time was spent in evaluation managing stabilization and coordinating care for this patient Admission and Anticipated Discharge Date Admission Date: April 05, 2023 Subjective Patient seen and examined. MRI reviewed. As contacted by the nurse around 4 AM. She reported bloody output from the chest tube and a drop in the patient's hemoglobin. Additional intrapleural thrombolytics were discontinued at that point time. The patient has been ordered a transfusion. He has not yet received it. His x- ray this morning looks good. He is not having any chest pain. Review of Systems Review of Systems: All systems reviewed & are unremarkable except as noted in Subjective Physical Exam Constitutional: + ill appearing, + thin and + cachectic; not in distress Neck: trachea midline, no thyromegaly Respiratory: + dullness to percussion; no respiratory distress, no labored breathing, no cough and not tachypneic Auscultation: + diminished lung sounds Cardiovascular: RRR, no murmur, no edema Gastrointestinal (Abdomen): normal bowel sounds, soft, nontender, no hepatosplenomegaly Skin: no rashes, warm and dry Lymphatic: no cervical lymphadenopathy Results & Data Results & Data Vital Signs (Past 12 Hours) Vital Signs Temp Pulse Pulse Resp BP BP Pulse Ox 04/08/23 07:56 36.5 C 83 16 98/47 L 95 04/08/23 03:37 36.3 C L 97 H 27 H 102/65 93 04/08/23 02:24 106 H 102/69 92 04/07/23 23:23 120 H 04/08/23 01:43 111 H 110/79 91 04/08/23 01:24 36.5 C 117 H 34 H 91/66 L 92 04/08/23 01:08 91 04/08/23 00:41 128 H 32 H 91/60 L 04/07/23 22:50 36.5 C 117 H 24 99/58 L 91 04/07/23 20:30 O2 Del Method O2 Flow Rate 04/08/23 07:56 Room Air 04/08/23 03:37 Nasal Cannula 4 04/08/23 02:24 Nasal Cannula 4 04/07/23 23:23 04/08/23 01:43 Nasal Cannula 04/08/23 01:24 Nasal Cannula 4 04/08/23 01:08 Nasal Cannula 4 04/08/23 00:41 Nasal Cannula 4 04/07/23 22:50 Nasal Cannula 4 04/07/23 20:30 Nasal Cannula Laboratory Results 04/08/23 05:29 04/08/23 05:29 Diagnostic Findings Chest x-ray from this morning was independently reviewed. The lungs are well aerated. The chest tube appears to be in reasonably good position. No obvious pneumothorax. PG Care Time/CCT Total # of Minutes Spent Total Time Spent with Patient: Total time spent is greater than 50% in coordination of care (as documented) at patient's floor/unit and/or counseling patient: Coding Level of Care Code 26863 CRITICAL CARE 1ST 30-74M Diagnoses Pleural effusion J90 Pleuritic chest pain R07.81
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
[2023-04-08] MEDS: DOXYCYCLINE HYCLATE 100 MG in DEXTROSE 5% 100 ML IV SCH ×2 (08:27→21:20)
[2023-04-08] MEDS: CYCLOBENZAPRINE HCL 10 MG TAB PO SCH ×2 (08:28→21:20)
[2023-04-08] MEDS: METOPROLOL TARTRATE 25 MG TAB PO SCH ×2 (08:29→21:20)
--- NOTE | 2023-04-08 08:32 | XRay Report ---
XR chest 1V portable HISTORY: Chest tube ? MIST 2 protocol COMPARISON: Chest 04/08/2023. FINDINGS: A left basilar chest tube remains unchanged in position. A trace left pleural effusion and left basilar densities persist. No pneumothorax identified. Emphysema again noted. Mild chronic inter stitial thickening persists. A right jugular Port-A-Cath runs at the SVC. This left-sided pacemaker. The heart is normal in size. Mild congestive changes suggested. There are calcifications within the a ortic knob. IMPRESSION: 1. Left basilar chest tube remains unchanged in position. No pneumothorax identified. 2. Slight progression of interstitial thickening which may represent developing congestive change. ACT 112: Negative or not required by law. Electronically signed by: Kyle Barker M.D. 04/08/2023 8:30 AM
[2023-04-08] MEDS ORDERED: METOPROLOL TARTRATE 25 MG TAB PO SCH (09:00)
--- NOTE | 2023-04-08 09:18 | CT Scan Report ---
ABDOMEN AND PELVIS CT WITHOUT CONTRAST CT DOSE: 469.89 mGy.cm HISTORY: Left-sided abdominal pain. Anemia. TECHNIQUE: Multiaxial CT images of the abdomen and pelvis were performed without contrast. A dose lo wering technique was utilized adhering to the principles of ALARA. COMPARISON STUDY: Abdomen and pelvis CT 04/05/2023. FINDINGS: Emphysema again noted at the lung bases. A left basilar pleural catheter appears in good po sition. There is a trace left basilar hydropneumothorax remaining. Small amount of subcutaneous emphy sema seen within the left posterior chest wall at the chest tube insertion. Left basilar linear densi ties favor subsegmental atelectasis. Pacemaker wires are noted. No pneumoperitoneum. No pneumatosis. There are subacute/healing bilateral pubic ring fractures and a subacute/healing left pelvic fracture again noted. Nondisplaced subacute right intertrochanteric fracture demonstrates internal fixation a gain noted. Postoperative changes also seen within the left hip. Stable 8 mm lucency within the right iliac wing. There are healing/healed right posterior rib fractures. Pacemaker wires are noted. Trace pericardial effusion. The gallbladder is distended. No gallbladder wall thickening. A few small hypo dense hepatic lesions again noted. The unenhanced spleen, adrenal glands, and pancreas are unremarkab le. No renal stones or hydronephrosis. There are 2 hypodensities within the right kidney with the lar gest measuring 1 cm. These favor cysts. Calcified plaque within the abdominal aorta which demonstrate s a 3 cm infrarenal abdominal aortic aneurysm. No retroperitoneal or pelvic lymphadenopathy. No pelvi c free fluid. There is contrast within the bladder from the prior CT examination. No bladder wall thi ckening. Mildly dilated gas-filled loops of large or small bowel seen throughout the abdomen. This fa vors an ileus. Colonic diverticulosis. No evidence for acute diverticulitis. No definite bowel wall t hickening or obstruction. Large amount well-formed stool within the cecum and ascending colon. IMPRESSION: 1. A left basilar pleural catheter appears in good position. There is a trace left basilar hydropneum othorax remaining. 2. Subacute/healing pelvic and right femoral fractures again noted. 3. A 3 cm infrarenal abdominal aortic aneurysm again noted. 4. Mildly dilated gas-filled loops of large or small bowel seen throughout the abdomen. This favors a n ileus. No evidence for a bowel obstruction. 5. Large amount well-formed stool within the proximal colon. 6. Additional findings as described above. ACT 112: Negative or not required by law. Electronically signed by: Kyle Barker M.D. 04/08/2023 9:16 AM
[2023-04-08 09:28] LABS: Hematocrit (blood only) 19.3 % (42.0-52.0); Hemoglobin 6.1 g/dl (14.0-18.0)
[2023-04-08 09:38] LABS: Albumin Level 3.8 gm/dl (3.4-5.0); Bilirubin Direct 0.2 mg/dl (0-0.2); Bilirubin,Total 0.6 mg/dl (0.2-1.0)
[2023-04-08 09:56] LABS: Reticulocyte % 1.3 % (0.5-2.0); Reticulocytes # 0.03 10^6/uL (0.02-0.10)
[2023-04-08] MEDS: THIAMINE HCL 200 MG in SODIUM CHLORIDE 0.9% 50 ML IV SCH (09:56)
[2023-04-08] MEDS: CEFEPIME 1,000 MG in SYRINGE 0 ML IV SCH ×2 (10:12→21:34)
[2023-04-08 12:06] LABS: Base Excess VBG -1.6 mEq/L; HCO3 VBG 22 mmol/L; Oxygen Saturation VBG < 60.0 %; PCO2 VBG 31 mmHg (38-50); PO2 VBG 24 mmHg; pH VBG 7.45 (7.36-7.41)
[2023-04-08 12:31] LABS: Calcium 8.9 mg/dl (8.6-10.3); Creatinine Clr Calc Pharmacy 23.4 ml/min; Est GFR (African American) 32.1 ml/min; Est GFR (Non-African American) 27.7 ml/min; Potassium 5.2 mmol/L (3.5-5.1)
--- NOTE | 2023-04-08 17:01 | Hospitalist Progress Note ---
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 Admitted to the ICU currently due to significant bloody output from catheter, with symptomatic/significant anemia requiring transfusion, acute kidney injury and elevated lactate. LLL pneumonia Loculated pleural effusion Chest CTA - loculated left pleural effusion-significant bloody output from catheter, with anemia requiring transfusion. Hx of this on the right Continue Cefepime, doxycycline Appreciate ICU/pulmonary recs/services Diffuse B Cell Lymphoma of head/neck:s/p 1 cycle of RCEOP (11/18/22 - 11/21/22) Chronic myelomonocytic leukemia: Chronic Thrombocytopenia: Transfusion reaction/to platelets transfusion: Following with Dr. Rojas - chemo on hold for now and patient just began receiving radiation to neck yesterday (due again with Dr. Bermeo) Soft tissue neck CT with necrotic lymph nodes are further decreased in size from prior exam Continue allopurinol for tumor lysis syndrome prophylaxis Paroxysmal A fib Following with cardiology. Continue amiodarone 200mg daily Chronic thrombocytopenia, h/o ITP stable Severe protein calorie malnutrition: Significant weight loss previously but appetite improving on Megace per . PAD: c/w statin. ABIs done on 03/17 showed R 0.87 and L 0.85 at rest concerning for occlusive disease to b/l SFA and tibial artery along with L iliac disease Arterial Doppler:Moderate atherosclerotic plaque within the bilateral lower extremities. Suspected occlusion of the distal left posterior tibial artery, otherwise patent vessels. Monophasic flow within the bilateral calf vessels Unstageable pressure ulcers, bilateral: following with wound care. Per notes, unable to debride eschar due to significant PAD. marshmallow maker consulted-appreciate input and recommendation H/o Dysphagia Continue minced and moist, easy to chew diet with thin liquids SSS S/P PPM in 2019 COPD: c/w home inhalers. no signs of exacerbation Disposition PCP: Dr. Bradshaw Code Status: DNR/DNI VTE Prophylaxis: SCDs, avoid chemical vte ppx given thrombocytopenia Dispo: admitted to PCU Admission and Anticipated Discharge Date Admission Date: April 05, 2023 Subjective Pt seen in the ICU this AM. Stated he felt cold. Said he felt like he was "dying" last night. Had episodes of SOB and abdominal pain overnight. Noted to be anemic as well with bloody drainage from his PleurX catheter. Review of Systems Review of Systems: All systems reviewed & are unremarkable except as noted in Subjective Physical Exam Physical Exam: General: Alert, oriented. No acute distress, frail gentleman Psych: Appropriate mood and affect Neuro: difficulty moving HEENT: NC/AT CV: RRR Resp: hesitates with taking deep breaths Abdomen: Soft, nontender, nondistended. Extremities: No edema in lower extremities bilaterally. Results & Data Results & Data Vital Signs (Past 12 Hours) Vital Signs Temp Pulse Pulse Resp BP BP Pulse Ox 04/08/23 14:30 37.1 C 76 22 100/56 L 97 04/08/23 13:30 76 16 106/58 L 100 04/08/23 13:00 37.1 C 76 18 99/52 L 95 04/08/23 12:45 37.1 C 76 22 94/51 L 95 04/08/23 12:30 37.1 C 77 21 98/50 L 95 04/08/23 12:18 77 24 107/60 100 04/08/23 12:07 37.2 C 77 18 103/81 96 04/08/23 11:24 37.2 C 79 18 99/55 L 96 04/08/23 09:00 04/08/23 10:54 37.1 C 79 18 92/50 L 94 04/08/23 10:39 37.2 C 79 20 91/56 L 95 04/08/23 10:22 37.3 C 82 22 92/48 L 94 04/08/23 07:56 36.5 C 83 16 98/47 L 95 O2 Del Method O2 Flow Rate 04/08/23 14:30 4 04/08/23 13:30 4 04/08/23 13:00 4 04/08/23 12:45 4 04/08/23 12:30 4 04/08/23 12:18 4 04/08/23 12:07 4 04/08/23 11:24 4 04/08/23 09:00 Nasal Cannula 4 04/08/23 10:54 4 04/08/23 10:39 4 04/08/23 10:22 4 04/08/23 07:56 Room Air
[2023-04-08 18:54] LABS: Appearance Urine Cloudy (Clear); Bacteria Urine Automated Negative (Negative); Bilirubin Urine Negative (Negative); Blood Urine Negative (Negative); Color Urine Dark Yellow; Epithelial Cell Urine Auto >30 /lpf (0-5); Glucose Urine UA Negative (Negative); Ketones Urine 1+ (Negative); Leukocyte Esterase Urine Negative (Negative); Nitrite Urine Negative (Negative); Protein Urine 1+ (Negative); RBC Urine Automated 0-4 /hpf (0-4); Specific Gravity Urine 1.033 (1.000-1.030); Urobilinogen Urine Negative (Negative); pH Urine 5.5 (4.5-7.5)
[2023-04-08 18:55] LABS: Hematocrit (blood only) 22.9 % (42.0-52.0); Hemoglobin 7.5 g/dl (14.0-18.0)
[2023-04-08] MEDS: HYDROCODONE/ACETAMINOPHEN 7.5/325MG TAB PO PRN (19:32)
[2023-04-08] MEDS: HYDROmorphone INJ 0.5 MG/0.5 ML SYR IV PRN (21:42)
[2023-04-09 00:59] LABS: Hematocrit (blood only) 20.7 % (42.0-52.0); Hemoglobin 6.9 g/dl (14.0-18.0)
[2023-04-09] MEDS ORDERED: SODIUM CHLORIDE 0.9% 250 ML IV PRN (01:01)
[2023-04-09] MEDS: HYDROCODONE/ACETAMINOPHEN 7.5/325MG TAB PO PRN ×2 (03:13→08:35)
[2023-04-09 06:47] LABS: BUN Creatinine Ratio 23.8 (10-20); Calcium 8.4 mg/dl (8.6-10.3); Creatinine Clr Calc Pharmacy 27.3 ml/min; Est GFR (African American) 38.6 ml/min; Est GFR (Non-African American) 33.3 ml/min; Phosphorus 4.5 mg/dl (2.5-4.9); Potassium 3.8 mmol/L (3.5-5.1)
[2023-04-09 06:52] LABS: INR 1.2 (0.9-1.1); Prothrombin Time 12.9 Seconds (9.0-12.0)
[2023-04-09 07:04] LABS: Folate (Folic Acid),Ser orPlas 21.44 ng/ml (>5.38)
[2023-04-09 07:08] LABS: Ferritin 688.7 ng/ml (8-388)
--- NOTE | 2023-04-09 07:13 | Critical Care Progress Note ---
Date of Service April 09, 2023 Assessment & Plan (1) Pleural effusion: Plan: 73 y/o male with a complex PMHx of diffuse, large B-cell lymphoma and CMML (dx fall 22) following with Dr. 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 Clinical picture has improved with lactate clearance and improvement of YANDEL. Reason Critically Ill: High likelihood of clinical deterioration and loss of organ function NEURO: ICU CAM - negative Alert and oriented No acute concerns Patient is at moderate risk of clinical deterioration is poor at present as patient is medically complex. May consider hospice vs palliative consult vs outpatient discussion of goals of care CV: #Hx of tachy/boris syndrome - s/p pacemaker placement in 2018 #Abdominal aorta ectasia #Previous NSTEMI - Sep 2020 #CAD continue BB and statin, not on ASA d/t thrombocytopenia #Paroxysmal a. fib rate controlled with amiodarone 200 mg QD, beta alma - not on ASA/anticoagulation d/t thrombocytopenia #PAD continue statin, not on ASA d/t thrombocytopenia #Hypotension Likely hypovolemic in nature. Patient also with significant anemia. Unclear on the source of bleeding. CT did not show any signs of internal hemorrhage. Given 3U PRBCs total 04/08/23. Appropriate response in hemoglobin. Continue to monitor Q6H. Patient with 3.6L drainage from CT in 36 hours prior to transfusions. Output has since decreased and has become more serous in nature with no tierra blood. RESP: #Acute Respiratory Failure with Hypoxia #LLL PNA with loculated effusion CTA chest CT A&P with read as negative for PE, notable for PNA and left sided loculated pleural effusion d/t PNA and pleural effusion improved with CT placement and abx - cefepime and doxy (end date 04/11) supplemental oxygen as needed Chest Tube with minimal output in the last 16 hours. Will d/c CT. Ordered post- procedure CXR for 14:30 FENGI: #Cirrhosis #Hep C - treated Chronic condition. MELD-Na 20 at present. Did receive albumin during hospital course. IVF NS 100 mL/hr ENDO: ICU protocol for hyperglycemia RENAL/LYTES #YANDEL Patient with worsening renal function. Could be indicative of end organ damage. Improving. Continue to monitor. #Elevated Gap Lactic Acidosis HGMA with lactic acidosis improving. Gap has closed. Lactate has cleared. Continue to monitor ID: #Leukocytosis #LLL PNA - on cefepime Q12H and doxy (end date 04/11), leukocytosis of 17 on admit since normalized HEME/ONC: #Diffuse, large B-cell lymphoma #CMML Diagnosed in the fall of 2021, unable to continue with chemotherapy as it significantly reduced his performance/unable to tolerate, recently started radiation therapy. Follows with Dr. Rojas. #Anemia #Thrombocytopenia - likely multifactorial d/t malignancy, cirrhosis, chronic disease, recent radiation therapy. Concern for bone marrow dysfunction for low reticulocyte count. Consider hematology consult for a possible bone marrow biopsy Transfusion Threshold: Plts <15 if not bleeding or <50 if bleeding Hgb <7 MSK: #Recent falls - did have an ORIF of the right hip in September 2022 #Subacute fx right anterior pubic ring and left anterior acetabulum consider ortho consult likely nothing to do other than conservative management SKIN: #Unstageable b/l heel pressure ulcers: follows with wound care, unable to debride d/t PAD, wound care consulted Code status: DNR/DNI Lines: PIV DVT ppx: SCDs GI ppx: pantoprazole FENGI: IVF NS 100 mL/hr Dispo: escalated care to ICU status 04/08 (2) Pneumonia: (3) PAD (peripheral artery disease): (4) Pressure ulcer, heel, right, unstageable: (5) Pressure ulcer of left heel, unstageable: (6) COPD (chronic obstructive pulmonary disease): (7) CMML (chronic myelomonocytic leukemia): (8) B-cell lymphoma of lymph nodes of head: (9) Pancytopenia: (10) Elevated lactic acid level: (11) Paroxysmal atrial fibrillation with RVR: (12) COPD with emphysema: (13) Thrombocytopenia: (14) Cirrhosis of liver: (15) Palliative care by specialist: Admission and Anticipated Discharge Date Admission Date: April 05, 2023 Supervising Physician Co-Signing Physician Notes Dr. Colunga was resident physician during care of patient. I separately evaluated patient for larios portions of the history and the exam. I was present during the critical portion of medical decision making, and I discussed the case with the resident. I generally agree with the findings and plan. I had extensive discussion with the patient and his . He expresses a desire to live life and engage in several trips. He would prefer not to be in the hospital and missed his opportunity at being able to participate in those activities. We discussed possible progression of disease and that he should have a discussion with his oncologist and treatment team regarding his life goals as well as current status and prognosis of his underlying malignancies. He is agreeable to see palliative care. He is also desiring increased pain medication as an outpatient because his biggest complaint at this time is the amount of generalized pain he is having and is not being covered with his c urrent prescription regimen. Patient's organ dysfunction appears to have stabilized and improved, it appears this was secondary to acute anemia. Acute kidney injury/failure appears to be improving and his potassium has improved. lactate has cleared. Peripheral smear results reviewed. There does not appear to be ongoing blood loss, he has not had a change in his bowel habits. Output from chest tube appears to be serous, no tierra blood. Patient's anemia is normochromic and his iron studies as well as megaloblastic labs are within normal range. I am concerned about marrow involvement given his low reticulocyte count. We will consult hematology for further evaluation, the patient has several ongoing issues and need to stratify risk benefits of additional work-up and treatment. Continue to trend labs. Discussed with pulmonary, patient has only had 250 mL out for a 8-hour overnight shift and only had 10 mL since 5 AM, an additional 8 hours. I will discontinue his chest tube after discussion with pulmonary. Care was taken to disconnect the Pleur-evac, the retention suture was disconnected and the chest tube was removed swiftly. A occlusive dressing was applied a post removal chest x-ray has been ordered. Subjective Patient seen at bedside. Breathing better. Review of Systems Review of Systems: See HPI Physical Exam Physical Exam: General: ill appearing frail gentleman in NAD with NC in place, sitting up in bed with a meal in front of him Psych: appropriate mood and affect Neuro: awake and alert, much more interactive HEENT: NC/AT CV: clinically well perfused, no edema Resp: breathing much more comfortably today Abdomen: non-distended MSK: no gross deformities Skin: warm/dry Results & Data Results & Data Vital Signs (Past 12 Hours) Last set of vitals: BP 116/76 HR 88 RR 21 Temp 36.8C O2 Sat 91% on 2L NC Laboratory Results 04/09/23 05:51 04/09/23 05:51 Critical Care Results & Data Lab & Micro Results (Past 24 Hours) RBC 2.99 M/uL (4.70-6.10) L 04/09/23 WBC 9.78 K/ul (4.8-10.8) 04/09/23 Hgb 8.4 g/dl (14.0-18.0) L 04/09/23 Hct 24.7 % (42.0-52.0) L 04/09/23 MCV 82.6 fL (80.0-100.0) 04/09/23 MCH 28.1 pg (25.0-34.0) 04/09/23 MCHC 34.0 g/dL (32.0-36.0) 04/09/23 RDW Standard Deviation 54.9 fL (36.4-46.3) H 04/09/23 RDW Coefficient of Variation 18.2 % (11.5-14.5) H 04/09/23 Plt Count 106 K/uL (130-400) L 04/09/23 ANC 5.87 K/uL (1.4-6.5) 04/09/23 ALC 2.35 K/uL (1.2-3.4) 04/09/23 Neutrophils % (Manual) 60 % 04/09/23 Lymphocytes % (Manual) 24 % 04/09/23 Monocytes % (Manual) 10 % 04/09/23 Eosinophils % (Manual) 4 % 04/09/23 Basophils % (Manual) 2 % 04/09/23 Neutrophils # (Manual) 5.87 K/uL (1.40-6.50) 04/09/23 Lymphocytes # (Manual) 2.35 K/uL (1.2-3.4) 04/09/23 Monocytes # (Manual) 0.98 K/uL (0.11-0.59) H 04/09/23 Eosinophils # (Manual) 0.39 K/uL (0-0.50) 04/09/23 Basophils # (Manual) 0.20 K/uL (0-0.2) 04/09/23 Hypogranular Neutrophils 1+ 04/09/23 Dohle Bodies 1+ 04/09/23 Na 134 mmol/L (136-145) L 04/09/23 K 3.8 mmol/L (3.5-5.1) 04/09/23 Cl 106 mmol/L (98-107) 04/09/23 CO2 21 mmol/L (21-32) 04/09/23 Anion Gap 7 (3-11) 04/09/23 BUN 46 mg/dl (6-23) H 04/09/23 Creatinine 1.93 mg/dl (0.6-1.4) H 04/09/23 Estimated GFR ( Amer) 38.6 ml/min 04/09/23 Estimated GFR (Non-Af Amer) 33.3 ml/min 04/09/23 BUN/Creatinine Ratio 23.8 (10-20) H 04/09/23 Glu 94 mg/dl (70-99(Fasting)) 04/09/23 Ca 8.4 mg/dl (8.6-10.3) L 04/09/23 Phosphorus Level 4.5 mg/dl (2.5-4.9) 04/09/23 Lactate Dehydrogenase 175 U/L (86-244) 04/09/23 Mg 2.0 mg/dl (1.7-2.4) 04/09/23 05:51 Calcium Level 8.4 mg/dl (8.6-10.3) L 04/09/23 05:51 Prothromb Time International Ratio 1.2 (0.9-1.1) H 04/09/23 05 :51 Microbiology 04/06/23 Unknown Gram Stain - Final Pleural Fluid Aerobic and Anaerobic Culture - Preliminary No growth to date. Diagnostic Findings (Past 24 Hours) Chest X-Ray 04/08/23 01:27 XR chest 1V portable HISTORY: 73 years-old Male tachypnea acute shortness of breath COMPARISON: 04/07/2023 TECHNIQUE: AP view of the chest FINDINGS: Cardiomediastinal and hilar silhouettes are unchanged. Left subclavian pacer. Right IJ [id number] catheter is unchanged. Atherosclerosis of the aorta. Left basilar pleural drainage catheter. Residual trace left pleural effusion with mild left basilar opacities. No pneumothorax or overt pulmonary edema. Emphysema with chronic interstitial coarsening. Degenerative changes of the shoulders and spine. IMPRESSION: 1. Left basilar pleural drainage catheter in place. Trace residual left pleural effusion with left basilar atelectasis. 2. No pneumothorax identified. 3. Emphysema with chronic interstitial coarsening. ACT 112: Negative or not required by law. The above report was generated using voice recognition software. It may contain grammatical, syntax or spelling errors. Electronically signed by: Michael Boateng M.D. 04/08/2023 7:30 AM Abdomen/Pelvis CT 04/08/23 06:[address] WITHOUT CONTRAST CT DOSE: 469.89 mGy.cm HISTORY: Left-sided abdominal pain. Anemia. TECHNIQUE: Multiaxial CT images of the abdomen and pelvis were performed without contrast. A dose lowering technique was utilized adhering to the principles of ALARA. COMPARISON STUDY: Abdomen and pelvis CT 04/05/2023. FINDINGS: Emphysema again noted at the lung bases. A left basilar pleural catheter appears in good position. There is a trace left basilar hydropneumothorax remaining. Small amount of subcutaneous emphysema seen within the left posterior chest wall at the chest tube insertion. Left basilar linear densities favor subsegmental atelectasis. Pacemaker wires are noted. No pneumoperitoneum. No pneumatosis. There are subacute/healing bilateral pubic ring fractures and a subacute/healing left pelvic fracture again noted. Nondisplaced subacute right intertrochanteric fracture demonstrates internal fixation again noted. Postoperative changes also seen within the left hip. Stable 8 mm lucency within the right iliac wing. There are healing/healed right posterior rib fractures. Pacemaker wires are noted. Trace pericardial effusion. The gallbladder is distended. No gallbladder wall thickening. A few small hypodense hepatic lesions again noted. The unenhanced spleen, adrenal glands, and pancreas are unremarkable. No renal stones or hydronephrosis. There are 2 hypodensities within the right kidney with the largest measuring 1 cm. These favor cysts. Calcified plaque within the abdominal aorta which demonstrates a 3 cm infrarenal abdominal aortic aneurysm. No retroperitoneal or pelvic l ymphadenopathy. No pelvic free fluid. There is contrast within the bladder from the prior CT examination. No bladder wall thickening. Mildly dilated gas-filled loops of large or small bowel seen throughout the abdomen. This favors an ileus. Colonic diverticulosis. No evidence for acute diverticulitis. No definite bowel wall thickening or obstruction. Large amount well-formed stool within the cecum and ascending colon. IMPRESSION: 1. A left basilar pleural catheter appears in good position. There is a trace left basilar hydropneumothorax remaining. 2. Subacute/healing pelvic and right femoral fractures again noted. 3. A 3 cm infrarenal abdominal aortic aneurysm again noted. 4. Mildly dilated gas-filled loops of large or small bowel seen throughout the abdomen. This favors an ileus. No evidence for a bowel obstruction. 5. Large amount well-formed stool within the proximal colon. 6. Additional findings as described above. ACT 112: Negative or not required by law. Electronically signed by: Kyle Barker M.D. 04/08/2023 9:16 AM Chest X-Ray 04/08/23 08:00 XR chest 1V portable HISTORY: Chest tube ? MIST 2 protocol COMPARISON: Chest 04/08/2023. FINDINGS: A left basilar chest tube remains unchanged in position. A trace left pleural effusion and left basilar densities persist. No pneumothorax identified. Emphysema again noted. Mild chronic interstitial thickening persists. A right jugular Port-A-Cath runs at the SVC. This left-sided pacemaker. The heart is normal in size. Mild congestive changes suggested. There are calcifications within the aortic knob. IMPRESSION: 1. Left basilar chest tube remains unchanged in position. No pneumothorax identified. 2. Slight progression of interstitial thickening which may represent developing congestive change. ACT 112: Negative or not required by law. Electronically signed by: Kyle Barker M.D. 04/08/2023 8:30 AM This peripheral smear for review reveals moderate anisocytosis of the red blood cells, rare nucleated red blood cells, unremarkable lymphocytes, unremarkable PMN leukocytes, unremarkable monocytes, and unremarkable platelets. Blasts, schistocytes, spherocytes, and circulating lymphoma cells are all not seen. There is no evidence of intravascular hemolysis. The PMN leukocytes fail to reveal cytoplasmic vacuoles, toxic granulations or Dohle bodies. Thus, the cytologic findings of sepsis/bacteremia are not seen. Review of the patient's CBC reveals an unremarkable white blood cell count 9.75 x 10 to the ninth per liter, severe anemia with a hemoglobin concentration at 6.6 g/dL and an unremarkable platelet count at 141 x 10 to the ninth per liter. Review of the electronic medical record indicates this patient has a complicated past medical history which includes a diffuse large Bcell lymphoma and chronic myelom onocytic leukemia (CMML) which was diagnosed in 2021. The patient also has a history of thrombocytopenia. In light of the clinical diagnosis of CMML, please note that the PMN leukocytes reveal unremarkable nuclear septations and granularity is maintained. I am unable to diagnose dysplasia in the PMN leukocytes. The patient does have an absolute monocytosis with an absolute monocyte count at 1.99 x 10 to the ninth per liter, but the monocytes fail to reveal atypical cytologic features. As such, clinical correlation is required in terms of this patient's diagnosis of CMML. Further review indicates paroxysmal atrial fibrillation and hepatic cirrhosis due to hepatitis C. The patient is currently an inpatient and being treated for left lower lobe pneumonia. Please note the MCV is not microcytic. The cause of this patient's severe anemia is not readily apparent although it would be interesting to know if the patient has documented marrow involvement by lymphoma. As well, patients with CMML can occasionally have severe anemia. Clinical correlation is required in this regard. Peripheral smear for review: #1. Moderate anisocytosis and scattered echinocytes of the red blood cells are seen. #2. The leukocytes are cytologically unremarkable and circulating lymphoma cells are not seen. #3. Blasts and spherocytes are not seen. #4. The presence of severe anemia and the clinical history of a diffuse large Bcell lymphoma and CMML are noted. #5. Please see above discussion. I & O Totals 24 Hours 04/08/23 04/09/23 04/10/23 06:59 06:59 06:59 Intake Total 1043.667 / 3501.780 7340.584 / 3162.584 Output Total 2070 / 2070 850 / 850 Balance -1026.333 / -8502.420 8663.584 / 2312.584 Cumulative 04/05/23 12:18 thru 04/09/23 06:30 Intake Total 6316.251 Output Total 4520 Balance 1796.251 RT Ventilator Mngmt (Last Documented) Ventilator Ordered Settings Respiratory Rate 20 04/09/23 06:20 Ventilator - PT Measurements Respiratory Rate 20 Resident Activity Tracking Resident Involvement: Resident Care Provided Care Provided: Adult Hospital Medicine (2) Pneumonia Laterality: left Lung location: lower lobe of lung Pneumonia type: due to unspecified organism Qualified Code(s): J18.9 - Pneumonia, unspecified organism
[2023-04-09 07:15] LABS: Hematocrit (blood only) 24.7 % (42.0-52.0); Hemoglobin 8.4 g/dl (14.0-18.0); Mean Corpuscular Hemoglobin 28.1 pg (25.0-34.0); Mean Corpuscular Volume 82.6 fL (80.0-100.0); Platelet Count 106 K/uL (130-400); RDW Coefficient of Variation 18.2 % (11.5-14.5); RDW Standard Deviation 54.9 fL (36.4-46.3); Red Blood Count 2.99 M/uL (4.70-6.10); White Blood Count 9.78 K/ul (4.8-10.8)
[2023-04-09 07:16] LABS: ALC (manual) 2.35 K/uL (1.2-3.4); ANC (manual) 5.87 K/uL (1.4-6.5); Basophils % (manual) 2 %; Dohle Bodies 1+; Eosinophils # (manual) 0.39 K/uL (0-0.50); Eosinophils % (manual) 4 %; Hypogranular Neutrophils 1+; Lymphocytes # (manual) 2.35 K/uL (1.2-3.4); Lymphocytes % (manual) 24 %; Monocytes # (manual) 0.98 K/uL (0.11-0.59); Monocytes % (manual) 10 %; Neutrophils # (manual) 5.87 K/uL (1.40-6.50); Neutrophils % (manual) 60 %; Reticulocytes # 0.06 10^6/uL (0.02-0.10)
[2023-04-09] MEDS: THIAMINE HCL 200 MG in SODIUM CHLORIDE 0.9% 50 ML IV SCH (08:21)
[2023-04-09] MEDS: ATORVASTATIN 40 MG TAB PO SCH (08:28)
[2023-04-09] MEDS: METOPROLOL TARTRATE 25 MG TAB PO SCH ×2 (08:28→19:48)
[2023-04-09] MEDS: allopurinoL 300 MG TAB PO SCH (08:29)
[2023-04-09] MEDS: MEGESTROL ACETATE 40 MG TAB PO SCH (08:29)
[2023-04-09] MEDS: PANTOprazole 40 MG TAB PO SCH (08:29)
[2023-04-09] MEDS: CEROVITE ADV FORMULA TAB PO SCH (08:29)
[2023-04-09] MEDS: AMIODARONE 200 MG TAB PO SCH (08:29)
[2023-04-09] MEDS: CYCLOBENZAPRINE HCL 10 MG TAB PO SCH ×2 (08:30→19:48)
[2023-04-09] MEDS: DOXYCYCLINE HYCLATE 100 MG in DEXTROSE 5% 100 ML IV SCH (08:40)
[2023-04-09] MEDS: CEFEPIME 1,000 MG in SYRINGE 0 ML IV SCH ×2 (08:40→22:11)
--- NOTE | 2023-04-09 08:47 | XRay Report ---
XR chest 1V portable HISTORY: Evaluate left-sided chest tube. Chest tube ? MIST 2 protocol COMPARISON: Chest 04/08/2023. FINDINGS: Left basilar chest tube remains unchanged in position. No pneumothorax. No pleural effusion s. The cardiac silhouette is normal in size. Left basilar linear densities favor scarring or subsegme ntal atelectasis. Otherwise, lungs are clear. No evidence for pulmonary edema. There is a left-sided pacemaker and a right jugular Port-A-Cath which terminates in the SVC. Mild congestive change has imp roved. IMPRESSION: Left basilar chest tube remains unchanged in position. No pneumothorax. ACT 112: Negative or not required by law. Electronically signed by: Kyle Barker M.D. 04/09/2023 8:46 AM
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
[2023-04-09] MEDS ORDERED: oxyCODONE HCL IR 5 MG TAB (IMMEDIATE RELEASE) PO STA (12:15)
[2023-04-09] MEDS ORDERED: oxyCODONE HCL IR 5 MG TAB (IMMEDIATE RELEASE) PO PRN (12:15)
[2023-04-09] MEDS ORDERED: ACETAMINOPHEN 325 MG TAB PO PRN (12:15)
[2023-04-09] MEDS: HYDROmorphone INJ 0.5 MG/0.5 ML SYR IV PRN (12:19)
[2023-04-09] MEDS: HEPARIN 100 UNIT/ML 5ML FLUSH FLUSH PRN (12:20)
[2023-04-09 12:49] LABS: Hematocrit (blood only) 26.5 % (42.0-52.0)
--- NOTE | 2023-04-09 13:16 | Pulmonology Progress Note ---
Date of Service April 09, 2023 Assessment & Plan (1) Pleural effusion: (2) Pleuritic chest pain: Plan Impression: 73-year-old male with history of lymphoma on chemotherapy and chroni c low platelets admitted with shortness of breath cough and elevated white blood cell count with left-sided partially loculated effusion. He presented with similar complaints about 2 months ago. Both times he had a pigtail catheter placed and suffered significant bleeding complications associated with intrapleural fibrinolytics. This appears to have resolved. His chest x-ray looks good cytology was negative on the pleural fluid. Recommendations: 1. Pleural effusion: Resolved. Catheter discontinued by critical care services. Will follow clinically for reaccumulation of pleural fluid. If the pleural fluid reaccumulates, would have a low threshold for proceeding with goal pleuroscopy or video-assisted thoracoscopic evaluation given recurrent bleeding and clear etiology of these effusions. 2. Okay to de-escalate/discontinue antibiotics from a lung standpoint 3. Patient's other medical issues are deferred to the patient's primary service. He is being downgraded out of the intensive care unit. His pulmonary issues appear to have resolved. We will sign off. Feel free to contact us with questions or concerns Admission and Anticipated Discharge Date Admission Date: April 05, 2023 Subjective Patient seen and examined. Discussed with critical care services. The patient had his chest tube removed this morning. Output is decreased. His breathing is better. His metabolic disarray appears to be improving. He received packed cells yesterday. He denies any chest pain. His oxygen requirement significantly improved Review of Systems Review of Systems: All systems reviewed & are unremarkable except as noted in Subjective Physical Exam Constitutional: + ill appearing, + thin and + cachectic; not in distress Neck: trachea midline, no thyromegaly Respiratory: + dullness to percussion; no respiratory distress, no labored breathing, no cough and not tachypneic Auscultation: + diminished lung sounds Cardiovascular: RRR, no murmur, no edema Gastrointestinal (Abdomen): normal bowel sounds, soft, nontender, no hepatosplenomegaly Skin: no rashes, warm and dry Lymphatic: no cervical lymphadenopathy Results & Data Results & Data Vital Signs (Past 12 Hours) Vital Signs Temp Pulse Pulse Resp BP BP Pulse Ox 04/09/23 12:00 81 14 93 04/09/23 12:00 122/66 07/15/23 11:01 116/76 04/09/23 11:01 88 21 91 04/09/23 11:00 82 23 90 04/09/23 10:00 77 20 91 04/09/23 10:00 110/54 L 04/09/23 09:00 83 18 91 04/09/23 08:00 04/09/23 08:45 87 20 91 04/09/23 08:45 117/61 04/09/23 08:31 85 15 92 04/09/23 08:31 115/53 L 04/09/23 08:15 87 21 92 04/09/23 08:15 103/57 L 04/09/23 08:00 82 16 93 04/09/23 08:00 104/49 L 04/09/23 07:46 116/46 L 04/09/23 07:46 87 20 95 04/09/23 07:31 86 24 92 04/09/23 07:31 118/64 04/09/23 07:15 79 12 95 04/09/23 07:15 129/65 04/09/23 07:00 77 15 94 04/09/23 08:00 04/09/23 08:56 36.8 C 85 18 121/61 92 04/09/23 06:20 78 20 91 04/09/23 06:15 110/52 L 04/09/23 06:15 80 19 90 04/09/23 06:10 78 24 90 04/09/23 06:00 79 23 89 L 04/09/23 06:00 102/54 L 04/09/23 05:50 81 23 04/09/23 05:45 84 25 H 04/09/23 05:45 99/51 L 04/09/23 05:40 83 26 H 89 L 04/09/23 05:30 81 24 04/09/23 05:30 95/52 L 04/09/23 05:20 80 26 H 90 04/09/23 05:15 119/54 L 04/09/23 05:15 82 21 91 04/09/23 05:10 86 31 H 90 04/09/23 05:00 85 23 95 04/09/23 05:00 112/60 04/09/23 04:50 88 25 H 94 04/09/23 04:45 79 31 H 96 07/15/23 04:45 111/54 L 04/09/23 04:40 81 23 99 04/09/23 04:30 77 23 95 04/09/23 04:30 116/50 L 04/09/23 04:20 78 22 96 04/09/23 04:15 102/54 L 04/09/23 04:15 78 32 H 94 04/09/23 04:10 80 26 H 95 04/09/23 04:00 80 25 H 93 04/09/23 04:00 106/46 L 04/09/23 03:50 83 21 94 04/09/23 03:45 87 22 92 04/09/23 03:40 86 20 94 04/09/23 03:30 78 16 94 04/09/23 03:30 106/54 L 04/09/23 05:13 37.1 C 89 23 112/60 92 04/09/23 04:17 37 C 87 16 111/54 L 93 04/09/23 03:20 80 15 04/09/23 03:19 125/56 L 04/09/23 03:19 87 23 04/09/23 03:15 103/68 04/09/23 03:15 86 22 04/09/23 03:10 78 20 95 04/09/23 03:00 78 16 95 04/09/23 03:00 113/54 L 04/09/23 02:50 89 16 92 04/09/23 02:46 92 H 26 H 93 04/09/23 02:46 124/58 L 04/09/23 02:40 78 18 96 04/09/23 02:31 81 38 H 93 04/09/23 02:31 101/51 L 04/09/23 02:30 81 23 93 04/09/23 02:20 80 21 95 04/09/23 02:10 77 19 92 04/09/23 02:03 86 26 H 04/09/23 02:03 107/56 L 04/09/23 02:00 77 17 04/09/23 02:00 114/53 L 04/09/23 01:50 78 21 04/09/23 01:40 76 20 04/09/23 01:30 91 H 16 04/09/23 01:20 87 20 04/09/23 02:47 37.1 C 80 19 113/54 L 99 04/09/23 03:17 37.1 C 85 23 125/56 L 96 04/09/23 02:32 37.1 C 77 18 101/51 L 93 04/09/23 02:13 36.8 C 78 22 107/56 L 97 O2 Del Method O2 Flow Rate 04/09/23 12:00 04/09/23 12:00 04/09/23 11:01 04/09/23 11:01 Nasal Cannula 2 04/09/23 11:00 04/09/23 10:00 04/09/23 10:00 04/09/23 09:00 Nasal Cannula 2 04/09/23 08:00 Nasal Cannula 4 04/09/23 08:45 04/09/23 08:45 04/09/23 08:31 04/09/23 08:31 04/09/23 08:15 04/09/23 08:15 04/09/23 08:00 04/09/23 08:00 04/09/23 07:46 04/09/23 07:46 04/09/23 07:31 04/09/23 07:31 04/09/23 07:15 04/09/23 07:15 04/09/23 07:00 04/09/23 08:00 Nasal Cannula 2 04/09/23 08:56 Room Air 04/09/23 06:20 04/09/23 06:15 04/09/23 06:15 04/09/23 06:10 04/09/23 06:00 04/09/23 06:00 04/09/23 05:50 04/09/23 05:45 04/09/23 05:45 04/09/23 05:40 04/09/23 05:30 04/09/23 05:30 04/09/23 05:20 04/09/23 05:15 04/09/23 05:15 04/09/23 05:10 04/09/23 05:00 04/09/23 05:00 04/09/23 04:50 04/09/23 04:45 04/09/23 04:45 04/09/23 04:40 04/09/23 04:30 04/09/23 04:30 04/09/23 04:20 04/09/23 04:15 04/09/23 04:15 04/09/23 04:10 04/09/23 04:00 04/09/23 04:00 04/09/23 03:50 04/09/23 03:45 04/09/23 03:40 04/09/23 03:30 04/09/23 03:30 04/09/23 05:13 4 04/09/23 04:17 4 04/09/23 03:20 04/09/23 03:19 04/09/23 03:19 04/09/23 03:15 04/09/23 03:15 04/09/23 03:10 04/09/23 03:00 04/09/23 03:00 04/09/23 02:50 04/09/23 02:46 04/09/23 02:46 04/09/23 02:40 04/09/23 02:31 04/09/23 02:31 04/09/23 02:30 04/09/23 02:20 04/09/23 02:10 04/09/23 02:03 04/09/23 02:03 04/09/23 02:00 04/09/23 02:00 04/09/23 01:50 04/09/23 01:40 04/09/23 01:30 04/09/23 01:20 04/09/23 02:47 4 04/09/23 03:17 4 04/09/23 02:32 4 04/09/23 02:13 4 Laboratory Results 04/09/23 12:21 04/09/23 05:51 Diagnostic Findings Chest x-ray from today independently reviewed. The basilar pigtail catheter is in good position. No evidence of reaccumulation of pleural fluid. No pneumothorax. PG Care Time/CCT Total # of Minutes Spent Total Time Spent with Patient: Total time spent is greater than 50% in coordination of care (as documented) at patient's floor/unit and/or counseling patient: Coding Level of Care Code 54602 SUB INP/OBS CARE 2/35MIN Diagnoses Pleural effusion J90 Pleuritic chest pain R07.81
--- NOTE | 2023-04-09 13:45 | Hospitalist Progress Note ---
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 Downgraded from the ICU where he had significant bloody output from catheter, with symptomatic/significant anemia requiring transfusion, acute kidney injury and elevated lactate. Currently stable. LLL pneumonia Loculated pleural effusion Chest CTA - loculated left pleural effusion-previously significant bloody output from catheter, with anemia requiring transfusion. Hx of this on the right Continue Cefepime, doxycycline Per ICU, palliative referral placed for further discussion. Diffuse B Cell Lymphoma of head/neck:s/p 1 cycle of RCEOP (11/18/22 - 11/21/22) Chronic myelomonocytic leukemia: Chronic Thrombocytopenia: Transfusion reaction/to platelets transfusion: Following with Dr. Rojas - chemo on hold for now and patient just began receiving radiation to neck Soft tissue neck CT with necrotic lymph nodes are further decreased in size from prior exam Continue allopurinol for tumor lysis syndrome prophylaxis Hematology/Oncology consulted by ICU- considering bone marrow biopsy Paroxysmal A fib Following with cardiology. Continue amiodarone 200mg daily Chronic thrombocytopenia, h/o ITP stable Severe protein calorie malnutrition: Significant weight loss previously but appetite improving on Megace per . PAD: c/w statin. ABIs done on 03/17 showed R 0.87 and L 0.85 at rest concerning for occlusive disease to b/l SFA and tibial artery along with L iliac disease Arterial Doppler:Moderate atherosclerotic plaque within the bilateral lower extremities. Suspected occlusion of the distal left posterior tibial artery, otherwise patent vessels. Monophasic flow within the bilateral calf vessels Unstageable pressure ulcers, bilateral: following with wound care. Per notes, unable to debride eschar due to significant PAD. vacuum cleaner repair person consulted-appreciate input and recommendation H/o Dysphagia Continue minced and moist, easy to chew diet with thin liquids SSS S/P PPM in 2019 COPD: c/w home inhalers. no signs of exacerbation Disposition PCP: Dr. Bradshaw Code Status: DNR/DNI VTE Prophylaxis: SCDs, avoid chemical vte ppx given thrombocytopenia Dispo: admitted to PCU Admission and Anticipated Discharge Date Admission Date: April 05, 2023 Subjective Seen this PM after being downgraded from the ICU. present at bedside. Many questions after discussing the possibility of palliative care with ICU physician. Pt states he would like to travel to [place] and another location, does not believe it is safe or he is strong enough to do it. States that he is feeling better. Review of Systems Review of Systems: All systems reviewed & are unremarkable except as noted in Subjective Physical Exam Physical Exam: General: Alert, oriented. No acute distress, frail gentleman Psych: Appropriate mood and affect Neuro: difficulty moving HEENT: NC/AT CV: RRR Resp: hesitates with taking deep breaths Abdomen: Soft, nontender, nondistended. Extremities: No edema in lower extremities bilaterally. Results & Data Results & Data Vital Signs (Past 12 Hours) Vital Signs Temp Pulse Pulse Resp BP BP Pulse Ox 04/09/23 12:00 81 14 93 04/09/23 12:00 122/66 04/09/23 11:01 116/76 04/09/23 11:01 88 21 91 04/09/23 11:00 82 23 90 04/09/23 10:00 77 20 91 04/09/23 10:00 110/54 L 04/09/23 09:00 83 18 91 04/09/23 08:00 04/09/23 08:45 87 20 91 04/09/23 08:45 117/61 04/09/23 08:31 85 15 92 04/09/23 08:31 115/53 L 04/09/23 08:15 87 21 92 04/09/23 08:15 103/57 L 04/09/23 08:00 82 16 93 04/09/23 08:00 104/49 L 04/09/23 07:46 116/46 L 04/09/23 07:46 87 20 95 04/09/23 07:31 86 24 92 04/09/23 07:31 118/64 04/09/23 07:15 79 12 95 04/09/23 07:15 129/65 04/09/23 07:00 77 15 94 04/09/23 08:00 04/09/23 08:56 36.8 C 85 18 121/61 92 04/09/23 06:20 78 20 91 04/09/23 06:15 110/52 L 04/09/23 06:15 80 19 90 04/09/23 06:10 78 24 90 04/09/23 06:00 79 23 89 L 04/09/23 06:00 102/54 L 04/09/23 05:50 81 23 04/09/23 05:45 84 25 H 04/09/23 05:45 99/51 L 04/09/23 05:40 83 26 H 89 L 04/09/23 05:30 81 24 04/09/23 05:30 95/52 L 04/09/23 05:20 80 26 H 90 04/09/23 05:15 119/54 L 04/09/23 05:15 82 21 91 04/09/23 05:10 86 31 H 90 04/09/23 05:00 85 23 95 04/09/23 05:00 112/60 04/09/23 04:50 88 25 H 94 04/09/23 04:45 79 31 H 96 04/09/23 04:45 111/54 L 04/09/23 04:40 81 23 99 04/09/23 04:30 77 23 95 04/09/23 04:30 116/50 L 04/09/23 04:20 78 22 96 04/09/23 04:15 102/54 L 04/09/23 04:15 78 32 H 94 04/09/23 04:10 80 26 H 95 04/09/23 04:00 80 25 H 93 04/09/23 04:00 106/46 L 04/09/23 03:50 83 21 94 04/09/23 03:45 87 22 92 04/09/23 03:40 86 20 94 04/09/23 03:30 78 16 94 04/09/23 03:30 106/54 L 04/09/23 05:13 37.1 C 89 23 112/60 92 04/09/23 04:17 37 C 87 16 111/54 L 93 04/09/23 03:20 80 15 04/09/23 03:19 125/56 L 04/09/23 03:19 87 23 04/09/23 03:15 103/68 04/09/23 03:15 86 22 04/09/23 03:10 78 20 95 04/09/23 03:00 78 16 95 04/09/23 03:00 113/54 L 04/09/23 02:50 89 16 92 04/09/23 02:46 92 H 26 H 93 04/09/23 02:46 124/58 L 04/09/23 02:40 78 18 96 04/09/23 02:31 81 38 H 93 04/09/23 02:31 101/51 L 04/09/23 02:30 81 23 93 04/09/23 02:20 80 21 95 04/09/23 02:10 77 19 92 04/09/23 02:03 86 26 H 04/09/23 02:03 107/56 L 04/09/23 02:00 77 17 04/09/23 02:00 114/53 L 04/09/23 01:50 78 21 04/09/23 02:47 37.1 C 80 19 113/54 L 99 04/09/23 03:17 37.1 C 85 23 125/56 L 96 04/09/23 02:32 37.1 C 77 18 101/51 L 93 04/09/23 02:13 36.8 C 78 22 107/56 L 97 O2 Del Method O2 Flow Rate 04/09/23 12:00 04/09/23 12:00 04/09/23 11:01 04/09/23 11:01 Nasal Cannula 2 04/09/23 11:00 04/09/23 10:00 04/09/23 10:00 04/09/23 09:00 Nasal Cannula 2 04/09/23 08:00 Nasal Cannula 4 04/09/23 08:45 04/09/23 08:45 04/09/23 08:31 04/09/23 08:31 04/09/23 08:15 04/09/23 08:15 04/09/23 08:00 04/09/23 08:00 04/09/23 07:46 04/09/23 07:46 04/09/23 07:31 04/09/23 07:31 04/09/23 07:15 04/09/23 07:15 04/09/23 07:00 04/09/23 08:00 Nasal Cannula 2 04/09/23 08:56 Room Air 04/09/23 06:20 04/09/23 06:15 04/09/23 06:15 04/09/23 06:10 04/09/23 06:00 04/09/23 06:00 04/09/23 05:50 04/09/23 05:45 04/09/23 05:45 04/09/23 05:40 04/09/23 05:30 04/09/23 05:30 04/09/23 05:20 04/09/23 05:15 04/09/23 05:15 04/09/23 05:10 04/09/23 05:00 04/09/23 05:00 04/09/23 04:50 04/09/23 04:45 04/09/23 04:45 04/09/23 04:40 04/09/23 04:30 04/09/23 04:30 04/09/23 04:20 04/09/23 04:15 04/09/23 04:15 04/09/23 04:10 04/09/23 04:00 04/09/23 04:00 04/09/23 03:50 04/09/23 03:45 04/09/23 03:40 04/09/23 03:30 04/09/23 03:30 04/09/23 05:13 4 04/09/23 04:17 4 04/09/23 03:20 04/09/23 03:19 04/09/23 03:19 04/09/23 03:15 04/09/23 03:15 04/09/23 03:10 04/09/23 03:00 04/09/23 03:00 04/09/23 02:50 04/09/23 02:46 04/09/23 02:46 04/09/23 02:40 04/09/23 02:31 04/09/23 02:31 04/09/23 02:30 04/09/23 02:20 04/09/23 02:10 04/09/23 02:03 04/09/23 02:03 04/09/23 02:00 04/09/23 02:00 04/09/23 01:50 04/09/23 02:47 4 04/09/23 03:17 4 04/09/23 02:32 4 04/09/23 02:13 4
--- NOTE | 2023-04-09 14:54 | XRay Report ---
XR chest 1V portable HISTORY: post procedure cxr, removed chest tube COMPARISON: Chest 04/09/2023. FINDINGS: A left basilar chest tube has been removed. No pneumothorax. Left basilar linear scarlike d ensities persist. The heart is normal in size. Left-sided pacemaker and a right jugular central venou s catheter again noted. No significant pleural fusions. IMPRESSION: Interval removal of the left basilar chest tube. No definite pneumothorax. ACT 112: Negative or not required by law. Electronically signed by: Kyle Barker M.D. 04/09/2023 2:52 PM
[2023-04-09 18:01] LABS: Hematocrit (blood only) 26.7 % (42.0-52.0)
[2023-04-09] MEDS: oxyCODONE HCL IR 5 MG TAB (IMMEDIATE RELEASE) PO PRN (21:52)
[2023-04-10 00:05] LABS: BUN Creatinine Ratio 25.9 (10-20); Calcium 8.6 mg/dl (8.6-10.3); Creatinine Clr Calc Pharmacy 33.7 ml/min; Est GFR (African American) 47.7 ml/min; Est GFR (Non-African American) 41.2 ml/min; Potassium 4.2 mmol/L (3.5-5.1)
[2023-04-10] MEDS: oxyCODONE HCL IR 5 MG TAB (IMMEDIATE RELEASE) PO PRN ×2 (06:03→14:07)
[2023-04-10 07:27] LABS: BUN Creatinine Ratio 24.8 (10-20); Calcium 8.9 mg/dl (8.6-10.3); Creatinine Clr Calc Pharmacy 37.5 ml/min; Est GFR (African American) 51.2 ml/min; Est GFR (Non-African American) 44.1 ml/min; Magnesium 1.7 mg/dl (1.7-2.4); Phosphorus 3.6 mg/dl (2.5-4.9); Potassium 3.9 mmol/L (3.5-5.1)
[2023-04-10 07:33] LABS: INR 1.1 (0.9-1.1); Prothrombin Time 12.1 Seconds (9.0-12.0)
[2023-04-10 07:35] LABS: Hematocrit (blood only) 27.1 % (42.0-52.0); Hemoglobin 9.1 g/dl (14.0-18.0); Mean Corpuscular Hemoglobin 28.1 pg (25.0-34.0); Mean Corpuscular Hgb Conc 33.6 g/dL (32.0-36.0); Mean Corpuscular Volume 83.6 fL (80.0-100.0); Platelet Count 117 K/uL (130-400); RDW Coefficient of Variation 18.3 % (11.5-14.5); RDW Standard Deviation 55.5 fL (36.4-46.3); Red Blood Count 3.24 M/uL (4.70-6.10); White Blood Count 9.07 K/ul (4.8-10.8)
[2023-04-10 07:43] LABS: Basophils # (auto) 0.01 K/uL (0-0.2); Basophils % (auto) 0.1 %; Dohle Bodies 1+; Eosinophils # (auto) 0.24 K/uL (0-0.50); Eosinophils % (auto) 2.6 %; Immature Granulocytes # (auto) 0.04 K/uL (0.01-0.20); Immature Granulocytes % (auto) 0.4 %; Lymphocytes % (auto) 19.8 %; Monocytes # (auto) 2.68 K/uL (0.11-0.59); Monocytes % (auto) 29.5 %; Neutrophils % (auto) 47.6 %; Toxic Vacuolation 1+
[2023-04-10] MEDS: CEROVITE ADV FORMULA TAB PO SCH (08:00)
[2023-04-10] MEDS: allopurinoL 300 MG TAB PO SCH (08:00)
[2023-04-10] MEDS: MEGESTROL ACETATE 40 MG TAB PO SCH (08:01)
[2023-04-10] MEDS: METOPROLOL TARTRATE 25 MG TAB PO SCH ×2 (08:01→21:04)
[2023-04-10] MEDS: ATORVASTATIN 40 MG TAB PO SCH (08:01)
[2023-04-10] MEDS: PANTOprazole 40 MG TAB PO SCH (08:02)
[2023-04-10] MEDS: CYCLOBENZAPRINE HCL 10 MG TAB PO SCH ×2 (08:02→21:07)
[2023-04-10] MEDS: AMIODARONE 200 MG TAB PO SCH (08:03)
[2023-04-10] MEDS: THIAMINE HCL 200 MG in SODIUM CHLORIDE 0.9% 50 ML IV SCH (09:23)
[2023-04-10] MEDS: HYDROCODONE/ACETAMINOPHEN 7.5/325MG TAB PO PRN (10:28)
[2023-04-10] MEDS: CEFEPIME 1,000 MG in SYRINGE 0 ML IV SCH (10:33)
[2023-04-10] MEDS: HEPARIN 100 UNIT/ML 5ML FLUSH FLUSH PRN (11:20)
--- NOTE | 2023-04-10 11:20 | XRay Report ---
XR chest 1V portable CLINICAL HISTORY: Chest tube ? MIST 2 protocol TECHNIQUE: Single frontal radiograph of the chest was obtained. Comparison: Comparison is made to chest radiographs 04/09/2023 FINDINGS: Lines and tubes are stable. Calcified aortic knob is seen. The lungs are clear. No evidence of pleura l effusion or pneumothorax. IMPRESSION: No acute abnormality and in particular no evidence of pneumothorax. ACT 112: Negative or not required by law. Electronically signed by: Kvng Delatorre M.D. 04/10/2023 11:19 AM
--- NOTE | 2023-04-10 21:19 | Hospitalist Progress Note ---
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 Downgraded from the ICU where he had significant bloody output from catheter, with symptomatic/significant anemia requiring transfusion, acute kidney injury and elevated lactate. Currently stable. Awaiting palliative medicine recs. LLL pneumonia Loculated pleural effusion Chest CTA - loculated left pleural effusion-previously significant bloody output from catheter, with anemia requiring transfusion. Hx of this on the right Continue Cefepime, doxycycline Per ICU, palliative referral placed for further discussion. Diffuse B Cell Lymphoma of head/neck:s/p 1 cycle of RCEOP (11/18/22 - 11/21/22) Chronic myelomonocytic leukemia: Chronic Thrombocytopenia: Transfusion reaction/to platelets transfusion: Following with Dr. Rojas - chemo on hold for now and patient just began receiving radiation to neck Soft tissue neck CT with necrotic lymph nodes are further decreased in size from prior exam Continue allopurinol for tumor lysis syndrome prophylaxis Hematology/Oncology consulted by ICU- states will do bone marrow outpatient if needed at all. Paroxysmal A fib Following with cardiology. Continue amiodarone 200mg daily Chronic thrombocytopenia, h/o ITP stable Severe protein calorie malnutrition: Significant weight loss previously but appetite improving on Megace per . PAD: c/w statin. ABIs done on 03/17 showed R 0.87 and L 0.85 at rest concerning for occlusive disease to b/l SFA and tibial artery along with L iliac disease Arterial Doppler:Moderate atherosclerotic plaque within the bilateral lower extremities. Suspected occlusion of the distal left posterior tibial artery, otherwise patent vessels. Monophasic flow within the bilateral calf vessels Unstageable pressure ulcers, bilateral: following with wound care. Per notes, unable to debride eschar due to significant PAD. line driver consulted-appreciate input and recommendation H/o Dysphagia Continue minced and moist, easy to chew diet with thin liquids SSS S/P PPM in 2019 COPD: c/w home inhalers. no signs of exacerbation Disposition PCP: Dr. Bradshaw Code Status: DNR/DNI VTE Prophylaxis: SCDs, avoid chemical vte ppx given thrombocytopenia Dispo: admitted to PCU Admission and Anticipated Discharge Date Admission Date: April 05, 2023 Subjective Pt seen this AM. Spoke to in hallway. with many questions about his longevity, agreeable to following up with Palliative medicine. Pt states he is doing well. Review of Systems Review of Systems: All systems reviewed & are unremarkable except as noted in Subjective Physical Exam Physical Exam: General: Alert, oriented. No acute distress, frail gentleman Psych: Appropriate mood and affect Neuro: difficulty moving HEENT: NC/AT CV: RRR Resp: hesitates with taking deep breaths Abdomen: Soft, nontender, nondistended. Extremities: No edema in lower extremities bilaterally. Results & Data Results & Data Vital Signs (Past 12 Hours) Vital Signs Temp Pulse Pulse Resp BP Pulse Ox O2 Del Method 04/10/23 19:20 Nasal Cannula 04/10/23 19:09 37.0 C 86 20 116/67 90 Room Air 04/10/23 16:11 36.7 C 76 17 109/68 93 Nasal Cannula 04/10/23 15:55 76 04/10/23 11:26 37.1 C 84 20 110/66 93 Nasal Cannula O2 Flow Rate 04/10/23 19:20 2 04/10/23 19:09 04/10/23 16:11 2.0 04/10/23 15:55 04/10/23 11:26 2.0
[2023-04-10] MEDS ORDERED: CEFEPIME 2,000 MG in SYRINGE 0 ML IV SCH (22:00)
[2023-04-11] MEDS: oxyCODONE HCL IR 5 MG TAB (IMMEDIATE RELEASE) PO PRN ×2 (01:28→08:17)
[2023-04-11 07:25] LABS: BUN Creatinine Ratio 23.3 (10-20); Calcium 8.9 mg/dl (8.6-10.3); Creatinine Clr Calc Pharmacy 43.2 ml/min; Est GFR (African American) 60.6 ml/min; Est GFR (Non-African American) 52.3 ml/min; Potassium 4.4 mmol/L (3.5-5.1)
[2023-04-11 07:31] LABS: Basophils # (auto) 0.01 K/uL (0-0.2); Basophils % (auto) 0.1 %; Eosinophils # (auto) 0.25 K/uL (0-0.50); Eosinophils % (auto) 2.8 %; Hematocrit (blood only) 26.8 % (42.0-52.0); Hemoglobin 8.8 g/dl (14.0-18.0); Immature Granulocytes # (auto) 0.04 K/uL (0.01-0.20); Immature Granulocytes % (auto) 0.4 %; Lymphocytes # (auto) 1.99 K/uL (1.2-3.4); Lymphocytes % (auto) 22.1 %; Mean Corpuscular Hemoglobin 28.2 pg (25.0-34.0); Mean Corpuscular Hgb Conc 32.8 g/dL (32.0-36.0); Mean Corpuscular Volume 85.9 fL (80.0-100.0); Monocytes # (auto) 2.86 K/uL (0.11-0.59); Monocytes % (auto) 31.8 %; Neutrophils # (auto) 3.85 K/uL (1.40-6.50); Neutrophils % (auto) 42.8 %; Platelet Count 118 K/uL (130-400); RBC Morphology Unremarkable; RDW Coefficient of Variation 18.6 % (11.5-14.5); RDW Standard Deviation 57.6 fL (36.4-46.3); Red Blood Count 3.12 M/uL (4.70-6.10)
[2023-04-11] MEDS: AMIODARONE 200 MG TAB PO SCH (08:18)
[2023-04-11] MEDS: PANTOprazole 40 MG TAB PO SCH (08:19)
[2023-04-11] MEDS: MEGESTROL ACETATE 40 MG TAB PO SCH (08:19)
[2023-04-11] MEDS: METOPROLOL TARTRATE 25 MG TAB PO SCH ×2 (08:19→20:43)
[2023-04-11] MEDS: allopurinoL 300 MG TAB PO SCH (08:20)
[2023-04-11] MEDS: CEROVITE ADV FORMULA TAB PO SCH (08:21)
[2023-04-11] MEDS: ATORVASTATIN 40 MG TAB PO SCH (08:21)
[2023-04-11] MEDS: CYCLOBENZAPRINE HCL 10 MG TAB PO SCH ×2 (08:26→20:48)
[2023-04-11] MEDS: THIAMINE HCL 200 MG in SODIUM CHLORIDE 0.9% 50 ML IV SCH (08:27)
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
--- NOTE | 2023-04-11 12:37 | Hospitalist Progress Note ---
Date of Service April 11, 2023 Assessment & Plan (1) LLL pneumonia: (2) Loculated pleural effusion: (3) COPD with emphysema: (4) Tachy-boris syndrome: (5) Thrombocytopenia: (6) Frequent falls: (7) Paroxysmal atrial fibrillation: (8) Chronic ischemic heart disease: (9) B-cell lymphoma of lymph nodes of head: (10) Anemia: (11) CMML (chronic myelomonocytic leukemia): (12) HTN (hypertension): (13) Dyslipidemia: (14) PAD (peripheral artery disease): (15) Pressure ulcer of left heel, unstageable: (16) Pressure ulcer, heel, right, unstageable: (17) Cirrhosis of liver: Plan 73yo M with a complex PMH of 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 Downgraded from the ICU where he had significant bloody output from catheter, with symptomatic/significant anemia requiring transfusion, acute kidney injury and elevated lactate. Currently stable. LLL pneumonia Loculated pleural effusion Chest CTA - loculated left pleural effusion-previously significant bloody output from catheter, with anemia requiring transfusion. Hx of this on the right Cefepime, doxycycline given but stopped after pleural fluid cultures were negative. pigtail catheter has been out for 2 days now and there is no reaccumulation of fluid and no worsening SOB. Received XRT treatment today. Diffuse B Cell Lymphoma of head/neck:s/p 1 cycle of RCEOP (11/18/22 - 11/21/22) Chronic myelomonocytic leukemia: Chronic Thrombocytopenia: Transfusion reaction/to platelets transfusion: Following with Dr. Rojas - chemo on hold for now and patient just began receiving radiation to neck Soft tissue neck CT with necrotic lymph nodes are further decreased in size from prior exam Continue allopurinol for tumor lysis syndrome prophylaxis Hematology/Oncology consulted by ICU- states will consider bone marrow outpatient if needed Paroxysmal A fib Following with cardiology. Continue amiodarone 200mg daily Chronic thrombocytopenia, h/o ITP stable Severe protein calorie malnutrition: Significant weight loss previously but appetite improving on Megace PAD: c/w statin. ABIs done on 03/17 showed R 0.87 and L 0.85 at rest concerning for occlusive disease to b/l SFA and tibial artery along with L iliac disease Arterial Doppler:Moderate atherosclerotic plaque within the bilateral lower extremities. Suspected occlusion of the distal left posterior tibial artery, otherwise patent vessels. Monophasic flow within the bilateral calf vessels Unstageable foot ulcers, bilateral: following with wound care. Per notes, unable to debride eschar due to significant PAD. hoop maker machine consulted-appreciate input and recommendation H/o Dysphagia Continue minced and moist, easy to chew diet with thin liquids SSS S/P PPM in 2019 COPD: c/w home inhalers. no signs of exacerbation Disposition PCP: Dr. Bradshaw Code Status: DNR/DNI VTE Prophylaxis: SCDs, avoid chemical vte ppx given thrombocytopenia Dispo: admitted to PCU DO Hilda Guy Hospitalist Admission and Anticipated Discharge Date Admission Date: April 05, 2023 Subjective 73-year-old man with diffuse large B-cell lymphoma and CMML since fall 2021 presented with shortness of breath and left-sided chest wall pain found to have a left loculated pleural effusion with superimposed pneumonia. Pulm was consulted and recommended a pigtail catheter with initiation of the mist 2 protocol. Antibiotics were started. Pigtail catheter was placed on 04/06. Pleural effusion was exudative and bloody with cultures negative. His stay has been complicated by acute renal failure and significant anemia with lactic acidosis. He was placed in the critical care unit with a high likelihood of clinical deterioration and loss of organ function. Hypotension was felt likely secondary to hypovolemia as he had significant pleural fluid output after pigtail placement. CTA chest was negative for PE. During this admission conversations took place including his expression of a desire to live life and engage in several trips. He would prefer not to be in the hospital but is open to hospice care as outpatient. His organ function stabilized and improved and he was downgraded out of the ICU on 04-09. Hematology was consulted and felt his worsening anemia was likely due to chest tube and fibrinolytics with no evidence of worsening CMML or lymphoma given stability and improved platelet count and normal white blood cell count. Consideration of an outpatient bone marrow biopsy could be obtained if his blood counts declined again however this is stayed stable. Pigtail catheter was discontinued on 04/09 and he was clinically followed for reaccumulation of pleural fluid. Low threshold for proceeding with goal pleuroscopy or VATS evaluation given recurrent bleeding and clear etiology of the effusions. Since removal his breathing has been stable and he engaged in XRT therapy today. He does have pain from the wound in his foot and reports generalized body aches related to his cancer. He is still an avid smoker and on supplemental oxygen which he was not on prior to admission. We discussed the dangers of smoking around an oxygen source was present for this discussion also. He was seen by palliative care, but there was no decision to initiate hospice at this point. PT and OT have not evaluated yet. Review of Systems Review of Systems: All systems reviewed negative except as included above. Physical Exam Physical Exam: CONSTITUTIONAL: thin, vitals as above, NAD. EYES: normal conjunctivae, no scleral icterus ENT: external ear and nose normal, MMM NECK: trachea midline RESPIRATORY: clear to auscultation bilaterally, no crackles, rales or wheezes, normal respiratory effort CARDIOVASCULAR: regular rate and rhythm, S1 and 2 heard without murmurs, gallops or rubs, no JVD, no peripheral edema, GASTROINTESTINAL: soft, nontender, ND, no guarding MUSCULOSKELETAL: strength 5/5 throughout, head is normocephalic and atraumatic SKIN: warm and dry, sores on his heels NEUROLOGIC: CN 2-12 grossly intact, no sensory deficit, normal cognition, normal speech, no tremor PSYCHIATRIC: alert cooperative and oriented to person, place and time. Euthymic mood, makes good eye contact, language grossly intact, recent and remote memory grossly intact. Results & Data Results & Data Vital Signs (Past 12 Hours) Vital Signs Temp Pulse Pulse Resp BP Pulse Ox O2 Del Method 04/11/23 07:30 Nasal Cannula 04/11/23 10:49 36.9 C 79 18 105/57 L 94 Nasal Cannula 04/11/23 08:08 36.9 C 91 H 19 104/59 L 94 Nasal Cannula 04/11/23 07:55 76 04/11/23 03:22 36.7 C 83 20 117/70 97 Nasal Cannula O2 Flow Rate 04/11/23 07:30 2 04/11/23 10:49 2 04/11/23 08:08 2 04/11/23 07:55 04/11/23 03:22 2.0 Laboratory Results Short CBC 04/11/23 Range/Units 06:44 WBC 9.00 (4.8-10.8) K/ul Hgb 8.8 L (14.0-18.0) g/dl Hct 26.8 L (42.0-52.0) % Plt Count 118 L (130-400) K/uL BMP 04/11/23 06:44 Sodium 137 Potassium 4.4 Chloride 107 Carbon Dioxide 25 BUN 31 H Creatinine 1.33 Glucose 89 Calcium 8.9 Medications Administered Current Inpatient Medications Acetaminophen (Acetaminophen 325 Mg Tab) 650 mg PO Q4H PRN PRN Reason: Fever/Mild Pain (Pain 1,2,3) Stop: 05/09/23 12:14 Hydrocodone Bitart/Acetaminophen (Hydrocodone/Acetaminophen 7.5/325mg Tab) 1 tab PO Q6H PRN PRN Reason: pain (scale score 7-10) Stop: 04/19/23 18:18 Last Admin: 04/10/23 10:28 Dose: 1 tab Albuterol (Albuterol Hfa 8 Gm Inhaler) 1 puffs INH QID PRN PRN Reason: sob Stop: 05/05/23 18:18 Albuterol (Albut/Ipratrop 3mg/0.5mg Neb 3 Ml Vial) 3 ml NEB QIDR PRN; Protocol PRN Reason: Shortness Of Breath Or Wheezing Stop: 05/05/23 18:22 Allopurinol (Allopurinol 300 Mg Tab) 150 mg PO QAM [facility] Stop: 05/08/23 08:59 Last Admin: 04/11/23 08:20 Dose: 150 mg Amiodarone HCl (Amiodarone 200 Mg Tab) 200 mg PO QAM [facility] Stop: 05/08/23 00:59 Last Admin: 04/11/23 08:18 Dose: 200 mg Atorvastatin Calcium (Atorvastatin 40 Mg Tab) 40 mg PO QAM [facility] Stop: 05/06/23 08:59 Last Admin: 04/11/23 08:21 Dose: 40 mg Cyclobenzaprine HCl (Cyclobenzaprine Hcl 10 Mg Tab) 10 mg PO BID [facility] Stop: 05/05/23 20:59 Last Admin: 04/11/23 08:26 Dose: 10 mg Heparin Sodium (Porcine) (Heparin 100 Unit/Ml 5ml Flush) 5 ml FLUSH PRN PRN PRN Reason: Flush Stop: 05/06/23 00:14 Last Admin: 04/10/23 11:20 Dose: 5 ml Hydromorphone HCl (Hydromorphone Inj 0.5 Mg/0.5 Ml Syr) 0.25 mg IV Q6H PRN PRN Reason: Pain Stop: 04/22/23 02:47 Last Admin: 04/09/23 12:19 Dose: 0.25 mg Thiamine HCl 200 mg/ Sodium (Chloride) 52 mls @ 210 mls/hr IV QAM [facility] Stop: 05/08/23 09:29 Last Infusion: 04/11/23 08:55 Dose: Infused Megestrol Acetate (Megestrol Acetate 40 Mg Tab) [facility] Stop: 05/06/23 08:59 Last Admin: 04/11/23 08:19 Dose: 40 mg Metoprolol Tartrate (Metoprolol Tartrate 25 Mg Tab) 12.5 mg PO BID [facility] Stop: 05/08/23 08:59 Last Admin: 04/11/23 08:19 Dose: 12.5 mg Multivitamins/Minerals (Cerovite Adv Formula Tab) [facility] Stop: 05/06/23 08:59 Last Admin: 04/11/23 08:21 Dose: 1 tab Ondansetron HCl (Ondansetron Inj 2 Mg/Ml 2 Ml Vial) 4 mg IV Q6H PRN PRN Reason: Nausea Stop: 05/05/23 18:22 Oxycodone HCl (Oxycodone Hcl Ir 5 Mg Tab (Immediate Release)) 10 mg PO Q6H PRN PRN Reason: Severe Pain (7,8,9,10) on NRS Stop: 04/23/23 12:14 Last Admin: 04/11/23 08:17 Dose: 10 mg Oxycodone HCl (Oxycodone Hcl Ir 5 Mg Tab (Immediate Release)) 5 mg PO Q6H PRN PRN Reason: Moderate Pain (4,5,6) on NRS Stop: 04/23/23 12:14 Last Admin: 04/09/23 16:01 Dose: 5 mg Pantoprazole Sodium (Pantoprazole 40 Mg Tab) 40 mg PO DAILY JOÃO Stop: 05/06/23 08:59 Last Admin: 04/11/23 08:19 Dose: 40 mg Polyethylene Glycol (Polyethylene (Miralax) 17 Gm Pack) 17 gm PO DAILY PRN PRN Reason: Constipation Stop: 05/05/23 18:22 Last Admin: 04/09/23 03:17 Dose: 17 gm
[2023-04-11] MEDS: HYDROCODONE/ACETAMINOPHEN 7.5/325MG TAB PO PRN ×2 (12:41→19:24)
[2023-04-11] MEDS ORDERED: HYDROmorphone INJ 0.5 MG/0.5 ML SYR IV PRN (15:45)
[2023-04-11] MEDS ORDERED: MELATONIN 3 MG TAB PO PRN (19:25)
[2023-04-11] MEDS: NICOTINE 21 MG/24 HR TDSY TD SCH (20:42)
[2023-04-12] MEDS: HYDROCODONE/ACETAMINOPHEN 7.5/325MG TAB PO PRN ×2 (03:29→09:23)
[2023-04-12 08:44] LABS: Hemoglobin 9.2 g/dl (14.0-18.0); Mean Corpuscular Hemoglobin 28.2 pg (25.0-34.0); Mean Corpuscular Hgb Conc 32.9 g/dL (32.0-36.0); Mean Corpuscular Volume 85.9 fL (80.0-100.0); Platelet Count 120 K/uL (130-400); RDW Coefficient of Variation 18.4 % (11.5-14.5); RDW Standard Deviation 57.5 fL (36.4-46.3); Red Blood Count 3.26 M/uL (4.70-6.10); White Blood Count 8.52 K/ul (4.8-10.8)
[2023-04-12 08:47] LABS: ALC (manual) 3.15 K/uL (1.2-3.4); Anisocytosis Present; Basophils # (manual) 0.17 K/uL (0-0.2); Basophils % (manual) 2 %; Eosinophils # (manual) 0.26 K/uL (0-0.50); Eosinophils % (manual) 3 %; Hypogranular Neutrophils 1+; Lymphocytes # (manual) 1.87 K/uL (1.2-3.4); Lymphocytes % (manual) 22 %; Monocytes # (manual) 1.02 K/uL (0.11-0.59); Monocytes % (manual) 12 %; Neutrophils % (manual) 47 %; Polychromasia 1+; Reactive Lymphocytes # (manual) 1.28 K/uL; Reactive Lymphocytes % (manual) 15 %
[2023-04-12] MEDS: CEROVITE ADV FORMULA TAB PO SCH (09:24)
[2023-04-12] MEDS: METOPROLOL TARTRATE 25 MG TAB PO SCH ×2 (09:24→20:41)
[2023-04-12] MEDS: CYCLOBENZAPRINE HCL 10 MG TAB PO SCH ×2 (09:24→20:42)
[2023-04-12] MEDS: ATORVASTATIN 40 MG TAB PO SCH (09:24)
[2023-04-12] MEDS: PANTOprazole 40 MG TAB PO SCH (09:25)
[2023-04-12] MEDS: MEGESTROL ACETATE 40 MG TAB PO SCH (09:25)
[2023-04-12] MEDS: allopurinoL 300 MG TAB PO SCH (09:25)
[2023-04-12] MEDS: AMIODARONE 200 MG TAB PO SCH (09:25)
[2023-04-12] MEDS: THIAMINE HCL 200 MG in SODIUM CHLORIDE 0.9% 50 ML IV SCH (10:29)
--- NOTE | 2023-04-12 12:48 | Hospitalist Progress Note ---
Date of Service April 12, 2023 Assessment & Plan (1) LLL pneumonia: (2) Loculated pleural effusion: (3) COPD with emphysema: (4) Tachy-boris syndrome: (5) Thrombocytopenia: (6) Frequent falls: (7) Paroxysmal atrial fibrillation: (8) Chronic ischemic heart disease: (9) B-cell lymphoma of lymph nodes of head: (10) Anemia: (11) CMML (chronic myelomonocytic leukemia): (12) HTN (hypertension): (13) Dyslipidemia: (14) PAD (peripheral artery disease): (15) Pressure ulcer of left heel, unstageable: (16) Pressure ulcer, heel, right, unstageable: (17) Cirrhosis of liver: Plan 73yo M with a complex PMH of 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 Downgraded from the ICU where he had significant bloody output from catheter, with symptomatic/significant anemia requiring transfusion, acute kidney injury and elevated lactate. Currently stable. LLL pneumonia Loculated pleural effusion Chest CTA - loculated left pleural effusion-previously significant bloody output from catheter, with anemia requiring transfusion. Hx of this on the right No further dyspnea but patient still requiring small amount of oxygen which is new for him. Will need 2 step prior to discharge in case he needs to go home with oxygen. Cefepime, doxycycline given but stopped after pleural fluid cultures were negative. pigtail catheter has been out for 2 days now and there is no reaccumulation of fluid and no worsening SOB. Continues XRT to neck treatment daily. Diffuse B Cell Lymphoma of head/neck:s/p 1 cycle of RCEOP (11/18/22 - 11/21/22) Chronic myelomonocytic leukemia: Chronic Thrombocytopenia: Transfusion reaction/to platelets transfusion: Following with Dr. Rojas - chemo on hold for now and patient just began receiving radiation to neck Soft tissue neck CT with necrotic lymph nodes are further decreased in size from prior exam Continue allopurinol for tumor lysis syndrome prophylaxis Hematology/Oncology consulted by ICU- states will consider bone marrow outpatient if needed Paroxysmal A fib Following with cardiology. Continue amiodarone 200mg daily Chronic thrombocytopenia, h/o ITP stable Severe protein calorie malnutrition: Significant weight loss previously but appetite improving on Megace PAD: c/w statin. ABIs done on 03/17 showed R 0.87 and L 0.85 at rest concerning for occlusive disease to b/l SFA and tibial artery along with L iliac disease Arterial Doppler:Moderate atherosclerotic plaque within the bilateral lower extremities. Suspected occlusion of the distal left posterior tibial artery, otherwise patent vessels. Monophasic flow within the bilateral calf vessels Unstageable foot ulcers, bilateral: following with wound care. Per notes, unable to debride eschar due to significant PAD. welder tool and die consulted-appreciate input and recommendation. Continue hydrocodone per home regimen to palliate pain. H/o Dysphagia Continue minced and moist, easy to chew diet with thin liquids SSS S/P PPM in 2019 COPD: c/w home inhalers. no signs of exacerbation Disposition PCP: Dr. Bradshaw Code Status: DNR/DNI VTE Prophylaxis: SCDs, avoid chemical vte ppx given thrombocytopenia Dispo: admitted to PCU DO Hilda Guy Hospitalist Admission and Anticipated Discharge Date Admission Date: April 05, 2023 Subjective 73-year-old man with diffuse large B-cell lymphoma and CMML since fall 2021 presented with shortness of breath and left-sided chest wall pain found to have a left loculated pleural effusion with superimposed pneumonia. Known PAD with bilateral foot ulcers that are painful Scheduled hydrocodone with PRN Dilaudid for breakthrough XRT today for neck at 2pm planned Pt initially said he was fine [facility] at home but later CM spoke with who does not want this Patient declined SNF and is waiting on PT/OT assessments reports he cannot ambulate Denes SOB Review of Systems Review of Systems: no issues Physical Exam Physical Exam: CONSTITUTIONAL: thin, vitals as above, NAD. EYES: normal conjunctivae, no scleral icterus ENT: external ear and nose normal, MMM NECK: trachea midline RESPIRATORY: clear to auscultation bilaterally, no crackles, rales or wheezes, normal respiratory effort CARDIOVASCULAR: regular rate and rhythm, S1 and 2 heard without murmurs, gallops or rubs, no JVD, no peripheral edema, GASTROINTESTINAL: soft, nontender, ND, no guarding MUSCULOSKELETAL: strength 5/5 throughout, head is normocephalic and atraumatic SKIN: warm and dry, sores on his heels NEUROLOGIC: CN 2-12 grossly intact, no sensory deficit, normal cognition, normal speech, no tremor PSYCHIATRIC: alert cooperative and oriented to person, place and time. Euthy antoine mood, makes good eye contact, language grossly intact, recent and remote memory grossly intact. Results & Data Results & Data Vital Signs (Past 12 Hours) Vital Signs Temp Pulse Pulse Resp BP BP Pulse Ox 04/12/23 08:00 90 04/12/23 11:55 04/12/23 11:01 37.2 C 86 20 96/60 L 94 04/12/23 07:05 36.9 C 82 18 126/72 92 04/12/23 03:31 36.8 C 88 18 113/70 94 O2 Del Method O2 Flow Rate 04/12/23 08:00 04/12/23 11:55 Nasal Cannula 2 04/12/23 11:01 Nasal Cannula 2 04/12/23 07:05 Nasal Cannula 2 04/12/23 03:31 Nasal Cannula Laboratory Results Short CBC 04/12/23 Range/Units 06:47 WBC 8.52 (4.8-10.8) K/ul Hgb 9.2 L (14.0-18.0) g/dl Hct 28.0 L (42.0-52.0) % Plt Count 120 L (130-400) K/uL
[2023-04-12] MEDS: HYDROCODONE/ACETAMINOPHEN 7.5/325MG TAB PO SCH ×2 (13:06→20:41)
--- NOTE | 2023-04-12 15:02 | Palliative Care Progress Note ---
Date of Service April 12, 2023 Assessment & Plan (1) Pain: Plan: Improved. Hydrocodone appears to be more effective for him than oxycodone. Routine dosing per Dr. Simon (2) Palliative care encounter: Plan: Gerard did not recall most of our conversation about goals yesterday. He tells me that his goal is to "get better", which to him means being able to get out and do things with his . He is DNR but is otherwise willing to pursue whatever treatment necessary toward that goal. We talked about whether he would feel the same way if he were not able to get better and time were short for him. He tells me that he would still want to try. His supports his decision. She feels that they are managing ok at home and does have home care nursing support. She Admission and Anticipated Discharge Date Admission Date: April 05, 2023 Subjective Feels pain is a little better today. He had prn hydrocodone x 2 with one dose of hydromorphone in last 24 hours. Review of Systems Review of Systems: Pain 1/3 Dyspnea 0/3 Nausea 0/3 Drowsiness 0/3 Physical Exam Constitutional: + ill appearing; no acute distress Respiratory: normal respiratory effort; no labored breathing and no cough Neurologic: mild confusion, difficulty with recall Results & Data Vital Signs (Past 12 Hours) Vital Signs Temp Pulse Pulse Resp BP BP Pulse Ox 04/12/23 14:02 98.1 F 96 H 16 116/73 92 04/12/23 08:00 90 04/12/23 11:55 04/12/23 11:01 99.0 F 86 20 96/60 L 94 04/12/23 07:05 98.4 F 82 18 126/72 92 04/12/23 03:31 98.2 F 88 18 113/70 94 O2 Del Method O2 Flow Rate 04/12/23 14:02 Nasal Cannula 2 04/12/23 08:00 04/12/23 11:55 Nasal Cannula 2 04/12/23 11:01 Nasal Cannula 2 04/12/23 07:05 Nasal Cannula 2 04/12/23 03:31 Nasal Cannula PG Care Time/CCT Total # of Minutes Spent Total Time Spent with Patient: Total time spent is greater than 50% in coordination of care (as documented) at patient's floor/unit and/or counseling patient: Coding Level of Care Code 86534 SUB INP/OBS CARE MIN Diagnoses Pain R52 Palliative care encounter Z51.5
[2023-04-12] MEDS: NICOTINE 21 MG/24 HR TDSY TD SCH (20:32)
[2023-04-13] MEDS: HYDROCODONE/ACETAMINOPHEN 7.5/325MG TAB PO SCH ×3 (02:36→13:04)
[2023-04-13] MEDS: THIAMINE HCL 200 MG in SODIUM CHLORIDE 0.9% 50 ML IV SCH (08:25)
[2023-04-13] MEDS: CYCLOBENZAPRINE HCL 10 MG TAB PO SCH ×2 (08:26→08:38)
[2023-04-13] MEDS: allopurinoL 300 MG TAB PO SCH (08:27)
[2023-04-13] MEDS: AMIODARONE 200 MG TAB PO SCH (08:29)
[2023-04-13] MEDS: MEGESTROL ACETATE 40 MG TAB PO SCH (08:29)
[2023-04-13] MEDS: ATORVASTATIN 40 MG TAB PO SCH (08:30)
[2023-04-13] MEDS: CEROVITE ADV FORMULA TAB PO SCH (08:30)
[2023-04-13] MEDS: METOPROLOL TARTRATE 25 MG TAB PO SCH (08:31)
[2023-04-13] MEDS: PANTOprazole 40 MG TAB PO SCH (08:31)
--- NOTE | 2023-04-13 10:44 | XRay Report ---
XR chest 1V portable HISTORY: hypoxia COMPARISON: Chest 04/10/2023. FINDINGS: No pneumothorax. Stable blunting left lateral costophrenic sulci with linear scarlike densi ty within the left mid to lower lung zone. No new focal lung consolidations. No evidence for pulmonar y edema. The heart is normal in size. The left-sided dual-chamber pacemaker. Right jugular Port-A-Cat h terminates in the SVC. Aortic knob calcifications are again noted. IMPRESSION: No change compared to the prior study. No pneumothorax. ACT 112: Negative or not required by law. Electronically signed by: Kyle Barker M.D. 04/13/2023 10:42 AM
--- NOTE | 2023-04-13 14:21 | Discharge Summary ---
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 Patient started to feel more short of breath over the March 29 weekend and then developed pain on left chest wall over the past few days that is worse with deep inspiration or movement. Associated symptoms include generalized weakness and productive cough. Denies any fever, chills, lightheadedness, wheezing, nausea, vomiting abdominal pain, dysuria, diarrhea or constipation. Patient is not on oxygen at home. Has history of COPD and continues to smoke 0.5-1 pack of cigarettes per day. Appetite has significantly improved with use of Megace. Had a normal bowel movement earlier today. Taking all medications as prescribed. Of note, was admitted in December for PNA, R sided loculated effusion with chest tube placement. Pleural fluid was exudative, pathology did not show any malignancy. Admission Exam Per Admitting Provider General Appearance:WD/WN, vitals as above, NAD, sitting up in bed, pleasant, appears cachectic, frail Head: normocephalic, atraumatic Eyes:normal inspection, PERRL, conjunctivae normal, anicteric sclerae ENT: external ear and nose normal, oropharynx normal Neck: normal visual inspection, trachea midline, no thyromegaly Respiratory:normal respiratory effort, decreased breath sounds throughout L>R, + rales, no wheezing. No accessory muscle use Cardiovascular: regular rate, rhythm, no murmur, normal peripheral pulses, no BLE edema. Vessels: no JVD Chest: normal inspection of chest. L chest wall TTP with palpation Abdomen/GI: normal bowel sounds, soft, nontender, no hepatosplenomegaly Extremities/Musculoskeletal: no cyanosis or clubbing, extremities motor strength 5/5 Neurologic: PERRL, EOMI, accommodation nl, no face palsy, no dysarthria, CN's II-XI intact bilaterally and moves all extremities Psychiatric:A+Ox3 but poor insight to condition, euthymic affect Skin: no rashes, normal color, warm/dry. + bilateral pressure ulcers with eschar present, 1+ PT and DP pulses Principal Diagnosis Pneumonia, loculated pleural Effusion Discharge Exam General: Alert, oriented. No acute distress, frail gentleman Psych: Appropriate mood and affect Neuro: difficulty moving HEENT: NC/AT CV: RRR Resp: hesitates with taking deep breaths Abdomen: Soft, nontender, nondistended. Extremities: No edema in lower extremities bilaterally. Discharge Data Allergies Allergy/AdvReac Type Severity Reaction Status Date / Time cephalexin AdvReac Intermediate vomiting, Verified 04/04/23 15:11 diarrhea Consultations 04/05/23 15:28 ED Decision to Admit Stat 04/05/23 16:25 Consult Pulmonology Routine 04/08/23 08:23 Consult Solutions Architect Routine 04/09/23 07:25 Consult Hematology Routine 04/09/23 12:17 Consult Palliative Care Routine Ordered Studies 04/05/23 13:09 CT abd pelvis IV con only Stat CT angio chest PE protocol Stat 04/08/23 06:29 CT abd pelvis wo con Stat Hospital Course (1) LLL pneumonia: (2) Loculated pleural effusion: (3) COPD with emphysema: (4) Tachy-boris syndrome: (5) Thrombocytopenia: (6) Frequent falls: (7) Paroxysmal atrial fibrillation: (8) Chronic ischemic heart disease: (9) B-cell lymphoma of lymph nodes of head: (10) Anemia: (11) CMML (chronic myelomonocytic leukemia): (12) HTN (hypertension): (13) Dyslipidemia: (14) PAD (peripheral artery disease): (15) Pressure ulcer of left heel, unstageable: (16) Pressure ulcer, heel, right, unstageable: (17) Cirrhosis of liver: Plan 73yo M with a complex PMH of 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 During his hospital stay he was admitted to the ICU where he had significant bloody output from his pigtail catheter, with symptomatic/significant anemia requiring transfusion, acute kidney injury and elevated lactate. Catheter has since been removed and pt is stable on discharge. LLL pneumonia Loculated pleural effusion Chest CTA - loculated left pleural effusion-previously significant bloody output from catheter, with anemia requiring transfusion. Hx of this on the right No further dyspnea but patient still requiring small amount of oxygen which is new for him. Will be discharged with oxygen for home use Cefepime, doxycycline given but stopped after pleural fluid cultures were negative. pigtail catheter has been out for a few days and there is no reaccumulation of fluid and no worsening SOB. Diffuse B Cell Lymphoma of head/neck:s/p 1 cycle of RCEOP (11/18/22 - 11/21/22) Chronic myelomonocytic leukemia: Chronic Thrombocytopenia: Transfusion reaction/to platelets transfusion: Following with Dr. Rojas - chemo on hold for now and patient just began receiving radiation to neck Soft tissue neck CT with necrotic lymph nodes are further decreased in size from prior exam Continues XRT to neck treatment daily. Continue allopurinol for tumor lysis syndrome prophylaxis Hematology/Oncology consulted by ICU- states will consider bone marrow outpatient if needed Paroxysmal A fib Following with cardiology. Continue amiodarone 200mg daily Chronic thrombocytopenia, h/o ITP stable Severe protein calorie malnutrition: Significant weight loss previously but appetite improving on Megace PAD: c/w statin. ABIs done on 03/17 showed R 0.87 and L 0.85 at rest concerning for occlusive disease to b/l SFA and tibial artery along with L iliac disease Arterial Doppler:Moderate atherosclerotic plaque within the bilateral lower extremities. Suspected occlusion of the distal left posterior tibial artery, otherwise patent vessels. Monophasic flow within the bilateral calf vessels Unstageable foot ulcers, bilateral:following with wound care. Per notes, unable to debride eschar due to significant PAD. frit coater consulted-waffle boots, leg elevation Continue hydrocodone per home regimen to palliate pain. H/o Dysphagia Continue minced and moist, easy to chew diet with thin liquids SSS S/P PPM in 2019 COPD: c/w home inhalers. no signs of exacerbation Total Time Total Time Spent Total Time Spent (In Minutes): >30 minutes Discharge Plan Discharge Items Patient Disposition: Home - Home Health Services Reason For Visit: LLL PNA, LOCULATED PLEURAL EFFUSION Discharge Diagnosis: Pneumonia, Pleural Effusion Condition on Discharge: Fair Activity: Per Instructions section Non-emergency contact: Primary Care Provider, Oncologist and Surgical Product Sales Consultant Call non-emergency contact if: you have any medication questions and your sy mptoms worsen Follow-up/Referrals: [facility],Hospital [Primary Care Provider] - Diet: Regular Addtl Attending Provider Instructions: You are being discharged home with home health services after having a pneumonia and fluid around your lung. You required placement of a chest tube that has since been taken out and we also treated you with antibiotics while you were in the hospital. You completed the course of antibiotics in the hospital. We discussed with you many options for retirement care including going home with hospice services which you declined. You preference was to go home with home health services and we assisted with getting that in place for you. Continue taking your previous home medications as prescribed. No further changes were made. Continue with Home Health Services and close follow up with your primary care provider as well as your specialists. Pending Studies at Discharge: No Stand-Alone Forms: [email or web address], Smoking Cessation Medications and DC Order Prescriptions: Continued pantoprazole 40 mg Tablet,Delayed Release (Dr/Ec) 40 mg PO DAILY Ear Drops (carbamide peroxide) 6.5 % Drops 5 drp OTR BID PRN (Reason: earwax) Qty: 15 0RF Rx Instructions: Use twice a day up to 4 days as needed Cerovite Senior 0.4 mg-300 mcg- 250 mcg Tablet 1 tab PO QAM Qty: 30 0RF cyclobenzaprine 10 mg Tablet 10 mg PO BID Qty: 60 0RF atorvastatin 40 mg Tablet 40 mg PO QAM Qty: 30 0RF polyethylene glycol 3350 [Miralax] 17 gram Powder In Packet 17 g PO QAM PRN (Reason: Constipation) Qty: 14 0RF metoprolol tartrate [Lopressor] 50 mg tablet 50 mg PO BID Qty: 60 0RF allopurinol 300 mg Tablet 300 mg PO QAM Qty: 30 0RF albuterol sulfate 90 mcg/actuation Hfa Aerosol Inhaler 1 inh INHALATION QID PRN (Reason: sob) Qty: 6.7 0RF ondansetron 4 mg Tablet,Disintegrating 4 mg PO Q8H PRN (Reason: Nausea) Qty: 10 0RF megestrol 40 mg Tablet 40 mg PO QAM Qty: 30 0RF amiodarone 200 mg tablet 200 mg PO QAM hydrocodone-acetaminophen 7.5-325 mg tablet 1 tab PO Q6H PRN (Reason: pain (scale score 7-10)) Qty: 12 0RF Rx Instructions: Watch for sedation Discharge Orders: Discharge Order (Routine); Ordered 04/13/23 Ordered By: Shamika Navarro Admission Data Admit Date/Time: 04/05/23 15:48 Attending Provider: Shamika Navarro Admit Provider: Carline Chance Primary Care Provider: [facility] Other Providers: Lilly Benton ; Carline Chance ; Mason Navarro ; Jamiosn Doss ; iNyah Rojas ; Anjelica Darling ; Joanna Cordova ; Vicki Simon
--- NOTE | 2023-04-15 09:27 | Coding Query ---
ANEMIA To promote full compliance with coding requirements relating to patient care, physician participation is requested in all cases of patient coordinator uncertainty. Please assist us with the question(s) below: Coding Question(s): The record reflects the following clinical findings: Discharge wagnery , progress notes mention anemia. 04/09 Oncology Consult documented anemia near baseline possibly due to bleeding from Chest tube/fibrolytics. If these findings are indicative of anemia, please specify the known or suspected type by placing an "X" within the parenthesis (x). If other, please document type. Examples are: (X ) Acute blood loss anemia ( ) Acute Postoperative blood loss anemia ( ) Acute postoperative anemia due to dilutional fluids ( ) Chronic blood loss anemia ( ) Anemia of chronic disease ( ) Aplastic anemia ( ) Anemia due to renal disease ( ) Anemia in neoplastic disease ( ) Iron deficient anemia ( ) Anemia, unspecified or other ( ) Other: (please specify) Thank you OLI Kamara CCS
== END 2023-04-13 17:38 | disposition home health service (06) | DRG 193 ==
LOC: ED 12:18 → EDINP 15:48 → SUATTDRO 15:48 → 2S 20:25 → 1E 04-08 08:44 → 2S 04-09 17:12

== ENCOUNTER 2023-05-18 13:57 | Inpatient (IN) ==
--- NOTE | 2023-05-18 14:05 | ED Triage Note ---
Date of Service May 18, 2023 History of Present Illness This patient was briefly evaluated while in triage. An abbreviated physical exam was performed. This patient is a 73-year-old Male who presents to the ED for evaluation of sores on his b/l feet. Seeing the wound clinic, however about 4 days ago the wounds became red and swollen. Concern for infection. Can't walk due to pain. Has had some mildly increased sob the past few days. Has several complicating medical conditions. Recently transitioned from Vicodin to Oxycodone. Pain 10/10 when attempting to walk. Physical Exam Limited Triage Exam: VITALS: Vitals are noted on the nurse's note and reviewed by myself. Vital signs stable. GENERAL: Chronicall ill appearing white male presenting with family in wheelchair HEART: Regular rate and rhythm LUNGS: Distant but fairly clear NEURO: Patient was alert and oriented to person place and time. CN II through XII grossly intact. Initial orders for labs and / or imaging were placed and patient was placed in the waiting area until a bed is available. Please see further documentation for the full ED course. MDM / Impression Impression Impression: Osteomyelitis
--- NOTE | 2023-05-18 15:45 | XRay Report ---
XR chest 1V not portable HISTORY: Sepsis COMPARISON: Chest 05/04/2023. FINDINGS: There is a left-sided dual-chamber pacemaker. A right jugular Port-A-Cath remains at the SV C. This remains unchanged. No pneumothorax. No pleural effusions. The cardiac silhouette is mildly en larged. There is mild interstitial thickening. This has slightly progressed.. No new focal lung conso lidations. Degenerative changes again noted within the shoulders. IMPRESSION: Slight progression of the mild interstitial thickening. This may represent mild congestive change on the background of chronic interstitial thickening. ACT 112: Negative or not required by law. Electronically signed by: Kyle Barker M.D. 05/18/2023 3:44 PM
--- NOTE | 2023-05-18 16:20 | XRay Report ---
XR foot LT min 3V routine, XR ankle LT min 3V routine CLINICAL HISTORY: ankle and foot wounds TECHNIQUE: 3 views of the left foot and 3 views of the left ankle were obtained. Comparison: None available at the time of this dictation. FINDINGS: No evidence of bony erosion is seen. The joint spaces are well preserved. Vascular calcifications are noted. IMPRESSION: No radiographic evidence of osteomyelitis. If clinical concern remains, MRI is a more sensitive modal ity. ACT 112: Negative or not required by law. Electronically signed by: Kvng Delatorre M.D. 05/18/2023 4:18 PM
--- NOTE | 2023-05-18 16:23 | XRay Report ---
XR foot RT min 3V routine, XR ankle RT min 3V routine CLINICAL HISTORY: Bilateral ankle and foot wounds COMPARISON STUDY: Right ankle 03/01/2023. FINDINGS: Diffuse soft tissue swelling within the right ankle and right foot. Mild vascular calcifica tions are noted. Cortical plate and screws transfixing the old, healed distal tibial and fibular frac tures. The hardware appears intact. No abnormal periprosthetic lucency. The Lisfranc joint is intact. The bones are osteopenic. A 1.7 cm skin ulceration at the posterior lateral heel. Subtle loss of the cortex within the posterior lateral calcaneus adjacent to the skin ulceration. This is consistent wi th a site of osteomyelitis. This is best seen on the right ankle series. IMPRESSION: A 1.7 cm skin ulceration at the posterior lateral heel. Subtle loss of the cortex within the posterior lateral calcaneus adjacent to the skin ulceration. This is consistent with a site of o steomyelitis. ACT 112: Negative or not required by law. Electronically signed by: Kyle Barker M.D. 05/18/2023 4:22 PM
[2023-05-18 17:09] LABS: Albumin Level 4.2 gm/dl (3.4-5.0); Bilirubin Direct 0.2 mg/dl (0-0.2); Calcium 9.2 mg/dl (8.6-10.3); Creatinine Clr Calc Pharmacy 38.2 ml/min; Est GFR (African American) 68.6 ml/min; Est GFR (Non-African American) 59.2 ml/min; Magnesium 2.2 mg/dl (1.7-2.4); Total Protein 7.8 gm/dl (6.0-8.3)
[2023-05-18 17:13] LABS: Hematocrit (blood only) 33.4 % (42.0-52.0); Hemoglobin 10.9 g/dl (14.0-18.0); Mean Corpuscular Hemoglobin 29.1 pg (25.0-34.0); Mean Corpuscular Hgb Conc 32.6 g/dL (32.0-36.0); Mean Corpuscular Volume 89.1 fL (80.0-100.0); Nucleated RBC # (auto) 0.02 K/uL (0.00-0.12); Nucleated RBC % (auto) 0.1 %; Platelet Count 43 K/uL (130-400); RDW Coefficient of Variation 22.3 % (11.5-14.5); RDW Standard Deviation 71.4 fL (36.4-46.3); Red Blood Count 3.75 M/uL (4.70-6.10); White Blood Count 15.94 K/ul (4.8-10.8)
[2023-05-18 17:14] LABS: Basophils # (auto) 0.01 K/uL (0.00-0.20); Basophils % (auto) 0.1 %; Dohle Bodies 1+; Echinocytes 1+; Giant Platelets 1+; Hypogranular Neutrophils 1+; Immature Granulocytes # (auto) 0.14 K/uL (0.01-0.20); Immature Granulocytes % (auto) 0.9 %; Lymphocytes # (auto) 1.36 K/uL (1.20-3.40); Lymphocytes % (auto) 8.5 %; Monocytes % (auto) 44.5 %; Neutrophils # (auto) 7.33 K/uL (1.40-6.50); Platelet Estimate Decreased (Normal); Toxic Vacuolation 1+
[2023-05-18 17:21] LABS: Troponin I High Sensitivity 76.9 pg/ml (0-20)
[2023-05-18 17:30] LABS: INR 1.1 (0.9-1.1); Partial Thromboplastin Ratio 1.1; Partial Thromboplastin Time 29.9 Seconds (21.0-31.0); Prothrombin Time 12.3 Seconds (9.0-12.0)
[2023-05-18] MEDS ORDERED: VANCOMYCIN CONSULT ACTIVE PRN ×2 (17:31→20:59)
[2023-05-18] MEDS ORDERED: VANCOMYCIN HCL 1,250 MG in SODIUM CHLORIDE 0.9% 500 ML IV ONE (17:31)
[2023-05-18] MEDS ORDERED: CEFEPIME 2,000 MG/20 ML VIAL IV STA (17:31)
--- NOTE | 2023-05-18 18:33 | Electrocardiogram Report ---
Test Reason : Blood Pressure : / mmHG Vent. Rate : 089 BPM Atrial Rate : 089 BPM P-R Int : 218 ms QRS Dur : 100 ms QT Int : 406 ms P-R-T Axes : 031 004 008 degrees QTc Int : 493 ms Atrial-paced rhythm with prolonged AV conduction Prolonged QT Abnormal ECG When compared with ECG of 05-APR-2023 12:28, No significant change was found Confirmed by Joe Thakkar ([id number]) on 05/18/2023 6:33:22 PM Referred By: Confirmed By:Joe Thakkar
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
[2023-05-18] MEDS ORDERED: oxyCODONE HCL IR 5 MG TAB (IMMEDIATE RELEASE) PO STA (20:59)
[2023-05-18] MEDS ORDERED: ALBUTEROL HFA 8 GM INHALER INH PRN (20:59)
[2023-05-18] MEDS ORDERED: oxyCODONE HCL IR 5 MG TAB (IMMEDIATE RELEASE) PO PRN (20:59)
[2023-05-18 21:31] LABS: Appearance Urine Clear (Clear); Bacteria Urine Automated Negative (Negative); Bilirubin Urine Negative (Negative); Blood Urine Negative (Negative); Color Urine Yellow; Glucose Urine UA Negative (Negative); Ketones Urine Negative (Negative); Leukocyte Esterase Urine Negative (Negative); Nitrite Urine Negative (Negative); Protein Urine 1+ (Negative); RBC Urine Automated 0-4 /hpf (0-4); Specific Gravity Urine 1.013 (1.000-1.030); Urobilinogen Urine Negative (Negative); pH Urine 6.5 (4.5-7.5)
[2023-05-18] MEDS: METOPROLOL TARTRATE 50 MG TAB PO SCH (22:57)
[2023-05-18] MEDS: D5NSS + 20MEQ KCL 20 MEQ/1,000 ML BAG IV SCH (23:01)
[2023-05-19] MEDS ORDERED: oxyCODONE HCL IR 5 MG TAB (IMMEDIATE RELEASE) PO STA (01:49)
[2023-05-19] MEDS ORDERED: VANCOMYCIN HCL 750 MG in SODIUM CHLORIDE 0.9% 500 ML IV SCH (05:00)
[2023-05-19] MEDS: CEFEPIME 2,000 MG in SYRINGE 0 ML IV SCH ×2 (05:36→18:26)
[2023-05-19] MEDS: oxyCODONE HCL IR 5 MG TAB (IMMEDIATE RELEASE) PO PRN ×4 (06:20→22:49)
[2023-05-19 07:00] LABS: Anisocytosis Present; Basophils # (auto) 0.01 K/uL (0.00-0.20); Basophils % (auto) 0.1 %; Dohle Bodies 1+; Echinocytes 1+; Giant Platelets 1+; Hematocrit (blood only) 27.1 % (42.0-52.0); Hemoglobin 8.8 g/dl (14.0-18.0); Hypogranular Neutrophils 1+; Immature Granulocytes # (auto) 0.05 K/uL (0.01-0.20); Immature Granulocytes % (auto) 0.5 %; Lymphocytes # (auto) 1.07 K/uL (1.20-3.40); Mean Corpuscular Hemoglobin 28.8 pg (25.0-34.0); Mean Corpuscular Hgb Conc 32.5 g/dL (32.0-36.0); Mean Corpuscular Volume 88.6 fL (80.0-100.0); Monocytes # (auto) 5.04 K/uL (0.11-0.59); Monocytes % (auto) 47.2 %; Neutrophils % (auto) 42.2 %; Platelet Count 39 K/uL (130-400); Platelet Estimate Decreased (Normal); Polychromasia 1+; RDW Coefficient of Variation 21.8 % (11.5-14.5); RDW Standard Deviation 68.5 fL (36.4-46.3); Red Blood Count 3.06 M/uL (4.70-6.10); White Blood Count 10.67 K/ul (4.8-10.8)
[2023-05-19 07:08] LABS: Albumin Globulin Ratio 1.4 (0.9-2); Albumin Level 3.4 gm/dl (3.4-5.0); BUN Creatinine Ratio 13.6 (10-20); Bilirubin,Total 0.7 mg/dl (0.2-1.0); Calcium 8.4 mg/dl (8.6-10.3); Creatinine Clr Calc Pharmacy 49.7 ml/min; Est GFR (African American) 76.2 ml/min; Est GFR (Non-African American) 65.8 ml/min; Globulin 2.5 gm/dl (2.5-4.0); Potassium 3.7 mmol/L (3.5-5.1); Total Protein 5.9 gm/dl (6.0-8.3)
[2023-05-19] MEDS: MEGESTROL ACETATE 40 MG TAB PO SCH (08:43)
[2023-05-19] MEDS: METOPROLOL TARTRATE 50 MG TAB PO SCH ×2 (08:43→20:26)
[2023-05-19] MEDS: AMIODARONE 200 MG TAB PO SCH (08:44)
[2023-05-19] MEDS: ATORVASTATIN 40 MG TAB PO SCH (08:44)
[2023-05-19] MEDS: CEROVITE ADV FORMULA TAB PO SCH (08:44)
[2023-05-19] MEDS: ASCORBIC ACID 500 MG TAB PO SCH (08:44)
[2023-05-19] MEDS: ZINC SULFATE 220 MG CAPSULE PO SCH (08:44)
[2023-05-19] MEDS: PANTOprazole 40 MG TAB PO SCH (08:44)
[2023-05-19] MEDS: VANCOMYCIN HCL 1,250 MG in SODIUM CHLORIDE 0.9% 250 ML IV SCH (08:51)
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
[2023-05-19] MEDS ORDERED: ACETAMINOPHEN 325 MG TAB PO ONE (09:02)
[2023-05-19] MEDS ORDERED: diphenhydrAMINE Capsule 25 MG CAP PO ONE (09:02)
--- NOTE | 2023-05-19 09:50 | Pharmacy Report ---
Pharmacy PK ABX Note - Date of Service May 19, 2023 - Assessment and Plan Assessment 73 year old M receiving Vancomycin and Cefepime for treatment of right foot osteomyelitis. * Day #2 of antimicrobial therapy. * Afebrile. Leukocytosis improving (15.9k --> 10.7k). SCr 1.10 mg/dL, baseline. Procal was 0.11. * R foot and blood cultures pending. Plan Vancomycin * Loading dose: 1250 mg IV x 1 * A random level was obtained this morning secondary to recent history of YANDEL. Level was 9.3 mg/dL which is consistent with population expectation. SCr improved today so will order scheduled dosing from here. * Maintenance dose: 1250 mg IV every 24 hours * Regimen is predicted to achieve target AUC/EBONY of 400-600 mg/L.hr * Random level ordered for: 05/21/23 Cefepime * 2000 mg IV every 12 hours Pharmacy will continue to follow and will adjust dose/frequency as necessary. Thank you. Pharmacy has transitioned to AUC monitoring for vancomycin. AUC/EBONY is the preferred PK/PD target and is associated with decreased risk of nephrotoxicity compared to traditional trough targets.
[2023-05-19] MEDS ORDERED: dexAMETHasone 10 MG in SYRINGE 0 ML IV SCH (10:34)
[2023-05-19] MEDS ORDERED: DEXAMETHASONE SOD INJ 4 MG/ML VIAL IV STA (10:34)
[2023-05-19 14:21] LABS: A calco-baum cmplx NotReported Not Detected (NotDetected); Bact fragilis Not Reported Not Detected (NotDetected); C auris Not Reported Not Detected (NotDetected); Calbicans Not Reported Not Detected (NotDetected); Candida glabrata Not Reported Not Detected (NotDetected); Candida krusei Not Reported Not Detected (NotDetected); Cneoformans/gatti Not Reported Not Detected (NotDetected); Cparapsilosis Not Reported Not Detected (NotDetected); Ctropicalis Not Reported Not Detected (NotDetected); E cloacae compx Not Reported Not Detected (NotDetected); Efaecalis Not Reported Not Detected (NotDetected); Efaecium Not Reported Not Detected (NotDetected); Enterobacterales Not Reported Not Detected (NotDetected); Escherichia coli Not Reported Not Detected (NotDetected); H influenzae Not Reported Not Detected (NotDetected); K aerogenes Not Reported Not Detected (NotDetected); Koxytoca Not Reported Not Detected (NotDetected); Kpneumoniae grp Not Reported Not Detected (NotDetected); Lmonocyt Not Reported Not Detected (NotDetected); N meningitidis Not Reported Not Detected (NotDetected); P aeruginosa Not Reported Not Detected (NotDetected); Proteus spp Not Reported Not Detected (NotDetected); Salmonella spp Not Reported Not Detected (NotDetected); Smarcescens Not Reported Not Detected (NotDetected); Staph lugdunensis Not Reported Not Detected (NotDetected); Staph spp. Not Reported DETECTED (NotDetected); Staphaureus Not Reported Not Detected (NotDetected); Staphepi Not Reported DETECTED (NotDetected); Staphylococcus spp. DETECTED (NotDetected); Stenmaltophilia Not Reported Not Detected (NotDetected); Strep agal(GrpB) Not Reported Not Detected (NotDetected); Strep pneum Not Reported Not Detected (NotDetected); Strep pyog (GrpA) Not Reported Not Detected (NotDetected); Strep spp Not Reported Not Detected (NotDetected)
[2023-05-19 14:28] LABS: Staphylococcus epidermidis DETECTED (NotDetected); mecAC Resistant Gene DETECTED (NotDetected)
[2023-05-19] MEDS ORDERED: PROPOFOL IV EMULSION 10 MG/ML 20 ML VIAL IV ONE (15:19)
[2023-05-19] MEDS ORDERED: fentaNYL citrate PF 100 MCG/2 ML VIAL ONE (15:19)
[2023-05-19] MEDS ORDERED: MIDAZOLAM HCL 1 MG/ML 2ML VIAL ONE (15:19)
[2023-05-19] MEDS ORDERED: LIDOCAINE 2% 2 ML VIAL/AMP(20MG/ML) INFIL ONE (15:19)
[2023-05-19] MEDS ORDERED: BUPIVACAINE 0.5 % 5 MG/1 ML MPF 30ML VIAL ONE (15:38)
[2023-05-19 16:09] LABS: Hematocrit (blood only) 31.1 % (42.0-52.0); Hemoglobin 10.2 g/dl (14.0-18.0); Mean Corpuscular Hemoglobin 28.7 pg (25.0-34.0); Mean Corpuscular Hgb Conc 32.8 g/dL (32.0-36.0); Mean Corpuscular Volume 87.6 fL (80.0-100.0); Platelet Count 61 K/uL (130-400); RDW Coefficient of Variation 21.6 % (11.5-14.5); RDW Standard Deviation 68.7 fL (36.4-46.3); Red Blood Count 3.55 M/uL (4.70-6.10); White Blood Count 11.77 K/ul (4.8-10.8)
[2023-05-19 16:10] LABS: Anisocytosis Present; Basophils # (auto) 0.01 K/uL (0.00-0.20); Basophils % (auto) 0.1 %; Echinocytes 2+; Giant Platelets 1+; Immature Granulocytes # (auto) 0.09 K/uL (0.01-0.20); Immature Granulocytes % (auto) 0.8 %; Lymphocytes # (auto) 0.52 K/uL (1.20-3.40); Lymphocytes % (auto) 4.4 %; Monocytes # (auto) 0.71 K/uL (0.11-0.59); Neutrophils # (auto) 10.44 K/uL (1.40-6.50); Neutrophils % (auto) 88.7 %; Platelet Estimate Decreased (Normal)
--- NOTE | 2023-05-19 16:22 | History & Physical Bridge Note ---
Date of Service May 19, 2023 History & Physical Bridge Note I have examined the patient, reviewed the History & Physical and in the interval since the performance of the History & Physical I have noted the following changes of clinical significance: no changes noted
[2023-05-19] MEDS ORDERED: KETAMINE 50 MG/5 ML SYRINGE ONE (16:36)
--- NOTE | 2023-05-19 16:37 | Hospitalist Progress Note ---
Date of Service May 19, 2023 Assessment & Plan (1) Heel ulcer: (2) Osteomyelitis: Plan: Infected foot ulcers, bilateral Osteomyelitis, Right Heel Peripheral Arterial Disease Pressure ulcer of right heel, stage __3_, and left heel, stage_2__, POA Blood culture: Gram-positive cocci clusters in 1 bottle Wound culture: Pending Podiatry service consulted, plan for debridement with bone biopsy this afternoon Infectious disease consulted, awaiting recommendation Elevated Troponin no cardiac symptoms EKG: no acute ischemia check 2nd trop: 59 No cardiac symptoms Diffuse B Cell Lymphoma of head/neck:s/p 1 cycle of RCEOP (11/18/22 - 11/21/22) Chronic myelomonocytic leukemia: Chronic Thrombocytopenia: Transfusion reaction/to platelets transfusion: Following with Dr. Rojas - randolph on hold for now and patient just began receiving radiation to neck Soft tissue neck CT with necrotic lymph nodes are further decreased in size from prior exam Continue allopurinol for tumor lysis syndrome prophylaxis Paroxysmal A fib Following with cardiology. Continue amiodarone 200mg daily Chronic thrombocytopenia, h/o ITP 05/19 Thrombocytopenia No active bleeding 1 unit platelet pheresis ordered to maintain platelets above 50,000 in light of planned surgical procedure Severe protein calorie malnutrition: Significant weight loss previously but appetite improving on Megace PAD: c/w statin. ABIs done on 03/17 showed R 0.87 and L 0.85 at rest concerning for occlusive disease to b/l SFA and tibial artery along with L iliac disease Arterial Doppler:Moderate atherosclerotic plaque within the bilateral lower extremities. Suspected occlusion of the distal left posterior tibial artery, otherwise patent vessels. Monophasic flow within the bilateral calf vessels H/o Dysphagia Continue minced and moist, easy to chew diet with thin liquids SSS S/P PPM in 2019 COPD: c/w home inhalers. no signs of exacerbation plan of care discussed with patient and his Nishi at the bedside in detail and at length all questions answered they are understanding, agreeable, comfortable with the plan of care Admission and Anticipated Discharge Date Admission Date: May 18, 2023 Subjective Follow-up for right foot osteomyelitis, etc. Seen resting in bed, comfortable, not in distress Tired Pain on bilateral feet adequately controlled no chest pain, dyspnea, palpitations, dizziness No other symptom Review of Systems Review of Systems: all noted and negative except for above Physical Exam Physical Exam: General- oriented x 3, not in distress, speaks in sentences with no effort or accessory muscle use Eyes- anicteric Neck- no JVD Lungs- clear breath sounds bilaterally, no rales/wheezes Heart- normal rate, regular rhythm; no murmurs Abdomen- normal bowel sounds, nondistended, soft, nontender Extremities- no pretibial edema, no calf tenderness Bilateral feet: Mild edema right foot, dressing in place Neuro- alert, oriented x 3; no gross focal neurologic deficits Skin- warm & dry Results & Data Results & Data Vital Signs (Past 12 Hours) Vital Signs Temp Pulse Pulse Resp BP BP Pulse Ox 05/19/23 15:45 36.8 C 78 22 135/76 94 05/19/23 14:41 05/19/23 14:40 36.9 C 68 17 130/68 93 05/19/23 13:43 36.8 C 72 17 105/50 L 93 05/19/23 12:40 36.7 C 72 17 117/69 93 05/19/23 12:10 36.9 C 72 16 95/52 L 93 05/19/23 11:55 36.9 C 74 16 109/63 92 05/19/23 11:36 36.9 C 65 16 119/58 L 94 05/19/23 10:29 36.9 C 74 16 115/66 94 05/19/23 10:04 73 05/19/23 09:03 36.7 C 82 17 117/74 92 O2 Del Method 05/19/23 15:45 Room Air 05/19/23 14:41 Room Air 05/19/23 14:40 Room Air 05/19/23 13:43 05/19/23 12:40 05/19/23 12:10 05/19/23 11:55 05/19/23 11:36 05/19/23 10:29 05/19/23 10:04 05/19/23 09:03 Room Air all noted and reviewed including below
--- NOTE | 2023-05-19 17:24 | Post Operative Brief Note ---
Immediate Post Op Note v1 Date of Surgery May 19, 2023 Pre & Post Diagnosis Operation Date: 05/19/23 09:50 Pre-Op Diagnosis: Right Foot Osteomylitis Post-Op Diagnosis: Right Foot Osteomylitis I identified the patient and participated in the time-out.: Yes Procedure Operation Date: 05/19/23 09:50 Actual Procedures p Right and Left Foot Wound Debridement, Right Foot Excision of Bone, Right Foot Application of Wound Vac(Right) - Rajinder Mccormick DPM, MS Surgeon Rajinder Mccormick DPM, MS [employer] Estimated Blood Loss 0 Findings Consistent with Post-Op Diagnosis Consistent with pre operative diagnosis Specimens Wound swab right heel Right calcaneus bone Microbiology Right calcaneus bone pathology Right calcaneus bone clear margin pathology
[2023-05-19] MEDS ORDERED: fentaNYL citrate PF 100 MCG/2 ML VIAL IV PRN (17:25)
[2023-05-19] MEDS ORDERED: ONDANSETRON INJ 2 MG/ML 2 ML VIAL IV PRN (17:25)
[2023-05-19] MEDS ORDERED: ATROPINE SULFATE 0.1 MG/ML 10ML SYR IV PRN (17:25)
[2023-05-19] MEDS ORDERED: ePHEDrine sulfate 50 MG/ML AMP IV PRN (17:25)
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
--- NOTE | 2023-05-19 17:35 | Anesthesiology Progress Note ---
Date of Service May 19, 2023 Anesthesia Post Procedure Vital Signs Vital Signs: Temp Pulse Pulse Resp BP BP BP 05/19/23 16:34 74 05/19/23 15:45 36.8 C 78 22 135/76 05/19/23 14:41 05/19/23 14:40 36.9 C 68 17 130/68 05/19/23 13:43 36.8 C 72 17 105/50 L 05/19/23 12:40 36.7 C 72 17 117/69 05/19/23 12:10 36.9 C 72 16 95/52 L 05/19/23 11:55 36.9 C 74 16 109/63 05/19/23 11:36 36.9 C 65 16 119/58 L 05/19/23 10:29 36.9 C 74 16 115/66 05/19/23 10:04 73 05/19/23 09:03 36.7 C 82 17 117/74 05/19/23 03:18 36.9 C 76 16 118/60 05/19/23 00:38 80 05/18/23 23:26 36.4 C L 80 18 122/68 05/18/23 21:00 05/18/23 21:00 36.8 C 82 16 132/81 05/18/23 20:30 77 25 H 136/78 05/18/23 20:00 83 27 H 05/18/23 20:00 121/69 05/18/23 19:30 78 27 H 05/18/23 19:30 120/73 05/18/23 19:00 79 28 H 05/18/23 19:00 117/68 05/18/23 18:54 86 26 H 05/18/23 18:54 126/70 05/18/23 18:30 24 05/18/23 18:03 116/75 05/18/23 18:03 83 25 H 05/18/23 18:00 79 22 05/18/23 20:57 82 19 116/75 05/18/23 19:41 78 05/18/23 18:03 82 19 116/75 Pulse Ox O2 Del Method 05/19/23 16:34 05/19/23 15:45 94 Room Air 05/19/23 14:41 Room Air 05/19/23 14:40 93 Room Air 05/19/23 13:43 93 05/19/23 12:40 93 05/19/23 12:10 93 05/19/23 11:55 92 05/19/23 11:36 94 05/19/23 10:29 94 05/19/23 10:04 05/19/23 09:03 92 Room Air 05/19/23 03:18 90 Room Air 05/19/23 00:38 05/18/23 23:26 92 Room Air 05/18/23 21:00 Room Air 05/18/23 21:00 91 Room Air 05/18/23 20:30 98 Room Air 05/18/23 20:00 05/18/23 20:00 05/18/23 19:30 05/18/23 19:30 05/18/23 19:00 05/18/23 19:00 05/18/23 18:54 05/18/23 18:54 05/18/23 18:30 05/18/23 18:03 05/18/23 18:03 05/18/23 18:00 05/18/23 20:57 95 Room Air 05/18/23 19:41 05/18/23 18:03 95 Room Air Pain Intensity Right Foot: Pain Intensity: 9 Transfer of Care Handoff Completed per policy Notes Mental Status: alert / awake / arousable Patient Amnestic to Procedure: Yes Nausea / Vomiting: adequately controlled Pain: adequately controlled Airway Patency, RR, SpO2: stable & adequate BP & HR: stable & adequate Hydration State: stable & adequate Anesthetic Complications: no major complications apparent
[2023-05-19] MEDS: D5NSS + 20MEQ KCL 20 MEQ/1,000 ML BAG IV SCH (18:26)
--- NOTE | 2023-05-19 21:41 | Operative Report ---
Post Operative Report Pre & Post Diagnosis Operation Date: 05/19/23 09:50 Pre-Op Diagnosis: Right Foot Osteomylitis Post-Op Diagnosis: Right Foot Osteomylitis I identified the patient and participated in the time-out.: Yes Procedure Operation Date: 05/19/23 09:50 Actual Procedures p Right and Left Foot Wound Debridement, Right Foot Excision of Bone, Right Foot Application of Wound Vac(Right) - Rajinder Mccormick DPM, MS Surgeon Rajinder Mccormick DPM, MS Milk Drier NOne Estimated Blood Loss 0 Findings Consistent with Post-Op Diagnosis consistent with pre operative diagnosis Specimens 1.) right foot deep swab 2.) right foot calcaneus bone - microbiology 3.) right foot calcaneus bone - pathology 4.) right foot calcaneus bone clear margins - pathology Description of Procedure History of present illness: Patient is a 73 year old male who has history of Right and left heel wounds. Patient recent right foot x-rays show calcaneus erosion over wound consistent with osteomyelitis. Patient is seen today for Right and left foot wound debridement, right calcaneus partial excision, and right foot application of w ound vac. I have reviewed the procedure and post operative recovery with Patient in detail. All questions answered. All potential risks, benefits, complications, alternatives, rehab, potential for incomplete relief of symptoms, need for further surgery, DVT, PE, , persistent pain, swelling, scarring, weakness, neurovascular, wound complications and potential for amputations were discussed with patient. Unwanted outcomes such as, but not limited to were reviewed including under correction, overcorrection, return of deformity, infection. All questions were answered. Patient has decided to proceed with procedure as indicated. Preoperative diagnosis:1.) Right heel ulcer 2.) Left heel ulcer 3.) Right calcaneus Osteomyelitis Postoperative diagnosis: Same Name of operation: 1.) Left heel debridement 2.) Right heel debridement 3.) Right partial calcaneus partial excision 4.) Application of wound vac left foot Surgeon: Dr. Mccormick Milk Drier: None Anesthesia: Monitored anesthesia care Estimated blood loss: Minimal Procedure in detail: Under mild sedation the patient was brought in the operating room placed on the operating table in supine position. Patient was then converted to prone position. A Pneumatic calf tourniquet was then placed about the patient's right calf. Following sedation, local anesthesia was obtained about the right ankle utilizing 20 cc of a 1:1 mixture of 1% lidocaine. The right and left foot and ankle were then prepped, scrubbed, and draped, in the usual aseptic manner. At this time attention to the retrocalcaneal heel showed a full thickness ulcer measuring roughly 2 x 3 x 0.2 cm. Utilizing a sharp sterile #15 blade the wound was sharply debrided into subcutaneous tissue. Hemostasis was achieved with pressure. Post wound debridement measurement roughly 2 x 3 x 0.2 cm. An Esmarch bandage utilized examining the patient's right foot and ankle and the pneumatic calf tourniquet was inflated. Attention was directed to the distal aspect of the right heel where a non healing Diabetic full thickness ulcer was located. The wound measured 4 x 5 x 0.5 cm. Thin fibrous granulation tissue was present over exposed bone. Next, utilizing a sharp, sterile, 15 blade the thin layer of granulation tissue was excised over the retrocalcaneal aspect of the right heel. Next utilizing an oscillating bone saw the exposed calcaneus was resected. The bone was removed and placed on the back table. The bone was labeled right calcaneus. A portion of the bone was sent to Pathology and a portion was sent to microbiology for culture and sensitives. Deep cultures of the wound were then taken. Next utilizing an oscillating bone saw a second portion of the right calcaneus was resected. The bone was removed and placed on the back table and labeled clear margins. This was then also sent to pathology. At this time instrumentation was switched and top gloves were removed. 1 Liter of lactate ringer was perfused over low flow over the incision site. Next negative pressure therapy was applied with wound vac to wound of the right heel. The vac was placed on 125mmHg continuous. The remaining wounds were dressed consisting of 4 x 4's Peter, Kerlix, ABD, and Michael. The pneumatic calf tourniquet was deflated and a prompt hyperemic response was noted to all digits of the right foot. The Patient tolerated the procedure and anesthesia well. The Patient was transferred to recovery room with vital signs stable and vascular status intact all toes of the right foot. Following a period of Postoperative monitoring the Patient will be readmitted to the floor resuming all preoperative orders. I attest to the content of the Intraoperative Record and any orders documented therein. Any exceptions are noted below.
[2023-05-20] MEDS: oxyCODONE HCL IR 5 MG TAB (IMMEDIATE RELEASE) PO PRN ×4 (04:19→20:44)
[2023-05-20] MEDS: CEFEPIME 2,000 MG in SYRINGE 0 ML IV SCH ×2 (05:46→17:51)
[2023-05-20 06:48] LABS: Hypogranular Neutrophils 1+
[2023-05-20 07:57] LABS: Anisocytosis Present; Basophils # (auto) 0.01 K/uL (0.00-0.20); Basophils % (auto) 0.1 %; Echinocytes 1+; Hematocrit (blood only) 27.6 % (42.0-52.0); Hemoglobin 8.8 g/dl (14.0-18.0); Immature Granulocytes # (auto) 0.08 K/uL (0.01-0.20); Immature Granulocytes % (auto) 0.7 %; Lymphocytes # (auto) 0.74 K/uL (1.20-3.40); Lymphocytes % (auto) 6.7 %; Mean Corpuscular Hemoglobin 28.5 pg (25.0-34.0); Mean Corpuscular Hgb Conc 31.9 g/dL (32.0-36.0); Mean Corpuscular Volume 89.3 fL (80.0-100.0); Monocytes # (auto) 1.42 K/uL (0.11-0.59); Monocytes % (auto) 12.8 %; Neutrophils # (auto) 8.87 K/uL (1.40-6.50); Neutrophils % (auto) 79.7 %; Nucleated RBC # (auto) 0.03 K/uL (0.00-0.12); Nucleated RBC % (auto) 0.3 %; Platelet Count 64 K/uL (130-400); RDW Coefficient of Variation 21.9 % (11.5-14.5); RDW Standard Deviation 70.4 fL (36.4-46.3); Red Blood Count 3.09 M/uL (4.70-6.10); White Blood Count 11.12 K/ul (4.8-10.8)
[2023-05-20 08:03] LABS: Albumin Globulin Ratio 1.3 (0.9-2); Albumin Level 3.5 gm/dl (3.4-5.0); BUN Creatinine Ratio 17.2 (10-20); Bilirubin,Total 0.7 mg/dl (0.2-1.0); Calcium 8.5 mg/dl (8.6-10.3); Creatinine Clr Calc Pharmacy 45.2 ml/min; Est GFR (African American) 67.3 ml/min; Globulin 2.7 gm/dl (2.5-4.0); Potassium 4.1 mmol/L (3.5-5.1); Total Protein 6.2 gm/dl (6.0-8.3)
[2023-05-20] MEDS: VANCOMYCIN HCL 1,250 MG in SODIUM CHLORIDE 0.9% 250 ML IV SCH (09:02)
[2023-05-20] MEDS: D5NSS + 20MEQ KCL 20 MEQ/1,000 ML BAG IV SCH (09:02)
[2023-05-20] MEDS: METOPROLOL TARTRATE 50 MG TAB PO SCH ×2 (09:03→20:42)
[2023-05-20] MEDS: PANTOprazole 40 MG TAB PO SCH (09:04)
[2023-05-20] MEDS: AMIODARONE 200 MG TAB PO SCH (09:04)
[2023-05-20] MEDS: ADVANCED PROBIOTIC 1250 MG CAPSULE PO SCH (09:04)
[2023-05-20] MEDS: ATORVASTATIN 40 MG TAB PO SCH (09:04)
[2023-05-20] MEDS: MEGESTROL ACETATE 40 MG TAB PO SCH (09:04)
[2023-05-20] MEDS: ZINC SULFATE 220 MG CAPSULE PO SCH (09:04)
[2023-05-20] MEDS: CEROVITE ADV FORMULA TAB PO SCH (09:04)
[2023-05-20] MEDS: ASCORBIC ACID 500 MG TAB PO SCH (09:04)
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
[2023-05-20] MEDS ORDERED: MoRPHine SULFATE 4 MG/ML 1 ML CARP\\VIAL IV STA (10:00)
[2023-05-20] MEDS ORDERED: HYDROmorphone INJ 0.5 MG/0.5 ML SYR IV STA (10:46)
[2023-05-20] MEDS: HYDROmorphone INJ 0.5 MG/0.5 ML SYR IV PRN ×2 (16:55→23:35)
--- NOTE | 2023-05-20 19:26 | Hospitalist Progress Note ---
Date of Service May 20, 2023 Assessment & Plan (1) Heel ulcer: (2) Osteomyelitis: Plan: Infected foot ulcers, bilateral Osteomyelitis, Right Heel Peripheral Arterial Disease Pressure ulcer of right heel, stage __3_, and left heel, stage_2__, POA Blood culture: Gram-positive cocci clusters in 1 bottle Wound culture: Pending Podiatry service consulted: 05/19 Right and Left Foot Wound Debridement, Right Foot Excision of Bone, Right Foot Application of Wound Vac(Right) - Rajinder Mccormick DPM, MS Infectious disease consulted: continue Vanco + Cefepime ff up cultures Elevated Troponin no cardiac symptoms EKG: no acute ischemia check 2nd trop: 59 No cardiac symptoms Diffuse B Cell Lymphoma of head/neck:s/p 1 cycle of RCEOP (11/18/22 - 11/21/22) Chronic myelomonocytic leukemia: Chronic Thrombocytopenia: Transfusion reaction/to platelets transfusion: Following with Dr. Rojas - randolph on hold for now and patient just began receiv ing radiation to neck Soft tissue neck CT with necrotic lymph nodes are further decreased in size from prior exam Continue allopurinol for tumor lysis syndrome prophylaxis Paroxysmal A fib Following with cardiology. Continue amiodarone 200mg daily Chronic thrombocytopenia, h/o ITP 05/20 Thrombocytopenia No active bleeding 1 unit platelet pheresis ordered to maintain platelets above 50,000 in light of planned surgical procedure Plt 64 Severe protein calorie malnutrition: Significant weight loss previously but appetite improving on Megace PAD: c/w statin. ABIs done on 03/17 showed R 0.87 and L 0.85 at rest concerning for occlusive disease to b/l SFA and tibial artery along with L iliac disease Arterial Doppler:Moderate atherosclerotic plaque within the bilateral lower extremities. Suspected occlusion of the distal left posterior tibial artery, otherwise patent vessels. Monophasic flow within the bilateral calf vessels H/o Dysphagia Continue minced and moist, easy to chew diet with thin liquids SSS S/P PPM in 2019 COPD: c/w home inhalers. no signs of exacerbation plan of care discussed with patient and his Nishi at the bedside in detail and at length all questions answered they are understanding, agreeable, comfortable with the plan of care Admission and Anticipated Discharge Date Admission Date: May 18, 2023 Subjective ff up for R foot OM, etc seen resting in bed, comfortable having R foot pain earlier, improving no chest pain, dyspnea, palpitations, dizziness no fever/chills Review of Systems Review of Systems: all noted and negative except for above Physical Exam Physical Exam: General- oriented x 3, not in distress, speaks in sentences with no effort or accessory muscle use Eyes- anicteric Neck- no JVD Lungs- clear breath sounds bilaterally, no rales/wheezes Heart- normal rate, regular rhythm; no murmurs Abdomen- normal bowel sounds, nondistended, soft, nontender Extremities- no pretibial edema, no calf tenderness R foot: dressing in place, no bleeding L foot: heel ulcer, no active drainage Neuro- alert, oriented x 3; no gross focal neurologic deficits Skin- warm & dry Results & Data Results & Data Vital Signs (Past 12 Hours) Vital Signs Temp Pulse Pulse Resp BP Pulse Ox O2 Del Method 05/20/23 16:51 36.8 C 75 16 128/78 95 Room Air 05/20/23 15:35 74 05/20/23 08:00 77 05/20/23 13:04 Room Air 05/20/23 12:52 37.0 C 77 17 135/71 91 Room Air 05/20/23 08:43 37.1 C 70 17 140/73 95 Room Air all noted and reviewed including below
--- NOTE | 2023-05-20 22:39 | Orthopedic Progress Note ---
Date of Service May 20, 2023 Assessment & Plan (1) Osteomyelitis: Plan: Patient seen, evaluated, and treated. Patient status post day #1 left partial excision of calcaneus. Wound Vac removed and dressing applied. Dressing clean dry, intact. Awaiting bone culture and pathology report. (2) Heel ulcer: Admission and Anticipated Discharge Date Admission Date: May 18, 2023 Subjective Patient status post day #1 left partial excision of calcaneus. He is resting comfortably. Patient's is present. Wound Vac has been removed and dressing intact. Physical Exam Constitutional: cooperative and comfortable Respiratory: normal respiratory effort Musculoskeletal: Extremities: extremities normal to inspection Skin: + ulcer (Right full thickness ulcer retro calcaneal heel) and + eschar (Left heel) Neurologic: moves all extremities (Absent protective sensation) Psychiatric: Orientation: alert and oriented x 3 Results & Data Vital Signs (Past 12 Hours) Vital Signs Temp Pulse Pulse Pulse Resp BP Pulse Ox 05/20/23 19:00 36.9 C 73 20 148/74 H 92 05/20/23 16:51 36.8 C 75 16 128/78 95 05/20/23 15:35 74 05/20/23 13:04 05/20/23 12:52 37.0 C 77 17 135/71 91 O2 Del Method 05/20/23 19:00 Room Air 05/20/23 16:51 Room Air 05/20/23 15:35 05/20/23 13:04 Room Air 05/20/23 12:52 Room Air
[2023-05-21] MEDS: CEFEPIME 2,000 MG in SYRINGE 0 ML IV SCH ×2 (04:36→18:06)
[2023-05-21] MEDS: oxyCODONE HCL IR 5 MG TAB (IMMEDIATE RELEASE) PO PRN ×4 (04:36→18:36)
[2023-05-21 06:48] LABS: Albumin Globulin Ratio 1.3 (0.9-2); Albumin Level 3.6 gm/dl (3.4-5.0); BUN Creatinine Ratio 17.4 (10-20); Bilirubin,Total 0.6 mg/dl (0.2-1.0); Calcium 8.9 mg/dl (8.6-10.3); Creatinine Clr Calc Pharmacy 50.5 ml/min; Est GFR (African American) 77.1 ml/min; Est GFR (Non-African American) 66.5 ml/min; Globulin 2.7 gm/dl (2.5-4.0); Potassium 4.3 mmol/L (3.5-5.1); Total Protein 6.3 gm/dl (6.0-8.3)
[2023-05-21] MEDS: HYDROmorphone INJ 0.5 MG/0.5 ML SYR IV PRN ×3 (08:01→20:24)
[2023-05-21] MEDS: VANCOMYCIN HCL 1,250 MG in SODIUM CHLORIDE 0.9% 250 ML IV SCH (08:04)
[2023-05-21] MEDS: ATORVASTATIN 40 MG TAB PO SCH (09:08)
[2023-05-21] MEDS: ASCORBIC ACID 500 MG TAB PO SCH (09:09)
[2023-05-21] MEDS: METOPROLOL TARTRATE 50 MG TAB PO SCH ×2 (09:09→20:25)
[2023-05-21] MEDS: MEGESTROL ACETATE 40 MG TAB PO SCH (09:09)
[2023-05-21] MEDS: AMIODARONE 200 MG TAB PO SCH (09:10)
[2023-05-21] MEDS: CEROVITE ADV FORMULA TAB PO SCH (09:10)
[2023-05-21] MEDS: ZINC SULFATE 220 MG CAPSULE PO SCH (09:10)
[2023-05-21] MEDS: PANTOprazole 40 MG TAB PO SCH (09:11)
[2023-05-21] MEDS: ADVANCED PROBIOTIC 1250 MG CAPSULE PO SCH (09:11)
[2023-05-21 09:25] LABS: Hematocrit (blood only) 27.9 % (42.0-52.0); Hemoglobin 8.9 g/dl (14.0-18.0); Mean Corpuscular Hemoglobin 28.3 pg (25.0-34.0); Mean Corpuscular Hgb Conc 31.9 g/dL (32.0-36.0); Mean Corpuscular Volume 88.6 fL (80.0-100.0); Nucleated RBC # (auto) 0.04 K/uL (0.00-0.12); Nucleated RBC % (auto) 0.3 %; Platelet Count 91 K/uL (130-400); RDW Coefficient of Variation 21.7 % (11.5-14.5); RDW Standard Deviation 69.7 fL (36.4-46.3); Red Blood Count 3.15 M/uL (4.70-6.10)
--- NOTE | 2023-05-21 10:57 | Pharmacy Report ---
Pharmacy PK ABX Note - Date of Service May 21, 2023 - Assessment and Plan Assessment 73 year old M receiving Vancomycin and Cefepime for treatment of right foot osteomyelitis. Vancomycin * Maintenance dose: 1250 mg IV every 24 hours * Regimen is predicted to achieve target AUC/EBONY of 400-600 mg/L.hr, but AUC of 412 is in the lower end of goal range and dosing may be subtherapeutic at this particular moment due to being slightly prior to steady state Plan * Increase vancomycin to 1500 mg IV q24h * Trough prior to 3rd dose on 8 AM Pharmacy will continue to follow and will adjust dose/frequency as necessary. Thank you. Pharmacy has transitioned to AUC monitoring for vancomycin. AUC/EBONY is the preferred PK/PD target and is associated with decreased risk of nephrotoxicity compared to traditional trough targets.
[2023-05-21] MEDS: KETOROLAC TROMETHAMINE 15 MG/ML VIAL IV PRN ×2 (12:17→18:17)
[2023-05-21 12:21] LABS: ALC (manual) 2.61 K/uL (1.2-3.4); ANC (manual) 9.43 K/uL (1.4-6.5); Anisocytosis Present; Blast # (manual) 0.15 K/uL (0-0); Blast Cells % (manual) 1 %; Lymphocytes # (manual) 2.61 K/uL (1.2-3.4); Lymphocytes % (manual) 18 %; Monocytes # (manual) 2.32 K/uL (0.11-0.59); Monocytes % (manual) 16 %; Neutrophils # (manual) 9.42 K/uL (1.40-6.50); Neutrophils % (manual) 65 %; Polychromasia 2+; Tear Drop Cells 1+
--- NOTE | 2023-05-21 15:40 | Hospitalist Progress Note ---
Date of Service May 21, 2023 Assessment & Plan (1) Heel ulcer: (2) Osteomyelitis: Plan: Infected foot ulcers, bilateral Osteomyelitis, Right Heel Peripheral Arterial Disease Pressure ulcer of right heel, stage __3_, and left heel, stage_2__, POA Blood culture: Coag negative staph not lugdunensis Repeat blood culture: Negative Wound culture: Corynebacterium species Podiatry service consulted: 05/19 Right and Left Foot Wound Debridement, Right Foot Excision of Bone, Right Foot Application of Wound Vac(Right) - Rajinder Mccormick DPM, MS Infectious disease consulted: continue Vanco + Cefepime ff up final results of cultures, antibiotic regimen at home to be determined based on results Elevated Troponin no cardiac symptoms EKG: no acute ischemia check 2nd trop: 59 No cardiac symptoms Diffuse B Cell Lymphoma of head/neck:s/p 1 cycle of RCEOP (11/18/22 - 11/21/22) Chronic myelomonocytic leukemia: Chronic Thrombocytopenia: Transfusion reaction/to platelets transfusion: Following with Dr. Rojas - randolph on hold for now and patient just began receiving radiation to neck Soft tissue neck CT with necrotic lymph nodes are further decreased in size from prior exam Continue allopurinol for tumor lysis syndrome prophylaxis Paroxysmal A fib Following with cardiology. Continue amiodarone 200mg daily Chronic thrombocytopenia, h/o ITP 05/21 Thrombocytopenia No active bleeding 1 unit platelet pheresis ordered to maintain platelets above 50,000 in light of planned surgical procedure Plt 91 Severe protein calorie malnutrition: Significant weight loss previously but appetite improving on Megace PAD: c/w statin. ABIs done on 03/17 showed R 0.87 and L 0.85 at rest concerning for occlusive disease to b/l SFA and tibial artery along with L iliac disease Arterial Doppler:Moderate atherosclerotic plaque within the bilateral lower extremities. Suspected occlusion of the distal left posterior tibial artery, otherwise patent vessels. Monophasic flow within the bilateral calf vessels H/o Dysphagia Continue minced and moist, easy to chew diet with thin liquids SSS S/P PPM in 2019 COPD: c/w home inhalers. no signs of exacerbation plan of care discussed with patient in detail all questions answered he is understanding, agreeable, comfortable with the plan of care Admission and Anticipated Discharge Date Admission Date: May 18, 2023 Subjective Follow-up for right foot osteomyelitis, etc. Seen resting in bed, comfortable, not in distress In good spirits States he feels fine overall Some pain on the right heel No other new symptom Review of Systems Review of Systems: all noted and negative except for above Physical Exam Physical Exam: General- oriented x 3, not in distress, speaks in sentences with no effort or accessory muscle use Eyes- anicteric Neck- no JVD Lungs- clear breath sounds, no crackles or wheezing bilaterally Heart- normal rate, regular rhythm; no murmurs Abdomen- normal bowel sounds, nondistended, soft, nontender Extremities- no pretibial edema, no calf tenderness Right foot: Dressing in place, no bleeding or discharge Neuro- alert, oriented x 3; no gross focal neurologic deficits Skin- warm & dry Results & Data Results & Data Vital Signs (Past 12 Hours) Vital Signs Temp Pulse Pulse Resp BP BP Pulse Ox 05/21/23 15:02 36.5 C 68 16 118/66 92 05/21/23 14:12 71 05/21/23 11:44 36.6 C 72 15 128/69 93 05/21/23 07:55 05/21/23 06:00 67 05/21/23 07:51 36.5 C 75 17 145/79 H 93 05/21/23 04:00 36.7 C 72 18 145/73 H 95 O2 Del Method 05/21/23 15:02 Room Air 05/21/23 14:12 05/21/23 11:44 Room Air 05/21/23 07:55 Room Air 05/21/23 06:00 05/21/23 07:51 Room Air 05/21/23 04:00 Room Air all noted and reviewed including below
--- NOTE | 2023-05-21 18:06 | Orthopedic Progress Note ---
Date of Service May 21, 2023 Assessment & Plan (1) Osteomyelitis: Plan: Patient seen, evaluated, and treated. Patient status post day #2 left partial excision of calcaneus. Wound Vac removed applied. Waffle boots applied. Time spent on education for need of off loading to wounds. Awaiting bone culture and pathology report. (2) Heel ulcer: Admission and Anticipated Discharge Date Admission Date: May 18, 2023 Subjective Patient seen at bedside resting comfortably. Patient is status post day #2 partial excision of right calcaneus. Patient's is present. He is sitting up with heel wounds down of bed with no off loading present. Review of Systems Review of Systems: All systems reviewed & are unremarkable except as noted in Subjective Physical Exam Constitutional: cooperative and comfortable Respiratory: normal respiratory effort Musculoskeletal: Extremities: extremities normal to inspection Skin: + ulcer (Right full thickness ulcer retro calcaneal heel) and + eschar (Left heel) Neurologic: moves all extremities (Absent protective sensation) Psychiatric: Orientation: alert and oriented x 3 Results & Data Vital Signs (Past 12 Hours) Vital Signs Temp Pulse Pulse Resp BP BP Pulse Ox 05/21/23 15:02 36.5 C 68 16 118/66 92 05/21/23 14:12 71 05/21/23 11:44 36.6 C 72 15 128/69 93 05/21/23 07:55 05/21/23 07:51 36.5 C 75 17 145/79 H 93 O2 Del Method 05/21/23 15:02 Room Air 05/21/23 14:12 05/21/23 11:44 Room Air 05/21/23 07:55 Room Air 05/21/23 07:51 Room Air
[2023-05-22] MEDS: oxyCODONE HCL IR 5 MG TAB (IMMEDIATE RELEASE) PO PRN ×5 (00:37→21:46)
[2023-05-22] MEDS: HYDROmorphone INJ 0.5 MG/0.5 ML SYR IV PRN ×4 (02:59→23:43)
[2023-05-22 06:18] LABS: Albumin Globulin Ratio 1.4 (0.9-2); Albumin Level 3.4 gm/dl (3.4-5.0); BUN Creatinine Ratio 23.8 (10-20); Bilirubin,Total 0.6 mg/dl (0.2-1.0); Calcium 8.7 mg/dl (8.6-10.3); Creatinine Clr Calc Pharmacy 43.7 ml/min; Est GFR (African American) 64.7 ml/min; Est GFR (Non-African American) 55.8 ml/min; Globulin 2.4 gm/dl (2.5-4.0); Potassium 4.4 mmol/L (3.5-5.1); Total Protein 5.8 gm/dl (6.0-8.3)
[2023-05-22] MEDS: CEFEPIME 2,000 MG in SYRINGE 0 ML IV SCH ×2 (06:42→17:16)
[2023-05-22] MEDS: VANCOMYCIN HCL 1,500 MG in SODIUM CHLORIDE 0.9% 500 ML IV SCH (06:42)
[2023-05-22] MEDS: KETOROLAC TROMETHAMINE 15 MG/ML VIAL IV PRN ×2 (07:57→20:23)
[2023-05-22] MEDS: AMIODARONE 200 MG TAB PO SCH (09:08)
[2023-05-22] MEDS: ATORVASTATIN 40 MG TAB PO SCH (09:08)
[2023-05-22] MEDS: ASCORBIC ACID 500 MG TAB PO SCH (09:08)
[2023-05-22] MEDS: ZINC SULFATE 220 MG CAPSULE PO SCH (09:08)
[2023-05-22] MEDS: CEROVITE ADV FORMULA TAB PO SCH (09:08)
[2023-05-22] MEDS: PANTOprazole 40 MG TAB PO SCH (09:08)
[2023-05-22] MEDS: ADVANCED PROBIOTIC 1250 MG CAPSULE PO SCH (09:08)
[2023-05-22] MEDS: MEGESTROL ACETATE 40 MG TAB PO SCH (09:08)
[2023-05-22] MEDS: METOPROLOL TARTRATE 50 MG TAB PO SCH ×2 (09:08→20:22)
--- NOTE | 2023-05-22 10:57 | Hospitalist Progress Note ---
Date of Service May 22, 2023 Assessment & Plan (1) Heel ulcer: (2) Osteomyelitis: Plan: Infected foot ulcers, bilateral Osteomyelitis, Right Heel Peripheral Arterial Disease Pressure ulcer of right heel, stage 3, and left heel, stage 2, POA Blood culture: Coag negative staph not lugdunensis Repeat blood culture: Negative Wound cultures: Corynebacterium species Finegomisaelia Podiatry service consulted: 05/19 Right and Left Foot Wound Debridement, Right Foot Excision of Bone, Right Foot Application of Wound Vac(Right) - Rajinder Mccormick DPM, MS Infectious disease consulted: continue Vanco + Cefepime + Flagyl ff up final results of cultures, antibiotic regimen at home to be determined based on results Will discuss with ID Elevated Troponin no cardiac symptoms EKG: no acute ischemia 2nd trop: 59 No cardiac symptoms 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 Rojas - randolph on hold for now and patient just began receiving radiation to neck Soft tissue neck CT with necrotic lymph nodes are further decreased in size from prior exam Continue allopurinol for tumor lysis syndrome prophylaxis Needs pretreatment with Tylenol, Benadryl, Decadron 10 mg prior to blood transfusion Paroxysmal A fib Following with cardiology. Continue amiodarone 200mg daily Chronic thrombocytopenia, h/o ITP 05/22 Thrombocytopenia No active bleeding 1 unit platelet pheresis ordered to maintain platelets above 50,000 in light of planned surgical procedure Plt 91 Severe protein calorie malnutrition: Significant weight loss previously but appetite improving on Megace PAD: c/w statin. ABIs done on 03/17 showed R 0.87 and L 0.85 at rest concerning for occlusive disease to b/l SFA and tibial artery along with L iliac disease Arterial Doppler:Moderate atherosclerotic plaque within the bilateral lower extremities. Suspected occlusion of the distal left posterior tibial artery, otherwise patent vessels. Monophasic flow within the bilateral calf vessels H/o Dysphagia Continue minced and moist, easy to chew diet with thin liquids SSS S/P PPM in 2019 COPD: c/w home inhalers. no signs of exacerbation plan of care discussed with patient and his at the bedside in detail all questions answered he is understanding, agreeable, comfortable with the plan of care Admission and Anticipated Discharge Date Admission Date: May 18, 2023 Subjective Follow-up for right foot osteomyelitis, etc. Seen resting in bed, in good spirits States he feels fine overall Right foot pain well controlled No fevers or chills No other symptoms Review of Systems Review of Systems: all noted and negative except for above Physical Exam Physical Exam: General- oriented x 3, not in distress, speaks in sentences with no effort or accessory muscle use Eyes- anicteric Neck- no JVD Lungs- clear BS BL Heart- normal rate, regular rhythm; no murmurs Abdomen- normal bowel sounds, nondistended, soft, no tenderness Extremities- no pretibial edema, no calf tenderness Right foot: Dressing in place, no leak or discharge No leg edema Neuro- alert, oriented x 3; no gross focal neurologic deficits Skin- warm & dry Results & Data Results & Data Vital Signs (Past 12 Hours) Vital Signs Temp Pulse Pulse Pulse Resp BP Pulse Ox 05/22/23 07:53 05/22/23 08:05 36.4 C L 73 20 159/75 H 95 05/22/23 06:00 66 05/22/23 04:00 36.9 C 74 18 136/79 94 05/21/23 23:00 36.8 C 75 18 130/72 93 O2 Del Method 05/22/23 07:53 Room Air 05/22/23 08:05 Room Air 05/22/23 06:00 05/22/23 04:00 Room Air 05/21/23 23:00 Room Air all noted and reviewed including below
[2023-05-22] MEDS: metroNIDAZOLE 500 MG/100 ML BAG IV SCH ×2 (13:13→20:21)
--- NOTE | 2023-05-22 20:30 | Orthopedic Progress Note ---
Date of Service May 22, 2023 Assessment & Plan (1) Osteomyelitis: Plan: Patient seen, evaluated, and treated. Patient status post day #3 left partial excision of calcaneus. Wound Vac intact and running 125mmHg continuous. Waffle boots re-ordered. Previous ones have popped. Awaiting bone culture and pathology report. (2) Heel ulcer: Admission and Anticipated Discharge Date Admission Date: May 18, 2023 Subjective Patient seen at bedside status post day #3 left partial excision of calcaneus. He has no complaints. Review of Systems Review of Systems: All systems reviewed & are unremarkable except as noted in Subjective Physical Exam Constitutional: cooperative and comfortable Respiratory: normal respiratory effort Musculoskeletal: Extremities: extremities normal to inspection Skin: + ulcer (Right full thickness ulcer retro calcaneal heel) and + eschar (Left heel) Neurologic: moves all extremities (Absent protective sensation) Psychiatric: Orientation: alert and oriented x 3 Results & Data Vital Signs (Past 12 Hours) Vital Signs Temp Pulse Pulse Resp BP Pulse Ox O2 Del Method 05/22/23 14:11 69 05/22/23 11:22 36.4 C L 75 19 135/66 93 Room Air
[2023-05-23] MEDS: VANCOMYCIN HCL 1,500 MG in SODIUM CHLORIDE 0.9% 500 ML IV SCH (05:42)
[2023-05-23] MEDS: oxyCODONE HCL IR 5 MG TAB (IMMEDIATE RELEASE) PO PRN ×3 (05:42→17:13)
[2023-05-23] MEDS: CEFEPIME 2,000 MG in SYRINGE 0 ML IV SCH ×2 (05:42→17:14)
[2023-05-23] MEDS: metroNIDAZOLE 500 MG/100 ML BAG IV SCH ×2 (05:42→11:13)
[2023-05-23] MEDS: HYDROmorphone INJ 0.5 MG/0.5 ML SYR IV PRN ×3 (07:27→20:06)
[2023-05-23] MEDS: MEGESTROL ACETATE 40 MG TAB PO SCH (08:13)
[2023-05-23] MEDS: ATORVASTATIN 40 MG TAB PO SCH (08:13)
[2023-05-23] MEDS: AMIODARONE 200 MG TAB PO SCH (08:13)
[2023-05-23] MEDS: PANTOprazole 40 MG TAB PO SCH (08:13)
[2023-05-23] MEDS: CEROVITE ADV FORMULA TAB PO SCH (08:13)
[2023-05-23] MEDS: ASCORBIC ACID 500 MG TAB PO SCH (08:13)
[2023-05-23] MEDS: METOPROLOL TARTRATE 50 MG TAB PO SCH ×2 (08:13→20:07)
[2023-05-23] MEDS: ADVANCED PROBIOTIC 1250 MG CAPSULE PO SCH (08:13)
[2023-05-23 08:17] LABS: Creatinine Clr Calc Pharmacy 44.4 ml/min; Est GFR (African American) 64.7 ml/min; Est GFR (Non-African American) 55.8 ml/min
[2023-05-23] MEDS: ZINC SULFATE 220 MG CAPSULE PO SCH (09:55)
[2023-05-23] MEDS: KETOROLAC TROMETHAMINE 15 MG/ML VIAL IV PRN (11:09)
--- NOTE | 2023-05-23 18:31 | Hospitalist Progress Note ---
Date of Service May 23, 2023 Assessment & Plan (1) Heel ulcer: (2) Osteomyelitis: Plan: Infected foot ulcers, bilateral Osteomyelitis, Right Heel Peripheral Arterial Disease Pressure ulcer of right heel, stage 3, and left heel, stage 2, POA Blood culture: Coag negative staph not lugdunensis Repeat blood culture: Negative Wound cultures: Corynebacterium species F[place]ia Podiatry service consulted: 05/19 Right and Left Foot Wound Debridement, Right Foot Excision of Bone, Right Foot Application of Wound Vac(Right) - Rajinder Mccormick DPM, MS Infectious disease consulted: Vanco + Cefepime + Flagyl --> transition to vancomycin alone x6 weeks Discussed with Hilda Vicente ID Discussed with adult protective caseworker Elevated Troponin no cardiac symptoms EKG: no acute ischemia 2nd trop: 59 No cardiac symptoms 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 Rojas - randolph on hold for now and patient just began receiving radiation to neck Soft tissue neck CT with necrotic lymph nodes are further decreased in size from prior exam Continue allopurinol for tumor lysis syndrome prophylaxis Needs pretreatment with Tylenol, Benadryl, Decadron 10 mg prior to blood transfusion Paroxysmal A fib Following with cardiology. Continue amiodarone 200mg daily Chronic thrombocytopenia, h/o ITP 05/23 Thrombocytopenia No active bleeding 1 unit platelet pheresis ordered to maintain platelets above 50,000 in light of planned surgical procedure Plt 91 Severe protein calorie malnutrition: Significant weight loss previously but appetite improving on Megace PAD: c/w statin. ABIs done on 03/17 showed R 0.87 and L 0.85 at rest concerning for occlusive disease to b/l SFA and tibial artery along with L iliac disease Arterial Doppler:Moderate atherosclerotic plaque within the bilateral lower extremities. Suspected occlusion of the distal left posterior tibial artery, otherwise patent vessels. Monophasic flow within the bilateral calf vessels H/o Dysphagia Continue minced and moist, easy to chew diet with thin liquids SSS S/P PPM in 2019 COPD: c/w home inhalers. no signs of exacerbation Disposition Will need 6 weeks of IV vancomycin Discussed with adult protective caseworker plan of care discussed with patient and his at the bedside in detail all questions answered he is understanding, agreeable, comfortable with the plan of care Admission and Anticipated Discharge Date Admission Date: May 18, 2023 Subjective Follow-up for right foot osteomyelitis, etc. Resting in chair, comfortable, not in distress States he feels improved overall Right foot pain manageable no chest pain, dyspnea, palpitations, dizziness No fevers or chills No other symptoms Review of Systems Review of Systems: all noted and negative except for above Physical Exam Physical Exam: General- oriented x 3, not in distress, speaks in sentences with no effort or accessory muscle use Eyes- anicteric Neck- no JVD Lungs- clear breath sounds bilaterally, no rales/wheezes Heart- normal rate, regular rhythm; no murmurs Abdomen- normal bowel sounds, nondistended, soft, nontender Extremities- no pretibial edema, no calf tenderness Right foot with wound VAC in place No leg edema/redness/tenderness Neuro- alert, oriented x 3; no gross focal neurologic deficits Skin- warm & dry Results & Data Results & Data Vital Signs (Past 12 Hours) Vital Signs Temp Pulse Pulse Resp BP Pulse Ox O2 Del Method 05/23/23 15:46 36.7 C 79 17 137/73 93 Room Air 05/23/23 14:16 62 05/23/23 11:46 36.3 C L 64 17 115/68 94 Room Air 05/23/23 08:21 36.8 C 81 17 148/94 H 95 Room Air 05/23/23 07:26 Room Air all noted and reviewed including below
--- NOTE | 2023-05-23 22:14 | Orthopedic Progress Note ---
Date of Service May 23, 2023 Assessment & Plan (1) Osteomyelitis: Plan: Patient seen, evaluated, and treated. Patient status post day #4 left partial excision of calcaneus. Wound Vac intact and running 125mmHg continuous. Reviewed Path report noting clear margins obtained. Appreciate ID consult and recommendation Vanco + Cefepime + Flagyl --> transition to vancomycin alone x6 weeks Off loading continues to be an important part of this Patients management. (2) Heel ulcer: Admission and Anticipated Discharge Date Admission Date: May 18, 2023 Subjective Patient resting comfortably and seen at bedside. Review of Systems Review of Systems: All systems reviewed & are unremarkable except as noted in Subjective Physical Exam Constitutional: cooperative and comfortable Respiratory: normal respiratory effort Musculoskeletal: Extremities: extremities normal to inspection Skin: + ulcer (Right full thickness ulcer retro calcaneal heel) and + eschar (Left heel) Neurologic: moves all extremities (Absent protective sensation) Psychiatric: Orientation: alert and oriented x 3 Results & Data Vital Signs (Past 12 Hours) Vital Signs Temp Pulse Pulse Resp BP BP Pulse Ox 05/23/23 20:13 36.3 C L 73 18 143/71 H 96 05/23/23 15:46 36.7 C 79 17 137/73 93 05/23/23 14:16 62 05/23/23 11:46 36.3 C L 64 17 115/68 94 O2 Del Method 05/23/23 20:13 Room Air 05/23/23 15:46 Room Air 05/23/23 14:16 05/23/23 11:46 Room Air Diagnostic Findings Name:OVERDURFANGÉLICA B Age/Sex: 73/M Location: MR#: [id number] : 1950 /Bed:W251-1 Subm. Phys.:Rajinder Mccormick, DANIKA, MS Case #:[id number] Collected: 05/19/23 Received: 05/20/23 Copies To Sourav Quesada MD Hunter, John R., [facility], [place] FINAL DIAGNOSIS A. Bone, right calcaneus, excision: - Acute osteomyelitis. - Skin/soft tissue: Ulcer with inflamed granulation tissue. B. Bone, right calcaneus, clear margin, excision: - Viable-appearing bone. No significant inflammation identified. at 1315.
[2023-05-24] MEDS: oxyCODONE HCL IR 5 MG TAB (IMMEDIATE RELEASE) PO PRN ×4 (00:31→20:40)
[2023-05-24] MEDS: HYDROmorphone INJ 0.5 MG/0.5 ML SYR IV PRN ×4 (02:36→21:30)
[2023-05-24] MEDS ORDERED: VANCOMYCIN LEVEL ONE (05:30)
[2023-05-24] MEDS: VANCOMYCIN HCL 1,500 MG in SODIUM CHLORIDE 0.9% 500 ML IV SCH (06:44)
[2023-05-24 07:03] LABS: Calcium 8.3 mg/dl (8.6-10.3); Creatinine Clr Calc Pharmacy 47.7 ml/min; Est GFR (Non-African American) 56.9 ml/min; Potassium 4.1 mmol/L (3.5-5.1)
[2023-05-24 07:18] LABS: ALC (manual) 2.71 K/uL (1.2-3.4); ANC (manual) 3.48 K/uL (1.4-6.5); Echinocytes 1+; Eosinophils # (manual) 0.15 K/uL (0-0.50); Eosinophils % (manual) 2 %; Hematocrit (blood only) 28.1 % (42.0-52.0); Hemoglobin 9.2 g/dl (14.0-18.0); Lymphocytes # (manual) 2.71 K/uL (1.2-3.4); Lymphocytes % (manual) 35 %; Mean Corpuscular Hgb Conc 32.7 g/dL (32.0-36.0); Mean Corpuscular Volume 85.7 fL (80.0-100.0); Monocytes # (manual) 1.39 K/uL (0.11-0.59); Monocytes % (manual) 18 %; Neutrophils # (manual) 3.48 K/uL (1.40-6.50); Neutrophils % (manual) 45 %; Platelet Count 139 K/uL (130-400); Platelet Estimate Normal (Normal); Polychromasia 1+; RDW Coefficient of Variation 21.6 % (11.5-14.5); RDW Standard Deviation 66.7 fL (36.4-46.3); Red Blood Count 3.28 M/uL (4.70-6.10); White Blood Count 7.74 K/ul (4.8-10.8)
[2023-05-24] MEDS: CEROVITE ADV FORMULA TAB PO SCH (08:40)
[2023-05-24] MEDS: MEGESTROL ACETATE 40 MG TAB PO SCH (08:40)
[2023-05-24] MEDS: ADVANCED PROBIOTIC 1250 MG CAPSULE PO SCH (08:40)
[2023-05-24] MEDS: PANTOprazole 40 MG TAB PO SCH (08:40)
[2023-05-24] MEDS: AMIODARONE 200 MG TAB PO SCH (08:40)
[2023-05-24] MEDS: ATORVASTATIN 40 MG TAB PO SCH (08:40)
[2023-05-24] MEDS: ZINC SULFATE 220 MG CAPSULE PO SCH (08:40)
[2023-05-24] MEDS: ASCORBIC ACID 500 MG TAB PO SCH (08:40)
[2023-05-24] MEDS: METOPROLOL TARTRATE 50 MG TAB PO SCH ×2 (08:40→20:40)
--- NOTE | 2023-05-24 08:41 | Pharmacy Report ---
Pharmacy PK ABX Note - Date of Service May 24, 2023 - Assessment and Plan Assessment 73 year old M receiving Vancomycin for treatment of right foot osteomyelitis. Vancomycin * Maintenance dose: 1500 mg IV every 24 hours * Regimen is predicted to achieve target AUC/EBONY of 400-600 mg/L.hr Plan * Continue vancomycin 1500 mg IV q24h * will recheck level in 48-72 hours Pharmacy will continue to follow and will adjust dose/frequency as necessary. Thank you. Pharmacy has transitioned to AUC monitoring for vancomycin. AUC/EBONY is the preferred PK/PD target and is associated with decreased risk of nephrotoxicity compared to traditional trough targets.
--- NOTE | 2023-05-24 14:04 | Hospitalist Progress Note ---
Date of Service May 24, 2023 Assessment & Plan (1) Heel ulcer: (2) Osteomyelitis: Plan: Infected foot ulcers, bilateral Pressure ulcer of right heel, stage 3, and left heel, stage 2, POA Osteomyelitis, Right Heel Peripheral Arterial Disease Blood culture: Coag negative staph not lugdunensis x 1 bottle Repeat blood culture: Negative Wound cultures: Corynebacterium species Finegoldia Prevotella Podiatry service Dr. Mccormick consulted: 05/19 Right and Left Foot Wound Debridement, Right Foot Excision of Bone, Right Foot Application of Wound Vac(Right) - Rajinder Mccormick, DPM, MS Infectious disease Dr. Enrique consulted: Vanco + Cefepime + Flagyl --> transition to vancomycin alone x6 weeks wound culture growing Prevotella, messaged Dr. 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 Rojas - chemo on hold for now and patient just began receiving radiation to neck Soft tissue neck CT with necrotic lymph nodes are further decreased in size from prior exam Continue allopurinol for tumor lysis syndrome prophylaxis Needs pretreatment with Tylenol, Benadryl, Decadron 10 mg prior to blood transfusion Paroxysmal A fib Following with cardiology. Continue amiodarone 200mg daily Chronic thrombocytopenia, h/o ITP plt 43k prior to surgery 1 unit plt ordered plt improving, now 139k Severe protein calorie malnutrition: Significant weight loss previously but appetite improving on Megace PAD: c/w statin. ABIs done on 03/17 showed R 0.87 and L 0.85 at rest concerning for occlusive disease to b/l SFA and tibial artery along with L iliac disease Arterial Doppler:Moderate atherosclerotic plaque within the bilateral lower extremities. Suspected occlusion of the distal left posterior tibial artery, otherwise patent vessels. Monophasic flow within the bilateral calf vessels H/o Dysphagia Continue minced and moist, easy to chew diet with thin liquids SSS S/P PPM in 2019 COPD: c/w home inhalers. no signs of exacerbation Disposition: Will need 6 weeks of IV vancomycin Discussed with director case plan of care discussed with patient in detail all questions answered he is understanding, agreeable, comfortable with the plan of care Admission and Anticipated Discharge Date Admission Date: May 18, 2023 Subjective ff up for R foot osteomyelitis, etc seen resting in bed, comfortable R foot pain well controlled no other symptoms Review of Systems Review of Systems: all noted and negative except for above Physical Exam Physical Exam: General- oriented x 3, not in distress, speaks in sentences with no effort or accessory muscle use Eyes- anicteric Neck- no JVD Lungs- clear breath sounds bilaterally, no crackles or wheezing Heart- normal rate, regular rhythm; no murmurs Abdomen- normal bowel sounds, nondistended, soft, nontender Extremities- no pretibial edema, no calf tenderness R foot: wound vac in place Neuro- alert, oriented x 3; no gross focal neurologic deficits Skin- warm & dry Results & Data Results & Data Vital Signs (Past 12 Hours) Vital Signs Temp Pulse Pulse Pulse Resp BP BP 05/24/23 11:41 36.7 C 65 20 119/66 05/24/23 08:25 36.7 C 70 20 138/79 05/24/23 05:53 67 05/24/23 07:35 05/24/23 03:58 05/24/23 03:00 36.5 C 75 18 138/66 Pulse Ox O2 Del Method 05/24/23 11:41 94 Room Air 05/24/23 08:25 98 Room Air 05/24/23 05:53 05/24/23 07:35 Room Air 05/24/23 03:58 Room Air 05/24/23 03:00 93 Room Air all noted and reviewed including below
[2023-05-24] MEDS: ERTAPENEM SODIUM 1,000 MG in SYRINGE 0 ML IV SCH (17:41)
[2023-05-25] MEDS: VANCOMYCIN HCL 1,500 MG in SODIUM CHLORIDE 0.9% 500 ML IV SCH (04:49)
[2023-05-25] MEDS: HYDROmorphone INJ 0.5 MG/0.5 ML SYR IV PRN ×3 (06:47→20:09)
[2023-05-25 07:27] LABS: Creatinine Clr Calc Pharmacy 50.3 ml/min; Est GFR (Non-African American) 60.4 ml/min
[2023-05-25] MEDS ORDERED: KETOROLAC TROMETHAMINE 15 MG/ML VIAL IV PRN (07:30)
[2023-05-25] MEDS: CEROVITE ADV FORMULA TAB PO SCH (08:28)
[2023-05-25] MEDS: PANTOprazole 40 MG TAB PO SCH (08:28)
[2023-05-25] MEDS: ZINC SULFATE 220 MG CAPSULE PO SCH (08:28)
[2023-05-25] MEDS: METOPROLOL TARTRATE 50 MG TAB PO SCH ×2 (08:28→20:14)
[2023-05-25] MEDS: ATORVASTATIN 40 MG TAB PO SCH (08:28)
[2023-05-25] MEDS: ADVANCED PROBIOTIC 1250 MG CAPSULE PO SCH (08:28)
[2023-05-25 08:29] LABS: Hypogranular Neutrophils 2+
[2023-05-25] MEDS: ASCORBIC ACID 500 MG TAB PO SCH (08:29)
[2023-05-25] MEDS: AMIODARONE 200 MG TAB PO SCH (08:29)
[2023-05-25] MEDS: MEGESTROL ACETATE 40 MG TAB PO SCH (08:29)
[2023-05-25] MEDS: ERTAPENEM SODIUM 1,000 MG in SYRINGE 0 ML IV SCH (08:58)
[2023-05-25] MEDS: oxyCODONE HCL IR 5 MG TAB (IMMEDIATE RELEASE) PO PRN ×3 (09:50→23:14)
--- NOTE | 2023-05-25 15:43 | Hospitalist Progress Note ---
Date of Service May 25, 2023 Assessment & Plan (1) Heel ulcer: (2) Osteomyelitis: Plan: Infected foot ulcers, bilateral Pressure ulcer of right heel, stage 3, and left heel, stage 2, POA Osteomyelitis, Right Heel Peripheral Arterial Disease Wound cultures: Corynebacterium species Finegoldia Prevotella Blood culture: Coag negative staph not lugdunensis x 1 bottle Repeat blood culture: Negative Started on intravenous cefepime and vancomycin on admission Appreciate ID input and recommendation-advised to continue intravenous vancomycin, cefepime and Flagyl with transition to vancomycin alone x6 weeks Later on cefepime and Flagyl were discontinued and started on intravenous ertapenem as of 05/14/2023 Antibiotic should be continued for a total of 6 weeks intravenously Podiatry service Dr. 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 Rojas - chemo on hold for now and patient just began receiving radiation to neck Soft tissue neck CT with necrotic lymph nodes are further decreased in size from prior exam Continue allopurinol for tumor lysis syndrome prophylaxis Needs pretreatment with Tylenol, Benadryl, Decadron 10 mg prior to blood transfusion Paroxysmal A fib Following with cardiology. Continue amiodarone 200mg daily No acute issue Chronic thrombocytopenia, h/o ITP plt 43k prior to surgery 1 unit plt ordered plt improving, now 139k Severe protein calorie malnutrition: Significant weight loss previously but appetite improving on Megace PAD: c/w statin. ABIs done on 03/17 showed R 0.87 and L 0.85 at rest concerning for occlusive disease to b/l SFA and tibial artery along with L iliac disease Arterial Doppler:Moderate atherosclerotic plaque within the bilateral lower extremities. Suspected occlusion of the distal left posterior tibial artery, otherwise patent vessels. Monophasic flow within the bilateral calf vessels H/o Dysphagia Continue minced and moist, easy to chew diet with thin liquids SSS S/P PPM in 2019 COPD: c/w home inhalers. no signs of exacerbation Disposition: Will need 6 weeks of IV vancomycin Discussed with mental health case manager Discussed with the patient and the Admission and Anticipated Discharge Date Admission Date: May 18, 2023 Subjective 05/25/2023 The patient was seen and examined in medical telemetry unit He has been stable and denies any significant symptoms Denies any pain in the legs, no fever and or chills He wants to go home and have the antibiotic as an outpatient through [facility] Review of Systems Review of Systems: All systems reviewed and are unremarkable except as noted below Physical Exam Physical Exam: Lying in bed comfortably Constitutional: well developed, well nourished, + ill appearing and average body habitus Eyes: PERRL, conjunctivae normal, anicteric sclerae ENMT: external ear and nose normal, oropharynx normal Neck: trachea midline, no thyromegaly Respiratory: no respiratory distress Auscultation: lungs clear to auscultation bilaterally Cardiovascular: Rate/Rhythm: regular rate and regular rhythm; not tachycardic Heart Sounds: normal S1 and normal S2; no murmur Extremities: no edema Gastrointestinal (Abdomen): Inspection/Auscultation: normal bowel sounds; abdomen not distended Percussion/Palpation: abdomen soft; abdomen nontender Musculoskeletal: No acute arthritis involving any joint Neurologic: normal touch/pain/proprioception and moves all extremities; no focal motor deficits Lymphatic: no cervical or axillary lymphadenopathy Results & Data Results & Data Vital Signs (Past 12 Hours) Vital Signs Temp Pulse Pulse Resp BP BP Pulse Ox 05/25/23 12:35 36.7 C 70 14 128/70 94 05/25/23 07:21 36.8 C 79 18 153/78 H 94 05/25/23 04:14 36.6 C 77 18 160/79 H 93 O2 Del Method 05/25/23 12:35 Room Air 05/25/23 07:21 Room Air 05/25/23 04:14 Room Air Laboratory Results BMP 05/25/23 06:15 Creatinine 1.18 Medications Administered Current Inpatient Medications Albuterol (Albuterol Hfa 8 Gm Inhaler) 1 puffs INH QID PRN PRN Reason: sob Stop: 06/17/23 20:58 Amiodarone HCl (Amiodarone 200 Mg Tab) 200 mg PO QAM [facility] Stop: 06/18/23 08:59 Last Admin: 05/25/23 08:29 Dose: 200 mg Ascorbic Acid (Ascorbic Acid 500 Mg Tab) 500 mg PO DAILY JOÃO Stop: 06/18/23 08:59 Last Admin: 05/25/23 08:29 Dose: 500 mg Atorvastatin Calcium (Atorvastatin 40 Mg Tab) 40 mg PO QAM [facility] Stop: 06/18/23 08:59 Last Admin: 05/25/23 08:28 Dose: 40 mg Hydromorphone HCl (Hydromorphone Inj 0.5 Mg/0.5 Ml Syr) 0.5 mg IV Q6H PRN PRN Reason: moderate to severe pain Stop: 06/03/23 10:45 Last Admin: 05/25/23 12:45 Dose: 0.5 mg Vancomycin HCl 1,500 mg/ (Sodium Chloride) 530 mls @ 200 mls/hr IV DAILY@0600 [facility] Stop: 06/30/23 05:59 Last Infusion: 05/25/23 07:36 Dose: Infused Ertapenem 1,000 mg/ Syringe 10 mls @ 2 mls/min IV Q24H [facility] Stop: 07/05/23 16:14 Last Admin: 05/25/23 08:58 Dose: 2 mls/min Ketorolac Tromethamine (Ketorolac Tromethamine 15 Mg/Ml Vial) 15 mg IV Q6H PRN PRN Reason: Pain Stop: 05/26/23 12:05 Lactobacillus Acidophilus (Advanced Probiotic 1250 Mg Capsule) 2 cap PO DAILY [facility] Stop: 06/19/23 08:59 Last Admin: 05/25/23 08:28 Dose: 2 cap Megestrol Acetate (Megestrol Acetate 40 Mg Tab) 40 mg PO QAM [facility] Stop: 06/18/23 08:59 Last Admin: 05/25/23 08:29 Dose: 40 mg Metoprolol Tartrate (Metoprolol Tartrate 50 Mg Tab) 50 mg PO BID [facility] Stop: 06/17/23 20:59 Last Admin: 05/25/23 08:28 Dose: 50 mg Miscellaneous Information (Vancomycin Consult Active) 1 each N/A UD PRN PRN Reason: Consult Stop: 06/17/23 20:58 Multivitamins/Minerals (Cerovite Adv Formula Tab) 1 tab PO QAM [facility] Stop: 06/18/23 08:59 Last Admin: 05/25/23 08:28 Dose: 1 tab Oxycodone HCl (Oxycodone Hcl Ir 5 Mg Tab (Immediate Release)) 5 mg PO Q4H PRN PRN Reason: Pain Stop: 06/02/23 01:48 Last Admin: 05/25/23 09:50 Dose: 5 mg Pantoprazole Sodium (Pantoprazole 40 Mg Tab) 40 mg PO DAILY [facility] Stop: 06/18/23 08:59 Last Admin: 05/25/23 08:28 Dose: 40 mg Zinc Sulfate (Zinc Sulfate 220 Mg Capsule) 220 mg PO DAILY [facility] Stop: 06/18/23 08:59 Last Admin: 05/25/23 08:28 Dose: 220 mg
--- NOTE | 2023-05-25 17:56 | Orthopedic Progress Note ---
Date of Service May 25, 2023 Assessment & Plan (1) Osteomyelitis: Plan: Patient seen, evaluated, and treated. Patient status post day #4 left partial excision of calcaneus. Wound Vac intact and running 125mmHg continuous. Off loading continues to be an important part of this Patients management. Will continue to follow upon discharge for out patient management. (2) Heel ulcer: Admission and Anticipated Discharge Date Admission Date: May 18, 2023 Subjective Patient seen at bedside. He is resting comfortably. Patient status post day left partial excision of calcaneus. Physical Exam Constitutional: cooperative and comfortable Respiratory: normal respiratory effort Musculoskeletal: Extremities: extremities normal to inspection Skin: + ulcer (Right full thickness ulcer retro calcaneal heel) and + eschar (Left heel) Neurologic: moves all extremities (Absent protective sensation) Psychiatric: Orientation: alert and oriented x 3 Results & Data Vital Signs (Past 12 Hours) Vital Signs Temp Pulse Pulse Resp BP BP Pulse Ox 05/25/23 15:42 36.5 C 65 16 110/56 L 93 05/25/23 12:35 36.7 C 70 14 128/70 94 05/25/23 07:21 36.8 C 79 18 153/78 H 94 O2 Del Method 05/25/23 15:42 Room Air 05/25/23 12:35 Room Air 05/25/23 07:21 Room Air
[2023-05-26] MEDS: HYDROmorphone INJ 0.5 MG/0.5 ML SYR IV PRN ×2 (02:13→14:18)
[2023-05-26] MEDS ORDERED: VANCOMYCIN LEVEL ONE (05:30)
[2023-05-26] MEDS: VANCOMYCIN HCL 1,500 MG in SODIUM CHLORIDE 0.9% 500 ML IV SCH (06:30)
--- NOTE | 2023-05-26 07:40 | Pharmacy Report ---
Pharmacy PK ABX Note - Date of Service May 26, 2023 - Assessment and Plan Assessment 73 year old M receiving Vancomycin/Invanz for treatment of right foot osteomyelitis. Cultures from 05/19/23 demonstrate corynebacterium (no sensitives from [facility] yet), Finegoldia, and Prevotella. Vancomycin * Maintenance dose: 1500 mg IV every 24 hours * Regimen is predicted to achieve target AUC/EBONY of 400-600 mg/L.hr Plan * Continue vancomycin 1500 mg IV q24h * will recheck level on Tuesday if patient remains hospitalized Pharmacy will continue to follow and will adjust dose/frequency as necessary. Thank you. Pharmacy has transitioned to AUC monitoring for vancomycin. AUC/EBONY is the preferred PK/PD target and is associated with decreased risk of nephrotoxicity compared to traditional trough targets.
[2023-05-26] MEDS: ERTAPENEM SODIUM 1,000 MG in SYRINGE 0 ML IV SCH (08:20)
[2023-05-26] MEDS: METOPROLOL TARTRATE 50 MG TAB PO SCH (08:20)
[2023-05-26] MEDS: oxyCODONE HCL IR 5 MG TAB (IMMEDIATE RELEASE) PO PRN ×3 (08:20→20:01)
[2023-05-26] MEDS: CEROVITE ADV FORMULA TAB PO SCH (08:20)
[2023-05-26] MEDS: ASCORBIC ACID 500 MG TAB PO SCH (08:20)
[2023-05-26] MEDS: ATORVASTATIN 40 MG TAB PO SCH (08:21)
[2023-05-26] MEDS: ADVANCED PROBIOTIC 1250 MG CAPSULE PO SCH (08:21)
[2023-05-26] MEDS: MEGESTROL ACETATE 40 MG TAB PO SCH (08:21)
[2023-05-26] MEDS: AMIODARONE 200 MG TAB PO SCH (08:21)
[2023-05-26] MEDS: ZINC SULFATE 220 MG CAPSULE PO SCH (08:21)
[2023-05-26] MEDS: PANTOprazole 40 MG TAB PO SCH (08:21)
--- NOTE | 2023-05-26 13:51 | Hospitalist Progress Note ---
Date of Service May 26, 2023 Assessment & Plan (1) Heel ulcer: (2) Osteomyelitis: Plan: Infected foot ulcers, bilateral Pressure ulcer of right heel, stage 3, and left heel, stage 2, POA Osteomyelitis, Right Heel Peripheral Arterial Disease Wound cultures: Corynebacterium species Finegoldia Prevotella Blood culture: Coag negative staph not lugdunensis x 1 bottle Repeat blood culture: Negative Started on intravenous cefepime and vancomycin on admission Appreciate ID input and recommendation-advised to continue intravenous vancomycin, cefepime and Flagyl with transition to vancomycin alone x6 weeks Later on cefepime and Flagyl were discontinued and started on intravenous ertapenem as of 05/14/2023 Antibiotic should be continued for a total of 6 weeks intravenously cinema or theatre manager has been working on insurance approval for wound VAC and also intravenous antibiotic use The patient will use via transport [facility] for intravenous antibiotics Likely discharge tomorrow Podiatry service Dr. 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 Rojas - chemo on hold for now and patient just began receiving radiation to neck Soft tissue neck CT with necrotic lymph nodes are further decreased in size from prior exam Continue allopurinol for tumor lysis syndrome prophylaxis Needs pretreatment with Tylenol, Benadryl, Decadron 10 mg prior to blood transfusion Paroxysmal A fib Following with cardiology. Continue amiodarone 200mg daily No acute issue Chronic thrombocytopenia, h/o ITP plt 43k prior to surgery 1 unit plt ordered plt improving, now 139k Severe protein calorie malnutrition: Significant weight loss previously but appetite improving on Megace PAD: c/w statin. ABIs done on 03/17 showed R 0.87 and L 0.85 at rest concerning for occlusive disease to b/l SFA and tibial artery along with L iliac disease Arterial Doppler:Moderate atherosclerotic plaque within the bilateral lower extremities. Suspected occlusion of the distal left posterior tibial artery, otherwise patent vessels. Monophasic flow within the bilateral calf vessels H/o Dysphagia Continue minced and moist, easy to chew diet with thin liquids SSS S/P PPM in 2019 COPD: c/w home inhalers. no signs of exacerbation Disposition: Will need 6 weeks of IV vancomycin Discussed with bottle caser Discussed with the patient and the Admission and Anticipated Discharge Date Admission Date: May 18, 2023 Subjective 05/25/2023 The patient was seen and examined in medical telemetry unit He has been stable and denies any significant symptoms Denies any pain in the legs, no fever and or chills He wants to go home and have the antibiotic as an outpatient through [facility] 05/26/2023 The patient was seen and examined in medical telemetry unit He remains stable and wants to go home by tomorrow He denies any symptoms He will sign out AMA if not discharged tomorrow Review of Systems Review of Systems: All systems reviewed and are unremarkable except as noted below Physical Exam Physical Exam: Lying in bed comfortably Constitutional: well developed, well nourished, + ill appearing and average body habitus Eyes: PERRL, conjunctivae normal, anicteric sclerae ENMT: external ear and nose normal, oropharynx normal Neck: trachea midline, no thyromegaly Respiratory: no respiratory distress Auscultation: lungs clear to auscultation bilaterally Cardiovascular: Rate/Rhythm: regular rate and regular rhythm; not tachycardic Heart Sounds: normal S1 and normal S2; no murmur Extremities: no edema Gastrointestinal (Abdomen): Inspection/Auscultation: normal bowel sounds; abdomen not distended Percussion/Palpation: abdomen soft; abdomen nontender Neurologic: normal touch/pain/proprioception and moves all extremities; no focal motor deficits Lymphatic: no cervical or axillary lymphadenopathy Results & Data Results & Data Vital Signs (Past 12 Hours) Vital Signs Temp Pulse Pulse Pulse Resp BP BP 05/26/23 11:29 36.5 C 75 18 120/69 120/69 05/26/23 08:00 64 05/26/23 08:05 36.7 C 65 16 124/78 05/26/23 05:07 36.7 C 72 20 156/56 H 05/26/23 01:48 Pulse Ox O2 Del Method 05/26/23 11:29 91 Room Air 05/26/23 08:00 05/26/23 08:05 93 Room Air 05/26/23 05:07 93 Room Air 05/26/23 01:48 Room Air Medications Administered Current Inpatient Medications Albuterol (Albuterol Hfa 8 Gm Inhaler) 1 puffs INH QID PRN PRN Reason: sob Stop: 06/17/23 20:58 Amiodarone HCl (Amiodarone 200 Mg Tab) 200 mg PO QAM JOÃO Stop: 06/18/23 08:59 Last Admin: 05/26/23 08:21 Dose: 200 mg Ascorbic Acid (Ascorbic Acid 500 Mg Tab) 500 mg PO DAILY JOÃO Stop: 06/18/23 08:59 Last Admin: 05/26/23 08:20 Dose: 500 mg Atorvastatin Calcium (Atorvastatin 40 Mg Tab) 40 mg PO QAM JOÃO Stop: 06/18/23 08:59 Last Admin: 05/26/23 08:21 Dose: 40 mg Hydromorphone HCl (Hydromorphone Inj 0.5 Mg/0.5 Ml Syr) 0.5 mg IV Q6H PRN PRN Reason: moderate to severe pain Stop: 06/03/23 10:45 Last Admin: 05/26/23 02:13 Dose: 0.5 mg Vancomycin HCl 1,500 mg/ (Sodium Chloride) 530 mls @ 200 mls/hr IV DAILY@0600 JOÃO Stop: 06/30/23 05:59 Last Infusion: 05/26/23 09:08 Dose: Infused Ertapenem 1,000 mg/ Syringe 10 mls @ 2 mls/min IV Q24H JOÃO Stop: 07/05/23 16:14 Last Admin: 05/26/23 08:20 Dose: 2 mls/min Lactobacillus Acidophilus (Advanced Probiotic 1250 Mg Capsule) 2 cap PO DAILY JOÃO Stop: 06/19/23 08:59 Last Admin: 05/26/23 08:21 Dose: 2 cap Megestrol Acetate (Megestrol Acetate 40 Mg Tab) 40 mg PO QAM JOÃO Stop: 06/18/23 08:59 Last Admin: 05/26/23 08:21 Dose: 40 mg Metoprolol Tartrate (Metoprolol Tartrate 50 Mg Tab) 50 mg PO BID JOÃO Stop: 06/17/23 20:59 Last Admin: 05/26/23 08:20 Dose: 50 mg Miscellaneous Information (Vancomycin Consult Active) 1 each N/A UD PRN PRN Reason: Consult Stop: 06/17/23 20:58 Multivitamins/Minerals (Cerovite Adv Formula Tab) 1 tab PO QAM [facility] Stop: 06/18/23 08:59 Last Admin: 05/26/23 08:20 Dose: 1 tab Oxycodone HCl (Oxycodone Hcl Ir 5 Mg Tab (Immediate Release)) 5 mg PO Q4H PRN PRN Reason: Pain Stop: 06/02/23 01:48 Last Admin: 05/26/23 11:56 Dose: 5 mg Pantoprazole Sodium (Pantoprazole 40 Mg Tab) 40 mg PO DAILY [facility] Stop: 06/18/23 08:59 Last Admin: 05/26/23 08:21 Dose: 40 mg Zinc Sulfate (Zinc Sulfate 220 Mg Capsule) 220 mg PO DAILY [facility] Stop: 06/18/23 08:59 Last Admin: 05/26/23 08:21 Dose: 220 mg
--- NOTE | 2023-05-26 19:14 | Orthopedic Progress Note ---
Date of Service May 26, 2023 Assessment & Plan (1) Osteomyelitis: Plan: Patient seen, evaluated, and treated. Patient status post day #7 left partial excision of calcaneus. Off loading continues to be an important part of this Patients management. Patient is non weight bearing to right heel. Will continue to follow upon discharge for out patient management. (2) Heel ulcer: Admission and Anticipated Discharge Date Admission Date: May 18, 2023 Subjective Patient seen at bedside for right and left heel wounds. Patient is and would like to be discharged. Review of Systems Review of Systems: All systems reviewed & are unremarkable except as noted in Subjective Physical Exam Constitutional: cooperative and comfortable Respiratory: normal respiratory effort Musculoskeletal: Extremities: extremities normal to inspection Skin: + ulcer (Right full thickness ulcer retro calcaneal heel) and + eschar (Left heel) Neurologic: moves all extremities (Absent protective sensation) Psychiatric: Orientation: alert and oriented x 3 Results & Data Vital Signs (Past 12 Hours) Vital Signs Temp Pulse Pulse Resp BP BP Pulse Ox 05/26/23 16:08 36.8 C 73 16 122/68 91 05/26/23 11:29 36.5 C 75 18 120/69 120/69 91 05/26/23 08:00 64 05/26/23 08:05 36.7 C 65 16 124/78 93 O2 Del Method 05/26/23 16:08 Room Air 05/26/23 11:29 Room Air 05/26/23 08:00 05/26/23 08:05 Room Air
--- NOTE | 2023-05-26 20:00 | Communication Note ---
Date of Service: May 26, 2023 The patient has been very agitated that she wants to leave the hospital by this evening. He threatened to sign out AMA. He was discharged with instruction and was advised to call for any further need tomorrow morning. Not sure if all the necessary requirements have been made or not. Dr Kike Benton
--- NOTE | 2023-05-27 12:14 | Discharge Summary ---
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, history of symptomatic SVT, h/o tachy boris syndrome s/p pacemaker placement in 2018, abdominal aorta ectasia, history of NSTEMI in Sep 2020 and paroxysmal A fib diagnosed in November 2022 started on amiodarone therapy, fall in Oct resulting in hip fracture s/p IM nailing in Oct 2022, ongoing tobacco use and other medical problems listed below who presents withprogressive R foot swelling and pain x few days. Patient has had chronic wounds of BL feet for at least 2 months per . [facility] For the past few days, patient has had worsening of R foot swelling, redness, and pain. No drainage on the R heel wound noted. No fever/chills. no chest pain, dyspnea, palpitations, dizziness At the ER, R foot xray noted to have osteomyelitis. Admission Exam Per Admitting Provider Physical Exam: General- oriented x 3, not in distress, speaks in sentences with no effort or accessory muscle use Head- atraumatic Eyes- PERRL, EOMI, anicteric ENT- oropharynx clear Neck- supple, no JVD, no adenopathy, no thyromegaly; carotids +2/2, no bruits appreciated Lungs- clear to auscultation bilaterally, no rales/wheezes Heart- normal rate, regular rhythm; no murmur, no gallop, no rub appreciated Abdomen- normal bowel sounds, nondistended, soft, nontender, no masses or hepatosplenomegaly Extremities- R Foot/ankle/distal lower leg: mild edema, erythema, tenderness (+) ulcer on the R heel- scant yellow drainage L Foot: Heel wound with scab Neuro- alert, oriented x 3; CN 2-12 grossly intact; motor 5/5 bilaterally;sensation 100% on all extremities; no other gross focal neurologic deficits Skin- warm & dry Principal Diagnosis Right foot osteomyelitis Discharge Exam Lying in bed comfortably Constitutional well developed, well nourished, + ill appearing and average body habitus Eyes PERRL, conjunctivae normal, anicteric sclerae ENMT external ear and nose normal, oropharynx normal Neck trachea midline, no thyromegaly Respiratory no respiratory distress Auscultation: lungs clear to auscultation bilaterally Cardiovascular Rate/Rhythm: regular rate and regular rhythm; not tachycardic Heart Sounds: normal S1 and normal S2; no murmur Extremities: no edema Gastrointestinal (Abdomen) Inspection/Auscultation: normal bowel sounds; abdomen not distended Percussion/Palpation: abdomen soft; abdomen nontender Neurologic normal touch/pain/proprioception and moves all extremities; no focal motor de ficits Lymphatic no cervical or axillary lymphadenopathy Discharge Data Allergies Allergy/AdvReac Type Severity Reaction Status Date / Time cephalexin AdvReac Intermediate vomiting, Verified 05/27/23 10:11 diarrhea Consultations 05/18/23 17:32 ED Decision to Admit Stat 05/18/23 18:13 Consult Infectious Diseases Routine Consult Podiatry Routine Procedures Performed Operation Date: 05/19/23 09:50 Actual Procedures p Right and Left Foot Wound Debridement, Right Foot Excision of Bone, Right Foot Application of Wound Vac(Right) - Rajinder Mccormick DPM, MS Hospital Course (1) Heel ulcer: (2) Osteomyelitis: Infected foot ulcers, bilateral Pressure ulcer of right heel, stage 3, and left heel, stage 2, POA Osteomyelitis, Right Heel Peripheral Arterial Disease Wound cultures: Corynebacterium species Finegoldia Prevotella Blood culture: Coag negative staph not lugdunensis x 1 bottle Repeat blood culture: Negative Started on intravenous cefepime and vancomycin on admission Appreciate ID input and recommendation-advised to continue intravenous vancomycin, cefepime and Flagyl with transition to vancomycin alone x6 weeks Later on cefepime and Flagyl were discontinued and started on intravenous ertapenem as of 05/14/2023 Antibiotic should be continued for a total of 6 weeks intravenously industrial production manager has been working on insurance approval for wound VAC and also intravenous antibiotic use The patient will use via transport to [facility] for intravenous antibiotics Likely discharge tomorrow Podiatry service Dr. 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 Rojas - chemo on hold for now and patient just began receivi ng radiation to neck Soft tissue neck CT with necrotic lymph nodes are further decreased in size from prior exam Continue allopurinol for tumor lysis syndrome prophylaxis Needs pretreatment with Tylenol, Benadryl, Decadron 10 mg prior to blood transfusion Paroxysmal A fib Following with cardiology. Continue amiodarone 200mg daily No acute issue Chronic thrombocytopenia, h/o ITP plt 43k prior to surgery 1 unit plt ordered plt improving, now 139k Severe protein calorie malnutrition: Significant weight loss previously but appetite improving on Megace PAD: c/w statin. ABIs done on 03/17 showed R 0.87 and L 0.85 at rest concerning for occlusive disease to b/l SFA and tibial artery along with L iliac disease Arterial Doppler:Moderate atherosclerotic plaque within the bilateral lower extremities. Suspected occlusion of the distal left posterior tibial artery, otherwise patent vessels. Monophasic flow within the bilateral calf vessels H/o Dysphagia Continue minced and moist, easy to chew diet with thin liquids SSS S/P PPM in 2019 COPD: c/w home inhalers. no signs of exacerbation Disposition: Will need 6 weeks of IV vancomycin Discussed with top case assembler Discussed with the patient and the Total Time Total Time Spent Total Time Spent (In Minutes): 35 minutes Discharge Plan Discharge Items Patient Disposition: Home - Home Health Services Reason For Visit: R FOOT OSTEOMYELITIS Discharge Diagnosis: Right foot osteomyelitis Condition on Discharge: Fair Activity: As commented below Activity Comment: Patient non weight bearing to right heel. Weightbearing: Right toe touch Weightbearing Comment: NWB to right heel. Non-emergency contact: Primary Care Provider Call non-emergency contact if: you have any medication questions and your symptoms worsen Follow-up/Referrals: Oz Null MD [Physician] - (Please make an appointment with your PCP within 1 week) [facility] [Primary Care Provider] - Diet: Regular Addtl Attending Provider Instructions: Precautiontien to avoid falls Please come to the [facility] for in antibiotic injection This take your medications as advised Continue IV ertapenem 1000 mg every 24 hours until 06/29/2023 Continue IV vancomycin 1500 mg daily until 06/29/2023 Have weekly comprehensive metabolic panel, CBC and CRP level and report to the PCP Addtl Lingo Cleaner Provider Instructions: Patient to follow with [facility] Dr. Mccormick [phone]. Pending Studies at Discharge: No Stand-Alone Forms: My [facility], Smoking Cessation Medications and DC Order Prescriptions: New Advanced Probiotic 625 mg (10 billion cell) Capsule 2 cap PO DAILY Qty: 60 0RF Continued ascorbic acid (vitamin C) 500 mg capsule 500 mg PO DAILY zinc sulfate 50 mg zinc (220 mg) tablet 50 mg PO DAILY pantoprazole 40 mg Tablet,Delayed Release (Dr/Ec) 40 mg PO DAILY Ear Drops (carbamide peroxide) 6.5 % Drops 5 drp OTR BID PRN (Reason: earwax) Qty: 15 0RF Rx Instructions: Use twice a day up to 4 days as needed Cerovite Senior 0.4 mg-300 mcg- 250 mcg Tablet 1 tab PO QAM Qty: 30 0RF cyclobenzaprine 10 mg Tablet 10 mg PO BID Qty: 60 0RF atorvastatin 40 mg Tablet 40 mg PO QAM Qty: 30 0RF polyethylene glycol 3350 [Miralax] 17 gram Powder In Packet 17 g PO QAM PRN (Reason: Constipation) Qty: 14 0RF metoprolol tartrate [Lopressor] 50 mg tablet 50 mg PO BID Qty: 60 0RF albuterol sulfate 90 mcg/actuation Hfa Aerosol Inhaler 1 inh INHALATION QID PRN (Reason: sob) Qty: 6.7 0RF ondansetron 4 mg Tablet,Disintegrating 4 mg PO Q8H PRN (Reason: Nausea) Qty: 10 0RF megestrol 40 mg Tablet 40 mg PO QAM Qty: 30 0RF amiodarone 200 mg tablet 200 mg PO QAM oxycodone 5 mg tablet 5 mg PO Q6H PRN (Reason: Pain) Discharge Orders: Discharge Order (Routine); Ordered 05/26/23 Ordered By: Lilly Monique/Other Patient Handouts: Nutrition for Wound Healing Admission Data Admit Date/Time: 05/18/23 18:13 Attending Provider: Lilly Benton Admit Provider: Sourav Quesada Primary Care Provider: [facility] Other Providers: [facility] ; Virginia Driver Lulu,Jackson. ; Teena Carroll ; Oz Null I. ; Conrado Dalal II ; Antonia Chacon ; Magdaleno Ying ; Peterson Campo ; Evelyn Joyce ; Rajinder Mccormick ; Sourav Quesada Other Interventions: Discharge Summary Assessment (RN) Last Done: 05/26/23 20:04
[2023-05-30] MEDS ORDERED: VANCOMYCIN LEVEL ONE (05:30)
== END 2023-05-26 20:17 | disposition home health service (06) | DRG 463 ==
LOC: ED 13:57 → 2W 18:13 → SUATTDRO 18:13 → 2W 20:57

== ENCOUNTER 2023-09-13 13:49 | Inpatient (IN) ==
[2023-09-13] MEDS ORDERED: CEFEPIME 2,000 MG/20 ML VIAL IV STA (14:10)
[2023-09-13] MEDS ORDERED: SODIUM CHLORIDE 0.9% 500 ML IV ONE (14:10)
[2023-09-13] MEDS ORDERED: ONDANSETRON INJ 2 MG/ML 2 ML VIAL IV STA (14:10)
[2023-09-13] MEDS ORDERED: MoRPHine SULFATE 4 MG/ML 1 ML CARP\\VIAL IV STA (14:10)
--- NOTE | 2023-09-13 14:16 | Emergency Department Note ---
Impression & Plan Osteomyelitis, Anemia, Cellulitis, Failure of outpatient treatment ED Provider Note NAME: ANGÉLICA BRIZUELA AGE: 73 SEX: M : 1950 ARRIVES VIA: Walk-In INFORMANT: [Patient][family] ED PROVIDER(S): [Richie Cerda MD] CHIEF COMPLAINT: Infection, wound HISTORY OF PRESENT ILLNESS: The patient is a 73-year-old male who presents to the ER at the advice of his search specialist, Dr. Mccormick. The patient has been having issues with the right lower extremity. He had an ulcer on his heel that became infected. He is not currently on antibiotics. The patient states that for the last 4 to 5 days, he has had some increasing pain in the area of the right distal leg and there has been the development of some erythema. He has been cold but there has been no documented fever. The patient states that he thinks the boot he was wearing rubbed the outside of his ankle and caused an opening. The patient was seen today at the search specialist office. There was concern for osteomyelitis and hardware exposure. He was sent to the hospital for antibiotics and a presumed operation tomorrow. The patient has not a cough or cold or congestion. He has no abdominal pain. PMHx/PSHx/Social Hx: See Below PHYSICAL EXAM: GENERAL: Patient is in no acute distress. HEENT: No acute trauma, normocephalic atraumatic, mucous membranes moist, no nasal congestion. NECK: No stridor, no adenopathy, no meningismus, trachea is midline. LUNGS: Clear to auscultation bilaterally, no wheeze, no rhonchi, breath sounds equal. HEART: Without murmurs gallops or rubs, regular rate and rhythm. ABDOMEN: Soft, nontender, no peritonitis. EXTREMITIES: No cyanosis. The patient does have erythema of the right ankle and right distal leg. There is a small 1 mm opening along the right lateral malleolus with some puslike drainage. A culture was obtained. Metal hardware can be seen through the opening. There is a healing ulcer to the lateral aspect of the right posterior heel. NEUROLOGIC: Oriented x 3, no acute motor or sensory deficits, no focal weakness. SKIN: No jaundice, no diaphoresis. DIFFERENTIAL DIAGNOSIS: Osteomyelitis, cellulitis, bacteremia or sepsis, among others. EMERGENCY DEPARTMENT PROCEDURES: MEDICAL DECISION MAKING: There is no leukocytosis. The patient is anemic however, this is baseline when looking back at previous testing. There is a normal platelet count. PTT is high at 3.4, the INR is essentially normal. There is a slight elevation to the creatinine however, looking back at previous testing, this is baseline for the patient. No electrolyte abnormality in need of emergent correction. Lactic acid level is not elevated making severe sepsis less likely. No concerning liver enzyme elevation. C-reactive protein is elevated consistent with inflammation/infection, the sed rate is normal. Procalcitonin level is normal. Right foot CT scan does show osteomyelitis. On exam, there was cellulitis present. A culture of the drainage was obtained. Patient received IV cefepime as antibiotic coverage. He was given IV vancomycin as antibiotic coverage, he received a 500 cc saline bolus, he was given IV morphine for pain, IV Zofran for nausea. He was given IV Dilaudid for pain. The patient is in need of a hospital stay. He is going to be seen by podiatry during this hospitalization and is slated for a surgical procedure to remove his hardware tomorrow. I did speak with case management, the on-call hospitalist was consulted. Prior/Outside records/notes reviewed: Podiatric note from the outpatient office today discussing the hardware exposure and need for an operation tomorrow. Imaging/x-ray results per my interpretation: Chronic Medical/Social conditions affecting care: Lymphoma, COPD, low platelet count chronically. Care/Management discussed with: Case management, the on-call hospitalist. Level of care consideration(s): After review of the information above and other included data: --I believe the patient requires escalation of care to admission DISPOSITION: Admission with podiatric/surgical consult Past Med/Surg History Medical History Atrial fibrillation onset 11/2022. Follows with Dr. Campos. Not a candidate for ASA or AC due to pancytopenia and thrombocytopenia History of non-ST elevation myocardial infarction (NSTEMI) 09/2022 per record- treated consevatively Weight loss Pressure ulcer to BL foot. per , pt has appt with [facility] wound on 02/25. 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 Rodriguez. follows with Dr Campos, does have home monitoring regularly. last checked in June 2022 History of COVID-19 diagnosed 10/14/21 @ [facility] - mild cold symptoms Tachy-boris syndrome S/p elective pacemaker implant SVT (supraventricular tachycardia) hx in 2018 -- pacemaker placed and no recent problems. 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 per records) Chest CT from 12/26/22- shows only mild ectasia of aorta at 2.9cm Hyperlipidemia Hypertension Surgical History Port-A-Cath in place (02/17/23) History of open reduction and internal fixation (ORIF) procedure History of esophagogastroduodenoscopy (EGD) H/O lymph node biopsy History of facial surgery History of surgery History of carpal tunnel surgery of right wrist History of open reduction and internal fixation (ORIF) procedure History of open reduction and internal fixation (ORIF) procedure History of bone marrow biopsy History of basal cell carcinoma (BCC) excision History of tooth extraction History of cardiac pacemaker Hx of colonoscopy Hx of shoulder surgery Family History Father Lung cancer Cancer Mother Colorectal cancer Sister Cancer Brother Cancer Other No family history of adverse response to anesthesia Social History Smoking Status: Never smoker Tobacco Type: Cigarettes packs per day: 0.5; Cigarettes Per Day: several /day; Second Hand Exposure: No; Do You Dip or Chew Tobacco: No; Hx Alcohol Use: No Hx Substance Use: No Preferred Language: Mongolian Communication Ability: at be Visual Impairment: No Limitations Hearing Ability: Hard of Hearing 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 assists with care, son lives in same home and is able to help if needed when he is not working. Feels Safe at Home: Yes Diet: regular Assistive Devices: Bedside Commode, Oxygen - at Night and Wheelchair Allergies Allergies Allergy/AdvReac Type Severity Reaction Status Date / Time cephalexin AdvReac Intermediate vomiting, Verified 08/26/23 12:04 diarrhea Home Meds Home Medications Medication Instructions Recorded Confirmed amiodarone 200 mg tablet 200 mg PO QAM 12/26/22 09/13/23 pantoprazole 40 mg tablet,delayed 40 mg PO DAILY 02/17/23 09/13/23 release ascorbic acid (vitamin C) 500 mg 500 mg PO DAILY 04/28/23 09/13/23 capsule zinc sulfate 50 mg zinc (220 mg) 50 mg PO DAILY 04/28/23 09/13/23 tablet eltrombopag 50 mg tablet (Promacta) 50 mg PO DAILY 08/26/23 09/13/23 hydrocodone 7.5 mg-acetaminophen 1 tab PO Q6H PRN Pain 08/26/23 09/13/23 325 mg tablet mhhsjwvt-iiz-guzzf acid 0.4 1 tab PO QAM 08/26/23 09/13/23 mg-lycopene 300 mcg-lutein 250 mcg tablet (Cerovite Senior) Previous Rx's Medication Instructions Recorded albuterol sulfate 90 mcg/actuation 1 inh inhalation QID PRN sob #6.7 11/05/22 aerosol inhaler grams atorvastatin 40 mg tablet 40 mg PO QAM #30 tabs 11/05/22 carbamide peroxide 6.5 % ear drops 5 drp OTR BID PRN earwax #15 mL 11/05/22 (Ear Drops (carbamide peroxide)) cyclobenzaprine 10 mg tablet 10 mg PO BID #60 tabs 11/05/22 metoprolol tartrate 50 mg tablet 50 mg PO BID #60 tabs 11/05/22 (Lopressor) ondansetron 4 mg disintegrating 4 mg PO Q8H PRN Nausea #10 tabs 11/05/22 tablet polyethylene glycol 3350 17 gram 17 g PO QAM PRN Constipation #14 ea 11/05/22 oral powder packet (Miralax) megestrol 40 mg tablet 40 mg PO QAM #30 tabs 12/07/22 L.acidop,casei,lactis,rham-B.lact,ileana 2 cap PO DAILY #60 caps 05/26/23 625 mg (10 billion cell) capsule (Advanced Probiotic) Results & Data (ED) Vital Signs Vital Signs - 24 hr 09/13/23 13:51 09/13/23 16:09 Temperature 36.8 C Temperature Source Temporal Artery Scan Pulse Rate 82 67 Pulse Rhythm Regular Respiratory Rate 20 Respiratory Effort / Characteristics Non-Labored Spontaneous Respiratory Depth Normal Blood Pressure 109/62 Blood Pressure Mean 77 Pulse Oximetry 96 Oxygen Delivery Method Room Air Sepsis Recent Fever Within 48 Hours No Sepsis New/Unexplained Change in Mental Status No Sepsis Action Taken by Nursing No Action Required Home Medications Current Medication List: was personally reviewed by me Laboratory Data Attestation: I reviewed the patient's lab results. 09/13/23 15:02 09/13/23 15:02 Lab Results 09/13/23 Range/Units 15:02 WBC 9.98 (4.8-10.8) K/ul RBC 3.45 L (4.70-6.10) M/uL Hgb 9.4 L (14.0-18.0) g/dl Hct 30.9 L (42.0-52.0) % MCV 89.6 (80.0-100.0) fL MCH 27.2 (25.0-34.0) pg MCHC 30.4 L (32.0-36.0) g/dL RDW Std Deviation 78.9 H (36.4-46.3) fL RDW Coeff of Efren 24.4 H (11.5-14.5) % Plt Count 149 (130-400) K/uL Immature Gran % (Auto) 0.2 % Neut % (Auto) 41.2 % Lymph % (Auto) 20.7 % Mcdonald % (Auto) 37.4 % Eos % (Auto) 0.4 % Baso % (Auto) 0.1 % Neut # (Auto) 4.11 (1.40-6.50) K/uL Lymph # (Auto) 2.07 (1.20-3.40) K/uL Mcdonald # (Auto) 3.73 H (0.11-0.59) K/uL Eos # (Auto) 0.04 (0.00-0.50) K/uL Baso # (Auto) 0.01 (0.00-0.20) K/uL Immature Gran # (Auto) 0.02 (0.01-0.20) K/uL Absolute Nucleated RBC 0.03 (0.00-0.12) K/uL Nucleated RBC % (auto) 0.3 % Hypogranular Neuts 2+ ESR 6 (0-20) mm/hr PT 12.0 (9.0-12.0) Seconds INR 1.1 (0.9-1.1) APTT 97 H* (21-31) Seconds PTT Ratio 3.4 Sodium 137 (136-145) mmol/L Potassium 4.2 (3.5-5.1) mmol/L Chloride 106 (98-107) mmol/L Carbon Dioxide 23 (21-32) mmol/L Anion Gap 8 (3-11) BUN 26 H (6-23) mg/dl Creatinine 1.47 H (0.6-1.4) mg/dl Est Cr Clr Drug Dosing 40.5 ml/min Est GFR ( Amer) 53.7 ml/min Est GFR (Non-Af Amer) 46.3 ml/min BUN/Creatinine Ratio 17.7 (10-20) Glucose 98 (70-99(Fasting)) mg/dl Lactate 1.3 (0.4-2.0) mmol/L Calcium 8.8 (8.6-10.3) mg/dl Total Bilirubin 0.7 (0.2-1.0) mg/dl AST 14 (13-39) U/L ALT 10 (7-52) U/L Alkaline Phosphatase 67 (34-104) U/L C-Reactive Protein 5.20 H (0-0.5) mg/dl Total Protein 6.4 (6.0-8.3) gm/dl Albumin 4.1 (3.4-5.0) gm/dl Globulin 2.3 L (2.5-4.0) gm/dl Albumin/Globulin Ratio 1.8 (0.9-2) Procalcitonin 0.07 (0-0.5) ng/ml Administered Medications Discontinued Medications Hydromorphone HCl (Hydromorphone Inj 0.5 Mg/0.5 Ml Syr) 0.5 mg IV NOW STA Stop: 09/13/23 16:47 Last Admin: 09/13/23 16:52 Dose: 0.5 mg Documented By: DELGADO Cefepime HCl (Maxipime) 2,000 mg in 20 mls @ 5 mls/min IV NOW STA; Protocol Stop: 09/13/23 14:13 Last Admin: 09/13/23 16:09 Dose: 5 mls/min Documented By: QGV Sodium Chloride (Nss) 500 mls @ 999 mls/hr IV .Q31M ONE Stop: 09/13/23 14:40 Last Infusion: 09/13/23 16:40 Dose: Infused Documented By: Admin: 09/13/23 15:57 Dose: 999 mls/hr Documented By: QGV Morphine Sulfate (Morphine Sulfate 4 Mg/Ml 1 Ml Carp\Vial) 4 mg IV NOW STA Stop: 09/13/23 14:11 Last Admin: 09/13/23 15:56 Dose: 4 mg Documented By: QGV Ondansetron HCl (Ondansetron Inj 2 Mg/Ml 2 Ml Vial) 4 mg IV NOW STA Stop: 09/13/23 14:11 Last Admin: 09/13/23 15:56 Dose: 4 mg Documented By: QGV Imaging Data Radiologist's Impression: Lower Extremity CT 09/13/23 14:08 CT ankle RT wo con CLINICAL HISTORY: Possible osteomyelitis. COMPARISON STUDY: Right ankle radiographs August 03, 2010 and May 18, 2023. Right ankle CT August 03, 2010 TECHNIQUE: Axial images of the right ankle were obtained without IV contrast. Sagittal and coronal reconstructions were viewed. Automated exposure control was utilized for the study. A dose lowering technique was utilized adhering to the principles of ALARA. FINDINGS: Plate and screw fixation of distal right tibial and fibular fractures is noted. Hardware is intact. Healed fractures are present. No acute fracture is identified. Note is also made of a healed fracture of the anterior process of the right calcaneus. There is osteopenia. Right heel wound with associated bony erosion of the underlying posterior calcaneus. Erosion measures 2.6 x 2.2 cm. There is no soft tissue gas. No additional bony erosions within the right ankle/hindfoot are present. Right lower leg, ankle and foot soft tissue swelling is present. 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 IMPRESSION: 1. Right heel wound with a 2.6 x 2.2 cm focus of erosion of the adjacent posterior calcaneus consistent with acute osteomyelitis. 2. Status post right tibial and fibular internal fixation. Hardware intact. No acute fractures. 3. Osteopenia. ACT 112: Negative or not required by law. Electronically signed by: Alok Davenport M.D. 09/13/2023 3:15 PM Discharge Plan Visit Data Chief Complaint: Infection, Wound Stated Complaint: FOOT PAIN ED Provider: Richie Cerda Discharge Problem: Osteomyelitis, Anemia, Cellulitis, Failure of outpatient treatment Patient Disposition: Admitted As Inpatient Condition: Fair Forms Stand Alone Forms: My [facility] Prescriptions Prescriptions: No Action ascorbic acid (vitamin C) 500 mg capsule 500 mg PO DAILY zinc sulfate 50 mg zinc (220 mg) tablet 50 mg PO DAILY Cerovite Senior 0.4 mg-300 mcg- 250 mcg tablet 1 tab PO QAM Patient Comments: no currently taking hydrocodone-acetaminophen 7.5-325 mg tablet 1 tab PO Q6H PRN (Reason: Pain) Promacta 50 mg tablet 50 mg PO DAILY Rx Instructions: administer on an empty stomach, at least 1 hour before or 2 hours after food/meal(s) pantoprazole 40 mg Tablet,Delayed Release (Dr/Ec) 40 mg PO DAILY Ear Drops (carbamide peroxide) 6.5 % Drops 5 drp OTR BID PRN (Reason: earwax) Qty: 15 0RF Rx Instructions: Use twice a day up to 4 days as needed cyclobenzaprine 10 mg Tablet 10 mg PO BID Qty: 60 0RF atorvastatin 40 mg Tablet 40 mg PO QAM Qty: 30 0RF polyethylene glycol 3350 [Miralax] 17 gram Powder In Packet 17 g PO QAM PRN (Reason: Constipation) Qty: 14 0RF metoprolol tartrate [Lopressor] 50 mg tablet 50 mg PO BID Qty: 60 0RF albuterol sulfate 90 mcg/actuation Hfa Aerosol Inhaler 1 inh INHALATION QID PRN (Reason: sob) Qty: 6.7 0RF ondansetron 4 mg Tablet,Disintegrating 4 mg PO Q8H PRN (Reason: Nausea) Qty: 10 0RF megestrol 40 mg Tablet 40 mg PO QAM Qty: 30 0RF amiodarone 200 mg tablet 200 mg PO QAM Advanced Probiotic 625 mg (10 billion cell) Capsule 2 cap PO DAILY Qty: 60 0RF Referrals Referrals: [facility] [Primary Care Provider] - Discharge Problem: Osteomyelitis Qualifiers: Osteomyelitis type: unspecified type Osteomyelitis location: foot Laterality: r ight Qualified Code(s): M86.9 - Osteomyelitis, unspecified Anemia Qualifiers: Anemia type: unspecified type Qualified Code(s): D64.9 - Anemia, unspecified Cellulitis Qualifiers: Site of cellulitis: extremity Site of cellulitis of extremity: lower extremity Laterality: right Qualified Code(s): L03.115 - Cellulitis of right lower limb
[2023-09-13] MEDS ORDERED: VANCOMYCIN CONSULT ACTIVE PRN (15:02)
[2023-09-13] MEDS ORDERED: VANCOMYCIN HCL 1,750 MG in SODIUM CHLORIDE 0.9% 500 ML IV ONE (15:02)
--- NOTE | 2023-09-13 15:17 | CT Scan Report ---
CT ankle RT wo con CLINICAL HISTORY: Possible osteomyelitis. COMPARISON STUDY: Right ankle radiographs August 03, 2010 and May 18, 2023. Right ankle CT Novem 2009 TECHNIQUE: Axial images of the right ankle were obtained without IV contrast. Sagittal and coronal re constructions were viewed. Automated exposure control was utilized for the study. A dose lowering te chnique was utilized adhering to the principles of ALARA. FINDINGS: Plate and screw fixation of distal right tibial and fibular fractures is noted. Hardware is intact. Healed fractures are present. No acute fracture is identified. Note is also made of a healed fracture of the anterior process of the right calcaneus. There is osteopenia. Right heel wound with associated bony erosion of the underlying posterior calcaneus. Erosion measures 2.6 x 2.2 cm. There i s no soft tissue gas. No additional bony erosions within the right ankle/hindfoot are present. Right lower leg, ankle and foot soft tissue swelling is present. There is moderate osteoarthritis of the lind btalar joint. IMPRESSION: 1. Right heel wound with a 2.6 x 2.2 cm focus of erosion of the adjacent posterior calcaneus consiste nt with acute osteomyelitis. 2. Status post right tibial and fibular internal fixation. Hardware intact. No acute fractures. 3. Osteopenia. ACT 112: Negative or not required by law. Electronically signed by: Alok Davenport M.D. 09/13/2023 3:15 PM
[2023-09-13 15:55] LABS: Albumin Globulin Ratio 1.8 (0.9-2); Albumin Level 4.1 gm/dl (3.4-5.0); BUN Creatinine Ratio 17.7 (10-20); Bilirubin,Total 0.7 mg/dl (0.2-1.0); C Reactive Protein 5.2 mg/dl (0-0.5); Calcium 8.8 mg/dl (8.6-10.3); Creatinine Clr Calc Pharmacy 40.5 ml/min; Est GFR (African American) 53.7 ml/min; Est GFR (Non-African American) 46.3 ml/min; Globulin 2.3 gm/dl (2.5-4.0); Potassium 4.2 mmol/L (3.5-5.1); Total Protein 6.4 gm/dl (6.0-8.3)
[2023-09-13 15:57] LABS: Hematocrit (blood only) 30.9 % (42.0-52.0); Hemoglobin 9.4 g/dl (14.0-18.0); Mean Corpuscular Hemoglobin 27.2 pg (25.0-34.0); Mean Corpuscular Hgb Conc 30.4 g/dL (32.0-36.0); Mean Corpuscular Volume 89.6 fL (80.0-100.0); Platelet Count 149 K/uL (130-400); RDW Coefficient of Variation 24.4 % (11.5-14.5); RDW Standard Deviation 78.9 fL (36.4-46.3); Red Blood Count 3.45 M/uL (4.70-6.10)
[2023-09-13 16:19] LABS: INR 1.1 (0.9-1.1); Partial Thromboplastin Ratio 3.4
[2023-09-13 16:26] LABS: Partial Thromboplastin Time 97 Seconds (21-31)
[2023-09-13 16:35] LABS: White Blood Count 9.98 K/ul (4.8-10.8)
[2023-09-13 16:36] LABS: Basophils # (auto) 0.01 K/uL (0.00-0.20); Basophils % (auto) 0.1 %; Eosinophils # (auto) 0.04 K/uL (0.00-0.50); Eosinophils % (auto) 0.4 %; Hypogranular Neutrophils 2+; Immature Granulocytes # (auto) 0.02 K/uL (0.01-0.20); Immature Granulocytes % (auto) 0.2 %; Lymphocytes # (auto) 2.07 K/uL (1.20-3.40); Lymphocytes % (auto) 20.7 %; Monocytes # (auto) 3.73 K/uL (0.11-0.59); Monocytes % (auto) 37.4 %; Neutrophils # (auto) 4.11 K/uL (1.40-6.50); Neutrophils % (auto) 41.2 %; Nucleated RBC # (auto) 0.03 K/uL (0.00-0.12); Nucleated RBC % (auto) 0.3 %
[2023-09-13] MEDS ORDERED: HYDROmorphone INJ 0.5 MG/0.5 ML SYR IV STA (16:46)
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
--- NOTE | 2023-09-13 18:30 | Ultrasound Report ---
US venous doppler LE BI CLINICAL HISTORY: edema TECHNIQUE: Bilateral lower extremity real-time compression venous ultrasound with Color Doppler imagi ng. Utilizing real-time ultrasonic imaging multiple real time high-resolution ultrasonic images with compression and noncompression maneuvers of the deep venous system in addition to color doppler imagi ng were performed from the common femoral vein through the proximal calf veins. COMPARISON: Comparison is made to Doppler ultrasound 10/18/2022 FINDINGS/IMPRESSION: Currently there is normal compressibility of the deep venous system from the common femoral vein thro ugh the proximal calf veins. No superficial venous thrombosis is identified. ACT 112: Negative or not required by law. Electronically signed by: Kvng Delatorre M.D. 09/13/2023 6:28 PM
[2023-09-13] MEDS ORDERED: POLYETHYLENE (MIRALAX) 17 GM PACK PO PRN (20:06)
[2023-09-13] MEDS ORDERED: ALBUTEROL HFA 8 GM INHALER INH PRN (20:06)
[2023-09-13] MEDS ORDERED: ONDANSETRON INJ 2 MG/ML 2 ML VIAL IV PRN (20:06)
[2023-09-13] MEDS ORDERED: ALUMINUM/MAGNESIUM SUSP 30 ML UDC PO PRN (20:06)
[2023-09-13] MEDS ORDERED: CYCLOBENZAPRINE HCL 10 MG TAB PO PRN (20:06)
[2023-09-13] MEDS ORDERED: ACETAMINOPHEN 325 MG TAB PO PRN (20:06)
[2023-09-13] MEDS ORDERED: MAGNESIUM HYDROXIDE SUSP 30 ML UDC PO PRN (20:06)
[2023-09-13] MEDS: METOPROLOL TARTRATE 50 MG TAB PO SCH (21:07)
[2023-09-13] MEDS: HYDROCODONE/ACETAMINOPHEN 7.5/325MG TAB PO PRN (21:12)
[2023-09-14] MEDS ORDERED: SODIUM CHLORIDE 0.9% 1,000 ML IV SCH
[2023-09-14] MEDS: CEFEPIME 2,000 MG in SYRINGE 0 ML IV SCH ×3 (04:26→19:40)
[2023-09-14 07:36] LABS: Basophils # (auto) 0.01 K/uL (0.00-0.20); Basophils % (auto) 0.1 %; Eosinophils # (auto) 0.03 K/uL (0.00-0.50); Eosinophils % (auto) 0.4 %; Hemoglobin 8.4 g/dl (14.0-18.0); Immature Granulocytes # (auto) 0.01 K/uL (0.01-0.20); Immature Granulocytes % (auto) 0.1 %; Lymphocytes # (auto) 1.91 K/uL (1.20-3.40); Lymphocytes % (auto) 24.3 %; Monocytes # (auto) 3.26 K/uL (0.11-0.59); Monocytes % (auto) 41.5 %; Neutrophils # (auto) 2.63 K/uL (1.40-6.50); Neutrophils % (auto) 33.6 %; Platelet Count 125 K/uL (130-400); Polychromasia 2+; RDW Coefficient of Variation 24.1 % (11.5-14.5); Red Blood Count 3.11 M/uL (4.70-6.10); Schistocytes 1+; White Blood Count 7.85 K/ul (4.8-10.8)
[2023-09-14 07:38] LABS: Albumin Globulin Ratio 1.8 (0.9-2); Albumin Level 3.6 gm/dl (3.4-5.0); BUN Creatinine Ratio 17.6 (10-20); Bilirubin,Total 0.6 mg/dl (0.2-1.0); Calcium 8.3 mg/dl (8.6-10.3); Creatinine Clr Calc Pharmacy 43.6 ml/min; Est GFR (Non-African American) 48.3 ml/min; Magnesium 2.1 mg/dl (1.7-2.4); Potassium 4.5 mmol/L (3.5-5.1); Total Protein 5.6 gm/dl (6.0-8.3)
[2023-09-14] MEDS: METOPROLOL TARTRATE 50 MG TAB PO SCH ×2 (09:09→19:39)
[2023-09-14] MEDS: AMIODARONE 200 MG TAB PO SCH (09:09)
[2023-09-14] MEDS: ADVANCED PROBIOTIC 1250 MG CAPSULE PO SCH (09:09)
[2023-09-14] MEDS: ATORVASTATIN 40 MG TAB PO SCH (09:09)
[2023-09-14] MEDS: PANTOprazole 40 MG TAB PO SCH (09:09)
[2023-09-14] MEDS: VANCOMYCIN HCL 1,000 MG in SODIUM CHLORIDE 0.9% 250 ML IV SCH (09:10)
[2023-09-14] MEDS: POLYETHYLENE (MIRALAX) 17 GM PACK PO SCH (09:10)
[2023-09-14] MEDS: MEGESTROL ACETATE 40 MG TAB PO SCH (09:30)
--- NOTE | 2023-09-14 09:55 | Hospitalist Progress Note ---
Date of Service September 14, 2023 Assessment & Plan (1) Osteomyelitis: (2) Wound of right ankle: (3) B-cell lymphoma: (4) Tachy-boris syndrome: Plan 73-year-old man with B-cell diffuse large B-cell lymphoma, CML, Thrombocytopenia, 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 Mccormick for right lateral malleolus foot wound. Being managed for right foot osteomyelitis. Right foot Osteomyelitis Wound of R lateral malleolus PAD Reviewed EKG. Sinus CBC showed Hb of 8.4, was 9.4 yesterday No obvious bleeding. [facility] noted right heel wound 2.6x2.2 cm focus of erosion of adjacent posterior calcaneus consistent with acute osteomyelitis, s/p right tibial and fibular internal fixation. hardware intact Continue vanc and cefepime He is currently NPO with plan for OR today. Will follow up OR Venous doppler is negative for thrombosis Will follow up infectious workup Patient report he will be leaving in 2 days. I explained that depending on the outcome of surgery and infectious workup, results may not be out in that time for final plans/dc. Will likely need ID consult after more results Continue statin Diffuse B Cell Lymphoma of head/neck:s/p 1 cycle of RCEOP (11/18/22 - 11/21/22) Chronic myelomonocytic leukemia: Chronic Thrombocytopenia: Transfusion reaction to platelets transfusion: Follows with DR. Rojas received chemo/XRT Recent pet scan showed spot on tonsill, this was evaled by ENT and determined not to be cancerous He is on eltrombopag PAF Continue amiodarone/metoprolol Hx of severe protein calorie malnutrition Continue megace H/O dysphagia Minced moist diet from previous admission, after OR Tobacco abuse COPD Counseled on smoking cessation. Stated he is not interested in quitting Prn albuterol DVT ppx: none for now due to planned procedure Will plan for pharmacological prophylaxis as soon as able with monitoring platelet DNR/DNI PCP: [place] Dispo: [facility] [employer] I spent a total of 55 minutes coordinating, documenting and providing care for this patient excluding time spent in performance of separately billed services Admission and Anticipated Discharge Date Admission Date: September 13, 2023 Subjective 73-year-old man with B-cell diffuse large B-cell lymphoma, CML, Thrombocytopenia, symptomatic SVT Jose syndrome status post pacemaker placement, abdominal aortic failure, STEMI, paroxysmal A-fib on amiodarone hip fracture status post IM nailing presented from podiatry office for right lateral malleolar foot wound. Being managed for right foot osteomyelitis. Patient seen and examined. Reports right foot pain, especially show malleolar wound Reports he has had wounds on both feet for months but right malleolar wound recently started draining Denied fevers, chills, nausea, vomiting Denies chest pain, cough, shortness of breath Denies abdominal pain, diarrhea, constipation, nausea or vomiting. Denies dysuria, frequency urgency Physical Exam Constitutional: + well hydrated; no acute distress Eyes: PERRL, conjunctivae normal, anicteric sclerae ENMT: external ear and nose normal, oropharynx normal Respiratory: normal respiratory effort, lungs clear to auscultation Cardiovascular: Rate/Rhythm: regular rate and regular rhythm S1 S2 Gastrointestinal (Abdomen): normal bowel sounds, soft, nontender, no hepatosplenomegaly Musculoskeletal: Right leg edema. Lateral malleolar wound on right leg with tenderness and erythema around.Also right heel wound. Left leg has no edema but has a wound on left heel, covered with scab with surrounding tenderness Neurologic: PERRL, EOMI, accommodation nl, no face palsy, no dysarthria Psychiatric: A+Ox3, euthymic affect Results & Data Results & Data Vital Signs (Past 12 Hours) Vital Signs Temp Pulse Pulse Resp BP Pulse Ox O2 Del Method 09/14/23 07:47 36.4 C L 71 16 117/67 96 Nasal Cannula 09/14/23 07:15 67 09/14/23 03:16 36.6 C 71 18 121/64 97 Nasal Cannula 09/14/23 00:05 92 Room Air 09/13/23 23:31 36.3 C L 71 18 128/71 97 Nasal Cannula 09/13/23 22:17 71 O2 Flow Rate 09/14/23 07:47 2.5 09/14/23 07:15 09/14/23 03:16 2 09/14/23 00:05 09/13/23 23:31 2 09/13/23 22:17 Laboratory Results Abnormal lab results 12/19/23 12/20/23 Range/Units 15:02 06:25 RBC 3.45 L 3.11 L (4.70-6.10) M/uL Hgb 9.4 L 8.4 L (14.0-18.0) g/dl Hct 30.9 L 28.0 L (42.0-52.0) % MCHC 30.4 L 30.0 L (32.0-36.0) g/dL RDW Std Deviation 78.9 H 78.0 H (36.4-46.3) fL RDW Coeff of Efren 24.4 H 24.1 H (11.5-14.5) % Plt Count 125 L (130-400) K/uL [place]olls # (Auto) 3.73 H 3.26 H (0.11-0.59) K/uL APTT 97 H* (21-31) Seconds Chloride 110 H (98-107) mmol/L BUN 26 H 25 H (6-23) mg/dl Creatinine 1.47 H 1.42 H (0.6-1.4) mg/dl Calcium 8.3 L (8.6-10.3) mg/dl AST 12 L (13-39) U/L C-Reactive Protein 5.20 H (0-0.5) mg/dl Total Protein 5.6 L (6.0-8.3) gm/dl Globulin 2.3 L 2.0 L (2.5-4.0) gm/dl (1) Osteomyelitis Laterality: right Osteomyelitis location: foot Osteomyelitis type: unspecified type Qualified Code(s): M86.9 - Osteomyelitis, unspecified
[2023-09-14] MEDS: HYDROCODONE/ACETAMINOPHEN 7.5/325MG TAB PO PRN ×2 (10:20→19:41)
--- NOTE | 2023-09-14 10:30 | Pharmacy Report ---
Pharmacy PK ABX Note - Date of Service September 14, 2023 - Assessment and Plan Assessment 73 year old M started on vancomycin and cefepime for concerns for osteomyelitis on CT of ankle. Planning for OR today for removal of R ankle hardware. Blood cultures pending. Patient with hx of B cell lymphoma, previous admission in April for bilateral infected foot ulcers where he underwent debridement and treated with abx's x 6 weeks per notes. Day #2 of antimicrobial therapy. Plan Vancomycin * Loading dose: 1750 mg given 09/13 pm * Started on vancomycin 1000 mg iv q 24 hours - this dosing is associated with EBONY/AUC 400-600 * Plan to obtain vancomycin random level tomorrow AM to assess appropriateness of dosing Pharmacy will continue to follow and will adjust dose/frequency as necessary. Thank you. Pharmacy has transitioned to AUC monitoring for vancomycin. AUC/EBONY is the preferred PK/PD target and is associated with decreased risk of nephrotoxicity compared to traditional trough targets.
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
[2023-09-14 12:47] LABS: Giant Platelets 1+
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
[2023-09-14] MEDS ORDERED: ONDANSETRON INJ 2 MG/ML 2 ML VIAL ONE (15:17)
[2023-09-14] MEDS ORDERED: fentaNYL citrate PF 100 MCG/2 ML VIAL ONE (15:17)
[2023-09-14] MEDS ORDERED: PROPOFOL IV EMULSION 10 MG/ML 20 ML VIAL IV ONE ×3 (15:17→17:09)
[2023-09-14] MEDS ORDERED: LIDOCAINE 2% 2 ML VIAL/AMP(20MG/ML) INFIL ONE (15:17)
[2023-09-14] MEDS ORDERED: HYDROmorphone INJ 1 MG/ML SYRINGE IV PRN (15:40)
[2023-09-14] MEDS ORDERED: ePHEDrine sulfate 50 MG/ML AMP IV PRN (15:40)
[2023-09-14] MEDS ORDERED: ONDANSETRON INJ 2 MG/ML 2 ML VIAL IV PRN (15:40)
[2023-09-14] MEDS ORDERED: ATROPINE SULFATE 0.1 MG/ML 10ML SYR IV PRN (15:40)
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
--- NOTE | 2023-09-14 16:23 | History & Physical Bridge Note ---
Date of Service September 14, 2023 History & Physical Bridge Note I have examined the patient, reviewed the History & Physical and in the interval since the performance of the History & Physical I have noted the following changes of clinical significance: no changes noted
[2023-09-14] MEDS ORDERED: PHENYLEPHRINE 100MCG/ML 10ML SYR IV ONE (16:49)
--- NOTE | 2023-09-14 17:46 | Post Operative Brief Note ---
Immediate Post Op Note v1 Date of Surgery September 14, 2023 Pre & Post Diagnosis Operation Date: 09/14/23 08:50 <No data on this case meets the specified criteria> I identified the patient and participated in the time-out.: Yes Procedure Operation Date: 09/14/23 08:50 <No data on this case meets the specified criteria> Surgeon Rajinder Mccormick, DANIKA, MS 411 Directory Assistance Operator None Estimated Blood Loss 10 Findings Consistent with Post-Op Diagnosis Specimens Deep wound culture left ankle Orthopedic hardware left ankle
[2023-09-14] MEDS: fentaNYL citrate PF 100 MCG/2 ML VIAL IV PRN ×4 (18:03→18:18)
--- NOTE | 2023-09-14 18:15 | Fluoroscopy Report ---
FL ankle RT 2V CLINICAL HISTORY: RIGHT ANKLE HARDWARE REMOVAL. MINI C-ARM TECHNIQUE: 2 views were obtained with the C-arm in the OR with the above procedure. Total fluoroscopy time was 1.72 seconds. Radiation dose was 0.066 mGy. Comparison: Comparison is made to CT right ankle 09/13/2023 FINDINGS/IMPRESSION: Intraoperative images were obtained of the right ankle hardware removal. Please correlate with intraoperative fluoroscopy and operative report. ACT 112: Negative or not required by law. Electronically signed by: Kvng Delatorre M.D. 09/14/2023 6:14 PM
--- NOTE | 2023-09-14 18:23 | Anesthesiology Progress Note ---
Date of Service September 14, 2023 Anesthesia Post Procedure Vital Signs Vital Signs: Temp Pulse Pulse Resp BP BP Pulse Ox 09/14/23 18:20 61 12 117/69 93 09/14/23 18:10 60 19 106/83 100 09/14/23 18:00 62 13 120/80 99 09/14/23 17:52 36.1 C L 62 17 116/57 L 100 09/14/23 15:40 37 C 82 20 147/80 H 97 09/14/23 11:39 36.3 C L 65 16 108/64 90 09/14/23 10:47 09/14/23 07:47 36.4 C L 71 16 117/67 96 09/14/23 07:15 67 09/14/23 03:16 36.6 C 71 18 121/64 97 09/14/23 00:05 92 09/13/23 23:31 36.3 C L 71 18 128/71 97 09/13/23 22:17 71 09/13/23 20:41 86 09/13/23 20:00 09/13/23 20:00 36.3 C L 85 18 132/75 96 O2 Del Method O2 Flow Rate 09/14/23 18:20 Nasal Cannula 2 09/14/23 18:10 Oxymask 5 09/14/23 18:00 Oxymask 5 09/14/23 17:52 Oxymask 5 09/14/23 15:40 Room Air 09/14/23 11:39 Room Air 09/14/23 10:47 Room Air 09/14/23 07:47 Nasal Cannula 2.5 09/14/23 07:15 09/14/23 03:16 Nasal Cannula 2 09/14/23 00:05 Room Air 09/13/23 23:31 Nasal Cannula 2 09/13/23 22:17 09/13/23 20:41 09/13/23 20:00 Nasal Cannula 2 09/13/23 20:00 Nasal Cannula 2 Pain Intensity Right Ankle: Pain Intensity: 6 Right Knee: Pain Intensity: 8 Transfer of Care Handoff Completed per policy Notes Mental Status: alert / awake / arousable and participated in evaluation Patient Amnestic to Procedure: Yes Nausea / Vomiting: adequately controlled Pain: adequately controlled Airway Patency, RR, SpO2: stable & adequate BP & HR: stable & adequate Hydration State: stable & adequate Anesthetic Complications: no major complications apparent and Pt Satisfied with anesthetic care
[2023-09-14] MEDS: HYDROmorphone INJ 0.5 MG/0.5 ML SYR IV PRN (21:08)
--- NOTE | 2023-09-14 21:25 | Operative Report ---
Post Operative Report Pre & Post Diagnosis Operation Date: 09/14/23 08:50 Pre-Op Diagnosis: Infection associated with internal fixation device of right tibia Post-Op Diagnosis: Infection associated with internal fixation device of right tibia I identified the patient and participated in the time-out.: Yes Procedure Operation Date: 09/14/23 08:50 Actual Procedures p Right Ankle Hardware Removal(Right) - Rajinder Mccormick DPM, MS Surgeon Rajinder Mccormick DPM, MS Warehouse Puller None Estimated Blood Loss 10 Findings Consistent with Post-Op Diagnosis Consistent with pre operative diagnosis Specimens Deep culture right ankle - microbiology Retained orthopedic hardware - microbiology Description of Procedure History of present illness; Patient is a 73 year old male seen for right ankle cellulitis with exposed retained orthopedic hardware. Patient requires explant of hardware right ankle at today's visit.Reviewed postoperative care.All questions answered. All potential risks, benefits, complications, alternatives, rehab, potential for incomplete relief of symptoms, need for further surgery, DVT, PE, , persistent pain, swelling, scarring, weakness, neurovascular, wound complications and potential for amputations were discussed with patient. Unwanted outcomes such as, but not limited to were reviewed including under correction, overcorrection, return of deformity, infection.All questions were answered.Patient has decided to proceed with procedure as indicated. Preoperative diagnosis: 1.) Right ankle cellulitis 2.) Right ankle ulcer 3.) Exposed Retained hardware right ankle. Postoperative diagnosis: Same Name of operation: 1.) Excision of wound Right Ankle 2.) Right ankle explant of retained hardware Surgeon: Dr. Mccormick Warehouse Puller: None Anesthesia: Local with monitored anesthesia care Estimated blood loss: Minimal Procedure in detail: Under mild sedation the patient was brought in the operating room placed on the operating table in supine position. A Pneumatic calf tourniquet was then placed about the patient's right lower extremity. Following IV sedation the ankle was then prepped, scrubbed, and draped, in the usual aseptic manner. An Esmarch bandage utilized examining the patient's right foot and ankle and the pneumatic calf tourniquet was inflated. Attention was directed to a lateral distal fibula wound with exposed plate and screws. The lateral ankle wound measured roughly 1 x 1 x 0.3cm. Utilizing a sharp, sterile, 15 blade, the wound was excised down to the exposed retained hardware. The wound and surrounding wound tissue was removed and placed on the back table. Next an incision was placed over cicatrix from previous surgical at the right lateral ankle. The incision was deepened through subcutaneous tissue using sharp and blunt dissection care was taken to identify and retract all vital neurovascular structures. All bleeders were ligated and cauterized as necessary. Upon visualization of the retained hardware, the screws and plate were retrieved in toto with mule driver and placed on the back table. Directly exposed hardware to wound was sent to microbiology for culture and sensativities. A deep swab was also taken and sent to microbiology. At this time intraoperative fluoroscopy was utilized to take final film. Copious amounts of sterile lactate ringer under low flow was utilized to flush the wound. The deep structures were coapted utilizing 3-0 PDS and the skin was reapproximated coapted utilizing horizontal suture technique with 4-0 nylon. The pneumatic calf tourniquet was deflated and a prompt hyperemic response was noted to all digits of the right foot. The Patient tolerated procedure and anesthesia well. He was transferred to recovery room with vital signs stable. Following a period of Postoperative monitoring the patient will be re-admitted to the floor resuming all pre op erative orders. I attest to the content of the Intraoperative Record and any orders documented therein. Any exceptions are noted below.
[2023-09-15] MEDS: HYDROmorphone INJ 0.5 MG/0.5 ML SYR IV PRN ×4 (01:00→20:15)
[2023-09-15] MEDS: ELTROMBOPAG OLAMINE PO SCH (05:58)
[2023-09-15 07:18] LABS: BUN Creatinine Ratio 16.7 (10-20); C Reactive Protein 4.32 mg/dl (0-0.5); Calcium 8.4 mg/dl (8.6-10.3); Creatinine Clr Calc Pharmacy 41.4 ml/min; Est GFR (African American) 52.4 ml/min; Est GFR (Non-African American) 45.2 ml/min; Hematocrit (blood only) 27.3 % (42.0-52.0); Hemoglobin 8.3 g/dl (14.0-18.0); Mean Corpuscular Hemoglobin 27.2 pg (25.0-34.0); Mean Corpuscular Hgb Conc 30.4 g/dL (32.0-36.0); Mean Corpuscular Volume 89.5 fL (80.0-100.0); Nucleated RBC # (auto) 0.02 K/uL (0.00-0.12); Nucleated RBC % (auto) 0.2 %; Platelet Count 131 K/uL (130-400); Potassium 4.3 mmol/L (3.5-5.1); RDW Coefficient of Variation 24.1 % (11.5-14.5); RDW Standard Deviation 78.4 fL (36.4-46.3); Red Blood Count 3.05 M/uL (4.70-6.10); White Blood Count 9.04 K/ul (4.8-10.8)
[2023-09-15] MEDS: METOPROLOL TARTRATE 50 MG TAB PO SCH ×2 (09:20→20:17)
[2023-09-15] MEDS: ATORVASTATIN 40 MG TAB PO SCH (09:21)
[2023-09-15] MEDS: PANTOprazole 40 MG TAB PO SCH (09:21)
[2023-09-15] MEDS: ADVANCED PROBIOTIC 1250 MG CAPSULE PO SCH (09:21)
[2023-09-15] MEDS: AMIODARONE 200 MG TAB PO SCH (09:21)
[2023-09-15] MEDS: CEFEPIME 2,000 MG in SYRINGE 0 ML IV SCH ×2 (09:22→20:16)
[2023-09-15] MEDS: POLYETHYLENE (MIRALAX) 17 GM PACK PO SCH (09:22)
[2023-09-15] MEDS: MEGESTROL ACETATE 40 MG TAB PO SCH (09:22)
[2023-09-15] MEDS: VANCOMYCIN HCL 1,000 MG in SODIUM CHLORIDE 0.9% 250 ML IV SCH (09:27)
[2023-09-15] MEDS: HYDROCODONE/ACETAMINOPHEN 7.5/325MG TAB PO PRN ×2 (09:32→19:22)
--- NOTE | 2023-09-15 09:55 | Hospitalist Progress Note ---
Date of Service September 15, 2023 Assessment & Plan (1) Osteomyelitis: (2) Wound of right ankle: (3) B-cell lymphoma: (4) Tachy-boris syndrome: Plan 73-year-old man with B-cell diffuse large B-cell lymphoma, CML, Thrombocytopenia, 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 Mccormick for right lateral malleolus foot wound. Being managed for right foot osteomyelitis. Right foot Osteomyelitis Wound of R lateral malleolus Infection associated with internal fixation device of right tibia PAD LE CT noted right heel wound 2.6x2.2 cm focus of erosion of adjacent posterior calcaneus consistent with acute osteomyelitis, s/p right tibial and fibular internal fixation. hardware intact S/P Right Ankle Hardware Removal(Right) and Excision of wound right ankle POD 1 CBC showed Hb of 8.3 today Continue to monitor ID recs noted Continue vanc and cefepime until culture results Follow up OR cultures Venous doppler is negative for thrombosis Continue statin Diffuse B Cell Lymphoma of head/neck:s/p 1 cycle of RCEOP (11/18/22 - 11/21/22) Chronic myelomonocytic leukemia: Chronic Thrombocytopenia: Transfusion reaction to platelets transfusion: Follows with DR. Rojas received chemo/XRT Recent pet scan showed spot on tonsill, this was evaled by ENT and determined not to be cancerous He is on eltrombopag PAF Continue amiodarone/metoprolol Hx of severe protein calorie malnutrition Continue megace H/O dysphagia Insists on regular diet, not minced/moist or heart healthy Diet changed per patient's wishes Aspiration precautions Tobacco abuse COPD Had counseled on smoking cessation. Stated he is not interested in quitting Prn albuterol DVT ppx: Plan for pharm DVT ppx once ok with surgeon DNR/DNI PCP: [place] Dispo: Med tele I spent a total of 45 minutes coordinating, documenting and providing care for this patient excluding time spent in performance of separately billed services Admission and Anticipated Discharge Date Admission Date: September 13, 2023 Subjective 73-year-old man with B-cell diffuse large B-cell lymphoma, CML, Thrombocytopenia, symptomatic SVT Jose syndrome status post pacemaker placement, abdominal aortic failure, STEMI, paroxysmal A-fib on amiodarone hip fracture status post IM nailing presented from podiatry office for right lateral malleolar foot wound. Being managed for right foot osteomyelitis/Infection associated with internal fixation device of right tibia S/P Right Ankle Hardware Removal(Right) and Excision of wound right ankle Patient seen and examined. Reports surgical site wound is controlled Reports chronic left heel wound Denied fevers, chills, nausea, vomiting Denies chest pain, cough, shortness of breath Denies abdominal pain, diarrhea, constipation, nausea or vomiting. Denies dysuria, frequency urgency Physical Exam Constitutional: + well hydrated; no acute distress Eyes: PERRL, conjunctivae normal, anicteric sclerae ENMT: external ear and nose normal, oropharynx normal Respiratory: normal respiratory effort, lungs clear to auscultation Cardiovascular: Rate/Rhythm: regular rate and regular rhythm S1 S2 Gastrointestinal (Abdomen): normal bowel sounds, soft, nontender, no hepatosplenomegaly Musculoskeletal: Right foot bandaged Left leg has no edema but has a wound on left heel, covered with scab with surrounding tenderness Neurologic: PERRL, EOMI, accommodation nl, no face palsy, no dysarthria Psychiatric: A+Ox3, euthymic affect Results & Data Results & Data Vital Signs (Past 12 Hours) Vital Signs Temp Pulse Pulse Resp BP BP Pulse Ox 09/15/23 08:13 92 09/15/23 07:52 36.5 C 77 16 117/57 L 95 09/15/23 07:30 68 09/15/23 04:02 36.5 C 77 18 122/69 97 09/15/23 00:56 70 102/59 L 09/14/23 23:28 36.6 C 72 16 92/59 L 92 09/14/23 22:00 72 O2 Del Method O2 Flow Rate 09/15/23 08:13 Room Air 09/15/23 07:52 Room Air, Nasal Cannula 3 09/15/23 07:30 09/15/23 04:02 Room Air 09/15/23 00:56 09/14/23 23:28 Nasal Cannula 2 09/14/23 22:00 Laboratory Results Abnormal lab results 09/15/23 Range/Units 06:10 RBC 3.05 L (4.70-6.10) M/uL Hgb 8.3 L (14.0-18.0) g/dl Hct 27.3 L (42.0-52.0) % MCHC 30.4 L (32.0-36.0) g/dL RDW Std Deviation 78.4 H (36.4-46.3) fL RDW Coeff of Efren 24.1 H (11.5-14.5) % Chloride 109 H (98-107) mmol/L BUN 25 H (6-23) mg/dl Creatinine 1.50 H (0.6-1.4) mg/dl Calcium 8.4 L (8.6-10.3) mg/dl C-Reactive Protein 4.32 H (0-0.5) mg/dl (1) Osteomyelitis Laterality: right Osteomyelitis location: foot Osteomyelitis type: unspecif ied type Qualified Code(s): M86.9 - Osteomyelitis, unspecified (2) Wound of right ankle Encounter type: initial encounter Qualified Code(s): S91.001A - Unspecified open wound, right ankle, initial encounter
--- NOTE | 2023-09-15 21:09 | Orthopedic Progress Note ---
Date of Service September 15, 2023 Assessment & Plan (1) Infection associated with internal fixation device of right tibia: Plan: Patient seen and examined in 284-1. Patient status post day #1 right ankle excision of wound and explant of retained exposed orthopedic hardware DOS:09/14/23. Patient seen with present who helps with history and care. Patient has no complaints. Wound culture in office on 09/13/23 shows Group B Streptococci (S. agalactiae) & CORYNEBACTERIUM STRIATUM. Awaiting OR cultures. Dry, sterile, dressing changed with out incident. Continue to off load right heel with waffle boot. No further surgical care anticipated. Will continue to follow while in house. (2) Wound of right ankle: (3) Failure of outpatient treatment: (4) Cellulitis: (5) Anemia: (6) Osteomyelitis: Admission and Anticipated Discharge Date Admission Date: September 13, 2023 Subjective Patient seen and examined in 284-1. Patient status post day #1 right ankle excision of wound and explant of retained exposed orthopedic hardware DOS:09/14/23. Patient seen with present who helps with history and care. Patient has no complaints. Wound culture in office on 09/13/23 shows Group B Streptococci (S. agalactiae) & CORYNEBACTERIUM STRIATUM. Awaiting OR cultures. Physical Exam Constitutional: + frail appearing, cooperative and comfo rtable Eyes: normal visual palomo by confrontation Neck: normal visual inspection Respiratory: normal respiratory effort Cardiovascular: Rate/Rhythm: regular rate and regular rhythm Vessels: posterior tibial pulses present and dorsalis pedis pulses present Skin: + ulcer (Right lateral heel, Right ankle with exposed hardware) Neurologic: moves all extremities (Absent epicritic sensation) Psychiatric: Orientation: alert and oriented x 3 Results & Data Vital Signs (Past 12 Hours) Vital Signs Temp Pulse Pulse Resp BP Pulse Ox O2 Del Method 09/15/23 19:46 36.6 C 69 17 106/65 96 Nasal Cannula 09/15/23 16:02 36.9 C 66 16 119/68 95 Nasal Cannula 09/15/23 16:01 63 09/15/23 12:04 36.5 C 78 16 124/70 97 Nasal Cannula 09/15/23 11:00 Nasal Cannula O2 Flow Rate 09/15/23 19:46 3 09/15/23 16:02 3 09/15/23 16:01 09/15/23 12:04 3 09/15/23 11:00 3 (1) Infection associated with internal fixation device of right tibia Encounter type: initial encounter Qualified Code(s): T84.622A - Infection and inflammatory reaction due to internal fixation device of right tibia, initial encounter (2) Wound of right ankle Encounter type: initial encounter Qualified Code(s): S91.001A - Unspecified open wound, right ankle, initial encounter (4) Cellulitis Laterality: right Site of cellulitis: extremity Site of cellulitis of extremity: lower extremity Qualified Code(s): L03.115 - Cellulitis of right lower limb (5) Anemia Anemia type: unspecified type Qualified Code(s): D64.9 - Anemia, unspecified (6) Osteomyelitis Laterality: right Osteomyelitis location: foot Osteomyelitis type: unspecified type Qualified Code(s): M86.9 - Osteomyelitis, unspecified
[2023-09-16] MEDS: HYDROCODONE/ACETAMINOPHEN 7.5/325MG TAB PO PRN ×3 (03:14→15:42)
[2023-09-16] MEDS: HYDROmorphone INJ 0.5 MG/0.5 ML SYR IV PRN ×4 (03:59→21:03)
[2023-09-16] MEDS: ELTROMBOPAG OLAMINE PO SCH (05:52)
[2023-09-16 06:57] LABS: BUN Creatinine Ratio 14.3 (10-20); Calcium 8.6 mg/dl (8.6-10.3); Creatinine Clr Calc Pharmacy 38.4 ml/min; Est GFR (African American) 48.1 ml/min; Est GFR (Non-African American) 41.5 ml/min; Magnesium 2.1 mg/dl (1.7-2.4); Phosphorus 3.9 mg/dl (2.5-4.9)
[2023-09-16 07:29] LABS: Hematocrit (blood only) 26.1 % (42.0-52.0); Hemoglobin 8.1 g/dl (14.0-18.0); Mean Corpuscular Hemoglobin 26.9 pg (25.0-34.0); Mean Corpuscular Volume 86.7 fL (80.0-100.0); Nucleated RBC # (auto) 0.02 K/uL (0.00-0.12); Nucleated RBC % (auto) 0.2 %; Platelet Count 127 K/uL (130-400); RDW Standard Deviation 75.6 fL (36.4-46.3); Red Blood Count 3.01 M/uL (4.70-6.10); White Blood Count 10.92 K/ul (4.8-10.8)
[2023-09-16] MEDS: METOPROLOL TARTRATE 50 MG TAB PO SCH ×2 (08:51→21:07)
[2023-09-16] MEDS: PANTOprazole 40 MG TAB PO SCH (08:51)
[2023-09-16] MEDS: AMIODARONE 200 MG TAB PO SCH (08:51)
[2023-09-16] MEDS: ATORVASTATIN 40 MG TAB PO SCH (08:51)
[2023-09-16] MEDS: CEFEPIME 2,000 MG in SYRINGE 0 ML IV SCH ×2 (08:51→21:03)
[2023-09-16] MEDS: MEGESTROL ACETATE 40 MG TAB PO SCH (08:51)
[2023-09-16] MEDS: ADVANCED PROBIOTIC 1250 MG CAPSULE PO SCH (08:51)
[2023-09-16] MEDS: POLYETHYLENE (MIRALAX) 17 GM PACK PO SCH (08:59)
--- NOTE | 2023-09-16 09:23 | Hospitalist Progress Note ---
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 Mccormick for right lateral malleolus foot wound. Being managed for right foot osteomyelitis. Right foot Osteomyelitis Wound of R lateral malleolus Infection associated with internal fixation device of right tibia PAD LE CT noted right heel wound 2.6x2.2 cm focus of erosion of adjacent posterior calcaneus consistent with acute osteomyelitis, s/p right tibial and fibular internal fixation. hardware intact S/P Right Ankle Hardware Removal(Right) and Excision of wound right ankle POD 2 CBC showed Hb of 8.1 today Continue to monitor ID recs noted Currently on vanc and cefepime Wound culture from 09/13/23 growing Grp B strep OR cultures from 09/14/23 growing Corynebacterium Will follow up with ID about recommendations Venous doppler is negative for thrombosis Continue statin Diffuse B Cell Lymphoma of head/neck:s/p 1 cycle of RCEOP (11/18/22 - 11/21/22) Chronic myelomonocytic leukemia: Chronic Thrombocytopenia: Transfusion reaction to platelets transfusion: Follows with DR. Rojas received chemo/XRT Recent pet scan showed spot on tonsill, this was evaled by ENT and determined not to be cancerous He is on eltrombopag PAF Continue amiodarone/metoprolol Hx of severe protein calorie malnutrition Continue megace H/O dysphagia Insists on regular diet, not minced/moist or heart healthy Diet changed per patient's wishes Aspiration precautions Tobacco abuse COPD Had counseled on smoking cessation. 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 Being managed for right foot osteomyelitis/Infection associated with internal fixation device of right tibia S/P Right Ankle Hardware Removal(Right) and Excision of wound right ankle Patient seen and examined. Reports surgical site pain is well controlled Reports chronic left heel wound Denied any new complaints Physical Exam Constitutional: + well hydrated; no acute distress Eyes: PERRL, conjunctivae normal, anicteric sclerae ENMT: external ear and nose normal, oropharynx normal Respiratory: normal respiratory effort, lungs clear to auscultation Cardiovascular: Rate/Rhythm: regular rate and regular rhythm S1 S2 Gastrointestinal (Abdomen): normal bowel sounds, soft, nontender, no hepatosplenomegaly Musculoskeletal: Right foot bandaged Left leg has no edema but has a wound on left heel, covered with scab with surrounding tenderness Neurologic: PERRL, EOMI, accommodation nl, no face palsy, no dysarthria Psychiatric: A+Ox3, euthymic affect Results & Data Results & Data Vital Signs (Past 12 Hours) Vital Signs Temp Pulse Pulse Resp BP Pulse Ox O2 Del Method 09/16/23 07:53 36.8 C 68 16 124/74 94 Nasal Cannula 09/16/23 06:01 65 09/16/23 04:43 36.8 C 71 17 125/71 95 Nasal Cannula 09/15/23 23:12 37.1 C 69 17 112/55 L 94 Nasal Cannula 09/15/23 22:08 Nasal Cannula 09/15/23 21:58 71 O2 Flow Rate 09/16/23 07:53 3 09/16/23 06:01 09/16/23 04:43 3 09/15/23 23:12 3 09/15/23 22:08 3 09/15/23 21:58 Laboratory Results Abnormal lab results 09/16/23 Range/Units 06:16 WBC 10.92 H (4.8-10.8) K/ul RBC 3.01 L (4.70-6.10) M/uL Hgb 8.1 L (14.0-18.0) g/dl Hct 26.1 L (42.0-52.0) % MCHC 31.0 L (32.0-36.0) g/dL RDW Std Deviation 75.6 H (36.4-46.3) fL RDW Coeff of Efren 24.0 H (11.5-14.5) % Plt Count 127 L (130-400) K/uL Creatinine 1.61 H (0.6-1.4) mg/dl (1) Osteomyelitis Laterality: right Osteomyelitis location: foot Osteomyelitis type: unspecified type Qualified Code(s): M86.9 - Osteomyelitis, unspecified (2) Wound of right ankle Encounter type: initial encounter Qualified Code(s): S91.001A - Unspecified open wound, right ankle, initial encounter
[2023-09-16] MEDS: VANCOMYCIN HCL 1,000 MG in SODIUM CHLORIDE 0.9% 250 ML IV SCH (10:12)
--- NOTE | 2023-09-16 10:24 | Pharmacy Report ---
Pharmacy PK ABX Note - Date of Service September 16, 2023 - Assessment and Plan Assessment 09/16 * Random vancomycin level this AM was 11.8 mcg/ml - current vancomycin dosing is associated with goal of AUC/EBONY of 400-600. Plan to continue same dosing. ID following patient, awaiting further rec's 09/14 * 73 year old M started on vancomycin and cefepime for concerns for osteomyelitis on CT of ankle. Planning for OR today for removal of R ankle hardware. Blood cultures pending. Patient with hx of B cell lymphoma, previous admission in April for bilateral infected foot ulcers where he underwent debridement and treated with abx's x 6 weeks per notes. Day #2 of antimicrobial therapy. Plan Vancomycin * Continue vancomycin 1000 mg iv q 24 hours Pharmacy has transitioned to AUC monitoring for vancomycin. AUC/EBONY is the preferred PK/PD target and is associated with decreased risk of nephrotoxicity compared to traditional trough targets.
[2023-09-16] MEDS: HEPARIN 100 UNIT/ML 5ML FLUSH FLUSH PRN ×2 (12:04→17:37)
--- NOTE | 2023-09-16 18:11 | Electrocardiogram Report ---
Test Reason : Blood Pressure : / mmHG Vent. Rate : 069 BPM Atrial Rate : 069 BPM P-R Int : 182 ms QRS Dur : 100 ms QT Int : 460 ms P-R-T Axes : -24 008 -02 degrees QTc Int : 492 ms Normal sinus rhythm Prolonged QT Abnormal ECG When compared with ECG of 18-MAY-2023 14:14, Sinus rhythm has replaced Electronic atrial pacemaker Confirmed by Issac Bynum ([id number]) on 09/16/2023 6:11:13 PM Referred By: REFERRED SELF Confirmed By:Issac Bynum
[2023-09-17] MEDS: HYDROCODONE/ACETAMINOPHEN 7.5/325MG TAB PO PRN ×4 (00:05→21:25)
[2023-09-17] MEDS: HYDROmorphone INJ 0.5 MG/0.5 ML SYR IV PRN ×6 (00:49→22:32)
[2023-09-17] MEDS: ELTROMBOPAG OLAMINE PO SCH (05:54)
[2023-09-17 07:34] LABS: BUN Creatinine Ratio 15.3 (10-20); Calcium 9.1 mg/dl (8.6-10.3); Creatinine Clr Calc Pharmacy 41.8 ml/min; Est GFR (African American) 55.1 ml/min; Est GFR (Non-African American) 47.5 ml/min
[2023-09-17] MEDS: VANCOMYCIN HCL 1,000 MG in SODIUM CHLORIDE 0.9% 250 ML IV SCH (07:48)
[2023-09-17] MEDS: METOPROLOL TARTRATE 50 MG TAB PO SCH ×2 (07:48→21:26)
[2023-09-17] MEDS: CEFEPIME 2,000 MG in SYRINGE 0 ML IV SCH ×2 (07:48→21:25)
[2023-09-17] MEDS: ADVANCED PROBIOTIC 1250 MG CAPSULE PO SCH (07:49)
[2023-09-17] MEDS: AMIODARONE 200 MG TAB PO SCH (07:49)
[2023-09-17] MEDS: MEGESTROL ACETATE 40 MG TAB PO SCH (07:49)
[2023-09-17] MEDS: POLYETHYLENE (MIRALAX) 17 GM PACK PO SCH (07:49)
[2023-09-17] MEDS: PANTOprazole 40 MG TAB PO SCH (07:49)
[2023-09-17] MEDS: ATORVASTATIN 40 MG TAB PO SCH (07:49)
[2023-09-17 08:09] LABS: Hematocrit (blood only) 28.5 % (42.0-52.0); Hemoglobin 8.7 g/dl (14.0-18.0); Mean Corpuscular Hgb Conc 30.5 g/dL (32.0-36.0); Mean Corpuscular Volume 88.5 fL (80.0-100.0); Platelet Count 115 K/uL (130-400); RDW Coefficient of Variation 23.9 % (11.5-14.5); RDW Standard Deviation 76.5 fL (36.4-46.3); Red Blood Count 3.22 M/uL (4.70-6.10); White Blood Count 10.25 K/ul (4.8-10.8)
--- NOTE | 2023-09-17 11:25 | Hospitalist Progress Note ---
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 Mccormick for right lateral malleolus foot wound. Being managed for right foot osteomyelitis. Right foot Osteomyelitis Wound of R lateral malleolus Infection associated with internal fixation device of right tibia PAD LE CT noted right heel wound 2.6x2.2 cm focus of erosion of adjacent posterior calcaneus consistent with acute osteomyelitis, s/p right tibial and fibular internal fixation. hardware intact S/P Right Ankle Hardware Removal(Right) and Excision of wound right ankle POD 3 CBC showed Hb of 8.7 today Continue to monitor Wound culture from 09/13/23 growing Grp B strep OR cultures from 09/14/23 growing Corynebacterium Venous doppler is negative for thrombosis I discussed with ID Dr Joyce on 09/16/23. He recommends patient will require IV vanc for 6 weeks Patient will like to come [facility] for infusion Script given to CM. However, [facility] until Tuesday after [place] I updated patient and about that this morning They plan to stay till then. Will defer wound dressing instructions to Ux Developer Designer Dr Mccormick Continue statin Diffuse B Cell Lymphoma of head/neck:s/p 1 cycle of RCEOP (11/18/22 - 11/21/22) Chronic myelomonocytic leukemia: Chronic Thrombocytopenia: Transfusion reaction to platelets transfusion: Follows with DR. Rojas received chemo/XRT Recent pet scan showed spot on tonsill, this was evaled by ENT and determined not to be cancerous He is on eltrombopag PAF Continue amiodarone/metoprolol Hx of severe protein calorie malnutrition Continue megace H/O dysphagia Aspiration precautions Tobacco abuse COPD Had counseled on smoking cessation. Stated he is not interested in quitting Prn albuterol DVT ppx: Plan for pharm DVT ppx once ok with surgeon DNR/DNI [facility] Dispo: Med tele Updated at bedside I spent a total of 45 minutes coordinating, documenting and providing care for this patient excluding time spent in performance of separately billed services Admission and Anticipated Discharge Date Admission Date: September 13, 2023 Subjective Patient seen and examined. Reports surgical site pain is well controlled Reports some right groin pain which he stated happens every time his leg infection gets worse. Reports chronic left heel wound Denied any new complaints Physical Exam Constitutional: + well hydrated; no acute distress Eyes: PERRL, conjunctivae normal, anicteric sclerae ENMT: external ear and nose normal, oropharynx normal Respiratory: normal respiratory effort, lungs clear to auscultation Cardiovascular: Rate/Rhythm: regular rate and regular rhythm S1 S2 Gastrointestinal (Abdomen): normal bowel sounds, soft, nontender, no hepatosplenomegaly Musculoskeletal: Right foot/leg dressing Patient declined examination of his groin Neurologic: PERRL, EOMI, accommodation nl, no face palsy, no dysarthria Psychiatric: A+Ox3, euthymic affect Results & Data Results & Data Vital Signs (Past 12 Hours) Vital Signs Temp Pulse Resp BP BP Pulse Ox O2 Del Method 09/17/23 08:19 36.5 C 74 18 126/70 92 Room Air 09/17/23 04:50 36.7 C 72 20 120/69 93 Room Air 09/17/23 01:03 36.8 C 71 20 128/33 L 92 Room Air Laboratory Results Abnormal lab results 09/17/23 Range/Units 06:37 RBC 3.22 L (4.70-6.10) M/uL Hgb 8.7 L (14.0-18.0) g/dl Hct 28.5 L (42.0-52.0) % MCHC 30.5 L (32.0-36.0) g/dL RDW Std Deviation 76.5 H (36.4-46.3) fL RDW Coeff of Efren 23.9 H (11.5-14.5) % Plt Count 115 L (130-400) K/uL Chloride 109 H (98-107) mmol/L Creatinine 1.44 H (0.6-1.4) mg/dl (1) Osteomyelitis Laterality: right Osteomyelitis location: foot Osteomyelitis type: unspecified type Qualified Code(s): M86.9 - Osteomyelitis, unspecified (2) Wound of right ankle Encounter type: initial encounter Qualified Code(s): S91.001A - Unspecified open wound, right ankle, initial encounter
[2023-09-18] MEDS: HYDROmorphone INJ 0.5 MG/0.5 ML SYR IV PRN ×8 (01:32→23:25)
[2023-09-18] MEDS: HYDROCODONE/ACETAMINOPHEN 7.5/325MG TAB PO PRN ×4 (03:41→22:47)
[2023-09-18] MEDS: ELTROMBOPAG OLAMINE PO SCH (05:41)
[2023-09-18 07:21] LABS: BUN Creatinine Ratio 17.1 (10-20); Calcium 8.9 mg/dl (8.6-10.3); Creatinine Clr Calc Pharmacy 39.1 ml/min; Est GFR (African American) 51.6 ml/min; Est GFR (Non-African American) 44.5 ml/min
[2023-09-18 07:58] LABS: Hematocrit (blood only) 28.4 % (42.0-52.0); Hemoglobin 8.8 g/dl (14.0-18.0); Mean Corpuscular Hemoglobin 26.8 pg (25.0-34.0); Mean Corpuscular Volume 86.6 fL (80.0-100.0); Nucleated RBC # (auto) 0.02 K/uL (0.00-0.12); Nucleated RBC % (auto) 0.2 %; Platelet Count 139 K/uL (130-400); RDW Coefficient of Variation 23.9 % (11.5-14.5); RDW Standard Deviation 75.4 fL (36.4-46.3); Red Blood Count 3.28 M/uL (4.70-6.10); White Blood Count 9.16 K/ul (4.8-10.8)
[2023-09-18] MEDS: MEGESTROL ACETATE 40 MG TAB PO SCH (08:47)
[2023-09-18] MEDS: ADVANCED PROBIOTIC 1250 MG CAPSULE PO SCH (08:47)
[2023-09-18] MEDS: PANTOprazole 40 MG TAB PO SCH (08:47)
[2023-09-18] MEDS: AMIODARONE 200 MG TAB PO SCH (08:48)
[2023-09-18] MEDS: METOPROLOL TARTRATE 50 MG TAB PO SCH ×2 (08:48→20:27)
[2023-09-18] MEDS: ATORVASTATIN 40 MG TAB PO SCH (08:48)
[2023-09-18] MEDS: POLYETHYLENE (MIRALAX) 17 GM PACK PO SCH (08:48)
[2023-09-18] MEDS: CEFEPIME 2,000 MG in SYRINGE 0 ML IV SCH ×2 (08:50→20:30)
[2023-09-18] MEDS: VANCOMYCIN HCL 1,000 MG in SODIUM CHLORIDE 0.9% 250 ML IV SCH (08:50)
--- NOTE | 2023-09-18 09:27 | Hospitalist Progress Note ---
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 Mccormick for right lateral malleolus foot wound. Being managed for right foot osteomyelitis. Right foot Osteomyelitis Wound of R lateral malleolus Infection associated with internal fixation device of right tibia PAD LE CT noted right heel wound 2.6x2.2 cm focus of erosion of adjacent posterior calcaneus consistent with acute osteomyelitis, s/p right tibial and fibular internal fixation. hardware intact S/P Right Ankle Hardware Removal(Right) and Excision of wound right ankle POD 4 Hb is 8.8 today. Stable Continue to monitor Wound culture from 09/13/23 growing Grp B strep OR cultures from 09/14/23 growing Corynebacterium Venous doppler is negative for thrombosis I discussed with ID Dr Joyce on 09/16/23. He recommends patient will require IV vanc for 6 weeks Patient will like to come [facility] for infusion Script given to CM on 09/16/23. However, CM reported [facility] and [facility] until Tuesday after [place] Wound dressing per Link Trainer's instructions Continue statin Diffuse B Cell Lymphoma of head/neck:s/p 1 cycle of RCEOP (11/18/22 - 11/21/22) Chronic myelomonocytic leukemia: Chronic Thrombocytopenia: Transfusion reaction to platelets transfusion: Follows with DR. Rojas received chemo/XRT Recent pet scan showed spot on tonsill, this was evaled by ENT and determined not to be cancerous He is on eltrombopag PAF Continue amiodarone/metoprolol Hx of severe protein calorie malnutrition Continue megace H/O dysphagia Aspiration precautions Tobacco abuse COPD Had counseled on smoking cessation. Stated he is not interested in quitting Prn albuterol DVT ppx: Plan for pharm DVT ppx once ok with surgeon DNR/DNI [facility]CP: [facility] Dispo: Med tele Updated at bedside I spent a total of 40 minutes coordinating, documenting and providing care for this patient excluding time spent in performance of separately billed services Admission and Anticipated Discharge Date Admission Date: September 13, 2023 Subjective Patient seen and examined. Reports surgical site pain is well controlled Reports right groin pain but declined examination of the area. Reports chronic left heel wound Denied any new complaints Physical Exam Constitutional: + well hydrated; no acute distress Eyes: PERRL, conjunctivae normal, anicteric sclerae ENMT: external ear and nose normal, oropharynx normal Respiratory: normal respiratory effort, lungs clear to auscultation Cardiovascular: Rate/Rhythm: regular rate and regular rhythm S1 S2 Gastrointestinal (Abdomen): normal bowel sounds, soft, nontender, no hepatosplenomegaly Musculoskeletal: Right foot dressing Left leg has no edema but has a wound on left heel, covered with scab with surrounding tenderness Neurologic: PERRL, EOMI, accommodation nl, no face palsy, no dysarthria Psychiatric: A+Ox3, euthymic affect Results & Data Results & Data Vital Signs (Past 12 Hours) Vital Signs Temp Pulse Pulse Resp BP BP Pulse Ox 09/18/23 07:59 09/18/23 07:50 36.7 C 72 16 109/66 90 09/18/23 07:00 64 09/18/23 03:46 36.7 C 64 16 120/58 L 92 09/17/23 23:04 36.5 C 76 16 111/62 90 09/17/23 22:27 76 09/17/23 21:44 O2 Del Method 09/18/23 07:59 Room Air 09/18/23 07:50 Room Air 09/18/23 07:00 09/18/23 03:46 Room Air 09/17/23 23:04 Room Air 09/17/23 22:27 09/17/23 21:44 Room Air Laboratory Results Abnormal lab results 09/18/23 Range/Units 05:47 RBC 3.28 L (4.70-6.10) M/uL Hgb 8.8 L (14.0-18.0) g/dl Hct 28.4 L (42.0-52.0) % MCHC 31.0 L (32.0-36.0) g/dL RDW Std Deviation 75.4 H (36.4-46.3) fL RDW Coeff of Efren 23.9 H (11.5-14.5) % Chloride 109 H (98-107) mmol/L BUN 26 H (6-23) mg/dl Creatinine 1.52 H (0.6-1.4) mg/dl (1) Osteomyelitis Laterality: right Osteomyelitis location: foot Osteomyelitis type: unspecified type Qualified Code(s): M86.9 - Osteomyelitis, unspecified (2) Wound of right ankle Encounter type: initial encounter Qualified Code(s): S91.001A - Unspecified open wound, right ankle, initial encounter
--- NOTE | 2023-09-18 11:58 | Pharmacy Report ---
Pharmacy PK ABX Note - Date of Service September 18, 2023 - Assessment and Plan Assessment 09/18 * Random vancomycin level this AM was 11.8 mcg/ml- current dosing associated with goal of AUC/EBONY. Continuing current dose. Plan to continue vancomycin for 6weeks, outpatient arrangements being made. 09/16 * Random vancomycin level this AM was 11.8 mcg/ml - current vancomycin dosing is associated with goal of AUC/EBONY of 400-600. Plan to continue same dosing. ID following patient, awaiting further rec's 09/14 * 73 year old M started on vancomycin and cefepime for concerns for osteomyelitis on CT of ankle. Planning for OR today for removal of R ankle hardware. Blood cultures pending. Patient with hx of B cell lymphoma, previous admission in April for bilateral infected foot ulcers where he underwent debridement and treated with abx's x 6 weeks per notes. Day #2 of antimicrobial therapy. Plan Vancomycin * Continue vancomycin 1000 mg iv q 24 hours Pharmacy has transitioned to AUC monitoring for vancomycin. AUC/EBONY is the preferred PK/PD target and is associated with decreased risk of nephrotoxicity compared to traditional trough targets.
--- NOTE | 2023-09-18 13:00 | Orthopedic Progress Note ---
Date of Service September 18, 2023 Assessment & Plan (1) Infection associated with internal fixation device of right tibia: Plan: Patient seen and examined in 284-1. Patient status post day #4 right ankle excision of wound and explant of retained exposed orthopedic hardware DOS:09/14/23. Patient seen with present who helps with history and care. Patient has no complaints. Wound culture in office on 09/13/23 shows Group B Streptococci (S. agalactiae) & CORYNEBACTERIUM STRIATUM. Awaiting OR sensativities. Appreciate ID rec Dry, sterile, dressing changed with out incident. Continue to off load right heel. Patient is now Weight Bearing as tolerated in presence of PT. No further surgical care anticipated. Will continue to follow while in house. (2) Wound of right ankle: (3) Failure of outpatient treatment: (4) Cellulitis: (5) Anemia: (6) Osteomyelitis: Admission and Anticipated Discharge Date Admission Date: September 13, 2023 Subjective Patient seen and examined in room 284-1. Patient status post day #4 right ankle excision of wound and explant of retained exposed orthopedic hardware DOS:09/14/23. Patient is with who helps with history and care. Patient has no complaints. Review of Systems Review of Systems: All systems reviewed & are unremarkable except as noted in Subjective Physical Exam Constitutional: + frail appearing, cooperative and comfo rtable Eyes: normal visual palomo by confrontation Neck: normal visual inspection Respiratory: normal respiratory effort Cardiovascular: Rate/Rhythm: regular rate and regular rhythm Vessels: posterior tibial pulses present and dorsalis pedis pulses present Skin: + ulcer (Right lateral heel, Right ankle with exposed hardware) Neurologic: moves all extremities (Absent epicritic sensation) Psychiatric: Orientation: alert and oriented x 3 Results & Data Vital Signs (Past 12 Hours) Vital Signs Temp Pulse Pulse Resp BP BP Pulse Ox 09/18/23 11:34 36.6 C 70 16 134/80 92 09/18/23 07:59 09/18/23 07:50 36.7 C 72 16 109/66 90 09/18/23 07:00 64 09/18/23 03:46 36.7 C 64 16 120/58 L 92 O2 Del Method 09/18/23 11:34 Room Air 09/18/23 07:59 Room Air 09/18/23 07:50 Room Air 09/18/23 07:00 09/18/23 03:46 Room Air (1) Infection associated with internal fixation device of right tibia Encounter type: initial encounter Qualified Code(s): T84.622A - Infection and inflammatory reaction due to internal fixation device of right tibia, initial encounter (2) Wound of right ankle Encounter type: initial encounter Qualified Code(s): S91.001A - Unspecified open wound, right ankle, initial encounter (4) Cellulitis Laterality: right Site of cellulitis: extremity Site of cellulitis of extremity: lower extremity Qualified Code(s): L03.115 - Cellulitis of right lower limb (5) Anemia Anemia type: unspecified type Qualified Code(s): D64.9 - Anemia, unspecified (6) Osteomyelitis Laterality: right Osteomyelitis location: foot Osteomyelitis type: unspecified type Qualified Code(s): M86.9 - Osteomyelitis, unspecified
[2023-09-19] MEDS: HYDROmorphone INJ 0.5 MG/0.5 ML SYR IV PRN ×6 (03:08→21:34)
[2023-09-19] MEDS: ELTROMBOPAG OLAMINE PO SCH (05:53)
[2023-09-19] MEDS: HYDROCODONE/ACETAMINOPHEN 7.5/325MG TAB PO PRN ×3 (05:54→22:18)
[2023-09-19 08:13] LABS: BUN Creatinine Ratio 16.5 (10-20); Calcium 8.6 mg/dl (8.6-10.3); Creatinine Clr Calc Pharmacy 36.4 ml/min; Est GFR (Non-African American) 40.6 ml/min; Potassium 3.8 mmol/L (3.5-5.1)
[2023-09-19] MEDS: CEFEPIME 2,000 MG in SYRINGE 0 ML IV SCH (08:53)
[2023-09-19] MEDS: ADVANCED PROBIOTIC 1250 MG CAPSULE PO SCH (08:53)
[2023-09-19] MEDS: METOPROLOL TARTRATE 50 MG TAB PO SCH ×2 (08:54→21:35)
[2023-09-19] MEDS: AMIODARONE 200 MG TAB PO SCH (08:54)
[2023-09-19] MEDS: MEGESTROL ACETATE 40 MG TAB PO SCH (08:54)
[2023-09-19] MEDS: PANTOprazole 40 MG TAB PO SCH (08:54)
[2023-09-19] MEDS: POLYETHYLENE (MIRALAX) 17 GM PACK PO SCH (09:01)
[2023-09-19] MEDS: HEPARIN 100 UNIT/ML 5ML FLUSH FLUSH PRN ×2 (09:15→18:34)
[2023-09-19] MEDS: VANCOMYCIN HCL 1,000 MG in SODIUM CHLORIDE 0.9% 250 ML IV SCH (10:56)
[2023-09-19] MEDS: ATORVASTATIN 40 MG TAB PO SCH (10:56)
--- NOTE | 2023-09-19 12:25 | Hospitalist Progress Note ---
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 Mccormick for right lateral malleolus foot wound. Being managed for right foot osteomyelitis. Right foot Osteomyelitis Wound of R lateral malleolus Infection associated with internal fixation device of right tibia PAD LE CT noted right heel wound 2.6x2.2 cm focus of erosion of adjacent posterior calcaneus consistent with acute osteomyelitis, s/p right tibial and fibular internal fixation. hardware intact S/P Right Ankle Hardware Removal(Right) and Excision of wound right ankle POD 5 Hb is stable Continue to monitor Wound culture from 09/13/23 growing Grp B strep OR cultures from 09/14/23 growing Corynebacterium Venous doppler is negative for thrombosis I discussed with ID Dr Joyce on 09/16/23. He recommends patient will require IV vanc for 6 weeks Patient will [facility] Script given to CM on 09/16/23. However, [facility] until after [facility] Will follow up with CM tomorrow about outpatient antibiotic arrangement prior to dc Wound dressing per Drum Plater's instructions Continue statin Diffuse B Cell Lymphoma of head/neck:s/p 1 cycle of RCEOP (11/18/22 - 11/21/22) Chronic myelomonocytic leukemia: Chronic Thrombocytopenia: Transfusion reaction to platelets transfusion: Follows with DR. Rojas received chemo/XRT Recent pet scan showed spot on tonsill, this was evaled by ENT and determined not to be cancerous He is on eltrombopag PAF Continue amiodarone/metoprolol Hx of severe protein calorie malnutrition Continue megace H/O dysphagia Aspiration precautions Tobacco abuse COPD Had counseled on smoking cessation. Stated he is not interested in quitting Prn albuterol DVT ppx: Hep sq DNR/DNI [facility] I spent a total of 35 minutes coordinating, documenting and providing care for this patient excluding time spent in performance of separately billed services Admission and Anticipated Discharge Date Admission Date: September 13, 2023 Subjective Patient seen and examined. Reports surgical site pain is well controlled Reports right groin pain is improved Denied any new complaints Physical Exam Constitutional: + well hydrated; no acute distress Eyes: PERRL, conjunctivae normal, anicteric sclerae ENMT: external ear and nose normal, oropharynx normal Respiratory: normal respiratory effort, lungs clear to auscultation Cardiovascular: Rate/Rhythm: regular rate and regular rhythm S1 S2 Gastrointestinal (Abdomen): normal bowel sounds, soft, nontender, no hepatosplenomegaly Musculoskeletal: Right foot bandaged Left leg with wound on left heel, covered with scab with surrounding tenderness Neurologic: PERRL, EOMI, accommodation nl, no face palsy, no dysarthria Psychiatric: A+Ox3, euthymic affect Results & Data Results & Data Vital Signs (Past 12 Hours) Vital Signs Temp Pulse Pulse Resp BP BP Pulse Ox 09/19/23 11:43 36.9 C 72 16 138/71 97 09/19/23 07:55 36.8 C 73 16 125/63 94 09/19/23 07:39 70 09/19/23 03:52 36.8 C 71 18 114/61 95 09/19/23 00:31 36.7 C 69 20 128/68 95 O2 Del Method 09/19/23 11:43 Room Air 09/19/23 07:55 Room Air 09/19/23 07:39 09/19/23 03:52 Room Air 09/19/23 00:31 Room Air Laboratory Results Abnormal lab results 09/19/23 Range/Units 07:25 Chloride 110 H (98-107) mmol/L BUN 27 H (6-23) mg/dl Creatinine 1.64 H (0.6-1.4) mg/dl Glucose 119 H (70-99(Fasting)) mg/dl (1) Osteomyelitis Laterality: right Osteomyelitis location: foot Osteomyelitis type: un specified type Qualified Code(s): M86.9 - Osteomyelitis, unspecified (2) Wound of right ankle Encounter type: initial encounter Qualified Code(s): S91.001A - Unspecified open wound, right ankle, initial encounter
[2023-09-19] MEDS: HEPARIN SOD 5,000 UNIT/0.5 ML VIAL SQ SCH ×3 (15:24→22:20)
[2023-09-20] MEDS: HEPARIN 100 UNIT/ML 5ML FLUSH FLUSH PRN ×2 (00:38→06:38)
[2023-09-20] MEDS: HYDROmorphone INJ 0.5 MG/0.5 ML SYR IV PRN ×4 (00:38→09:45)
[2023-09-20] MEDS: HYDROCODONE/ACETAMINOPHEN 7.5/325MG TAB PO PRN (04:44)
[2023-09-20] MEDS: ELTROMBOPAG OLAMINE PO SCH (06:38)
[2023-09-20] MEDS: HEPARIN SOD 5,000 UNIT/0.5 ML VIAL SQ SCH (06:38)
[2023-09-20] MEDS: PANTOprazole 40 MG TAB PO SCH (08:39)
[2023-09-20] MEDS: AMIODARONE 200 MG TAB PO SCH (08:39)
[2023-09-20] MEDS: METOPROLOL TARTRATE 50 MG TAB PO SCH (08:39)
[2023-09-20] MEDS: ADVANCED PROBIOTIC 1250 MG CAPSULE PO SCH (08:39)
[2023-09-20] MEDS: ATORVASTATIN 40 MG TAB PO SCH (08:39)
[2023-09-20] MEDS: MEGESTROL ACETATE 40 MG TAB PO SCH (08:40)
[2023-09-20] MEDS: POLYETHYLENE (MIRALAX) 17 GM PACK PO SCH (08:40)
[2023-09-20 09:04] LABS: BUN Creatinine Ratio 15.7 (10-20); Creatinine Clr Calc Pharmacy 39.1 ml/min; Est GFR (African American) 51.2 ml/min; Est GFR (Non-African American) 44.1 ml/min; Potassium 3.9 mmol/L (3.5-5.1)
[2023-09-20 09:15] LABS: Hematocrit (blood only) 29.6 % (42.0-52.0); Mean Corpuscular Hemoglobin 26.9 pg (25.0-34.0); Mean Corpuscular Hgb Conc 30.4 g/dL (32.0-36.0); Mean Corpuscular Volume 88.6 fL (80.0-100.0); Nucleated RBC # (auto) 0.03 K/uL (0.00-0.12); Nucleated RBC % (auto) 0.3 %; Platelet Count 146 K/uL (130-400); Platelet Estimate Normal (Normal); RDW Coefficient of Variation 23.7 % (11.5-14.5); RDW Standard Deviation 76.2 fL (36.4-46.3); Red Blood Count 3.34 M/uL (4.70-6.10); White Blood Count 9.23 K/ul (4.8-10.8)
--- NOTE | 2023-09-20 09:39 | Orthopedic Progress Note ---
Date of Service September 20, 2023 Assessment & Plan (1) Infection associated with internal fixation device of right tibia: Plan: Patient seen and examined in 284-1. Patient status post day #5 right ankle excision of wound and explant of retained exposed orthopedic hardware DOS:09/14/23. Patient seen with present who helps with history and care. Patient has no complaints. Continue to off load right heel. Patient is now Weight Bearing as tolerated in presence of PT. No further surgical care anticipated. Patient is ok for discharge per podiatry. Will resume home health once out patient. Also discussed use of Physical therapy now he is weight bearing as tolerated. Will continue to follow while in house. (2) Wound of right ankle: (3) Failure of outpatient treatment: (4) Cellulitis: (5) Anemia: (6) Osteomyelitis: Admission and Anticipated Discharge Date Admission Date: September 13, 2023 Subjective Patient seen and examined in room 308-1. is present who helps with history and care. Patient seen at bedside resting comfortably and has no complaints. Physical Exam Constitutional: + frail appearing, cooperative and comfo rtable Eyes: normal visual palomo by confrontation Neck: normal visual inspection Respiratory: normal respiratory effort Cardiovascular: Rate/Rhythm: regular rate and regular rhythm Vessels: posterior tibial pulses present and dorsalis pedis pulses present Skin: + ulcer (Right lateral heel wound.) and + incision (Sutures intact. Skin well co-apted.) Neurologic: moves all extremities (Absent epicritic sensation) Psychiatric: Orientation: alert and oriented x 3 Results & Data Vital Signs (Past 12 Hours) Vital Signs Temp Pulse Resp BP Pulse Ox O2 Del Method 09/20/23 07:21 36.6 C 72 18 131/61 93 Room Air 09/19/23 22:09 36.7 C 75 18 146/73 H 93 Room Air Diagnostic Findings [facility] [address] [place] [address] / Director: Eloy Mccoy M.D. Clinical Laboratory Report Name: ANGÉLICA BRIZUELA Acct: [id number] Status: ADM [place] : 1950 [facility] [place] Date: 09/13/23 Age: 73 Sex: M Dis Date: Loc: Medical/Surgical/Ortho 3 [facility] Spec: [id number] Collected: 09/14/23-UNK Received: 09/14/[address]: Rajinder Mccormick, DPM, MS Copy To: Davion Murguia MD Source: Ankle,Right OV Order: Ordered: Aer/Maral Cult/Sm Comments: Comment 1. Right ankle screws (for culture) Procedure Result Verified Site Gram Stain Final 09/14/23 Gram Stain Result Few WBCs Seen No Organisms Seen Aero/Maral Cult Final 09/19/23 Organism 1 Corynebacterium species Quantity Few Sens No Sensitivities to Follow No Anaerobes Isolated No Anaerobes Isolated Name: ANGÉLICA BRIZUELA : 1950 PAGE 1 Printed: 09/20/23 0694 END OF REPORT (1) Infection associated with internal fixation device of right tibia Encounter type: initial encounter Qualified Code(s): T84.622A - Infection and inflammatory reaction due to internal fixation device of right tibia, initial encounter (2) Wound of right ankle Encounter type: initial encounter Qualified Code(s): S91.001A - Unspecified open wound, right ankle, initial encounter (4) Cellulitis Laterality: right Site of cellulitis: extremity Site of cellulitis of extremity: lower extremity Qualified Code(s): L03.115 - Cellulitis of right lower limb (5) Anemia Anemia type: unspecified type Qualified Code(s): D64.9 - Anemia, unspecified (6) Osteomyelitis Laterality: right Osteomyelitis location: foot Osteomyelitis type: unspecified type Qualified Code(s): M86.9 - Osteomyelitis, unspecified
[2023-09-20] MEDS: VANCOMYCIN HCL 1,000 MG in SODIUM CHLORIDE 0.9% 250 ML IV SCH (09:50)
--- NOTE | 2023-09-20 12:21 | Discharge Summary ---
Date of Service September 20, 2023 Admission HPI Per Admitting Provider This is a 73yo M with a complex PMH of 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 Mccormick for right lateral malleolus foot wound. He has been following with Dr. Mccormick for his lower extremity wounds in setting of peripheral vascular disease. He was last hospitalized in April 2023 secondary to bilateral infected foot ulcers and right heel osteomyelitis.He underwent debridement and wound cultures grew Corynebacterium, Finegoldia and Prevotella. He was treated with antibiotics for a total of 6 weeks. He had been doing well as of late. He has had increased appetite and weight gain in setting of Megace. He has completed radiation and continues to follow with oncology. He presents today due to worsening of a right lateral malleoli or foot wound with increased drainage and overall redness. He denies any systemic symptoms including fever, chills, sweats, lightheadedness, dizziness, chest pain, shortness of breath, don sea, vomiting, diarrhea, melena or hematochezia. He does have chronic abdominal pain and describes this is all over. He moves his bowels with MiraLAX despite taking chronic hydrocodone. In ED lab work notable for H&H 9.4 and 30.9, BUN 26, creatinine 1.47 and CRP 5.20. He received IV vancomycin and cefepime empirically. Admission Exam Per Admitting Provider GENERAL: Alert and oriented x3. NAD, on 2L O2 via NC HEENT: No pallor, no icterus. Pupils equal, round and reactive to light. Oral mucosa moist. NECK: No JVD, no neck masses. HEART: S1 and S2 heard. Regular rate and rhythm. No murmur, no gallop. RESPIRATORY SYSTEM: Normal AP diameter. No accessory muscle use. No wheezing, no crackles. ABDOMEN: Soft, bowel sounds present, nontender, no distention. CENTRAL NERVOUS SYSTEM: No facial droop. Speech is clear. Obeys simple commands. Moves extremities. EXTREMITIES: RLE erythema upto shins, tender, rt malleoli ulcer w/ pus drainage in the dressing. 1+ pitting edema. LLE no edema. Principal Diagnosis Right foot osteomyelitis Infection associated with internal fixation device of right tibia Discharge Exam Constitutional + well hydrated; no acute distress Eyes PERRL, conjunctivae normal, anicteric sclerae ENMT external ear and nose normal, oropharynx normal Respiratory normal respiratory effort, lungs clear to auscultation Cardiovascular Rate/Rhythm: regular rate and regular rhythm S1 S2 Gastrointestinal (Abdomen) normal bowel sounds, soft, nontender, no hepatosplenomegaly Musculoskeletal Right foot bandaged Left leg with wound on left heel, covered with scab with surrounding tenderness Neurologic PERRL, EOMI, accommodation nl, no face palsy, no dysarthria Psychiatric A+Ox3, euthymic affect Discharge Data Allergies Allergy/AdvReac Type Severity Reaction Status Date / Time cephalexin AdvReac Intermediate vomiting, Verified 08/26/23 12:04 diarrhea Consultations 09/13/23 17:09 ED Decision to Admit Stat 09/13/23 17:15 Consult Orthopedic Surgery Routine 09/13/23 18:01 Consult Infectious Diseases Routine Procedures Performed Operation Date: 09/14/23 08:50 Actual Procedures p Right Ankle Hardware Removal(Right) - Rajinder Mccormick, DANIKA, MS Ordered Studies 09/13/23 14:08 CT ankle RT wo con Stat 09/13/23 17:27 US venous doppler LE BI Stat 09/14/23 07:00 FL ankle RT 2V Routine Hospital Course (1) Osteomyelitis: (2) Wound of right ankle: (3) B-cell lymphoma: (4) Tachy-boris syndrome: Plan 73-year-old man with B-cell diffuse large B-cell lymphoma, CML, Thrombocytopenia, 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 Mccormick for right lateral malleolus foot wound. Being managed for right foot osteomyelitis. Right foot Osteomyelitis Wound of R lateral malleolus Infection associated with internal fixation device of right tibia PAD LE CT noted right heel wound 2.6x2.2 cm focus of erosion of adjacent posterior calcaneus consistent with acute osteomyelitis, s/p right tibial and fibular internal fixation. hardware intact S/P Right Ankle Hardware Removal(Right) and Excision of wound right ankle POD 6 Hb is stable. Hb is 9 today Wound culture from 09/13/23 growing Grp B strep OR cultures from 09/14/23 growing Corynebacterium Venous doppler is negative for thrombosis I discussed with ID Dr Joyce on 09/16/23. He recommends patient will require IV vanc for 6 weeks [facility] CM made arrangements. [facility] will monitor vanc trough and labs and forward to PCP for monitoring Wound dressing per Motor Electrician's instructions Per Motor Electrician: Continue to off load right heel. Patient is now Weight Bearing as tolerated in presence of PT Continue statin Diffuse B Cell Lymphoma of head/neck:s/p 1 cycle of RCEOP (11/18/22 - 11/21/22) Chronic myelomonocytic leukemia: Chronic Thrombocytopenia: Transfusion reaction to platelets transfusion: Follows with DR. Rojas received chemo/XRT Recent pet scan showed spot on tonsill, this was evaled by ENT and determined not to be cancerous He is on eltrombopag PAF Continue amiodarone/metoprolol Hx of severe protein calorie malnutrition Continue megace H/O dysphagia Tobacco abuse COPD Had counseled on smoking cessation. Stated he is not interested in quitting Prn albuterol Total Time Total Time Spent Total Time Spent (In Minutes): 35 Total Time Includes: Examination of the Patient, Discharge Planning and Medication Reconciliation Discharge Plan Discharge Items Patient Disposition: Home - Self-Care Reason For Visit: OSTEOMYELITIS Discharge Diagnosis: Right foot osteomyelitis Infection associated with internal fixation device of right tibia Status post surgery Condition on Discharge: Fair Activity: Resume your previous activity Weightbearing Comment: Weight bearing as toerated. Off load right heel. Non-emergency contact: Primary Care Provider and Surgeon Call non-emergency contact if: you have any medication questions and your symptoms worsen Follow-up/Referrals: [facility] [Primary Care Provider] - Diet: Heart Healthy Addtl Attending Provider Instructions: Mr De Souza You were admitted due to worsening foot infection You were managed for osteomyelitis and Infection associated with internal fixation device of right tibia You required surgery. You are being discharged on IV vancomycin daily at the [facility] until 10/26/23. They will monitor your labs and forward it to your Primary Doctor as needed. Please adhere to weight bearing instructions and wound dressing instructions as provided by the Surgeon. It is important to quit smoking as we discussed Please ensure follow up with your Primary Doctor It was a pleasure taking care of you. Pending Studies at Discharge: No Stand-Alone Forms: My [facility], Smoking Cessation Medications and DC Order Prescriptions: Continued ascorbic acid (vitamin C) 500 mg capsule 500 mg PO DAILY zinc sulfate 50 mg zinc (220 mg) tablet 50 mg PO DAILY Cerovite Senior 0.4 mg-300 mcg- 250 mcg tablet 1 tab PO QAM Patient Comments: no currently taking Promacta 50 mg tablet 50 mg PO DAILY Rx Instructions: administer on an empty stomach, at least 1 hour before or 2 hours after food/meal(s) pantoprazole 40 mg Tablet,Delayed Release (Dr/Ec) 40 mg PO DAILY Ear Drops (carbamide peroxide) 6.5 % Drops 5 drp OTR BID PRN (Reason: earwax) Qty: 15 0RF Rx Instructions: Use twice a day up to 4 days as needed atorvastatin 40 mg Tablet 40 mg PO QAM Qty: 30 0RF polyethylene glycol 3350 [Miralax] 17 gram Powder In Packet 17 g PO QAM PRN (Reason: Constipation) Qty: 14 0RF metoprolol tartrate [Lopressor] 50 mg tablet 50 mg PO BID Qty: 60 0RF albuterol sulfate 90 mcg/actuation Hfa Aerosol Inhaler 1 inh INHALATION QID PRN (Reason: sob) Qty: 6.7 0RF ondansetron 4 mg Tablet,Disintegrating 4 mg PO Q8H PRN (Reason: Nausea) Qty: 10 0RF megestrol 40 mg Tablet 40 mg PO QAM Qty: 30 0RF amiodarone 200 mg tablet 200 mg PO QAM Advanced Probiotic 625 mg (10 billion cell) Capsule 2 cap PO DAILY Qty: 60 0RF cyclobenzaprine 10 mg tablet 10 mg PO BID PRN (Reason: Muscle Spasm) hydrocodone-acetaminophen 7.5-325 mg tablet 1 tab PO Q6H PRN (Reason: Pain) Qty: 20 0RF Discharge Orders: Discharge Order (Routine); Ordered 09/20/23 Ordered By: Tish Gonzalez Admission Data Admit Date/Time: 09/13/23 17:15 Attending Provider: Tish Gonzalez I. Admit Provider: Davion Murguia Primary Care Provider: [facility] Other Providers: Juan Antonioi,Home Care Fax; [facility]; Davion Murguia; Rajinder Mccormick; Eugenio Ken; Teena Carroll; Oz Null I.; Conrado Dalal II; Antonia Chacon; Magdaleno Ying; Peterson Campo; Evelyn Joyce Other Interventions: Discharge Summary Assessment (RN) Last Done: 09/20/23 13:23
== END 2023-09-20 13:55 | disposition home or self-care (01) | DRG 463 ==
LOC: ED 13:49 → SUATTDRO 17:15 → 2N 17:15 → 3E 09-19 17:22

== ENCOUNTER 2024-02-04 20:15 | Inpatient (IN) ==
--- OUTSIDE RECORDS SUMMARY | 2024-02-04 20:22 | External Medical Summary | Continuity of Care Document ---
Author Name Unknown Organization [facility] Address [address] [place] [phone] Care Team Providers Care Data Processing Auditor Name Role Phone Lulu Montesinos Primary Care Physician [phone] [facility] [id number] Date(s): 01/25/24 - 01/25/[address] [phone] Discharge Disposition: Home or Self Care Attending Physician: MD Ugo, Joesph Cordero Allergies, Adverse Reactions, Alerts Substance Reaction Severity Status Keflex Upset stomach Active Medications acetaminophen-HYDROcodone 325 mg-7.5 mg oral tablet Start: 02/05/21 8:58:00 EDT, 1 tab, PO, qid, Refills: 0, PRN: as needed for pain Start Date: 02/05/21 Status: Ordered albuterol-ipratropium 100 mcg-20 mcg/inh inhalation aerosol Start: 02/05/21 8:59:00 EDT, 1 puff, inhaled, qid, PRN: cough and congestion Start Date: 02/05/21 Status: Ordered amiodarone Start: 02/10/23 10:52:00 EDT, 200 mg =, PO, Daily Start Date: 02/10/23 Status: Ordered Metoprolol Tartrate 100 mg oral tablet 0.5 tab, PO, bid, TAKE 1 TABLET BY MOUTH TWICE DAILY Start Date: 02/05/21 Status: Ordered Promacta Start: 11/03/23 13:49:00 EST, PO, Daily Start Date: 11/03/23 Status: Ordered Problem List Condition Confirmation Course Effective Dates Status H ealth Status Informant AAA (abdominal aortic aneurysm) Confirmed Active Carotid stenosis Confirmed Active CMML (chronic myelomonocytic leukemia) Confirmed Active DLBCL (diffuse large B cell lymphoma) Confirmed Active HTN (hypertension) Confirmed Active Thrombocytopenia Confirmed Active Tobacco user Confirmed Active Procedures Procedure Date Related Diagnosis Body Site Status Surgery 1 08/2023 Completed Open reduction and internal fixation of fracture and external fixation right leg tibia and fibula Completed Open reduction of fracture o f femur with internal fixation LEFT Comp leted 1removal of metal from the lower right leg near ankle Social History Social History Type Response Smoking Status Current every day li ght smoker Sex Male Patient Care team information Care Team Personnel Name: MD Yamel, Lulu Lin Position: Referring Member Role: Primary Care Provider Address: Address: [address] [address] [place] Name: BRYON Garcia Lynn Position: Physician Car Builder 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
--- NOTE | 2024-02-04 21:13 | Emergency Department Note ---
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 face and left periorbital soft tissue edema. No extension into the post septal space. Orbits: Unremarkable. Sinuses: Unremarkable. No air-fluid levels. IMPRESSION: Moderate left anterior face and left periorbital soft tissue edema. No extension into the post septal space. Electronically signed by: Coty Mcclelland MD 02/04/24 22:[address] 02/04/24 21:08 Exam(s): CT HEAD Without Contrast EXAM: CT Head Without Intravenous Contrast CLINICAL HISTORY: Reason for exam: trauma. TECHNIQUE: Axial computed tomography images of the head/brain without intravenous contrast. CTDI is 36.9 mGy and DLP is 3177.82 mGy-cm. Automated exposure control was utilized for the study. A dose lowering technique was utilized adhering to the principles of ALARA. COMPARISON: No relevant prior studies available. FINDINGS: Brain: Unremarkable. No hemorrhage. No significant white matter disease. No edema. Ventricles: Unremarkable. No ventriculomegaly. Bones/joints: Postsurgical changes in the left sphenoid bone. No acute fracture. Soft tissues: Moderate left lateral and frontal face soft tissue edema. Sinuses: Unremarkable as visualized. No acute sinusitis. Mastoid air cells: Unremarkable as visualized. No mastoid effusion. IMPRESSION: Moderate left lateral and frontal face soft tissue edema. No evidence of intracranial hemorrhage. Electronically signed by: Coty Mcclelland MD 02/04/24 22:32 PM Discharge Plan Visit Data Chief Complaint: Fall Stated Complaint: FALL w/ FOREHEAD AND WRIST LAC ED Provider: Samia Deras Discharge Problem: AMS (altered mental status), Generalized weakness, Recurrent falls, Sepsis, Anemia requiring transfusions, Elevated procalcitonin, Traumatic ecchymosis of face, Dysrhythmia, Elevated lactic acid level, Non-ST elevation AR (NSTEMI), Acute hypokalemia, Neutropenia, Thrombocytopenia Forms Stand Alone Forms: [facility] Prescriptions Prescriptions: No Action sodium bicarbonate 650 mg tablet 650 mg PO BID Qty: 60 3RF pantoprazole [Protonix] 40 mg Tablet,Delayed Release (Dr/Ec) 40 mg PO DAILY PRN (Reason: gerd) Ear Drops (carbamide peroxide) 6.5 % Drops 5 drp OTR BID PRN (Reason: earwax) Qty: 15 0RF Rx Instructions: Use twice a day up to 4 days as needed atorvastatin 40 mg Tablet 40 mg PO QAM Qty: 30 0RF polyethylene glycol 3350 [Miralax] 17 gram Powder In Packet 17 g PO QAM PRN (Reason: Constipation) Qty: 14 0RF metoprolol tartrate [Lopressor] 50 mg tablet 50 mg PO BID Qty: 60 0RF albuterol sulfate 90 mcg/actuation Hfa Aerosol Inhaler 1 inh INHALATION QID PRN (Reason: sob) Qty: 6.7 0RF ondansetron 4 mg Tablet,Disintegrating 4 mg PO Q8H PRN (Reason: Nausea) Qty: 10 0RF megestrol 40 mg Tablet 40 mg PO QAM Qty: 30 0RF amiodarone 200 mg tablet 200 mg PO QAM hydrocodone-acetaminophen 7.5-325 mg tablet 1 tab PO Q6H PRN (Reason: Pain) Qty: 20 0RF sildenafil [Viagra] 50 mg Tablet 25 - 50 mg PO DAILY PRN (Reason: sexual dysfunction) Rx Instructions: administer 30 minutes to 4 hours before activity Referrals Referrals: Doris Funez CRNP [Primary Care Provider] -
[2024-02-04 21:55] LABS: iSTAT Hemoglobin 5.1 g/dl (14.0-18.0); iSTAT Ionized Calcium 1.14 mmol/l (1.12-1.32); iSTAT Potassium 3.2 mmol/L (3.3-5.0)
[2024-02-04] MEDS ORDERED: SODIUM CHLORIDE 0.9% 250 ML IV PRN ×2 (22:02→23:25)
[2024-02-04] MEDS: OPTIRAY 320 100ml IV ONE (22:05)
[2024-02-04 22:06] LABS: Albumin Level 3.5 gm/dl (3.4-5.0); BUN Creatinine Ratio 17.9 (10-20); Bilirubin Direct 0.7 mg/dl (0-0.2); Bilirubin,Total 1.8 mg/dl (0.2-1.0); Calcium 8.7 mg/dl (8.6-10.3); Creatinine Clr Calc Pharmacy 33.9 ml/min; Est GFR (African American) 40.9 ml/min; Est GFR (Non-African American) 35.3 ml/min; Magnesium 1.8 mg/dl (1.7-2.4); Potassium 3.3 mmol/L (3.5-5.1); Total Protein 5.6 gm/dl (6.0-8.3)
[2024-02-04 22:16] LABS: Hematocrit (blood only) 16.9 % (42.0-52.0); Hemoglobin 5.7 g/dl (14.0-18.0); Mean Corpuscular Hemoglobin 28.5 pg (25.0-34.0); Mean Corpuscular Hgb Conc 33.7 g/dL (32.0-36.0); Mean Corpuscular Volume 84.5 fL (80.0-100.0); Platelet Count 5 K/uL (130-400); RDW Coefficient of Variation 17.2 % (11.5-14.5); RDW Standard Deviation 52.2 fL (36.4-46.3); Troponin I High Sensitivity 669.1 pg/ml (0-20); White Blood Count 0.59 K/ul (4.8-10.8)
[2024-02-04] MEDS: CEFEPIME 2,000 MG/20 ML VIAL IV STA (22:23)
--- NOTE | 2024-02-04 22:23 | CT Scan Report ---
Exam(s): CT FACIAL Without Contrast EXAM: CT Maxillofacial Without Intravenous Contrast CLINICAL HISTORY: Reason for exam: trauma; fall. TECHNIQUE: Axial computed tomography images of the face without intravenous contrast. CTDI is yes 36.9 mGy and DLP is 3177.82 mGy-cm. Automated exposure control was utilized for the study. A dose lowering technique was utilized adhering to the principles of ALARA. COMPARISON: No relevant prior studies available. FINDINGS: Bones/joints: No acute fracture. Prior surgery in the left sphenoid bone. Soft tissues: Moderate left anterior face and left periorbital soft tissue edema. No extension into the post septal space. Orbits: Unremarkable. Sinuses: Unremarkable. No air-fluid levels. IMPRESSION: Moderate left anterior face and left periorbital soft tissue edema. No extension into the post septal space. Electronically signed by: Coty Mcclelland MD 02/04/24 22:22 PM
[2024-02-04] MEDS: SODIUM CHLORIDE 0.9% 1,000 ML IV ONE ×2 (22:26→23:46)
[2024-02-04] MEDS: PIPERACILLIN/TAZOBACTAM 4.5 GM/100 ML BAG IV ONE (22:26)
--- NOTE | 2024-02-04 22:27 | CT Scan Report ---
Exam(s): CT CHEST With Contrast IV Amt: 93ml EXAM: CT Chest With Intravenous Contrast CLINICAL HISTORY: Reason for exam: trauma; fall. TECHNIQUE: Axial computed tomography images of the chest with intravenous contrast. CTDI is 36.9 mGy and DLP is 3177.82 mGy-cm. Automated exposure control was utilized for the study. A dose lowering technique was utilized adhering to the principles of ALARA. CONTRAST: Patient received 93ml of IV contrast COMPARISON: No relevant prior studies available. FINDINGS: Lungs: Right upper and lower lobe atelectasis versus infiltrate. Left lower lobe atelectasis. Trace effusions. No mass. Pleural space: Unremarkable. No pneumothorax. No significant effusion. Heart: Cardiomegaly with moderate atherosclerotic disease of the coronary arteries and heart valves. No significant pericardial effusion. Bones/joints: Unremarkable. No acute fracture. No dislocation. Soft tissues: Unremarkable. Vasculature: See above. Lymph nodes: Unremarkable. No enlarged lymph nodes. Tubes, lines and devices: Left-sided pacemaker. IMPRESSION: Right upper and lower lobe atelectasis versus infiltrate. Left lower lobe atelectasis. Trace effusions. No traumatic chest injury. Electronically signed by: Coty Mcclelland MD 02/04/24 22:26 PM
--- NOTE | 2024-02-04 22:29 | CT Scan Report ---
Exam(s): CT ABDOMEN + PELVIS With Contrast IV Amt: 93ml EXAM: CT Abdomen and Pelvis With Intravenous Contrast CLINICAL HISTORY: Reason for exam: trauma; fall. TECHNIQUE: Axial computed tomography images of the abdomen and pelvis with intravenous contrast. CTDI is 36.9 mGy and DLP is 3177.82 mGy-cm. Automated exposure control was utilized for the study. A dose lowering technique was utilized adhering to the principles of ALARA. CONTRAST: Patient received 93ml of IV contrast COMPARISON: No relevant prior studies available. FINDINGS: Lung bases: Bibasilar atelectasis with trace effusions. ABDOMEN: Liver: Unremarkable. No mass. Gallbladder and bile ducts: Contracted. Pancreas: Unremarkable. No mass. No ductal dilation. Spleen: Unremarkable. No splenomegaly. Adrenals: Unremarkable. No mass. Kidneys and ureters: Subcentimeter right renal cyst. No follow-up imaging required. No hydronephrosis. Stomach and bowel: Moderate stool throughout the colon and rectum. No obstruction. No mucosal thickening. PELVIS: Appendix: No findings to suggest acute appendicitis. Bladder: Unremarkable. No mass. Reproductive: Unremarkable as visualized. ABDOMEN and PELVIS: Intraperitoneal space: Unremarkable. No free air. No significant fluid collection. Bones/joints: Postoperative changes in the bilateral femurs. No evidence of acute fracture or dislocation. Moderate degenerative changes of the lumbar spine more prominent at L3-S1. Soft tissues: Unremarkable. Vasculature: Ectatic abdominal aorta without aneurysm. Severe diffuse atherosclerotic disease. Lymph nodes: Unremarkable. No enlarged lymph nodes. IMPRESSION: No acute findings in the abdomen or pelvis. Electronically signed by: Coty Mcclelland MD 02/04/24 22:28 PM
--- NOTE | 2024-02-04 22:33 | CT Scan Report ---
Exam(s): CT HEAD Without Contrast EXAM: CT Head Without Intravenous Contrast CLINICAL HISTORY: Reason for exam: trauma. TECHNIQUE: Axial computed tomography images of the head/brain without intravenous contrast. CTDI is 36.9 mGy and DLP is 3177.82 mGy-cm. Automated exposure control was utilized for the study. A dose lowering technique was utilized adhering to the principles of ALARA. COMPARISON: No relevant prior studies available. FINDINGS: Brain: Unremarkable. No hemorrhage. No significant white matter disease. No edema. Ventricles: Unremarkable. No ventriculomegaly. Bones/joints: Postsurgical changes in the left sphenoid bone. No acute fracture. Soft tissues: Moderate left lateral and frontal face soft tissue edema. Sinuses: Unremarkable as visualized. No acute sinusitis. Mastoid air cells: Unremarkable as visualized. No mastoid effusion. IMPRESSION: Moderate left lateral and frontal face soft tissue edema. No evidence of intracranial hemorrhage. Electronically signed by: Coty Mcclelland MD 02/04/24 22:32 PM
[2024-02-04 22:40] LABS: Base Excess VBG -6.6 mEq/L; HCO3 VBG 17 mmol/L; Oxygen Saturation VBG < 60.0 %; PCO2 VBG 28 mmHg (38-50); PO2 VBG 24 mmHg
[2024-02-04 23:07] LABS: ALC (manual) 0.35 K/uL (1.2-3.4); ANC (manual) 0.19 K/uL (1.4-6.5); Basophils # (manual) 0.02 K/uL (0-0.2); Basophils % (manual) 4 %; Lymphocytes # (manual) 0.35 K/uL (1.2-3.4); Lymphocytes % (manual) 60 %; Monocytes # (manual) 0.02 K/uL (0.11-0.59); Monocytes % (manual) 4 %; Neutrophils # (manual) 0.19 K/uL (1.40-6.50); Neutrophils % (manual) 32 %
[2024-02-04] MEDS: ACETAMINOPHEN 1,000 MG/100 ML VIAL IV STA (23:42)
[2024-02-04] MEDS: diphenhydrAMINE 50 MG/ML VIAL IV STA (23:43)
[2024-02-04] MEDS: CALCIUM GLUCONATE 1,000 MG/60 ML BAG IV STA (23:43)
[2024-02-04] MEDS: POTASSIUM CHLORIDE / WTR 10 MEQ/100 ML PLCT IV ONE (23:43)
[2024-02-04] MEDS ORDERED: VANCOMYCIN CONSULT ACTIVE PRN (23:44)
[2024-02-05] MEDS: MAGNESIUM SULFATE / D5W 1 GM/100 ML BAG IV ONE (00:31)
[2024-02-05] MEDS: SODIUM CHLORIDE 0.9% 500 ML IV ONE (01:13)
[2024-02-05] MEDS: POTASSIUM CHLORIDE / WTR 10 MEQ/100 ML PLCT IV SCH (01:14)
[2024-02-05] MEDS: VANCOMYCIN HCL 1,250 MG in SODIUM CHLORIDE 0.9% 250 ML IV STA (01:15)
[2024-02-05] MEDS ORDERED: STAT IV/IM STA (01:35)
[2024-02-05] MEDS: MoRPHine SULFATE 2 MG/ML CARP IV PRN ×2 (01:44→09:07)
[2024-02-05] MEDS ORDERED: PLASMA-LYTE A 1,000 ML IV SCH (01:45)
[2024-02-05] MEDS: SODIUM CHLORIDE 0.9% 1,000 ML IV SCH (01:56)
[2024-02-05] MEDS: SODIUM BICARBONATE 8.4% 75 MEQ in DEXTROSE 5% 1,000 ML IV SCH (02:03)
[2024-02-05] MEDS: CALCIUM GLUCONATE 1,000 MG/60 ML BAG IV STA (02:30)
[2024-02-05] MEDS: CASPOFUNGIN 70 MG in SODIUM CHLORIDE 0.9% 250 ML IV ONE (02:43)
[2024-02-05] MEDS: METOPROLOL TARTRATE 1 MG/ML VIAL IV SCH (02:49)
--- NOTE | 2024-02-05 03:15 | History & Physical Report ---
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 ordered: Yes
[2024-02-05] MEDS ORDERED: LEVALBUTEROL 1.25 MG/3 ML NEB NEB PRN (03:58)
[2024-02-05] MEDS: ACYCLOVIR SOD 660 MG in DEXTROSE 5% 250 ML IV SCH (04:39)
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
[2024-02-05] MEDS: PIPERACILLIN/TAZOBACTAM 4.5 GM in DEXTROSE 5% MINI-B 100 ML IV SCH (05:37)
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
[2024-02-05 07:06] LABS: Hematocrit (blood only) 19.3 % (42.0-52.0); Hemoglobin 6.7 g/dl (14.0-18.0)
[2024-02-05 07:07] LABS: Mean Corpuscular Hemoglobin 29.1 pg (25.0-34.0); Mean Corpuscular Hgb Conc 34.7 g/dL (32.0-36.0); Mean Corpuscular Volume 83.9 fL (80.0-100.0); Mean Platelet Volume 10.4 fL (9.4-12.4); Platelet Count 10 K/uL (130-400); RDW Coefficient of Variation 16.1 % (11.5-14.5); RDW Standard Deviation 49.2 fL (36.4-46.3); White Blood Count 0.81 K/ul (4.8-10.8)
--- NOTE | 2024-02-05 07:19 | Electrocardiogram Report ---
Test Reason : Blood Pressure : / mmHG Vent. Rate : 094 BPM Atrial Rate : 000 BPM P-R Int : 000 ms QRS Dur : 106 ms QT Int : 408 ms P-R-T Axes : 000 015 -05 degrees QTc Int : 510 ms Sinus rhythm Possible Inferior infarct , age undetermined Abnormal ECG When compared with ECG of 25-JAN-2024 09:30, Borderline criteria for Inferior infarct are now Present Nonspecific T wave abnormality now evident in Anterior leads Confirmed by Jeremiah Aleman ([id number]) on 02/05/2024 7:18:36 AM Referred By: REFERRED SELF Confirmed By:Fabricio Aleman
--- NOTE | 2024-02-05 07:20 | Electrocardiogram Report ---
Test Reason : Blood Pressure : / mmHG Vent. Rate : 083 BPM Atrial Rate : 083 BPM P-R Int : 192 ms QRS Dur : 106 ms QT Int : 430 ms P-R-T Axes : 118 006 003 degrees QTc Int : 505 ms Poor data quality, interpretation may be adversely affected Normal sinus rhythm Possible Inferior infarct (cited on or before 04-FEB-2024) Abnormal ECG Confirmed by Jeremiah Aleman ([id number]) on 02/05/2024 7:19:59 AM Referred By: REFERRED SELF Confirmed By:Fabricio Aleman
[2024-02-05 07:50] LABS: Dohle Bodies 1+; Hypogranular Neutrophils 3+; Immature Granulocytes # (auto) 0.04 K/uL (0.01-0.20); Immature Granulocytes % (auto) 4.9 %; Lymphocytes # (auto) 0.29 K/uL (1.20-3.40); Lymphocytes % (auto) 35.8 %; Monocytes # (auto) 0.11 K/uL (0.11-0.59); Monocytes % (auto) 13.6 %; Neutrophils # (auto) 0.37 K/uL (1.40-6.50); Neutrophils % (auto) 45.7 %; RBC Morphology Unremarkable
[2024-02-05 07:53] LABS: Albumin Level 3.4 gm/dl (3.4-5.0); BUN Creatinine Ratio 17.2 (10-20); Bilirubin Direct 0.9 mg/dl (0-0.2); Bilirubin,Total 2.6 mg/dl (0.2-1.0); Calcium 8.4 mg/dl (8.6-10.3); Creatinine Clr Calc Pharmacy 34.9 ml/min; Est GFR (African American) 43.8 ml/min; Est GFR (Non-African American) 37.8 ml/min; Magnesium 1.9 mg/dl (1.7-2.4); Phosphorus 3.9 mg/dl (2.5-4.9); Potassium 3.5 mmol/L (3.5-5.1); Total Protein 5.5 gm/dl (6.0-8.3); Uric Acid 4.3 mg/dl (2.6-7.2)
[2024-02-05 08:02] LABS: Troponin I High Sensitivity 881.6 pg/ml (0-20)
--- NOTE | 2024-02-05 08:41 | XRay Report ---
XR chest 1V portable CLINICAL HISTORY: Sepsis TECHNIQUE: Single frontal radiograph of the chest was obtained. Comparison: Comparison is made to chest radiograph 01/25/2024 FINDINGS: An implanted pacemaker is seen. Calcified aortic knob is seen. The lungs are clear. No evidence of pl eural effusion or pneumothorax. IMPRESSION: No acute abnormalities and in particular no radiographic evidence of pneumonia. ACT 112: Negative or not required by law. Electronically signed by: Kvng Delatorre M.D. 02/05/2024 8:38 AM
[2024-02-05] MEDS ORDERED: LORazepam 0.5 MG in SYRINGE 0.25 ML IV PRN (08:55)
[2024-02-05] MEDS ORDERED: ONDANSETRON 4 MG OD TAB SL PRN (08:55)
--- NOTE | 2024-02-05 08:58 | XRay Report ---
XR wrist LT min 3V routine CLINICAL HISTORY: wrist pain s/p fall TECHNIQUE: 4 views of the left wrist were obtained. Comparison: None available at the time of this dictation. FINDINGS: There is no evidence of an acute fracture. Joint spaces are well-preserved. No soft tissue abnormalit y is seen. IMPRESSION: No evidence of acute osseous injury. ACT 112: Negative or not required by law. Electronically signed by: Kvng Delatorre M.D. 02/05/2024 8:56 AM
[2024-02-05] MEDS: ONDANSETRON INJ 2 MG/ML 2 ML VIAL IV PRN (09:06)
[2024-02-05] MEDS: LORazepam 0.5 MG TAB PO PRN (09:07)
--- NOTE | 2024-02-05 12:27 | Hospitalist Progress Note ---
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 Altered mental status Possible sepsis Metabolic acidosis Possible hospital delirium Severe pancytopenia AML Received IV fluids Initial lactate is 4.6 repeat is 2.[address] chest Was started empiric IV antibiotics Zosyn and Vanco , capsofungin and acyclovir Critical care eval noted Hem/Onc eval noted Now on Comfort measures only per Family's wishes this morning Stop active treatment including anti infective agents per family's wishes CM working on home hospice Fall Bruise on the left side of the head CT head, CT face CT abdomen pelvis and CT chest unremarkable SVT/V. 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 Patient's , sister and granddaughter at bedside. Family had decided to proceed with comfort measures only. They do not want to continue active treatment Patient currently drowsy. Physical Exam Constitutional: no acute distress Drowsy Eyes: Bruise over left eye Respiratory: normal respiratory effort, lungs clear to auscultation Cardiovascular: S1 S2 Gastrointestinal (Abdomen): normal bowel sounds, soft, nontender, no hepatosplenomegaly Musculoskeletal: No pedal edema Neurologic: Drowsy Results & Data Results & Data Vital Signs (Past 12 Hours) Vital Signs Temp Pulse Pulse Resp BP BP Pulse Ox 02/05/24 10:42 02/05/24 08:50 110 H 31 H 02/05/24 08:40 100 H 27 H 02/05/24 08:30 104 H 15 02/05/24 08:20 98 H 19 02/05/24 08:10 94 H 25 H 02/05/24 08:00 118 H 29 H 02/05/24 07:50 111 H 21 02/05/24 07:40 83 21 02/05/24 07:30 85 18 02/05/24 07:20 84 20 83 L 02/05/24 07:10 85 25 H 02/05/24 07:01 85 20 02/05/24 07:01 129/86 02/05/24 07:00 86 25 H 02/05/24 06:50 93 H 19 02/05/24 06:40 103 H 20 02/05/24 06:30 91 H 22 02/05/24 06:20 115 H 31 H 02/05/24 06:10 98 H 24 02/05/24 06:00 97 H 14 02/05/24 05:50 91 H 20 02/05/24 05:43 86 111/73 02/05/24 05:40 94 H 25 H 02/05/24 05:30 98 H 24 02/05/24 05:21 36.6 C 115 H 20 111/73 93 02/05/24 05:20 111 H 23 02/05/24 05:19 36.6 C 115 H 20 111/73 93 02/05/24 05:17 90 35 H 02/05/24 05:17 111/73 02/05/24 05:17 111/73 02/05/24 05:10 94 H 19 02/05/24 05:00 117 H 29 H 02/05/24 04:50 83 33 H 02/05/24 04:40 87 17 02/05/24 04:32 100 H 23 02/05/24 04:32 128/109 H 02/05/24 04:30 95 H 21 02/05/24 04:30 148/128 H 02/05/24 04:20 85 22 02/05/24 04:19 126/88 02/05/24 04:19 87 25 H 02/05/24 04:12 36.7 C 95 H 20 128/109 H 91 02/05/24 04:10 87 29 H 02/05/24 04:01 84 19 02/05/24 04:01 115/66 02/05/24 04:00 84 19 02/05/24 03:50 109 H 17 02/05/24 03:47 95 H 16 02/05/24 03:47 111/77 02/05/24 03:40 84 21 02/05/24 03:31 99 H 23 02/05/24 03:31 93/67 L 02/05/24 03:30 107 H 23 02/05/24 03:20 113 H 25 H 93 02/05/24 03:12 36.6 C 102 H 20 126/86 91 02/05/24 03:11 36.6 C 84 24 108/68 93 02/05/24 03:10 36.6 C 84 24 108/68 93 02/05/24 03:08 36.6 C 84 24 108/68 93 02/05/24 02:56 84 119/62 02/05/24 02:42 84 24 108/68 93 02/05/24 02:27 90 20 119/62 95 02/05/24 02:24 36.6 C 92 H 22 105/7 L 02/05/24 02:10 36.5 C 95 H 22 136/84 95 02/05/24 02:10 36.5 C 95 H 136/84 98 02/05/24 02:09 36.5 C 93 H 24 133/85 98 02/05/24 02:08 36.5 C 93 H 133/85 98 02/05/24 01:50 36.5 C 89 20 120/82 99 02/05/24 01:49 36.6 C 108 H 20 120/82 99 02/05/24 01:21 36.8 C 91 H 19 121/78 02/05/24 01:14 36.8 C 99 H 18 127/84 97 02/05/24 00:30 102 H 23 118/68 93 O2 Del Method 02/05/24 10:42 Room Air 02/05/24 08:50 02/05/24 08:40 02/05/24 08:30 02/05/24 08:20 02/05/24 08:10 02/05/24 08:00 02/05/24 07:50 02/05/24 07:40 02/05/24 07:30 02/05/24 07:20 02/05/24 07:10 02/05/24 07:01 02/05/24 07:01 02/05/24 07:00 02/05/24 06:50 02/05/24 06:40 02/05/24 06:30 02/05/24 06:20 02/05/24 06:10 02/05/24 06:00 02/05/24 05:50 02/05/24 05:43 02/05/24 05:40 02/05/24 05:30 02/05/24 05:21 02/05/24 05:20 02/05/24 05:19 02/05/24 05:17 02/05/24 05:17 02/05/24 05:17 02/05/24 05:10 02/05/24 05:00 02/05/24 04:50 02/05/24 04:40 02/05/24 04:32 02/05/24 04:32 02/05/24 04:30 02/05/24 04:30 02/05/24 04:20 02/05/24 04:19 02/05/24 04:19 02/05/24 04:12 02/05/24 04:10 02/05/24 04:01 02/05/24 04:01 02/05/24 04:00 02/05/24 03:50 02/05/24 03:47 02/05/24 03:47 02/05/24 03:40 02/05/24 03:31 02/05/24 03:31 02/05/24 03:30 02/05/24 03:20 02/05/24 03:12 02/05/24 03:11 02/05/24 03:10 02/05/24 03:08 02/05/24 02:56 02/05/24 02:42 02/05/24 02:27 02/05/24 02:24 02/05/24 02:10 02/05/24 02:10 02/05/24 02:09 02/05/24 02:08 02/05/24 01:50 02/05/24 01:49 02/05/24 01:21 02/05/24 01:14 Room Air 02/05/24 00:30 Laboratory Results Abnormal lab results 02/04/24 02/04/24 02/04/24 Range/Units 21:19 21:42 22:23 WBC 0.59 L* (4.8-10.8) K/ul RBC 2.00 L (4.70-6.10) M/uL Hgb 5.7 L* (14.0-18.0) g/dl POC Hgb 5.1 L* (14.0-18.0) g/dl Hct 16.9 L* (42.0-52.0) % POC Hct 15 L* (42-52) % RDW Std Deviation 52.2 H (36.4-46.3) fL RDW Coeff of Efren 17.2 H (11.5-14.5) % Plt Count 5 L* (130-400) K/uL Neut # (Auto) (1.40-6.50) K/uL Lymph # (Auto) (1.20-3.40) K/uL Neutrophils # (Manual) 0.19 L (1.40-6.50) K/uL Total Absolute Neuts 0.19 L* (1.4-6.5) K/uL Lymphocytes # (Manual) 0.35 L (1.2-3.4) K/uL Total Abs Lymphocytes 0.35 L (1.2-3.4) K/uL Monocytes # (Manual) 0.02 L (0.11-0.59) K/uL VBG pCO2 28 L (38-50) mmHg POC Potassium 3.2 L (3.3-5.0) mmol/L Potassium 3.3 L (3.5-5.1) mmol/L Chloride 108 H (98-107) mmol/L Carbon Dioxide 17 L (21-32) mmol/L POC Total CO2 16 L (24-31) mmol/L Anion Gap 14 H (3-11) POC BUN 27 H (7-18) mg/dl BUN 33 H (6-23) mg/dl Creatinine 1.84 H (0.6-1.4) mg/dl POC Creatinine 2.0 H (0.6-1.3) mg/dl POC Glucose (70-99) mg/dl Lactate 4.6 H* (0.4-2.0) mmol/L Calcium (8.6-10.3) mg/dl Total Bilirubin 1.8 H (0.2-1.0) mg/dl Direct Bilirubin 0.7 H (0-0.2) mg/dl AST 62 H (13-39) U/L ALT (7-52) U/L Troponin I High Sens 669.1 H* (0-20) pg/ml Total Protein 5.6 L (6.0-8.3) gm/dl Procalcitonin 1.18 H (0-0.5) ng/ml Crossmatch See Detail 02/04/24 02/05/24 02/05/24 Range/Units 23:08 03:44 06:19 WBC 0.81 L* (4.8-10.8) K/ul RBC 2.30 L (4.70-6.10) M/uL Hgb 6.7 L* (14.0-18.0) g/dl POC Hgb (14.0-18.0) g/dl Hct 19.3 L* (42.0-52.0) % POC Hct (42-52) % RDW Std Deviation 49.2 H (36.4-46.3) fL RDW Coeff of Efren 16.1 H (11.5-14.5) % Plt Count 10 L* D (130-400) K/uL Neut # (Auto) 0.37 L* (1.40-6.50) K/uL Lymph # (Auto) 0.29 L (1.20-3.40) K/uL Neutrophils # (Manual) (1.40-6.50) K/uL Total Absolute Neuts (1.4-6.5) K/uL Lymphocytes # (Manual) (1.2-3.4) K/uL Total Abs Lymphocytes (1.2-3.4) K/uL Monocytes # (Manual) (0.11-0.59) K/uL VBG pCO2 (38-50) mmHg POC Potassium (3.3-5.0) mmol/L Potassium (3.5-5.1) mmol/L Chloride 109 H (98-107) mmol/L Carbon Dioxide 18 L (21-32) mmol/L POC Total CO2 (24-31) mmol/L Anion Gap 13 H (3-11) POC BUN (7-18) mg/dl BUN 30 H (6-23) mg/dl Creatinine 1.74 H (0.6-1.4) mg/dl POC Creatinine (0.6-1.3) mg/dl POC Glucose 113 H (70-99) mg/dl Lactate 2.8 H* (0.4-2.0) mmol/L Calcium 8.4 L (8.6-10.3) mg/dl Total Bilirubin 2.6 H (0.2-1.0) mg/dl Direct Bilirubin 0.9 H (0-0.2) mg/dl AST 68 H (13-39) U/L ALT 55 H (7-52) U/L Troponin I High Sens 725.5 H* 881.6 H* D (0-20) pg/ml Total Protein 5.5 L (6.0-8.3) gm/dl Procalcitonin (0-0.5) ng/ml Crossmatch
[2024-02-05] MEDS: ICU Protocol for HYPERglycemia SCH (13:01)
[2024-02-05] MEDS: VANCOMYCIN HCL 1,000 MG in SODIUM CHLORIDE 0.9% 250 ML IV SCH (13:02)
[2024-02-05] MEDS ORDERED: ALBUTEROL HFA 8 GM INHALER INH PRN (20:48)
[2024-02-05] MEDS: METOPROLOL TARTRATE 50 MG TAB PO SCH (21:23)
[2024-02-06] MEDS ORDERED: CASPOFUNGIN 50 MG in SODIUM CHLORIDE 0.9% 250 ML IV SCH (01:45)
[2024-02-06] MEDS: oxyCODONE HCL IR 5 MG TAB (IMMEDIATE RELEASE) PO PRN (08:23)
[2024-02-06] MEDS: AMIODARONE 200 MG TAB PO SCH (09:25)
--- NOTE | 2024-02-06 12:33 | Discharge Summary ---
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 As per discharge summary from [facility] which is in the chart "his admission labs showed white count 123 with elevated LDH of 804 uric acid 10.9 hemoglobin 7.4 creatinine 2.8 baseline creatinine 2 and peripheral smear findings concerning for acute leukemia .On January 25 patient was started on hydroxyurea for cytoreduction in anticipation of starting chemotherapy. Patient echo showed EF of 60 to 65% and sclerotic aortic valve without significant stenosis or regurgitation. By January 29 WBC has come down to 10. For TLS patient was given dose of rasburicase on admission and second dose on January 30 and was continued on allopurinol renally dosed. Patient was also continued on sevalamer to treat and prevent hyperphosphatemia. Patient's calcium and potassium remained stable and patient was continued on half normal saline at 150 mill per hour with good urine output. Patient was requiring narcotic pain medications because of ongoing chronic heel wounds. Wound care examined and no intervention was planned. Because of pain medication patient is getting confused and sedated. On January 30 was decided to start chemotherapy. On January 31 was started on azacitidine and venetoclax. Patient was also started on posaconazole and acyclovir continued for prophylaxis. On February 01 patient seemed to getting more confused ,lethargic and was having hallucinations thought to be secondary from hospital delirium infection, opioid oversedation due to poor renal clearance and /or chemotherapy. Patient was started on broad-spectrum antibiotics, imaging of the head, chest and abdomen /pelvis were done which were unremarkable and VBG was normal. Cultures of blood and urine no growth at discharge. Patient was requiring blood and platelet transfusions. Hypotension was minimally responsive to fluids the patient was upgraded to IMC. Ultimately because of increased agitation and confusion patient required Haldol and patient decided to take patient home AGAINST MEDICAL ADVICE in order for him to pass peacefully at home and and not wanting patient to be restrained or sedated and patient was left hospital in wheelchair". At home patient seems continued to be confused since coming from [place] yesterday and fell 3 times. And was not able to get up into the chair when called EMS and was brought to the hospital. Afebrile as per the . Patient is alert and awake and somewhat restless. He knows he is in the hospital and can tell his name. But could not tell current dates. When he fell he hit his head. He has a bruise on his left brow region. Patient denies any headache. Denies chest pain. Denies shortness of breath. Denies nausea. Denies abdominal pain. No diarrhea, as per . Appetite is poor. and patient want him to be DNR/DNI. But want to continue treatment at this time. [place] when patient signed out AMA was discharged him on venetoclax but he is not taking it at home and want to discuss with oncology about his chemo. In the ER he was having runs of SVT/V. tach. Blood pressure is okay. Initial lactic acid came at 4.6 and repeat is 2.8. He was given IV fluids and IV antibiotics. His WBC 0.5. Hemoglobin 5.7. Platelets 5. Potassium 3.3. Creatinine 1.8. Total bili 1.8. Troponin 669. Repeat is 725. Procalcitonin 1.18. PRBC and platelets are ordered for transfusion. Past medical history. As mentioned above. Past surgical history. Colonoscopy. Left hip ORIF. Left shoulder surgery. Social history. . Smoked for 41 years half pack a day. No alcohol use. No drug use. Family history. Mother had abdominal aortic aneurysm. Father had cancer. Admission Exam Per Admitting Provider General- confused , restless Head- bruise seen in left orbit and left sided of forehead. Eyes- PERRL. ENT- oropharynx clear Neck- supple, no JVD. Lungs- clear to auscultation no wheezing or crackles. Heart- regular rhythm; tachycardia no murmur, no gallop. Abdomen- normal bowel sounds, soft, nontender, no distension Extremities- no pretibial edema, no erythema seen Neuro- alert, oriented x 2. confused.; PERRL, no facial palsy; no dysarthria; moves extremities. Principal Diagnosis Acute myeloid leukemia Pancytopenia Comfort measures only Discharge Exam Constitutional + well hydrated; no acute distress Chronically ill looking Eyes PERRL, conjunctivae normal, anicteric sclerae Respiratory normal respiratory effort, lungs clear to auscultation Cardiovascular S1 S2 Gastrointestinal (Abdomen) normal bowel sounds, soft, nontender, no hepatosplenomegaly Musculoskeletal No pedal edema Neurologic PERRL, EOMI, accommodation nl, no face palsy, no dysarthria Alert and oriented to person place and time Discharge Data Allergies Allergy/AdvReac Type Severity Reaction Status Date / Time cephalexin AdvReac Intermediate vomiting, Verified 02/04/24 23:17 diarrhea Consultations 02/04/24 23:05 ED Decision to Admit Stat 02/05/24 01:10 Consult Foundry Manager Routine 02/05/24 06:49 Consult Palliative Care Routine 02/05/24 08:00 Consult Hematology Routine Ordered Studies 02/04/24 21:08 CT Abd and Pelvis [CT abd pelvis IV con only] Stat CT chest diagnostic w con Stat CT face [CT facial bones wo con] Stat CT head/brain wo con Stat Hospital Course (1) AMS (altered mental status): 73-year-old male with past medical history significant for 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, esophageal varices, CKD stage III, hypertension, hyperlipidemia, COPD, CAD, paroxysmal atrial fibrillation, tachybradycardia syndrome, SVT, s/p pacemaker abdominal aortic aneurysm, history of chronic ITP, history of diffuse large B-cell lymphoma, chronic calcaneal ulcers, 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 Altered mental status Possible sepsis Metabolic acidosis Possible hospital delirium Severe pancytopenia AML Received IV fluids Initial lactate is 4.6 repeat is 2.[address] chest Was started empiric IV antibiotics Zosyn and Vanco , capsofungin and acyclovir Was admitted initially to ICU and Evaluated by Critical care and Appliance Service Supervisor. Patient and family decided to change to Comfort measures only Active treatment was discontinued per wishes Fall Bruise on the left side of the head CT head, CT face CT abdomen pelvis and CT chest unremarkable SVT/V. tach History of atrial fibrillation, tachybradycardia syndrome, SVT s/p pacemaker At home, he was on amiodarone and Lopressor reported he will like to continue amiodarone and lopressor CKD stage III Presented with creatinine 1.84 around baseline Elevated troponin Mostly demand ischemia Being discharged home on home hospice Total Time Total Time Spent Total Time Spent (In Minutes): 35 Total Time Includes: Examination of the Patient, Discharge Planning and Medication Reconciliation Discharge Plan Discharge Items Patient Disposition: Hospice - Home Reason For Visit: AMS, PANCYTOPENIA, SVT/VTACH Discharge Diagnosis: Acute myeloid leukemia Pancytopenia Comfort measures only Activity: Resume your previous activity Non-emergency contact: Curriculum Supervisor Call non-emergency contact if: you have any medication questions and your symptoms worsen Follow-up/Referrals: Doris Funez CRNP [Primary Care Provider] - Diet: Regular Addtl Attending Provider Instructions: Mr De Souza You came to the hospital with altered mental status. You and your family opted for comfort measures only You are being discharged home on home hospice. Please contact home hospice if you have any concerns or medical problems. Pending Studies at Discharge: No Stand-Alone Forms: [facility] Medications and DC Order Prescriptions: New morphine 10 mg/5 mL solution 5 mg PO Q4H PRN (Reason: Pain or shortness of breath) Qty: 100 0RF lorazepam 0.5 mg Tablet 0.5 mg PO Q4H PRN (Reason: agitation) Qty: 30 0RF Continued Ear Drops (carbamide peroxide) 6.5 % Drops 5 drp OTR BID PRN (Reason: earwax) Qty: 15 0RF Rx Instructions: Use twice a day up to 4 days as needed polyethylene glycol 3350 [Miralax] 17 gram Powder In Packet 17 g PO QAM PRN (Reason: Constipation) Qty: 14 0RF metoprolol tartrate [Lopressor] 50 mg tablet 50 mg PO BID Qty: 60 0RF albuterol sulfate 90 mcg/actuation Hfa Aerosol Inhaler 1 inh INHALATION QID PRN (Reason: sob) Qty: 6.7 0RF ondansetron 4 mg Tablet,Disintegrating 4 mg PO Q8H PRN (Reason: Nausea) Qty: 10 0RF amiodarone 200 mg tablet 200 mg PO QAM Discontinued sodium bicarbonate 650 mg tablet 650 mg PO BID Qty: 60 3RF pantoprazole [Protonix] 40 mg Tablet,Delayed Release (Dr/Ec) 40 mg PO DAILY PRN (Reason: gerd) atorvastatin 40 mg Tablet 40 mg PO QAM Qty: 30 0RF megestrol 40 mg Tablet 40 mg PO QAM Qty: 30 0RF hydrocodone-acetaminophen 7.5-325 mg tablet 1 tab PO Q6H PRN (Reason: Pain) Qty: 20 0RF sildenafil [Viagra] 50 mg Tablet 25 - 50 mg PO DAILY PRN (Reason: sexual dysfunction) Rx Instructions: administer 30 minutes to 4 hours before activity Discharge Orders: Discharge Order (Routine); Ordered 02/06/24 Ordered By: Tish Monique/Other Patient Handouts: What Is Palliative Care Admission Data Admit Date/Time: 02/04/24 23:49 Attending Provider: Tish Gonzalez I. Admit Provider: John Day Primary Care Provider: Doris Funez Other Providers: [facility]; [facility]; John Day; Mason Navarro; Joanna Cordova; Niyah Rojas Other Interventions: Discharge Summary Assessment (RN) Last Done: 02/06/24 12:49
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
== END 2024-02-06 16:01 | disposition hospice, home (50) | DRG 871 ==
LOC: ED 20:15 → 1E 23:49 → 3N 02-05 14:43